=== PATIENT | female | born 1965 | race Caucasian/White ===

== ENCOUNTER → 2016-12-05 | Outpatient (CLI) | payer OTHER ==
[~2016-12-05] MED LIST: ATEN-173 PO; CLON0.5T3 PO; PARO1TAB27 PO; ZNTT/150 PO
--- NOTE | 2016-12-05 15:07 | DIAGNOSTIC IMAGING REPORT ---
CHEST 2 VIEWS ROUTINE HISTORY: Cough. COMPARISON: Chest 07/26/2015. Chest CT outside hospital 04/08/2016. FINDINGS: No pneumothorax. The right lung remains clear. The heart is normal in size. Stable volume loss within the left hemithorax with blunting of the left lateral costophrenic sulcus. There is hyperexpansion of the remaining left lung. This is consistent with prior left upper lobectomy. No new focal lung consolidations. No evidence for pulmonary edema. IMPRESSION: Stable postoperative changes within the left hemithorax. No new focal lung consolidations to suggest pneumonia. Electronically signed by: Bhavik Lowe M.D. 12/05/2016 3:06 PM Dictated Date/Time: 12/05/2016 3:03 PM
[2016-12-05 16:26] LABS: INFLUENZA A PCR Neg for Influ A (NEG); INFLUENZA B PCR Neg for Influ B (NEG)
== END | disposition home or self-care (01) ==
LOC: C.RAD 14:04
PROVIDERS: ATTEND Internal Medicine Pulmonary Disease
DX: R05 Cough (principal)

== ENCOUNTER → 2017-01-01 | Outpatient (CLI) | payer OTHER ==
--- NOTE | 2017-01-02 12:17 | MAMMOGRAPHY REPORT ---
BILATERAL DIGITAL SCREENING MAMMOGRAM TOMOSYNTHESIS WITH CAD: 01/01/2017 CLINICAL HISTORY: Routine screening. Patient has no complaints. TECHNIQUE: Breast tomosynthesis in addition to standard 2D mammography was performed. Current study was also evaluated with a Computer Aided Detection (CAD) system. COMPARISON: Comparison is made to exams dated: 12/28/2015 mammogram, 07/16/2015 mammogram, 01/12/2015 mammogram, 12/25/2014 mammogram, 10/14/2012 mammogram, and 07/24/2012 ultrasound - [facility] [address] BREAST COMPOSITION: The tissue of both breasts is extremely dense, which lowers the sensitivity of mammography. FINDINGS: There is a stable metallic biopsy marker in the 6:00 left breast within a stable partiall y circumscribed mass, best visualized on the tomosynthesis images. Linear scar markers overlie the periareolar and lateral left breast. There are stable benign-appearing coarse calcifications in the left breast. No new suspicious mass, architectural distortion or cluster of microcalcifications is seen. IMPRESSION: ACR BI-RADS CATEGORY 1: NEGATIVE There is no mammographic evidence of malignancy. A 1 year screening mammogram is recommended. The p atient will receive written notification of the results. Approximately 10% of breast cancers are not detected with mammography. A negative mammographic repor t should not delay biopsy if a clinically suggestive mass is present. Sindhu Fishman M.D. ay/:01/01/2017 22:00:58 Pourer Metal: Radha CARNES)(Mina), [facility] letter sent: Normal 1/2 BI-RADS Code: ACR BI-RADS Category 1: Negative
== END | disposition home or self-care (01) ==
LOC: C.MAMM 13:06
PROVIDERS: ATTEND Family Medicine
DX: Z12.31 Encounter for screening mammogram for malignant neoplasm of breast (principal)

== ENCOUNTER → 2017-06-22 | Outpatient (CLI) | payer OTHER ==
--- NOTE | 2017-06-22 10:05 | DIAGNOSTIC IMAGING REPORT ---
CHEST 2 VIEWS ROUTINE CLINICAL HISTORY: [id number] COMPARISON STUDY: 12/05/2016 FINDINGS: The cardiac and mediastinal contours remain stable. Postsurgical changes are evident within the left hemithorax. There is chronic pleural scarring at the left lung base. The right lung is clear.[ IMPRESSION: Postsurgical changes of a presumed prior left lobectomy. No active disease in the chest. Electronically signed by: Nnamdi De Leon M.D. 06/22/2017 10:03 AM Dictated Date/Time: 06/22/2017 10:03 AM
[2017-06-22 14:18] LABS: INFLUENZA A PCR Neg for Influ A (NEG); INFLUENZA B PCR Neg for Influ B (NEG)
== END | disposition home or self-care (01) ==
LOC: C.RAD1850 09:44
PROVIDERS: ATTEND Physician Assistant
DX: R05 Cough (principal)

== ENCOUNTER → 2018-01-03 | Outpatient (CLI) | payer OTHER ==
[~2018-01-03] MED LIST changes: +RANI150T85 PO; -ZNTT/150 PO
--- NOTE | 2018-01-03 14:43 | MAMMOGRAPHY REPORT ---
BILATERAL DIGITAL SCREENING MAMMOGRAM TOMOSYNTHESIS WITH CAD: 01/03/2018 CLINICAL HISTORY: Routine screening. Patient has no complaints. TECHNIQUE: Breast tomosynthesis in addition to standard 2D mammography was performed. Current study was also evaluated with a Computer Aided Detection (CAD) system. COMPARISON: Comparison is made to exams dated: 01/01/2017 mammogram, 12/28/2015 mammogram, 07/16/2015 m ammogram, 01/12/2015 mammogram, 12/25/2014 mammogram, and 10/14/2012 mammogram - [facility] enter. BREAST COMPOSITION: The tissue of both breasts is extremely dense, which lowers the sensitivity of m ammography. FINDINGS: No suspicious masses, calcifications, or areas of architectural distortion are noted in ei ther breast. There has been no significant interval change compared to prior exams. Linear scar nisha ers denote scars on the left breast. There are stable postsurgical changes in the left anterior meme st. A circumscribed benign-appearing mass with an associated biopsy clip in the left 6:00 breast is not significantly changed. Scattered benign-appearing calcifications are again noted. IMPRESSION: ACR BI-RADS CATEGORY 2: BENIGN There is no mammographic evidence of malignancy. A 1 year screening mammogram is recommended. The pa tient will receive written notification of the results. Approximately 10% of breast cancers are not detected with mammography. A negative mammographic report should not delay biopsy if a clinically suggestive mass is present. Leonora Leo M.D. /:01/03/2018 13:44:34 Landscaping Specialist: Kellen Rivera, [facility] letter sent: Normal 1/2 BI-RADS Code: ACR BI-RADS Category 2: Benign
== END | disposition home or self-care (01) ==
LOC: C.MAMM 13:13
PROVIDERS: ATTEND Family Medicine
DX: Z12.31 Encounter for screening mammogram for malignant neoplasm of breast (principal)

== ENCOUNTER 2023-06-11 05:23 | Inpatient (IN) ==
[2023-06-11] MEDS ORDERED: ALBUT/IPRATROP 3MG/0.5MG NEB 3 ML VIAL ONE ×2 (05:34→08:33)
[2023-06-11] MEDS ORDERED: ALBUT/IPRATROP 3MG/0.5MG NEB 3 ML VIAL NEB STA (05:35)
[2023-06-11] MEDS ORDERED: DEXAMETHASONE SOD INJ 4 MG/ML VIAL IV STA (05:36)
[2023-06-11] MEDS ORDERED: DEXAMETHASONE SOD INJ 4 MG/ML VIAL ONE (05:38)
[2023-06-11] MEDS ORDERED: ONDANSETRON INJ 2 MG/ML 2 ML VIAL ONE (05:44)
[2023-06-11] MEDS: MAGNESIUM SULFATE / D5W 1 GM/100 ML BAG IV SCH ×2 (05:49→06:12)
[2023-06-11] MEDS ORDERED: ALBUT/IPRATROP 3MG/0.5MG NEB 3 ML VIAL NEB ONE ×2 (05:50→08:38)
[2023-06-11] MEDS ORDERED: FAMOTIDINE 20MG IV PUSH 20 MG/5 ML SYR IV STA (05:59)
[2023-06-11] MEDS ORDERED: diphenhydrAMINE 50 MG/ML VIAL IV STA (05:59)
[2023-06-11] MEDS ORDERED: EPINEPHrine INJ 1 MG/ML AMP IM STA (05:59)
[2023-06-11 06:14] LABS: Basophils # (auto) 0.04 K/uL (0.00-0.20); Basophils % (auto) 0.2 %; Hematocrit (blood only) 31.7 % (37.0-47.0); Hemoglobin 11.7 g/dl (12.0-16.0); Immature Granulocytes # (auto) 0.08 K/uL (0.01-0.20); Immature Granulocytes % (auto) 0.5 %; Lymphocytes # (auto) 1.88 K/uL (1.20-3.40); Lymphocytes % (auto) 10.7 %; Mean Corpuscular Hemoglobin 30.3 pg (25.0-34.0); Mean Corpuscular Hgb Conc 36.9 g/dL (32.0-36.0); Mean Corpuscular Volume 82.1 fL (80.0-100.0); Mean Platelet Volume 10.8 fL (9.4-12.4); Monocytes # (auto) 1.04 K/uL (0.11-0.59); Monocytes % (auto) 5.9 %; Neutrophils # (auto) 14.52 K/uL (1.40-6.50); Neutrophils % (auto) 82.7 %; Platelet Count 197 K/uL (130-400); RDW Coefficient of Variation 14.2 % (11.5-14.5); RDW Standard Deviation 41.5 fL (36.4-46.3); Red Blood Count 3.86 M/uL (4.20-5.40); White Blood Count 17.56 K/ul (4.8-10.8)
--- NOTE | 2023-06-11 06:21 | Emergency Department Note ---
Impression & Plan Anaphylaxis, Pneumonia, Acute hyponatremia Patient was admitted to the [facility]. ED Provider Note NAME: MERLE JENSEN AGE: 58 SEX: F ARRIVES VIA: Walk-In INFORMANT: Patient and her ED PROVIDER(S): Emmie Cortez DO CHIEF COMPLAINT: Severe respiratory distress PLAN: Disposition: Admit to the [facility] service Condition: Critical MEDICAL DECISION MAKING: This is a 58-year-old female patient with history of asthma, COPD and lung cancer who presents to the emergency department with severe respiratory distress. Presenting O2 saturation was 54%. explains that the patient was in her usual state of health until Sunday evening when she had been with friends drinking [place] wine coolers around a camp fire. She had an acute and sudden onset of shortness of breath and wheezing. The symptoms continued till later that evening. Symptoms seem to improve somewhat overnight and throughout the day on Sunday but then drastically worsened again Sunday night into Sunday. The patient had been wheezing and coughing. Upon presentation to the emergency department, the patient's O2 saturation was 54% she had very little air movement with extreme wheezing on inspiration and expiration. She was quickly treated with DuoNeb treatments, supplemental oxygen, IV magnesium and IV steroids. Patient was noted to be significantly hyponatremic was bolused with IV normal saline solution. After some time, the patient's remembered that years ago, she had a very similar reaction to this after drinking malt liquor. At that point I felt this may be an acute allergic reaction as a cause of her severe hypoxia and wheezing. The patient was given IM epinephrine, IV Benadryl and IV Pepcid. Patient had an ABG performed which showed a pH of 7.31, PCO2 of 49 and PO2 of 54 bicarb is 24.8 Triage Nursing notes reviewed and agree with them. Additional history obtained from the patient's who brought her here Prior medical records reviewed Vital Signs: reviewed and remarkable for significant hypoxia Differential diagnosis: Aspiration pneumonia, pneumothorax, COPD exacerbation, acute asthma attack, allergic reaction ER treatment provided: personnel monitor Supplemental oxygen Twelve-lead EKG DuoNeb treatment IV Decadron IV magnesium IM epinephrine IV Benadryl IV Pepcid IV Rocephin Diagnostics interpreted by me: ECG: Normal sinus rhythm at a rate of 97 with T wave inversions in lead I and aVL. There is no ST segment elevation or signs of ischemia. There is no ectopy. Cardiac Monitoring: Normal sinus rhythm at a rate of 97 Laboratory studies: See below Imaging studies: As per my independent interpretation Portable chest x-ray: Right basilar opacity CT scan of the chest: Pending HPI: 58/F arrives for evaluation of severe shortness of breath. Patient was in her usual state of health 2 days ago when she had a sudden onset of severe shortness of breath and wheezing. This seemed to coincide with drinking some [place] wine coolers. The patient denies coughing or potentially aspirating while drinking these beverages. She did have difficulty breathing and significant wheezing for some time after this but symptoms began to improve over the weekend but then dramatically worsened again last night to the point that hafsa black asked her to bring her to the hospital. PAST MEDICAL HISTORY:COPD, asthma, lung cancer with prior lobectomy PAST SURGICAL HISTORY:See Below FAMILY HISTORY:See Below SOCIAL HISTORY:Patient lives with her and still smokes occasionally HOME MEDICATIONS:See list ALLERGIES:See long list VITALS:See Below PHYSICAL EXAMINATION: HEENT: Head - normocephalic and atraumatic. Pupils are equal, round, and reactive to light. Extraocular eye muscles are intact, and sclera are anicteric. Nose - moist nasal mucosa without discharge. Mouth - moist buccal mucosa. Oropharynx is nonerythematous and there is no tonsillar exudate or edema noted. No uvular edema noted. Neck: Supple; no cervical lymphadenopathy or JVD Heart: Regular rate and rhythm. There is a normal S1 and S2 with no murmurs, clicks, or gallops appreciated. Lungs: Very little air movement with inspiratory and expiratory wheezing Abdomen: Soft, completely nontender, nondistended, with good bowel sounds. There are no palpable pulsatile masses or hepatosplenomegaly. There is no guarding, rigidity, or rebound noted. Extremities: No evidence of cyanosis, clubbing, or edema. There are easily palpable peripheral pulses. Skin: warm and dry with good turgor and no rashes. ED COURSE: Patient was evaluated in room B1 emergently. The patient's O2 saturation was 54% in triage. Patient was placed on a nonrebreather mask. She was placed on the cardiac nurse specialist. An order was placed for continuous cardiac monitoring. She was in a normal sinus rhythm at a rate of 97. A twelve-lead EKG was obtained. She was started on a DuoNeb treatment. An IV lock was initiated and labs are drawn as above. The patient was given a dose of IV Decadron. A luca ble chest x-ray was performed which showed evidence of a fairly large right basilar opacity. There is evidence of emphysematous changes. The patient was started on IV magnesium. Patient's was at the bedside and was trying to provide more history. Patient and remembered that sometime many years ago the patient had a very similar episode to this when she had an allergic reaction to malt liquor. At this point, I switched gears and began to treat the patient for acute anaphylaxis. She was given a dose of IM epinephrine, IV Benadryl, and IV Pepcid. She was placed on an hour-long DuoNeb treatment. An ABG was obtained. Overall, the patient's condition and is significantly improved after this. Patient had an elevated D-dimer and went for CT scan of the chest which confirmed that she had a fairly large right basilar opacity. She has significant allergies to antibiotics but has taken Keflex and clindamycin successfully in the past. I will treat her with IV Rocephin to start. I discussed the case with Dr. Pham from the [facility] and they will admit for further inpatient care. I have personally spent greater than 75 minutes of critical care time in the direct management of this patient. This includes bedside care, interpretation of diagnostic studies, and testing, discussion with consultants, patient, and family members, and other required patient management activities. This 75 minutes is in excess of all separately billable procedures. 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 Lumbar stenosis (09/25/14) Malignant neoplasm of upper lobe, left bronchus or lung Pulmonary emphysema Pulmonary nodule Surgical History H/O breast surgery H/O splenectomy History of D&C History of lumbar surgery Family History Father Hypertension Mother Lung cancer Other Breast cancer COPD (chronic obstructive pulmonary disease) Diabetes Social History Smoking Status: Former smoker Smoking End Date: Quit 04/24/23; Hx Alcohol Use: Yes Hx Substance Use: No Communication Ability: Effective Anesthetic Assistant Required: No Beliefs That Will Affect Care: None marital status: Current Living Situation: Significant Other current occupational status: disabled Other Information That Helps Us Care for You: No Feels Safe at Home: Yes Safety Concerns: Feels Safe At This Time Assistive Devices: Denture - Lower and Glasses Allergies Allergies Allergy/AdvReac Type Severity Reaction Status Date / Time Bactrim Allergy Intermediate HIVES Verified 07/26/15 07:15 Sulfa (Sulfonamide Allergy Intermediate BACTRIM- Verified 08/01/21 10:17 Antibiotics) HIVES sulfamethoxazole Allergy Intermediate HIVES Verified 08/01/21 10:17 trimethoprim Allergy Intermediate HIVES Verified 08/01/21 10:17 erythromycin base Allergy Unknown Verified 08/01/21 10:17 metaxalone Allergy Unknown Verified 08/01/21 10:17 morphine Allergy Unknown . Verified 08/01/21 10:17 neomycin Allergy Unknown Verified 08/01/21 10:17 Quinolones Allergy Unknown Verified 08/01/21 10:17 tetracycline Allergy Unknown Verified 08/01/21 10:17 amoxicillin [From Augmentin] Allergy Verified 08/01/21 10:17 clavulanic acid Allergy Verified 08/01/21 10:17 [From Augmentin] umeclidinium Allergy Verified 08/01/21 10:17 [From Anoro Ellipta] vilanterol Allergy Verified 08/01/21 10:17 [From Anoro Ellipta] moxifloxacin AdvReac Unknown hives Verified 08/01/21 10:17 Home Meds Home Medications Medication Instructions Recorded Confirmed aripiprazole 5 mg tablet (Abilify) 5 mg PO HS 12/03/19 06/11/23 aspirin 81 mg tablet 81 mg PO DAILY 02/04/20 06/11/23 cetirizine 10 mg tablet 10 mg PO DAILY 02/04/20 06/11/23 clonazepam 0.5 mg tablet 0.5 mg PO BID PRN Anxiety 02/04/20 06/11/23 amlodipine 10 mg tablet 10 mg PO DAILY 08/01/21 06/11/23 losartan 50 mg tablet 50 mg PO BID 08/01/21 06/11/23 atorvastatin 20 mg tablet 20 mg PO DAILY 06/11/23 06/11/23 carvedilol 25 mg tablet 25 mg PO BID 06/11/23 06/11/23 furosemide 20 mg tablet 20 mg PO DAILY 06/11/23 06/11/23 paroxetine HCl 40 mg tablet 40 mg PO DAILY 06/11/23 06/11/23 Previous Rx's Medication Instructions Recorded albuterol sulfate 2.5 mg/3 mL 2.5 mg (3 mL) inhalation Q4H PRN 08/14/19 (0.083 %) solution for nebulization shortness of breath or wheezing #180 mL albuterol sulfate 90 mcg/actuation 2 puff inhalation Q4H PRN 02/20/22 aerosol inhaler (Ventolin HFA) shortness of breath ,coughing or wheezing #18 grams Results & Data (ED) Vital Signs Vital Signs - 24 hr 06/11/23 05:28 06/11/23 05:35 06/11/23 05:54 Temperature 36.7 C Temperature Source Temporal Artery Scan Pulse Rate 112 H 98 H Pulse Rate [Right Finger] Pulse Rate from SpO2 Sensor Respiratory Rate 40 H Respiratory Effort / Characteristics Blood Pressure 191/88 H Blood Pressure [Right Arm] Blood Pressure Mean 122 Blood Pressure Mean [Right Arm] Blood Pressure Position Sitting Pulse Oximetry 54 L 54 L Oxygen Delivery Method Room Air Room Air Oxygen Flow Rate Sepsis Recent Fever Within 48 Hours No Sepsis New/Unexplained Change in Mental Status N/A Sepsis Action Taken by Nursing Physician Notified Oxygen Flow Rate - Titration 15 Pulse Oximetry Post Tiitration 96 06/11/23 05:50 06/11/23 06:04 06/11/23 05:36 Temperature Temperature Source Pulse Rate 99 H Pulse Rate [Right Finger] 91 H 97 H Pulse Rate from SpO2 Sensor 99 H Respiratory Rate 22 24 24 Respiratory Effort / Characteristics Spontaneous Short of Breath Spontaneous Short of Breath Blood Pressure 188/114 H Blood Pressure [Right Arm] Blood Pressure Mean 138 Blood Pressure Mean [Right Arm] Blood Pressure Position Pulse Oximetry 97 94 98 Oxygen Delivery Method Non-rebreather Nasal Cannula Non-rebreather Oxygen Flow Rate 15 15 Sepsis Recent Fever Within 48 Hours Sepsis New/Unexplained Change in Mental Status Sepsis Action Taken by Nursing Oxygen Flow Rate - Titration Pulse Oximetry Post Tiitration 06/11/23 05:54 06/11/23 06:00 06/11/23 06:15 Temperature Temperature Source Pulse Rate 82 77 90 Pulse Rate [Right Finger] Pulse Rate from SpO2 Sensor 81 76 89 Respiratory Rate 22 20 22 Respiratory Effort / Characteristics Blood Pressure 163/93 H 159/88 H 169/89 H Blood Pressure [Right Arm] Blood Pressure Mean 116 111 115 Blood Pressure Mean [Right Arm] Blood Pressure Position Pulse Oximetry 96 93 91 Oxygen Delivery Method Non-rebreather Non-rebreather Nebulizer Oxygen Flow Rate Sepsis Recent Fever Within 48 Hours Sepsis New/Unexplained Change in Mental Status Sepsis Action Taken by Nursing Oxygen Flow Rate - Titration Pulse Oximetry Post Tiitration 06/11/23 06:30 06/11/23 06:45 06/11/23 07:43 Temperature Temperature Source Pulse Rate 77 75 Pulse Rate [Right Finger] 83 Pulse Rate from SpO2 Sensor 77 Respiratory Rate 22 24 20 Respiratory Effort / Characteristics Blood Pressure 156/87 H 173/87 H Blood Pressure [Right Arm] 175/87 H Blood Pressure Mean 110 115 Blood Pressure Mean [Right Arm] 116 Blood Pressure Position Pulse Oximetry 93 92 92 Oxygen Delivery Method Nebulizer Nasal Cannula Oxymask Oxygen Flow Rate 12 12 Sepsis Recent Fever Within 48 Hours Sepsis New/Unexplained Change in Mental Status Sepsis Action Taken by Nursing Oxygen Flow Rate - Titration Pulse Oximetry Post Tiitration 06/11/23 07:00 06/11/23 07:00 06/11/23 07:42 Temperature Temperature Source Pulse Rate 80 88 Pulse Rate [Right Finger] Pulse Rate from SpO2 Sensor 81 88 Respiratory Rate 21 27 H Respiratory Effort / Characteristics Blood Pressure 159/78 H Blood Pressure [Right Arm] Blood Pressure Mean 105 Blood Pressure Mean [Right Arm] Blood Pressure Position Pulse Oximetry 94 91 Oxygen Delivery Method High Flow Nasal Cannula High Flow Nasal Cannula Oxygen Flow Rate 12 12 Sepsis Recent Fever Within 48 Hours Sepsis New/Unexplained Change in Mental Status Sepsis Action Taken by Nursing Oxygen Flow Rate - Titration Pulse Oximetry Post Tiitration 06/11/23 07:44 06/11/23 07:44 06/11/23 07:45 Temperature Temperature Source Pulse Rate 84 84 Pulse Rate [Right Finger] Pulse Rate from SpO2 Sensor 83 84 Respiratory Rate 26 H 22 Respiratory Effort / Characteristics Blood Pressure 175/87 H Blood Pressure [Right Arm] Blood Pressure Mean 108 Blood Pressure Mean [Right Arm] Blood Pressure Position Pulse Oximetry 92 91 Oxygen Delivery Method High Flow Nasal Cannula Oxygen Flow Rate 12 Sepsis Recent Fever Within 48 Hours Sepsis New/Unexplained Change in Mental Status Sepsis Action Taken by Nursing Oxygen Flow Rate - Titration Pulse Oximetry Post Tiitration 06/11/23 08:15 06/11/23 08:00 Temperature Temperature Source Pulse Rate 85 Pulse Rate [Right Finger] Pulse Rate from SpO2 Sensor 86 Respiratory Rate 26 H Respiratory Effort / Characteristics Blood Pressure Blood Pressure [Right Arm] Blood Pressure Mean Blood Pressure Mean [Right Arm] Blood Pressure Position Pulse Oximetry 87 L 88 L Oxygen Delivery Method Nasal Cannula Oxymask Oxygen Flow Rate 14 Sepsis Recent Fever Within 48 Hours Sepsis New/Unexplained Change in Mental Status Sepsis Action Taken by Nursing Oxygen Flow Rate - Titration 15 Pulse Oximetry Post Tiitration 84 L Laboratory Data 06/11/23 05:40 06/11/23 05:40 Lab Results 06/11/23 06/11/23 06/11/23 Range/Units 05:40 05:40 05:40 WBC 17.56 H (4.8-10.8) K/ul RBC 3.86 L (4.20-5.40) M/uL Hgb 11.7 L (12.0-16.0) g/dl POC Hgb (12.0-16.0) g/dl Hct 31.7 L (37.0-47.0) % POC Hct (37-47) % MCV 82.1 (80.0-100.0) fL MCH 30.3 (25.0-34.0) pg MCHC 36.9 H (32.0-36.0) g/dL RDW Std Deviation 41.5 (36.4-46.3) fL RDW Coeff of Shanna 14.2 (11.5-14.5) % Plt Count 197 (130-400) K/uL MPV 10.8 (9.4-12.4) fL Immature Gran % (Auto) 0.5 % Neut % (Auto) 82.7 % Lymph % (Auto) 10.7 % [place] % (Auto) 5.9 % Eos % (Auto) 0.0 % Baso % (Auto) 0.2 % Neut # (Auto) 14.52 H (1.40-6.50) K/uL Lymph # (Auto) 1.88 (1.20-3.40) K/uL [place] # (Auto) 1.04 H (0.11-0.59) K/uL Eos # (Auto) 0.00 (0.00-0.50) K/uL Baso # (Auto) 0.04 (0.00-0.20) K/uL Immature Gran # (Auto) 0.08 (0.01-0.20) K/uL D-Dimer 1610 H* (0-500) ug/L FEU POC pH (7.35-7.45) POC pCO2 (35-46) mmHg POC pO2 (80-95) mmHg POC HCO3 (19-24) lacy/L POC Total CO2 (24-31) mmol/L POC Base Excess (-9-1.8) lacy/L POC ABG O2 Sat (90-95) % POC Sodium (135-144) mmol/L Sodium 118 L* (136-145) mmol/L POC Potassium (3.3-5.0) mmol/L Potassium 4.0 (3.5-5.1) mmol/L Chloride 87 L (98-107) mmol/L Carbon Dioxide 23 (21-32) mmol/L Anion Gap 8 (3-11) BUN 17 (6-23) mg/dl Creatinine 1.15 (0.6-1.2) mg/dl Est Cr Clr Drug Dosing 46.2 ml/min Est GFR ( Amer) 61.2 ml/min Est GFR (Non-Af Amer) 52.8 ml/min BUN/Creatinine Ratio 14.8 (10-20) Glucose 148 H (70-99(Fasting)) mg/dl Lactate (0.4-2.0) mmol/L Calcium 8.4 L (8.6-10.3) mg/dl Magnesium 1.5 L (1.7-2.4) mg/dl Total Bilirubin 1.9 H (0.2-1.0) mg/dl AST 36 (13-39) U/L ALT 25 (7-52) U/L Alkaline Phosphatase 82 (34-104) U/L Troponin I High Sens 90.1 H* (0-14) pg/ml Total Protein 7.3 (6.0-8.3) gm/dl Albumin 4.3 (3.4-5.0) gm/dl Globulin 3.0 (2.5-4.0) gm/dl Albumin/Globulin Ratio 1.4 (0.9-2) Procalcitonin (0-0.5) ng/ml 06/11/23 06/11/23 06/11/23 Range/Units 05:40 05:54 06:22 WBC (4.8-10.8) K/ul RBC (4.20-5.40) M/uL Hgb (12.0-16.0) g/dl POC Hgb 12.6 (12.0-16.0) g/dl Hct (37.0-47.0) % POC Hct 37 (37-47) % MCV (80.0-100.0) fL MCH (25.0-34.0) pg MCHC (32.0-36.0) g/dL RDW Std Deviation (36.4-46.3) fL RDW Coeff of Shanna (11.5-14.5) % Plt Count (130-400) K/uL MPV (9.4-12.4) fL Immature Gran % (Auto) % Neut % (Auto) % Lymph % (Auto) % [place] % (Auto) % Eos % (Auto) % Baso % (Auto) % Neut # (Auto) (1.40-6.50) K/uL Lymph # (Auto) (1.20-3.40) K/uL [place] # (Auto) (0.11-0.59) K/uL Eos # (Auto) (0.00-0.50) K/uL Baso # (Auto) (0.00-0.20) K/uL Immature Gran # (Auto) (0.01-0.20) K/uL D-Dimer (0-500) ug/L FEU POC pH 7.31 L (7.35-7.45) POC pCO2 49 H (35-46) mmHg POC pO2 54 L (80-95) mmHg POC HCO3 25 H (19-24) lacy/L POC Total CO2 26 (24-31) mmol/L POC Base Excess -1.0 (-9-1.8) lacy/L POC ABG O2 Sat 84.0 L (90-95) % POC Sodium 118 L* (135-144) mmol/L Sodium (136-145) mmol/L POC Potassium 3.9 (3.3-5.0) mmol/L Potassium (3.5-5.1) mmol/L Chloride (98-107) mmol/L Carbon Dioxide (21-32) mmol/L Anion Gap (3-11) BUN (6-23) mg/dl Creatinine (0.6-1.2) mg/dl Est Cr Clr Drug Dosing ml/min Est GFR ( Amer) ml/min Est GFR (Non-Af Amer) ml/min BUN/Creatinine Ratio (10-20) Glucose (70-99(Fasting)) mg/dl Lactate 1.0 (0.4-2.0) mmol/L Calcium (8.6-10.3) mg/dl Magnesium (1.7-2.4) mg/dl Total Bilirubin (0.2-1.0) mg/dl AST (13-39) U/L ALT (7-52) U/L Alkaline Phosphatase (34-104) U/L Troponin I High Sens (0-14) pg/ml Total Protein (6.0-8.3) gm/dl Albumin (3.4-5.0) gm/dl Globulin (2.5-4.0) gm/dl Albumin/Globulin Ratio (0.9-2) Procalcitonin 0.29 (0-0.5) ng/ml Administered Medications Aripiprazole (Aripiprazole 5 Mg Tab) 5 mg PO HS [facility] Stop: 07/11/23 20:59 Last Admin: 06/11/23 15:45 Dose: 5 mg Documented By: MARIANNA Carvedilol (Carvedilol 25 Mg Tab) 25 mg PO BIDM [facility] Stop: 07/11/23 16:59 Last Admin: 06/11/23 15:45 Dose: 25 mg Documented By: MARIANNA Ceftriaxone Sodium 1,000 mg/ (Dextrose) 60 mls @ 100 mls/hr IV Q24H [facility]; Protocol Stop: 06/18/23 15:59 Last Infusion: 06/11/23 16:26 Dose: 0 mls/hr Documented By: Admin: 06/11/23 15:55 Dose: 100 mls/hr Documented By: MARIANNA Methylprednisolone 30 mg/ (Syringe) 0.48 mls @ 1.5 mls/min IV Q8H [facility] Stop: 07/11/23 15:59 Last Admin: 06/11/23 16:17 Dose: 1.5 mls/min Documented By: MARIANNA Losartan Potassium (Losartan Potassium 50 Mg Tab) 50 mg PO BID [facility] Stop: 07/11/23 20:59 Last Admin: 06/11/23 15:45 Dose: 50 mg Documented By: MARIANNA Discontinued Medications Albuterol (Albut/Ipratrop 3mg/0.5mg Neb 3 Ml Vial) Confirm Administered Dose 3 ml .ROUTE .STK-MED ONE Stop: 06/11/23 05:35 Last Admin: 06/11/23 05:49 Dose: Not Given Documented By: BARRETT Albuterol (Albut/Ipratrop 3mg/0.5mg Neb 3 Ml Vial) 3 ml NEB NOW STA; Protocol Stop: 06/11/23 05:36 Last Admin: 06/11/23 05:49 Dose: 3 ml Documented By: BARRETT Albuterol (Albut/Ipratrop 3mg/0.5mg Neb 3 Ml Vial) 12 ml NEB ONE ONE; Protocol Stop: 06/11/23 05:51 Last Admin: 06/11/23 06:03 Dose: 12 ml Documented By: KRISTEL Albuterol (Albut/Ipratrop 3mg/0.5mg Neb 3 Ml Vial) Confirm Administered Dose 12 ml .ROUTE .STK-MED ONE Stop: 06/11/23 08:34 Last Admin: 06/11/23 08:36 Dose: 12 ml Documented By: GREG Albuterol (Albut/Ipratrop 3mg/0.5mg Neb 3 Ml Vial) 12 ml NEB ONE ONE; Protocol Stop: 06/11/23 08:39 Last Admin: 06/11/23 08:40 Dose: Not Given Documented By: GREG Dexamethasone (Dexamethasone Sod Inj 4 Mg/Ml Vial) 10 mg IV NOW STA Stop: 06/11/23 05:37 Last Admin: 06/11/23 05:49 Dose: 10 mg Documented By: BARRETT Dexamethasone (Dexamethasone Sod Inj 4 Mg/Ml Vial) Confirm Administered Dose 12 mg .ROUTE .STK-MED ONE Stop: 06/11/23 05:39 Last Admin: 06/11/23 05:49 Dose: Not Given Documented By: BARRETT Diphenhydramine HCl (Diphenhydramine 50 Mg/Ml Vial) 25 mg IV NOW STA Stop: 06/11/23 06:00 Last Admin: 06/11/23 06:05 Dose: 25 mg Documented By: BARRETT Epinephrine HCl (Epinephrine Inj 1 Mg/Ml Amp) 0.3 mg IM NOW STA Stop: 06/11/23 06:00 Last Admin: 06/11/23 06:06 Dose: 0.3 mg Documented By: BARRETT Epinephrine HCl (Epinephrine Adult Auto-Inject 0.3 Mg Syr) 0.3 mg IM NOW STA Stop: 06/11/23 08:21 Last Admin: 06/11/23 08:24 Dose: 0.3 mg Documented By: EDWIGE Furosemide (Furosemide 40 Mg/4 Ml Vial) Confirm Administered Dose 80 mg IV .STK- MED ONE Stop: 06/11/23 10:26 Last Admin: 06/11/23 11:06 Dose: Not Given Documented By: MARIANNA Furosemide (Furosemide 40 Mg/4 Ml Vial) 80 mg IV ONE ONE Stop: 06/11/23 11:01 Last Admin: 06/11/23 11:07 Dose: 80 mg Documented By: MARIANNA Magnesium Sulfate/Dextrose (Magnesium Sulfate / D5w) 1 gm in 100 mls @ 600 mls/hr IV Q10M [facility] Stop: 06/11/23 05:56 Last Infusion: 06/11/23 06:28 Dose: 0 mls/hr Documented By: Admin: 06/11/23 06:12 Dose: 600 mls/hr Documented By: Infusion: 06/11/23 06:00 Dose: 600 mls/hr Documented By: Admin: 06/11/23 05:49 Dose: 600 mls/hr Documented By: BARRETT Famotidine (Pepcid 20mg Iv Push) 20 mg in 5 mls @ 2.5 mls/min IV NOW STA Stop: 06/11/23 06:00 Last Admin: 06/11/23 06:06 Dose: 2.5 mls/min Documented By: BARRETT Sodium Chloride (Nss) 500 mls @ 999 mls/hr IV .Q31M ONE Stop: 06/11/23 07:25 Last Infusion: 06/11/23 08:28 Dose: 0 mls/hr Documented By: Admin: 06/11/23 07:43 Dose: 999 mls/hr Documented By: SARAH Ioversol (Ioversol 350 Mg 125ml Prefilled Syringe) 120 ml IV ONCE ONE Stop: 06/11/23 07:26 Last Admin: 06/11/23 07:26 Dose: 120 ml Documented By: JAELYN Ondansetron HCl (Ondansetron Inj 2 Mg/Ml 2 Ml Vial) Confirm Administered Dose 4 mg .ROUTE .STK-MED ONE Stop: 06/11/23 05:45 Last Admin: 06/11/23 05:49 Dose: 4 mg Documented By: BARRETT Imaging Data Radiologist's Impression: Chest X-Ray 06/11/23 05:35 XR chest 1V portable CLINICAL HISTORY: Dyspnea. COMPARISON STUDY: Chest radiograph June 22, 2017. Chest CT November 18, 2019 and June 01, 2021. FINDINGS: There is no pneumothorax. Blunting of the left costophrenic angle is chronic. There is a suspected trace right pleural effusion. There is asymmetric interstitial thickening within the right lung. Right basilar airspace opacity is present. Postoperative findings within the left lung with volume loss are noted. A 2.8 x 1.1 cm elliptical left apical opacity is present. IMPRESSION: 1. Asymmetric interstitial thickening within the right lung. This favors asymmetric interstitial pulmonary edema. 2. Right basilar airspace opacity. Pneumonia/aspiration pneumonitis cannot be excluded. Radiographic follow-up to ensure resolution is recommended. 3. 2.8 x 1.1 cm left apical opacity. This may reflect scarring but should be assessed on follow-up imaging studies. ACT 112: Negative or not required by law. Electronically signed by: Kwame Weir M.D. 06/11/2023 6:50 AM Chest CTA 06/11/23 06:55 CHEST CTA for PULMONARY ARTERIES CT DOSE: 288.01 mGy.cm HISTORY: Shortness of breath. TECHNIQUE: Multiaxial CT images of the chest were performed following the intravenous administration of contrast to evaluate the pulmonary arteries. 3D/Maximal intensity projection images were also obtained. Sagittal and coronal reformations were also reviewed. A dose lowering technique was utilized adhering to the principles of ALARA. COMPARISON STUDY: Outside hospital chest CT 06/01/2021. FINDINGS: Severe calcified plaque at the distal thoracic aorta resulting in severe narrowing. This remains unchanged. Otherwise, there is a normal caliber thoracic aorta with no evidence for dissection. Questionable filling defect seen within the right lower lobe subsegmental pulmonary arteries on image 92 favors respiratory motion artifact. Otherwise, no additional filling defects within the pulmonary arteries to suggest a pulmonary embolus. Mild right hilar lymphadenopathy which has progressed. A dominant right hilar lymph node measures 11 mm in short axis diameter. No mediastinal or left hilar lymphadenopathy. There is a small right pleural effusion. There is a small pericardial effusion. The heart is mildly enlarged. Limited views the upper abdomen demonstrate a normal spleen and visualized adrenal glands. Retrograde opacification of contrast into the hepatic veins is noted. Normal caliber esophagus. Mild body wall edema. Prior left thoracotomy changes from a left upper lobectomy. Otherwise, no acute fractures identified within the chest. Consolidation within the right lower lobe posteriorly with additional patchy densities within the right lung and interlobular septal thickening. This favors a pneumonia. A superimposed asymmetric pulmonary edema could also have a similar appearance. There is progressive linear density within the left lung apex emphysema is noted. Punctate calcified granuloma within the left upper lung zone. IMPRESSION: 1. Questionable filling defect seen within the right middle lobe subsegmental pulmonary arteries favors motion artifact. Otherwise, no filling defects within the remaining pulmonary arteries to suggest a pulmonary embolus. 2. Consolidation within the right lower lobe posteriorly with additional smaller patchy airspace opacities within the right lung. This favors a pneumonia. There is also asymmetric interlobular septal thickening within the right lung with may represent superimposed asymmetric pulmonary edema. 3. Emphysema. 4. Small right pleural effusion and a small pericardial effusion. 5. The heart is enlarged. 6. Linear density within the left lung apex is progressed. Follow-up recommended to ensure stability/resolution. 7. Prior left upper lobectomy. 8. Mild right hilar lymphadenopathy this may be reactive. [address] foll ow-up recommended to ensure resolution. ACT 112: Positive. There are findings on this exam that require communication between the performing entity and the patient following Patient Test Result Information Act ([place] Act 112) guidelines. Electronically signed by: Bhavik Lowe M.D. 06/11/2023 7:51 AM Discharge Plan Visit Data Chief Complaint: Shortness of Breath/Dyspnea Stated Complaint: SOB,BACK PAIN,CHEST PAIN, NUMBENESS IN RIGHT ARM ED Provider: Emmie Cortez Discharge Problem: Anaphylaxis, Pneumonia, Acute hyponatremia Patient Disposition: Admitted As Inpatient Discharge Instructions Interventions: ED Discharge Assessment Last Done: 06/11/23 09:57
[2023-06-11 06:24] LABS: Albumin Globulin Ratio 1.4 (0.9-2); Albumin Level 4.3 gm/dl (3.4-5.0); BUN Creatinine Ratio 14.8 (10-20); Bilirubin,Total 1.9 mg/dl (0.2-1.0); Calcium 8.4 mg/dl (8.6-10.3); Creatinine Clr Calc Pharmacy 46.2 ml/min; Est GFR (African American) 61.2 ml/min; Est GFR (Non-African American) 52.8 ml/min; Magnesium 1.5 mg/dl (1.7-2.4); Total Protein 7.3 gm/dl (6.0-8.3)
[2023-06-11 06:29] LABS: Troponin I High Sensitivity 90.1 pg/ml (0-14)
--- NOTE | 2023-06-11 06:52 | XRay Report ---
XR chest 1V portable CLINICAL HISTORY: Dyspnea. COMPARISON STUDY: Chest radiograph June 22, 2017. Chest CT November 18, 2019 and June 01. FINDINGS: There is no pneumothorax. Blunting of the left costophrenic angle is chronic. There is a vee spected trace right pleural effusion. There is asymmetric interstitial thickening within the right margaret ng. Right basilar airspace opacity is present. Postoperative findings within the left lung with volum e loss are noted. A 2.8 x 1.1 cm elliptical left apical opacity is present. IMPRESSION: 1. Asymmetric interstitial thickening within the right lung. This favors asymmetric interstitial pulm onary edema. 2. Right basilar airspace opacity. Pneumonia/aspiration pneumonitis cannot be excluded. Radiographic follow-up to ensure resolution is recommended. 3. 2.8 x 1.1 cm left apical opacity. This may reflect scarring but should be assessed on follow-up im aging studies. ACT 112: Negative or not required by law. Electronically signed by: Kwame Weir M.D. 06/11/2023 6:50 AM
[2023-06-11 06:54] LABS: D Dimer 1610 ug/L FEU (0-500)
[2023-06-11] MEDS ORDERED: SODIUM CHLORIDE 0.9% 500 ML IV ONE (06:55)
[2023-06-11] MEDS ORDERED: IOVERSOL 350 MG 125mL Prefilled Syringe IV ONE (07:25)
[2023-06-11] MEDS ORDERED: cefTRIAXone SODIUM 1,000 MG in DEXTROSE 5% 50 ML IV SCH (07:45)
--- NOTE | 2023-06-11 07:53 | CT Scan Report ---
CHEST CTA for PULMONARY ARTERIES CT DOSE: 288.01 mGy.cm HISTORY: Shortness of breath. TECHNIQUE: Multiaxial CT images of the chest were performed following the intravenous administration of contrast to evaluate the pulmonary arteries. 3D/Maximal intensity projection images were also obta ined. Sagittal and coronal reformations were also reviewed. A dose lowering technique was utilized a dhering to the principles of ALARA. COMPARISON STUDY: Outside hospital chest CT 06/01/2021. FINDINGS: Severe calcified plaque at the distal thoracic aorta resulting in severe narrowing. This re geena unchanged. Otherwise, there is a normal caliber thoracic aorta with no evidence for dissection. Questionable filling defect seen within the right lower lobe subsegmental pulmonary arteries on imag e 92 favors respiratory motion artifact. Otherwise, no additional filling defects within the pulmonar y arteries to suggest a pulmonary embolus. Mild right hilar lymphadenopathy which has progressed. A d ominant right hilar lymph node measures 11 mm in short axis diameter. No mediastinal or left hilar ly mphadenopathy. There is a small right pleural effusion. There is a small pericardial effusion. The he art is mildly enlarged. Limited views the upper abdomen demonstrate a normal spleen and visualized ad renal glands. Retrograde opacification of contrast into the hepatic veins is noted. Normal caliber es ophagus. Mild body wall edema. Prior left thoracotomy changes from a left upper lobectomy. Otherwise, no acute fractures identified within the chest. Consolidation within the right lower lobe posteriorl y with additional patchy densities within the right lung and interlobular septal thickening. This fav ors a pneumonia. A superimposed asymmetric pulmonary edema could also have a similar appearance. Ther e is progressive linear density within the left lung apex emphysema is noted. Punctate calcified gran uloma within the left upper lung zone. IMPRESSION: 1. Questionable filling defect seen within the right middle lobe subsegmental pulmonary arteries favo rs motion artifact. Otherwise, no filling defects within the remaining pulmonary arteries to suggest a pulmonary embolus. 2. Consolidation within the right lower lobe posteriorly with additional smaller patchy airspace opac ities within the right lung. This favors a pneumonia. There is also asymmetric interlobular septal th ickening within the right lung with may represent superimposed asymmetric pulmonary edema. 3. Emphysema. 4. Small right pleural effusion and a small pericardial effusion. 5. The heart is enlarged. 6. Linear density within the left lung apex is progressed. Follow-up recommended to ensure stability/ resolution. 7. Prior left upper lobectomy. 8. Mild right hilar lymphadenopathy this may be reactive. [address] follow-up recommended to e nsure resolution. ACT 112: Positive. There are findings on this exam that require communication between the performing entity and the patient following Patient Test Result Information Act ([place] Act 112) guidelines. Electronically signed by: Bhavik Lowe M.D. 06/11/2023 7:51 AM
[2023-06-11] MEDS ORDERED: EPINEPHrine ADULT AUTO-INJECT 0.3 MG SYR IM STA (08:20)
--- NOTE | 2023-06-11 08:25 | Emergency Department Note ---
ED Visit Note Patient was admitted to the [facility] hospitalist service. However, while being held down in the emergency department she had notable desaturations down to the low 80s with a good waveform on high flow nasal cannula. She is a very addition to an OxyMask and her saturations were persistently hypoxic in the low to mid 80s range. On reassessment, the patient has diffuse wheezing. She denies feeling short of breath at this time. On review of the patient's chart, she was given dexamethasone, Benadryl, Pepcid, and subcu epi earlier this morning. Given patient's current desaturations and wheezing, will redose subcu epinephrine. Discussed case with the hospitalist service again to update them on change in status. They are coming to evaluate the patient at this time. .
--- NOTE | 2023-06-11 08:39 | History & Physical Report ---
Date of Service June 11, 2023 Assessment & Plan (1) Respiratory failure with hypoxia: Plan: This is a 58 y/o female with a history of COPD, lung cancer s/p resection, HTN, depression/anxiety, GERD, dyslipidemia, and other history as outlined below who presented to the ED today with dyspnea, cough, and fatigue x 2 days. She reports symptoms started two days ago after she had several [place] wine coolers, so she is concerned about a possible allergic reaction as she had a similar reaction to malt liquor previously. She has a history of underlying COPD and prior lung cancer with prior resection. On initial presentation in the ED, pt was found to be markedly hypoxic and required high flow oxygen. She was treated for presumed anaphylaxis with epinephrine, steroids, famotidine, and diphenhydramine. Initially O2 sat seemed to stabilize but then worsened again so ED physician gave another dose of epinephrine and ordered a nebulizer, after which pt noted improvement. CTA negative for PE but positive for pneumonia. Pt also complained of chest discomfort with elevated troponin though no EKG changes noted. - Admit to ICU due to respiratory failure requiring high flow oxygen, hyponatremia, chest discomfort with positive troponin - spoke with critical care attending, Dr. Kim, who will consult - Continue high flow oxygen but low threshold to trial of BiPAP - discussed with patient and she would be agreeable if indicated - IV ceftriaxone for pneumonia - multiple antibiotic allergies including fluoroquinolones, macrolides, tetracycline, and Augmentin - Continue IV steroids - Continue nebs - Serial troponin, repeat EKG in AM, ECHO, consult cardiology for additional recommendations - Consult nephrology for assistance with hyponatremia management - evidence of fluid overload on imaging. Check serum osmolality, urine osmolality, urine sodium (2) Pneumonia: (3) Acute hyponatremia: (4) Chest discomfort: (5) Elevated troponin: (6) Essential hypertension: (7) Dyslipidemia: (8) Pulmonary emphysema: Plan Continue other home medications as appropriate Pt seen and reviewed with attending physician, Dr. Pace. Plan of care discussed and as outlined above. Code Status: Full code DVT prophylaxis: Bubba Merino PA-C History of Present Illness Chief Complaint: trouble breathing, feeling tired Primary Care Provider: Saadia Alex PA-C This is a 58 y/o female with a history of COPD, lung cancer s/p resection, HTN, depression/anxiety, GERD, dyslipidemia, and other history as outlined below who presented to the ED today with dyspnea, cough, and fatigue x 2 days. Pt reports being in her usual state of health last week. On Sunday (three days ago), she drank a few [place] wine coolers with [facility] [place] okay initially but on Sunday, she developed shortness of breath and chest heaviness . She tried her inhaler and a nebulizer but felt like these made her worse. She slept all day Sunday, minimal solid food intake. Sunday evening, she felt a little better. Sunday (yesterday) she felt okay initially, was able to eat a small amount of soup. She did continue to push fluids as able. By Sunday evening, feeling worse again. Tried another neb but felt worse after with more chest heaviness and dyspnea. Overnight, felt like she was worsening so she came to the ED early this morning for evaluation. Found to be markedly hypoxic in triage with a Pox of 54% on room air. Placed on non-rebreather with improvement to the 90s. Has gradually been transitioned to high-flow via NC and then OxyMask. Received epinephrine, dexamethasone, diphenhydramine, and famotidine for probable allergic reaction to the wine coolers she drank before current symptoms started. Initially, seemed to stabilize. However, sats then dropped again to the mid 80s on 10L High Flow so a second dose of epinephrine was given and pt started on a DuoNeb with improvement of sats back to the low 90s. She notes ongoing dyspnea, increased work of breathing, chest tightness and heavy feeling. Over the weekend, she has also noted chills, sweats, nausea, vomiting, and a non-productive cough. She denies documented fever, hemoptysis, rash or hives. She reportedly had a similar reaction to drinking malt liquor several years ago. Allergies Allergy/AdvReac Type Severity Reaction Status Date / Time Bactrim Allergy Intermediate HIVES Verified 07/26/15 07:15 Sulfa (Sulfonamide Allergy Intermediate BACTRIM- Verified 08/01/21 10:17 Antibiotics) HIVES sulfamethoxazole Allergy Intermediate HIVES Verified 08/01/21 10:17 trimethoprim Allergy Intermediate HIVES Verified 08/01/21 10:17 erythromycin base Allergy Unknown Verified 08/01/21 10:17 metaxalone Allergy Unknown Verified 08/01/21 10:17 morphine Allergy Unknown . Verified 08/01/21 10:17 neomycin Allergy Unknown Verified 08/01/21 10:17 Quinolones Allergy Unknown Verified 08/01/21 10:17 tetracycline Allergy Unknown Verified 08/01/21 10:17 amoxicillin [From Augmentin] Allergy Verified 08/01/21 10:17 clavulanic acid Allergy Verified 08/01/21 10:17 [From Augmentin] umeclidinium Allergy Verified 08/01/21 10:17 [From Anoro Ellipta] vilanterol Allergy Verified 08/01/21 10:17 [From Anoro Ellipta] moxifloxacin AdvReac Unknown hives Verified 08/01/21 10:17 Home Medications Medication Instructions Recorded Confirmed Type albuterol sulfate 2.5 mg/3 mL 2.5 mg (3 mL) inhalation Q4H PRN 08/14/19 06/11/23 Rx (0.083 %) solution for nebulization shortness of breath or wheezing #180 mL aripiprazole 5 mg tablet (Abilify) 5 mg PO HS 12/03/19 06/11/23 History aspirin 81 mg tablet 81 mg PO DAILY 02/04/20 06/11/23 History cetirizine 10 mg tablet 10 mg PO DAILY 02/04/20 06/11/23 History clonazepam 0.5 mg tablet 0.5 mg PO BID PRN Anxiety 02/04/20 06/11/23 History amlodipine 10 mg tablet 10 mg PO DAILY 08/01/21 06/11/23 History losartan 50 mg tablet 50 mg PO BID 08/01/21 06/11/23 History albuterol sulfate 90 mcg/actuation 2 puff inhalation Q4H PRN 02/20/22 06/11/23 Rx aerosol inhaler (Ventolin HFA) shortness of breath ,coughing or wheezing #18 grams atorvastatin 20 mg tablet 20 mg PO DAILY 06/11/23 06/11/23 History carvedilol 25 mg tablet 25 mg PO BID 06/11/23 06/11/23 History furosemide 20 mg tablet 20 mg PO DAILY 06/11/23 06/11/23 History paroxetine HCl 40 mg tablet 40 mg PO DAILY 06/11/23 06/11/23 History Past Med/Surg History Medical History Allergic rhinitis Arthritis Bipolar disorder Breast fibroadenoma Dyslipidemia Essential hypertension GERD (gastroesophageal reflux disease) 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 History of temporomandibular joint disorder Lumbar stenosis (09/25/14) Malignant neoplasm of upper lobe, left bronchus or lung Pulmonary emphysema Pulmonary nodule Surgical History H/O breast surgery H/O splenectomy History of D&C History of lumbar surgery Family History Father Hypertension Mother Lung cancer Other Breast cancer COPD (chronic obstructive pulmonary disease) Diabetes Social History Smoking Status: Former smoker Smoking End Date: Quit 04/24/23; Hx Alcohol Use: Yes Hx Substance Use: No Communication Ability: Effective [employer] Required: No Beliefs That Will Affect Care: None marital status: Current Living Situation: Significant Other current occupational status: disabled Other Information That Helps Us Care for You: No Feels Safe at Home: Yes Safety Concerns: Feels Safe At This Time Assistive Devices: Denture - Lower and Glasses Review of Systems Review of Systems: All systems reviewed & are unremarkable except as noted in HPI & below Constitutional: + chills, + sweats, + fatigue and + anorexia Eyes: no diplopia Respiratory: + cough, + dyspnea and + wheezing Cardiovascular: no chest pain, no palpitations and no syncope Gastrointestinal: + nausea and + vomiting; no abdominal pain Integumentary: no rash and no urticaria Neurologic: + generalized weakness Physical Exam Constitutional: awake, alert, increased work of breathing but not in distress Eyes: + anicteric sclerae Neck: trachea midline Respiratory: + uses accessory muscles, + cough and + tachypneic Auscultation: + diminished lung sounds and + wheezes Cardiovascular: Rate/Rhythm: regular rhythm and + tachycardic Vessels: radial pulses present Gastrointestinal (Abdomen): Inspection/Auscultation: normal bowel sounds; abdomen not distended Percussion/Palpation: abdomen soft Musculoskeletal: Head/Neck/Chest: normocephalic, head atraumatic and neck supple Skin: no jaundice Neurologic: moves all extremities; no focal motor deficits and not confused Psychiatric: A+Ox3, euthymic affect Results & Data Results & Data Vital Signs (Past 12 Hours) Vital Signs Temp Pulse Pulse Resp BP BP Pulse Ox 06/11/23 07:45 84 22 91 06/11/23 07:44 175/87 H 06/11/23 07:44 84 26 H 92 06/11/23 07:42 88 27 H 91 06/11/23 07:00 80 21 94 06/11/23 07:00 159/78 H 06/11/23 07:43 83 20 175/87 H 92 06/11/23 06:45 75 24 173/87 H 92 06/11/23 06:30 77 22 156/87 H 93 06/11/23 06:15 90 22 169/89 H 91 06/11/23 06:00 77 20 159/88 H 93 06/11/23 05:54 82 22 163/93 H 96 06/11/23 05:36 99 H 24 188/114 H 98 06/11/23 06:04 97 H 24 94 06/11/23 05:50 91 H 22 97 06/11/23 05:54 54 L 06/11/23 05:35 98 H 06/11/23 05:28 36.7 C 112 H 40 H 191/88 H 54 L O2 Del Method O2 Flow Rate 06/11/23 07:45 High Flow Nasal Cannula 06/11/23 07:44 06/11/23 07:44 06/11/23 07:42 High Flow Nasal Cannula 06/11/23 07:00 High Flow Nasal Cannula 06/11/23 07:00 06/11/23 07:43 Oxymask 06/11/23 06:45 Nasal Cannula 06/11/23 06:30 Nebulizer 06/11/23 06:15 Nebulizer 06/11/23 06:00 Non-rebreather 06/11/23 05:54 Non-rebreather 06/11/23 05:36 Non-rebreather 06/11/23 06:04 Nasal Cannula 06/11/23 05:50 Non-rebreather 06/11/23 05:54 Room Air 06/11/23 05:35 06/11/23 05:28 Room Air Laboratory Results Laboratory Results - last 24 hr 06/11/23 06/11/23 06/11/23 05:40 05:40 05:40 WBC 17.56 H RBC 3.86 L Hgb 11.7 L Hct 31.7 L MCV 82.1 MCH 30.3 MCHC 36.9 H RDW Std Deviation 41.5 RDW Coeff of Shanna 14.2 Plt Count 197 MPV 10.8 Immature Gran % (Auto) 0.5 Neut % (Auto) 82.7 Lymph % (Auto) 10.7 [place] % (Auto) 5.9 Eos % (Auto) 0.0 Baso % (Auto) 0.2 Neut # (Auto) 14.52 H Lymph # (Auto) 1.88 [place] # (Auto) 1.04 H Eos # (Auto) 0.00 Baso # (Auto) 0.04 Immature Gran # (Auto) 0.08 D-Dimer 1610 H* Sodium 118 L* Potassium 4.0 Chloride 87 L Carbon Dioxide 23 Anion Gap 8 BUN 17 Creatinine 1.15 Est Cr Clr Drug Dosing 46.2 Est GFR ( Amer) 61.2 Est GFR (Non-Af Amer) 52.8 BUN/Creatinine Ratio 14.8 Glucose 148 H Lactate Calcium 8.4 L Magnesium 1.5 L Total Bilirubin 1.9 H AST 36 ALT 25 Alkaline Phosphatase 82 Troponin I High Sens 90.1 H* Total Protein 7.3 Albumin 4.3 Globulin 3.0 Albumin/Globulin Ratio 1.4 Procalcitonin Adenovirus (PCR) B. pertussis DNA (PCR) B.parapertussis DNA PCR C. pneumoniae DNA (PCR) Coronavirus OC43 (PCR) Coronavirus HKU1 (PCR) Coronavirus 229E (PCR) SARS-CoV-2 (PCR) Coronavirus NL63 (PCR) Human Metapneumovir PCR Influenza Type B (PCR) M. pneumoniae (PCR) Parainfluenza 1 (PCR) Parainfluenza 2 (PCR) Parainfluenza 3 (PCR) Parainfluenza 4 (PCR) RSV (PCR) Entero/Rhino (PCR) 06/11/23 06/11/23 06/11/23 05:40 06:22 Unknown WBC RBC Hgb Hct MCV MCH MCHC RDW Std Deviation RDW Coeff of Shanna Plt Count MPV Immature Gran % (Auto) Neut % (Auto) Lymph % (Auto) [place] % (Auto) Eos % (Auto) Baso % (Auto) Neut # (Auto) Lymph # (Auto) [place] # (Auto) Eos # (Auto) Baso # (Auto) Immature Gran # (Auto) D-Dimer Sodium Potassium Chloride Carbon Dioxide Anion Gap BUN Creatinine Est Cr Clr Drug Dosing Est GFR ( Amer) Est GFR (Non-Af Amer) BUN/Creatinine Ratio Glucose Lactate 1.0 Calcium Magnesium Total Bilirubin AST ALT Alkaline Phosphatase Troponin I High Sens Total Protein Albumin Globulin Albumin/Globulin Ratio Procalcitonin 0.29 Adenovirus (PCR) Pending B. pertussis DNA (PCR) Pending B.parapertussis DNA PCR Pending C. pneumoniae DNA (PCR) Pending Coronavirus OC43 (PCR) Pending Coronavirus HKU1 (PCR) Pending Coronavirus 229E (PCR) Pending SARS-CoV-2 (PCR) Pending Coronavirus NL63 (PCR) Pending Human Metapneumovir PCR Pending Influenza Type B (PCR) Pending M. pneumoniae (PCR) Pending Parainfluenza 1 (PCR) Pending Parainfluenza 2 (PCR) Pending Parainfluenza 3 (PCR) Pending Parainfluenza 4 (PCR) Pending RSV (PCR) Pending Entero/Rhino (PCR) Pending Diagnostic Findings Chest X-Ray 06/11/23 05:35 XR chest 1V portable CLINICAL HISTORY: Dyspnea. COMPARISON STUDY: Chest radiograph June 22, 2017. Chest CT November 18, 2019 and June 01, 2021. FINDINGS: There is no pneumothorax. Blunting of the left costophrenic angle is chronic. There is a suspected trace right pleural effusion. There is asymmetric interstitial thickening within the right lung. Right basilar airspace opacity is present. Postoperative findings within the left lung with volume loss are noted. A 2.8 x 1.1 cm elliptical left apical opacity is present. IMPRESSION: 1. Asymmetric interstitial thickening within the right lung. This favors asymmetric interstitial pulmonary edema. 2. Right basilar airspace opacity. Pneumonia/aspiration pneumonitis cannot be excluded. Radiographic follow-up to ensure resolution is recommended. 3. 2.8 x 1.1 cm left apical opacity. This may reflect scarring but should be assessed on follow-up imaging studies. ACT 112: Negative or not required by law. Electronically signed by: Kwame Weir M.D. 06/11/2023 6:50 AM Chest CTA 06/11/23 06:55 CHEST CTA for PULMONARY ARTERIES CT DOSE: 288.01 mGy.cm HISTORY: Shortness of breath. TECHNIQUE: Multiaxial CT images of the chest were performed following the intravenous administration of contrast to evaluate the pulmonary arteries. 3D/Maximal intensity projection images were also obtained. Sagittal and coronal reformations were also reviewed. A dose lowering technique was utilized adhering to the principles of ALARA. COMPARISON STUDY: Outside hospital chest CT 06/01/2021. FINDINGS: Severe calcified plaque at the distal thoracic aorta resulting in severe narrowing. This remains unchanged. Otherwise, there is a normal caliber thoracic aorta with no evidence for dissection. Questionable filling defect seen within the right lower lobe subsegmental pulmonary arteries on image 92 favors respiratory motion artifact. Otherwise, no additional filling defects within the pulmonary arteries to suggest a pulmonary embolus. Mild right hilar lymphadenopathy which has progressed. A dominant right hilar lymph node measures 11 mm in short axis diameter. No mediastinal or left hilar lymphadenopathy. There is a small right pleural effusion. There is a small pericardial effusion. The heart is mildly enlarged. Limited views the upper abdomen demonstrate a normal spleen and visualized adrenal glands. Retrograde opacification of contrast into the hepatic veins is noted. Normal caliber esophagus. Mild body wall edema. Prior left thoracotomy changes from a left upper lobectomy. Otherwise, no acute fractures identified within the chest. Consolidation within the right lower lobe posteriorly with additional patchy densities within the right lung and interlobular septal thickening. This favors a pneumonia. A superimposed asymmetric pulmonary edema could also have a similar appearance. There is progressive linear density within the left lung apex emphysema is noted. Punctate calcified granuloma within the left upper lung zone. IMPRESSION: 1. Questionable filling defect seen within the right middle lobe subsegmental pulmonary arteries favors motion artifact. Otherwise, no filling defects within the remaining pulmonary arteries to suggest a pulmonary embolus. 2. Consolidation within the right lower lobe posteriorly with additional smaller patchy airspace opacities within the right lung. This favors a pneumonia. There is also asymmetric interlobular septal thickening within the right lung with may represent superimposed asymmetric pulmonary edema. 3. Emphysema. 4. Small right pleural effusion and a small pericardial effusion. 5. The heart is enlarged. 6. Linear density within the left lung apex is progressed. Follow-up recommended to ensure stability/resolution. 7. Prior left upper lobectomy. 8. Mild right hilar lymphadenopathy this may be reactive. [address] follow-up recommended to ensure resolution. ACT 112: Positive. There are findings on this exam that require communication between the performing entity and the patient following Patient Test Result Information Act ([place] Act 112) guidelines. Electronically signed by: Bhavik Lowe M.D. 06/11/2023 7:51 AM Medications Administered Discontinued Medications Albuterol (Albut/Ipratrop 3mg/0.5mg Neb 3 Ml Vial) Confirm Administered Dose 3 ml .ROUTE .STK-MED ONE Stop: 06/11/23 05:35 Last Admin: 06/11/23 05:49 Dose: Not Given Documented By: BARRETT Albuterol (Albut/Ipratrop 3mg/0.5mg Neb 3 Ml Vial) 3 ml NEB NOW STA; Protocol Stop: 06/11/23 05:36 Last Admin: 06/11/23 05:49 Dose: 3 ml Documented By: BARRETT Albuterol (Albut/Ipratrop 3mg/0.5mg Neb 3 Ml Vial) 12 ml NEB ONE ONE; Protocol Stop: 06/11/23 05:51 Last Admin: 06/11/23 06:03 Dose: 12 ml Documented By: KRISTEL Albuterol (Albut/Ipratrop 3mg/0.5mg Neb 3 Ml Vial) Confirm Administered Dose 12 ml .ROUTE .STK-MED ONE Stop: 06/11/23 08:34 Last Admin: 06/11/23 08:36 Dose: 12 ml Documented By: GREG Dexamethasone (Dexamethasone Sod Inj 4 Mg/Ml Vial) 10 mg IV NOW STA Stop: 06/11/23 05:37 Last Admin: 06/11/23 05:49 Dose: 10 mg Documented By: BARRETT Dexamethasone (Dexamethasone Sod Inj 4 Mg/Ml Vial) Confirm Administered Dose 12 mg .ROUTE .STK-MED ONE Stop: 06/11/23 05:39 Last Admin: 06/11/23 05:49 Dose: Not Given Documented By: BARRETT Diphenhydramine HCl (Diphenhydramine 50 Mg/Ml Vial) 25 mg IV NOW STA Stop: 06/11/23 06:00 Last Admin: 06/11/23 06:05 Dose: 25 mg Documented By: BARRETT Epinephrine HCl (Epinephrine Inj 1 Mg/Ml Amp) 0.3 mg IM NOW STA Stop: 06/11/23 06:00 Last Admin: 06/11/23 06:06 Dose: 0.3 mg Documented By: BARRETT Epinephrine HCl (Epinephrine Adult Auto-Inject 0.3 Mg Syr) 0.3 mg IM NOW STA Stop: 06/11/23 08:21 Last Admin: 06/11/23 08:24 Dose: 0.3 mg Documented By: EDWIGE Magnesium Sulfate/Dextrose (Magnesium Sulfate / D5w) 1 gm in 100 mls @ 600 mls/hr IV Q10M MEDARDO Stop: 06/11/23 05:56 Last Infusion: 06/11/23 06:28 Dose: 0 mls/hr Documented By: Admin: 06/11/23 06:12 Dose: 600 mls/hr Documented By: Infusion: 06/11/23 06:00 Dose: 600 mls/hr Documented By: Admin: 06/11/23 05:49 Dose: 600 mls/hr Documented By: BARRETT Famotidine (Pepcid 20mg Iv Push) 20 mg in 5 mls @ 2.5 mls/min IV NOW STA Stop: 06/11/23 06:00 Last Admin: 06/11/23 06:06 Dose: 2.5 mls/min Documented By: BARRETT Sodium Chloride (Nss) 500 mls @ 999 mls/hr IV .Q31M ONE Stop: 06/11/23 07:25 Last Infusion: 06/11/23 08:28 Dose: 0 mls/hr Documented By: Admin: 06/11/23 07:43 Dose: 999 mls/hr Documented By: SARAH Ioversol (Ioversol 350 Mg 125ml Prefilled Syringe) 120 ml IV ONCE ONE Stop: 06/11/23 07:26 Last Admin: 06/11/23 07:26 Dose: 120 ml Documented By: JAELYN Ondansetron HCl (Ondansetron Inj 2 Mg/Ml 2 Ml Vial) Confirm Administered Dose 4 mg .ROUTE .STK-MED ONE Stop: 06/11/23 05:45 Last Admin: 06/11/23 05:49 Dose: 4 mg Documented By: BARRETT Code Status & VTE Plan VTE Prophylaxis Plan VTE Prophylaxis will be ordered: Yes Supervising Physician Co-Signing Physician Notes 58-year-old lady with PMH of COPD, lung cancer s/p resection, HTN, depression/anxiety, GERD, HLD, tobacco abuse [reports quitting tobacco 3 days ago] who reports drinking alcohol very occasionally and having reaction with malt liquor (wine cooler) in the past presented to the ED 06/11 with complaint of worsening shortness of breath and chest heaviness. Patient reports drinking [place] wine coolers around [facility] last Sunday evening, was okay on the Sunday evening, started having difficulty breathing throughout Sunday which improved by later evening but again was worsened with use of nebulization at home in the evening, She stayed through the Sunday when it was again worsened, finally decided to come today to the ED. In the ED patient was treated in the line of allergic reaction with epinephrine/Benadryl/solu Medrol. Patient needed BiPAP, was able to be transitioned to high flow nasal cannula at 15 L transiently and then again patient had worsening wheezing/shortness of breath needing another set of epinephrine. Patient was transferred to the ICU. Cardiology consulted for chest tightness/elevated troponin. Nephrology consulted for hyponatremia. Discussed with nephrology, free fluid restriction of 1800 mL a day, another dose of Lasix around 6 PM today. CTA chest with concerns of pneumonia. Will use Rocephin . Patient allergic to tetracyclines, levofloxacin, sulfa drugs, macrolides. BNP elevated. Trend troponin, antibiotic, scheduled steroid for COPD exacerbation, nebs, epinephrine as needed, Benadryl as needed, urine osmolality, serum osmolality, urine sodium, echo, replete electrolytes, cardiology/nephrology/ICU consult. Pt being managed in the ICU. at bedside, discussed plan of care and pt's home meds. GENERAL: Alert and oriented x3. NAD, on 15 L HFNC O2. Appears ill/sick HEENT: No pallor, no icterus. Pupils equal, round and reactive to light. Oral mucosa moist. NECK: No JVD, no neck masses. HEART: S1 and S2 heard. Regular rate and rhythm. No murmur, no gallop. RESPIRATORY SYSTEM: Normal AP diameter. + accessory muscle use. + b/l wheezing, b/l crackles. ABDOMEN: Soft, bowel sounds present, nontender, no distention. CENTRAL NERVOUS SYSTEM: No facial droop. Speech is clear. Obeys simple commands. Moves extremities. EXTREMITIES: No edema, no erythema seen. I have seen and examined the patient and have discussed the case with the blanka kasper above. I agree with the assessment and plan as stated. (2) Pneumonia Laterality: right Lung location: lower lobe of lung Pneumonia type: due to unspecified organism Qualified Code(s): J18.9 - Pneumonia, unspecified organism (8) Pulmonary emphysema Emphysema type: centrilobular Qualified Code(s): J43.2 - Centrilobular emphysema
[2023-06-11 09:06] LABS: Base Excess VBG -3.7 mEq/L; HCO3 VBG 23 mmol/L; Oxygen Saturation VBG 87.5 %; PCO2 VBG 45 mmHg (38-50); PO2 VBG 59 mmHg; pH VBG 7.31 (7.36-7.41)
[2023-06-11 09:16] LABS: iSTAT Arterial Blood Gas HCO3 25 meg/L (19-24); iSTAT Arterial Blood Gas pCO2 49 mmHg (35-46); iSTAT Arterial Blood Gas pH 7.31 (7.35-7.45); iSTAT Arterial Blood Gas pO2 54 mmHg (80-95); iSTAT Carbon Dioxide 26 mmol/L (24-31); iSTAT Hematocrit 37 % (37-47); iSTAT Hemoglobin 12.6 g/dl (12.0-16.0); iSTAT Potassium 3.9 mmol/L (3.3-5.0); iSTAT Sodium 118 mmol/L (135-144)
[2023-06-11 09:29] LABS: Adenovirus PCR Not Detected (NotDetected); Bordetella parapertussis PCR Not Detected (NotDetected); Bordetella pertussis PCR Not Detected (NotDetected); Chlamydia pneumoniae PCR Not Detected (NotDetected); Coronavirus 229E PCR Not Detected (NotDetected); Coronavirus CoV-2 (COVID19)PCR Not Detected (NotDetected); Coronavirus HKU1 PCR Not Detected (NotDetected); Coronavirus NL63 PCR Not Detected (NotDetected); Coronavirus OC43PCR Not Detected (NotDetected); Human Metapneumovirus PCR Not Detected (NotDetected); Influenza A PCR Not Detected (NotDetected); Influenza B PCR Not Detected (NotDetected); Mycoplasma pneumoniae PCR Not Detected (NotDetected); Parainfluenza Virus 1 PCR Not Detected (NotDetected); Parainfluenza Virus 2 PCR Not Detected (NotDetected); Parainfluenza Virus 3 PCR Not Detected (NotDetected); Parainfluenza Virus 4 PCR Not Detected (NotDetected); Respiratory Syncytial VirusPCR Not Detected (NotDetected); Rhinovirus/Enterovirus PCR Not Detected (NotDetected)
[2023-06-11 09:48] LABS: Allen Test Pos (Pos); Base Excess ABG -3.9 mEq/L (-9-1.8); HCO3 ABG 22 mmol/L (19-24); Oxygen Saturation ABG 94.4 % (90-95); PCO2 ABG 43 mmHg (35-46); PO2 ABG 71 mmHg (80-95); pH ABG 7.32 (7.35-7.45)
[2023-06-11 10:21] LABS: Albumin Level 4.1 gm/dl (3.4-5.0); Creatinine Clr Calc Pharmacy 53.1 ml/min; Est GFR (African American) 72.4 ml/min; Est GFR (Non-African American) 62.5 ml/min; Potassium 3.9 mmol/L (3.5-5.1); Troponin I High Sensitivity 84.7 pg/ml (0-14)
[2023-06-11] MEDS ORDERED: FUROSEMIDE 40 MG/4 ML VIAL IV ONE ×4 (10:25→22:45)
[2023-06-11] MEDS ORDERED: ACETAMINOPHEN 325 MG TAB PO PRN (10:36)
--- NOTE | 2023-06-11 10:45 | Nephrology Consultation ---
Date of Consultation June 11, 2023 Assessment & Plan (1) Hyponatremia: This is in the setting of respiratory failure. With her underlying COPD and very poor solid food nutrition and very very excessive fluid intake of almost 10 to 15 L/day she is at high risk of hyponatremia. She does have chronic mild hyponatremia as an outpatient. The current hyponatremia got really worse because of no solid food intake for the last 3 days and excessive fluid intake. We will also do other labs for further categorize. For now because of her significant respiratory findings and shortness of breath we will give Lasix 80 mg IV x1 Fluid restriction 1800 mL/day Check serum osmolarity urine osmolarity urine sodium. For now we will be managing her as a hypervolemic hyponatremia plus severe polydipsia. (2) Respiratory failure with hypoxia: Underlying COPD with superimposed CHF. Lasix IV plus underlying treatment for COPD. Case complexity high. Case was discussed with primary team as well as ICU attending. Total time spent 55 mins History of Present Illness Reason for Consultation: Hyponatremia Attending Physician: David Pace MD History of Present Illness 58/F with a history of borderline low serum sodium with the most recent sodium 133 on May 05, 2023 as an outpatient . In the last 2 years she has had serum sodium as low as 126 also . Other medical problems includes COPD/asthma, lung cancer s/p resection, HTN, depression/anxiety. She presented to the ED with dyspnea, cough, and fatigue x 2 days. Pt reports being in her usual state of health last week. On Sunday (three days ago), she drank a few [place] wine coolers with friends around a [facility]. [place] okay initially but on Sunday, she developed increasing shortness of breath and chest heaviness. She tried her usual COPD/asthma medications including inhalers and nebulizer but did not get better. She slept all day Sunday, minimal oral intake. Because of worsening symptoms she presented to the emergency department where she was found to be very hypoxic and has been placed on high flow oxygen. Even now she can barely talk and requiring a lot of oxygen. She is in the ICU. Patient was drinking massive amount of water at home. As per her as well as the patient herself she is drinking close to 10 to 15 L of fluid per day. She used to drink a lot of coffee before has recently switched over to water. She had wine cooler 3 days ago but normally she does not drink much alcohol. Review of system-----patient is very short of breath and can barely speak so history was obtained from the who is at the bedside. It appears prior to 3 days ago she was in relatively baseline health. But in the last few days she has had progressive worsening of her breathing symptoms increasing fatigue poor appetite. She may have had fever 2 days ago. No other sick contacts in [facility] household. Denies nausea vomiting lower extremity edema. total 12 system reviewed and unless stated otherwise was negative. Allergies Allergy/AdvReac Type Severity Reaction Status Date / Time Bactrim Allergy Intermediate HIVES Verified 07/26/15 07:15 Sulfa (Sulfonamide Allergy Intermediate BACTRIM- Verified 08/01/21 10:17 Antibiotics) HIVES sulfamethoxazole Allergy Intermediate HIVES Verified 08/01/21 10:17 trimethoprim Allergy Intermediate HIVES Verified 08/01/21 10:17 erythromycin base Allergy Unknown Verified 08/01/21 10:17 metaxalone Allergy Unknown Verified 08/01/21 10:17 morphine Allergy Unknown . Verified 08/01/21 10:17 neomycin Allergy Unknown Verified 08/01/21 10:17 Quinolones Allergy Unknown Verified 08/01/21 10:17 tetracycline Allergy Unknown Verified 08/01/21 10:17 amoxicillin [From Augmentin] Allergy Verified 08/01/21 10:17 clavulanic acid Allergy Verified 08/01/21 10:17 [From Augmentin] umeclidinium Allergy Verified 08/01/21 10:17 [From Anoro Ellipta] vilanterol Allergy Verified 08/01/21 10:17 [From Anoro Ellipta] moxifloxacin AdvReac Unknown hives Verified 08/01/21 10:17 Home Medications Medication Instructions Recorded Confirmed Type albuterol sulfate 2.5 mg/3 mL 2.5 mg (3 mL) inhalation Q4H PRN 08/14/19 06/11/23 Rx (0.083 %) solution for nebulization shortness of breath or wheezing #180 mL aripiprazole 5 mg tablet (Abilify) 5 mg PO DAILY 12/03/19 06/11/23 History ipratropium bromide 0.02 % 2.5 ml inhalation QID PRN 12/03/19 06/11/23 Rx solution for inhalation shortness of breath or wheezing #150 mL aspirin 81 mg tablet 81 mg PO DAILY 02/04/20 06/11/23 History cetirizine 10 mg tablet 10 mg PO DAILY 02/04/20 06/11/23 History clonazepam 0.5 mg tablet 0.5 mg PO BID PRN Anxiety 02/04/20 06/11/23 History ibuprofen 200 mg tablet 200 mg PO TID PRN Pain 02/04/20 06/11/23 History venlafaxine 150 mg 150 mg PO DAILY 02/04/20 08/01/21 History capsule,extended release 24 hr fluticasone furoate 200 1 inh inhalation DAILY #30 ea 08/10/20 06/11/23 Rx mcg/actuation blister powder for inhalation amlodipine 10 mg tablet 10 mg PO DAILY 08/01/21 06/11/23 History carvedilol 3.125 mg tablet 25 mg PO BID 08/01/21 06/11/23 History losartan 50 mg tablet 50 mg PO BID 08/01/21 06/11/23 History umeclidinium 62.5 mcg/actuation 1 inh inhalation DAILY #30 ea 12/16/21 06/11/23 Rx blister powder for inhalation albuterol sulfate 90 mcg/actuation 2 puff inhalation Q4H PRN 02/20/22 06/11/23 Rx aerosol inhaler (Ventolin HFA) shortness of breath ,coughing or wheezing #18 grams Patient History Medical History Allergic rhinitis Arthritis Bipolar disorder Breast fibroadenoma Dyslipidemia Essential hypertension GERD (gastroesophageal reflux disease) 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 Requiring high flow oxygen Constitutional: Thin built chronically ill-appearing Respiratory: Bilateral rhonchi and wheezing extensively Cardiovascular: Regular rate and rhythm tachycardia. No edema Gastrointestinal (Abdomen): Soft nontender Skin: No rashes noted Results & Data Vital Signs (Past 12 Hours) Vital Signs Temp Pulse Pulse Resp BP BP Pulse Ox 06/11/23 09:57 94 H 25 H 169/94 H 84 L 06/11/23 08:22 84 L 06/11/23 08:15 87 L 06/11/23 08:40 88 26 H 90 06/11/23 07:45 84 22 91 06/11/23 07:44 175/87 H 06/11/23 07:44 84 26 H 92 06/11/23 07:42 88 27 H 91 06/11/23 07:00 80 21 94 06/11/23 07:00 159/78 H 06/11/23 07:43 83 20 175/87 H 92 06/11/23 06:45 75 24 173/87 H 92 06/11/23 06:30 77 22 156/87 H 93 06/11/23 06:15 90 22 169/89 H 91 06/11/23 06:00 77 20 159/88 H 93 06/11/23 05:54 82 22 163/93 H 96 06/11/23 05:36 99 H 24 188/114 H 98 06/11/23 06:04 97 H 24 94 06/11/23 05:50 91 H 22 97 06/11/23 05:54 54 L 06/11/23 05:35 98 H 06/11/23 05:28 36.7 C 112 H 40 H 191/88 H 54 L O2 Del Method O2 Flow Rate 06/11/23 09:57 Oxymask 06/11/23 08:22 Oxymask, Nebulizer 06/11/23 08:15 Nasal Cannula, Oxymask 14 06/11/23 08:40 Aerosol Mask 06/11/23 07:45 High Flow Nasal Cannula 06/11/23 07:44 06/11/23 07:44 06/11/23 07:42 High Flow Nasal Cannula 06/11/23 07:00 High Flow Nasal Cannula 06/11/23 07:00 06/11/23 07:43 Oxymask 06/11/23 06:45 Nasal Cannula 06/11/23 06:30 Nebulizer 06/11/23 06:15 Nebulizer 06/11/23 06:00 Non-rebreather 06/11/23 05:54 Non-rebreather 06/11/23 05:36 Non-rebreather 06/11/23 06:04 Nasal Cannula 06/11/23 05:50 Non-rebreather 06/11/23 05:54 Room Air 06/11/23 05:35 06/11/23 05:28 Room Air Laboratory Results Sodium 118 on admission. Most recent outpatient was 133 as of May 05, 2023 Diagnostic Findings Chest x-ray findings reviewed shows chronic changes as well as some degree of pulmonary congestion/edema
--- NOTE | 2023-06-11 11:18 | Critical Care Progress Note ---
Date of Service June 11, 2023 Assessment & Plan (1) Respiratory failure with hypoxia: (2) Hyponatremia: (3) Essential hypertension: (4) Dyslipidemia: (5) Heterozygous factor V Leiden mutation: (6) Pulmonary emphysema: Plan Reason Critically Ill: Patient is a 58-year-old female with history of COPD, lung cancer status postresection, hypertension, depression/anxiety, GERD, dyslipidemia who presents to the ICU with respiratory failure Neuro - [facility] ICU: 0, NEGATIVE Sedation: None Analgesia: None Cardiac - Chest pain -Cardio consulted due to chest discomfort and elevated troponin. Will trend troponin. -Echo ordered, pending at this time. -Continue Norvasc 10 mg daily, Coreg 25 mg twice daily, and losartan 50 mg twice daily. -EKG on admission showed borderline criteria for anterior septal infarct, ST depressed in lateral leads, T wave inversion in lateral leads compared to previous EKG done back in 2013. Respiratory - Respiratory failure with hypoxia -Chest x-ray showed asymmetrical interstitial thickening within the right lung, right basilar airspace opacity, and 2.8 x 1.1 cm left apical opacity. -D-dimer elevated at 1600, CTA showed questionable filling defect but overall no suggestion of pulmonary embolism. -Chest CTA showed consolidation within the right lower lobe favoring pneumonia as well as asymmetric pulmonary edema. Also showed emphysema, small right pleural effusion, small pericardial effusion, enlarged heart, as well as mild right hilar lymphadenopathy -Viral BioFire negative -VBG showed a pH of 7.31. COPD Given DuoNeb in the ED. Possible allergic reaction? -Given epinephrine, dexamethasone, diphenhydramine, and famotidine for possible allergic reaction to wine coolers in the ED. -Allergic reaction unlikely at this time. GI - -N.p.o. at this time with fluid restriction of 1800 cc/day RENAL/LYTES - Hyponatremia -Sodium of 117 at time of admission. Previous sodium of 133 on 05/2023 as an outpatient. Patient was drinking a significant amount of water at home. -Nephrology consulted, fluid restriction at 1800 cc/day. Further work-up for causes of hyponatremia labs ordered. Checking serum osmolality, urine osmolarity, and urine sodium -Leading diagnosis is hypervolemic hyponatremia with severe polydipsia. -We will reevaluate after 80 mg IV Lasix. BMP this afternoon Hypomagnesia -Magnesium 1.5 at time of admission. 2 bags given. We will monitor in morning labs. - -No concerns at this time. ENDO - -Follow ICU hyperglycemic protocols HEME - -Stable H&H -Will monitor for any drops, not currently on any DVT prophylaxis at this time ID - Pneumonia -Leukocytosis at 17 at time of admission. -Blood cultures pending -Given 1 mg ceftriaxone in the ED. -Viral BioFire negative. MRSA swab pending. -Monitor fever curve. LINES/IV ACCESS - PIVs intact. DVT PROPHYLAXIS - None at this time. We will consider once stable. Thank you for allowing us to be part of this patient's care. Please refer to Dr. Kim''s documentation for any further recommendations. Admission and Anticipated Discharge Date Admission Date: June 11, 2023 Supervising Physician Co-Signing Physician Notes Dr. Lopez was resident physician during care of patient. I separately evaluated patient for cardona portions of the history and the exam. I was present during the critical portion of medical decision making, and I discussed the case with the resident. I generally agree with the findings and plan. Patient clinically showing signs of reactive airway disease and ongoing tobacco abuse in the setting of prior lung malignancy status post lobectomy. Patient duran s an obvious con commitment pneumonia/infiltrative process. High-sensitivity troponins mildly elevated however do not believe that this is indicative of active obstructive cardiac ischemia, may be aspects of type II ischemia especially with pre-existing lung disease and VQ mismatch from the underlying infiltrative process. I doubt this represents a allergic process no additional epinephrine. Continue Rocephin, patient already received in emergency department. This could be considered a severe pneumonia, however the patient will be on IV Solu-Medrol for reactive airway disease exacerbation which I believe is more prudent than treating with hydrocortisone for severe pneumonia. Scheduled nebulizers Repeat BMPs every 6 hours follow sodiums carefully. Clinical and laboratory picture most consistent with hypervolemic hyponatremia, agree with fluid restriction. Elevated blood pressure, likely reactive to underlying disease process we will continue to monitor at this time. I have personally spent 45 minutes of critical care time in the direct management of this patient. This is a life/limb threatening event. This includes time spent evaluating patient, direct bedside care, chart review, placing orders, interpretation of diagnostic studies, discussion with consultants, patient, and/or family members regarding treatment decisions, as well as other required patient management activities. This time is exclusive of all separately billable procedures, and teaching time and separate from and in addition to any other critical care service time. Subjective Patient seen bedside this morning. Has no new issues recommended at this time. States that her breathing feels better since getting an IV push of Lasix this morning. Review of Systems Review of Systems: All systems reviewed & are unremarkable except as noted in Subjective Physical Exam Constitutional: + acute distress and + ill appearing On high flow oxygen Neck: trachea midline, no thyromegaly Respiratory: Auscultation: + rhonchi (Throughout) and + wheezes (Throughout) Cardiovascular: RRR, no murmur, no edema Gastrointestinal (Abdomen): normal bowel sounds, soft, nontender, no hepatosplenomegaly Results & Data Results & Data Vital Signs (Past 12 Hours) Vital Signs Temp Pulse Pulse Resp BP BP Pulse Ox 06/11/23 10:54 06/11/23 10:37 92 H 18 167/90 H 91 06/11/23 09:57 94 H 25 H 169/94 H 84 L 06/11/23 08:22 84 L 06/11/23 08:15 87 L 06/11/23 08:40 88 26 H 90 06/11/23 07:45 84 22 91 06/11/23 07:44 175/87 H 06/11/23 07:44 84 26 H 92 06/11/23 07:42 88 27 H 91 06/11/23 07:00 80 21 94 06/11/23 07:00 159/78 H 06/11/23 07:43 83 20 175/87 H 92 06/11/23 06:45 75 24 173/87 H 92 06/11/23 06:30 77 22 156/87 H 93 06/11/23 06:15 90 22 169/89 H 91 06/11/23 06:00 77 20 159/88 H 93 06/11/23 05:54 82 22 163/93 H 96 06/11/23 05:36 99 H 24 188/114 H 98 06/11/23 06:04 97 H 24 94 06/11/23 05:50 91 H 22 97 06/11/23 05:54 54 L 06/11/23 05:35 98 H 06/11/23 05:28 36.7 C 112 H 40 H 191/88 H 54 L O2 Del Method O2 Flow Rate FiO2 06/11/23 10:54 Aerosol Mask 50 06/11/23 10:37 Aerosol Mask 50 06/11/23 09:57 Oxymask 12 06/11/23 08:22 Oxymask, Nebulizer 15 06/11/23 08:15 Nasal Cannula, Oxymask 14 06/11/23 08:40 Aerosol Mask 10 06/11/23 07:45 High Flow Nasal Cannula 12 06/11/23 07:44 06/11/23 07:44 06/11/23 07:42 High Flow Nasal Cannula 12 06/11/23 07:00 High Flow Nasal Cannula 12 06/11/23 07:00 06/11/23 07:43 Oxymask 12 06/11/23 06:45 Nasal Cannula 12 06/11/23 06:30 Nebulizer 06/11/23 06:15 Nebulizer 06/11/23 06:00 Non-rebreather 06/11/23 05:54 Non-rebreather 06/11/23 05:36 Non-rebreather 06/11/23 06:04 Nasal Cannula 15 06/11/23 05:50 Non-rebreather 06/11/23 05:54 Room Air 06/11/23 05:35 06/11/23 05:28 Room Air Laboratory Results 06/11/23 05:40 06/11/23 09:31 (6) Pulmonary emphysema Emphysema type: centrilobular Qualified Code(s): J43.2 - Centrilobular emphysema
[2023-06-11 12:09] LABS: Appearance Urine Clear (Clear); Bacteria Urine Automated Negative (Negative); Bilirubin Urine Negative (Negative); Blood Urine Trace (Negative); Color Urine Yellow; Glucose Urine UA Negative (Negative); Ketones Urine Negative (Negative); Leukocyte Esterase Urine 1+ (Negative); Nitrite Urine Negative (Negative); Protein Urine Negative (Negative); RBC Urine Automated 0-4 /hpf (0-4); Specific Gravity Urine 1.014 (1.000-1.030); Urobilinogen Urine Negative (Negative)
--- NOTE | 2023-06-11 12:10 | Electrocardiogram Report ---
Test Reason : Blood Pressure : / mmHG Vent. Rate : 097 BPM Atrial Rate : 097 BPM P-R Int : 168 ms QRS Dur : 080 ms QT Int : 350 ms P-R-T Axes : 078 -20 101 degrees QTc Int : 444 ms Normal sinus rhythm Possible Left atrial enlargement Possible Anteroseptal infarct , age undetermined Nonspecific ST and T wave abnormality Abnormal ECG When compared with ECG of 09-SEP-2014 10:39, Borderline criteria for Anteroseptal infarct are now Present ST now depressed in Lateral leads T wave inversion now evident in Lateral leads Confirmed by Jacoby Rossi ([id number]) on 06/11/2023 12:10:06 PM Referred By: Confirmed By:Jacoby Rossi
--- NOTE | 2023-06-11 14:11 | Cardiology Consultation ---
Date of Consultation June 11, 2023 Assessment & Plan (1) Elevated troponin: (2) Chest discomfort: (3) Respiratory failure with hypoxia: (4) Hyponatremia: (5) Essential hypertension: (6) Dyslipidemia: (7) Pulmonary emphysema: Plan 58 year old female with past tobacco abuse, pulmonary emphysema and adenocarcinoma of the lung status post left upper lobectomy admitted to [facility] with acute hypoxic respiratory failure, right sided pneumonia, and marked hyponatremia. Cardiology consultation requested due to chest pain and elevated troponin. Small pericardial effusion noted on the admission Chest CTA. Chest discomfort appears atypical of an acute coronary event (right sided, below ribs, at rest). Patient without classic pericarditis symptoms, duration of pericardial effusion unknown. Initial EKG without ST segment elevation. High-sensitivity troponin I mildly elevated (90.1 -> 84.7 pg/mL), likely representing demand ischemia in the setting of significant acute hypoxic respiratory failure and in the setting of two doses of IM epinephrine in the ER due to concern for a possible allergic reaction to alcohol consumed three days prior. RECOMMENDATIONS: Treatment of the acute hypoxic respiratory failure as per hospitalist/critical care. Repeat electrocardiogram Check serial high sensitivity Troponin's Refer for resting echocardiography Further recommendations pending the above, evaluation by Dr. Garay, patient's ongoing hospitalization. Supervising Physician Co-Signing Physician Notes 58-year-old female presents to the emergency department with shortness of breath. Imaging demonstrating right lower lobe infiltrate. Cardiology consultation requested due to elevated troponin. Patient adamantly denies any substernal chest discomfort or heaviness. Describes an epigastric and right upper quadrant discomfort which is intermittent and not related to exertion. Treated for possible allergic reaction in the ER. Currently resting comfortably. PE: Hypoxic within SaO2 of 91% on a 50% aerosol mask. GEN: NAD, AAOx3. Heart: Regular rhythm, normal S1-S2. No murmur. Lungs: Positive crackles with diminished lung sounds at the right base. No wheeze. Ext: no edema. A/P: Agree with above PA-C history, physical exam, assessment and plan. Echocardiogram without regional wall motion abnormality. There is a small circumferential pericardial effusion without hemodynamic significance. No significant valvular pathology. No regional wall motion abnormality suggests ischemic heart disease. Repeat limited echocardiogram in 5 to 7 days for reevaluation of small pericardial effusion which I suspect is secondary to underlying pulmonary infectious process. Her mildly elevated high-sensitivity troponin is due to hypoxic respiratory failure in the setting of acute pneumon ia. Further treatment as per internal medicine/critical care. History of Present Illness Reason for Consultation: Elevated troponin, chest discomfort Requesting Physician: Yulia Merino Attending Physician: Dr. David Pace MD History of Present Illness Ms. Melissa Carpenter is a 58 year old female who was in her usual state until Sunday when she began to feel ill with nonproductive cough with difficulty expectorating, chest congestion, acute dyspnea, fevers, diaphoresis, nausea, and vomiting. At home patient tried her inhaler as well as nebulizer without significant improvement. Throughout the weekend her symptoms seem to wax and wane. Limited oral intake noted. Sunday evening she began to feel worse again and presented to the ER where she was notably significantly hypoxic, SPO2 reported to be 54% on room air. Patient was promptly treated with supplemental oxygen, DuoNeb, IV steroids, and IV magnesium. Due to concern for possible allergic reaction to liquor consumed Sunday evening while sitting around a campfire, patient was treated with IM epinephrine x2, IV Benadryl, and IV Pepcid in the ER Chest x-ray on presentation revealed asymmetric interstitial thickening within the right lung, right basilar airspace opacity, and a 2.8 x 1.1 cm left apical opacity Chest CTA revealed consolidation within the right lung favoring pneumonia, emphysema, possible pulmonary edema, small right pleural effusion, small pericardial effusion, progressive linear density within the left lung apex, prior left upper lobectomy, and mild right hilar lymphadenopathy EKG on presentation revealed normal sinus rhythm at 97 bpm with left atrial enlargement, possible old anteroseptal infarct, diffuse STT wave abnormality. QTc 444 ms. High-sensitivity troponin I was elevated at 90.1 pg/ml on presentation then 84.7 pg/mL. Patient has been evaluated by nephrology for the marked hyponatremia (117) to be secondary to poor solid food intake as well as excessive fluid intake, receiving 80 mg of IV Lasix with perhaps some improvement in dyspnea following IV diuresis When asked regarding chest pain patient notes discomfort below the rib cage on t he right side. No chest pain or discomfort. No palpitations. No orthopnea or PND. No lower extremity peripheral edema. No abrupt weight change. No near syncope or syncope. No hemoptysis. No melena or hematochezia. No dysuria or hematuria. Past Medical and Surgical History Emphysema Lung cancer, adenocarcinoma, status post left upper lobe resection History of difficult to control hypertension Dyslipidemia Abdominal atherosclerosis Gastroesophageal reflux Depression and anxiety Breast biopsy, benign Status post D&C Lumbar spine fusion Family History: Mother is alive with breast and lung cancer. Father committed suicide. Social History: Reformed smoker, 40 pack years. Social alcohol. No illegal drug use. Allergies Allergy/AdvReac Type Severity Reaction Status Date / Time Bactrim Allergy Intermediate HIVES Verified 07/26/15 07:15 Sulfa (Sulfonamide Allergy Intermediate BACTRIM- Verified 08/01/21 10:17 Antibiotics) HIVES sulfamethoxazole Allergy Intermediate HIVES Verified 08/01/21 10:17 trimethoprim Allergy Intermediate HIVES Verified 08/01/21 10:17 erythromycin base Allergy Unknown Verified 08/01/21 10:17 metaxalone Allergy Unknown Verified 08/01/21 10:17 morphine Allergy Unknown . Verified 08/01/21 10:17 neomycin Allergy Unknown Verified 08/01/21 10:17 Quinolones Allergy Unknown Verified 08/01/21 10:17 tetracycline Allergy Unknown Verified 08/01/21 10:17 amoxicillin [From Augmentin] Allergy Verified 08/01/21 10:17 clavulanic acid Allergy Verified 08/01/21 10:17 [From Augmentin] umeclidinium Allergy Verified 08/01/21 10:17 [From Anoro Ellipta] vilanterol Allergy Verified 08/01/21 10:17 [From Anoro Ellipta] moxifloxacin AdvReac Unknown hives Verified 08/01/21 10:17 Home Medications Medication Instructions Recorded Confirmed Type albuterol sulfate 2.5 mg/3 mL 2.5 mg (3 mL) inhalation Q4H PRN 08/14/19 06/11/23 Rx (0.083 %) solution for nebulization shortness of breath or wheezing #180 mL aripiprazole 5 mg tablet (Abilify) 5 mg PO HS 12/03/19 06/11/23 History aspirin 81 mg tablet 81 mg PO DAILY 02/04/20 06/11/23 History cetirizine 10 mg tablet 10 mg PO DAILY 02/04/20 06/11/23 History clonazepam 0.5 mg tablet 0.5 mg PO BID PRN Anxiety 02/04/20 06/11/23 History amlodipine 10 mg tablet 10 mg PO DAILY 08/01/21 06/11/23 History losartan 50 mg tablet 50 mg PO BID 08/01/21 06/11/23 History albuterol sulfate 90 mcg/actuation 2 puff inhalation Q4H PRN 02/20/22 06/11/23 Rx aerosol inhaler (Ventolin HFA) shortness of breath ,coughing or wheezing #18 grams atorvastatin 20 mg tablet 20 mg PO DAILY 06/11/23 06/11/23 History carvedilol 25 mg tablet 25 mg PO BID 06/11/23 06/11/23 History furosemide 20 mg tablet 20 mg PO DAILY 06/11/23 06/11/23 History paroxetine HCl 40 mg tablet 40 mg PO DAILY 06/11/23 06/11/23 History Patient History Medical History Allergic rhinitis Arthritis Bipolar disorder Breast fibroadenoma Dyslipidemia Essential hypertension GERD (gastroesophageal reflux disease) 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 History of temporomandibular joint disorder Lumbar stenosis (09/25/14) Malignant neoplasm of upper lobe, left bronchus or lung Pulmonary emphysema Pulmonary nodule Surgical History H/O breast surgery H/O splenectomy History of D&C History of lumbar surgery Family History Father Hypertension Mother Lung cancer Other Breast cancer COPD (chronic obstructive pulmonary disease) Diabetes Social History Smoking Status: Former smoker Smoking End Date: Quit 04/24/23; Hx Alcohol Use: Yes Hx Substance Use: No Communication Ability: Effective Window Draper Required: No Beliefs That Will Affect Care: None marital status: Current Living Situation: Significant Other current occupational status: disabled Other Information That Helps Us Care for You: No Feels Safe at Home: Yes Safety Concerns: Feels Safe At This Time Assistive Devices: Denture - Lower and Glasses Review of Systems Review of Systems: Complete review of systems is otherwise as stated above, negative, noncontributory. Physical Exam Physical Exam: General: A&Ox3. NAD. HENT: Normocephalic. Atraumatic. Eyes: PER. Conjunctiva pink, sclera clear. Neck: No JVD. Heart: Regular at 86 bpm. No murmur. No rub. Lungs: Decreased. Diminished. Wheezing and rhonchi more so on the right. Abdomen: +BS. Soft. Nontender. No masses or organomegaly. Extremities: No clubbing, cyanosis, or edema. Limited neurological examination is without focal deficits. Pulses: radial=2/4, posterior tibial=1/4. Results & Data Vital Signs (Past 12 Hours) Vital Signs Temp Pulse Pulse Resp BP BP Pulse Ox 06/11/23 13:00 82 18 93 06/11/23 12:00 86 26 H 95 06/11/23 12:00 162/77 H 06/11/23 11:00 87 21 91 06/11/23 11:00 164/84 H 06/11/23 10:12 95 H 25 H 95 06/11/23 09:55 169/94 H 06/11/23 09:55 86 L 06/11/23 09:00 92 H 26 H 91 06/11/23 08:00 85 26 H 88 L 06/11/23 11:36 94 H 06/11/23 10:54 06/11/23 10:37 92 H 18 167/90 H 91 06/11/23 09:57 94 H 25 H 169/94 H 84 L 06/11/23 08:22 84 L 06/11/23 08:15 87 L 06/11/23 08:40 88 26 H 90 06/11/23 07:45 84 22 91 06/11/23 07:44 175/87 H 06/11/23 07:44 84 26 H 92 06/11/23 07:42 88 27 H 91 06/11/23 07:00 80 21 94 06/11/23 07:00 159/78 H 06/11/23 07:43 83 20 175/87 H 92 06/11/23 06:45 75 24 173/87 H 92 06/11/23 06:30 77 22 156/87 H 93 06/11/23 06:15 90 22 169/89 H 91 06/11/23 06:00 77 20 159/88 H 93 06/11/23 05:54 82 22 163/93 H 96 06/11/23 05:36 99 H 24 188/114 H 98 06/11/23 06:04 97 H 24 94 06/11/23 05:50 91 H 22 97 06/11/23 05:54 54 L 06/11/23 05:35 98 H 06/11/23 05:28 36.7 C 112 H 40 H 191/88 H 54 L O2 Del Method O2 Flow Rate FiO2 06/11/23 13:00 06/11/23 12:00 06/11/23 12:00 06/11/23 11:00 06/11/23 11:00 06/11/23 10:12 06/11/23 09:55 06/11/23 09:55 06/11/23 09:00 06/11/23 08:00 06/11/23 11:36 06/11/23 10:54 Aerosol Mask 50 06/11/23 10:37 Aerosol Mask 50 06/11/23 09:57 Oxymask 12 06/11/23 08:22 Oxymask, Nebulizer 15 06/11/23 08:15 Nasal Cannula, Oxymask 14 06/11/23 08:40 Aerosol Mask 10 06/11/23 07:45 High Flow Nasal Cannula 12 06/11/23 07:44 06/11/23 07:44 06/11/23 07:42 High Flow Nasal Cannula 12 06/11/23 07:00 High Flow Nasal Cannula 12 06/11/23 07:00 06/11/23 07:43 Oxymask 12 06/11/23 06:45 Nasal Cannula 12 06/11/23 06:30 Nebulizer 06/11/23 06:15 Nebulizer 06/11/23 06:00 Non-rebreather 06/11/23 05:54 Non-rebreather 06/11/23 05:36 Non-rebreather 06/11/23 06:04 Nasal Cannula 15 06/11/23 05:50 Non-rebreather 06/11/23 05:54 Room Air 06/11/23 05:35 06/11/23 05:28 Room Air Laboratory Results Cardiac Enzymes 06/11/23 06/11/23 06/11/23 Range/Units 05:40 09:31 09:56 AST 36 (13-39) U/L Troponin I High Sens 90.1 H* 84.7 H* (0-14) pg/ml B-Natriuretic Peptide 2238 H (0-100) pg/ml Coagulation 06/11/23 Range/Units 09:56 B-Natriuretic Peptide 2238 H (0-100) pg/ml CBC 06/11/23 Range/Units 05:40 WBC 17.56 H (4.8-10.8) K/ul RBC 3.86 L (4.20-5.40) M/uL Hgb 11.7 L (12.0-16.0) g/dl Hct 31.7 L (37.0-47.0) % Plt Count 197 (130-400) K/uL Neut # (Auto) 14.52 H (1.40-6.50) K/uL Lymph # (Auto) 1.88 (1.20-3.40) K/uL [place] # (Auto) 1.04 H (0.11-0.59) K/uL Eos # (Auto) 0.00 (0.00-0.50) K/uL Baso # (Auto) 0.04 (0.00-0.20) K/uL Comprehensive Metabolic Panel 06/11/23 06/11/23 Range/Units 05:40 09:31 Sodium 118 L* 117 L* (136-145) mmol/L Potassium 4.0 3.9 (3.5-5.1) mmol/L Chloride 87 L 88 L (98-107) mmol/L Carbon Dioxide 23 22 (21-32) mmol/L BUN 17 16 (6-23) mg/dl Creatinine 1.15 1.00 (0.6-1.2) mg/dl Glucose 148 H 129 H (70-99(Fasting)) mg/dl Calcium 8.4 L 8.0 L (8.6-10.3) mg/dl AST 36 (13-39) U/L ALT 25 (7-52) U/L Alkaline Phosphatase 82 (34-104) U/L Total Protein 7.3 (6.0-8.3) gm/dl Albumin 4.3 4.1 (3.4-5.0) gm/dl Intake and Output 06/10/23 06/11/23 06/11/23 22:59 06:59 14:59 Intake Total 200 / 200 600 / 600 Output Total 1150 / 1150 Balance 200 / 200 -550 / -550 Intake: IV 200 / 200 500 / 500 Magnesium Sulfate / D5w 1 gm In 200 / 200 100 ml @ 600 mls/hr IV Q10M MEDARDO Rx#:[id number] Sodium Chloride 0.9% 500 ml @ 500 / 500 999 mls/hr IV .Q31M ONE Rx#: [id number] Oral 100 / 100 Output: Urine 1150 / 1150 Other: Weight 60.3 kg 60.3 kg Weight Measurement Method Built in [facility] Built in [facility] Patient Weight 06/12/23 06:59 Weight 60.3 kg (7) Pulmonary emphysema Emphysema type: centrilobular Qualified Code(s): J43.2 - Centrilobular emphysema
--- NOTE | 2023-06-11 15:23 | Billing Data ---
Date of Service June 11, 2023 Coding Level of Care Code 59267 CRITICAL CARE 1ST 30-74M Time Spent (min) 45
[2023-06-11 15:24] LABS: BUN Creatinine Ratio 15.4 (10-20); Calcium 8.2 mg/dl (8.6-10.3); Est GFR (African American) 69.1 ml/min; Est GFR (Non-African American) 59.6 ml/min; Potassium 3.9 mmol/L (3.5-5.1)
[2023-06-11 15:44] LABS: Troponin I High Sensitivity 78.9 pg/ml (0-14)
[2023-06-11] MEDS: LOSARTAN POTASSIUM 50 MG TAB PO SCH (15:45)
[2023-06-11] MEDS: carvediloL 25 MG TAB PO SCH (15:45)
[2023-06-11] MEDS: ARIPiprazole 5 MG TAB PO SCH (15:45)
[2023-06-11] MEDS: cefTRIAXone SODIUM 1,000 MG in DEXTROSE 5% 50 ML IV SCH (15:55)
[2023-06-11 15:59] LABS: Thyroid Stimulating Hormone 0.292 uIu/ml (0.300-4.500)
[2023-06-11] MEDS: methylPREDNISolone 30 MG in SYRINGE 0 ML IV SCH ×2 (16:17→22:50)
[2023-06-11 16:37] LABS: T4 Free Thyroxine 1.24 ng/dl (0.61-1.60)
[2023-06-11 19:53] LABS: BUN Creatinine Ratio 13.8 (10-20); Calcium 8.4 mg/dl (8.6-10.3); Creatinine Clr Calc Pharmacy 45.8 ml/min; Est GFR (African American) 60.5 ml/min; Est GFR (Non-African American) 52.2 ml/min
[2023-06-11] MEDS: ALBUT/IPRATROP 3MG/0.5MG NEB 3 ML VIAL NEB PRN ×2 (20:44→23:13)
[2023-06-11 22:33] LABS: iSTAT Arterial Blood Gas HCO3 28 meg/L (19-24); iSTAT Arterial Blood Gas pCO2 43 mmHg (35-46); iSTAT Arterial Blood Gas pH 7.41 (7.35-7.45); iSTAT Arterial Blood Gas pO2 62 mmHg (80-95); iSTAT Carbon Dioxide 29 mmol/L (24-31); iSTAT Hematocrit 30 % (37-47); iSTAT Hemoglobin 10.2 g/dl (12.0-16.0); iSTAT Sodium 124 mmol/L (135-144)
[2023-06-11] MEDS: clonazePAM 0.5 MG TAB PO PRN (23:01)
[2023-06-12 01:53] LABS: BUN Creatinine Ratio 18.5 (10-20); Calcium 8.1 mg/dl (8.6-10.3); Creatinine Clr Calc Pharmacy 44.6 ml/min; Est GFR (African American) 58.7 ml/min; Est GFR (Non-African American) 50.6 ml/min; Potassium 3.9 mmol/L (3.5-5.1)
[2023-06-12] MEDS: ALBUT/IPRATROP 3MG/0.5MG NEB 3 ML VIAL NEB PRN ×4 (01:55→20:08)
[2023-06-12 05:53] LABS: Hematocrit (blood only) 27.4 % (37.0-47.0); Hemoglobin 10.1 g/dl (12.0-16.0); Mean Corpuscular Hgb Conc 36.9 g/dL (32.0-36.0); Mean Corpuscular Volume 81.3 fL (80.0-100.0); Mean Platelet Volume 10.8 fL (9.4-12.4); Platelet Count 145 K/uL (130-400); RDW Coefficient of Variation 14.1 % (11.5-14.5); RDW Standard Deviation 41.4 fL (36.4-46.3); Red Blood Count 3.37 M/uL (4.20-5.40); White Blood Count 16.49 K/ul (4.8-10.8)
[2023-06-12 06:07] LABS: BUN Creatinine Ratio 20.2 (10-20); Calcium 8.3 mg/dl (8.6-10.3); Creatinine Clr Calc Pharmacy 48.7 ml/min; Est GFR (African American) 65.3 ml/min; Est GFR (Non-African American) 56.3 ml/min
[2023-06-12 06:20] LABS: Basophils # (auto) 0.01 K/uL (0.00-0.20); Basophils % (auto) 0.1 %; Immature Granulocytes # (auto) 0.06 K/uL (0.01-0.20); Immature Granulocytes % (auto) 0.4 %; Monocytes # (auto) 0.35 K/uL (0.11-0.59); Monocytes % (auto) 2.1 %; Neutrophils # (auto) 15.57 K/uL (1.40-6.50); Neutrophils % (auto) 94.4 %
--- NOTE | 2023-06-12 07:03 | XRay Report ---
XR chest 1V portable CLINICAL HISTORY: Respiratory failure. COMPARISON STUDY: Chest radiograph and chest CT June 11, 2023. FINDINGS: Postoperative findings within the left lung with volume loss are again noted. There is no p neumothorax. Small bilateral pleural effusions have progressed. Asymmetric interstitial thickening an d right lung airspace opacities persist. Cardiomediastinal silhouette is stable. IMPRESSION: 1. Persistent asymmetric interstitial thickening within the right lung. This favors pulmonary edema. 2. No significant change in right basilar opacity. This may reflect superimposed pneumonia. 3. Increase in small bilateral pleural effusions. ACT 112: Negative or not required by law. Electronically signed by: Kwame Weir M.D. 06/12/2023 7:02 AM
[2023-06-12] MEDS: PARoxetine HCL 20 MG TAB PO SCH (08:06)
[2023-06-12] MEDS: amLODIPine BESYLATE 5 MG TAB PO SCH (08:06)
[2023-06-12] MEDS: methylPREDNISolone 30 MG in SYRINGE 0 ML IV SCH ×2 (08:06→15:36)
[2023-06-12] MEDS: ATORVASTATIN 20 MG TAB PO SCH (08:07)
[2023-06-12] MEDS: LOSARTAN POTASSIUM 50 MG TAB PO SCH ×2 (08:07→20:01)
[2023-06-12] MEDS: CETIRIZINE HCL 10 MG TABLET PO SCH (08:07)
[2023-06-12] MEDS: carvediloL 25 MG TAB PO SCH ×2 (08:07→17:20)
[2023-06-12 08:40] LABS: BUN Creatinine Ratio 20.4 (10-20); Calcium 8.2 mg/dl (8.6-10.3); Est GFR (African American) 62.5 ml/min; Est GFR (Non-African American) 53.9 ml/min
--- NOTE | 2023-06-12 08:47 | Critical Care Progress Note ---
Date of Service June 12, 2023 Assessment & Plan (1) Respiratory failure with hypoxia: (2) Hyponatremia: (3) Essential hypertension: (4) Dyslipidemia: (5) Heterozygous factor V Leiden mutation: (6) Pulmonary emphysema: Plan Reason Critically Ill: Patient is a 58-year-old female with history of COPD, lung cancer status postresection, hypertension, depression/anxiety, GERD, dyslipidemia who presents to the ICU with respiratory failure Neuro - [facility] ICU: 0, NEGATIVE Sedation: None Analgesia: None Cardiac - Chest pain -Cardio consulted due to chest discomfort and elevated troponin. Troponin peaked at 90 on 06/11 -Echo showed an EF 50-55%, mild mitral regurgitation, trace tricuspid regurgitation no signs of pulmonary hypertension. Small pericardial effusion adjacent to the posterior lateral wall, no evidence of cardiac tamponade. -Continue Norvasc 10 mg daily, Coreg 25 mg twice daily, and losartan 50 mg twice daily. -EKG on admission showed borderline criteria for anterior septal infarct, ST depressed in lateral leads, T wave inversion in lateral leads compared to previous EKG done back in 2013. -No further management needed from cardiology standpoint at this time. Respiratory - Respiratory failure with hypoxia -Chest x-ray showed asymmetrical interstitial thickening within the right lung, right basilar airspace opacity, and 2.8 x 1.1 cm left apical opacity. -D-dimer elevated at 1600, CTA showed questionable filling defect but overall no suggestion of pulmonary embolism. -Chest CTA showed consolidation within the right lower lobe favoring pneumonia as well as asymmetric pulmonary edema. Also showed emphysema, small right pleural effusion, small pericardial effusion, enlarged heart, as well as mild right hilar lymphadenopathy -Viral BioFire negative -Required medical ventilation overnight now back on aerosol mask -Given 3 doses of IV Lasix 80 mg yesterday which has improved patient's condition. Given another dose of IV Lasix 80 mg this morning. COPD exacerbation Pneumonia Given DuoNeb in the ED. -We will transition to oral steroids, 40 mg prednisone with a taper. -Continue with ceftriaxone and transition to Augmentin for total of 7 days of treatment. Possible allergic reaction? -Given epinephrine, dexamethasone, diphenhydramine, and famotidine for possible allergic reaction to wine coolers in the ED. -Allergic reaction unlikely at this time. GI - -fluid restriction of 1800 cc/day, can start regular diet at this time. RENAL/LYTES - Hyponatremia -Sodium of 117 at time of admission. Previous sodium of 133 on 05/2023 as an outpatient. Patient was drinking a significant amount of water at home. -Nephrology consulted, fluid restriction at 1800 cc/day. Further work-up for causes of hyponatremia labs ordered. Checking serum osmolality, urine osmolarity, and urine sodium -Leading diagnosis is hypervolemic hyponatremia with severe polydipsia. -Given 80 mg IV Lasix x3 on 06/11. Given another dose this morning. Improving with IV Lasix. Sodium of 128 this a.m. Hypomagnesia -Magnesium 1.5 at time of admission. 2 bags given. Normal this morning. - -No concerns at this time. ENDO - -Follow ICU hyperglycemic protocols HEME - -Stable H&H -Will monitor for any drops, not currently on any DVT prophylaxis at this time ID - Pneumonia -Leukocytosis at 17 at time of admission. -Blood cultures pending -Given 1 mg ceftriaxone in the ED. Continue with ceftriaxone and transition to Augmentin for total of 7 days of treatment. -Viral BioFire negative. MRSA swab negative -Monitor fever curve. LINES/IV ACCESS - PIVs intact. DVT PROPHYLAXIS - -Started on Lovenox 40 mg every morning. May downgrade from ICU care at this time. Thank you for allowing us to be part of this patient's care. Please refer to Dr. Kim''s documentation for any further recommendations. Admission and Anticipated Discharge Date Admission Date: June 11, 2023 Supervising Physician Co-Signing Physician Notes Dr. Lopez was resident physician during care of patient. I separately evaluated patient for cardona portions of the history and the exam. I was present during the critical portion of medical decision making, and I discussed the case with the resident. I generally agree with the findings and plan. Required noninvasive mechanical ventilation overnight now back to aerosol mask, goal oxygen saturations 88-92. Sodium continues to improve discussed with nephrology give 1 additional dose of Lasix at this time. Continue with fluid restriction, can have regular diet. Continue with ceftriaxone for today transition to Augmentin tomorrow for a total of 7 days of effective therapy. Discontinue oral steroids transition to 40 mg prednisone daily and then taper. Continue to monitor blood pressure, it is improved compared to yesterday can anticipate this will continue to improve as her COPD exacerbation and pneumonia continue to improve. Stable for downgrade out of ICU Subjective Patient seen bedside this morning. She has no issues or complaints at this time. Review of Systems Review of Systems: All systems reviewed & are unremarkable except as noted in Subjective Physical Exam Constitutional: + acute distress and + ill appearing Neck: trachea midline, no thyromegaly Respiratory: Auscultation: + rales (Bilateral lower lobes L>R) and + wheezes (Throughout) Cardiovascular: RRR, no murmur, no edema Gastrointestinal (Abdomen): normal bowel sounds, soft, nontender, no hepatosplenomegaly Skin: no rashes, warm and dry Results & Data Results & Data Vital Signs (Past 12 Hours) Vital Signs Temp Pulse Pulse Resp BP Pulse Ox O2 Del Method 06/12/23 08:16 Aerosol Mask 06/12/23 07:53 75 20 98 Aerosol Mask 06/12/23 07:44 83 06/12/23 07:30 80 22 94 Aerosol Mask 06/12/23 07:00 71 16 95 06/12/23 07:00 156/79 H 06/12/23 05:13 73 06/12/23 04:15 78 22 99 06/12/23 04:00 72 16 97 06/12/23 04:00 170/81 H 06/12/23 03:45 73 14 96 06/12/23 03:30 81 20 96 06/12/23 03:15 70 14 93 06/12/23 03:00 76 18 94 06/12/23 03:00 158/83 H 06/12/23 02:45 71 14 93 06/12/23 02:30 71 15 92 06/12/23 02:27 36.8 C 06/12/23 02:15 69 14 97 06/12/23 02:00 71 14 100 06/12/23 02:00 148/70 H 06/12/23 01:45 72 14 97 06/12/23 01:30 81 20 96 06/12/23 01:15 76 16 95 06/12/23 01:00 72 16 95 06/12/23 00:45 79 18 92 06/12/23 00:30 71 16 96 06/12/23 00:15 78 19 95 06/12/23 00:00 74 15 88 L 06/12/23 00:00 162/81 H 06/11/23 23:45 76 21 90 06/12/23 01:56 70 14 97 06/12/23 01:55 70 21 99 BiPAP 06/11/23 23:30 83 22 97 06/11/23 23:15 75 17 97 06/11/23 23:00 73 22 93 06/11/23 23:00 166/85 H 06/11/23 22:45 77 20 98 06/11/23 22:30 75 16 100 06/11/23 22:15 76 17 93 06/11/23 22:00 77 14 82 L 06/11/23 22:00 154/85 H 06/11/23 21:45 70 15 97 06/11/23 21:30 70 15 98 06/11/23 21:15 74 15 94 06/11/23 23:09 76 22 95 CPAP 06/11/23 22:25 74 24 99 06/11/23 21:00 70 16 91 06/11/23 21:00 167/75 H 06/11/23 20:45 73 20 91 06/11/23 21:03 36.7 C 06/11/23 20:44 72 16 93 Aerosol Mask O2 Flow Rate FiO2 06/12/23 08:16 15 50 06/12/23 07:53 50 06/12/23 07:44 06/12/23 07:30 15 50 06/12/23 07:00 06/12/23 07:00 06/12/23 05:13 06/12/23 04:15 06/12/23 04:00 06/12/23 04:00 06/12/23 03:45 06/12/23 03:30 06/12/23 03:15 06/12/23 03:00 06/12/23 03:00 06/12/23 02:45 06/12/23 02:30 06/12/23 02:27 06/12/23 02:15 06/12/23 02:00 06/12/23 02:00 06/12/23 01:45 06/12/23 01:30 06/12/23 01:15 06/12/23 01:00 06/12/23 00:45 06/12/23 00:30 06/12/23 00:15 06/12/23 00:00 06/12/23 00:00 06/11/23 23:45 06/12/23 01:56 35 06/12/23 01:55 35 06/11/23 23:30 06/11/23 23:15 06/11/23 23:00 06/11/23 23:00 06/11/23 22:45 06/11/23 22:30 06/11/23 22:15 06/11/23 22:00 06/11/23 22:00 06/11/23 21:45 06/11/23 21:30 06/11/23 21:15 06/11/23 23:09 35 06/11/23 22:25 35 06/11/23 21:00 06/11/23 21:00 06/11/23 20:45 06/11/23 21:03 06/11/23 20:44 10 50 Laboratory Results 06/12/23 05:31 06/12/23 07:09 (6) Pulmonary emphysema Emphysema type: centrilobular Qualified Code(s): J43.2 - Centrilobular emphysema
[2023-06-12] MEDS ORDERED: ASPIRIN 81 MG ECTAB PO SCH (09:00)
[2023-06-12] MEDS ORDERED: ENOXAPARIN INJ 40 MG/0.4 ML SYR SQ SCH (09:00)
--- NOTE | 2023-06-12 09:29 | Nephrology Progress Note ---
Date of Service June 12, 2023 Assessment & Plan Admission and Anticipated Discharge Date Admission Date: June 11, 2023 Subjective Assessment & Plan (1) Hyponatremia: This is in the setting of respiratory failure. With her underlying COPD and very poor solid food nutrition and very very excessive fluid intake of almost 10 to 15 L/day she is at high risk of hyponatremia. She does have chronic mild hyponatremia as an outpatient. The current hyponatremia got really worse because of no solid food intake for the last 3 days and excessive fluid intake. For now we will be managing her as a hypervolemic hyponatremia plus severe polydipsia. She can have more lasix iv later in the evening. Na improving nicely with lasix iv and FFR. Continue same. can check BMP once daily now (2) Respiratory failure with hypoxia: Underlying COPD with superimposed CHF. Lasix IV plus underlying treatment for COPD. S---still very SOB. Had lasix 80 mg iv x 3. made 2800 ml urine. na from 117 to 118 now. Physical Exam Physical Exam: Patient is in significant respiratory distress and can barely speak. Requiring high flow oxygen Constitutional: Thin built chronically ill-appearing Respiratory: Bilateral rhonchi and wheezing extensively Cardiovascular: Regular rate and rhythm tachycardia. No edema Gastrointestinal (Abdomen): Soft nontender Skin: No rashes noted Results & Data Vital Signs (Past 12 Hours) Vital Signs Temp Pulse Pulse Resp BP Pulse Ox O2 Del Method 06/12/23 08:16 Aerosol Mask 06/12/23 07:53 75 20 98 Aerosol Mask 06/12/23 07:44 83 06/12/23 07:30 80 22 94 Aerosol Mask 06/12/23 07:00 71 16 95 06/12/23 07:00 156/79 H 06/12/23 05:13 73 06/12/23 04:15 78 22 99 06/12/23 04:00 72 16 97 06/12/23 04:00 170/81 H 06/12/23 03:45 73 14 96 06/12/23 03:30 81 20 96 06/12/23 03:15 70 14 93 06/12/23 03:00 76 18 94 06/12/23 03:00 158/83 H 06/12/23 02:45 71 14 93 06/12/23 02:30 71 15 92 06/12/23 02:27 36.8 C 06/12/23 02:15 69 14 97 06/12/23 02:00 71 14 100 06/12/23 02:00 148/70 H 06/12/23 01:45 72 14 97 06/12/23 01:30 81 20 96 06/12/23 01:15 76 16 95 06/12/23 01:00 72 16 95 06/12/23 00:45 79 18 92 06/12/23 00:30 71 16 96 06/12/23 00:15 78 19 95 06/12/23 00:00 74 15 88 L 06/12/23 00:00 162/81 H 06/11/23 23:45 76 21 90 06/12/23 01:56 70 14 97 06/12/23 01:55 70 21 99 BiPAP 06/11/23 23:30 83 22 97 06/11/23 23:15 75 17 97 06/11/23 23:00 73 22 93 06/11/23 23:00 166/85 H 06/11/23 22:45 77 20 98 06/11/23 22:30 75 16 100 06/11/23 22:15 76 17 93 06/11/23 22:00 77 14 82 L 06/11/23 22:00 154/85 H 06/11/23 21:45 70 15 97 06/11/23 21:30 70 15 98 06/11/23 23:09 76 22 95 CPAP 06/11/23 22:25 74 24 99 O2 Flow Rate FiO2 06/12/23 08:16 15 50 06/12/23 07:53 50 06/12/23 07:44 06/12/23 07:30 15 50 06/12/23 07:00 06/12/23 07:00 06/12/23 05:13 06/12/23 04:15 06/12/23 04:00 06/12/23 04:00 06/12/23 03:45 06/12/23 03:30 06/12/23 03:15 06/12/23 03:00 06/12/23 03:00 06/12/23 02:45 06/12/23 02:30 06/12/23 02:27 06/12/23 02:15 06/12/23 02:00 06/12/23 02:00 06/12/23 01:45 06/12/23 01:30 06/12/23 01:15 06/12/23 01:00 06/12/23 00:45 06/12/23 00:30 06/12/23 00:15 06/12/23 00:00 06/12/23 00:00 06/11/23 23:45 06/12/23 01:56 35 06/12/23 01:55 35 06/11/23 23:30 06/11/23 23:15 06/11/23 23:00 06/11/23 23:00 06/11/23 22:45 06/11/23 22:30 06/11/23 22:15 06/11/23 22:00 06/11/23 22:00 06/11/23 21:45 06/11/23 21:30 06/11/23 23:09 35 06/11/23 22:25 35
[2023-06-12] MEDS ORDERED: FUROSEMIDE 40 MG/4 ML VIAL IV ONE ×2 (10:00→18:00)
--- NOTE | 2023-06-12 11:12 | Cardiology Progress Note ---
Date of Service June 12, 2023 Assessment & Plan (1) Elevated troponin: (2) Chest discomfort: (3) Respiratory failure with hypoxia: (4) Hyponatremia: (5) Essential hypertension: (6) Dyslipidemia: (7) Pulmonary emphysema: Plan 58 year old female with past tobacco abuse, pulmonary emphysema and adenocarcinoma of the lung status post left upper lobectomy. Patient admitted to [facility] on 06/11/2023 with acute hypoxic respiratory failure, right sided pneumonia, marked hyponatremia. Troponin mildly elevated and downtrending, without chest pain, acute EKG change, or regional wall motion abnormality. Echo notable for a small circumferential pericardial effusion without hemodynamic significance felt to be secondary to the above pulmonary issues. Recommendations: Repeat limited echocardiogram circa to 06/18/2023 to reevaluate the small pericardial effusion. Treatment of the acute hypoxic respiratory failure as per hospitalist/critical care. Admission and Anticipated Discharge Date Admission Date: June 11, 2023 Supervising Physician Co-Signing Physician Notes 58-year-old female seen and examined at the bedside. Feeling better today. Minimal sputum production noted with ongoing cough. Denies orthopnea or PND. No edema. PE: SaO2 of 91% on 4LNC. GEN: NAD, AAOx3. Heart: Regular rhythm, normal S1-S2. No murmur. Lungs: Positive crackles with diminished lung sounds at the right base. No wheeze. Ext: no edema. A/P: Agree with above PA-C history, physical exam, assessment and plan. Echocardiogram without regional wall motion abnormality. There is a small circumferential pericardial effusion without hemodynamic significance. No significant valvular pathology. No regional wall motion abnormality suggests ischemic heart disease. Repeat limited echocardiogram in 5 to 7 days for reevaluation of small pericardial effusion which I suspect is secondary to underlying pulmonary infectious process. Her mildly elevated high-sensitivity troponin is due to hypoxic respiratory failure in the setting of acute pneumonia. Subjective Patient seen and examined. Chart, medications, and telemetry reviewed. Breathing has improved. Cough is loosening, productive of green mucous. No hemoptysis. SP02 91% on 4 L/min via NC. No chest pain. No palpitations. Telemetry: Sinus throughout. No significant arrhythmias. Review of Systems Review of Systems: Complete review of systems is otherwise as stated above, negative, noncontributory. Physical Exam Physical Exam: General: A&Ox3. NAD. HENT: Normocephalic. Atraumatic. Eyes: PER. Conjunctiva pink, sclera clear. Neck: No JVD. Heart: Regular at 80 bpm. No murmur. No rub. Lungs: Decreased. Diminished. No wheeze. Abdomen: +BS. Soft. Nontender. No masses or organomegaly. Extremities: No clubbing, cyanosis, or edema. Limited neurological examination is without focal deficits. Pulses: radial=2/4, posterior tibial=1/4. Results & Data Vital Signs (Past 12 Hours) Vital Signs Temp Pulse Pulse Resp BP BP Pulse Ox 06/12/23 10:44 36.8 C 74 18 146/89 H 91 06/12/23 10:44 06/12/23 09:00 71 17 89 L 06/12/23 09:00 159/76 H 06/12/23 08:00 78 21 97 06/12/23 08:00 159/77 H 06/12/23 08:16 06/12/23 07:53 75 20 98 06/12/23 07:44 83 06/12/23 07:30 80 22 94 06/12/23 07:00 71 16 95 06/12/23 07:00 156/79 H 06/12/23 05:13 73 06/12/23 04:15 78 22 99 06/12/23 04:00 72 16 97 06/12/23 04:00 170/81 H 06/12/23 03:45 73 14 96 06/12/23 03:30 81 20 96 06/12/23 03:15 70 14 93 06/12/23 03:00 76 18 94 06/12/23 03:00 158/83 H 06/12/23 02:45 71 14 93 06/12/23 02:30 71 15 92 06/12/23 02:27 36.8 C 06/12/23 02:15 69 14 97 06/12/23 02:00 71 14 100 06/12/23 02:00 148/70 H 06/12/23 01:45 72 14 97 06/12/23 01:30 81 20 96 06/12/23 01:15 76 16 95 06/12/23 01:00 72 16 95 06/12/23 00:45 79 18 92 06/12/23 00:30 71 16 96 06/12/23 00:15 78 19 95 06/12/23 00:00 74 15 88 L 06/12/23 00:00 162/81 H 06/11/23 23:45 76 21 90 06/12/23 01:56 70 14 97 06/12/23 01:55 70 21 99 06/11/23 23:30 83 22 97 06/11/23 23:15 75 17 97 Pulse Ox O2 Del Method O2 Del Method O2 Flow Rate O2 Flow Rate FiO2 06/12/23 10:44 Nasal Cannula 4 06/12/23 10:44 90 Nasal Cannula 4 06/12/23 09:00 06/12/23 09:00 06/12/23 08:00 06/12/23 08:00 06/12/23 08:16 Aerosol Mask 15 50 06/12/23 07:53 Aerosol Mask 50 06/12/23 07:44 06/12/23 07:30 Aerosol Mask 15 50 06/12/23 07:00 06/12/23 07:00 06/12/23 05:13 06/12/23 04:15 06/12/23 04:00 06/12/23 04:00 06/12/23 03:45 06/12/23 03:30 06/12/23 03:15 06/12/23 03:00 06/12/23 03:00 06/12/23 02:45 06/12/23 02:30 06/12/23 02:27 06/12/23 02:15 06/12/23 02:00 06/12/23 02:00 06/12/23 01:45 06/12/23 01:30 06/12/23 01:15 06/12/23 01:00 06/12/23 00:45 06/12/23 00:30 06/12/23 00:15 06/12/23 00:00 06/12/23 00:00 06/11/23 23:45 06/12/23 01:56 35 06/12/23 01:55 BiPAP 35 06/11/23 23:30 06/11/23 23:15 Laboratory Results Cardiac Enzymes 06/11/23 Range/Units 14:46 Troponin I High Sens 78.9 H* (0-14) pg/ml CBC 06/12/23 Range/Units 05:31 WBC 16.49 H (4.8-10.8) K/ul RBC 3.37 L (4.20-5.40) M/uL Hgb 10.1 L (12.0-16.0) g/dl Hct 27.4 L (37.0-47.0) % Plt Count 145 (130-400) K/uL Neut # (Auto) 15.57 H (1.40-6.50) K/uL Lymph # (Auto) 0.50 L (1.20-3.40) K/uL [place] # (Auto) 0.35 (0.11-0.59) K/uL Eos # (Auto) 0.00 (0.00-0.50) K/uL Baso # (Auto) 0.01 (0.00-0.20) K/uL Comprehensive Metabolic Panel 06/11/23 06/11/23 06/12/23 Range/Units 14:46 19:17 01:19 Sodium 121 L 123 L 125 L (136-145) mmol/L Potassium 3.9 4.0 3.9 (3.5-5.1) mmol/L Chloride 91 L 91 L 91 L (98-107) mmol/L Carbon Dioxide 24 24 28 (21-32) mmol/L BUN 16 16 22 (6-23) mg/dl Creatinine 1.04 1.16 1.19 (0.6-1.2) mg/dl Glucose 127 H 173 H 141 H (70-99(Fasting)) mg/dl Calcium 8.2 L 8.4 L 8.1 L (8.6-10.3) mg/dl 06/12/23 06/12/23 Range/Units 05:31 07:09 Sodium 126 L 128 L (136-145) mmol/L Potassium 4.0 4.0 (3.5-5.1) mmol/L Chloride 94 L 94 L (98-107) mmol/L Carbon Dioxide 28 29 (21-32) mmol/L BUN 22 23 (6-23) mg/dl Creatinine 1.09 1.13 (0.6-1.2) mg/dl Glucose 140 H 138 H (70-99(Fasting)) mg/dl Calcium 8.3 L 8.2 L (8.6-10.3) mg/dl Intake and Output 06/11/23 06/12/23 06/12/23 22:59 06:59 14:59 Intake Total 160 / 760 Output Total 900 / 2800 750 / 2800 Balance -740 / -2040 -750 / -2040 Intake: IV 60 / 560 cefTRIAXone SODIUM 1,000 mg In 60 / 60 Dextrose 5% 50 ml @ 100 mls/hr IV Q24H [facility] Rx#:[id number] Oral 100 / 200 Output: Urine 900 / 2800 750 / 2800 (7) Pulmonary emphysema Emphysema type: centrilobular Qualified Code(s): J43.2 - Centrilobular emphysema
--- NOTE | 2023-06-12 12:33 | Hospitalist Progress Note ---
Date of Service June 12, 2023 Assessment & Plan (1) Pneumonia: (2) Acute hyponatremia: Plan 58-year-old lady with PMH of COPD, lung cancer s/p resection, HTN, depression/anxiety, GERD, HLD, tobacco abuse [reports quitting tobacco 3 days ago] who reports drinking alcohol very occasionally and having reaction with malt liquor (wine cooler) in the past presented to the ED 06/11 with complaint of worsening shortness of breath and chest heaviness. Patient reports drinking [place] wine coolers around [facility] last 2 day ago evening [employer]', was okay on the Sunday evening, started having difficulty breathing throughout Sunday which improved by later evening but again was worsened with ?? use of nebulization at home in the evening, She stayed through the Sunday when it was again worsened, finally decided to come to ED [employer] Sunday. She is being managed for the following: Acute respiratory failure with hypoxia Acute exacerbation of COPD Right lower lobe pneumonia Concern for allergic reaction to wine coolers: Received epinephrine/Francia dryl/Solu-Medrol in the ED with transient improvement then again worsened needing consideration for ICU/another dose of epinephrine. Sepsis POA: Likely secondary to RLL pneumonia. WBC/respiratory rate elevated at presentation. Lactate WNL. Patient came in with worsening breathing, was using accessory muscle at presentation, needed BiPAP and high flow oxygen/transition to ICU for close monitoring. Admitting CTA chest with RLL consolidation. Mild right hilar lymphadenopathy, 6-month CT chest recommended to ensure resolution. Emphysema noted. Linear density in the left lung apex, monitor in follow-up CT chest. Patient was admitted to ICU for close monitoring at presentation, currently down to 4 L oxygen via nasal cannula, will downgrade to PCU status today. Wean down oxygen as tolerated, continue with antibiotic/ nebs/steroid. Taper steroid to stop in next few days. Transition to Augmentin tomorrow. Follow admitting blood culture. Elevated troponin/likely type II NSTEMI: Troponin elevated at 90 at presentation, patient with some chest discomfort which could likely from respir atory distress retrospectively thinking. Now with no chest pain. Also her acute infection contributing to troponin elevation. EKG with no acute ST or T abnormalities. Echo with EF of 50 to 55%, LV function WNL, no regional wall motion abnormalities noted, small circumferential pericardial effusion noted. Cardiology on board, appreciate recommendation. Plan for repeating echo to follow pericardial effusion. Continue telemetry monitoring. Acute Severe hyponatremia: Admitting sodium of 118, patient drinks a lot of water every day. Patient advised to limit fluid intake to around 2 L a day. Sodium gradually improving, 128 today. Free fluid restriction of 1800 mL a day, nephrology on board, managing diuresis/sodium level. Plan for another dose of diuresis later in the evening. Other chronic medical conditions: HLD, psychiatric comorbidities, tobacco abuse-->> continue with/resume home meds as and when able. Nicotine patch as n eeded. DVT prophylaxis: Lovenox Full code Admission and Anticipated Discharge Date Admission Date: June 11, 2023 Subjective Patient seen and examined at bedside. Patient was sitting up in bed, on 4 L oxygen via nasal cannula, not in any acute distress. Patient eating her lunch, reports feeling significantly better today, reports breathing better, denies headache or dizziness or fever or chills. Patient denies any belly pain, reports some cough but has not been able to spit up sputum. Physical Exam Physical Exam: GENERAL: Alert and oriented x3. NAD, on 3L NC O2, looks older than stated age. HEENT: No pallor, no icterus. Pupils equal, round and reactive to light. Oral mucosa moist. NECK: No JVD, no neck masses. HEART: S1 and S2 heard. Regular rate and rhythm. No murmur, no gallop. RESPIRATORY SYSTEM: Normal AP diameter. no accessory muscle use. + b/l rhonci, b/l rales. ABDOMEN: Soft, bowel sounds present, nontender, no distention. CENTRAL NERVOUS SYSTEM: No facial droop. Speech is clear. Obeys simple commands. Moves extremities. EXTREMITIES: No edema, no erythema seen. Results & Data Results & Data Vital Signs (Past 12 Hours) Vital Signs Temp Pulse Pulse Resp BP BP Pulse Ox 06/12/23 10:44 36.8 C 74 18 146/89 H 91 06/12/23 10:44 06/12/23 09:00 71 17 89 L 06/12/23 09:00 159/76 H 06/12/23 08:00 78 21 97 06/12/23 08:00 159/77 H 06/12/23 08:16 06/12/23 07:53 75 20 98 06/12/23 07:44 83 06/12/23 07:30 80 22 94 06/12/23 07:00 71 16 95 06/12/23 07:00 156/79 H 06/12/23 05:13 73 06/12/23 04:15 78 22 99 06/12/23 04:00 72 16 97 06/12/23 04:00 170/81 H 06/12/23 03:45 73 14 96 06/12/23 03:30 81 20 96 06/12/23 03:15 70 14 93 06/12/23 03:00 76 18 94 06/12/23 03:00 158/83 H 06/12/23 02:45 71 14 93 06/12/23 02:30 71 15 92 06/12/23 02:27 36.8 C 06/12/23 02:15 69 14 97 06/12/23 02:00 71 14 100 06/12/23 02:00 148/70 H 06/12/23 01:45 72 14 97 06/12/23 01:30 81 20 96 06/12/23 01:15 76 16 95 06/12/23 01:00 72 16 95 06/12/23 00:45 79 18 92 06/12/23 00:30 71 16 96 06/12/23 01:56 70 14 97 06/12/23 01:55 70 21 99 Pulse Ox O2 Del Method O2 Del Method O2 Flow Rate O2 Flow Rate FiO2 06/12/23 10:44 Nasal Cannula 4 06/12/23 10:44 90 Nasal Cannula 4 06/12/23 09:00 06/12/23 09:00 06/12/23 08:00 06/12/23 08:00 06/12/23 08:16 Aerosol Mask 15 50 06/12/23 07:53 Aerosol Mask 50 06/12/23 07:44 06/12/23 07:30 Aerosol Mask 15 50 06/12/23 07:00 06/12/23 07:00 06/12/23 05:13 06/12/23 04:15 06/12/23 04:00 06/12/23 04:00 06/12/23 03:45 06/12/23 03:30 06/12/23 03:15 06/12/23 03:00 06/12/23 03:00 06/12/23 02:45 06/12/23 02:30 06/12/23 02:27 06/12/23 02:06/12/23 02:00 06/12/23 02:00 06/12/23 01:45 06/12/23 01:30 06/12/23 01:15 06/12/23 01:00 06/12/23 00:45 06/12/23 00:30 06/12/23 01:56 35 06/12/23 01:55 BiPAP 35 (1) Pneumonia Laterality: right Lung location: lower lobe of lung Pneumonia type: due to unspecified organism Qualified Code(s): J18.9 - Pneumonia, unspecified organism
--- NOTE | 2023-06-12 15:32 | Electrocardiogram Report ---
Test Reason : Blood Pressure : / mmHG Vent. Rate : 079 BPM Atrial Rate : 079 BPM P-R Int : 174 ms QRS Dur : 084 ms QT Int : 416 ms P-R-T Axes : 076 -08 109 degrees QTc Int : 477 ms Normal sinus rhythm Possible Left atrial enlargement Anterior infarct (cited on or before 11-JUN-2023) T wave abnormality, consider lateral ischemia Abnormal ECG When compared with ECG of 11-JUN-2023 05:35, Serial changes of evolving Anterior infarct Present Confirmed by Jacoby Rossi ([id number]) on 06/12/2023 3:31:31 PM Referred By: REFERRED SELF Confirmed By:Jacoby Rossi
[2023-06-12] MEDS: cefTRIAXone SODIUM 1,000 MG in DEXTROSE 5% 50 ML IV SCH (15:35)
--- NOTE | 2023-06-12 15:48 | Electrocardiogram Report ---
Test Reason : Blood Pressure : / mmHG Vent. Rate : 098 BPM Atrial Rate : 098 BPM P-R Int : 158 ms QRS Dur : 082 ms QT Int : 354 ms P-R-T Axes : 078 -06 094 degrees QTc Int : 451 ms Normal sinus rhythm Possible Left atrial enlargement Abnormal ECG When compared with ECG of 11-JUN-2023 16:31, (unconfirmed) No significant change was found Confirmed by Jacoby Rossi ([id number]) on 06/12/2023 3:48:09 PM Referred By: REFERRED SELF Confirmed By:Jacoby Rossi
[2023-06-12] MEDS: clonazePAM 0.5 MG TAB PO PRN (20:01)
[2023-06-12] MEDS: ARIPiprazole 5 MG TAB PO SCH (20:02)
[2023-06-12] MEDS: TERAZOSIN HCL 1 MG CAP PO SCH (20:02)
[2023-06-13] MEDS ORDERED: BENZONATATE 100 MG CAPSULE PO PRN (05:56)
[2023-06-13] MEDS ORDERED: methylPREDNISolone 40 MG in SYRINGE 0 ML IV STA (05:57)
--- NOTE | 2023-06-13 05:57 | Communication Note ---
Date of Service: June 13, 2023 Patient noted to have hemoptysis as per RN. No unusual chest pain/SOB complaints as per RN. AP Hemoptysis Current admission for COPD exacerbation secondary to pneumonia, patient on ceftriaxone Continue antibiotic and steroid Rx Antitussives CBC now Hold aspirin and Lovenox until CBC.
[2023-06-13] MEDS ORDERED: BENZONATATE 100 MG CAPSULE PO ONE (06:00)
[2023-06-13 06:53] LABS: Hematocrit (blood only) 29.7 % (37.0-47.0); Hemoglobin 10.4 g/dl (12.0-16.0); Mean Corpuscular Hemoglobin 29.7 pg (25.0-34.0); Mean Corpuscular Volume 84.9 fL (80.0-100.0); Platelet Count 171 K/uL (130-400); RDW Coefficient of Variation 14.7 % (11.5-14.5); RDW Standard Deviation 45.6 fL (36.4-46.3); White Blood Count 17.65 K/ul (4.8-10.8)
[2023-06-13 07:01] LABS: BUN Creatinine Ratio 25.9 (10-20); Calcium 8.1 mg/dl (8.6-10.3); Creatinine Clr Calc Pharmacy 49.2 ml/min; Est GFR (Non-African American) 56.9 ml/min; Potassium 3.7 mmol/L (3.5-5.1)
[2023-06-13 07:05] LABS: Phosphorus 4.3 mg/dl (2.5-4.9)
[2023-06-13 07:26] LABS: Basophils # (auto) 0.02 K/uL (0.00-0.20); Basophils % (auto) 0.1 %; Immature Granulocytes # (auto) 0.09 K/uL (0.01-0.20); Immature Granulocytes % (auto) 0.5 %; Lymphocytes # (auto) 0.52 K/uL (1.20-3.40); Lymphocytes % (auto) 2.9 %; Monocytes # (auto) 0.51 K/uL (0.11-0.59); Monocytes % (auto) 2.9 %; Neutrophils # (auto) 16.51 K/uL (1.40-6.50); Neutrophils % (auto) 93.6 %; Polychromasia 1+
[2023-06-13] MEDS ORDERED: FUROSEMIDE INJ 20 MG/2 ML VIAL IV SCH (08:15)
[2023-06-13] MEDS: carvediloL 25 MG TAB PO SCH ×2 (08:30→16:43)
[2023-06-13] MEDS: LOSARTAN POTASSIUM 50 MG TAB PO SCH ×2 (08:30→21:09)
[2023-06-13] MEDS: ATORVASTATIN 20 MG TAB PO SCH (08:31)
[2023-06-13] MEDS: CETIRIZINE HCL 10 MG TABLET PO SCH (08:31)
[2023-06-13] MEDS: PARoxetine HCL 20 MG TAB PO SCH (08:31)
[2023-06-13] MEDS: amLODIPine BESYLATE 5 MG TAB PO SCH (08:31)
[2023-06-13] MEDS: clonazePAM 0.5 MG TAB PO PRN (08:43)
[2023-06-13] MEDS ORDERED: predniSONE 10 MG TABLET PO SCH (09:00)
--- NOTE | 2023-06-13 09:42 | Nephrology Progress Note ---
Date of Service June 13, 2023 Assessment & Plan Admission and Anticipated Discharge Date Admission Date: June 11, 2023 Subjective Assessment & Plan (1) Hyponatremia: This is in the setting of respiratory failure. With her underlying COPD and very poor solid food nutrition and very very excessive fluid intake of almost 10 to 15 L/day she is at high risk of hyponatremia. She does have chronic mild hyponatremia as an outpatient. The current hyponatremia got really worse because of no solid food intake for the last 3 days and very excessive fluid intake. lasix 40 iv bid for now. Na improving nicely with lasix iv and FFR. Continue same. can check BMP once daily now (2) Respiratory failure with hypoxia: Underlying COPD with superimposed CHF. Lasix IV plus underlying treatment for COPD. S---still SOB but less so. less o2. Lot of urine. Slight hemoptysis earlier this AM. na from 117 to 131 now in 36 hrs. Physical Exam Physical Exam: less SOB and on less o2 Constitutional: Thin built chronically ill-appearing Respiratory: Bilateral rhonchi and wheezing extensively Cardiovascular: Regular rate and rhythm tachycardia. No edema Gastrointestinal (Abdomen): Soft nontender Skin: No rashes noted Results & Data Vital Signs (Past 12 Hours) Vital Signs Temp Pulse Pulse Resp BP Pulse Ox O2 Del Method 06/13/23 08:34 Nasal Cannula 06/13/23 07:20 36.7 C 75 20 160/80 H 98 Room Air 06/13/23 03:00 36.6 C 76 14 162/75 H 91 Nasal Cannula 06/12/23 23:08 66 06/12/23 22:54 36.7 C 73 16 162/76 H 96 Nasal Cannula O2 Flow Rate 06/13/23 08:34 4 06/13/23 07:20 06/13/23 03:00 06/12/23 23:08 06/12/23 22:54
[2023-06-13] MEDS: FUROSEMIDE 40 MG/4 ML VIAL IV SCH ×2 (10:24→16:40)
[2023-06-13 11:04] LABS: INR 0.9 (0.9-1.1); Prothrombin Time 10.3 Seconds (9.0-12.0)
[2023-06-13] MEDS: ALBUT/IPRATROP 3MG/0.5MG NEB 3 ML VIAL NEB SCH ×4 (11:26→22:40)
[2023-06-13] MEDS: SODIUM CHLORIDE 0.65% NA SOLN 45 ML (OCEAN) SCH ×2 (12:04→19:12)
[2023-06-13 12:05] LABS: Anti Nuclear Antibody Screen NEGATIVE (NEGATIVE)
--- NOTE | 2023-06-13 13:26 | Cardiology Progress Note ---
Date of Service June 13, 2023 Assessment & Plan (1) Elevated troponin: (2) Chest discomfort: (3) Respiratory failure with hypoxia: (4) Hyponatremia: (5) Essential hypertension: (6) Dyslipidemia: (7) Pulmonary emphysema: Plan 58 year old female with past tobacco abuse, pulmonary emphysema and adenocarcinoma of the lung status post left upper lobectomy admitted on 06/11/2023 with acute hypoxic respiratory failure, right sided pneumonia, marked hyponatremia. Troponin mildly elevated and downtrending, without chest pain, acute EKG change, or regional wall motion abnormality on echocardiography. Echo notable for a small circumferential pericardial effusion without hemodynamic significance felt to be secondary to the above pulmonary issues. Recommendations: Repeat limited echocardiogram circa to 06/18/2023 to reevaluate the small pericardial effusion. Treatment of the acute hypoxic respiratory failure as per hospitalist/critical care. Please contact with any questions or concerns. Admission and Anticipated Discharge Date Admission Date: June 11, 2023 Subjective Patient seen and examined. Chart, medications, and telemetry reviewed. 4-5 episodes of hemoptysis last night and this morning. SP02 98% on 4 L/min via NC. No chest pain. No palpitations. Telemetry: Sinus with atrial ectopy. No atrial fibrillation Review of Systems Review of Systems: Complete review of systems is otherwise as stated above, negative, no ncontributory. Physical Exam Physical Exam: General: A&Ox3. NAD. HENT: Normocephalic. Atraumatic. Eyes: PER. Conjunctiva pink, sclera clear. Neck: No JVD. Heart: Regular at 70 bpm. No murmur. No rub. Lungs: Decreased. Diminished. Clear. Abdomen: +BS. Soft. Nontender. No masses or organomegaly. Extremities: No clubbing, cyanosis, or edema. Limited neurological examination is without focal deficits. Pulses: radial=2/4, posterior tibial=1/4. Results & Data Vital Signs (Past 12 Hours) Vital Signs Temp Pulse Resp BP Pulse Ox O2 Del Method O2 Flow Rate 06/13/23 11:27 66 18 98 Nasal Cannula 4 06/13/23 10:57 36.8 C 66 18 158/73 H 98 Nasal Cannula 4 06/13/23 08:34 Nasal Cannula 06/13/23 07:20 36.7 C 75 20 160/80 H 98 Room Air 06/13/23 03:00 36.6 C 76 14 162/75 H 91 Nasal Cannula Laboratory Results Coagulation 06/13/23 Range/Units 10:25 PT 10.3 (9.0-12.0) Seconds CBC 06/13/23 Range/Units 06:27 WBC 17.65 H (4.8-10.8) K/ul RBC 3.50 L (4.20-5.40) M/uL Hgb 10.4 L (12.0-16.0) g/dl Hct 29.7 L (37.0-47.0) % Plt Count 171 (130-400) K/uL Neut # (Auto) 16.51 H (1.40-6.50) K/uL Lymph # (Auto) 0.52 L (1.20-3.40) K/uL [place] # (Auto) 0.51 (0.11-0.59) K/uL Eos # (Auto) 0.00 (0.00-0.50) K/uL Baso # (Auto) 0.02 (0.00-0.20) K/uL Comprehensive Metabolic Panel 06/13/23 Range/Units 06:27 Sodium 131 L (136-145) mmol/L Potassium 3.7 (3.5-5.1) mmol/L Chloride 98 (98-107) mmol/L Carbon Dioxide 29 (21-32) mmol/L BUN 28 H (6-23) mg/dl Creatinine 1.08 (0.6-1.2) mg/dl Glucose 139 H (70-99(Fasting)) mg/dl Calcium 8.1 L (8.6-10.3) mg/dl Intake and Output 06/12/23 06/13/23 06/13/23 22:59 06:59 14:59 Intake Total 60 / 60 350 / 350 Balance 60 / -465 350 / 350 Intake: IV 60 / 60 cefTRIAXone SODIUM 1,000 mg In 60 / 60 Dextrose 5% 50 ml @ 100 mls/hr IV Q24H [facility] Rx#:[id number] Oral 350 / 350 Other: # Unmeasured Voids 2 Weight 60.3 kg Weight Measurement Method Built in [facility] (7) Pulmonary emphysema Emphysema type: centrilobular Qualified Code(s): J43.2 - Centrilobular emphysema
--- NOTE | 2023-06-13 14:06 | XRay Report ---
XR chest 1V portable CLINICAL HISTORY: Hemoptysis. COMPARISON STUDY: Chest CT and chest radiograph June 11, 2023. FINDINGS: There is no pneumothorax. Small right pleural effusion has slightly increased since prior e xam. A small left pleural effusion is unchanged. Postoperative findings within the left hemithorax wi th volume loss are unchanged. Interstitial thickening is greater within the right lung. Right basilar opacity has slightly decreased. Cardiomediastinal silhouette is stable. IMPRESSION: 1. Persistent asymmetric interstitial thickening within the right lung. This favors asymmetric pulmon bita edema. 2. Slight decrease in right basilar opacity. This could reflect pneumonia, alveolar pulmonary edema o r pulmonary hemorrhage. 3. Slight increase in a small right pleural effusion. No change in a small left pleural effusion. ACT 112: Negative or not required by law. Electronically signed by: Kwame Weir M.D. 06/13/2023 2:04 PM
--- NOTE | 2023-06-13 14:08 | Hospitalist Progress Note ---
Date of Service June 13, 2023 Assessment & Plan (1) Respiratory failure with hypoxia: (2) Pneumonia: (3) Acute hyponatremia: (4) Chest discomfort: (5) Elevated troponin: (6) Essential hypertension: (7) Dyslipidemia: (8) Pulmonary emphysema: Plan Plan 58-year-old lady with PMH of COPD, lung cancer s/p resection, HTN, depression/anxiety, GERD, HLD, tobacco abuse [reports quitting tobacco 3 days ago] who reports drinking alcohol very occasionally and having reaction with malt liquor (wine cooler) in the past presented to the ED 06/11 with complaint of worsening shortness of breath and chest heaviness. Patient reports drinking [place] wine coolers around [facility] last 2 day ago evening [employer], was okay on the Sunday evening, started having difficulty breathing throughout Sunday which improved by later evening but again was worsened with ?? use of nebulization at home in the evening, She stayed through the Sunday when it was again worsened, finally decided to come to ED manager of tax Sunday. She is being managed for the following: Acute respiratory failure with hypoxia Acute exacerbation of COPD Right lower lobe pneumonia Concern for allergic reaction to wine coolers: Received epinephrine/Benadryl/Solu-Medrol in the ED with transient improvement then again worsened needing consideration for ICU/another dose of epinephrine. Sepsis POA:Likely secondary to RLL pneumonia. WBC/respiratory rate elevated at presentation. Lactate WNL. Patient came in with worsening breathing, was using accessory muscle at presentation, needed BiPAP and high flow oxygen/transition to ICU for close monitoring. Admitting CTA chest with RLL consolidation. Mild right hilar lymphadenopathy, 6-month CT chest recommended to ensure resolution. Emphysema noted. Linear d ensity in the left lung apex,monitor in follow-up CT chest. Patient was admitted to ICU for close monitoring at presentation, currently down to 4 L oxygen via nasal cannula, will downgrade to PCU on 06/13/2023. Wean down oxygen as tolerated, continue with antibiotic/ nebs/steroid. Taper steroid to stop in next few days. Patient reports small amount of hemoptysis on 06/13; chest x-ray obtained and personally reviewed; improvement in pulm edema. Hemoglobin is stable. Will start antitussive therapy. Elevated troponin/likely type II NSTEMI:Troponin elevated at 90 at presentation, patient with some chest discomfort which could likely from respiratory distress retrospectively thinking. Now with no chest pain. Also her acute infection contributing to troponin elevation. EKG with no acute ST or T abnormalities. Echo with EF of 50 to 55%, LV function WNL, no regional wall motion abnormalities noted, small circumferential pericardial effusion noted. Cardiology on board, appreciate recommendation. Plan for Repeat limited echocardiogram circa to 06/18/2023 to reevaluate the small pericardial effusion Acute Severe hyponatremia:Admitting sodium of 118, patient drinks a lot of water every day. Patient advised to limit fluid intake to around 2 L a day. Sodium gradually improving, 131 today. Free fluid restriction of 1800 mL a day, nephrology on board, managing diuresis/sodium level. Other chronic medical conditions:HLD, psychiatric comorbidities, tobacco abuse-->> continue with/resume home meds as and when able. Nicotine patch as needed. DVT prophylaxis; SCDs. Lovenox on hold due to concern for hematemesis. Full code DispoPT OT ordered Time spent evaluating patient, direct bedside care, chart review, placing orders, interpretation of diagnostic studies, discussion with consultants, patient, and family members, as well as other required patient management activities is 60 minutes. Please note the above document was generated using voice recognition software. It may contain grammatical, syntax or spelling errors. Any formal questions or concerns about the content, text or information contained within the body of this dictation should be directly addressed to the provider for clarification Admission and Anticipated Discharge Date Admission Date: June 11, 2023 Subjective Patient reports some bouts of hemoptysis with small specks of blood in the sputum. Reports that her breathing is much better compared to admission. She is requiring 4 L of oxygen by nasal cannula. Review of Systems Review of Systems: All systems reviewed & are unremarkable except as noted in Subjective Physical Exam Physical Exam: GENERAL: Alert and oriented x3. NAD, on 3L NC O2, looks older than stated age. HEENT: No pallor, no icterus. Pupils equal, round and reactive to light. Oral mucosa moist. NECK: No JVD, no neck masses. HEART: S1 and S2 heard. Regular rate and rhythm. No murmur, no gallop. RESPIRATORY SYSTEM: Normal AP diameter. no accessory muscle use. Bilateral wheeze present. ABDOMEN: Soft, bowel sounds present, nontender, no distention. CENTRAL NERVOUS SYSTEM: No facial droop. Speech is clear. Obeys simple commands. Moves extremities. EXTREMITIES: No edema, no erythema seen. Results & Data Results & Data Vital Signs (Past 12 Hours) Vital Signs Temp Pulse Resp BP Pulse Ox O2 Del Method O2 Flow Rate 06/13/23 11:27 66 18 98 Nasal Cannula 4 06/13/23 10:57 36.8 C 66 18 158/73 H 98 Nasal Cannula 4 06/13/23 08:34 Nasal Cannula 4 06/13/23 07:20 36.7 C 75 20 160/80 H 98 Room Air 06/13/23 03:00 36.6 C 76 14 162/75 H 91 Nasal Cannula Laboratory Results Laboratory Results WBC 17.65 K/ul (4.8-10.8) H 06/13/23 06:27 RBC 3.50 M/uL (4.20-5.40) L 06/13/23 06:27 Hgb 10.4 g/dl (12.0-16.0) L 06/13/23 06:27 POC Hgb 10.2 g/dl (12.0-16.0) L 06/11/23 22:19 Hct 29.7 % (37.0-47.0) L 06/13/23 06:27 POC Hct 30 % (37-47) L 06/11/23 22:19 MCV 84.9 fL (80.0-100.0) 06/13/23 06:27 MCH 29.7 pg (25.0-34.0) 06/13/23 06:27 MCHC 35.0 g/dL (32.0-36.0) 06/13/23 06:27 RDW Std Deviation 45.6 fL (36.4-46.3) 06/13/23 06:27 RDW Coeff of Shanna 14.7 % (11.5-14.5) H 06/13/23 06:27 Plt Count 171 K/uL (130-400) 06/13/23 06:27 MPV 12.0 fL (9.4-12.4) 06/13/23 06:27 Immature Gran % (Auto) 0.5 % 06/13/23 06:27 Neut % (Auto) 93.6 % 06/13/23 06:27 Lymph % (Auto) 2.9 % 06/13/23 06:27 Hickman % (Auto) 2.9 % 06/13/23 06:27 Eos % (Auto) 0.0 % 06/13/23 06:27 Baso % (Auto) 0.1 % 06/13/23 06:27 Neut # (Auto) 16.51 K/uL (1.40-6.50) H 06/13/23 06:27 Lymph # (Auto) 0.52 K/uL (1.20-3.40) L 06/13/23 06:27 Hickman # (Auto) 0.51 K/uL (0.11-0.59) 06/13/23 06:27 Eos # (Auto) 0.00 K/uL (0.00-0.50) 06/13/23 06:27 Baso # (Auto) 0.02 K/uL (0.00-0.20) 06/13/23 06:27 Immature Gran # (Auto) 0.09 K/uL (0.01-0.20) 06/13/23 06:27 Polychromasia 1+ 06/13/23 06:27 PT 10.3 Seconds (9.0-12.0) 06/13/23 10:25 INR 0.9 (0.9-1.1) 06/13/23 10:25 D-Dimer 1610 ug/L FEU (0-500) H* 06/11/23 05:40 POC pH 7.41 (7.35-7.45) 06/11/23 22:19 POC pCO2 43 mmHg (35-46) 06/11/23 22:19 POC pO2 62 mmHg (80-95) L 06/11/23 22:19 POC HCO3 28 lacy/L (19-24) H 06/11/23 22:19 POC Total CO2 29 mmol/L (24-31) 06/11/23 22:19 POC Base Excess 3.0 lacy/L (-9-1.8) H 06/11/23 22:19 ABG pH 7.32 (7.35-7.45) L 06/11/23 09:30 ABG pCO2 43 mmHg (35-46) 06/11/23 09:30 ABG pO2 71 mmHg (80-95) L 06/11/23 09:30 ABG HCO3 22 mmol/L (19-24) 06/11/23 09:30 POC ABG O2 Sat 91.0 % (90-95) 06/11/23 22:19 ABG O2 Saturation 94.4 % (90-95) 06/11/23 09:30 ABG Base Excess -3.9 mEq/L (-9-1.8) 06/11/23 09:30 Jack Test Pos (Pos) 06/11/23 09:30 VBG pH 7.31 (7.36-7.41) L 06/11/23 Unknown VBG pCO2 45 mmHg (38-50) 06/11/23 Unknown VBG pO2 59 mmHg 06/11/23 Unknown VBG HCO3 23 mmol/L 06/11/23 Unknown VBG O2 Saturation 87.5 % 06/11/23 Unknown VBG Base Excess -3.7 mEq/L 06/11/23 Unknown Oxygen Given 10 L 06/11/23 09:30 POC Sodium 124 mmol/L (135-144) L 06/11/23 22:19 Sodium 131 mmol/L (136-145) L 06/13/23 06:27 POC Potassium 4.0 mmol/L (3.3-5.0) 06/11/23 22:19 Potassium 3.7 mmol/L (3.5-5.1) 06/13/23 06:27 Chloride 98 mmol/L (98-107) 06/13/23 06:27 Carbon Dioxide 29 mmol/L (21-32) 06/13/23 06:27 Anion Gap 4 (3-11) 06/13/23 06:27 BUN 28 mg/dl (6-23) H 06/13/23 06:27 Creatinine 1.08 mg/dl (0.6-1.2) 06/13/23 06:27 Est Cr Clr Drug Dosing 49.2 ml/min 06/13/23 06:27 Est GFR ( Amer) 66.0 ml/min 06/13/23 06:27 Est GFR (Non-Af Amer) 56.9 ml/min 06/13/23 06:27 BUN/Creatinine Ratio 25.9 (10-20) H 06/13/23 06:27 Glucose 139 mg/dl (70-99(Fasting)) H 06/13/23 06:27 Osmolality 257 mOsm/kg (280-300) L 06/11/23 09:31 Lactate 1.0 mmol/L (0.4-2.0) 06/11/23 06:22 Calcium 8.1 mg/dl (8.6-10.3) L 06/13/23 06:27 Phosphorus 4.3 mg/dl (2.5-4.9) D 06/13/23 06:27 Magnesium 2.0 mg/dl (1.7-2.4) 06/13/23 06:27 Total Bilirubin 1.9 mg/dl (0.2-1.0) H 06/11/23 05:40 AST 36 U/L (13-39) 06/11/23 05:40 ALT 25 U/L (7-52) 06/11/23 05:40 Alkaline Phosphatase 82 U/L (34-104) 06/11/23 05:40 Troponin I High Sens 78.9 pg/ml (0-14) H* 06/11/23 14:46 B-Natriuretic Peptide 2238 pg/ml (0-100) H 06/11/23 09:56 Total Protein 7.3 gm/dl (6.0-8.3) 06/11/23 05:40 Albumin 4.1 gm/dl (3.4-5.0) 06/11/23 09:31 Globulin 3.0 gm/dl (2.5-4.0) 06/11/23 05:40 Albumin/Globulin Ratio 1.4 (0.9-2) 06/11/23 05:40 Procalcitonin 0.29 ng/ml (0-0.5) 06/11/23 05:40 TSH 0.292 uIu/ml (0.300-4.500) L 06/11/23 14:46 Free T4 1.24 ng/dl (0.61-1.60) 06/11/23 14:46 Urine Color Yellow 06/11/23 11:51 Urine Appearance Clear (Clear) 06/11/23 11:51 Urine pH 5.0 (4.5-7.5) 06/11/23 11:51 Ur Specific [place] 1.014 (1.000-1.030) 06/11/23 11:51 Urine Protein Negative (Negative) 06/11/23 11:51 Urine Glucose (UA) Negative (Negative) 06/11/23 11:51 Urine Ketones Negative (Negative) 06/11/23 11:51 Urine Blood Trace (Negative) H 06/11/23 11:51 Urine Nitrite Negative (Negative) 06/11/23 11:51 Urine Bilirubin Negative (Negative) 06/11/23 11:51 Urine Urobilinogen Negative (Negative) 06/11/23 11:51 Ur Leukocyte Esterase 1+ (Negative) H 06/11/23 11:51 Urine WBC (Auto) 1-5 /hpf (0-5) 06/11/23 11:51 Urine RBC (Auto) 0-4 /hpf (0-4) 06/11/23 11:51 U Hyaline Cast (Auto) 1-5 /lpf (0-5) 06/11/23 11:51 U Epithel Cells (Auto) 10-20 /lpf (0-5) H 06/11/23 11:51 Urine Bacteria (Auto) Negative (Negative) 06/11/23 11:51 Urine Osmolality 171 mOsm/kg (500-800) L 06/11/23 11:51 Ur Random Sodium 33 mmol/L 06/11/23 11:51 Nasal Screen MRSA (PCR) Negative (Negative) 06/11/23 10:15 RADHA Screen NEGATIVE (NEGATIVE) 06/11/23 19:17 Adenovirus (PCR) Not Detected (NotDetected) 06/11/23 Unknown B. pertussis DNA (PCR) Not Detected (NotDetected) 06/11/23 Unknown B.parapertussis DNA PCR Not Detected (NotDetected) 06/11/23 Unknown C. pneumoniae DNA (PCR) Not Detected (NotDetected) 06/11/23 Unknown Coronavirus OC43 (PCR) Not Detected (NotDetected) 06/11/23 Unknown Coronavirus HKU1 (PCR) Not Detected (NotDetected) 06/11/23 Unknown Coronavirus 229E (PCR) Not Detected (NotDetected) 06/11/23 Unknown SARS-CoV-2 (PCR) Not Detected (NotDetected) 06/11/23 Unknown Coronavirus NL63 (PCR) Not Detected (NotDetected) 06/11/23 Unknown Human Metapneumovir PCR Not Detected (NotDetected) 06/11/23 Unknown Influenza Type A (PCR) Not Detected (NotDetected) 06/11/23 Unknown Influenza Type B (PCR) Not Detected (NotDetected) 06/11/23 Unknown M. pneumoniae (PCR) Not Detected (NotDetected) 06/11/23 Unknown Parainfluenza 1 (PCR) Not Detected (NotDetected) 06/11/23 Unknown Parainfluenza 2 (PCR) Not Detected (NotDetected) 06/11/23 Unknown Parainfluenza 3 (PCR) Not Detected (NotDetected) 06/11/23 Unknown Parainfluenza 4 (PCR) Not Detected (NotDetected) 06/11/23 Unknown RSV (PCR) Not Detected (NotDetected) 06/11/23 Unknown Entero/Rhino (PCR) Not Detected (NotDetected) 06/11/23 Unknown Blood Type A Positive 06/13/23 06:27 Antibody Screen NEGATIVE 06/13/23 06:27 Impressions Chest CTA 06/11/23 06:55 CHEST CTA for PULMONARY ARTERIES CT DOSE: 288.01 mGy.cm HISTORY: Shortness of breath. TECHNIQUE: Multiaxial CT images of the chest were performed following the intravenous administration of contrast to evaluate the pulmonary arteries. 3D/Maximal intensity projection images were also obtained. Sagittal and coronal reformations were also reviewed. A dose lowering technique was utilized adhering to the principles of ALARA. COMPARISON STUDY: Outside hospital chest CT 06/01/2021. FINDINGS: Severe calcified plaque at the distal thoracic aorta resulting in severe narrowing. This remains unchanged. Otherwise, there is a normal caliber thoracic aorta with no evidence for dissection. Questionable filling defect seen within the right lower lobe subsegmental pulmonary arteries on image 92 favors respiratory motion artifact. Otherwise, no additional filling defects within the pulmonary arteries to suggest a pulmonary embolus. Mild right hilar lymphadenopathy which has progressed. A dominant right hilar lymph node measures 11 mm in short axis diameter. No mediastinal or left hilar lymphadenopathy. There is a small right pleural effusion. There is a small pericardial effusion. The heart is mildly enlarged. Limited views the upper abdomen demonstrate a normal spleen and visualized adrenal glands. Retrograde opacification of contrast into the hepatic veins is noted. Normal caliber esophagus. Mild body wall edema. Prior left thoracotomy changes from a left upper lobectomy. Otherwise, no acute fractures identified within the chest. Consolidation within the right lower lobe posteriorly with additional patchy densities within the right lung and interlobular septal thickening. This favors a pneumonia. A superimposed asymmetric pulmonary edema could also have a similar appearance. There is progressive linear density within the left lung apex emphysema is noted. Punctate calcified granuloma within the left upper lung zone. IMPRESSION: 1. Questionable filling defect seen within the right middle lobe subsegmental pulmonary arteries favors motion artifact. Otherwise, no filling defects within the remaining pulmonary arteries to suggest a pulmonary embolus. 2. Consolidation within the right lower lobe posteriorly with additional smaller patchy airspace opacities within the right lung. This favors a pneumonia. There is also asymmetric interlobular septal thickening within the right lung with may represent superimposed asymmetric pulmonary edema. 3. Emphysema. 4. Small right pleural effusion and a small pericardial effusion. 5. The heart is enlarged. 6. Linear density within the left lung apex is progressed. Follow-up recommended to ensure stability/resolution. 7. Prior left upper lobectomy. 8. Mild right hilar lymphadenopathy this may be reactive. [address] follow-up recommended to ensure resolution. ACT 112: Positive. There are findings on this exam that require communication between the performing entity and the patient following Patient Test Result Information Act ([place] Act 112) guidelines. Electronically signed by: Bhavik Lowe M.D. 06/11/2023 7:51 AM (2) Pneumonia Laterality: right Lung location: lower lobe of lung Pneumonia type: due to unspecified organism Qualified Code(s): J18.9 - Pneumonia, unspecified organism (8) Pulmonary emphysema Emphysema type: centrilobular Qualified Code(s): J43.2 - Centrilobular emphysema
[2023-06-13] MEDS: BENZONATATE 100 MG CAPSULE PO SCH ×2 (14:13→21:08)
[2023-06-13] MEDS ORDERED: FLUTICASONE/VILANTEROL 100/25MCG 14 PUFFS/INHALER INH SCH (14:15)
--- NOTE | 2023-06-13 14:34 | Billing Data ---
Date of Service June 12, 2023 Coding Level of Care Code 91768 CRITICAL CARE
[2023-06-13] MEDS: cefTRIAXone SODIUM 1,000 MG in DEXTROSE 5% 50 ML IV SCH (16:42)
[2023-06-13] MEDS: TERAZOSIN HCL 1 MG CAP PO SCH (21:08)
[2023-06-13] MEDS: ARIPiprazole 5 MG TAB PO SCH (21:09)
[2023-06-14] MEDS: SODIUM CHLORIDE 0.65% NA SOLN 45 ML (OCEAN) SCH ×5 (00:04→23:22)
[2023-06-14] MEDS: ALBUT/IPRATROP 3MG/0.5MG NEB 3 ML VIAL NEB SCH ×6 (02:06→19:15)
[2023-06-14 06:57] LABS: Hematocrit (blood only) 29.3 % (37.0-47.0); Mean Corpuscular Hemoglobin 29.7 pg (25.0-34.0); Mean Corpuscular Hgb Conc 34.1 g/dL (32.0-36.0); Mean Corpuscular Volume 86.9 fL (80.0-100.0); Platelet Count 181 K/uL (130-400); RDW Coefficient of Variation 15.1 % (11.5-14.5); RDW Standard Deviation 47.8 fL (36.4-46.3); Red Blood Count 3.37 M/uL (4.20-5.40); White Blood Count 14.28 K/ul (4.8-10.8)
[2023-06-14 07:35] LABS: Calcium 8.2 mg/dl (8.6-10.3)
[2023-06-14 07:41] LABS: BUN Creatinine Ratio 36.4 (10-20); Creatinine Clr Calc Pharmacy 53.6 ml/min; Est GFR (African American) 73.3 ml/min; Est GFR (Non-African American) 63.3 ml/min
[2023-06-14] MEDS: amLODIPine BESYLATE 5 MG TAB PO SCH (08:27)
[2023-06-14] MEDS: ATORVASTATIN 20 MG TAB PO SCH (08:27)
[2023-06-14] MEDS: CETIRIZINE HCL 10 MG TABLET PO SCH (08:27)
[2023-06-14] MEDS: LOSARTAN POTASSIUM 50 MG TAB PO SCH ×2 (08:27→20:50)
[2023-06-14] MEDS: PARoxetine HCL 20 MG TAB PO SCH (08:27)
[2023-06-14] MEDS: BENZONATATE 100 MG CAPSULE PO SCH ×3 (08:27→20:50)
[2023-06-14] MEDS: FUROSEMIDE 40 MG/4 ML VIAL IV SCH (08:28)
[2023-06-14] MEDS: predniSONE 20 MG TAB PO SCH (08:28)
[2023-06-14 08:48] LABS: Basophils # (auto) 0.02 K/uL (0.00-0.20); Basophils % (auto) 0.1 %; Hypersegmented Neutrophils 1+; Immature Granulocytes # (auto) 0.08 K/uL (0.01-0.20); Immature Granulocytes % (auto) 0.6 %; Lymphocytes # (auto) 0.73 K/uL (1.20-3.40); Lymphocytes % (auto) 5.1 %; Monocytes # (auto) 0.46 K/uL (0.11-0.59); Monocytes % (auto) 3.2 %; Neutrophils # (auto) 12.99 K/uL (1.40-6.50); Poikilocytosis Present; Polychromasia 1+
[2023-06-14] MEDS: carvediloL 25 MG TAB PO SCH ×2 (09:51→16:57)
--- NOTE | 2023-06-14 10:28 | Nephrology Progress Note ---
Date of Service June 14, 2023 Assessment & Plan Admission and Anticipated Discharge Date Admission Date: June 11, 2023 Subjective Assessment & Plan (1) Hyponatremia: This is in the setting of respiratory failure. With her underlying COPD and very poor solid food nutrition and very very excessive fluid intake of almost 10 to 15 L/day she is at high risk of hyponatremia. She does have chronic mild hyponatremia as an outpatient. The current hyponatremia got really worse because of no solid food intake for the last 3 days and very excessive fluid intake. Change to lasix 40 po bid for now. stop iv lasix Na improving nicely with lasix iv and FFR. Continue same. More worried about her fluid intake after she goes home. can check BMP once daily now (2) Respiratory failure with hypoxia: Underlying COPD with superimposed CHF. Lasix plus underlying treatment for COPD. CXR from 06/[address] still shows Pl eff and Pulm edema S---still SOB but less so. less o2. Lot of urine. Slight hemoptysis earlier this AM. na from 117 to 131 now in 36 hrs. Physical Exam Physical Exam: less SOB and on less o2 Constitutional: Thin built chronically ill-appearing Respiratory: Bilateral rhonchi and wheezing extensively Cardiovascular: Regular rate and rhythm tachycardia. No edema Gastrointestinal (Abdomen): Soft nontender Skin: No rashes noted Results & Data Vital Signs (Past 12 Hours) Vital Signs Temp Pulse Pulse Resp BP Pulse Ox O2 Del Method 06/14/23 08:00 Nasal Cannula 06/14/23 08:24 36.7 C 66 18 173/73 H 95 Nasal Cannula 06/14/23 06:08 16 Nasal Cannula 06/14/23 03:18 36.5 C 79 18 174/76 H 98 Nasal Cannula 06/13/23 23:02 36.6 C 70 18 170/73 H 97 Nasal Cannula 06/13/23 22:49 67 06/13/23 22:40 18 95 Nasal Cannula O2 Flow Rate 06/14/23 08:00 2.5 06/14/23 08:24 2.5 06/14/23 06:08 3 06/14/23 03:18 3 06/13/23 23:02 3 06/13/23 22:49 06/13/23 22:40 3
--- NOTE | 2023-06-14 12:03 | Hospitalist Progress Note ---
Date of Service June 14, 2023 Assessment & Plan (1) Respiratory failure with hypoxia: (2) Pneumonia: (3) Acute hyponatremia: (4) Chest discomfort: (5) Elevated troponin: (6) Essential hypertension: (7) Dyslipidemia: (8) Pulmonary emphysema: Plan Plan 58-year-old lady with PMH of COPD, lung cancer s/p resection, HTN, depression/anxiety, GERD, HLD, tobacco abuse [reports quitting tobacco 3 days ago] who reports drinking alcohol very occasionally and having reaction with malt liquor (wine cooler) in the past presented to the ED 06/11 with complaint of worsening shortness of breath and chest heaviness. Patient reports drinking [place] wine coolers around [facility] last 2 day ago evening [employer], was okay on the Sunday evening, started having difficulty breathing throughout Sunday which improved by later evening but again was worsened with ?? 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 She is being managed for the following: Acute respiratory failure with hypoxia Acute exacerbation of COPD Right lower lobe pneumonia Concern for allergic reaction to wine coolers: Received epinephrine/Benadryl/Solu-Medrol in the ED with transient improvement then again worsened needing consideration for ICU/another dose of epinephrine. Sepsis POA:Likely secondary to RLL pneumonia. WBC/respiratory rate elevated at presentation. Lactate WNL. Patient came in with worsening breathing, was using accessory muscle at presentation, needed BiPAP and high flow oxygen/transition to ICU for close monitoring. Admitting CTA chest with RLL consolidation. Mild right hilar lymphadenopathy, 6-month CT chest recommended to ensure resolution. Emphysema noted. Linear d ensity in the left lung apex,monitor in follow-up CT chest. Patient was admitted to ICU for close monitoring at presentation, currently down to 4 L oxygen via nasal cannula, was downgraded to PCU on 06/13/2023. Wean down oxygen as tolerated, continue with antibiotic/ nebs/steroid. Taper steroid to stop in next few days. Patient reports small amount of hemoptysis since 06/13; chest x-ray obtained and personally reviewed; improvement in pulm edema. Hemoglobin is stable. Continue with antitussive therapy. Hold Lovenox and aspirin. Continue with provided with ceftriaxone. We will start the patient on Incruse inhaler daily at discharge. Patient will need pulmonology referral as outpatient for COPD management. Elevated troponin/likely type II NSTEMI:Troponin elevated at 90 at presentation, patient with some chest discomfort which could likely from respiratory distress retrospectively thinking. Now with no chest pain. Also her acute infection contributing to troponin elevation. EKG with no acute ST or T abnormalities. Echo with EF of 50 to 55%, LV function WNL, no regional wall motion abnormalities noted, small circumferential pericardial effusion noted. Cardiology on board, appreciate recommendation. Plan for Repeat limited echocardiogram circa to 06/18/2023 to reevaluate the small pericardial effusion Acute Severe hyponatremia:Admitting sodium of 118, patient drinks a lot of water every day. Patient advised to limit fluid intake to around 2 L a day. Sodium gradually improving, 136 today. Free fluid restriction of 1800 mL a day, nephrology on board, managing diuresis/sodium level. Other chronic medical conditions:HLD, psychiatric comorbidities, tobacco abuse-->> continue with/resume home meds as and when able. Nicotine patch as needed. DVT prophylaxis; SCDs. Lovenox on hold due to concern for hemoptysis Full code DispoPT OT ordered; awaiting evaluation Time spent evaluating patient, direct bedside care, chart review, placing orders, interpretation of diagnostic studies, discussion with consultants, patient, and family members, as well as other required patient management activities is 60 minutes. Please note the above document was generated using voice recognition software. It may contain grammatical, syntax or spelling errors. Any formal questions or concerns about the content, text or information contained within the body of this dictation should be directly addressed to the provider for clarification Admission and Anticipated Discharge Date Admission Date: June 11, 2023 Subjective Patient seen and examined at bedside. She reports that she is feeling much better. However, continues to have specks of blood in her sputum. No clots. Respiratory status remained stable. Review of Systems Review of Systems: All systems reviewed & are unremarkable except as noted in Subjective Physical Exam Physical Exam: GENERAL: Alert and oriented x3. NAD, on 3L NC O2, looks older than stated age. HEENT: No pallor, no icterus. Pupils equal, round and reactive to light. Oral mucosa moist. NECK: No JVD, no neck masses. HEART: S1 and S2 heard. Regular rate and rhythm. No murmur, no gallop. RESPIRATORY SYSTEM: Normal AP diameter. no accessory muscle use. Bilateral wheeze present. ABDOMEN: Soft, bowel sounds present, nontender, no distention. CENTRAL NERVOUS SYSTEM: No facial droop. Speech is clear. Obeys simple commands. Moves extremities. EXTREMITIES: No edema, no erythema seen. Results & Data Results & Data Vital Signs (Past 12 Hours) Vital Signs Temp Pulse Resp BP Pulse Ox O2 Del Method O2 Flow Rate 06/14/23 11:24 71 14 94 Nasal Cannula 3 06/14/23 08:00 Nasal Cannula 2.5 06/14/23 08:24 36.7 C 66 18 173/73 H 95 Nasal Cannula 2.5 06/14/23 06:08 16 Nasal Cannula 3 06/14/23 03:18 36.5 C 79 18 174/76 H 98 Nasal Cannula 3 Laboratory Results Laboratory Results WBC 14.28 K/ul (4.8-10.8) H 06/14/23 05:53 RBC 3.37 M/uL (4.20-5.40) L 06/14/23 05:53 Hgb 10.0 g/dl (12.0-16.0) L 06/14/23 05:53 POC Hgb 10.2 g/dl (12.0-16.0) L 06/11/23 22:19 Hct 29.3 % (37.0-47.0) L 06/14/23 05:53 POC Hct 30 % (37-47) L 06/11/23 22:19 MCV 86.9 fL (80.0-100.0) 06/14/23 05:53 MCH 29.7 pg (25.0-34.0) 06/14/23 05:53 MCHC 34.1 g/dL (32.0-36.0) 06/14/23 05:53 RDW Std Deviation 47.8 fL (36.4-46.3) H 06/14/23 05:53 RDW Coeff of Shanna 15.1 % (11.5-14.5) H 06/14/23 05:53 Plt Count 181 K/uL (130-400) 06/14/23 05:53 MPV 12.0 fL (9.4-12.4) 06/14/23 05:53 Immature Gran % (Auto) 0.6 % 06/14/23 05:53 Neut % (Auto) 91.0 % 06/14/23 05:53 Lymph % (Auto) 5.1 % 06/14/23 05:53 Gillespie % (Auto) 3.2 % 06/14/23 05:53 Eos % (Auto) 0.0 % 06/14/23 05:53 Baso % (Auto) 0.1 % 06/14/23 05:53 Neut # (Auto) 12.99 K/uL (1.40-6.50) H 06/14/23 05:53 Lymph # (Auto) 0.73 K/uL (1.20-3.40) L 06/14/23 05:53 Gillespie # (Auto) 0.46 K/uL (0.11-0.59) 06/14/23 05:53 Eos # (Auto) 0.00 K/uL (0.00-0.50) 06/14/23 05:53 Baso # (Auto) 0.02 K/uL (0.00-0.20) 06/14/23 05:53 Immature Gran # (Auto) 0.08 K/uL (0.01-0.20) 06/14/23 05:53 Hypersegmented Neuts 1+ 06/14/23 05:53 Polychromasia 1+ 06/14/23 05:53 Poikilocytosis Present 06/14/23 05:53 PT 10.3 Seconds (9.0-12.0) 06/13/23 10:25 INR 0.9 (0.9-1.1) 06/13/23 10:25 D-Dimer 1610 ug/L FEU (0-500) H* 06/11/23 05:40 POC pH 7.41 (7.35-7.45) 06/11/23 22:19 POC pCO2 43 mmHg (35-46) 06/11/23 22:19 POC pO2 62 mmHg (80-95) L 06/11/23 22:19 POC HCO3 28 lacy/L (19-24) H 06/11/23 22:19 POC Total CO2 29 mmol/L (24-31) 06/11/23 22:19 POC Base Excess 3.0 lacy/L (-9-1.8) H 06/11/23 22:19 ABG pH 7.32 (7.35-7.45) L 06/11/23 09:30 ABG pCO2 43 mmHg (35-46) 06/11/23 09:30 ABG pO2 71 mmHg (80-95) L 06/11/23 09:30 ABG HCO3 22 mmol/L (19-24) 06/11/23 09:30 POC ABG O2 Sat 91.0 % (90-95) 06/11/23 22:19 ABG O2 Saturation 94.4 % (90-95) 06/11/23 09:30 ABG Base Excess -3.9 mEq/L (-9-1.8) 06/11/23 09:30 Jack Test Pos (Pos) 06/11/23 09:30 VBG pH 7.31 (7.36-7.41) L 06/11/23 Unknown VBG pCO2 45 mmHg (38-50) 06/11/23 Unknown VBG pO2 59 mmHg 06/11/23 Unknown VBG HCO3 23 mmol/L 06/11/23 Unknown VBG O2 Saturation 87.5 % 06/11/23 Unknown VBG Base Excess -3.7 mEq/L 06/11/23 Unknown Oxygen Given 10 L 06/11/23 09:30 POC Sodium 124 mmol/L (135-144) L 06/11/23 22:19 Sodium 136 mmol/L (136-145) 06/14/23 05:53 POC Potassium 4.0 mmol/L (3.3-5.0) 06/11/23 22:19 Potassium 4.0 mmol/L (3.5-5.1) 06/14/23 05:53 Chloride 101 mmol/L (98-107) 06/14/23 05:53 Carbon Dioxide 32 mmol/L (21-32) 06/14/23 05:53 Anion Gap 3 (3-11) 06/14/23 05:53 BUN 36 mg/dl (6-23) H 06/14/23 05:53 Creatinine 0.99 mg/dl (0.6-1.2) 06/14/23 05:53 Est Cr Clr Drug Dosing 53.6 ml/min 06/14/23 05:53 Est GFR ( Amer) 73.3 ml/min 06/14/23 05:53 Est GFR (Non-Af Amer) 63.3 ml/min 06/14/23 05:53 BUN/Creatinine Ratio 36.4 (10-20) H 06/14/23 05:53 Glucose 127 mg/dl (70-99(Fasting)) H 06/14/23 05:53 Osmolality 257 mOsm/kg (280-300) L 06/11/23 09:31 Lactate 1.0 mmol/L (0.4-2.0) 06/11/23 06:22 Calcium 8.2 mg/dl (8.6-10.3) L 06/14/23 05:53 Phosphorus 4.3 mg/dl (2.5-4.9) D 06/13/23 06:27 Magnesium 2.0 mg/dl (1.7-2.4) 06/13/23 06:27 Total Bilirubin 1.9 mg/dl (0.2-1.0) H 06/11/23 05:40 AST 36 U/L (13-39) 06/11/23 05:40 ALT 25 U/L (7-52) 06/11/23 05:40 Alkaline Phosphatase 82 U/L (34-104) 06/11/23 05:40 Troponin I High Sens 78.9 pg/ml (0-14) H* 06/11/23 14:46 B-Natriuretic Peptide 2238 pg/ml (0-100) H 06/11/23 09:56 Total Protein 7.3 gm/dl (6.0-8.3) 06/11/23 05:40 Albumin 4.1 gm/dl (3.4-5.0) 06/11/23 09:31 Globulin 3.0 gm/dl (2.5-4.0) 06/11/23 05:40 Albumin/Globulin Ratio 1.4 (0.9-2) 06/11/23 05:40 Procalcitonin 0.29 ng/ml (0-0.5) 06/11/23 05:40 TSH 0.292 uIu/ml (0.300-4.500) L 06/11/23 14:46 Free T4 1.24 ng/dl (0.61-1.60) 06/11/23 14:46 Urine Color Yellow 06/11/23 11:51 Urine Appearance Clear (Clear) 06/11/23 11:51 Urine pH 5.0 (4.5-7.5) 06/11/23 11:51 Ur Specific [place] 1.014 (1.000-1.030) 06/11/23 11:51 Urine Protein Negative (Negative) 06/11/23 11:51 Urine Glucose (UA) Negative (Negative) 06/11/23 11:51 Urine Ketones Negative (Negative) 06/11/23 11:51 Urine Blood Trace (Negative) H 06/11/23 11:51 Urine Nitrite Negative (Negative) 06/11/23 11:51 Urine Bilirubin Negative (Negative) 06/11/23 11:51 Urine Urobilinogen Negative (Negative) 06/11/23 11:51 Ur Leukocyte Esterase 1+ (Negative) H 06/11/23 11:51 Urine WBC (Auto) 1-5 /hpf (0-5) 06/11/23 11:51 Urine RBC (Auto) 0-4 /hpf (0-4) 06/11/23 11:51 U Hyaline Cast (Auto) 1-5 /lpf (0-5) 06/11/23 11:51 U Epithel Cells (Auto) 10-20 /lpf (0-5) H 06/11/23 11:51 Urine Bacteria (Auto) Negative (Negative) 06/11/23 11:51 Urine Osmolality 171 mOsm/kg (500-800) L 06/11/23 11:51 Ur Random Sodium 33 mmol/L 06/11/23 11:51 Nasal Screen MRSA (PCR) Negative (Negative) 06/11/23 10:15 RADHA Screen NEGATIVE (NEGATIVE) 06/11/23 19:17 Adenovirus (PCR) Not Detected (NotDetected) 06/11/23 Unknown B. pertussis DNA (PCR) Not Detected (NotDetected) 06/11/23 Unknown B.parapertussis DNA PCR Not Detected (NotDetected) 06/11/23 Unknown C. pneumoniae DNA (PCR) Not Detected (NotDetected) 06/11/23 Unknown Coronavirus OC43 (PCR) Not Detected (NotDetected) 06/11/23 Unknown Coronavirus HKU1 (PCR) Not Detected (NotDetected) 06/11/23 Unknown Coronavirus 229E (PCR) Not Detected (NotDetected) 06/11/23 Unknown SARS-CoV-2 (PCR) Not Detected (NotDetected) 06/11/23 Unknown Coronavirus NL63 (PCR) Not Detected (NotDetected) 06/11/23 Unknown Human Metapneumovir PCR Not Detected (NotDetected) 06/11/23 Unknown Influenza Type A (PCR) Not Detected (NotDetected) 06/11/23 Unknown Influenza Type B (PCR) Not Detected (NotDetected) 06/11/23 Unknown M. pneumoniae (PCR) Not Detected (NotDetected) 06/11/23 Unknown Parainfluenza 1 (PCR) Not Detected (NotDetected) 06/11/23 Unknown Parainfluenza 2 (PCR) Not Detected (NotDetected) 06/11/23 Unknown Parainfluenza 3 (PCR) Not Detected (NotDetected) 06/11/23 Unknown Parainfluenza 4 (PCR) Not Detected (NotDetected) 06/11/23 Unknown RSV (PCR) Not Detected (NotDetected) 06/11/23 Unknown Entero/Rhino (PCR) Not Detected (NotDetected) 06/11/23 Unknown Blood Type A Positive 06/13/23 06:27 Antibody Screen NEGATIVE 06/13/23 06:27 Impressions Chest CTA 06/11/23 06:55 CHEST CTA for PULMONARY ARTERIES CT DOSE: 288.01 mGy.cm HISTORY: Shortness of breath. TECHNIQUE: Multiaxial CT images of the chest were performed following the intravenous administration of contrast to evaluate the pulmonary arteries. 3D/Maximal intensity projection images were also obtained. Sagittal and coronal reformations were also reviewed. A dose lowering technique was utilized adhering to the principles of ALARA. COMPARISON STUDY: Outside hospital chest CT 06/01/2021. FINDINGS: Severe calcified plaque at the distal thoracic aorta resulting in severe narrowing. This remains unchanged. Otherwise, there is a normal caliber thoracic aorta with no evidence for dissection. Questionable filling defect seen within the right lower lobe subsegmental pulmonary arteries on image 92 favors respiratory motion artifact. Otherwise, no additional filling defects within the pulmonary arteries to suggest a pulmonary embolus. Mild right hilar lymphadenopathy which has progressed. A dominant right hilar lymph node measures 11 mm in short axis diameter. No mediastinal or left hilar lymphadenopathy. There is a small right pleural effusion. There is a small pericardial effusion. The heart is mildly enlarged. Limited views the upper abdomen demonstrate a normal spleen and visualized adrenal glands. Retrograde opacification of contrast into the hepatic veins is noted. Normal caliber esophagus. Mild body wall edema. Prior left thoracotomy changes from a left upper lobectomy. Otherwise, no acute fractures identified within the chest. Consolidation within the right lower lobe posteriorly with additional patchy densities within the right lung and interlobular septal thickening. This favors a pneumonia. A superimposed asymmetric pulmonary edema could also have a similar appearance. There is progressive linear density within the left lung apex emphysema is noted. Punctate calcified granuloma within the left upper lung zone. IMPRESSION: 1. Questionable filling defect seen within the right middle lobe subsegmental pulmonary arteries favors motion artifact. Otherwise, no filling defects within the remaining pulmonary arteries to suggest a pulmonary embolus. 2. Consolidation within the right lower lobe posteriorly with additional smaller patchy airspace opacities within the right lung. This favors a pneumonia. There is also asymmetric interlobular septal thickening within the right lung with may represent superimposed asymmetric pulmonary edema. 3. Emphysema. 4. Small right pleural effusion and a small pericardial effusion. 5. The heart is enlarged. 6. Linear density within the left lung apex is progressed. Follow-up recommended to ensure stability/resolution. 7. Prior left upper lobectomy. 8. Mild right hilar lymphadenopathy this may be reactive. [address] follow-up recommended to ensure resolution. ACT 112: Positive. There are findings on this exam that require communication between the performing entity and the patient following Patient Test Result Information Act ([place] Act 112) guidelines. Electronically signed by: Bhavik Lowe M.D. 06/11/2023 7:51 AM Chest X-Ray 06/13/23 13:07 XR chest 1V portable CLINICAL HISTORY: Hemoptysis. COMPARISON STUDY: Chest CT and chest radiograph June 11, 2023. FINDINGS: There is no pneumothorax. Small right pleural effusion has slightly increased since prior exam. A small left pleural effusion is unchanged. Postoperative findings within the left hemithorax with volume loss are unchanged. Interstitial thickening is greater within the right lung. Right basilar opacity has slightly decreased. Cardiomediastinal silhouette is stable. IMPRESSION: 1. Persistent asymmetric interstitial thickening within the right lung. This favors asymmetric pulmonary edema. 2. Slight decrease in right basilar opacity. This could reflect pneumonia, alveolar pulmonary edema or pulmonary hemorrhage. 3. Slight increase in a small right pleural effusion. No change in a small left pleural effusion. ACT 112: Negative or not required by law. Electronically signed by: Kwame Weir M.D. 06/13/2023 2:04 PM (2) Pneumonia Laterality: right Lung location: lower lobe of lung Pneumonia type: due to unspecified organism Qualified Code(s): J18.9 - Pneumonia, unspecified organism (8) Pulmonary emphysema Emphysema type: centrilobular Qualified Code(s): J43.2 - Centrilobular emphysema
--- NOTE | 2023-06-14 14:40 | Fluoroscopy Report ---
MODIFIED BARIUM SWALLOW CLINICAL HISTORY: r/o aspiration COMPARISON STUDY: None. FLUOROSCOPY TIME: 1.29 minutes. Ka, r: 7.84 mGy. TECHNIQUE: A modified barium swallow was performed in conjunction with Speech Pathology. The patient ingested varying consistencies of barium containing material. Video fluoroscopy was performed. FINDINGS: No tracheal aspiration was identified with thin liquids, nectar thick liquids, pudding or c racker and pudding consistencies. Epiglottic inversion was normal. Laryngeal elevation was normal. Sw allowing mechanism was intact. There is possible esophageal dysmotility, suboptimally assessed on thi s exam. IMPRESSION: 1. No tracheal aspiration identified. Intact swallowing mechanism. For recommendations by Speech path ology to follow. 2. Possible esophageal dysmotility, suboptimally assessed on this exam. ACT 112: Negative or not required by law. Electronically signed by: Kwame Weir M.D. 06/14/2023 2:38 PM
[2023-06-14] MEDS: cefTRIAXone SODIUM 1,000 MG in DEXTROSE 5% 50 ML IV SCH (16:57)
[2023-06-14] MEDS: FUROSEMIDE 40 MG TAB PO SCH (16:58)
[2023-06-14] MEDS: clonazePAM 0.5 MG TAB PO PRN (20:49)
[2023-06-14] MEDS: ARIPiprazole 5 MG TAB PO SCH (20:50)
[2023-06-14] MEDS: TERAZOSIN HCL 1 MG CAP PO SCH (20:51)
[2023-06-15] MEDS: SODIUM CHLORIDE 0.65% NA SOLN 45 ML (OCEAN) SCH ×2 (05:00→15:01)
[2023-06-15 06:55] LABS: Basophils # (auto) 0.01 K/uL (0.00-0.20); Basophils % (auto) 0.1 %; Hematocrit (blood only) 31.8 % (37.0-47.0); Hemoglobin 11.1 g/dl (12.0-16.0); Immature Granulocytes # (auto) 0.06 K/uL (0.01-0.20); Immature Granulocytes % (auto) 0.5 %; Lymphocytes # (auto) 1.69 K/uL (1.20-3.40); Mean Corpuscular Hemoglobin 29.7 pg (25.0-34.0); Mean Corpuscular Hgb Conc 34.9 g/dL (32.0-36.0); Mean Platelet Volume 11.3 fL (9.4-12.4); Monocytes # (auto) 0.78 K/uL (0.11-0.59); Monocytes % (auto) 6.5 %; Neutrophils # (auto) 9.54 K/uL (1.40-6.50); Neutrophils % (auto) 78.9 %; Platelet Count 206 K/uL (130-400); Red Blood Count 3.74 M/uL (4.20-5.40); White Blood Count 12.08 K/ul (4.8-10.8)
[2023-06-15] MEDS: ALBUT/IPRATROP 3MG/0.5MG NEB 3 ML VIAL NEB SCH ×3 (07:08→14:57)
[2023-06-15 08:34] LABS: Potassium 3.8 mmol/L (3.5-5.1)
[2023-06-15 08:39] LABS: BUN Creatinine Ratio 34.4 (10-20); Creatinine Clr Calc Pharmacy 48.5 ml/min; Est GFR (African American) 79.1 ml/min; Est GFR (Non-African American) 68.2 ml/min
[2023-06-15] MEDS: PARoxetine HCL 20 MG TAB PO SCH (08:46)
[2023-06-15] MEDS: amLODIPine BESYLATE 5 MG TAB PO SCH (08:46)
[2023-06-15] MEDS: predniSONE 20 MG TAB PO SCH (08:46)
[2023-06-15] MEDS: LOSARTAN POTASSIUM 50 MG TAB PO SCH (08:47)
[2023-06-15] MEDS: CETIRIZINE HCL 10 MG TABLET PO SCH (08:47)
[2023-06-15] MEDS: FUROSEMIDE 40 MG TAB PO SCH (08:47)
[2023-06-15] MEDS: ATORVASTATIN 20 MG TAB PO SCH (08:47)
[2023-06-15] MEDS: BENZONATATE 100 MG CAPSULE PO SCH ×2 (08:47→14:12)
--- NOTE | 2023-06-15 09:38 | Nephrology Progress Note ---
Date of Service June 15, 2023 Assessment & Plan Admission and Anticipated Discharge Date Admission Date: June 11, 2023 Subjective Assessment & Plan (1) Hyponatremia: This is in the setting of respiratory failure. With her underlying COPD and very poor solid food nutrition and very very excessive fluid intake of almost 10 to 15 L/day she is at high risk of hyponatremia. She does have chronic mild hyponatremia as an outpatient. The current hyponatremia got really worse because of no solid food intake for the last 3 days and very excessive fluid intake. Continue lasix 40 po twice daily for Discharge Na now normal with lasix and FFR. Continue same. More worried about her fluid intake after she goes home. need to maintain about 1800 ml per day can check BMP once daily now BP is too high despite amlo 10 losartan 100 coreg 25 bid Terazosin 2 and lasix !! Add hydralazine 50 tid. (2) Respiratory failure with hypoxia: Underlying COPD with superimposed CHF. Lasix plus underlying treatment for COPD. CXR from 06/[address] still shows Pl eff and Pulm edema S---still SOB but less so. less o2. Lot of urine. Slight hemoptysis earlier this AM. na from 117 to 131 now in 36 hrs. Physical Exam Physical Exam: less SOB and on less o2 Constitutional: Thin built chronically ill-appearing Respiratory: Bilateral rhonchi and wheezing extensively Cardiovascular: Regular rate and rhythm tachycardia. No edema Gastrointestinal (Abdomen): Soft nontender Skin: No rashes noted Results & Data Vital Signs (Past 12 Hours) Vital Signs Temp Pulse Pulse Resp BP Pulse Ox O2 Del Method 06/15/23 07:16 36.9 C 64 21 183/77 H 100 Room Air, Nebulizer 06/15/23 07:08 74 16 93 Room Air 06/15/23 02:34 36.7 C 70 18 175/78 H 93 Nasal Cannula 06/14/23 22:05 71 O2 Flow Rate 06/15/23 07:16 06/15/23 07:08 06/15/23 02:34 2 06/14/23 22:05
[2023-06-15] MEDS: carvediloL 25 MG TAB PO SCH (10:03)
--- NOTE | 2023-06-15 11:08 | Discharge Summary ---
Date of Service June 15, 2023 Admission HPI Per Admitting Provider This is a 58 y/o female with a history of COPD, lung cancer s/p resection, HTN, depression/anxiety, GERD, dyslipidemia, and other history as outlined below who presented to the ED today with dyspnea, cough, and fatigue x 2 days. Pt reports being in her usual state of health last week. On Sunday (three days ago), she drank a few [place] wine [place] [facility] [place] okay initially but on Sunday, she developed shortness of breath and chest heaviness. She tried her inhaler and a nebulizer but felt like these made her worse. She slept all day Sunday, minimal solid food intake. Sunday evening, she felt a little better. Sunday (yesterday) she felt okay initially, was able to eat a small amount of soup. She did continue to push fluids as able. By Sunday evening, feeling worse again. Tried another neb but felt worse after with more chest heaviness and dyspnea. Overnight, felt like she was worsening so she came to the ED early this morning for evaluation. Found to be markedly hypoxic in triage with a Pox of 54% on room air. Placed on non-rebreather with improvement to the 90s. Has gradually been transitioned to high-flow via NC and then OxyMask. Received epinephrine, dexamethasone, diphenhydramine, and famotidine for probable allergic reaction to the wine coolers she drank before current symptoms started. Initially, seemed to stabilize. However, sats then dropped again to the mid 80s on 10L High Flow so a second dose of epinephrine was given and pt started on a DuoNeb with improvement of sats back to the low 90s. She notes ongoing dyspnea, increased work of breathing, chest tightness and heavy feeling. Over the weekend, she has also noted chills, sweats, nausea, vomiting, and a non-productive cough. She denies documented fever, hemoptysis, rash or hives. She reportedly had a similar reaction to drinking malt liquor several years ago. Admission Exam Per Admitting Provider Constitutional: awake, alert, increased work of breathing but not in distress Eyes: + anicteric sclerae Neck: trachea midline Respiratory: + uses accessory muscles, + cough and + tachypneic Auscultation: + diminished lung sounds and + wheezes Cardiovascular: Rate/Rhythm: regular rhythm and + tachycardic Vessels: radial pulses present Gastrointestinal (Abdomen): Inspection/Auscultation: normal bowel sounds; abdomen not distended Percussion/Palpation: abdomen soft Musculoskeletal: Head/Neck/Chest: normocephalic, head atraumatic and neck supple Skin: no jaundice Neurologic: moves all extremities; no focal motor deficits and not confused Psychiatric: A+Ox3, euthymic affect Principal Diagnosis Pneumonia Hyponatremia Discharge Exam GENERAL: Alert and oriented x3. NAD, on 3L NC O2, looks older than stated age. HEENT: No pallor, no icterus. Pupils equal, round and reactive to light. Oral mucosa moist. NECK: No JVD, no neck masses. HEART: S1 and S2 heard. Regular rate and rhythm. No murmur, no gallop. RESPIRATORY SYSTEM: Normal AP diameter. no accessory muscle use. Bilateral wheeze present. ABDOMEN: Soft, bowel sounds present, nontender, no distention. CENTRAL NERVOUS SYSTEM: No facial droop. Speech is clear. Obeys simple commands. Moves extremities. EXTREMITIES: No edema, no erythema seen. Discharge Data Allergies Allergy/AdvReac Type Severity Reaction Status Date / Time Bactrim Allergy Intermediate HIVES Verified 07/26/15 07:15 Sulfa (Sulfonamide Allergy Intermediate BACTRIM- Verified 08/01/21 10:17 Antibiotics) HIVES sulfamethoxazole Allergy Intermediate HIVES Verified 08/01/21 10:17 trimethoprim Allergy Intermediate HIVES Verified 08/01/21 10:17 erythromycin base Allergy Unknown Verified 08/01/21 10:17 metaxalone Allergy Unknown Verified 08/01/21 10:17 morphine Allergy Unknown . Verified 08/01/21 10:17 neomycin Allergy Unknown Verified 08/01/21 10:17 Quinolones Allergy Unknown Verified 08/01/21 10:17 tetracycline Allergy Unknown Verified 08/01/21 10:17 amoxicillin [From Augmentin] Allergy Verified 08/01/21 10:17 clavulanic acid Allergy Verified 08/01/21 10:17 [From Augmentin] umeclidinium Allergy Verified 08/01/21 10:17 [From Anoro Ellipta] vilanterol Allergy Verified 08/01/21 10:17 [From Anoro Ellipta] moxifloxacin AdvReac Unknown hives Verified 08/01/21 10:17 Consultations 06/11/23 07:33 ED Decision to Admit Stat 06/11/23 07:43 Consult Nephrology Routine 06/11/23 08:26 Consult Parts Delivery Driver Routine 06/11/23 10:36 Consult Cardiology Routine Ordered Studies 06/11/23 06:55 CT angio chest PE protocol Stat 06/14/23 11:00 FL video swallow Routine Hospital Course (1) Respiratory failure with hypoxia: (2) Pneumonia: (3) Acute hyponatremia: (4) Chest discomfort: (5) Elevated troponin: (6) Essential hypertension: (7) Dyslipidemia: (8) Pulmonary emphysema: Plan 58-year-old lady with PMH of COPD, lung cancer s/p resection, HTN, depression/anxiety, GERD, HLD, tobacco abuse [reports quitting tobacco 3 days ago] who reports drinking alcohol very occasionally and having reaction with malt liquor (wine cooler) in the past presented to the ED 06/11 with complaint of worsening shortness of breath and chest heaviness. Patient reports drinking [place] wine coolers around [facility] last 2 day ago evening [employer], was okay on the Sunday evening, started having difficulty breathing throughout Sunday which improved by later evening but again was worsened. On presentation to the ED, patient was given epinephrine/Benadryl and Solu- Medrol due to concern for allergic reaction to wine coolers. CTA of the chest showed consolidation within right lower lobe posteriorly and additional small patchy air space opacities within the right lung. She was found to have severe hyponatremia with sodium of 118. Patient was admitted to ICU for closer monitoring. She was started on antibiotics, steroids and [id number] DuoNebs for COPD exacerbation. Her oxygen requirement down trended throughout the hospitalization. Patient underwent VFSS to rule out aspiration. Patient was saturating in room air at the time of the discharge. She had few episodes of hemoptysis which resolved at the time of discharge. Her sodium improved with fluid restriction and IV Lasix. Nephrology was on board for comanagement. At discharge, she was prescribed following medication for COPD: Cefdinir (antibiotic) 300 mg twice a day for 3 more days. Prednisone 40 mg once a day for 3 days Incruse inhaler to be used once a day for long-term care of COPD. She was also prescribed following medication for high blood pressure. Hydralazine 50 mg 3 times a day Terazosin 1 mg once a day Increase Lasix to 20 mg twice a day. Patient was instructed to limit fluid intake to 1800 cc mL. Patient to follow-up with PCP in 1 week for repeat BMP to check on kidney function and sodium level. Patient to get pulmonology referral for long-term management of COPD. She also needs 6-month CT chest to ensure resolution of hilar lymphadenopathy. Please note the above document was generated using voice recognition software. It may contain grammatical, syntax or spelling errors. Any formal questions or concerns about the content, text or information contained within the body of this dictation should be directly addressed to the provider for clarification Total Time Total Time Spent Total Time Spent (In Minutes): 45 Total Time Includes: Examination of the Patient, Discharge Planning, Medication Reconciliation, Communication With Other Providers and Other Discharge Plan Discharge Items Patient Disposition: Home - Self-Care Reason For Visit: RESPIRATORY FAILURE,HYPONATREMIA Discharge Diagnosis: Pneumonia Hyponatremia Activity: Resume your previous activity Non-emergency contact: Primary Care Provider Call non-emergency contact if: you have any medication questions Follow-up/Referrals: Saadia Alex PA-C [Primary Care Provider] - (Date & Time 06/19/2023 9:40 AM Provider Seng Arias MD Department [facility] ) Diet: Regular Addtl Attending Provider Instructions: You were admitted to the hospital due to shortness of breath. The likely cause for the shortness of breath is COPD exacerbation/emphysema. You are prescribed following medications: 1) Cefdinir (antibiotic) 300 mg twice a day for 3 more days. 2) Prednisone 40 mg once a day for 3 days You were started on Incruse inhaler to be used once a day for long-term care of COPD. If your insurance does not cover for it; discussed with your primary care doctor regarding prescription of alternative agent. You will also need a pulmonology referral for management of COPD with your PCP. Also, discussed with your PCP regarding use of medication to help you quit smoking. You are prescribed saline mist to be used on the nostrils every 6 hours as needed to keep up your nares moist. You were found to have low sodium during the hospitalization. Please keep your fluids intake to half a gallon a day ( 1800 ml). This includes water, tea, coffee or soda. Repeat BMP in 1 week with your primary care doctor to check on the kidney function and sodium level You were found to have high blood pressure during your hospitalization. You were also prescribed following medications: 1) Hydralazine 50 mg 3 times a day 2) Terazosin 1 mg once a day 3) Increase Lasix to 20 mg twice a day. Take it once in the morning with breakfast and once at lunch. The dose can be increased up to 40 mg twice a day as recommended by the dba manager depending on your kidney function and sodium level. Admitting CTA chest showed RLL consolidation. Mild right hilar lymphadenopathy,6-month CT chest recommended to ensure resolution. Stand-Alone Forms: [facility] [employer], Smoking Cessation Medications and DC Order Prescriptions: New prednisone 20 mg Tablet 40 mg PO DAILY 3 Days Qty: 6 0RF terazosin 1 mg Capsule 2 mg PO HS Qty: 30 0RF benzonatate 100 mg Capsule 100 mg PO TID PRN (Reason: cough) Qty: 20 0RF hydralazine 50 mg Tablet 50 mg PO TID Qty: 90 0RF Saline Mist 0.65 % Aerosol,[place] 2 spray NA Q6H Qty: 45 0RF cefdinir 300 mg capsule 300 mg PO BID 3 Days Qty: 6 0RF Incruse Ellipta 62.5 mcg/actuation blister with device 1 inh inhalation DAILY Qty: 30 0RF Continued albuterol sulfate [Ventolin HFA] 90 mcg/actuation HFA aerosol inhaler 2 puff inhalation Q4H PRN (Reason: shortness of breath ,coughing or wheezing) Qty: 18 5RF aspirin 81 mg tablet 81 mg PO DAILY clonazepam 0.5 mg tablet 0.5 mg PO BID PRN (Reason: Anxiety) aripiprazole [Abilify] 5 mg tablet 5 mg PO HS cetirizine 10 mg tablet 10 mg PO DAILY losartan 50 mg tablet 50 mg PO BID amlodipine 10 mg tablet 10 mg PO DAILY carvedilol 25 mg Tablet 25 mg PO BID Rx Instructions: must administer with a meal/food atorvastatin 20 mg Tablet 20 mg PO DAILY paroxetine HCl 40 mg Tablet 40 mg PO DAILY albuterol sulfate 2.5 mg /3 mL (0.083 %) solution for nebulization 2.5 mg INH Q4H PRN (Reason: shortness of breath or wheezing) Qty: 180 3RF Changed furosemide 20 mg Tablet 20 mg PO BID Qty: 60 0RF Discharge Orders: Discharge Order (Routine); Ordered 06/15/23 Ordered By: Fritz Heard Admission Data Admit Date/Time: 06/11/23 08:16 Attending Provider: Fritz Heard Admit Provider: David Pace Primary Care Provider: Saadia Alex Other Providers: Vinh Pham ; Brad Johnson ; Ralf Kim ; David Pace Other Interventions: Discharge Summary Assessment (RN) Last Done: 06/15/23 10:59
[2023-06-15] MEDS: hydrALAZINE TAB 50 MG TAB PO SCH ×2 (11:09→15:01)
[2023-06-15] MEDS: clonazePAM 0.5 MG TAB PO PRN (11:12)
== END 2023-06-15 15:36 | disposition home or self-care (01) | DRG 871 ==
LOC: ED 05:23 → 1E 08:16 → SUATTDRO 08:16 → 1E 09:57 → 2S 06-12 18:15

== ENCOUNTER 2023-10-21 06:54 | Inpatient (IN) ==
--- OUTSIDE RECORDS SUMMARY | 2023-10-21 07:00 | External Medical Summary | Summary of Care ---
Author Name Unknown Organization [facility] Address [address] [place] [address] Phone [phone] Care Team Providers Care Office Associate Name Role Phone Stefany Benitez MD Primary Care Provid er Reason for Visit * Reason Onset Date Comments Medication Refill 10/19/2023 Encounter Details Date Type Department Care Team (Late st Contact Info) Description 10/19/2023 [employer]ributor Telephone Care Coordination and Integration [address], [place] [id number] Melissa Pressley, WILMA [address] [place] [address] Medication Refill Allergies Active Allergy Reactions Criticality Noted Date Comments Amoxicillin-Pot Clavulanate Nausea/vomiting Low 02/28/2012 Umeclidinium-Vilanterol 01/22/2017 Body swelling Moxifloxacin Hcl In Nacl Hives Low 12/13/2010 Sulfa Antibiotics Hives Low 04/17/2005 Erythromycin Base Nausea/vomiting Low 01/08/1998 Morphine And Related Rash Low 07/22/2012 Tolerated Percocet Neomycin Other (Please comment) Low 06/16/1998 local reaction to eardrops Metaxalone Unknown 09/01/2015 Budesonide-Formoterol Fumarate 01/22/2017 Increased wheezing and swelling Tetracycline Nausea/vomiting Low 01/08/1998 Sertraline Hcl 02/13/2018 Diarrhea documented as of this encounter (statuses as of 10/19/2023) Medications Medication Sig Dispensed Refills Start Date End Date Status albuterol (PROVENTIL HFA) 108 (90 BASE) MCG/ACT inhaler Inhale 2 Puffs by mouth every 6 hours as needed. 0 Active albuterol sulfate (PROVENTIL) (2.5 MG/3ML) 0.083% nebulizer solution Inhale 1 Vial via nebulizer every 4 hours as needed for Wheezing. 120 Vial 11 07/05/2016 Active clonazePAM (KLONOPIN) 0.5 MG TabletIndications:Dep ression with anxiety Take 1 Tab by mouth 2 times a day as needed for Anxiety. 60 Tab 0 08/20/2017 Active Aspirin 81 MG Tablet Take 1 Tab by mouth daily. 34 Tab 5 01/18/2018 Active ARIPiprazole (ABILIFY) 5 MG Tablet Take 1 Tab by mouth daily. 30 Tab 0 01/08/2020 Active Cetirizine HCl 10 MG Capsule Take 1 Capsule by mouth in the morning. 0 Active Zoster Vac Recomb Adjuvanted 50 MCG/0.5ML Intramuscular Suspension Reconstituted (Shingrix)Indications :Need for vaccination for zoster Inject 0.5 mL into a large muscle now and repeat dose in 60 to 180 days 1 Each 1 04/21/2021 Active Acetaminophen ER 650 MG Oral Tablet Extended Release Take 1 Tablet by mouth every 8 hours as needed. 0 Active PARoxetine HCl 40 MG Oral Tablet (pAXil) Take 1 Tablet by mouth in the morning. 0 Active Benzonatate 100 MG Oral Capsule (Tessalon Perles) Take 1 Capsule by mouth 3 times a day as needed for Cough. 0 Active Umeclidinium [place] 62.5 MCG/ACT Inhalation Aerosol Powder Breath Activated (INCRUSE ellipta) Inhale 1 Puff by mouth in the morning. 0 Active amLODIPine Besylate 10 MG Oral Tablet (Norvasc)Indications: HTN, goal below 140/90 TAKE 1 TABLET BY MOUTH ONCE DAILY 90 Tablet 3 06/22/2023 Active Terazosin HCl 2 MG Oral Capsule Take 1 Capsule by mouth at bedtime. 90 Capsule 3 07/04/2023 Active Furosemide 20 MG Oral Tablet (Lasix) One tablet by mouth 2 times per day in the morning and early afternoon. 180 Tablet 3 07/04/2023 Active hydrALAZINE HCl 50 MG Oral Tablet (Apresoline) Take 1 Tablet by mouth in the morning and 1 Tablet at noon and 1 Tablet before bedtime. 252 Tablet 3 07/04/2023 Active Losartan Potassium 50 MG Oral Tablet (Cozaar)Indications:H TN, goal below 140/90 TAKE 1 TABLET BY MOUTH TWICE DAILY 180 Tablet 3 07/05/2023 Active Atorvastatin Calcium 20 MG Oral Tablet (Lipitor)Indications: Dyslipidemia, goal LDL below 70 TAKE 1 TABLET BY MOUTH ONCE DAILY 90 Tablet 3 07/30/2023 Active Cephalexin 500 MG Oral Capsule Take 4 caps 1 hour prior to dental appointment. 4 Capsule 0 08/21/2023 Active Vitamin D3 1.25 MG (88953 UT) Oral CapsuleIndications:Ag e-related osteoporosis without current pathological fracture,Hypovitamino sis D Take 1 Capsule by mouth once a week. 12 Capsule 1 09/18/2023 12/17/2023 Active Alendronate Sodium 70 MG Oral Tablet (Fosamax)Indications: Age-related osteoporosis without current pathological fracture,Hypovitamino sis D Take 1 Tablet by mouth once a week. with 8 oz. water 30 minutes before first meal of the day. Remain upright for 30 min after taking tablet. 15 Tablet 3 09/18/2023 Active Carvedilol 25 MG Oral Tablet (Coreg)Indications:Ab dominal aortic atherosclerosis (HCC),Palpitations,Hy pertension goal BP (blood pressure) < 140/90 TAKE ONE TABLET BY MOUTH IN THE MORNING AND ONE BEFORE BEDTIME 180 Tablet 3 10/03/2023 Active Cefdinir 300 MG Oral Capsule (Omnicef)Indications: Moderate COPD (chronic obstructive pulmonary disease) (HCC) Take 1 Capsule by mouth in the morning and 1 Capsule before bedtime. Do all this for 7 days. For 10 days.. 14 Capsule 0 10/19/2023 10/26/2023 Active predniSONE 20 MG Oral Tablet (Deltasone)Indication s:Moderate COPD (chronic obstructive pulmonary disease) (HCC) Take 2 Tablets by mouth in the morning for 5 days. 10 Tablet 0 10/19/2023 10/24/2023 Active documented as of this encounter (statuses as of 10/19/2023) Active Problems Problem Noted Date Diagnosed Date Centrilobular emphysema 09/18/2023 Age-related osteoporosis wit hout current pathological fracture 09/18/2023 Dysplasia of cervix, low grade (LIZETTE 1) Overview: Repeat pap 2023 Postmenopausal status, age-related 05/01/2023 Dyslipidemia, goal LDL below 70 05/01/2022 History of lobectomy of lung 05/01/2022 Major depressive disorder, recurrent, moderate 0 04/25/2022 Anxiety, generalized 04/25/2022 Bipolar disorder 04/25/2022 Hypertension goal BP (blood pressure) < 140/90 0 06/01/2021 Overview: Pt stated she recently started on HTN meds. 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 Heterozygous factor V Leiden mutation 09/30/2014 Fibroadenoma of breast 03/22/2012 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 Condyloma acuminatum Moderate COPD (chronic obstructive pulmonary dis ease) Overview: Dr Peoples Gastroesophageal reflux disease without esophagi tis Depression with anxiety documented as of this encounter (statuses as of 10/19/2023) Resolved Problems Problem Noted Date Diagnosed Date Resolved Date Palpitations 11/25/2015 08/16/2017 Malignant neoplasm of upper lobe of left lung 09/10/20 15 07/26/2023 Cancer Staging:Clinical stage from 09/10/2015:Stage IA(T1a, N0, M0) - Signed by Boris Miller MD on 09/10/2015 Pathologic:Stage IA(T1a, N0, cM0) - Signed by Boris Miller MD on 11/02/2015 Overview: Surgery Date: 09/10/15 Operation: Left VATS (thoracoscopy) -- upper lobe diagnostic wedge resection Left thoracotomy -- completion of upper lobectomy and miriam Nodule of left lung 08/17/2015 09/10/20 15 DVT prophylaxis 10/02/2014 10/23/2014 Screening cholesterol level 03/06/2013 08/16/2017 ADVANCE DIRECTIVE INFORMATION 11/27/2006 11/25/2015 Overview: No, Advance Directive brochure offered , patient declined she has information. BENIGN JILLIAN SKIN EAR 04/26/2004 11/25/19 16 Primary hypercoagulable state 12/16/2003 11/25/2015 Abnormal Papanicolaou smear of vagina and vaginal HPV 04/29/2003 11/25/2015 Overview: ICD-10 update of inactive term Palpitations 03/07/1996 11/25/2015 Depression 08/16/2017 TEMPOROMANDIBULAR JOINT DISO RDERS, UNSPECIFIED 11/25/2015 Tobacco use disorder 016 Mitral valve disorder 2015 INFORMATION 04/26/2004 documented as of this encounter (statuses as of 10/19/2023) Immunizations Name Administration Dates Next Due COVID-19 mRNA, LNP-s, No Pre serve, 2-Dose Series (Moderna) 01/20/2021,12/23/2020 Pneumococcal Conjugate Vacci ne, 20-valent ([id number]) 05/01/2023 Pneumococcal Polysaccharide PPV23 (Pneumovax) 10/09/2015 Seasonal Influenza Virus Vac cine, Unspecified Formulation 07/19/2018 Seasonal Influenza, PF, 6 M & above, IM , (FluLaval or Fluzone) 07/21/2022,06/17/2019 Seasonal Influenza, Quadriva lent Hd (Fluzone Hd) 06/19/2023 Seasonal Influenza, Quadriva lent, No Preserve, IM 07/03/2020,07/19/2016 Seasonal Influenza, Split, I IV3, With Preserve, Inj 08/01/2017,09/16/2015,08/10/2009 TDAP (age 10 and older)(Boostrix) 10/13/2009 documented as of this encounter Social History Tobacco Use Types Packs/Day Years Used Date Smoking Tobacco: Former Cigarettes 1 39 1 984 - 04/24/2023 Passive Smoke Exposure: Past Smokeless Tobacco: Never Comments:boyfriend smokes, m om smokes Alcohol Use Standard Drinks/Week Comments Not Currently 0 (1 standard drink = 0.6 oz pur e alcohol) 2 drinks every 6-12 month PHQ-2 Answer Date Recorded PHQ Adult Total Score 0 09/27/2023 Hunger Vital Sign Answer Date Recorded Within the past 12 months, y ou worried that your food would run out before you got the money to buy more. Never true 09/27/20 23 Within the past 12 months, t he food you bought just didn't last and you didn't have money to get more. Never true 09/27/2023 Sex and Gender Information Value Date Recorded Sex Assigned at Female 11/13/2019 2:26 PM EST Gender Identity Female 11/13/2019 2:26 PM EST Sexual Orientation Straight 11/13/2019 2: 26 PM EST Job Start Date Occupation Industry Not on file Not on file Not on file documented as of this encounter Functional Status Functional Status Response Date of Assess ment Are you deaf or do you have serious difficulty h earing? No 09/11/2015 Are you blind or do you have serious difficulty seeing, even when wearing glasses? No 09/11/2015 Do you have serious difficul ty walking or climbing stairs? (5 years old or older) No 09/11/2015 Do you have difficulty dress ing or bathing? (5 years old or older) No 09/11/2015 Because of a physical, menta l, or emotional condition, do you have difficulty doing errands alone such as visiting a doctor s office or shopping? (15 years old or older) No 09/11/20 15 Cognitive Status Response Date of Assessm ent Because of a physical, menta l, or emotional condition, do you have serious difficulty concentrating, remembering, or making decisions? (5 years old or older) No 09/11/2015 documented as of this encounter Miscellaneous Notes * Telephone Encounter - Brent Nichols MD - 10/19/2023 10:47 AM EST Antibiotic and steroid sent to [facility] in [place]. Brent Nichols MD * Telephone Encounter - Melissa Pressley RN - 10/19/2023 10:17 AM EST Provider, S: Patient requesting a COPD rescue kit O: Patient states she has had sinus congestion for the past 2 days Patient states this morning the congestion has started going to her chest Patient denies fever, is having some increased SOB & wheezing Has a cough, but is not able to cough anything up Patient has not tested for COVID, no exposure as far as she knows A: Phone Follow Up P: Please send medication to [facility] in [place] I encouraged patient to drink fluids, use neb tx every 4 hours, take Mucinex twice a day, go to ER with worsening symptoms Melissa Pressley RN, BSN, [place] [address] [facility] [place] [phone] documented in this encounter Plan of Treatment Upcoming Encounters Date Type Department Care Team (Late st Contact Info) Description 10/19/2023 3:00 PM EST Office Visit Nephrology, [facility] [address] [place] [address] Brad Johnson MD [address] [facility] [place] [address] 11/14/2023 4:00 PM EST Laboratory Laboratory, [place] [address] [place] [address] [facility] [address] [place], [place] [id number] 11/19/2023 3:40 PM EST Office Visit [facility] [address] [facility] [place] [address] Stefany Benitez MD [address] [place] [address] 04/07/2024 4:15 PM EDT Imaging Radiology [facility] 1st Floor, [place] [address] [place] [address] 08/04/2024 10:00 AM EST Office Visit Gynecology/Obstetrics [facility] [address] [place] [address] Nathalia Guerrero PA-C [address] [place] [address] Scheduled Procedures Name Priority Associated Diagnoses Date/Ti me COLONOSCOPY FLEXIBLE PROXIMA L DIAGNOSTIC Recall Encounter for screening colonoscopy Health Maintenance Due Date Last Done Comments Hepatitis B (1 of 3 - 3-dose series) 1966 Alpha-1 Antitrypsin 1984 Hepatitis C Screening 1984 Cologuard 2011 Fecal Occult Blood Test 2011 Sigmoidoscopy 2011 Zoster Vaccines (1 of 2) 2016 DTaP,Tdap,and Td Vaccines (3 - Td or Tdap) 10/13/2019 10/13/2009, 07/17/2002, 02/28/1979 COVID-19 Vaccine (3 - season) 2023 01/20/2021, 12/23/2020 Mammogram 04/27/2024 04/27/2023, 03/2023, 04/04/2022, Additional history exists O2 ASSESSMENT COMPLETED IN PAST YEAR FOR COPD 09/18/2024 09/18/2023 Depression Screening 09/27/2024 09/27/2023, 11/25/19 16 GFR 10/13/2024 10/13/2023, 11/2023, 09/15/2023, Additional history exists DXA Scan 06/05/2025 06/05/2023 Pap Smear 05/01/2026 05/01/2023, 04/01, 02/06/2017, Additional history exists Colonoscopy 08/03/2026 08/03/2016, 08/03/2016 Colorectal Cancer Screening 08/03/2026 Albumin/Creatinine Ratio 10/13/2026 10/13/2023, 01/2023 Cervical Cancer Screening 05/01/2028 HPV/Co-Test 05/01/2028 05/01/2023 *COPD SEVERITY VERIFIED BY PFT Addressed 08/01/2017 (Done elsewhere) Overridden with the intention of not completing the topic Pneumococcal Vaccine: Pediatrics (0 to 5 Years) and At-Risk Patients (6 to 64 Years) Completed 05/01/2023, 10/09/2015 VITAMIN D LEVEL ONCE IN A LIFETIME-USE SMARTSET# [id number] Completed 05/05/2023, 08/16/2017, 12/20/2016 Influenza Vaccine (FLU shot) Completed 06/19/2023, 07/21/2022, 07/03/2020, Additional history exists GARDASIL-HPV IMMUNIZATION SERIES Aged Out No longer eligible based on patient's age to complete this topic MENINGOCOCCAL (MENACTRA/MENVEO) Aged Out No longer eligible based on patient's age to complete this topic documented as of this encounter Medical Devices Not on filedocumented as of this encounter Visit Diagnoses Diagnosis Moderate COPD (chronic obstructive pulmonary disease) (HCC)- Primary Chronic airway obstruction, not elsewhere classified documented in this encounter Advance Directives Latest Code Status on File Code Status Date Activated Date Inactivated Comments Full Code 09/11/2015 11:44 AM 09/16/2015 7:31 PM Th is order reflects the patients wishes and were consensually agreed upon. Question Answer Comments Discussion of Advance Directives occurred with: Not Discussed Does the patient have a Living Will? No Does the patient have Health Care Power of Bindery Machine Operator? No Care Teams Office Associate Relationship Specialty Start Date End Date Stefany Benitez MD [address] [facility] [place] [address] PCP - General Family Medicine 04/25/22 documented as of this encounter
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
--- OUTSIDE RECORDS SUMMARY | 2023-10-21 07:00 | External Medical Summary | Summary of Care ---
Author Name Unknown Organization [facility] Address [address] [place] [address] Phone [phone] Care Team Providers Care Sap Fico Business Analyst Name Role Phone Stefany Benitez MD Primary Care Provid er Reason for Visit * Reason Onset Date Comments Medication Refill 10/19/2023 Encounter Details Date Type Department Care Team (Late st Contact Info) Description 10/19/2023 Undercollar Baster Telephone Care Coordination and Integration [address], [place] [phone] Melissa Pressley, WILMA [address] [place] [address] Medication Refill Allergies Active Allergy [...] as needed for Cough. 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 Brent Nichols MD * Telephone Encounter - [...] P: Please send medication to [facility] in [place] I encouraged patient to drink fluids, use neb tx every 4 hours, take Mucinex twice a day, go to ER with worsening symptoms Melissa Pressley RN, BSN, [place] [address] [address] [facility] [address] documented in this encounter Plan of Treatment Upcoming Encounters Date Type Department Care Team (Late st Contact Info) Description 10/19/2023 3:00 PM EST Office Visit Nephrology, [facility] [place] [address] [place] [address] Brad Johnson MD [address] [facility] [place] [address] 11/14/2023 4:00 PM EST Laboratory Laboratory, [place] [address] [place] [address] [facility] [address], [place] [phone] 11/19/2023 3:40 PM EST Office Visit [facility] [address] [place] [facility] [place] [address] Stefany Benitez MD [address] [place] [address] 04/07/2024 4:15 PM EDT Imaging Radiology [facility] 1st Floor, [place] [address] [place] [address] 08/04/2024 10:00 AM EST Office Visit Gynecology/Obstetrics [facility] [address] [place] [address] Nathalia Guerrero PA-C [address] [place] [address] Scheduled Procedures Name Priority Associated Diagnoses Date/Ti [...] D LEVEL ONCE IN A LIFETIME-USE SMARTSET# [id number] Completed 05/05/2023, 08/16/2017, 12/20/2016 Influenza Vaccine (FLU [...] the patient have Health Care Power of Kelly Machine Operator? No Care Teams Sap Fico Business Analyst Relationship Specialty Start Date End Date Stefany Benitez MD [address] [place] [facility] [place] [address] PCP - General Family Medicine 04/25/22 documented as of this encounter
--- OUTSIDE RECORDS SUMMARY | 2023-10-21 07:01 | External Medical Summary ---
Author Name Unknown Address Unknown Organization K01:[facility] [place] [address] [place] [address] Laboratory Report Ordering Provider Test Date Status LEANDER KEVIN 10/13/2023 08:23:05 Final Normal: <30 mg/g creatinine< br/>High: 30-300 mg/g creatinine
Very High: >300 mg/g creatinine
Nephrotic: >2200 mg/g creatinine Observation Date Value Abnormality Reference (Units) Status Albumin, Urine 10/13/2023 08:23:05 <1.20 (mg/dL) Final Creatinine, Urine 10/13/2023 08:23:05 21 (mg/dL) Final ALBUMIN/CREATININE RATIO, HIDE 10/13/2023 08:23:05 Uninterpretable Albumin/Creatinine ratio due to very low albumin and creatinine values. <30 (mg/g Creat) Final Performing Location [facility] [place] [facility] [address] [place] [address]
--- OUTSIDE RECORDS SUMMARY | 2023-10-21 07:01 | External Medical Summary | Summary of Care ---
Author Name Unknown Organization [facility] Address [address] [place] [address] Phone [phone] Care Team Providers Care Heat Treat Inspector Name Role Phone Stefany Benitez MD Primary Care Provid er Reason for Visit * Reason Comments Outpatient Testing Encounter Details Date Type Department Care Team (Late st Contact Info) Description 10/02/2023 4:00 PM EST Laboratory Laboratory, [place] [address] [place] [phone] [place], [facility] [address] [place] [address] Decreased GFR Allergies Active Allergy Reactions Criticality Noted Date [...] as of this encounter (statuses as of 10/02/2023) Medications Medication Sig Dispensed Refills Start Date End Date Status albuterol (PROVENTIL HFA) 108 (90 BASE) MCG/ACT inhaler Inhale 2 Puffs by mouth every 6 hours as needed. 0 Active albuterol sulfate (PROVENTIL) (2.5 MG/3ML) 0.083% nebulizer solution Inhale 1 Vial via nebulizer every 4 hours as needed for Wheezing. 120 Vial 11 07/05/2016 Active clonazePAM (KLONOPIN) 0.5 MG TabletIndications:De pression with anxiety Take 1 Tab by mouth [...] Recomb Adjuvanted 50 MCG/0.5ML Intramuscular Suspension Reconstituted (Shingrix)Indication s:Need for vaccination for zoster Inject 0.5 mL into a large muscle now and repeat dose in 60 to 180 days 1 Each 1 04/21/2021 Active Acetaminophen ER 650 MG Oral Tablet Extended Release Take 1 Tablet by mouth every 8 hours as needed. 0 Active Carvedilol 25 MG Oral Tablet (Coreg) Take by mouth 1 Tablet in the morning AND 1 Tablet before bedtime. 180 Tablet 11 07/21/2022 Active PARoxetine HCl 40 MG Oral Tablet (pAXil) Take 1 Tablet by mouth in the morning. 0 Active Benzonatate 100 MG Oral Capsule (Tessalon Perles) Take 1 Capsule by mouth 3 times a day as needed for Cough. 0 Active Umeclidinium Grafton 62.5 MCG/ACT Inhalation Aerosol Powder Breath Activated (INCRUSE ellipta) Inhale 1 Puff by mouth in the morning. 0 Active amLODIPine Besylate 10 MG Oral Tablet (Norvasc)Indications :HTN, goal below 140/90 TAKE 1 TABLET BY [...] Active Losartan Potassium 50 MG Oral Tablet (Cozaar)Indications: HTN, goal below 140/90 TAKE 1 TABLET BY MOUTH TWICE DAILY 180 Tablet 3 07/05/2023 Active Atorvastatin Calcium 20 MG Oral Tablet (Lipitor)Indications :Dyslipidemia, goal LDL below 70 TAKE 1 TABLET BY MOUTH ONCE DAILY 90 Tablet 3 07/30/2023 Active Cephalexin 500 MG Oral Capsule Take 4 caps 1 hour prior to dental appointment. 4 Capsule 0 08/21/2023 Active Vitamin D3 1.25 MG (34577 UT) Oral CapsuleIndications:A ge-related osteoporosis without current pathological fracture,Hypovitamin osis D Take 1 Capsule by mouth once a week. 12 Capsule 1 09/18/2023 12/17/2023 Active Alendronate Sodium 70 MG Oral Tablet (Fosamax)Indications :Age-related osteoporosis without current pathological fracture,Hypovitamin osis D Take 1 Tablet by mouth once a week. with 8 oz. water 30 minutes before first meal of the day. Remain upright for 30 min after taking tablet. 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 Condyloma acuminatum Moderate COPD (chronic obstructive pulmonary dis ease) Overview: Dr Peoples Gastroesophageal reflux disease without esophagi tis Depression with anxiety documented as of this encounter (statuses as of 10/02/2023) Resolved Problems Problem Noted Date Diagnosed Date [...] as of this encounter (statuses as of 10/02/2023) Immunizations Name Administration Dates Next Due COVID-19 mRNA, LNP-s, No Pre serve, 2-Dose Series (Moderna) 01/20/2021,12/23/2020 Pneumococcal Conjugate Vacci ne, 20-valent ([id number]) 05/01/2023 Pneumococcal Polysaccharide PPV23 (Pneumovax) 10/09/2015 Seasonal [...] No 09/11/2015 documented as of this encounter Plan of Treatment Upcoming Encounters Date Type Department Care Team (Late st Contact Info) Description 11/08/2023 4:00 PM EST Office Visit Cardiology, [facility] [address] [place] [address] Daniel Cuevas, [address] [place] [address] 11/14/2023 4:00 PM EST Laboratory [facility], [place] [address] [facility] [phone] [facility] [address] [facility] [place] [address] 11/19/2023 3:40 PM EST Office Visit Family Practice, [place] [address] [facility] [phone] Stefany Benitez MD [address] [facility] [address] 04/07/2024 4:15 PM EDT Imaging Radiology [facility] 1st [facility] [address] [place] [address] 08/04/2024 10:00 AM EST Office Visit Gynecology/Obstetrics [facility] [address] [place] [address] Nathalia Guerrero PA-C [address] [place] [address] Pending Results Name Type Priority Associated Diagnoses Date /Time BASIC METABOLIC PANEL Lab Routine Decreased GFR 10/02/2023 3:39 PM EST Scheduled Procedures Name Priority Associated Diagnoses Date/Ti [...] 04/27/2023, 07/0 03/2023, 04/04/2022, Additional history exists GFR 09/15/2024 09/15/2023, 06/01, 05/05/2023, Additional history exists O2 ASSESSMENT COMPLETED IN PAST YEAR FOR COPD 09/18/2024 09/18/2023 Depression Screening 09/27/2024 09/27/2023, 11/25/19 16 DXA Scan 06/05/2025 06/05/2023 Pap Smear 05/01/2026 05/01/2023, 04/01, 02/06/2017, Additional history exists Albumin/Creatinine Ratio 05/05/2026 05/05/2023 Colonoscopy 08/03/2026 08/03/2016, 08/03/2016 Colorectal Cancer Screening 08/03/2026 Cervical Cancer Screening 05/01/2028 HPV/Co-Test 05/01/2028 05/01/2023 *COPD SEVERITY VERIFIED BY PFT Addressed 08/01/2017 (Done elsewhere) Overridden with the intention of not completing the topic Pneumococcal Vaccine: Pediatrics (0 to 5 Years) and At-Risk Patients (6 to 64 Years) Completed 05/01/2023, 10/09/2015 VITAMIN D LEVEL ONCE IN A LIFETIME-USE SMARTSET# [id number] Completed 05/05/2023, 08/16/2017, 12/20/2016 Influenza Vaccine (FLU shot) Completed 06/19/2023, 07/21/2022, 07/03/2020, Additional history exists GARDASIL-HPV IMMUNIZATION SERIES Aged Out No longer eligible based on patient's age to complete this topic MENINGOCOCCAL (MENACTRA/MENVEO) Aged Out No longer eligible based on patient's age to complete this topic documented as of this encounter Medical Devices Not on filedocumented as of this encounter Visit Diagnoses Diagnosis Decreased GFR Nonspecific abnormal results of kidney function study documented in this encounter Advance Directives Latest [...] the patient have Health Care Power of Automatic Equipment Technician? No Care Teams Heat Treat Inspector Relationship Specialty Start Date End Date Stefany Benitez MD [address] [place] [facility] [place] [address] PCP - General Family Medicine 04/25/22 documented as of this encounter
--- OUTSIDE RECORDS SUMMARY | 2023-10-21 07:01 | External Medical Summary | Summary of Care ---
Author Name Unknown Organization [facility] Address [address] [facility] [place] [address] Phone [phone] Care Team Providers Care Cash Applications Clerk Name Role Phone Stefany Benitez MD Primary Care Provid er Reason for Visit * Reason Comments Outpatient Testing Encounter Details Date Type Department Care Team (Late st Contact Info) Description 10/13/2023 8:10 AM EST Laboratory Laboratory, [facility] [address] [facility] [phone] [facility] [place] [address] [place] (acute kidney injury) (HCC); Chronic kidney disease, unspecified CKD stage Allergies Active Allergy Reactions Criticality Noted Date [...] as of this encounter (statuses as of 10/13/2023) Medications Medication Sig Dispensed Refills Start Date [...] as needed for Cough. 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 Condyloma acuminatum Moderate COPD (chronic obstructive pulmonary dis ease) Overview: Dr Peoples Gastroesophageal reflux disease without esophagi tis Depression with anxiety documented as of this encounter (statuses as of 10/13/2023) Resolved Problems Problem Noted Date Diagnosed Date [...] as of this encounter (statuses as of 10/13/2023) Immunizations Name Administration Dates Next Due COVID-19 mRNA, LNP-s, No Pre serve, 2-Dose Series (Moderna) 01/20/2021,12/23/2020 Diptheria/Tetanus (Adult) 02/28/1979 OPV - Polio Virus Vaccine (Oral) 02/28/1979 Pneumococcal Conjugate Vacci ne, 20-valent ([id number]) 05/01/2023 Pneumococcal Polysaccharide PPV23 (Pneumovax) 10/09/2015 Seasonal Influenza Virus Vac cine, Unspecified Formulation 07/19/2018 Seasonal Influenza, PF, 6 M & above, IM , (FluLaval or Fluzone) 07/21/2022,06/17/2019 Seasonal Influenza, Quadriva lent Hd (Fluzone Hd) 06/19/2023 Seasonal Influenza, Quadriva lent, No Preserve, IM 07/03/2020,07/19/2016 Seasonal Influenza, Split, I IV3, With Preserve, Inj 08/01/2017,09/16/2015,08/10/2009 TD - Tetanus/Diptheria (ADULT) 07/17/2002 TDAP (age 10 and older)(Boostrix) 10/13/2009 documented [...] Care Team (Late st Contact Info) Description 10/18/2023 6:15 PM EST Imaging Radiology [facility] [address] [facility] [place] [address] 10/19/2023 3:00 PM EST Office Visit Nephrology, [facility] [address] [place] [address] Brad Johnson MD [address] [place] [address] 11/14/2023 4:00 PM EST Laboratory Laboratory[address] [place] [phone] [place], Laboratory [address] [place] [place] [address] 11/19/2023 3:40 PM EST Office Visit [facility], [place] [address] [place] [phone] Stefany [facility]itez MD [address] [facility] [address] 04/07/2024 4:15 PM EDT Imaging Radiology [facility] [address] [facility] [place] [address] 08/04/2024 10:00 AM EST Office Visit Gynecology/Obstetrics [facility] [place] [address] Nathalia Guerrero PA-C [address] [place] [address] Pending Results Name Type Priority Associated Diagnoses Date /Time RENAL FUNCTION PANEL Lab Routine [place] (acute kidney injury) (HCC) Chronic kidney disease, unspecified CKD stage 10/13/2023 8:15 AM EST HEPATITIS B SURFACE ANTIBODY Lab Routine [place] (acute kidney injury) (HCC) Chronic kidney disease, unspecified CKD stage 10/13/2023 8:15 AM EST ALBUMIN / CREATININE RATIO, URINE Lab Routine [place] (acute kidney injury) (HCC) Chronic kidney disease, unspecified CKD stage 10/13/2023 8:23 AM EST URINALYSIS, REFLEX TO MICROSCOPIC Lab Routine [place] (acute kidney injury) (HCC) Chronic kidney disease, unspecified CKD stage 10/13/2023 8:23 AM EST Scheduled Procedures Name Priority Associated Diagnoses [...] season) 2023 01/20/2021, 12/23/2020 Mammogram 04/27/2024 04/27/2023, 07/03/2023, 04/04/2022, Additional history exists O2 ASSESSMENT COMPLETED IN PAST YEAR FOR COPD 09/18/2024 09/18/2023 Depression Screening 09/27/2024 09/27/2023, 11/25/19 16 GFR 10/02/2024 10/02/2023, 08/31, 06/19/2023, Additional history exists DXA Scan 06/05/2025 06/05/2023 [...] D LEVEL ONCE IN A LIFETIME-USE SMARTSET# [id number] Completed 05/05/2023, 08/16/2017, 12/20/2016 Influenza Vaccine (FLU shot) Completed 06/19/2023, 07/21/2022, 07/03/2020, Additional history exists GARDASIL-HPV IMMUNIZATION SERIES Aged Out No longer eligible based on patient's age to complete this topic MENINGOCOCCAL (MENACTRA/MENVEO) Aged Out No longer eligible based on patient's age to complete this topic documented as of this encounter Medical Devices Not on filedocumented as of this encounter Visit Diagnoses Diagnosis [place] (acute kidney injury) (HCC) Acute kidney failure, unspecified Chronic kidney disease, unspecified CKD stage documented in this encounter Advance Directives Latest [...] the patient have Health Care Power of Fry Cook? No Care Teams Cash Applications Clerk Relationship Specialty Start Date End Date Stefany Benitez MD [address] [place] [address] PCP - General Family Medicine 04/25/22 documented as of this encounter
--- OUTSIDE RECORDS SUMMARY | 2023-10-21 07:01 | External Medical Summary | Summary of Care ---
Author Name Unknown Organization [facility] Address [address] [facility] [place] [address] Phone [phone] Care Team Providers Care Internal Corrosion Specialist Name Role Phone Stefany Benitez MD Primary Care Provid er Reason for Visit * Reason Onset Date Comments Appointment 10/12/2023 Encounter Details Date Type Department Care Team (Late st Contact Info) Description 10/12/2023 [facility] [address] [place] [address] CamaraKellen fisher MD [address] [place] [address] Appointment Allergies Active Allergy Reactions Criticality Noted Date [...] as of this encounter (statuses as of 10/12/2023) Medications Medication Sig Dispensed Refills Start Date [...] as needed for Cough. 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 Condyloma acuminatum Moderate COPD (chronic obstructive pulmonary dis ease) Overview: Dr Peoples Gastroesophageal reflux disease without esophagi tis Depression with anxiety documented as of this encounter (statuses as of 10/12/2023) Resolved Problems Problem Noted Date Diagnosed Date [...] as of this encounter (statuses as of 10/12/2023) Immunizations Name Administration Dates Next Due COVID-19 mRNA, LNP-s, No Pre serve, 2-Dose Series (Moderna) 01/20/2021,12/23/2020 Pneumococcal Conjugate Vacci ne, 20-valent ([id number]) 05/01/2023 Pneumococcal Polysaccharide PPV23 (Pneumovax) 10/09/2015 Seasonal [...] encounter Miscellaneous Notes * Telephone Encounter - Mel Buckley OSA - 10/12/2023 8:11 AM EST 10/12/23 Called patient, left message. Trying to get patient scheduled with Nephrology for appointment. Referral is under active request. My G message being sent out as well. documented in this encounter Plan of Treatment Upcoming Encounters Date Type Department Care Team (Late st Contact Info) Description 11/08/2023 4:00 PM EST Office Visit Cardiology, [facility] [address] [place] [address] Daniel Cuevas, DO [address] [place] [address] 11/14/2023 4:00 PM EST Laboratory Laboratory, [place] [address] [place] [facility] [place] [phone] [place], Laboratory [address] [facility], [place] [address] 11/19/2023 3:40 PM EST Office Visit Family [facility], [place] [address] [place] [facility] [place] [phone] Stefany Benitez MD [address] [place] [facility] [place] [address] 04/07/2024 4:15 PM EDT Imaging [facility] [address] [facility] [place] [address] 08/04/2024 10:00 AM EST Office Visit Gynecology/Obstetrics [facility] [address] [facility] [place] [address] Nathalia Guerrero PA-C [address] [facility] [place] [address] Scheduled Procedures Name Priority Associated Diagnoses Date/Ti [...] 04/27/2023, 07/0 03/2023, 04/04/2022, Additional history exists O2 ASSESSMENT [...] D LEVEL ONCE IN A LIFETIME-USE SMARTSET# [id number] Completed 05/05/2023, 08/16/2017, 12/20/2016 Influenza Vaccine (FLU shot) Completed 06/19/2023, 07/21/2022, 07/03/2020, Additional history exists GARDASIL-HPV IMMUNIZATION SERIES Aged Out No longer eligible based on patient's age to complete this topic MENINGOCOCCAL (MENACTRA/MENVEO) Aged Out No longer eligible based on patient's age to complete this topic documented as of this encounter Medical Devices Not on filedocumented as of this encounter Advance Directives Latest Code Status on File Code Status Date Activated Date Inactivated Comments Full Code 09/11/2015 11:44 AM 09/16/2015 7:31 PM Th is order reflects the patients wishes and were consensually agreed upon. Question Answer Comments Discussion of Advance Directives occurred with: Not Discussed Does the patient have a Living Will? No Does the patient have Health Care Power of Director Of Physical Education? No Care Teams Internal Corrosion Specialist Relationship Specialty Start Date End Date Stefany Benitez MD [address] [place] [address] PCP - General Family Medicine 04/25/22 documented as of this encounter
--- OUTSIDE RECORDS SUMMARY | 2023-10-21 07:01 | External Medical Summary | Summary of Care ---
Author Name Unknown Organization [facility] Address [address] [place] [address] Phone [phone] Care Team Providers Care Glove Turner And Former Name Role Phone Stefany Benitez MD Primary Care Provid er Reason for Referral * Evaluate & Treat - Unlimited Visits (Within 10 days (routine)) - Authorized Specialty Diagnoses / Procedures Referred By Rodriguez mcelroy Referred To Contact Nephrology Diagnoses [place] (acute kidney injury) (HCC) Chronic kidney disease, unspecified CKD stage Stefany Benitez MD [address] [place] [address] Referral ID Status Reason Start Date Expiration Date Visits Requested Visits Authorized [id number] Authorized Specialty Services Required 10/11/2023 999 999 Question Answer Referral Priority Within 10 days (routine) Where should this appointment be scheduled? [facility] What condition is this patient being seen for? Acute kidney injury Encounter Details Date Type Department Care Team (Late st Contact Info) Description [facility] [address] [place] [facility] [place] [address] Stefany Benitez MD [address] [place] [address] Allergies Active Allergy Reactions Criticality Noted Date [...] as needed for Cough. 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 BENIGN JILLAIN SKIN EAR 04/26/2004 11/25/19 Primary hypercoagulable state 12/16/2003 11/25/2015 Abnormal Papanicolaou [...] (Moderna) 01/20/2021,12/23/2020 Pneumococcal Conjugate Vacci ne, 20-valent ([id number]) 05/01/2023 Pneumococcal Polysaccharide PPV23 (Pneumovax) 10/09/2015 Seasonal [...] Past Smokeless Tobacco: Never Comments:boyfriend smokes, m kevin smokes Alcohol Use Standard Drinks/Week Comments Not [...] Description 10/18/2023 6:15 PM EST Imaging Radiology [facility] [address] [place] [address] 10/19/2023 3:00 PM EST Office Visit Nephrology, [facility] [address] [facility] [place] [address] Brad Johnson MD [address] [facility] [place] [place] [address] 11/08/2023 4:00 PM EST Office Visit Cardiology, [facility] [address] [place] [address] Daniel Cuevas DO [address] [place] [address] 11/14/2023 4:00 PM EST Laboratory Laboratory, [place] [address] [place] [phone] [facility] [address] [place] [address] 11/19/2023 3:40 PM EST Office Visit Family Practice, [place] [address] [place] [address] Stefany Benitez MD [address] [place] [address] 04/07/2024 4:15 PM EDT Imaging Radiology [facility] [facility] [address] [place] [address] 08/04/2024 10:00 AM EST Office Visit Gynecology/Obstetrics [facility] [address] [place] [address] Nathalia Guerrero PA-C [address] [place] [address] Scheduled Orders Name Type Priority Associated Diagnoses Orde r Schedule RENAL FUNCTION PANEL Lab Routine [place] (acute kidney injury) (HCC) Chronic kidney disease, unspecified CKD stage Expected: 10/12/2023 (Approximate), Expires: 10/11/2024 URINALYSIS, REFLEX TO MICROSCOPIC Lab Routine [place] (acute kidney injury) (HCC) Chronic kidney disease, unspecified CKD stage Expected: 10/12/2023 (Approximate), Expires: 11/11/2024 ALBUMIN / CREATININE RATIO, URINE Lab Routine [place] (acute kidney injury) (HCC) Chronic kidney disease, unspecified CKD stage Expected: 10/12/2023 (Approximate), Expires: 10/11/2024 US RENAL Medical Imaging Routine [place] (acute kidney injury) (HCC) Chronic kidney disease, unspecified CKD stage Expected: 10/12/2023 (Approximate), Expires: 11/11/2024 HEPATITIS B SURFACE ANTIBODY Lab Routine [place] (acute kidney injury) (HCC) Chronic kidney disease, unspecified CKD stage Expected: 10/11/2023 (Approximate), Expires: 10/10/2024 Scheduled Procedures Name Priority Associated Diagnoses Date/Ti [...] D LEVEL ONCE IN A LIFETIME-USE SMARTSET# [id number] Completed 05/05/2023, 08/16/2017, 12/20/2016 Influenza Vaccine (FLU [...] Visit Diagnoses Diagnosis [place] (acute kidney injury) (HCC)- Primary Acute kidney failure, unspecified Chronic kidney disease, [...] the patient have Health Care Power of Supervisor Respiratory? No Care Teams Glove Turner And Former Relationship Specialty Start Date End Date Stefany Benitez MD [address] [place] [address] PCP - General Family Medicine 04/25/22 documented as of this encounter
--- OUTSIDE RECORDS SUMMARY | 2023-10-21 07:01 | External Medical Summary | Summary of Care ---
Author Name Unknown Organization [facility] Address [address] [place] [address] Phone [phone] Care Team Providers Care Pantograph Machine Set Up Operator Name Role Phone Stefany Benitez MD Primary Care Provid er Reason for Referral * Evaluate & Treat - Unlimited Visits (Within 10 days (routine)) - Authorized Specialty Diagnoses / Procedures Referred By Rodriguez mcelroy Referred To Contact Nephrology Diagnoses [place] (acute kidney injury) (HCC) Chronic kidney disease, unspecified CKD stage Stefany Benitez MD [address] [place] [address] Referral ID Status Reason Start Date Expiration Date Visits Requested Visits Authorized [id number] Authorized Specialty Services Required 10/11/2023 999 999 Question Answer Referral Priority Within 10 days (routine) Where should this appointment be scheduled? Kevin What condition is this patient being seen for? Acute kidney injury Encounter Details Date Type Department Care Team (Late st Contact Info) Description 10/11/2023 [facility] [address] [place] [facility] [place] [address] Stefany Benitez MD [address] [place] [address] Allergies Active Allergy Reactions Criticality [...] as of this encounter (statuses as of 10/11/2023) Medications Medication Sig Dispensed Refills Start Date [...] as needed for Cough. 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 BENIGN JILLIAN SKIN EAR 04/26/2004 11/25/19 Primary hypercoagulable state 12/16/2003 11/25/2015 Abnormal Papanicolaou smear of vagina and vaginal HPV 04/29/2003 11/25/2015 Overview: ICD-10 update of inactive term Palpitations 03/07/1996 11/25/2015 Depression 08/16/2017 TEMPOROMANDIBULAR JOINT DISO RDERS, UNSPECIFIED 11/25/2015 Tobacco use disorder 016 Mitral valve disorder 2015 INFORMATION 04/26/2004 documented as of this encounter (statuses as of 10/11/2023) Immunizations Name Administration Dates Next Due COVID-19 mRNA, LNP-s, No Pre serve, 2-Dose Series (Moderna) 01/20/2021,12/23/2020 Pneumococcal Conjugate Vacci ne, 20-valent ([id number]) 05/01/2023 Pneumococcal Polysaccharide PPV23 (Pneumovax) 10/09/2015 Seasonal [...] 11/08/2023 4:00 PM EST Office Visit Cardiology, [facility] [address] [place] [address] Daniel Cuevas DO [address] [place] [address] 11/14/2023 4:00 PM EST Laboratory Laboratory, [place] [address] [place] [facility] [phone] [place], Laboratory [address] [place] [facility] [address] 11/19/2023 3:40 PM EST Office Visit Family Practice, [place] [address] [facility], [place] [phone] Stefany Benitez MD [address] [facility], [place] [address] 04/07/2024 4:15 PM EDT Imaging Radiology [facility] [address] [facility] [place] [address] [place] [address] 08/04/2024 10:00 AM EST Office Visit Gynecology/Obstetrics [facility] [address] [facility] [place] [address] Nathalia Guerrero PA-C [address] [place] [address] Scheduled Orders Name Type Priority Associated Diagnoses [...] D LEVEL ONCE IN A LIFETIME-USE SMARTSET# [id number] Completed 05/05/2023, 08/16/2017, 12/20/2016 Influenza Vaccine (FLU [...] the patient have Health Care Power of Belt Sewer? No Care Teams Pantograph Machine Set Up Operator Relationship Specialty Start Date End Date Stefany Benitez MD [address] [facility] [place] [address] PCP - General Family Medicine 04/25/22 documented as of this encounter
--- OUTSIDE RECORDS SUMMARY | 2023-10-21 07:01 | External Medical Summary | Summary of Care ---
Author Name Unknown Organization [facility] Address [address] [place] [address] Phone [phone] Care Team Providers Care Early Breastfeeding Care Specialist Name Role Phone Stefany Benitez MD Primary Care Provid er Reason for Visit * Reason Onset Date Comments Hospital Follow-Up 06/19/2023 Encounter Details Date Type Department Care Team (Late st Contact Info) Description 06/19/2023 Telephone General Internal Medicine [facility] [address] [place] [address] Stefany Benitez MD [address] [place] [address] Hospital Follow-Up Allergies Active Allergy Reactions Criticality Noted Date [...] as of this encounter (statuses as of 09/18/2023) Medications Medication Sig Dispensed Refills Start Date [...] as needed for Cough. 0 Active Umeclidinium [place] 62.5 MCG/ACT Inhalation Aerosol Powder Breath Activated (INCRUSE ellipta) Inhale 1 Puff by mouth in the morning. 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 Condyloma acuminatum Moderate COPD (chronic obstructive pulmonary dis ease) Overview: Dr Peoples Gastroesophageal reflux disease without esophagi tis Depression with anxiety documented as of this encounter (statuses as of 09/18/2023) Resolved Problems Problem Noted Date Diagnosed Date [...] as of this encounter (statuses as of 09/18/2023) Immunizations Name Administration Dates Next Due COVID-19 mRNA, LNP-s, No Pre serve, 2-Dose Series (Moderna) 01/20/2021,12/23/2020 Pneumococcal Conjugate Vacci ne, 20-valent ([id number]) 05/01/2023 Pneumococcal Polysaccharide PPV23 (Pneumovax) 10/09/2015 Seasonal [...] Answer Date Recorded PHQ Adult Total Score 14 04/25/2022 Hunger Vital Sign Answer Date Recorded Within the past 12 months, y ou worried that your food would run out before you got the money to buy more. Never true 11/09/19 Within the past 12 months, t he food you bought just didn't last and you didn't have money to get more. Never true 11/09/2022 Sex and Gender Information Value Date Recorded [...] encounter Miscellaneous Notes * Telephone Encounter - Fermin Watson RN - 06/19/2023 12:54 PM EDT Patient discharged home from [facility] on 06/15/23. Nephrology consulted ( hyponatremia). No recommendations upon discharge. Please determine if patient requires a Nephrology follow up. Thank you documented in this encounter Plan of Treatment Upcoming Encounters Date Type Department Care Team (Late st Contact Info) Description 10/02/2023 4:00 PM EST Laboratory Laboratory, [place] [address] [facility] [place], [place] [address] [facility] [address] [place] [facility] [address] 11/08/2023 4:00 PM EST Office Visit Cardiology, [facility] [address] [facility] [place] [address] Daniel Cuevas DO [address] [place] [address] 11/14/2023 4:00 PM EST Laboratory Laboratory, [place] [address] [facility] [place], [place] [address] [facility] [address] [place] [facility] [address] 11/19/2023 3:40 PM EST Office Visit Family Practice, [place] [address] [facility] [place] [phone] Stefany Benitez MD [address] [place] [facility] [place] [address] 04/07/2024 4:15 PM EDT Imaging Radiology [facility] [facility] [address] [place] [address] 08/04/2024 10:00 AM EST Office Visit Gynecology/Obstetrics [facility] [address] [place] [address] Nathalia Guerrero PA-C [address] [place] [address] Scheduled Procedures Name Priority Associated Diagnoses Date/Ti [...] Td or Tdap) 10/13/2019 10/13/2009, 07/17/2002, 02/28/1979 Depression, Most Recent Score >= 10 (will fire each visit until score < 10) 04/26/2022 04/25/2022 COVID-19 Vaccine (2022- season) 2023 01/20/2021, 12/23/2020 Mammogram 04/27/2024 04/27/2023, 0703/2023, 04/04/2022, Additional history exists GFR 09/15/2024 09/15/2023, 06/01, 05/05/2023, Additional history exists O2 ASSESSMENT COMPLETED IN PAST YEAR FOR COPD 09/18/2024 09/18/2023 DXA Scan 06/05/2025 06/05/2023 Pap Smear 05/01/2026 [...] D LEVEL ONCE IN A LIFETIME-USE SMARTSET# [id number] Completed 05/05/2023, 08/16/2017, 12/20/2016 Influenza Vaccine (FLU [...] the patient have Health Care Power of Telecommunication Tower Technician? No Care Teams Early Breastfeeding Care Specialist Relationship Specialty Start Date End Date Stefany Benitez MD [address] [place] [address] PCP - General Family Medicine 04/25/22 documented as of this encounter
--- OUTSIDE RECORDS SUMMARY | 2023-10-21 07:01 | External Medical Summary | Summary of Care ---
Author Name Unknown Organization [facility] Address [address] [facility] [place] [address] Phone [phone] Care Team Providers Care Perfusionist Name Role Phone Stefany Benitez MD Primary Care Provid er Reason for Visit * Reason Comments Outpatient Testing Encounter Details Date Type Department Care Team (Late st Contact Info) Description 10/13/2023 8:10 AM EST Laboratory Laboratory, [facility] [address] [facility] [phone] [facility] [address] [place] [address] [place] (acute kidney injury) (HCC); Chronic [...] as needed for Cough. 0 Active Umeclidinium [place] 62.5 MCG/ACT Inhalation Aerosol Powder Breath Activated [...] 0 08/21/2023 Active Vitamin D3 1.25 MG (15660 UT) Oral CapsuleIndications:Ag e-related osteoporosis without current [...] 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 [id number] mutation Heterozygous factor V Leiden mutation 09/30/2014 [...] (Oral) 02/28/1979 Pneumococcal Conjugate Vacci ne, 20-valent ([id number]) 05/01/2023 Pneumococcal Polysaccharide PPV23 (Pneumovax) 10/09/2015 Seasonal [...] Description 10/18/2023 6:15 PM EST Imaging Radiology [facility] [address] [facility] [place] [address] 10/19/2023 3:00 PM EST Office Visit Nephrology, [facility] [address] [place] [address] Brad Johnson MD [address] [place] [address] 11/14/2023 4:00 PM EST Laboratory Laboratory[address] [place] [phone] [place], [facility] [address] [place] [facility] [place] [address] 11/19/2023 3:40 PM EST [facility] [place] [address] [facility] [phone] Stefany [facility] [address] [facility] [address] 04/07/2024 4:15 PM EDT Imaging Radiology [facility] [facility] [address] [facility] [place] [address] 08/04/2024 10:00 AM EST Office Visit Gynecology/Obstetrics [facility] [address] [facility] [place] [address] Nathalia uGerrero PA-C [address] [place] [address] Pending Results Name Type Priority Associated Diagnoses [...] 10/13/2009, 07/17/2002, 02/28/1979 COVID-19 Vaccine (3 - 2022-24 season) 2023 01/20/2021, 12/23/2020 Mammogram 04/27/2024 04/27/2023, [...] D LEVEL ONCE IN A LIFETIME-USE SMARTSET# [id number] Completed 05/05/2023, 08/16/2017, 12/20/2016 Influenza Vaccine (FLU [...] the patient have Health Care Power of Security Researcher? No Care Teams Perfusionist Relationship Specialty Start Date End Date Stefany Benitez MD [address] [place] [address] PCP - General Family Medicine 04/25/22 documented as of this encounter
--- OUTSIDE RECORDS SUMMARY | 2023-10-21 07:01 | External Medical Summary ---
Author Name Unknown Address Unknown Organization K01:LABORATORY [facility] [place] - [address] [facility] [address] Laboratory Report Ordering Provider Test Date Status LEANDER KEVIN 10/13/2023 08:23:33 Final Observation Date Value Abnormality Reference (Units ) Status Color of Urine by Auto 10/13/2023 08:23:33 Colorless Colorless, Light Yellow, Yellow, Dark Yellow Final Clarity, Urine 10/13/2023 08:23:33 Clear Clear Final Glucose [Mass/volume] in Urine by Automated test strip 10/13/2023 08:23:33 Negative Negative (mg/dL) Final Bilirubin.total [Presence] in Urine by Automated test strip 10/13/2023 08:23:33 Negative Negative Final Ketones [Mass/volume] in Urine by Automated test strip 10/13/2023 08:23:33 Negative Negative (mg/dL) Final Specific gravity, Urine 10/13/2023 08:23:33 1.006 1.003-1.030 Final Hemoglobin [Presence] in Urine by Automated test strip 10/13/2023 08:23:33 Negative Negative Final pH, Urine 10/13/2023 08:23:33 6.5 5.0-7.5 (Units) Final Protein [Mass/volume] in Urine by Automated test strip 10/13/2023 08:23:33 Negative Negative (mg/dL) Final Urobilinogen [Mass/volume] in Urine by Automated test strip 10/13/2023 08:23:33 Normal Normal (mg/dL) Final Nitrite [Presence] in Urine by Automated test strip 10/13/2023 08:23:33 Negative Negative Final Leukocyte esterase [Presence] in Urine by Automated test strip 10/13/2023 08:23:33 Negative Negative Final Annotation Comment 10/13/2023 08:23:33 Final Screen negative - Microscopi c not performed. Performing Location LABORATORY [facility] - [address] [place] [address]
--- OUTSIDE RECORDS SUMMARY | 2023-10-21 07:01 | External Medical Summary ---
Author Name Unknown Address Unknown Organization K01:[place] [place] [facility] [place][note 2] [address] [place] [address] Laboratory Report Ordering Provider Test Date Status LEANDER KEVIN 10/02/2023 15:39:19 Final Observation Date Value Abnormality Reference (Units ) Status BUN 10/02/2023 15:39:19 24 Above high normal 6-20 (mg/dL) Final Creatinine 10/02/2023 15:39:19 1.9 Above high normal 0.5-1.0 (mg/dL) Final Glomerular filtration rate/1.73 sq M.predicted [Volume Rate/Area] in Serum, Plasma or Blood by Creatinine-based formula (CKD-EPI) 10/02/2023 15:39:19 31 Below low normal >=60 (mL/min) Final eGFR is calculated based on the CKD-EPI 2020 equation SODIUM 10/02/2023 15:39:19 134 Below low normal 135 -146 (mmol/L) Final Potassium 10/02/2023 15:39:19 4.5 3.5-5.1 (m mol/L) Final Cl 10/02/2023 15:39:19 98 98-107 (mm ol/L) Final CO2 10/02/2023 15:39:19 25 22-32 (mmo l/L) Final Anion gap 10/02/2023 15:39:19 11 7-15 (mmol /L) Final Glucose 10/02/2023 15:39:19 144 Above high normal 70 -120 (mg/dL) Final Calcium 10/02/2023 15:39:19 9.3 8.4-10.2 ( mg/dL) Final Performing Location LABORATORY [facility] [place] - [facility] [place][note 2] [address] [place] [address]
--- OUTSIDE RECORDS SUMMARY | 2023-10-21 07:01 | External Medical Summary ---
Author Name Unknown Address Unknown Organization K01:LABORATORY [place] [address] [place] [address] Laboratory Report Ordering Provider Test Date Status LEANDER KEVIN 10/13/2023 08:15:54 Final Observation Date Value Abnormality Reference (Units) Status Hepatitis B virus surface Ab [Units/volume] in Serum or Plasma by Immunoassay 10/13/2023 08:15:54 <3.5 (mIU/mL) Final Hepatitis B virus surface Ab [Presence] in Serum by Immunoassay 10/13/2023 08:15:54 Negative Final HEPATITIS B SURFACE ANTIBODY, INTERPRETATION 10/13/2023 08:15:54 NOT immune to Hepatitis B Virus Final POSITIVE: >=11.5 mIU/mL
INDETERMINATE: 8.5-<11.5 mIU/mL
NEGATIVE: <8.5 mIU/mL Performing Location LABORATORY [place] [address] [place] [address]
--- OUTSIDE RECORDS SUMMARY | 2023-10-21 07:01 | External Medical Summary ---
Author Name Unknown Address Unknown Organization [id number]:LABORATORY [facility] [place] - [address] [facility] [address] [place] [address] Laboratory Report Ordering Provider Test Date Status LEANDER KEVIN 10/13/2023 08:15:54 Final Observation Date Value Abnormality Reference (Units ) Status BUN 10/13/2023 08:15:54 20 6-20 (mg/dL) Final Creatinine 10/13/2023 08:15:54 1.4 Above high normal 0.5-1.0 (mg/dL) Final Glomerular filtration rate/1.73 sq M.predicted [Volume Rate/Area] in Serum, Plasma or Blood by Creatinine-based formula (CKD-EPI) 10/13/2023 08:15:54 43 Below low normal >=60 (mL/min) Final eGFR is calculated based on the CKD-EPI 2020 equation SODIUM 10/13/2023 08:15:54 135 135-146 (m mol/L) Final Potassium 10/13/2023 08:15:54 4.3 3.5-5.1 (m mol/L) Final Cl 10/13/2023 08:15:54 99 98-107 (mm ol/L) Final CO2 10/13/2023 08:15:54 24 22-32 (mmo l/L) Final Anion gap 10/13/2023 08:15:54 12 7-15 (mmol /L) Final Glucose 10/13/2023 08:15:54 90 70-120 (mg /dL) Final Calcium 10/13/2023 08:15:54 9.2 8.4-10.2 ( mg/dL) Final Albumin 10/13/2023 08:15:54 4.2 3.8-5.0 (g /dL) Final Phosphate 10/13/2023 08:15:54 4.7 2.5-4.8 (m g/dL) Final Performing Location [facility] [address] [facility] [address] [place] [address]
--- OUTSIDE RECORDS SUMMARY | 2023-10-21 07:01 | External Medical Summary | Summary of Care ---
Author Name Unknown Organization [facility] Address [address] [facility] [place] [address] Phone [phone] Care Team Providers Care Blueprint Tracer Name Role Phone Stefany Benitez MD Primary Care Provid er Reason for Visit * Reason Comments eRx-Medication Refill Encounter Details Date Type Department Care Team (Late st Contact Info) Description 10/03/2023 Refill Cardiology, [facility] [address] [place] [phone] Carlyn Day, HARPRE[place] [address] [facility] [place] [address] Palpitations*; Abdominal aortic atherosclerosis (HCC); Hypertension goal BP (blood pressure) < 140/90 Allergies Active Allergy Reactions Criticality Noted [...] as of this encounter (statuses as of 10/03/2023) Medications Medication Sig Dispensed Refills Start Date End Date Status albuterol (PROVENTIL HFA) 108 (90 BASE) MCG/ACT inhaler Inhale 2 Puffs by mouth every 6 hours as needed. 0 Active albuterol sulfate (PROVENTIL) (2.5 MG/3ML) 0.083% nebulizer solution Inhale 1 Vial via nebulizer every 4 hours as needed for Wheezing. 120 Vial 11 6 Active clonazePAM (KLONOPIN) 0.5 MG TabletIndications:De pression with anxiety Take 1 Tab by mouth 2 times a day as needed for Anxiety. 60 Tab 0 7 Active Aspirin 81 MG Tablet Take 1 Tab by mouth daily. 34 Tab 5 8 Active ARIPiprazole (ABILIFY) 5 MG Tablet Take 1 Tab by mouth daily. 30 Tab 0 0 Active Cetirizine HCl 10 MG Capsule Take 1 Capsule by mouth in the morning. 0 Active Zoster Vac Recomb Adjuvanted 50 MCG/0.5ML Intramuscular Suspension Reconstituted (Shingrix)Indication s:Need for vaccination for zoster Inject 0.5 mL into a large muscle now and repeat dose in 60 to 180 days 1 Each 1 1 Active Acetaminophen ER 650 MG Oral Tablet Extended Release Take 1 Tablet by mouth every 8 hours as needed. 0 Active PARoxetine HCl 40 MG Oral Tablet (pAXil) Take 1 Tablet by mouth in the morning. 0 Active Benzonatate 100 MG Oral Capsule (Tessalon Perles) Take 1 Capsule by mouth 3 times a day as needed for Cough. 0 Active Umeclidinium [place] 62.5 MCG/ACT Inhalation Aerosol Powder Breath Activated (INCRUSE ellipta) Inhale 1 Puff by mouth in the morning. 0 Active amLODIPine Besylate 10 MG Oral Tablet (Norvasc)Indications :HTN, goal below 140/90 TAKE 1 TABLET BY MOUTH ONCE DAILY 90 Tablet 3 3 Active Terazosin HCl 2 MG Oral Capsule Take 1 Capsule by mouth at bedtime. 90 Capsule 3 3 Active Furosemide 20 MG Oral Tablet (Lasix) One tablet by mouth 2 times per day in the morning and early afternoon. 180 Tablet 3 3 Active hydrALAZINE HCl 50 MG Oral Tablet (Apresoline) Take 1 Tablet by mouth in the morning and 1 Tablet at noon and 1 Tablet before bedtime. 252 Tablet 3 3 Active Losartan Potassium 50 MG Oral Tablet (Cozaar)Indications: HTN, goal below 140/90 TAKE 1 TABLET BY MOUTH TWICE DAILY 180 Tablet 3 3 Active Atorvastatin Calcium 20 MG Oral Tablet (Lipitor)Indications :Dyslipidemia, goal LDL below 70 TAKE 1 TABLET BY MOUTH ONCE DAILY 90 Tablet 3 3 Active Cephalexin 500 MG Oral Capsule Take 4 caps 1 hour prior to dental appointment. 4 Capsule 0 3 Active Vitamin D3 1.25 MG (06315 UT) Oral CapsuleIndications:A ge-related osteoporosis without current pathological fracture,Hypovitamin osis D Take 1 Capsule by mouth once a week. 12 Capsule 1 3 12/17/19 24 Active Alendronate Sodium 70 MG Oral Tablet (Fosamax)Indications :Age-related osteoporosis without current pathological fracture,Hypovitamin osis D Take 1 Tablet by mouth once a week. with 8 oz. water 30 minutes before first meal of the day. Remain upright for 30 min after taking tablet. 15 Tablet 3 3 Active Carvedilol 25 MG Oral Tablet (Coreg)Indications:A bdominal aortic atherosclerosis (HCC),Palpitations,H ypertension goal BP (blood pressure) < 140/90 TAKE ONE TABLET BY MOUTH IN THE MORNING AND ONE BEFORE BEDTIME 180 Tablet 3 4 Active Carvedilol 25 MG Oral Tablet (Coreg) Take by mouth 1 Tablet in the morning AND 1 Tablet before bedtime. 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 Condyloma acuminatum Moderate COPD (chronic obstructive pulmonary dis ease) Overview: Dr Peoples Gastroesophageal reflux disease without esophagi tis Depression with anxiety documented as of this encounter (statuses as of 10/03/2023) Resolved Problems Problem Noted Date Diagnosed Date [...] as of this encounter (statuses as of 10/03/2023) Immunizations Name Administration Dates Next Due COVID-19 mRNA, LNP-s, No Pre serve, 2-Dose Series (Moderna) 01/20/2021,12/23/2020 Pneumococcal Conjugate Vacci ne, 20-valent ([id number]) 05/01/2023 Pneumococcal Polysaccharide PPV23 (Pneumovax) 10/09/2015 Seasonal [...] encounter Miscellaneous Notes * Telephone Encounter - Misael Hicks CRNP - 10/03/2023 12:54 PM EST Signed Prescriptions: Disp Refills Carvedilol 25 MG Oral Tablet (Coreg) 180 Ta*3 Sig: TAKE ONE TABLET BY MOUTH IN THE MORNING AND ONE BEFORE BEDTIME Authorizing Provider: MISAEL HICKS * Telephone Encounter - Bridget Gill LPN - 10/03/2023 12:50 PM ESTPending Prescriptions: Disp Refills Carvedilol 25 MG Oral Tablet (Coreg) 180 Ta*3 Sig: TAKE ONE TABLET BY MOUTH IN THE MORNING AND ONE BEFORE BEDTIME * Telephone Encounter - Bridget Gill LPN - 10/03/2023 12:48 PM EST Did you pend patient's preferred pharmacy and medication before forwarding?yes Pharmacy: [id number] [id number] [facility] Pending Prescriptions: Disp Refills Carvedilol 25 MG Oral Tablet (Coreg) [Pha*180 Ta*3 Sig: TAKE ONE TABLET BY MOUTH IN THE MORNING AND ONE BEFORE BEDTIME Last Visit: 12/06/2022 (in office), 01/01/2023 (telemedicine) Next Visit: 11/08/2023 If no future appointments scheduled, and last appointment is greater than a year ago, please schedule patient for a follow-up appointment Last date the medication was ordered: 07/21/22 Is this request for a controlled substance? NO Urine Drug Screen:No results found for this or any previous visit. Patient Phone Numbers Labs: Lab Results Component Value Date/Time CREAT 1.9 (H) 10/02/2023 03:39 PM CREAT 0.9 09/28/2020 08:19 AM POTASSIUM 4.5 10/02/2023 03:39 PM POTASSIUM 4.3 09/28/2020 08:19 AM TSH 1.01 04/21/2020 11:41 AM LDLCALC 61 09/15/2023 08:15 AM LDLCALC 74 09/28/2020 08:19 AM LDLDIRECT NOT APPLICABLE 09/03/2019 08:30 AM ALT 17 09/15/2023 08:15 AM ALT 23 09/28/2020 08:19 AM HGBA1C 5.2 09/15/2023 08:15 AM HGBA1C 5.9 (H) 09/28/2020 08:19 AM documented in this encounter Plan of Treatment Upcoming Encounters Date Type Department Care Team (Late st Contact Info) Description 11/08/2023 4:00 PM EST Office Visit Cardiology, [facility] [address] [place] [address] Daniel Cuevas DO [address] [place] [address] 11/14/2023 4:00 PM EST Laboratory Laboratory, [place] [address] [place] [phone] [facility] [address] [place] [address] 11/19/2023 3:40 PM EST Office Visit Family [facility], [place] [address] [place] [phone] Stefany Benitez MD [address] [place] [address] 04/07/2024 4:15 PM EDT Imaging Radiology [facility] [address] [facility] [address] [place] [address] 08/04/2024 10:00 AM EST Office Visit Gynecology/Obstetrics [facility] [address] [address] Nathalia Guerrero PA-C [address] [place] [address] Scheduled Procedures Name Priority Associated Diagnoses Date/Ti [...] 04/27/2024 04/27/2023, 0703/2023, 04/04/2022, Additional history exists O2 ASSESSMENT COMPLETED [...] D LEVEL ONCE IN A LIFETIME-USE SMARTSET# [id number] Completed 05/05/2023, 08/16/2017, 12/20/2016 Influenza Vaccine (FLU shot) Completed 06/19/2023, 07/21/2022, 07/03/2020, Additional history exists GARDASIL-HPV IMMUNIZATION SERIES Aged Out No longer eligible based on patient's age to complete this topic MENINGOCOCCAL (MENACTRA/MENVEO) Aged Out No longer eligible based on patient's age to complete this topic documented as of this encounter Medical Devices Not on filedocumented as of this encounter Visit Diagnoses Diagnosis Palpitations- Primary Abdominal aortic atherosclerosis (HCC) Atherosclerosis of aorta Hypertension goal BP (blood pressure) < 140/90 Unspecified essential hypertension documented in this [...] the patient have Health Care Power of Reed Or Wind Instrument Tuner? No Care Teams Blueprint Tracer Relationship Specialty Start Date End Date Stefany Benitez MD [address] [place] [address] PCP - General Family Medicine 04/25/22 documented as of this encounter
--- OUTSIDE RECORDS SUMMARY | 2023-10-21 07:01 | External Medical Summary | Summary of Care ---
Author Name Unknown Organization [facility] Address [address] [facility] [place] [address] Phone [phone] Care Team Providers Care Medical Records Specialist Name Role Phone Stefany Benitez MD Primary Care Provid er Reason for Visit * Reason Comments Outpatient Testing Encounter Details Date Type Department Care Team (Late st Contact Info) Description 10/13/2023 8:10 AM EST Laboratory Laboratory, [facility] [address] [facility] [place] [phone] [facility] [address] [place] [address] [place] (acute kidney injury) (HCC); Chronic [...] as needed for Cough. 0 Active Umeclidinium [place] 62.5 MCG/ACT Inhalation Aerosol Powder Breath Activated [...] 0 08/21/2023 Active Vitamin D3 1.25 MG (53882 UT) Oral CapsuleIndications:Ag e-related osteoporosis without current [...] 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 [id number] mutation Heterozygous factor V Leiden mutation 09/30/2014 [...] (Oral) 02/28/1979 Pneumococcal Conjugate Vacci ne, 20-valent ([id number]) 05/01/2023 Pneumococcal Polysaccharide PPV23 (Pneumovax) 10/09/2015 Seasonal [...] Description 10/18/2023 6:15 PM EST Imaging Radiology [facility] [address] [facility] [place] [address] 10/19/2023 3:00 PM EST Office Visit Nephrology, [facility] [address] [place] [address] Brad Johnson MD [address] [place] [address] 11/14/2023 4:00 PM EST Laboratory Laboratory[address] [place] [phone] [place], Laboratory [address] [place] [facility] [place] [address] 11/19/2023 3:40 PM EST Office Visit [facility], [place] [address] [facility] [phone] Stefany Benitez MD [address] [facility] [address] 04/07/2024 4:15 PM EDT Imaging Radiology [facility] [address]st [facility] [address] [facility] [place] [address] 08/04/2024 10:00 AM EST Office Visit Gynecology/Obstetrics [facility] [address] [facility] [place] [address] Nathalia Guerrero PA-C [address] [place] [address] Pending Results Name Type Priority Associated Diagnoses [...] D LEVEL ONCE IN A LIFETIME-USE SMARTSET# [id number] Completed 05/05/2023, 08/16/2017, 12/20/2016 Influenza Vaccine (FLU [...] the patient have Health Care Power of Cast Iron Dipper? No Care Teams Medical Records Specialist Relationship Specialty Start Date End Date Stefany Benitez MD [address] [place] [address] PCP - General Family Medicine 04/25/22 documented as of this encounter
--- OUTSIDE RECORDS SUMMARY | 2023-10-21 07:02 | External Medical Summary | Summary of Care ---
Author Name Unknown Organization [facility] Address [address] [facility] [address] Phone [phone] Care Team Providers Care Library Assistant Name Role Phone Stefany Benitez MD Primary Care Provid er Reason for Visit * Reason Comments Outpatient Testing Encounter Details Date Type Department Care Team (Late st Contact Info) Description 09/15/2023 8:00 AM EST Laboratory Laboratory, [facility] [address] [place] [phone] [facility] [address] [place] [address] Encounter for long-term (current) use of other medications Allergies Active Allergy Reactions Criticality Noted Date [...] as of this encounter (statuses as of 09/15/2023) Medications Medication Sig Dispensed Refills Start Date [...] as needed for Cough. 0 Active Umeclidinium [place] 62.5 MCG/ACT Inhalation Aerosol Powder Breath Activated [...] dental appointment. 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 Condyloma acuminatum Moderate COPD (chronic obstructive pulmonary dis ease) Overview: Dr Peoples Gastroesophageal reflux disease without esophagi tis Depression with anxiety documented as of this encounter (statuses as of 09/15/2023) Resolved Problems Problem Noted Date Diagnosed Date [...] as of this encounter (statuses as of 09/15/2023) Immunizations Name Administration Dates Next Due COVID-19 mRNA, LNP-s, No Pre serve, 2-Dose Series (Moderna) 01/20/2021,12/23/2020 Diptheria/Tetanus (Adult) 02/28/1979 OPV - Polio Virus Vaccine (Oral) 02/28/1979 Pneumococcal Conjugate Vacci ne, 20-valent ([id number]) 05/01/2023 Pneumococcal Polysaccharide PPV23 (Pneumovax) 10/09/2015 Seasonal [...] money to buy more. Never true 11/09/19 23 Within the past 12 months, t [...] Care Team (Late st Contact Info) Description 09/18/2023 10:00 AM EST Office Visit [facility] [address] [place] [address] Stefany Benitez MD [address] [place] [address] 11/08/2023 4:00 PM EST Office Visit Cardiology, [facility] [address] [place] [address] Daniel Cuevas DO [address] [place] [address] 04/07/2024 4:15 PM EDT Imaging Radiology [facility] [address] [facility] [address] [place] [address] 08/04/2024 10:00 AM EST Office Visit Gynecology/Obstetrics [facility] [address] [place] [address] Nathalia Guerrero PA-C [address] [place] [address] Pending Results Name Type Priority Associated Diagnoses Date /Time COMPREHENSIVE METABOLIC PANEL Lab Routine Encounter for long-term (current) use of other medications 09/15/2023 8:15 AM EST LIPID PANEL WITH DIRECT LDL IF TG IS HIGH Lab Routine Encounter for long-term (current) use of other medications 09/15/2023 8:15 AM EST CBC WITH WBC DIFFERENTIAL Lab Routine Encounter for long-term (current) use of other medications 09/15/2023 8:15 AM EST HEMOGLOBIN A1C Lab Routine Encounter for long-term (current) use of other medications 09/15/2023 8:15 AM EST CBC Lab Routine Encounter for long-term (current) use of other medications 09/15/2023 8:15 AM EST DIFFERENTIAL, AUTOMATED Lab Routine Encounter for long-term (current) use of other medications 09/15/2023 8:15 AM EST Scheduled Procedures Name Priority Associated [...] score < 10) 04/26/2022 04/25/2022 COVID-19 Vaccine ( season) 2023 01/20/2021, 12/23/2020 Mammogram 04/27/2024 04/27/2023, 070 03/2023, 04/04/2022, Additional history exists GFR 06/19/2024 06/19/2023, 08/0 01/2023, 07/15/2022, Additional history exists O2 ASSESSMENT COMPLETED IN PAST YEAR FOR COPD 06/20/2024 06/20/2023 Pap Smear 05/01/2026 05/01/2023, 07/2 11/2019, 02/06/2017, Additional history exists Albumin/Creatinine Ratio 05/05/2026 05/05/2023 Colonoscopy 08/03/2026 08/03/2016, 08/03/2016 Colorectal Cancer Screening 08/03/2026 Cervical Cancer Screening 05/01/2028 HPV/Co-Test 05/01/2028 05/01/2023 *COPD SEVERITY VERIFIED BY PFT Addressed 08/01/2017 (Done elsewhere) Overridden with the intention of not completing the topic Pneumococcal Vaccine: Pediatrics (0 to 5 Years) and At-Risk Patients (6 to 64 Years) Completed 05/01/2023, 10/09/2015 Influenza Vaccine (FLU shot) Completed 06/19/2023, 07/21/2022, 07/03/2020, Additional history exists GARDASIL-HPV IMMUNIZATION SERIES Aged Out No longer eligible based on patient's age to complete this topic MENINGOCOCCAL (MENACTRA/MENVEO) Aged Out No longer eligible based on patient's age to complete this topic documented as of this encounter Medical Devices Not on filedocumented as of this encounter Visit Diagnoses Diagnosis Encounter for long-term (current) use of other medications documented in this encounter Advance Directives Latest [...] the patient have Health Care Power of Two Way Radio Installer? No Care Teams Library Assistant Relationship Specialty Start Date End Date Stefany Benitez MD [address] [place] [address] PCP - General Family Medicine 04/25/22 documented as of this encounter
--- OUTSIDE RECORDS SUMMARY | 2023-10-21 07:02 | External Medical Summary | Summary of Care ---
Author Name Unknown Organization [facility] Address [address] [place] [address] Phone [phone] Care Team Providers Care Cabin Supervisor Name Role Phone Stefany Benitez MD Primary Care Provid er Reason for Visit * Reason Comments Follow Up 3 month return; woul d like her sinus checked due to stuffiness and is concerned for infection Encounter Details Date Type Department Care Team (Latest Contact Info) Description 09/18/2023 10:00 AM EST Office Visit [facility] [address] [place] [address] Stefany Benitez MD [address] [place] [address] Hypovitaminosis D*; Centrilobular emphysema (HCC); Gastroesophageal reflux disease without esophagitis; Anxiety, generalized; Age-related osteoporosis without current pathological fracture; Major depressive disorder, recurrent, moderate (HCC); Decreased GFR Allergies Active Allergy Reactions Criticality [...] as needed for Cough. 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 Heterozygous factor V Leiden mutation 09/30/2014 [...] (Moderna) 01/20/2021,12/23/2020 Pneumococcal Conjugate Vacci ne, 20-valent ([id number]) 05/01/2023 Pneumococcal Polysaccharide PPV23 (Pneumovax) 10/09/2015 Seasonal [...] Sign Reading Time Taken Comments Blood Pressure 140/80 09/18/2023 9:56 AM EST Pulse 71 09/18/2023 9:56 AM EST Temperature 36.8 C (98.2 F) 09/18/2023 9:56 AM ES T Respiratory Rate 18 09/18/2023 9:56 AM EST Oxygen Saturation 94% 09/18/2023 9:56 AM EST Inhaled Oxygen Concentration - - Weight 48.5 kg (107 lb) 09/18/2023 9:56 AM EST Height - - Body Mass Index 17.27 07/11/2023 11:01 AM EDT documented in this [...] as of this encounter Progress Notes * Stefany Benitez MD - 09/18/2023 10:11 AM EST ASSESSMENT / PLAN: Melissa Carpenter is a 58 year old female with PMHx H/o left lung neoplasm / s/p lobectomy / COPD / 39 pack year history / h/o tobacco use in early remission / HTN / MDD / anxiety / bipolar / HLD - here for recheck HTN Well controlled today Follows with cardiology Continue losartan, carvedilol, lasix, amlodipine H/o hyponatremia - improved since DC hctz H/o lung ca / s/p lobectomy / Moderate COPD Stage Ib N0 M0 without evidence of recurrence No acute issues Follows with Pulm (ADONIS Franklin) annually, CT surg Continue incruse ellipta and arnuity / albuterol Gets annual low dose lung CT - last 07/23 negative. MDD / Anxiety / Bipolar affective disorder Follows with [facility]. On paxil, abilify and klonopin HLD Cont statin Former tobacco use Quit 2022 39 pack year history Commended for quitting Osteoporosis Next Dexa 2024, started oral fosamax and 50k vit d weekly 08/2023 LGSIL 2022 Cervical biopsies show mild/low grade changes in cells. Repeat pap in 1 yr - 06/2023 Abnormal mammo 2022 Breast biopsy result 05/15/23 - benign. Resume annual mammo 03/2024 Screenings/anticipatory guidance reviewed include if applicable nutrition, family planning/contraception, physical activity, healthy weight, injury prevention, misuse of tobacco, alcohol and drugs, sexual behavior and STDs, dental health, mental health, immunizations, age appropriate screenings: Next colonoscopy 2025 (10yr recall) / annual mammograms UTD / paps with Financial Accountant,recent h/o LGSIL, next pap due 06/2024 Follow-up: Return in about 6 months (around 03/19/2024). | Check-out note: BMP in 2 weeks please Remaining nonfasting labs in 6 months bef next visit Hypovitaminosis D (Primary) - 25-HYDROXY VITAMIN D; Future; Expected date: 03/19/2024 - COMPREHENSIVE METABOLIC PANEL; Future; Expected date: 03/19/2024 Centrilobular emphysema (HCC) - COMPREHENSIVE METABOLIC PANEL; Future; Expected date: 03/19/2024 Gastroesophageal reflux disease without esophagitis - COMPREHENSIVE METABOLIC PANEL; Future; Expected date: 03/19/2024 Anxiety, generalized - COMPREHENSIVE METABOLIC PANEL; Future; Expected date: 03/19/2024 Age-related osteoporosis without current pathological fracture - 25-HYDROXY VITAMIN D; Future; Expected date: 03/19/2024 - COMPREHENSIVE METABOLIC PANEL; Future; Expected date: 03/19/2024 Major depressive disorder, recurrent, moderate (HCC) - COMPREHENSIVE METABOLIC PANEL; Future; Expected date: 03/19/2024 Decreased GFR - BASIC METABOLIC PANEL; Future; Expected date: 10/02/2023 - COMPREHENSIVE METABOLIC PANEL; Future; Expected date: 03/19/2024 Follow-up: Return in about 6 months (around 03/19/2024). | Check-out note: BMP in 2 weeks please Remaining nonfasting labs in 6 months bef next visit If needed, prefers contact by: Ok to leave message on phone: SUBJECTIVE: Nursing Notes: Bharati Ko LPN 09/18/23 1002 Signed The patient has been properly identified by confirmation of name and date of . Chief Complaint Patient presents with Follow Up 3 month return; would like her sinus checked due to stuffiness and is concerned for infection HPI: Melissa Carpenter is a 58 year old female. Here for recheck. Labs ordered by Psychiatry reviewed today GFR is down from 61 --> 47 on last check Vit D is low Latest Reference Range & Units 05/05/23 08:08 25-Hydroxy Vitamin D >19 ng/mL 20 Latest Reference Range & Units 09/15/23 08:15 Triglycerides <=174 mg/dL 44 Cholesterol <200 mg/dL 128 Non-HDL Cholesterol <=159 mg/dL 70 HDL Cholesterol >49 mg/dL 58 LDL Cholesterol <=129 mg/dL 61 Sodium 135 - 146 mmol/L 136 Potassium 3.5 - 5.1 mmol/L 4.1 Chloride 98 - 107 mmol/L 99 CO2 22 - 32 mmol/L 25 BUN 6 - 20 mg/dL 25 (H) Creatinine 0.5 - 1.0 mg/dL 1.3 (H) Estimated Glomerular Filtration Rate >=60 mL/min 47 (L) Anion Gap 7 - 15 mmol/L 12 Glucose 70 - 120 mg/dL 99 Calcium 8.4 - 10.2 mg/dL 9.0 Protein 6.0 - 8.3 g/dL 6.7 Estimated Average Glucose <126 mg/dL 103 Hemoglobin A1C 4.0 - 5.6 % 5.2 CBC Rpt CBC WITH WBC DIFFERENTIAL Rpt WBC 4.00 - 10.80 K/uL 7.84 HGB 12.0 - 15.3 g/dL 12.5 HCT 36.0 - 45.2 % 37.3 MCV 81.5 - 97.5 fL 89.0 PLT 140 - 400 K/uL 196 Absolute Neutrophils 1.80 - 7.70 K/uL 4.72 Absolute Lymphocytes 1.00 - 4.80 K/ul 2.32 Absolute Monocytes 0.00 - 1.10 K/uL 0.62 Absolute Eosinophils 0.00 - 0.70 K/uL 0.14 Absolute Basophils 0.00 - 0.20 K/uL 0.04 Albumin 3.8 - 5.0 g/dL 4.4 AST 10 - 35 U/L 18 ALT 10 - 35 U/L 17 Alkaline Phosphatase 35 - 130 U/L 83 Bilirubin, Total <=1.2 mg/dL 0.4 (H): Data is abnormally high (L): Data is abnormally low Rpt: View report in Results Review for more information Reviewed sources 1- Low dose lung CT IMPRESSION: 1. LungRADS Category 2: Negative, benign appearance or behavior. 2. LungRADS Category S: Negative. No new/unknown potentially significant incidental findings requiring additional evaluation. 3. Incidental findings as above. RECOMMENDATIONS: Continued routine annual CT lung cancer screening. 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 Heterozygous factor V Leiden mutation (HCC) D68.51 Moderate COPD (chronic obstructive pulmonary disease) (HCC) J44.9 Gastroesophageal reflux disease without esophagitis K21.9 Depression with anxiety F41.8 Vitamin D deficiency E55.9 Family history of thyroid disease Z83.49 Rhinitis, nonallergic J31.0 Cigarette nicotine dependence in remission F17.211 Abdominal aortic atherosclerosis (HCC) I70.0 Nodule of lower lobe of right lung R91.1 Hypertension goal BP (blood pressure) < 140/90 I10 Major depressive disorder, recurrent, moderate (HCC) F33.1 Anxiety, generalized F41.1 Bipolar disorder (HCC) F31.9 Dyslipidemia, goal LDL below 70 E78.5 History of lobectomy of lung Z90.2 Postmenopausal status, age-related Z78.0 Dysplasia of cervix, low grade (LIZETTE 1) N87.0 History of lung cancer Z85.118 Centrilobular emphysema (HCC) J43.2 Age-related osteoporosis without current pathological fracture M81.0 Current Outpatient Medications Medication Sig Dispense Refill albuterol (PROVENTIL HFA) 108 (90 BASE) MCG/ACT inhaler Inhale 2 Puffs by mouth every 6 hours as needed. albuterol sulfate (PROVENTIL) (2.5 MG/3ML) 0.083% nebulizer solution Inhale 1 Vial via nebulizer every 4 hours as needed for Wheezing. 120 Vial 11 clonazePAM (KLONOPIN) 0.5 MG Tablet Take 1 Tab by mouth 2 times a day as needed for Anxiety. 60 Tab0 Aspirin 81 MG Tablet Take 1 Tab by mouth daily. 34 Tab 5 ARIPiprazole (ABILIFY) 5 MG Tablet Take 1 Tab by mouth daily. 30 Tab 0 Cetirizine HCl 10 MG Capsule Take 1 Capsule by mouth in the morning. Zoster Vac Recomb Adjuvanted 50 MCG/0.5ML Intramuscular Suspension Reconstituted (Shingrix) Inject 0.5 mL into a large muscle now and repeat dose in 60 to 180 days 1 Each 1 Acetaminophen ER 650 MG Oral Tablet Extended Release Take 1 Tablet by mouth every 8 hours as needed. Carvedilol 25 MG Oral Tablet (Coreg) Take by mouth 1 Tablet in the morning AND 1 Tablet before bedtime. 180 Tablet 11 PARoxetine HCl 40 MG Oral Tablet (pAXil) Take 1 Tablet by mouth in the morning. Benzonatate 100 MG Oral Capsule (Tessalon Perles) Take 1 Capsule by mouth 3 times a day as needed for Cough. Umeclidinium [place] 62.5 MCG/ACT Inhalation Aerosol Powder Breath Activated [...] prior to dental appointment. 4 Capsule 0 No current facility-administered medications for this visit. OBJECTIVE: BP 140/80 | Pulse 71 | Temp 36.8 C (98.2 F) | Resp 18 | Wt 48.5 kg (107 lb) | LMP 04/06/2020 | SpO2 94% | BMI 17.27 kg/m | BSA 1.5 m Vitals reviewed and is normotensive / afebrile / and not tachycardic General: No acute distress. Neuro: Alert Pleasant & interactive. Respiratory: Good inspiratory effort, no labored breathing. CTAB CV: RRR no M R G HEENT: Conjunctivae appear clear. No swelling noted face or lips. Skin: No rash visible on exposed skin areas, normal coloration & appears dry. Psych: Normal affect. Fluent speech. I spent a total of 40-54 minutes (exact time 40 mins) on the date of service in preparation, delivery, and documentation of the care provided to Melissa Carpenter excluding any time spent in the performance of separately billed services. Stefany Benitez MD [address] [address] There are no Patient Instructions on file for this visit. documented in this encounter Nursing Notes * Bharati Ko LPN - 09/18/2023 10:02 AM EST The patient has been properly identified by confirmation of name and date of . Chief Complaint Patient presents with Follow Up 3 month return; would like her sinus checked due to stuffiness and is concerned for infection documented in this encounter Plan of Treatment Upcoming Encounters Date Type Department Care Team (Late st Contact Info) Description 10/02/2023 4:00 PM EST Laboratory Laboratory, [place] [address] [place] [facility] [address] [facility] [address] [place] [facility] [address] 11/08/2023 4:00 PM EST Office Visit [facility], [facility] [address] [facility] [address] Daniel Cuevas DO [address] [facility] [place] [address] 11/14/2023 4:00 PM EST Laboratory Laboratory, [place] [address] [place] [facility] [address] [facility] [address] [place] [facility] [address] 11/19/2023 3:40 PM EST Office Visit Family Practice, [place] [address] [place] [facility] [address] Stefany Benitez MD [address] [place] [address] 04/07/2024 4:15 PM EDT Imaging Radiology [facility] [address] [facility] [place] [address] 08/04/2024 10:00 AM EST Office Visit Gynecology/Obstetrics [facility] [address] [facility] [place] [address] Nathalia Guerrero PA-C [address] [facility] [place] [address] Scheduled Orders Name Type Priority Associated Diagnoses Orde r Schedule 25-HYDROXY VITAMIN D Lab Routine Age-related osteoporosis without current pathological fracture Hypovitaminosis D Expected: 03/19/2024 (Approximate), Expires: 10/19/2024 BASIC METABOLIC PANEL Lab Routine Decreased GFR Expected: 10/02/2023 (Approximate), Expires: 10/19/2024 COMPREHENSIVE METABOLIC PANEL Lab Routine Centrilobular emphysema (HCC) Gastroesophageal reflux disease without esophagitis Anxiety, generalized Age-related osteoporosis without current pathological fracture Major depressive disorder, recurrent, moderate (HCC) Hypovitaminosis D Decreased GFR Expected: 03/19/2024 (Approximate), Expires: 10/19/2024 Scheduled Procedures Name Priority Associated Diagnoses Date/Ti [...] Scan 06/05/2025 06/05/2023 Pap Smear 05/01/2026 05/01/2023, 072 11/2019, 02/06/2017, Additional history exists Albumin/Creatinine Ratio [...] D LEVEL ONCE IN A LIFETIME-USE SMARTSET# [id number] Completed 05/05/2023, 08/16/2017, 12/20/2016 Influenza Vaccine (FLU shot) Completed 06/19/2023, 07/21/2022, 07/03/2020, Additional history exists GARDASIL-HPV IMMUNIZATION SERIES Aged Out No longer eligible based on patient's age to complete this topic MENINGOCOCCAL (MENACTRA/MENVEO) Aged Out No longer eligible based on patient's age to complete this topic documented as of this encounter Medical Devices Not on filedocumented as of this encounter Visit Diagnoses Diagnosis Hypovitaminosis D- Primary Unspecified vitamin D deficiency Centrilobular emphysema (HCC) Other emphysema Gastroesophageal reflux disease without esophagitis Esophageal reflux Anxiety, generalized Generalized anxiety disorder Age-related osteoporosis without current pathological fracture Senile osteoporosis Major depressive disorder, recurrent, moderate (HCC) Major depressive disorder, recurrent episode, moderate Decreased GFR Nonspecific abnormal results of kidney [...] the patient have Health Care Power of Senior Validation Engineer? No Care Teams Cabin Supervisor Relationship Specialty Start Date End Date Stefany Benitez MD [address] [facility] [place] [address] PCP - General Family Medicine 04/25/22 documented as of this encounter"
--- OUTSIDE RECORDS SUMMARY | 2023-10-21 07:02 | External Medical Summary ---
Author Name Unknown Address Unknown Organization [id number]:[facility] [address] [place] [address] Laboratory Report Ordering Provider Test Date Status DONNA GOLDSTEIN 09/15/2023 08:15:48 Final Observation Date Value Abnormality Reference (Units ) Status BUN 09/15/2023 08:15:48 25 Above high normal 6-20 (mg/dL) Final Creatinine 09/15/2023 08:15:48 1.3 Above high normal 0.5-1.0 (mg/dL) Final Glomerular filtration rate/1.73 sq M.predicted [Volume Rate/Area] in Serum, Plasma or Blood by Creatinine-based formula (CKD-EPI) 09/15/2023 08:15:48 47 Below low normal >=60 (mL/min) Final eGFR is calculated based on the CKD-EPI 2020 equation SODIUM 09/15/2023 08:15:48 136 135-146 (m mol/L) Final Potassium 09/15/2023 08:15:48 4.1 3.5-5.1 (m mol/L) Final Cl 09/15/2023 08:15:48 99 98-107 (mm ol/L) Final CO2 09/15/2023 08:15:48 25 22-32 (mmo l/L) Final Anion gap 09/15/2023 08:15:48 12 7-15 (mmol /L) Final Glucose 09/15/2023 08:15:48 99 70-120 (mg /dL) Final Albumin 09/15/2023 08:15:48 4.4 3.8-5.0 (g /dL) Final AST (Aspartate aminotransferase) 09/15/2023 08:15:48 18 10-35 (U/L) Final Alk Phos 09/15/2023 08:15:48 83 35-130 (U/ L) Final Bilirubin, Total 09/15/2023 08:15:48 0.4 <=1 .2 (mg/dL) Final Calcium 09/15/2023 08:15:48 9.0 8.4-10.2 ( mg/dL) Final Protein 09/15/2023 08:15:48 6.7 6.0-8.3 (g /dL) Final ALT (Alanine aminotransferase) 09/15/2023 08:15:48 17 10-35 (U/L) Final Performing Location [facility]ATORY [place] [address] [place] [address]
--- OUTSIDE RECORDS SUMMARY | 2023-10-21 07:02 | External Medical Summary | Summary of Care ---
Author Name Unknown Organization [facility] Address [address] [facility] [address] Phone [phone] Care Team Providers Care Management Specialist Name Role Phone Stefany Benitez MD Primary Care Provid er Reason for Visit * Reason Comments Outpatient Testing Encounter Details Date Type Department Care Team (Late st Contact Info) Description 09/15/2023 8:00 AM EST Laboratory Laboratory, [facility] [address] [place] [address] [facility] [address] [place] [address] Encounter for long-term (current) use of [...] as needed for Cough. 0 Active Umeclidinium [place] 62.5 MCG/ACT Inhalation Aerosol Powder Breath Activated [...] 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 [id number] mutation Heterozygous factor V Leiden mutation 09/30/2014 [...] (Oral) 02/28/1979 Pneumococcal Conjugate Vacci ne, 20-valent ([id number]) 05/01/2023 Pneumococcal Polysaccharide PPV23 (Pneumovax) 10/09/2015 Seasonal [...] Description 09/18/2023 10:00 AM EST Office Visit [facility] [address] [place] [address] Stefany Benitez MD [address] [place] [address] 11/08/2023 4:00 PM EST Office Visit Cardiology, [facility] [address] [place] [address] Daniel Cuevas DO [address] [place] [address] 04/07/2024 4:15 PM EDT Imaging Radiology [facility] [facility] [address] [place] [address] 08/04/2024 10:00 AM EST Office Visit Gynecology/Obstetrics [facility] [address] [place] [address] Nathalia Guerrero PA-C [address] [place] [address] Pending Results Name Type Priority Associated Diagnoses [...] 07/0 03/2023, 04/04/2022, Additional history exists GFR 06/19/2024 06/19/2023, 08/0 01/2023, 07/15/2022, Additional history exists O2 ASSESSMENT COMPLETED IN PAST YEAR FOR COPD 06/20/2024 06/20/2023 Pap Smear 05/01/2026 05/01/2023, 04/01, 02/06/2017, Additional [...] Not on filedocumented as of this encounter Procedures Procedure Name Priority Date/Time Associated Diagnosis Comments DIFFERENTIAL, AUTOMATED Routine 09/15/2023 8:15 AM EST Encounter for long-term (current) use of other medications CBC Routine 09/15/2023 8:15 AM EST Encounter for long-term (current) use of other medications CBC Routine 09/15/2023 8:15 AM EST Encounter for long-term (current) use of other medications documented in this encounter Results * DIFFERENTIAL, AUTOMATED (09/15/2023 8:15 AM EST) WBC 7.84 4.00 - 10.80 K/uL 09/15/2023 8:32 AM EST [facility] [place] [facility] Neutrophils % 60.2 40.0 - 75.0 % 09/15/2023 8:32 AM EST [facility] [place] [facility] Lymphocytes % 29.6 18.0 - 42.0 % 09/15/2023 8:32 AM EST [facility] [place] [facility] Monocytes % 7.9 1.0 - 11.0 % 09/15/2023 8:32 AM EST [facility] [place] [address] Eosinophils % 1.8 0.0 - 6.0 % 09/15/2023 8:32 AM EST [facility] [place] [facility] Basophils % 0.5 0.0 - 2.0 % 09/15/2023 8:32 AM EST [facility] [place] [address] Absolute Neutrophils 4.72 1.80 - 7.70 K/uL 09/15/2023 8:32 AM EST [facility] [place] [address] Absolute Lymphocytes 2.32 1.00 - 4.80 K/ul 09/15/2023 8:32 AM EST [facility] [place] [address] Absolute Monocytes 0.62 0.00 - 1.10 K/uL 09/15/2023 8:32 AM EST [facility] [place] [address] Absolute Eosinophils 0.14 0.00 - 0.70 K/uL 09/15/2023 8:32 AM EST [facility] [place] [address] Absolute Basophils 0.04 0.00 - 0.20 K/uL 09/15/2023 8:32 AM EST [facility] [place] [facility] Blood Venous blood specimen / Unknown Venipuncture / Unknown 09/15/2023 8:15 AM EST 09/15/2023 8:15 AM EST Genie CANTRELL [facility] BLOOD [facility] [address] [place] [id number] * CBC (09/15/2023 8:15 AM EST) WBC 7.84 4.00 - 10.80 K/uL 09/15/2023 8:32 AM EST [facility] [place] [address] RBC 4.19 3.85 - 5.15 M/uL 09/15/2023 8:32 AM EST [facility] [place] [address] HGB 12.5 12.0 - 15.3 g/dL 09/15/2023 8:32 AM EST [facility] [place] [address] HCT 37.3 36.0 - 45.2 % 09/15/2023 8:32 AM EST [facility] [place] [address] MCV 89.0 81.5 - 97.5 fL 09/15/2023 8:32 AM EST [facility] [place] [address] MCH 29.8 27.0 - 34.0 pg 09/15/2023 8:32 AM EST [facility] [place] [facility] MCHC 33.5 32.0 - 36.0 g/dL 09/15/2023 8:32 AM EST [facility] [place] [address] RDW 15.0 11.5 - 15.5 % 09/15/2023 8:32 AM EST [facility] [place] [address] PLT 196 140 - 400 K/uL 09/15/2023 8:32 AM EST [facility] [place] [facility] MPV 11.0 6.6 - 11.1 fL 09/15/2023 8:32 AM EST [facility] [place] [facility] Blood Venous blood specimen / Unknown Venipuncture / Unknown 09/15/2023 8:15 AM EST 09/15/2023 8:15 AM EST Genie CANTRELL LAB BLOOD [facility] [place] [address] [facility] [place] [address] documented in this encounter Visit Diagnoses Diagnosis Encounter for [...] the patient have Health Care Power of Physical Geographer? No Care Teams Management Specialist Relationship Specialty Start Date End Date Stefany Benitez MD [address] [facility] [place] [address] PCP - General Family Medicine 04/25/22 documented as of this encounter
--- OUTSIDE RECORDS SUMMARY | 2023-10-21 07:02 | External Medical Summary ---
Author Name Unknown Address Unknown Organization K01:[facility] [place] [address] [facility] [address] Laboratory Report Ordering Provider Test Date Status JENNI GOLDSTEINCH 09/15/2023 08:15:48 Final Observation Date Value Abnormality Reference (Units ) Status HbA1C 09/15/2023 08:15:48 5.2 4.0-5.6 (% ) Final The use of HbA1c to monitor glycemic status is based on normal hemoglobin and HbA composition. This test should not be used in patients with abnormal hemoglobin that affects the half life of the red blood cell or the in vivo glycation rates. Glucose, estimated average 09/15/2023 08:15:48 103 <126 (mg/dL) Final Performing Location [facility] [place] [facility] [address] [facility] [place] [address]
--- OUTSIDE RECORDS SUMMARY | 2023-10-21 07:02 | External Medical Summary | Summary of Care ---
Author Name Unknown Organization [facility] Address [address] [place] [address] Phone [phone] Care Team Providers Care Flash Drier Operator Name Role Phone Stefany Benitez MD Primary Care Provid er Reason for Visit * Reason Comments Follow Up 3 month return; woul d like her sinus checked due to stuffiness and is concerned for infection Encounter Details Date Type Department Care Team (Latest Contact Info) Description 09/18/2023 10:00 AM EST Office Visit [facility] [address] [place] [address] Stefany Benitez MD [address] [place] [address] Hypovitaminosis D*; Centrilobular emphysema (HCC); [...] as needed for Cough. 0 Active Umeclidinium Rew 62.5 MCG/ACT Inhalation Aerosol Powder Breath Activated [...] 0 08/21/2023 Active Vitamin D3 1.25 MG (76319 UT) Oral CapsuleIndications:A ge-related osteoporosis without current [...] 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 [id number] mutation Heterozygous factor V Leiden mutation 09/30/2014 [...] (Moderna) 01/20/2021,12/23/2020 Pneumococcal Conjugate Vacci ne, 20-valent ([id number]) 05/01/2023 Pneumococcal Polysaccharide PPV23 (Pneumovax) 10/09/2015 Seasonal [...] / annual mammograms UTD / paps with Director Process Improvement,recent h/o LGSIL, next pap due 06/2024 Follow-up: [...] screening. 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 Umeclidinium Rew 62.5 MCG/ACT Inhalation Aerosol Powder Breath Activated [...] of separately billed services. Stefany Benitez MD [address] [address] There are no Patient Instructions on file [...] 11/08/2023 4:00 PM EST Office Visit Cardiology, [facility] [address] [place] [address] Daniel Cuevas, [address] [place] [address] 04/07/2024 4:15 PM EDT Imaging [facility] [address] [place] [address] 08/04/2024 10:00 AM EST Office Visit Gynecology/Obstetrics [facility] [address] [place] [address] Nathalia Guerrero PA-C [address] [place] [address] Scheduled Orders Name Type Priority Associated Diagnoses [...] score < 10) 04/26/2022 04/25/2022 COVID-19 Vaccine (3 - 2022- season) 2023 01/20/2021, 12/23/2020 Mammogram 04/27/2024 04/27/2023, 03/2023, 04/04/2022, Additional history exists GFR 09/15/2024 [...] D LEVEL ONCE IN A LIFETIME-USE SMARTSET# [id number] Completed 05/05/2023, 08/16/2017, 12/20/2016 Influenza Vaccine (FLU [...] the patient have Health Care Power of Coppersmith Apprentice? No Care Teams Flash Drier Operator Relationship Specialty Start Date End Date Stefany Benitez MD [address] [place] [address] PCP - General Family Medicine 04/25/22 documented as of this encounter"
--- OUTSIDE RECORDS SUMMARY | 2023-10-21 07:02 | External Medical Summary | Summary of Care ---
Author Name Unknown Organization [facility] Address [address] [place] [address] Phone [phone] Care Team Providers Care Vascular Ultrasound Technologist Name Role Phone Stefany Benitez MD Primary Care Provid er Reason for Visit * Reason Onset Date Comments Order Request 08/15/2023 Rx Encounter Details Date Type Department Care Team ([facility] st Contact Info) Description 08/15/2023 Telephone [facility] [address] [place] [address] Stefany Benitez MD [address] [place] [address] Order Request (Rx) Allergies Active Allergy Reactions Criticality Noted Date [...] as of this encounter (statuses as of 08/21/2023) Medications Medication Sig Dispensed Refills Start Date [...] as needed for Cough. 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 Condyloma acuminatum Moderate COPD (chronic obstructive pulmonary dis ease) Overview: Dr Peoples Gastroesophageal reflux disease without esophagi tis Depression with anxiety documented as of this encounter (statuses as of 08/21/2023) Resolved Problems Problem Noted Date Diagnosed Date [...] as of this encounter (statuses as of 08/21/2023) Immunizations Name Administration Dates Next Due COVID-19 mRNA, LNP-s, No Pre serve, 2-Dose Series (Moderna) 01/20/2021,12/23/2020 Pneumococcal Conjugate Vacci ne, 20-valent ([id number]) 05/01/2023 Pneumococcal Polysaccharide PPV23 (Pneumovax) 10/09/2015 SEASONAL INFLUENZA, PF, 6 M & Above, IM , (FLULAVAL or FLUZONE) 07/21/2022,06/17/2019 Seasonal Influenza Virus Vac cine, Unspecified Formulation 07/19/2018 Seasonal Influenza, Quadriva lent Hd (Fluzone Hd) [...] encounter Miscellaneous Notes * Telephone Encounter - Stefany Benitez MD - 08/21/2023 6:09 AM EST Note Clindamycin is no longer recommended for antibiotic prophylaxis prior to dental procedures. Keflex sent to patient's pharmacy. * Telephone Encounter - Pallavi Molina CCMA - 08/15/2023 3:35 PM EST Please advise as below. Thank you. * Telephone Encounter - Debi Mendoza OSA - 08/15/2023 2:23 PM EST An order was requested for this patient. Name of Requesting Provider: Pt request Order Requested: Antibiotic-Clindamycin 150mg-4 tabs 1 hr prior to appt Diagnosis/Reason for Request: Pts new dentist adv that due to her hx pt would need rx prior to her visit with them on 09.20.23 If order request is for Mammogram: Is the patient having any breast symptoms? N/A Is there a chance of ? N/A Has the patient had any breast problems in the past? NA What location AND department does the patient wish to have their order completed at? [facility] Fax Number, if applicable: n/a Call Back Number: [phone] If the caller is not a current patient, please advise the patient to call their current PCP to havethe order's prior to being seen in our office. The patient was informed that our providers would not order anything (medication, labs, etc.) prior to being seen. documented in this encounter Plan of Treatment Upcoming Encounters Date Type Department Care Team (Late st Contact Info) Description 09/18/2023 10:00 AM EST Office Visit [facility] [address] [place] [facility] [place] [address] Stefany Benitez MD [address] [place] [address] 11/08/2023 4:00 PM EST Office Visit Cardiology, [facility] [address] [place] [address] Daniel Cuevas DO [address] [place] [address] 04/07/2024 4:15 PM EDT Imaging Radiology [facility] 1st [facility] [address] [place] [address] 08/04/2024 10:00 AM EST Office Visit Gynecology/Obstetrics [facility] [address] [place] [address] Nathalia Guerrero PA-C [address] [employer] [place] [address] Scheduled Procedures Name Priority Associated Diagnoses Date/Ti [...] patient have Health Care Power of Senior Specialist? No Care Teams Vascular Ultrasound Technologist Relationship Specialty Start Date End Date Stefany Beintez MD [address] [place] [address] PCP - General Family Medicine 04/25/22 documented as of this encounter
--- OUTSIDE RECORDS SUMMARY | 2023-10-21 07:02 | External Medical Summary ---
Author Name Unknown Address Unknown Organization [id number] [facility] [address] [place] [address] Laboratory Report Ordering Provider Test Date Status DONNA GOLDSTEIN 09/15/2023 08:15:48 Final Observation Date Value Abnormality Reference (Units ) Status SYNC LEUKOCYTES IN BLOOD BY AUTOMATED COUNT 09/15/2023 08:15:48 7.84 4.00-10.80 (K/uL) Final Segs 09/15/2023 08:15:48 60.2 40.0-75.0 (%) Final Lymphs % 09/15/2023 08:15:48 29.6 18.0-42.0 (%) Final Monos 09/15/2023 08:15:48 7.9 1.0-11.0 (%) Final Eosinophils 09/15/2023 08:15:48 1.8 0.0-6.0 (%) Final Basos 09/15/2023 08:15:48 0.5 0.0-2.0 (%) Final Absolute Segs 09/15/2023 08:15:48 4.72 1.80-7.70 (K/uL) Final Lymphs, absolute 09/15/2023 08:15:48 2.32 1.00-4.80 (K/ul) Final Monos, Abs 09/15/2023 08:15:48 0.62 0.00-1.10 (K/uL) Final Eos, Abs 09/15/2023 08:15:48 0.14 0.00-0.70 (K/uL) Final Basos, Abs 09/15/2023 08:15:48 0.04 0.00-0.20 (K/uL) Final Performing Location [facility] [address] [place] [address]
--- OUTSIDE RECORDS SUMMARY | 2023-10-21 07:02 | External Medical Summary ---
Author Name Unknown Address Unknown Organization K01:[facility] - [address] [facility] [address] Laboratory Report Ordering Provider Test Date Status DONNA GOLDSTEIN 09/15/2023 08:15:48 Final Observation Date Value Abnormality Reference (Units ) Status Triglyceride 09/15/2023 08:15:48 44 <=174 ( mg/dL) Final Triglyceride Reference Range s (mg/dL):
<150 Acceptable
150-174 Borderline high
175-499 High
>=500 Very high Cholesterol 09/15/2023 08:15:48 128 <200 (mg /dL) Final Total Cholesterol Reference Ranges (mg/dL):
<200 Desirable
200-239 Borderline high
>=240 High HDL 09/15/2023 08:15:48 58 >49 (mg/dL ) Final HDL Cholesterol Reference Ra nges (mg/dL):
>=60 High (Desirable)
<50 Low (Undesirable) For Females
<40 Low (Undesirable) For Males NON-HDL CHOLESTEROL 09/15/2023 08:15:48 70 <=159 (mg/dL) Final Non-HDL Cholesterol Referenc e Range (mg/dL):
<100 Target level for high risk ASCVD patient
<130 Optimal for general population
130-159 Near optimal for general population
160-189 Borderline High
190-219 High
>=220 Very High LDL, (calculated) 09/15/2023 08:15:48 61 <= 129 (mg/dL) Final LDL Cholesterol Reference Ra nges (mg/dL):
<70 Target level for high risk ASCVD patient
<100 Optimal for general population
100-129 Near optimal for general population
130-159 Borderline high
160-189 High
>=190 Very high Performing Location LAB[facility]ATORY [facility] - [address] [facility] [address]
--- OUTSIDE RECORDS SUMMARY | 2023-10-21 07:02 | External Medical Summary | Summary of Care ---
Author Name Unknown Organization [facility] Address [address] [place] [address] Phone [phone] Care Team Providers Care Orthopaedic Technologist Name Role Phone Stefany Benitez MD Primary Care Provid er Encounter Details Date Type Department Care Team (Late st Contact Info) Description 05/15/2023 Telephone Radiology [facility] [address] [facility] [place] [address] Stefany Benitez MD [address] [place], [place] [id number] Allergies Active Allergy Reactions Criticality Noted Date [...] as of this encounter (statuses as of 08/14/2023) Medications Medication Sig Dispensed Refills Start Date [...] as of this encounter (statuses as of 08/14/2023) Active Problems Problem Noted Date Diagnosed Date [...] 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 Heterozygous factor V Leiden mutation 09/30/2014 Fibroadenoma of breast 03/22/2012 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 Condyloma acuminatum Moderate COPD (chronic obstructive pulmonary dis ease) Overview: Dr Peoples Gastroesophageal reflux disease without esophagi tis Depression with anxiety documented as of this encounter (statuses as of 08/14/2023) Resolved Problems Problem Noted Date Diagnosed Date [...] as of this encounter (statuses as of 08/14/2023) Immunizations Name Administration Dates Next Due COVID-19 mRNA, LNP-s, No Pre serve, 2-Dose Series (Moderna) 01/20/2021,12/23/2020 Pneumococcal Conjugate Vacci ne, 20-valent ([id number]) 05/01/2023 Pneumococcal Polysaccharide PPV23 (Pneumovax) 10/09/2015 SEASONAL INFLUENZA, PF, 6 M & Above, IM , (FLULAVAL or FLUZONE) 07/21/2022,06/17/2019 Seasonal Influenza Virus Vac cine, Unspecified Formulation 07/19/2018 Seasonal Influenza, Quadriva lent, No Preserve, IM 07/03/2020,07/19/2016 Seasonal Influenza, Split, I IV3, With Preserve, Inj 08/01/2017,09/16/2015,08/10/2009 TDAP (age 10 and older)(Boostrix) 10/13/2009 documented as of this encounter Social History Tobacco Use Types Packs/Day Years Used Date Smoking Tobacco: Former Cigarettes 1 39 1 984 - 04/24/2023 Smokeless Tobacco: Never Comments:boyfriend smokes, m om smokes Alcohol Use Standard Drinks/Week Comments Not Currently 0 (1 standard drink = 0.6 oz pur e alcohol) 2 drinks every 6-12 month PHQ-2 Answer Date Recorded PHQ Adult Total Score 14 04/25/2022 Hunger Vital Sign Answer Date Recorded Worried About Running Out of Food in the Last Ye ar Never true 06/17/2019 Ran Out of Food in the Last Year Never true 06/17/2019 Sex and Gender Information Value Date Recorded [...] encounter Miscellaneous Notes * Telephone Encounter - Sary Shah RDMS - 05/15/2023 3:49 PM EDT Following completion of right breast ultrasound guided core biopsy, discharge instructions were provided and patient expressed understanding. Specimen was delivered to the lab at 2:15pm. documented in this encounter Plan of Treatment Upcoming Encounters Date Type Department Care Team (Late st Contact Info) Description 09/18/2023 10:00 AM EST Office [facility] [address] [facility] [address] Stefany Benitez MD [address] [facility] [address] 11/08/2023 4:00 PM EST Office Visit Cardiology, [facility] [address] [place] [address] Daniel Cuevas, [address] [place] [address] 04/07/2024 4:15 PM EDT Imaging Radiology [facility] 1st Floor, [place] [address] [place] [address] 08/04/2024 10:00 AM EST Office Visit Gynecology/Obstetrics [facility] [address] [place] [address] Nathalia Guerrero PA-C [address] [place] [address] Scheduled Procedures Name Priority Associated Diagnoses Date/Ti [...] the patient have Health Care Power of Microbiology Soil Scientist? No Care Teams Orthopaedic Technologist Relationship Specialty Start Date End Date Stefany Benitez MD [address] [place] [address] PCP - General Family Medicine 04/25/22 documented as of this encounter
--- OUTSIDE RECORDS SUMMARY | 2023-10-21 07:02 | External Medical Summary | Summary of Care ---
Author Name Unknown Organization [facility] Address [address] [facility] [place] [address] Phone [phone] Care Team Providers Care Filament Welder Name Role Phone Stefany Benitez MD Primary Care Provid er Reason for Visit * Reason Onset Date Comments Advice 06/28/2023 Encounter Details Date Type Department Care Team (Late st Contact Info) Description 06/28/2023 Telephone Cardiology, [facility] [address] [place] [address] Daniel Cuevas, [address] [place] [address] Advice Allergies Active Allergy Reactions Criticality Noted Date [...] as of this encounter (statuses as of 08/08/2023) Medications Medication Sig Dispensed Refills Start Date End Date Status albuterol (PROVENTIL HFA) 108 (90 BASE) MCG/ACT inhaler Inhale 2 Puffs by mouth every 6 hours as needed. 0 Active albuterol sulfate (PROVENTIL) (2.5 MG/3ML) 0.083% nebulizer solution Inhale 1 Vial via nebulizer every 4 hours as needed for Wheezing. 120 Vial 11 6 Active clonazePAM (KLONOPIN) 0.5 MG TabletIndications: Depression with anxiety Take 1 Tab by mouth [...] Recomb Adjuvanted 50 MCG/0.5ML Intramuscular Suspension Reconstituted (Shingrix)Indicati ons:Need for vaccination for zoster Inject 0.5 mL [...] Tablet before bedtime. 180 Tablet 11 2 Active PARoxetine HCl 40 MG Oral Tablet (pAXil) Take 1 Tablet by mouth in the morning. 0 Active Benzonatate 100 MG Oral Capsule (Tessalon Perles) Take 1 Capsule by mouth 3 times a day as needed for Cough. 0 Active Umeclidinium [place] 62.5 MCG/ACT Inhalation Aerosol Powder Breath Activated (INCRUSE ellipta) Inhale 1 Puff by mouth in the morning. 0 Active amLODIPine Besylate 10 MG Oral Tablet (Norvasc)Indicatio ns:HTN, goal below 140/90 TAKE 1 TABLET BY MOUTH ONCE DAILY 90 Tablet 3 3 Active Losartan Potassium 50 MG Oral Tablet (Cozaar) TAKE 1 TABLET BY MOUTH TWICE DAILY 60 Tablet 11 2 07/05/20 23 Discontinued Atorvastatin Calcium 20 MG Oral Tablet (Lipitor)Indicatio ns:Dyslipidemia, goal LDL below 70 TAKE 1 TABLET BY MOUTH ONCE DAILY 30 Tablet 11 2 07/30/20 23 Discontinued Terazosin HCl 2 MG Oral Capsule Take 1 Capsule by mouth at bedtime. 0 07/04/20 23 Discontinued(Ref ill) hydrALAZINE HCl 50 MG Oral Tablet (Apresoline) Take 1 Tablet by mouth in the morning and 1 Tablet at noon and 1 Tablet before bedtime. 0 07/04/20 23 Discontinued(Ref ill) Furosemide 20 MG Oral Tablet Take 1 Tablet by mouth in the morning and 1 Tablet before bedtime. 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 Condyloma acuminatum Moderate COPD (chronic obstructive pulmonary dis ease) Overview: Dr Peoples Gastroesophageal reflux disease without esophagi tis Depression with anxiety documented as of this encounter (statuses as of 08/08/2023) Resolved Problems Problem Noted Date Diagnosed Date [...] as of this encounter (statuses as of 08/08/2023) Immunizations Name Administration Dates Next Due COVID-19 mRNA, LNP-s, No Pre serve, 2-Dose Series (Moderna) 01/20/2021,12/23/2020 Pneumococcal Conjugate Vacci ne, 20-valent ([id number]) 05/01/2023 Pneumococcal Polysaccharide PPV23 (Pneumovax) 10/09/2015 SEASONAL [...] or making decisions? (5 years old or older No 09/11/2015 documented as of this encounter Miscellaneous Notes * Telephone Encounter - Nathaniel Mccormick RN - 07/04/2023 2:48 PM EDT Left message on home phone to return call to the clinic in regards to her medication question. * Telephone Encounter - Jeaneth Álvarez OSA - 06/28/2023 11:16 AM EDT Pt of Dr Cuevas requesting a call back from a nurse concerning her medication Terazosin. She needs a refill but has some questions regarding the way the prev script was written and the directions on the bottle, which are different. Can someone please reach out to her at [phone]. Thanks, YOLIS Rodrigez documented in this encounter Plan of Treatment Upcoming Encounters Date Type Department Care Team (Late st Contact Info) Description 09/18/2023 10:00 AM EST Office Visit [facility] [address] [place] [address] Stefany Benitez MD [address] [place] [address] 11/08/2023 4:00 PM EST Office Visit Cardiology, [facility] [address] [facility] [place] [address] Daniel Cuevas, [address] [place] [address] 04/07/2024 4:15 PM EDT Imaging Radiology [address] [place] [address] 08/04/2024 10:00 AM EST Office Visit Gynecology/Obstetrics [facility] [address] [place] [address] Nathalia Guerrero PA-C [address] [place] [address] Scheduled Procedures Name Priority Associated Diagnoses Date/Ti [...] the patient have Health Care Power of Chair Spring Assembler? No Care Teams Filament Welder Relationship Specialty Start Date End Date Stefany Benitez MD [address] [place] [address] PCP - General Family Medicine 04/25/22 documented as of this encounter
--- OUTSIDE RECORDS SUMMARY | 2023-10-21 07:02 | External Medical Summary ---
Author Name Unknown Address Unknown Organization [facility] [address] - [address] [place] [address] Laboratory Report Ordering Provider Test Date Status DONNA GOLDSTEIN 09/15/2023 08:15:48 Final Observation Date Value Abnormality Reference (Units ) Status WBC, Total 09/15/2023 08:15:48 7.84 4.00-10.8 0 (K/uL) Final RBC 09/15/2023 08:15:48 4.19 3.85-5.15 (M/uL) Final Hemoglobin 09/15/2023 08:15:48 12.5 12.0-15.3 (g/dL) Final HCT 09/15/2023 08:15:48 37.3 36.0-45.2 (%) Final MCV 09/15/2023 08:15:48 89.0 81.5-97.5 (fL) Final MCH 09/15/2023 08:15:48 29.8 27.0-34.0 (pg) Final MCHC 09/15/2023 08:15:48 33.5 32.0-36.0 (g/dL) Final RDW 09/15/2023 08:15:48 15.0 11.5-15.5 (%) Final Platelets 09/15/2023 08:15:48 196 140-400 (K /uL) Final MPV 09/15/2023 08:15:48 11.0 6.6-11.1 ( fL) Final Performing Location [facility] [place] [address] [place] [address]
--- OUTSIDE RECORDS SUMMARY | 2023-10-21 07:02 | External Medical Summary | Summary of Care ---
Author Name Unknown Organization [facility] Address [address] [facility] [place] [address] Phone [phone] Care Team Providers Care Ball Rolling Machine Operator Name Role Phone Stefany Benitez MD Primary Care Provid er Reason for Visit * Reason Comments eRx-Medication Refill Encounter Details Date Type Department Care Team (Late st Contact Info) Description 07/29/2023 Refill Cardiology, [facility] [address] [place] [address] Daniel Cuevas, [address] [place] [address] Dyslipidemia, goal LDL below 70 Allergies Active Allergy Reactions Criticality Noted Date [...] as of this encounter (statuses as of 07/30/2023) Medications Medication Sig Dispensed Refills Start Date End Date Status albuterol (PROVENTIL HFA) 108 (90 BASE) MCG/ACT inhaler Inhale 2 Puffs by mouth every 6 hours as needed. 0 Active albuterol sulfate (PROVENTIL) (2.5 MG/3ML) 0.083% nebulizer solution Inhale 1 Vial via nebulizer every 4 hours as needed for Wheezing. 120 Vial 11 07/05/2016 Active clonazePAM (KLONOPIN) 0.5 MG TabletIndications: Depression [...] as needed for Cough. 0 Active Umeclidinium [place] 62.5 MCG/ACT Inhalation Aerosol Powder Breath Activated [...] Active Losartan Potassium 50 MG Oral Tablet (Cozaar)Indication s:HTN, goal below 140/90 TAKE 1 TABLET BY MOUTH TWICE DAILY 180 Tablet 3 07/05/2023 Active Atorvastatin Calcium 20 MG Oral Tablet (Lipitor)Indicatio ns:Dyslipidemia, goal LDL below 70 TAKE 1 TABLET BY MOUTH ONCE DAILY 90 Tablet 3 07/30/2023 Active Atorvastatin Calcium 20 MG Oral Tablet (Lipitor)Indicatio ns:Dyslipidemia, goal LDL below 70 TAKE 1 TABLET BY MOUTH ONCE DAILY 30 Tablet 11 08/22/2022 3 Discontinued documented as of this encounter (statuses as of 07/30/2023) Active Problems Problem Noted Date Diagnosed Date [...] 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 [id number] mutation Heterozygous factor V Leiden mutation 09/30/2014 Fibroadenoma of breast 03/22/2012 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 Condyloma acuminatum Moderate COPD (chronic obstructive pulmonary dis ease) Overview: Dr Peoples Gastroesophageal reflux disease without esophagi tis Depression with anxiety documented as of this encounter (statuses as of 07/30/2023) Resolved Problems Problem Noted Date Diagnosed Date [...] as of this encounter (statuses as of 07/30/2023) Immunizations Name Administration Dates Next Due COVID-19 mRNA, LNP-s, No Pre serve, 2-Dose Series (Moderna) 01/20/2021,12/23/2020 Pneumococcal Conjugate Vacci ne, 20-valent ([id number]) 05/01/2023 Pneumococcal Polysaccharide PPV23 (Pneumovax) 10/09/2015 SEASONAL [...] e alcohol) 2 drinks every 6-12 month Sex and Gender Information Value Date Recorded [...] Telephone Encounter - Misael Hicks CRNP - 07/30/2023 3:53 PM EDT Signed Prescriptions: Disp Refills Atorvastatin Calcium 20 MG Oral Tablet (Li*90 Tab*3 Sig: TAKE 1 TABLET BY MOUTH ONCE DAILY Authorizing Provider: MISAEL HICKS * Telephone Encounter - Meghann Sparks COT - 07/30/2023 3:25 PM EDTPending Prescriptions: Disp Refills Atorvastatin Calcium 20 MG Oral Tablet (Li*90 Tab*3 Sig: TAKE 1 TABLET BY MOUTH ONCE DAILY * Telephone Encounter - Meghann Sparks COT - 07/30/2023 3:25 PM EDT Did you pend patient's preferred pharmacy and medication before forwarding?yes Pharmacy: [id number] Pending Prescriptions: Disp Refills Atorvastatin Calcium 20 MG Oral Tablet (L*90 Tab*3 Sig: TAKE 1 TABLET BY MOUTH ONCE DAILY Last Visit: 12/06/2022 (in office), 01/01/2023 (telemedicine) Next Visit: 11/08/2023 If no future appointments scheduled, and last appointment is greater than a year ago, please schedule patient for a follow-up appointment Last date the medication was ordered: 08-22-2022 Is this request for a controlled substance?No Urine Drug Screen:No results found for this or any previous visit. Patient Phone Numbers Labs: Lab Results Component Value Date/Time CREAT 1.1 (H) 06/19/2023 11:11 AM CREAT 0.9 09/28/2020 08:19 AM POTASSIUM 3.9 06/19/2023 11:11 AM POTASSIUM 4.3 09/28/2020 08:19 AM TSH 1.01 04/21/2020 11:41 AM LDLCALC 37 05/05/2023 08:08 AM LDLCALC 74 09/28/2020 08:19 AM LDLDIRECT NOT APPLICABLE 09/03/2019 08:30 AM ALT 42 (H) 06/19/2023 11:11 AM ALT 23 09/28/2020 08:19 AM HGBA1C 5.1 05/05/2023 08:08 AM HGBA1C 5.9 (H) 09/28/2020 08:19 AM documented in this encounter Plan of Treatment Upcoming Encounters Date Type Department Care Team (Late st Contact Info) Description 09/18/2023 10:00 AM EST Office Visit [place] [address] [place] [address] Stefany Benitez MD [address] [place] [address] 11/08/2023 4:00 PM EST Office Visit Cardiology, [facility] [address] [place] [address] Daniel Cuevas, [address] [place] [address] 04/07/2024 4:15 PM EDT Imaging Radiology [facility] [address] [place] [address] 08/04/2024 10:00 AM EST Office Visit Gynecology/Obstetrics Yulisa Perez [address] [place] [address] Nathalia Guerrero PA-C [address] [place] [address] Scheduled Procedures Name Priority Associated Diagnoses Date/Ti [...] < 10) 04/26/2022 04/25/2022 COVID-19 Vaccine ( - 2022- season) 2023 01/20/2021, 12/23/2020 Mammogram [...] as of this encounter Visit Diagnoses Diagnosis Dyslipidemia, goal LDL below 70 Other and unspecified hyperlipidemia documented in this encounter Advance Directives Latest [...] the patient have Health Care Power of Process Control Engineer? No Care Teams Ball Rolling Machine Operator Relationship Specialty Start Date End Date Stefany Benitez MD [address] [place] [address] PCP - General Family Medicine 04/25/22 documented as of this encounter
--- OUTSIDE RECORDS SUMMARY | 2023-10-21 07:03 | External Medical Summary | Summary of Care ---
Author Name Unknown Organization [facility] Address [address] [facility] [place] [address] Phone [phone] Care Team Providers Care Chute Tapper Name Role Phone Stefany Benitez MD Primary Care Provid er Reason for Visit * Reason Comments Portfolio Consultant Return Encounter Details Date Type Department Care Team Description 07/11/2023 Office Visit Gynecology/Obstetrics [facility] [address] [place] [address] Isabel Manrique CRNP [address] [place] [address] Vulvar lesion* Allergies Active Allergy Reactions Severity Noted Date Comments Amoxicillin-Pot Clavulanate Nausea/vomiting Low [...] as of this encounter (statuses as of 07/11/2023) Medications Medication Sig Dispensed Refills Start Date [...] before bedtime. 180 Tablet 11 07/21/2022 Active Atorvastatin Calcium 20 MG Oral Tablet (Lipitor)Indications: Dyslipidemia, goal LDL below 70 TAKE 1 TABLET BY MOUTH ONCE DAILY 30 Tablet 11 08/22/2022 Active PARoxetine HCl 40 MG Oral Tablet (pAXil) Take 1 Tablet by mouth in the morning. 0 Active Benzonatate 100 MG Oral Capsule (Tessalon Perles) Take 1 Capsule by mouth 3 times a day as needed for Cough. 0 Active Umeclidinium [place] 62.5 MCG/ACT Inhalation Aerosol Powder Breath [...] TWICE DAILY 180 Tablet 3 07/05/2023 Active documented as of this encounter (statuses as of 07/11/2023) Active Problems Problem Noted Date Dysplasia of cervix, low grade (LIZETTE 1) 0 06/26/2023 Overview: Repeat pap 2023 Postmenopausal status, age-related 05/01 Dyslipidemia, goal LDL below 70 05/01/20 History of lobectomy of lung 05/01/2022 Major depressive disorder, recurrent, mo derate 04/25/2022 Anxiety, generalized 04/25/2022 Bipolar disorder 04/25/2022 Hypertension goal BP (blood pressure) < 140/90 06/01/2021 Overview: Pt stated she recently started on HTN meds. 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 09/30/2014 Heterozygous factor V Leiden mutation Fibroadenoma of breast 03/22/2012 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 Condyloma acuminatum Moderate COPD (chronic obstructive pulmo nary disease) Overview: Dr Peoples Gastroesophageal reflux disease without esophagitis Depression with anxiety documented as of this encounter (statuses as of 07/11/2023) Resolved Problems Problem Noted Date Resolved Date Palpitations 11/25/2015 08/16/2017 Nodule of left lung 08/17/2015 09/10/2015 DVT prophylaxis 10/02/2014 10/23/2014 Screening cholesterol level 03/06/201308/01 ADVANCE DIRECTIVE INFORMATION 11/27/2006 Overview: No, Advance Directive brochure offered , patient declined she has information. BENIGN JILLIAN SKIN EAR 04/26/2004 11/25/2015 Primary hypercoagulable state 12/16/2003 Abnormal Papanicolaou smear of vagina and vagina l HPV 04/29/2003 11/25/2015 Overview: ICD-10 update of inactive term Palpitations 03/07/1996 11/25/2015 Depression 08/16/2017 TEMPOROMANDIBULAR JOINT DISORDERS, UNSPECIFIED 11/25/2015 Tobacco use disorder 12/16/2015 Mitral valve disorder 11/25/2015 INFORMATION 04/26/2004 documented as of this encounter (statuses as of 07/11/2023) Immunizations Name Administration Dates Next Due COVID-19 mRNA, LNP-s, No Pre serve, 2-Dose Series (Moderna) 01/20/2021,12/23/2020 Pneumococcal Conjugate Vacci ne, 20-valent ([id number]) 05/01/2023 Pneumococcal Polysaccharide PPV23 (Pneumovax) 10/09/2015 SEASONAL [...] e alcohol) 2 drinks every 6-12 month Food Insecurity Answer Date Recorded Within the past 12 months, y ou worried that your food would run out before you got money to buy more. Never true 06/17/2019 Within the past 12 months, t he food you bought just didn't last and you didn't have money to get more. Never true 06/17/2019 Sex Assigned at Date Recorded Female 11/13/2019 2:[address] Job Start Date Occupation Industry Not on file Not on file Not on file documented as of this encounter Last Filed Vital Signs Vital Sign Reading Time Taken Comments Blood Pressure 136/72 07/11/2023 11:01 AM EDT Pulse - - Temperature - - Respiratory Rate - - Oxygen Saturation - - Inhaled Oxygen Concentration - - Weight 48.1 kg (106 lb) 07/11/2023 11:01 AM EDT Height 167.6 cm (5' 6") 07/11/2023 11:01 AM EDT Body Mass Index 17.11 07/11/2023 11:01 AM EDT documented in this [...] No 09/11/2015 documented as of this encounter Patient Instructions * Patient Instructions* ÓSCAR Delaney - 07/11/2023 11:02 AM EDT Keep the biopsy site clean and dry until it heals. Do not clean or wipe vigorously. You can apply Vaseline or A&D ointment to the biopsy site. Some discomfort for a few days is expected. You can use ice or a warm bath, and take [id number] pain medication as needed. Call our office if you develop an unexplained fever/chills, have worsening pain, or if the site appears infected (it becomes red, swollen, warm to the touch, or has drainage from it). documented in this encounter Progress Notes * ÓSCAR Delaney - 07/11/2023 11:02 AM EDT CC: Here for vulvar biopsy HPI: The patient is a 58 year old year old female with a history of vulvar lesion who presents today for a vulvar biopsy. The procedure was described to her, including the information obtained from this test as well as the risks of bleeding, pain, and infection, and she gave verbal and written consent. Filed Vitals: 07/11/23 1101 BP: 136/72 Weight: 48.1 kg (106 lb) Height: 1.676 m (5' 6") A ''time out'' was initiated by ÓSCAR Sears prior to procedure. The procedure was verified using the consent. The patient was identified by name and date of . The correct procedure, and correct site identified. Correct positioning (as applicable). There is availability of necessaryequipment. Pt states she is not allergic to latex or iodine. The vulva was prepped with betadine x3. Local anesthesia was obtained with 0.3ml of 2% buffered lidocaine. A 3mm biopsy was obtained from R labia minora. Hemostasis was obtained with pressure and silver nitrate. The patient tolerated the procedure well. Assessment/Plan: 1. Vulvar lesion - SURGICAL PATHOLOGY Follow up pending biopsy results. Return with worsening pain, s/s infection, or active bleeding. 1 yr return for well woman exam/pap ÓSCAR Sears 07/11/23 documented in this encounter Nursing Notes * Susy Flores LPN - 07/11/2023 11:03 AM EDT Chief Complaint Patient presents with Portfolio Consultant Return Pt here today for vulvar biopsy documented in this encounter Plan of Treatment Upcoming Encounters Date Type Specialty Care Team Description 09/18/2023 Office Visit Family Medicine Stefany Benitez MD [address] [place] [address] 11/08/2023 Office Visit Cardiology Daniel Cuevas, [address] [place] [address] 04/07/2024 Imaging Radiology 08/04/2024 Office Visit Gynecology Obstetrics Nathalia Guerrero PA-C [address] [place] [address] Pending Results Name Type Priority Associated Diagnoses Date /Time SURGICAL PATHOLOGY Pathology Routine Vulvar lesion 07/11/2023 11:21 AM EDT Scheduled Procedures Name Priority Associated Diagnoses Date/Ti [...] as of this encounter Visit Diagnoses Diagnosis Vulvar lesion- Primary Other specified noninflammatory disorder of vulva and perineum documented in this encounter Advance Directives Latest [...] the patient have Health Care Power of Assembly Inspector Helper? No Care Teams Chute Tapper Relationship Specialty Start Date End Date Stefany Benitez MD [address] [place] [address] PCP - General Family Medicine 04/25/22 documented as of this encounter
--- OUTSIDE RECORDS SUMMARY | 2023-10-21 07:03 | External Medical Summary | Summary of Care ---
Author Name Unknown Organization [facility] Address [address] [facility] [place] [address] Phone [phone] Care Team Providers Care Utility Worker Film Processing Name Role Phone Stefany Benitez MD Primary Care Provid er Reason for Visit * Reason Comments eRx-Medication Refill Encounter Details Date Type Department Care Team Description 07/04/2023 Refill Cardiology, [facility] [address] [place] [address] Daniel Cuevas, [address] [place] [address] HTN, goal below 140/90* Allergies Active Allergy Reactions Severity Noted Date [...] as of this encounter (statuses as of 07/05/2023) Medications Medication Sig Dispensed Refills Start Date [...] as needed for Cough. 0 Active Umeclidinium [place] 62.5 MCG/ACT Inhalation Aerosol Powder Breath Activated [...] TWICE DAILY 180 Tablet 3 07/05/2023 Active Losartan Potassium 50 MG Oral Tablet (Cozaar) TAKE 1 TABLET BY MOUTH TWICE DAILY 60 Tablet 11 07/03/2022 3 Discontinued documented as of this encounter (statuses as of 07/05/2023) Active Problems Problem Noted Date Dysplasia of [...] Miller MD on 11/02/2015 Heterozygous for prothrombin [id number] mut ation 09/30/2014 Heterozygous factor V Leiden mutation Fibroadenoma of breast 03/22/2012 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 Condyloma acuminatum Moderate COPD (chronic obstructive pulmo nary disease) Overview: Dr Peoples Gastroesophageal reflux disease without esophagitis Depression with anxiety documented as of this encounter (statuses as of 07/05/2023) Resolved Problems Problem Noted Date Resolved Date [...] as of this encounter (statuses as of 07/05/2023) Immunizations Name Administration Dates Next Due COVID-19 mRNA, LNP-s, No Pre serve, 2-Dose Series (Moderna) 01/20/2021,12/23/2020 Pneumococcal Conjugate Vacci ne, 20-valent ([id number]) 05/01/2023 Pneumococcal Polysaccharide PPV23 (Pneumovax) 10/09/2015 SEASONAL [...] encounter Miscellaneous Notes * Telephone Encounter - ÓSACR Hood - 07/05/2023 9:45 AM EDTSigned Prescriptions: Disp Refills Losartan Potassium 50 MG Oral Tablet (Coza*180 Ta*3 Sig: TAKE 1 TABLET BY MOUTH TWICE DAILY Authorizing Provider: ANTONETTE REES * Telephone Encounter - ALINA Harmon - 07/05/2023 8:29 AM EDTPending Prescriptions: Disp Refills Losartan Potassium 50 MG Oral Tablet (Coza*180 Ta*3 Sig: TAKE 1 TABLET BY MOUTH TWICE DAILY * Telephone Encounter - ALINA Harmon - 07/05/2023 8:29 AM EDT Did you pend patient's preferred pharmacy and medication before forwarding?yes [id number] [address] [facility] Pending Prescriptions: Disp Refills Losartan Potassium 50 MG Oral Tablet (Coz*180 Ta*3 Sig: TAKE 1 TABLET BY MOUTH TWICE DAILY Last Visit: 12/06/2022 (in office), 01/01/2023 (telemedicine) Next Visit: 11/08/2023 If no future appointments scheduled, and last appointment is greater than a year ago, please schedule patient for a follow-up appointment Last date the medication was ordered: 07-03-2022 Is this request for a controlled substance?No [...] Encounters Date Type Specialty Care Team Description 07/11/2023 Office Visit Gynecology Obstetrics DarrelerIsabel CRNP [address] [place] [address] 09/18/2023 Office Visit Family Medicine Stefany Benitez MD [address] [place] [address] 11/08/2023 Office Visit Cardiology Daniel Cuevas, [address] [place] [address] 04/07/2024 Imaging Radiology Scheduled Procedures Name Priority Associated Diagnoses Date/Ti [...] as of this encounter Visit Diagnoses Diagnosis HTN, goal below 140/90- Primary Unspecified essential hypertension documented in this encounter [...] the patient have Health Care Power of Pricer Bagger? No Care Teams Utility Worker Film Processing Relationship Specialty Start Date End Date Stefany Benitez MD [address] [place] [address] PCP - General Family Medicine 04/25/22 documented as of this encounter
--- OUTSIDE RECORDS SUMMARY | 2023-10-21 07:03 | External Medical Summary | Summary of Care ---
Author Name Unknown Organization [facility] Address [address] [place] [address] Phone [phone] Care Team Providers Care Grocery Shopper Name Role Phone Stefany Benitez MD Primary Care Provid er Reason for Visit * Reason Onset Date Comments Films 07/05/2023 Encounter Details Date Type Department Care Team Description 07/05/2023 Telephone Radiology Film [facility] [address] [place], [place] [phone] Boris Miller MD [address] [place], [place] [id number] Films Allergies Active Allergy Reactions Severity Noted Date [...] as needed for Cough. 0 Active Umeclidinium [place] 62.5 MCG/ACT Inhalation Aerosol Powder Breath Activated [...] Miller MD on 11/02/2015 Heterozygous for prothrombin [id number] mut ation 09/30/2014 Heterozygous factor V Leiden [...] , patient declined she has information. BENIGN JILLINA SKIN EAR 04/26/2004 11/25/2015 Primary hypercoagulable state [...] (Moderna) 01/20/2021,12/23/2020 Pneumococcal Conjugate Vacci ne, 20-valent ([id number]) 05/01/2023 Pneumococcal Polysaccharide PPV23 (Pneumovax) 10/09/2015 SEASONAL [...] encounter Miscellaneous Notes * Telephone Encounter - YOLIS Cha - 07/05/2023 4:17 PM EDT [facility] Pulmonary department requesting 07-02-23 images be pushed through PACS. [place] Authorization to Release on file. Images pushed to [facility] PACS external connection. Associated report(s) not needed. documented in this encounter Plan of Treatment Upcoming Encounters Date Type Specialty Care Team Description 07/11/2023 Office Visit Gynecology Obstetrics BackerIsabel CRNP [address] [place] [address] 09/18/2023 Office Visit Family Medicine [facility] [address] [facility] [address] 11/08/2023 Office Visit Cardiology Daniel Cuevas DO [address] [place] [address] 04/07/2024 Imaging Radiology Scheduled Procedures Name Priority [...] 04/27/2023, 03/2023, 04/04/2022, Additional history exists GFR 06/19/2024 06/19/2023, 0801/2023, 07/15/2022, Additional history exists O2 ASSESSMENT COMPLETED [...] the patient have Health Care Power of Joy Operator Helper? No Care Teams Grocery Shopper Relationship Specialty Start Date End Date Stefany Benitez MD [address] [place] [address] PCP - General Family Medicine 04/25/22 documented as of this encounter
--- OUTSIDE RECORDS SUMMARY | 2023-10-21 07:03 | External Medical Summary ---
Author Name Unknown Address Unknown Organization K01[place] [place] [facility] [address] [facility] [address] Laboratory Report Ordering Provider Test Date Status CATRINA GOMES 06/19/2023 11:11:48 Final Observation Date Value Abnormality Reference (Units ) Status WBC, Total 06/19/2023 11:11:48 14.45 Above high normal 4.00-10.80 (K/uL) Final RBC 06/19/2023 11:11:48 4.19 3.85-5.15 (M/uL) Final Hemoglobin 06/19/2023 11:11:48 12.7 12.0-15.3 (g/dL) Final HCT 06/19/2023 11:11:48 37.5 36.0-45.2 (%) Final MCV 06/19/2023 11:11:48 89.5 81.5-97.5 (fL) Final MCH 06/19/2023 11:11:48 30.3 27.0-34.0 (pg) Final MCHC 06/19/2023 11:11:48 33.9 32.0-36.0 (g/dL) Final RDW 06/19/2023 11:11:48 15.5 11.5-15.5 (%) Final Platelets 06/19/2023 11:11:48 237 140-400 (K/uL) Final MPV 06/19/2023 11:11:48 11.1 6.6-11.1 (fL) Final Nucleated erythrocytes/100 leukocytes [Ratio] in Blood by Automated count 06/19/2023 11:11:48 0 <=0 (/100 WBCs) Final Performing Location [facility] [place] [address] [facility] [address]
--- OUTSIDE RECORDS SUMMARY | 2023-10-21 07:03 | External Medical Summary | Summary of Care ---
Author Name Unknown Organization [facility] Address [address] [place] [address] Phone [phone] Care Team Providers Care Road Production General Manager Name Role Phone Stefany Benitez MD Primary Care Provid er Encounter Details Date Type Department Care Team Description 06/25/2023 Education Trainer[address] [address] Melissa Pressley, RN [address] [place] [address] Pneumonia of right lower lobe due to infectious organism* Allergies Active Allergy Reactions Severity Noted Date [...] as of this encounter (statuses as of 06/25/2023) Medications Medication Sig Dispensed Refills Start Date [...] every 8 hours as needed. 0 Active Losartan Potassium 50 MG Oral Tablet (Cozaar) TAKE 1 TABLET BY MOUTH TWICE DAILY 60 Tablet 11 07/03/2022 Active Carvedilol 25 MG Oral Tablet (Coreg) [...] by mouth in the morning. 0 Active Terazosin HCl 2 MG Oral Capsule Take 1 Capsule by mouth at bedtime. 0 Active Benzonatate 100 MG Oral Capsule (Tessalon Perles) Take 1 Capsule by mouth 3 times a day as needed for Cough. 0 Active hydrALAZINE HCl 50 MG Oral Tablet (Apresoline) Take 1 Tablet by mouth in the morning and 1 Tablet at noon and 1 Tablet before bedtime. 0 Active Umeclidinium [place] 62.5 MCG/ACT Inhalation Aerosol Powder Breath Activated (INCRUSE ellipta) Inhale 1 Puff by mouth in the morning. 0 Active Furosemide 20 MG Oral Tablet Take 1 Tablet by mouth in the morning and 1 Tablet before bedtime. 0 Active amLODIPine Besylate 10 MG Oral Tablet (Norvasc)Indications: HTN, goal below 140/90 TAKE 1 TABLET BY MOUTH ONCE DAILY 90 Tablet 3 06/22/2023 Active documented as of this encounter (statuses as of 06/25/2023) Active Problems Problem Noted Date Postmenopausal status, age-related 05/01 Dyslipidemia, goal LDL [...] Miller MD on 11/02/2015 Heterozygous for prothrombin [id number] mut ation 09/30/2014 Heterozygous factor V Leiden mutation Fibroadenoma of breast 03/22/2012 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 Condyloma acuminatum Moderate COPD (chronic obstructive pulmo nary disease) Overview: Dr Peoples Gastroesophageal reflux disease without esophagitis Depression with anxiety documented as of this encounter (statuses as of 06/25/2023) Resolved Problems Problem Noted Date Resolved Date [...] as of this encounter (statuses as of 06/25/2023) Immunizations Name Administration Dates Next Due COVID-19 mRNA, LNP-s, No Pre serve, 2-Dose Series (Moderna) 01/20/2021,12/23/2020 Pneumococcal Conjugate Vacci ne, 20-valent ([id number]) 05/01/2023 Pneumococcal Polysaccharide PPV23 (Pneumovax) 10/09/2015 Seasonal Influenza Virus Vac cine, Unspecified Formulation 07/19/2018 Seasonal Influenza, PF, 6 mo ns & Above, IM , (Flulaval) 07/21/2022,06/17/2019 Seasonal Influenza, Quadriva lent Hd (Fluzone [...] as of this encounter Progress Notes * Melissa Pressley RN - 06/25/2023 12:53 PM EDT S: Spoke with patient O: Patient denies SOB, cough or angina O2 saturations on room air have been at 97% Patient has a good appetite, denies bowel/bladder complaints No complaints of pain Patient independent with ambulation & ADL's Confirmed upcoming follow up appointments A: Phone Follow Up P: Pt instructed to: -Call with increased SOB, wheezing, chest tightness, increased cough, increased sputum with change in color or consistency and fever. -Wash hands often -Drink plenty of fluids --Avoid stress -Rest when tired or SOB -Avoid triggers Advised to call office for any change in health status or questions concerning care Encouraged patient to call case consultant with any questions/concerns at [phone]. Office Hours: Sun- 8-8 pm, Sunday 8-5 pm, [facility] weekend clinic hours: Saturdays 8-5, Sundays 8-5 Melissa Pressley RN Family [place] [id number] [facility] [phone] documented in this encounter Plan of Treatment Upcoming Encounters Date Type Specialty Care Team Description 07/02/2023 Imaging Radiology 07/11/2023 Office Visit Gynecology Obstetrics Isabel Manrique CRNP [address] [place] [address] 09/18/2023 Office Visit Family Medicine Stefany Benitez MD [address] [place] [address] 11/08/2023 Office Visit Cardiology Daniel Cuevas DO [address] [place] [address] 04/07/2024 Imaging Radiology Scheduled Procedures Name Priority [...] 10/13/2009, 07/17/2002, 02/28/1979 COVID-19 Vaccine (3 - Moderna series) 03/17/2021 01/20/2021, 12/23/2020 Depression, Most Recent Score >= 10 (will fire each visit until score < 10) 04/26/2022 04/25/2022 Mammogram 04/27/2024 04/27/2023, 070 03/2023, 04/04/2022, Additional [...] as of this encounter Visit Diagnoses Diagnosis Pneumonia of right lower lobe due to infectious organism- Primary documented in this encounter Advance Directives Latest [...] the patient have Health Care Power of Barge Captain? No Care Teams Road Production General Manager Relationship Specialty Start Date End Date Stefany Benitez MD [address] [place] [address] PCP - General Family Medicine 04/25/22 documented as of this encounter
--- OUTSIDE RECORDS SUMMARY | 2023-10-21 07:03 | External Medical Summary | Summary of Care ---
Author Name Unknown Organization [facility] Address [address] [facility] [place] [address] Phone [phone] Care Team Providers Care Credit Checker Name Role Phone Stefany Benitez MD Primary Care Provid er Reason for Visit * Reason Onset Date Comments Test Results 06/26/2023 Encounter Details Date Type Department Care Team Description 06/26/2023 Telephone Gynecology/Obstetrics [facility] [address] [place] [address] Isabel Manrique CRNP [address] [place] [address] Test Results Allergies Active Allergy Reactions Severity Noted Date [...] as of this encounter (statuses as of 06/26/2023) Medications Medication Sig Dispensed Refills Start Date [...] 1 Tablet before bedtime. 0 Active Umeclidinium [place] 62.5 MCG/ACT Inhalation Aerosol Powder Breath Activated [...] as of this encounter (statuses as of 06/26/2023) Active Problems Problem Noted Date Dysplasia of [...] Miller MD on 11/02/2015 Heterozygous for prothrombin [id number] mut ation 09/30/2014 Heterozygous factor V Leiden mutation Fibroadenoma of breast 03/22/2012 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 Condyloma acuminatum Moderate COPD (chronic obstructive pulmo nary disease) Overview: Dr Peoples Gastroesophageal reflux disease without esophagitis Depression with anxiety documented as of this encounter (statuses as of 06/26/2023) Resolved Problems Problem Noted Date Resolved Date [...] as of this encounter (statuses as of 06/26/2023) Immunizations Name Administration Dates Next Due COVID-19 mRNA, LNP-s, No Pre serve, 2-Dose Series (Moderna) 01/20/2021,12/23/2020 Pneumococcal Conjugate Vacci ne, 20-valent ([id number]) 05/01/2023 Pneumococcal Polysaccharide PPV23 (Pneumovax) 10/09/2015 Seasonal [...] encounter Miscellaneous Notes * Telephone Encounter - Gladis Andrade LPN - 06/26/2023 1:48 PM EDT Pt notified. * Telephone Encounter - ÓSCAR Delaney - 06/26/2023 1:41 PM EDT Cervical biopsies show mild/low grade changes in cells. These often self resolve and do not commonly progress to pre-cancerous. Repeat pap in 1 yr. Keep f/u appt for vulvar biopsy. ÓSCAR Sears documented in this encounter Plan of Treatment Upcoming Encounters Date Type Specialty Care Team Description 07/02/2023 Imaging Radiology 07/11/2023 Office Visit Gynecology Obstetrics Backer, ÓSCAR Leung [address] [place] [address] 09/18/2023 Office Visit Family Medicine [facility] [address] [facility] [address] 11/08/2023 Office Visit Cardiology Daniel Cuevas DO [address] [place] [address] 04/07/2024 Imaging Radiology Scheduled Procedures Name Priority [...] < 10) 04/26/2022 04/25/2022 Mammogram 04/27/2024 04/27/2023, 07/0 03/2023, 04/04/2022, Additional [...] the patient have Health Care Power of Veterinary Bacteriologist? No Care Teams Credit Checker Relationship Specialty Start Date End Date Stefany Benitez MD [address] [place], [place] [phone] PCP - General Family Medicine 04/25/22 documented as of this encounter
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
--- OUTSIDE RECORDS SUMMARY | 2023-10-21 07:03 | External Medical Summary | Summary of Care ---
Author Name Unknown Organization [facility] Address [address] [facility] [place] [address] Phone [phone] Care Team Providers Care Security Patrol Officer Name Role Phone Stefany Benitez MD Primary Care Provid er Reason for Visit * Reason Comments Colposcopy Encounter Details Date Type Department Care Team Description 06/25/2023 Office Visit Gynecology/Obstetrics [facility] [address] [place] [address] Isabel Manrique CRNP [address] [place] [address] LGSIL on Pap smear of cervix*; Vulvar lesion Allergies Active Allergy Reactions Severity Noted Date [...] 1 Tablet before bedtime. 0 Active Umeclidinium [place] 62.5 MCG/ACT Inhalation Aerosol Powder Breath Activated [...] Miller MD on 11/02/2015 Heterozygous for prothrombin [id number] mut ation 09/30/2014 Heterozygous factor V Leiden [...] (Moderna) 01/20/2021,12/23/2020 Pneumococcal Conjugate Vacci ne, 20-valent ([id number]) 05/01/2023 Pneumococcal Polysaccharide PPV23 (Pneumovax) 10/09/2015 Seasonal [...] Sign Reading Time Taken Comments Blood Pressure 138/74 06/25/2023 8:47 AM EDT Pulse - - Temperature - - Respiratory Rate - - Oxygen Saturation - - Inhaled Oxygen Concentration - - Weight 48.1 kg (106 lb) 06/25/2023 8:47 AM EDT Height 167.6 cm (5' 6") 06/25/2023 8:47 AM EDT Body Mass Index 17.11 06/25/2023 8:47 AM EDT documented in this encounter Functional [...] Instructions * Patient Instructions* ÓSCAR Delaney - 06/25/2023 8:51 AM EDT Post colposcopy instructions: You can expect a coffee ground discharge or light bleeding for about 1-2 weeks post procedure. Do not take Aspirin or aspirin-containing products ( it may increase the amount of vaginal bleedingand affect the ability to of the blood to clot). Take Tylenol or Advil for any discomfort Avoid heavy lifting, strenuous exercise, jogging, anything in the vagina ( intercourse, douching, tampons) for 7 days It is very important to keep all follow up appointments Call your health care provider if the following occurs: - Bright red vaginal bleeding- saturating a pad/hr - Foul smelling vaginal discharge - Pain - Fever of 100 degrees or greater documented in this encounter Progress Notes * ÓSCAR Delaney - 06/25/2023 8:51 AM EDT Colposcopy Procedure Melissa Carpenter presents for colposcopy for evaluation of recent pap showing: LSIL +HPV. Previous pap smears: history LIZETTE 20 yrs ago w/cryocautery, normal since BP 138/74 | Ht 1.676 m (5' 6") | Wt 48.1 kg (106 lb) | LMP 04/06/2020 | BMI 17.11 kg/m | BSA 1.5 m Reviewed in detail procedure, risks, benefits and indications. Pt is post-menopausal. Denies any vaginal bleeding. A ''time out'' was initiated by ÓSCAR Sears.The patient was identified by name and dateof . The correct procedure, and correct site identified. Correct positioning (as applicable). There is availability of necessary equipment. Pt states she is not allergic to latex. PE: bimanual exam: Not performed. external genitalia: R labia minora with irregular shaped, hyperpigmented macular lesion, approx 7.5mm, 10 o'clock position vagina: No lesions. cervix: Lesion #1 Location: 6 o'clock: Appearance: [place]; Completely visualized: yes; Biopsied: yes Lesion #2 Location: 9 o'clock: Appearance: [place]; Completely visualized: yes; Biopsied: yes Lesion #3 Location: 2 o'clock: Appearance: [place]; Completely visualized: yes; Biopsied: yes Transformation Zone: Seen in entirety Satisfactory Colposcopy: yes Additional Biopsies: N/A ECC: yes Impression 1. LGSIL on Pap smear of cervix - SURGICAL PATHOLOGY 2. Vulvar lesion F/U results on any testing done. Recommend returning for biopsy of vulvar lesion. Reviewed instructions including no sex, tampons, or douching for at least 7 days ÓSCAR Sears documented in this encounter Nursing Notes * Susy Flores LPN - 06/25/2023 8:53 AM EDT Chief Complaint Patient presents with Colposcopy Patient's last menstrual period was 04/06/2020. Patient is postmenopausal. documented in this encounter Plan of Treatment Upcoming Encounters Date Type Specialty Care Team Description 07/02/2023 Imaging Radiology 07/11/2023 Office Visit Gynecology Obstetrics Backer, ÓSCAR Leung [address] [place] [address] 09/18/2023 Office Visit Family Medicine Stefany Benitez MD [address] [place] [address] 11/08/2023 Office Visit Cardiology Daniel Cuevas DO [address] [place] [address] 04/07/2024 Imaging Radiology Pending Results Name Type Priority Associated Diagnoses Date /Time SURGICAL PATHOLOGY Pathology Routine LGSIL on Pap smear of cervix 06/25/2023 9:25 AM EDT Scheduled Procedures Name Priority Associated [...] as of this encounter Visit Diagnoses Diagnosis LGSIL on Pap smear of cervix- Primary Vulvar lesion Other specified noninflammatory disorder of vulva and [...] the patient have Health Care Power of Hospital Cleaner? No Care Teams Security Patrol Officer Relationship Specialty Start Date End Date Stefany Benitez MD [address] [place] [address] PCP - General Family Medicine 04/25/22 documented as of this encounter
--- OUTSIDE RECORDS SUMMARY | 2023-10-21 07:03 | External Medical Summary | Summary of Care ---
Author Name Unknown Organization [facility] Address [address] [facility] [place] [address] Phone [phone] Care Team Providers Care Salesperson Trailers And Motor Homes Name Role Phone Stefany Benitez MD Primary Care Provid er Reason for Visit * Reason Comments eRx-Medication Refill Encounter Details Date Type Department Care Team Description 06/21/2023 Refill Cardiology, [facility] [address] [place] [address] Daniel Cuevas, [address] [place] [address] HTN, goal below 140/90* Allergies Active Allergy [...] as of this encounter (statuses as of 06/22/2023) Medications Medication Sig Dispensed Refills Start Date [...] 1 Tablet before bedtime. 0 Active Umeclidinium [place] 62.5 MCG/ACT Inhalation Aerosol Powder Breath Activated (INCRUSE ellipta) Inhale 1 Puff by mouth in the morning. 0 Active Furosemide 20 MG Oral Tablet Take 1 Tablet by mouth in the morning and 1 Tablet before bedtime. 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 Condyloma acuminatum Moderate COPD (chronic obstructive pulmo nary disease) Overview: Dr Peoples Gastroesophageal reflux disease without esophagitis Depression with anxiety documented as of this encounter (statuses as of 06/22/2023) Resolved Problems Problem Noted Date Resolved Date [...] as of this encounter (statuses as of 06/22/2023) Immunizations Name Administration Dates Next Due COVID-19 mRNA, LNP-s, No Pre serve, 2-Dose Series (Moderna) 01/20/2021,12/23/2020 Pneumococcal Conjugate Vacci ne, 20-valent ([id number]) 05/01/2023 Pneumococcal Polysaccharide PPV23 (Pneumovax) 10/09/2015 Seasonal [...] encounter Miscellaneous Notes * Telephone Encounter - ÓSCAR Miranda - 06/22/2023 9:50 AM EDTSigned Prescriptions: Disp Refills amLODIPine Besylate 10 MG Oral Tablet (Nor*90 Tab*3 Sig: TAKE 1 TABLET BY MOUTH ONCE DAILY Authorizing Provider: MISAEL HICKS * Telephone Encounter - ALINA Harmon - 06/22/2023 8:35 AM EDTPending Prescriptions: Disp Refills amLODIPine Besylate 10 MG Oral Tablet (Nor*90 Tab*3 Sig: TAKE 1 TABLET BY MOUTH ONCE DAILY * Telephone Encounter - ALINA Harmon - 06/22/2023 8:35 AM EDT Did you pend patient's preferred pharmacy and medication before forwarding?yes Pharmacy: [id number] [id number] [facility] Pending Prescriptions: Disp Refills amLODIPine Besylate 10 MG Oral Tablet (No*90 Tab*3 Sig: TAKE 1 TABLET BY MOUTH [...] Encounters Date Type Specialty Care Team Description 06/25/2023 Office Visit Gynecology Obstetrics Backer, ÓSCAR Leung [address] [place] [address] 07/02/2023 Imaging Radiology 09/18/2023 Office Visit Family Medicine Stefany Benitez MD [address] [place] [address] 11/08/2023 Office Visit Cardiology Daniel Cuevas, [address] [place] [address] 04/07/2024 Imaging Radiology Scheduled Procedures Name Priority [...] the patient have Health Care Power of Smoking Tobacco Packer Hand? No Care Teams Salesperson Trailers And Motor [employer] Relationship Specialty Start Date End Date Stefany Benitez MD [address] [place] [address] PCP - General Family Medicine 04/25/22 documented as of this encounter
--- OUTSIDE RECORDS SUMMARY | 2023-10-21 07:03 | External Medical Summary | Summary of Care ---
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 [address] [place] [address] Isabel Manrique CRNP [address] [place] [address] Vulvar lesion* Allergies Active Allergy Reactions Severity [...] as needed for Cough. 0 Active Umeclidinium [place] 62.5 MCG/ACT Inhalation Aerosol Powder Breath Activated [...] Miller MD on 11/02/2015 Heterozygous for prothrombin [id number] mut ation 09/30/2014 Heterozygous factor V Leiden [...] (Moderna) 01/20/2021,12/23/2020 Pneumococcal Conjugate Vacci ne, 20-valent ([id number]) 05/01/2023 Pneumococcal Polysaccharide PPV23 (Pneumovax) 10/09/2015 SEASONAL [...] ice or a warm bath, and take [id number] pain medication as needed. 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 with Crop Or Grain Farmer Return Pt here today for vulvar biopsy documented in this encounter Plan of Treatment Upcoming Encounters Date Type Specialty Care Team Description 09/18/2023 Office Visit Family Medicine Stefany Benitez MD [address] [place] [address] 11/08/2023 Office Visit Cardiology Daniel Cuevas, [address] [place] [address] 04/07/2024 Imaging Radiology 08/04/2024 Office Visit Gynecology Obstetrics Nathalia Guerrero PA-C [address] [place] [address] Pending Results Name Type Priority Associated Diagnoses [...] the patient have Health Care Power of Glue Machine Operator? No Care Teams Child Protection Specialist Relationship Specialty Start Date End Date Stefany Benitez MD [address] [place] [address] PCP - General Family Medicine 04/25/22 documented as of this encounter
--- OUTSIDE RECORDS SUMMARY | 2023-10-21 07:03 | External Medical Summary | Summary of Care ---
Author Name Unknown Organization [facility] Address [address] [place] [address] Phone [phone] Care Team Providers Care Floor Polisher Name Role Phone Steafny Benitez MD Primary Care Provid er Encounter Details Date Type Department Care Team Description 06/20/2023 Home Visit Care Coordination [address] [place], [place] [id number] Lynda Scott, [facility] [employer] [address] [place], [place] [id number] Allergies Active Allergy Reactions Severity Noted Date [...] as of this encounter (statuses as of 06/20/2023) Medications Medication Sig Dispensed Refills Start Date [...] ONE TABLET BY MOUTH DAILY 30 Tablet 07/03/2022 Active Carvedilol 25 MG Oral Tablet [...] 1 Tablet before bedtime. 0 Active Umeclidinium [place] 62.5 MCG/ACT Inhalation Aerosol Powder Breath Activated (INCRUSE ellipta) Inhale 1 Puff by mouth in the morning. 0 Active Furosemide 20 MG Oral Tablet Take 1 Tablet by mouth in the morning and 1 Tablet before bedtime. 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 Condyloma acuminatum Moderate COPD (chronic obstructive pulmo nary disease) Overview: Dr Peoples Gastroesophageal reflux disease without esophagitis Depression with anxiety documented as of this encounter (statuses as of 06/20/2023) Resolved Problems Problem Noted Date Resolved Date [...] as of this encounter (statuses as of 06/20/2023) Immunizations Name Administration Dates Next Due COVID-19 mRNA, LNP-s, No Pre serve, 2-Dose Series (Moderna) 01/20/2021,12/23/2020 Pneumococcal Conjugate Vacci ne, 20-valent ([id number]) 05/01/2023 Pneumococcal Polysaccharide PPV23 (Pneumovax) 10/09/2015 Seasonal [...] Sign Reading Time Taken Comments Blood Pressure 130/80 06/20/2023 12:52 PM EDT Pulse 61 06/20/2023 12:52 PM EDT Temperature 36.7 C (98 F) 06/20/2023 12:52 PM EDT Respiratory Rate 18 06/20/2023 12:52 PM EDT Oxygen Saturation 98% 06/20/2023 12:52 PM EDT Inhaled Oxygen Concentration - - Weight - - Height - - Body Mass Index - - documented in this encounter Functional Status Functional [...] as of this encounter Progress Notes * Lynda Scott - 06/20/2023 12:54 PM EDT [facility] [employer] Visit Date: 06/20/2023 Time: 12:54 PM Name: Melissa Carpenter : 1965 Referral Source: recruiter manager Source of Information: Patient Spoken language: Citizen [place] Patient can read in [place]: Yes. Appeals Examiner needed: No. COVID-19 screening completed: Yes Vitals: Vital signs completed: Yes, vital signs within normal range. BP 130/80 (BP Site: Left Arm, BP Position: Sitting, BP Cuff Size: Regular) | Pulse 61 | Temp 36.7 C (98 F) (Infrared ) | Resp 18 | LMP 04/06/2020 | SpO2 98% Condition Changes: Changes in health or social status since last visit: Patient reports no changes at this time The patient has new concerns since last visit: No Progress towards goals since last visit: See above Medications: Medication review completed? No, Does the patient have barriers to medication adherence? No. Patient reports difficulty paying for medications or might in the future: No. Telehealth: This is a telehealth visit: No. Symptoms Surveys and Evaluations: [facility] completed this visit: No. Last flowsheet values for [facility]: Social Determinants of Health: Safety: Patient reports feeling unsafe in their home: No. Housing: Patient reports they are at risk of becoming homeless: No. Home/Living situation: Patient lives alone: No, lives with fiance Bathroom is located one floor Bedroom is located same floor Patient has to go up and down steps: Yes. Patient has concerns related to steps: No. Patient receives help from family/friends/neighbors/community agencies etc.: Yes. Type of help the patient receives: fiance and neighbors Patient perceives the help they receive as adequate: Yes. DME: DME used: None Patient has concerns related to DME: No. Financial: Patient reports experiencing a financial hardship: No. Employment: Patient is unemployed or without regular income: No. Utilities: Patient reports difficulty paying heating, water, or electric bill: No. Transportation: Patient drives: No. Does anyone drive patient to appointments and shopping? Yes. Patient receives community or public transportation assistance: No. Patient reports trouble getting a ride to medical visits or work: Never True. Clothing: Patient reports being unable to get clothing when it was really needed: No. Food insecurity: Patient has concerns surrounding meals/food: No. Within the past 12 months patient worried food would run out before having money to buy more: Never True. Within the past 12 months the food patient bought did not last and did not have money to get more: Never True Food is needed for this week: No. Caregiver/Childcare: Patient feels overwhelmed with taking care of a child, family member or friend: No. If caregiver is present, patient reports adequate support: Yes. Connections: How often do you feel lonely or isolated from those around you? Never. Plan: Reinforced care plan established by care team Reinforced patient's three red flags by the care team 1: increased SOB at rest or with activity, 2: fever, chills 3: increased cough or wheezing, change in amt/color of sputum Follow Up: Patient encouraged to call the intake phone number for all urgent but not emergent issues. Scheduled to follow up with patient as per scheduled. Lynda Scott [facility] [employer] 06/20/2023 12:54 PM documented in this encounter Plan of Treatment Upcoming Encounters Date Type Specialty Care Team Description 06/25/2023 Office Visit Gynecology Obstetrics DarrelerIsabel CRNP [address] [place] [address] 07/02/2023 Imaging Radiology 09/18/2023 Office Visit Family Medicine Stefany Benitez MD [address] [place] [address] 11/08/2023 Office Visit Cardiology Daniel Cuevas DO [address] [place] [address] 04/07/2024 Imaging Radiology Scheduled Procedures Name Priority [...] ASSESSMENT COMPLETED IN PAST YEAR FOR COPD 06/19/2024 06/19/2023 Pap Smear 05/01/2026 05/01/2023, 04/01, 02/06/2017, Additional [...] the patient have Health Care Power of Gluer And Wedger? No Care Teams Floor Polisher Relationship Specialty Start Date End Date Stefany Benitez MD [address] [place] [address] PCP - General Family Medicine 04/25/22 documented as of this encounter"
--- OUTSIDE RECORDS SUMMARY | 2023-10-21 07:03 | External Medical Summary | Summary of Care ---
Author Name Unknown Organization [facility] Address [address] [facility] [place] [address] Phone [phone] Care Team Providers Care Granite Countertop Installer Name Role Phone Stefany Benitez MD Primary Care Provid er Reason for Visit * Reason Onset Date Comments Medication Refill 07/04/2023 Encounter Details Date Type Department Care Team Description 07/04/2023 Refill Cardiology, [facility] [address] [place] [address] Daniel Cuevas, [address] [place] [address] Hypertension goal BP (blood pressure) < 140/90*; HTN, goal below 140/90 Allergies Active Allergy Reactions Severity Noted Date [...] as of this encounter (statuses as of 07/04/2023) Medications Medication Sig Dispensed Refills Start Date [...] as needed for Cough. 0 Active Umeclidinium [place] 62.5 MCG/ACT Inhalation Aerosol Powder Breath Activated [...] before bedtime. 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 Condyloma acuminatum Moderate COPD (chronic obstructive pulmo nary disease) Overview: Dr Peoples Gastroesophageal reflux disease without esophagitis Depression with anxiety documented as of this encounter (statuses as of 07/04/2023) Resolved Problems Problem Noted Date Resolved Date [...] as of this encounter (statuses as of 07/04/2023) Immunizations Name Administration Dates Next Due COVID-19 mRNA, LNP-s, No Pre serve, 2-Dose Series (Moderna) 01/20/2021,12/23/2020 Pneumococcal Conjugate Vacci ne, 20-valent ([id number]) 05/01/2023 Pneumococcal Polysaccharide PPV23 (Pneumovax) 10/09/2015 SEASONAL [...] encounter Miscellaneous Notes * Telephone Encounter - Jenelle Brennan LPN - 07/04/2023 3:34 PM EDT Patient calling about mychart message sent. Also requesting refill for Lasix. documented in this encounter Plan of Treatment Upcoming Encounters Date Type Specialty Care Team Description 07/11/2023 Office Visit Gynecology Obstetrics BackerIsabel CRNP [address] [place] [address] 09/18/2023 Office Visit Family Medicine Stefany Benitez MD [address] [place] [address] 11/08/2023 Office Visit Cardiology Daniel Cuevas DO [address] [place] [address] 04/07/2024 Imaging Radiology Scheduled Procedures Name Priority [...] season) 2023 01/20/2021, 12/23/2020 Mammogram 04/27/2024 04/27/2023, 0 03/2023, 04/04/2022, Additional history exists GFR 06/19/2024 [...] as of this encounter Visit Diagnoses Diagnosis Hypertension goal BP (blood pressure) < 140/90- Primary Unspecified essential hypertension HTN, goal below 140/90 Unspecified essential hypertension [...] the patient have Health Care Power of Pizzamaker? No Care Teams Granite Countertop Installer Relationship Specialty Start Date End Date Stefany Benitez MD [address] [facility] [place] [address] PCP - General Family Medicine 04/25/22 documented as of this encounter
--- OUTSIDE RECORDS SUMMARY | 2023-10-21 07:03 | External Medical Summary | Summary of Care ---
Author Name Unknown Organization [facility] Address [address] [place] [address] Phone [phone] Care Team Providers Care Employment Evaluator/Case Manager Name Role Phone Stefany Benitez MD Primary Care Provid er Reason for Visit * Reason Comments Outpatient Testing Encounter Details Date Type Department Care Team Description 06/19/2023 Laboratory Laboratory, [place] [address] [place] [address] [place], Laboratory [address] [place] [address] Pneumonia of right lower lobe due to infectious organism; Moderate COPD (chronic obstructive pulmonary disease) ([facility]); Acute on chronic diastolic heart failure due to coronary artery disease ([facility]); Hyponatremia Allergies Active Allergy Reactions Severity Noted Date [...] 1 Tablet before bedtime. 0 Active Umeclidinium [place] 62.5 MCG/ACT Inhalation Aerosol Powder Breath Activated [...] Miller MD on 11/02/2015 Heterozygous for prothrombin [id number] mut ation 09/30/2014 Heterozygous factor V Leiden [...] (Moderna) 01/20/2021,12/23/2020 Pneumococcal Conjugate Vacci ne, 20-valent ([id number]) 05/01/2023 Pneumococcal Polysaccharide PPV23 (Pneumovax) 10/09/2015 Seasonal [...] Visit Family Medicine Lynda Scott, [facility] [facility] [address] [place] [facility] [address] 06/25/2023 Office Visit Gynecology Obstetrics Isabel Manrique CRNP [address] [place] [address] 07/02/2023 Imaging Radiology 09/18/2023 Office Visit Family Medicine Stefany Benitez MD [address] [facility] [place] [address] 11/08/2023 Office Visit Cardiology Daniel Cuevas, DO [address] [place] [address] 04/07/2024 Imaging Radiology Pending Results Name Type [...] artery disease (HCC) 06/19/2023 11:11 AM EDT CBC Lab Routine Pneumonia of right lower lobe due to infectious organism Moderate COPD (chronic obstructive pulmonary disease) (HCC) Acute on chronic diastolic heart failure due to coronary artery disease (HCC) 06/19/2023 11:11 AM EDT DIFFERENTIAL, AUTOMATED Lab Routine Pneumonia of right lower lobe due to infectious organism Moderate COPD (chronic obstructive pulmonary disease) (HCC) Acute on chronic diastolic heart failure due to coronary artery disease (HCC) 06/19/2023 11:11 AM EDT Scheduled Procedures Name Priority Associated [...] < 10) 04/26/2022 04/25/2022 Mammogram 04/27/2024 04/27/2023, 0703/2023, 04/04/2022, Additional history [...] (HCC) Chronic airway obstruction, not elsewhere classified Acute on chronic diastolic heart failure due to coronary artery disease (HCC) Hyponatremia Hyposmolality and/or hyponatremia documented in this encounter Advance Directives Latest [...] the patient have Health Care Power of Tile Shader? No Care Teams Employment Evaluator/Case Manager Relationship Specialty Start Date End Date Stefany Benitez MD [address] [place] [id number] PCP - General Family Medicine 04/25/22 documented as of this encounter
--- OUTSIDE RECORDS SUMMARY | 2023-10-21 07:03 | External Medical Summary ---
Author Name Unknown Address Unknown Organization K01:[facility] - [address] [place] [address] Laboratory Report Ordering Provider Test Date Status CATRINA GOMES 06/19/2023 11:11:48 Final Exclude Heart Failure: <300 pg/mL
Diagnose Heart Failure:
Age <50 yr: >450 pg/mL
50-75 yr: >900 pg/mL
>75 yr: >1800 pg/mL
GFR is 30-59 mL/min: >1200 pg/mL or Age- adjusted values
GFR <30 mL/min: do not use, not reliable

Prognostic threshold: 1000 pg/mL Observation Date Value Abnormality Reference (Units ) Status BNP, Pro-hormone 06/19/2023 11:11:48 2575 Above high no rmal <300 (pg/mL) Final Performing Location [facility] - [facility][note 3] [address] [place] [address]
--- OUTSIDE RECORDS SUMMARY | 2023-10-21 07:04 | External Medical Summary | Summary of Care ---
Author Name Unknown Organization [facility] Address [address] [place] [address] Phone [phone] Care Team Providers Care Child Study Team Director Name Role Phone Stefany Benitez MD Primary Care Provid er Reason for Visit * Reason Onset Date Comments Appointment 05/21/2023 Encounter Details Date Type Department Care Team Description 05/21/2023 Telephone Gynecology/Obstetrics [facility] [address] [place] [address] Services, Scheduling [address] [place] [address] Appointment Allergies Active Allergy Reactions Severity Noted Date [...] as of this encounter (statuses as of 05/22/2023) Medications Medication Sig Dispensed Refills Start Date [...] Active Cetirizine HCl 10 MG Capsule Take 10 mg by mouth daily. 0 Active Zoster Vac Recomb Adjuvanted 50 [...] ONCE DAILY 30 Tablet 11 08/22/2022 Active Furosemide 20 MG Oral Tablet (Lasix)Indications:HT N, goal below 140/90 TAKE 1 TABLET BY MOUTH ONCE DAILY 90 Tablet 3 01/19/2023 Active PARoxetine HCl 40 MG Oral Tablet (pAXil) Take 1 Tablet by mouth in the morning. 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 Condyloma acuminatum Moderate COPD (chronic obstructive pulmo nary disease) Overview: Dr Peoples Gastroesophageal reflux disease without esophagitis Depression with anxiety documented as of this encounter (statuses as of 05/22/2023) Resolved Problems Problem Noted Date Resolved Date [...] as of this encounter (statuses as of 05/22/2023) Immunizations Name Administration Dates Next Due COVID-19 mRNA, LNP-s, No Pre serve, 2-Dose Series (Moderna) 01/20/2021,12/23/2020 Pneumococcal Conjugate Vacci ne, 20-valent ([id number]) 05/01/2023 Pneumococcal Polysaccharide PPV23 (Pneumovax) 10/09/2015 Seasonal Influenza Virus Vac cine, Unspecified Formulation 07/19/2018 Seasonal Influenza, PF, 6 mo ns & Above, IM , (Flulaval) 07/21/2022,06/17/2019 Seasonal Influenza, Quadriva lent, No Preserve, IM [...] Miscellaneous Notes * Telephone Encounter - YOLIS Hui - 05/22/2023 8:44 AM EDT LMOM * Telephone Encounter - Gladis Andrade LPN - 05/21/2023 10:44 AM EDT Please help pt schedule colpo * Telephone Encounter - YOLIS Wilson - 05/21/2023 10:24 AM EDT Spoke to patient, she has a referral in her chart to schedule. I was denied scheduling. Please contact at [phone] and assist. Thank you. documented in this encounter Plan of Treatment Upcoming Encounters Date Type Specialty Care Team Description 06/05/2023 Imaging Radiology 06/25/2023 Office Visit Gynecology Obstetrics Isabel Manrique CRNP [address] [place] [address] 07/02/2023 Imaging Radiology 11/08/2023 Office Visit Cardiology Daniel Cuevas DO [address] [place] [address] 04/07/2024 Imaging Radiology Scheduled Procedures Name Priority [...] visit until score < 10) 04/26/2022 04/25/2022 Influenza Vaccine (FLU shot) (#1) 2023 07/21/2022, 07/03/2020, 06/17/2019, Additional history exists Mammogram 04/27/2024 04/27/2023, 03/2023, 04/04/2022, Additional history exists O2 ASSESSMENT COMPLETED IN PAST YEAR FOR COPD 05/01/2024 05/01/2023 GFR 05/05/2024 05/05/2023, 07/01, 08/19/2021, Additional history [...] (6 to 64 Years) Completed 05/01/2023, 10/09/2015 GARDASIL-HPV IMMUNIZATION SERIES Aged Out No longer [...] the patient have Health Care Power of Food Production Manager? No Care Teams Child Study Team Director Relationship Specialty Start Date End Date Stefany Benitez MD [address] [place] [address] PCP - General Family Medicine 04/25/22 documented as of this encounter
--- OUTSIDE RECORDS SUMMARY | 2023-10-21 07:04 | External Medical Summary ---
Author Name Unknown Address Unknown Organization [id number]:[facility] [place] [address] [facility] [address] Laboratory Report Ordering Provider Test Date Status SALLY KEVINO 05/05/2023 08:08:00 Final Observation Date Value Abnormality Reference (Units ) Status Triglyceride 05/05/2023 08:08:00 53 <=174 ( mg/dL) Final Triglyceride Reference Range s (mg/dL):
<150 Acceptable
150-174 Borderline high
175-499 High
>=500 Very high Cholesterol 05/05/2023 08:08:00 99 <200 (mg /dL) Final Total Cholesterol Reference Ranges (mg/dL):
<200 Desirable
200-239 Borderline high
>=240 High HDL 05/05/2023 08:08:00 51 >49 (mg/dL ) Final HDL Cholesterol Reference Ra nges (mg/dL):
>=60 High (Desirable)
<50 Low (Undesirable) For Females
<40 Low (Undesirable) For Males NON-HDL CHOLESTEROL 05/05/2023 08:08:00 48 <=159 (mg/dL) Final Non-HDL Cholesterol Referenc e Range (mg/dL):
<100 Target level for high risk ASCVD patient
<130 Optimal for general population
130-159 Near optimal for general population
160-189 Borderline High
190-219 High
>=220 Very High LDL, (calculated) 05/05/2023 08:08:00 37 <= 129 (mg/dL) Final LDL Cholesterol Reference Ra nges (mg/dL):
<70 Target level for high risk ASCVD patient
<100 Optimal for general population
100-129 Near optimal for general population
130-159 Borderline high
160-189 High
>=190 Very high Performing Location [facility] [place] [address] [facility] [address]
--- OUTSIDE RECORDS SUMMARY | 2023-10-21 07:04 | External Medical Summary | Summary of Care ---
Author Name Unknown Organization [facility] Address [address] [place] [address] Phone [phone] Care Team Providers Care Analyst Market Intelligence Name Role Phone Stefany Benitez MD Primary Care Provid er Reason for Referral * Evaluate & Treat - Unlimited Visits (Within 30 days (routine)) - Authorized Specialty Diagnoses / Procedures Referred By Rodriguez mcelroy Referred To Contact Obstetrics/Gynecology / Gynecology Obstetrics Diagnoses Abnormal Papanicolaou smear of cervix with positive human papilloma virus (HPV) test Low grade intrepith lesion cyto smr crvx (LGSIL) Stefany Benitez MD [address] [place] [address] Referral ID Status Reason Start Date Expiration Date Visits Requested Visits Authorized [id number] Authorized Specialty Services Required 05/18/2023 999 999 Question Answer Referral Priority Within 30 days (routine) What condition is the patient being seen for? 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 Heterozygous factor V Leiden mutation Fibroadenoma of breast 03/22/2012 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 Condyloma acuminatum Moderate COPD (chronic obstructive pulmo nary disease) Overview: Dr Peoples Gastroesophageal reflux disease without esophagitis Depression with anxiety documented as of this encounter (statuses as of 05/18/2023) Resolved Problems Problem Noted Date Resolved Date [...] as of this encounter (statuses as of 05/18/2023) Immunizations Name Administration Dates Next Due COVID-19 mRNA, LNP-s, No Pre serve, 2-Dose Series (Moderna) 01/20/2021,12/23/2020 Pneumococcal Conjugate Vacci ne, 20-valent ([id number]) 05/01/2023 Pneumococcal Polysaccharide PPV23 (Pneumovax) 10/09/2015 Seasonal [...] Telephone Encounter - Stefany Benitez MD - 05/18/2023 10:08 AM EDT Result note sent Attempted to call pt, left VM "Given your results HPV POS , LSIL Prior results include normal cytology x 2 (2019 and 2016) It is recommended that you receive further testing called colposcopy - I am placing that referral to gynecology now and their office will call you shortly to schedule that." Founder Chairman And Chief Creative Officer order is in AG documented in this encounter Plan of Treatment Upcoming Encounters Date Type Specialty Care Team Description 06/05/2023 Imaging Radiology 07/02/2023 Imaging Radiology 11/08/2023 Office Visit Cardiology Daniel Cuevas, DO [address] [place] [address] 04/07/2024 Imaging Radiology Scheduled Procedures Name Priority Associated Diagnoses Date/Ti me COLONOSCOPY FLEXIBLE PROXIMA L DIAGNOSTIC Recall Encounter for screening colonoscopy Scheduled Referrals Name Type Priority Associated Diagnoses Orde r Schedule PATHOLOGY TEACHER REFERRAL OP Referral Within 30 days (routine) Abnormal Papanicolaou smear of cervix with positive human papilloma virus (HPV) test Low grade intrepith lesion cyto smr crvx (LGSIL) Ordered: 05/18/2023 Health Maintenance Due Date Last Done Comments [...] as of this encounter Visit Diagnoses Diagnosis Abnormal Papanicolaou smear of cervix with positive human papilloma virus (HPV) test- Primary Low grade intrepith lesion cyto smr crvx (LGSIL) documented in this encounter Advance Directives Latest [...] the patient have Health Care Power of Biology Tutor? No Care Teams Analyst Market Intelligence Relationship Specialty Start Date End Date Stefany Benitez MD [address] [place] [address] PCP - General Family Medicine 04/25/22 documented as of this encounter
--- OUTSIDE RECORDS SUMMARY | 2023-10-21 07:04 | External Medical Summary ---
Author Name Unknown Address Unknown Organization [id number]:[facility] [place] [address] [facility] [place] [address] Laboratory Report Ordering Provider Test Date Status CATRINA GOMES 06/19/2023 11:11:48 Final Observation Date Value Abnormality Reference (Units ) Status SYNC LEUKOCYTES IN BLOOD BY AUTOMATED COUNT 06/19/2023 11:11:48 14.45 Above high normal 4.00-10.80 (K/uL) Final Segs 06/19/2023 11:11:48 55.2 40.0-75.0 (%) Final Lymphs % 06/19/2023 11:11:48 34.4 18.0-42.0 (%) Final Monos 06/19/2023 11:11:48 9.0 1.0-11.0 (%) Final Eosinophils 06/19/2023 11:11:48 0.5 0.0-6.0 (%) Final Basos 06/19/2023 11:11:48 0.1 0.0-2.0 (%) Final Immature Granulocyte, Percent 06/19/2023 11:11:48 0.8 0.0-2.0 (%) Final Absolute Segs 06/19/2023 11:11:48 7.98 Above high normal 1.80-7.70 (K/uL) Final Lymphs, absolute 06/19/2023 11:11:48 4.97 Above high normal 1.00-4.80 (K/ul) Final Monos, Abs 06/19/2023 11:11:48 1.30 Above high normal 0.00-1.10 (K/uL) Final Eos, Abs 06/19/2023 11:11:48 0.07 0.00-0.70 (K/uL) Final Basos, Abs 06/19/2023 11:11:48 0.01 0.00-0.20 (K/uL) Final Immature Granulocytes, Number 06/19/2023 11:11:48 0.12 0.00-0.20 (K/uL) Final Performing Location [facility] [place] - [facility] [address] [facility] [address]
--- OUTSIDE RECORDS SUMMARY | 2023-10-21 07:04 | External Medical Summary | Summary of Care ---
Author Name Unknown Organization [facility] Address [address] [place] [address] Phone [phone] Care Team Providers Care Personnel Interviewer Name Role Phone Stefany Benitez MD Primary Care Provid er Reason for Referral * Evaluate & Treat - Unlimited Visits (Within 3 days (urgent)) - Authorized Specialty Diagnoses / Procedures Referred By Rodriguez mcelroy Referred To Contact Pharmacovigilance Scientist Diagnoses Moderate COPD (chronic obstructive pulmonary disease) (HCC) Stefany Benitez MD [address] [place] [address] Referral ID Status Reason Start Date Expiration Date Visits Requested Visits Authorized [id number] Authorized Specialty Services Required 06/18/2023 1 1 Question Answer Referral Priority Within 3 days (urgent) Program Type Case Management Complex Case Management [facility] Health Device(s) Requested Other (See Comment) Alarm Settings Standard per protocol Comments Primary Pharmacovigilance Scientist: Melissa Pressley RN Is the patient already enrolled with another [facility] device/service? (If no, will need to "push the button") No Does the patient have a physical address? (If no, provide physical address if requesting device) Yes Requested Devices/IVR: IVR Post-Discharge Start date: 06/21/23 How many weeks: 4 If want time other than 9am, note time here: call [phone] at 10 am thanks Melissa Pressley RN Reason for Visit * Reason Onset Date Comments Follow Up 06/18/2023 Encounter Details Date Type Department Care Team Description 06/18/2023 Pharmacovigilance Scientist Telephone [facility] [address] [place] [address] Melissa Pressley, [place] [address] [place] [address] Follow Up Allergies Active Allergy Reactions Severity Noted Date [...] as of this encounter (statuses as of 06/18/2023) Medications Medication Sig Dispensed Refills Start Date [...] 1 Tablet before bedtime. 0 Active Umeclidinium [place] 62.5 MCG/ACT Inhalation Aerosol Powder Breath Activated (INCRUSE ellipta) Inhale 1 Puff by mouth in the morning. 0 Active Furosemide 20 MG Oral Tablet (Lasix) Take 1 Tablet by mouth in the morning and 1 Tablet before bedtime. 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 Condyloma acuminatum Moderate COPD (chronic obstructive pulmo nary disease) Overview: Dr Peoples Gastroesophageal reflux disease without esophagitis Depression with anxiety documented as of this encounter (statuses as of 06/18/2023) Resolved Problems Problem Noted Date Resolved Date [...] as of this encounter (statuses as of 06/18/2023) Immunizations Name Administration Dates Next Due COVID-19 mRNA, LNP-s, No Pre serve, 2-Dose Series (Moderna) 01/20/2021,12/23/2020 Pneumococcal Conjugate Vacci ne, 20-valent ([id number]) 05/01/2023 Pneumococcal Polysaccharide PPV23 (Pneumovax) 10/09/2015 Seasonal [...] Encounters Date Type Specialty Care Team Description 06/19/2023 Office Visit Family Medicine Seng Arias MD [address] [place] [facility] [place] [address] 06/25/2023 Office Visit Gynecology Obstetrics Isabel Manrique CRNP [address] [place] [address] 07/02/2023 Imaging Radiology 11/08/2023 Office Visit Cardiology Daniel Cuevas DO [address] [place] [address] 04/07/2024 Imaging Radiology Scheduled Procedures Name Priority Associated Diagnoses Date/Ti me COLONOSCOPY FLEXIBLE PROXIMA L DIAGNOSTIC Recall Encounter for screening colonoscopy Scheduled Referrals Name Type Priority Associated Diagnoses Orde r Schedule REMOTE PATIENT MONITORING REFERRAL Referral Within 3 days (urgent) Moderate COPD (chronic obstructive pulmonary disease) (HCC) Ordered: 06/18/2023 Health Maintenance Due Date Last Done Comments [...] 06/17/2019, Additional history exists Mammogram 04/27/2024 04/27/2023, 07/0 03/2023, 04/04/2022, Additional [...] the patient have Health Care Power of Clinical Nursing Instructor? No Care Teams Personnel Interviewer Relationship Specialty Start Date End Date Stefany Benitez MD [address] [place] [address] PCP - General Family Medicine 04/25/22 documented as of this encounter
--- OUTSIDE RECORDS SUMMARY | 2023-10-21 07:04 | External Medical Summary ---
Author Name Unknown Address Unknown Organization K01:[facility]ORY [facility] [place] - [address] [facility] [address] Laboratory Report Ordering Provider Test Date Status DORITALEANDER 05/05/2023 08:08:00 Final Observation Date Value Abnormality Reference (Units ) Status HbA1C 05/05/2023 08:08:00 5.1 4.0-5.6 (% ) Final The use of HbA1c to monitor glycemic status is based on normal hemoglobin and HbA composition. This test should not be used in patients with abnormal hemoglobin that affects the half life of the red blood cell or the in vivo glycation rates. Glucose, estimated average 05/05/2023 08:08:00 100 <126 (mg/dL) Final Performing Location [facility] [place] [facility] [address] [facility] [address]
--- OUTSIDE RECORDS SUMMARY | 2023-10-21 07:04 | External Medical Summary | Summary of Care ---
Author Name Unknown Organization [facility] Address [address] [place] [address] Phone [phone] Care Team Providers Care Assembly Worker Name Role Phone Stefany Benitez MD Primary Care Provid er Encounter Details Date Type Department Care Team Description 06/18/[address] [address] Melissa Pressley, RN [address] [place] [address] Moderate COPD (chronic obstructive pulmonary disease) ([facility])* Allergies Active Allergy Reactions Severity Noted Date [...] 11 07/05/2016 Active clonazePAM (KLONOPIN) 0.5 MG TabletIndications:D epression with anxiety Take 1 Tab by mouth [...] Recomb Adjuvanted 50 MCG/0.5ML Intramuscular Suspension Reconstituted (Shingrix)Indicatio ns:Need for vaccination for zoster Inject 0.5 mL [...] Active Atorvastatin Calcium 20 MG Oral Tablet (Lipitor)Indication s:Dyslipidemia, goal LDL below 70 TAKE 1 TABLET [...] 1 Tablet before bedtime. 0 Active Umeclidinium [place] 62.5 MCG/ACT Inhalation Aerosol Powder Breath Activated (INCRUSE ellipta) Inhale 1 Puff by mouth in the morning. 0 Active Furosemide 20 MG Oral Tablet (Lasix) Take 1 Tablet by mouth in the morning and 1 Tablet before bedtime. 0 Active Furosemide 20 MG Oral Tablet (Lasix)Indications: HTN, goal below 140/90 TAKE 1 TABLET BY MOUTH ONCE DAILY 90 Tablet 3 01/19/2023 3 Discontinue d(Medicatio n/Dose Changed) documented as of this encounter (statuses as [...] Miller MD on 11/02/2015 Heterozygous for prothrombin [id number] mut ation 09/30/2014 Heterozygous factor V Leiden [...] (Moderna) 01/20/2021,12/23/2020 Pneumococcal Conjugate Vacci ne, 20-valent ([id number]) 05/01/2023 Pneumococcal Polysaccharide PPV23 (Pneumovax) 10/09/2015 Seasonal [...] Progress Notes * Melissa Pressley RN - 06/18/2023 10:46 AM EDT Hop Weigher Progress Note: Date: 06/18/23 Assigned Patient Tier: 2 Connected with patient via phone. Verified patient name/. Advised patient that call is being recorded for quality and training purposes. Assessment: Pt. noted the following: Patient denies SOB, cough, LE edema or angina Patient says she quit smoking prior to hospitalization Has a good appetite, confirmed she is trying to stick to a 1800cc fluid restriction. Denies bowel/bladder complaints No complaints of pain, no skin issues, sleeping okay at night Lives in a 2 story home with 1st floor set up with her significant other Alvaro Patient states she is independent with ambulation & ADL's,Alvaro does the driving Patient states she manages her own medications Advance directives information sent to patient Confirmed she has a follow up appointment with Dr. Arias on 06/19/23 Patient confirms she continues to be followed by Anali every 3 months Will send out a [facility] to do medication review, check for home safety Will enroll in post d/c IVR calls Did you receive an alert for an annual wellness visit? No Is this call for a hospital, care home or rehab facility discharge to home? Yes [facility] admit on 06/11/23-treated for respiratory failure, Pneumonia & Hyponatremia, discharged home on 06/15/23 Medication Reconciliation: Medication Reconciliation completed: yes Review of Current goals: Discussed the following patient-centered CM goals with the patient during this discussion: -COPD: Achieve successful management of COPD -Status: On Track patient denies SOB, cough, confirmed she is using her inhalers as ordered. -HYPERTENSION: Achieve successful management/treatment of HTN -Status: On Track medication changes made due to HTN in the hospital, patient confirms she is taking the new medications as prescribed. -SAFETY: Prevent falls or injuries -Status: On Track patient independent with ambulation & ADL's. COPD Patient: YES Breathing: Breathing at Baseline CHF Patient: NO CM Plan: Reviewed 3 Red Flags with patient. Advised to call CM with any of the following: Red Flag 1: increased SOB at rest or with activity, Red Flag 2: fever, chills, or Red Flag 3: increased cough or wheezing, change in amt/color of sputum and Referral to: MARLENY for check home safety, do bottles out medication review. Remote Patient Monitoring: At this time, RPM not offered/considered for patient due to not needed at this time, patient refusing, states she will get a pulse oximeter. Plan for Future Contacts: Plan to follow up within 1 week to check progress on the following goals/needs fas above. Planned contacts from the following parties will occur this week: PCP office visit as additional contacts per workflow. Advancement/Closure Plan: Keep patient at current Tier with reassessment per workflow. Patient provided CM contact information and encouraged to call with any changes in condition. SNP Member? Yes Is Provider in agreement with POC? Yes PCP Notified of enrollment in CM/HM program: Yes Is Provider in agreement with POC? Yes Melissa Pressley, RN Outpatient Case Management documented in this encounter Plan of Treatment Upcoming Encounters Date Type Specialty Care Team Description 06/19/2023 Office Visit Family Medicine Sneg Arias MD [address] [place] [address] 06/25/2023 Office Visit Gynecology Obstetrics BackerIsabel CRNP [address] [place] [address] 07/02/2023 Imaging Radiology 11/08/2023 Office Visit Cardiology Daniel Cuevas DO [address] [place] [address] 04/07/2024 Imaging Radiology Scheduled Procedures Name Priority [...] the patient have Health Care Power of Panel Raiser Operator? No Care Teams Assembly Worker Relationship Specialty Start Date End Date Stefany Benitez MD [address] [place] [address] [id number] PCP - General Family Medicine 04/25/22 documented as of this encounter
--- OUTSIDE RECORDS SUMMARY | 2023-10-21 07:04 | External Medical Summary ---
Author Name Unknown Address Unknown Organization K01:[facility] [place] - [address] [facility] [place] [address] Laboratory Report Ordering Provider Test Date Status CATRINA GOMES 06/19/2023 11:11:48 Final Observation Date Value Abnormality Reference (Units ) Status BUN 06/19/2023 11:11:48 23 Above high normal 6-20 (mg/dL) Final Creatinine 06/19/2023 11:11:48 1.1 Above high normal 0.5-1.0 (mg/dL) Final Glomerular filtration rate/1.73 sq M.predicted [Volume Rate/Area] in Serum, Plasma or Blood by Creatinine-based formula (CKD-EPI) 06/19/2023 11:11:48 61 >=60 (mL/min) Final eGFR is calculated based on the CKD-EPI 2020 equation SODIUM 06/19/2023 11:11:48 136 135-146 (m mol/L) Final Potassium 06/19/2023 11:11:48 3.9 3.5-5.1 (m mol/L) Final Cl 06/19/2023 11:11:48 96 Below low normal 98- 107 (mmol/L) Final CO2 06/19/2023 11:11:48 31 22-32 (mmo l/L) Final Anion gap 06/19/2023 11:11:48 9 7-15 (mmol /L) Final Glucose 06/19/2023 11:11:48 91 70-120 (mg /dL) Final Albumin 06/19/2023 11:11:48 3.8 3.8-5.0 (g /dL) Final AST (Aspartate aminotransferase) 06/19/2023 11:11:48 28 10-35 (U/L) Fin al Alk Phos 06/19/2023 11:11:48 63 35-130 (U/ L) Final Bilirubin, Total 06/19/2023 11:11:48 0.5 <=1 .2 (mg/dL) Final Calcium 06/19/2023 11:11:48 8.8 8.4-10.2 ( mg/dL) Final Protein 06/19/2023 11:11:48 6.0 6.0-8.3 (g /dL) Final ALT (Alanine aminotransferase) 06/19/2023 11:11:48 42 Above high normal 10-35 (U/L) Final Performing Location [facility] [place] - [address] [facility] [address]
--- OUTSIDE RECORDS SUMMARY | 2023-10-21 07:04 | External Medical Summary | Summary of Care ---
Author Name Unknown Organization [facility] Address [address] [place] [address] Phone [phone] Care Team Providers Care Fisher Trammel Net Name Role Phone Stefany Benitez MD Primary Care Provid er Reason for Visit * Reason Onset Date Comments Advice 06/07/2023 Encounter Details Date Type Department Care Team Description 06/07/[address] 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 Condyloma acuminatum Moderate COPD (chronic obstructive pulmo nary disease) Overview: Dr Peoples Gastroesophageal reflux disease without esophagitis Depression with anxiety documented as of this encounter (statuses as of 06/15/2023) Resolved Problems Problem Noted Date Resolved Date [...] as of this encounter (statuses as of 06/15/2023) Immunizations Name Administration Dates Next Due COVID-19 mRNA, LNP-s, No Pre serve, 2-Dose Series (Moderna) 01/20/2021,12/23/2020 Pneumococcal Conjugate Vacci ne, 20-valent ([id number]) 05/01/2023 Pneumococcal Polysaccharide PPV23 (Pneumovax) 10/09/2015 Seasonal [...] Telephone Encounter - Stefany Benitez MD - 06/15/2023 10:38 AM EDT MyG sent. Read by patient on 06/09 AG * Telephone Encounter - YOLIS Moura - 06/07/2023 1:24 PM EDT Spoke to pt, has some questions about her dexa scan. Pt read results online, please advise, thanks documented in this encounter Plan of Treatment Upcoming Encounters Date Type Specialty Care Team Description 06/19/2023 Office Visit Family Medicine [facility] [address] [facility] [address] 06/25/2023 Office Visit Gynecology Obstetrics Isabel Manrique CRNP [address] [place] [address] 07/02/2023 Imaging Radiology 11/08/2023 Office Visit Cardiology Daniel Cuevas DO [address] [place] [address] 04/07/2024 Imaging Radiology Scheduled Procedures Name Priority [...] the patient have Health Care Power of Dross Skimmer? No Care Teams Fisher Trammel Net Relationship Specialty Start Date End Date Stefany Benitez MD [address] [place] [address] PCP - General Family Medicine 04/25/22 documented as of this encounter
--- OUTSIDE RECORDS SUMMARY | 2023-10-21 07:04 | External Medical Summary | Summary of Care ---
Author Name Unknown Organization [facility] Address [address] [place] [address] Phone [phone] Care Team Providers Care Health Director Name Role Phone Stefany Benitez MD [...] cyto smr crvx (LGSIL) Stefany Benitez MD [address] [place] [address] Referral ID Status Reason Start Date Expiration Date Visits Requested Visits Authorized [id number] Authorized Specialty Services Required 05/18/2023 999 999 Question Answer Referral Priority Within 30 days (routine) What condition is the patient being seen for? Abnormal Pap Encounter Details Date Type Department Care Team Description 05/18/2023 [facility] [address] [place] [facility] [place] [address] Stefany Benitez MD [address] [place] [address] Allergies Active Allergy Reactions Severity [...] Miller MD on 11/02/2015 Heterozygous for prothrombin [id number] mut ation 09/30/2014 Heterozygous factor V Leiden [...] (Moderna) 01/20/2021,12/23/2020 Pneumococcal Conjugate Vacci ne, 20-valent ([id number]) 05/01/2023 Pneumococcal Polysaccharide PPV23 (Pneumovax) 10/09/2015 Seasonal [...] will call you shortly to schedule that." Telemetry Registered Nurse order is in AG documented in this encounter Plan of Treatment Upcoming Encounters Date Type Specialty Care Team Description 06/05/2023 Imaging Radiology 07/02/2023 Imaging Radiology 11/08/2023 Office Visit Cardiology Daniel Cuevas, DO [address] [place] [address] 04/07/2024 Imaging Radiology Scheduled Procedures Name Priority Associated Diagnoses Date/Ti me COLONOSCOPY FLEXIBLE PROXIMA L DIAGNOSTIC Recall Encounter for screening colonoscopy Scheduled Referrals Name Type Priority Associated Diagnoses Orde r Schedule EMBEDDED SYSTEMS SOFTWARE ENGINEER REFERRAL OP Referral Within 30 days (routine) [...] patient have Health Care Power of Automatic Die Cutting Machine Operator? No Care Teams Health Director Relationship Specialty Start Date End Date Stefany Benitez MD [address] [place] [address] PCP - General Family Medicine 04/25/22 documented as of this encounter
--- OUTSIDE RECORDS SUMMARY | 2023-10-21 07:04 | External Medical Summary | Summary of Care ---
Author Name Unknown Organization [facility] Address [address] [place] [address] Phone [phone] Care Team Providers Care Service Assistant Name Role Phone Stefany Benitez MD Primary Care Provid er Reason for Visit * Reason Onset Date Comments Order Request 04/30/2023 Breast Bx Encounter Details Date Type Department Care Team Description 04/30/2023 Telephone [facility] [address] [place] [address] Stefany Benitez MD [address] [place] [address] Order Request (Breast Bx ) Allergies Active Allergy Reactions Severity Noted Date [...] as of this encounter (statuses as of 05/02/2023) Medications Medication Sig Dispensed Refills Start Date [...] 08/22/2022 Active Furosemide 20 MG Oral Tablet (Lasix)Indications: HTN, goal below 140/90 TAKE 1 TABLET BY MOUTH ONCE DAILY 90 Tablet 3 01/19/2023 Active Sertraline HCl 50 MG Oral Tablet Take 1 Tablet by mouth in the morning. 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 Condyloma acuminatum Moderate COPD (chronic obstructive pulmo nary disease) Overview: Dr Peoples Gastroesophageal reflux disease without esophagitis Depression with anxiety documented as of this encounter (statuses as of 05/02/2023) Resolved Problems Problem Noted Date Resolved Date [...] as of this encounter (statuses as of 05/02/2023) Immunizations Name Administration Dates Next Due COVID-19 mRNA, LNP-s, No Pre serve, 2-Dose Series (Moderna) 01/20/2021,12/23/2020 Diptheria/Tetanus (Adult) 02/28/1979 OPV - Polio Virus Vaccine (Oral) 02/28/1979 Pneumococcal Conjugate Vacci ne, 20-valent ([id number]) 05/01/2023 Pneumococcal Polysaccharide PPV23 (Pneumovax) 10/09/2015 Seasonal Influenza Virus Vac cine, Unspecified Formulation 07/19/2018 Seasonal Influenza, Quadriva lent, No Preserve, 6 Mons & Above, IM 07/21/2022,06/17/2019 Seasonal Influenza, Quadriva lent, No Preserve, IM 07/03/2020,07/19/2016 Seasonal Influenza, Split, I IV3, With Preserve, Inj 08/01/2017,09/16/2015,08/10/2009 TD - Tetanus/Diptheria (ADULT) 07/17/2002 TDAP (age 10 and older)(Boostrix) 10/13/2009 documented as of this encounter Social History Tobacco Use Types Packs/Day Years Used Date Smoking Tobacco: Every Day Cigarettes 1 40 Last attempted to quit: 07/19/2015 Smokeless Tobacco: Never Comments:boyfriend smokes Alcohol Use Standard Drinks/Week Comments Yes 0 (1 standard drink = 0.6 oz [...] Miscellaneous Notes * Telephone Encounter - YOLIS Beltran - 05/02/2023 9:25 AM EDT Orders are linked to appointments. 05/02/2023 * Telephone Encounter - Stefany Benitez MD - 05/01/2023 4:32 PM EDT signed * Telephone Encounter - YOLIS Somers - 04/30/2023 10:02 AM EDT Per 04/27 diagnostic breast ultrasound recommendation, patient is scheduled 05/15 for right ultrasound guided core biopsy. Order pended. Please review and sign if acceptable. Recommendation US guided breast core biopsy is recommended for the right breast. The above findings and recommendations were discussed with and understood by the patient. Thank you documented in this encounter Plan of Treatment Upcoming Encounters Date Type Specialty Care Team Description 05/05/2023 Laboratory [facility] [address] [place] [address] 05/15/2023 Imaging Radiology 05/15/2023 Imaging Radiology 06/05/2023 Imaging Radiology 07/02/2023 Imaging Radiology 11/08/2023 Office Visit Cardiology Daniel Cuevas DO [address] [place] [address] 04/07/2024 Imaging Radiology Scheduled Orders Name Type Priority Associated Diagnoses Orde r Schedule US GUIDED BREAST BIOPSY RIGHT Medical Imaging Routine Abnormal ultrasound of breast Expected: 05/01/2023 (Approximate), Expires: 05/31/2024 Scheduled Procedures Name Priority Associated Diagnoses Date/Ti me COLONOSCOPY FLEXIBLE PROXIMA L DIAGNOSTIC Recall Encounter for screening colonoscopy Health Maintenance Due Date Last Done Comments Hepatitis B (1 of 3 - 3-dose series) 1966 Albumin/Creatinine Ratio 1984 Alpha-1 Antitrypsin 1984 Hepatitis C Screening 1984 HPV/Co-Test 1996 Cologuard 2011 Fecal Occult Blood Test 2011 Sigmoidoscopy 2011 Zoster Vaccines (1 of 2) 2016 DTaP,Tdap,and Td Vaccines (3 - Td or Tdap) 10/13/2019 10/13/2009, 07/17/2002, 02/28/1979 COVID-19 Vaccine (3 - Moderna series) 03/17/2021 01/20/2021, 12/23/2020 Depression, Most Recent Score >= 10 (will fire each visit until score < 10) 04/26/2022 04/25/2022 Cervical Cancer Screening 04/21/2023 Pap Smear 04/21/2023 04/21/2020, 05/06/2017, 10/23/2013, Additional history exists Influenza Vaccine (FLU shot) (#1) 2023 07/21/2022, 07/03/2020, 06/17/2019, Additional history exists GFR 07/15/2023 07/15/2022, 08/01, 07/10/2021, Additional history exists Mammogram 04/27/2024 04/27/2023, 0703/2023, 04/04/2022, Additional history exists O2 ASSESSMENT COMPLETED IN PAST YEAR FOR COPD 05/01/2024 05/01/2023 Colonoscopy 08/03/2026 08/03/2016, 08/03/2016 Colorectal Cancer Screening 08/03/2026 *COPD SEVERITY VERIFIED BY PFT Addressed 08/01/2017 [...] of this encounter Visit Diagnoses Diagnosis Abnormal ultrasound of breast- Primary Other (abnormal) findings on radiological examination of breast documented in this encounter Advance Directives Latest [...] the patient have Health Care Power of Poultry Farmworker? No Care Teams Service Assistant Relationship Specialty Start Date End Date Stefany Benitez MD [address] [facility] [place] [address] PCP - General Family Medicine 04/25/22 documented as of this encounter
--- OUTSIDE RECORDS SUMMARY | 2023-10-21 07:04 | External Medical Summary | Summary of Care ---
Author Name Unknown Organization [facility] Address [address] [place] [address] Phone [phone] Care Team Providers Care Galvanizer Zinc Name Role Phone Stefany Benitez MD Primary Care Provid er Encounter Details Date Type Department Care Team Description 06/12/2023 Orders Only [facility] [address] [place] [address] Stefany Benitez MD [address] [place] [address] Allergies Active Allergy Reactions Severity [...] as of this encounter (statuses as of 06/12/2023) Medications Medication Sig Dispensed Refills Start Date [...] as of this encounter (statuses as of 06/12/2023) Active Problems Problem Noted Date Postmenopausal status, [...] Miller MD on 11/02/2015 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 mut ation 09/30/2014 Heterozygous factor V Leiden mutation Fibroadenoma of breast 03/22/2012 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 Condyloma acuminatum Moderate COPD (chronic obstructive pulmo nary disease) Overview: Dr Peoples Gastroesophageal reflux disease without esophagitis Depression with anxiety documented as of this encounter (statuses as of 06/12/2023) Resolved Problems Problem Noted Date Resolved Date [...] as of this encounter (statuses as of 06/12/2023) Immunizations Name Administration Dates Next Due COVID-19 mRNA, LNP-s, No Pre serve, 2-Dose Series (Moderna) 01/20/2021,12/23/2020 Pneumococcal Conjugate Vacci ne, 20-valent ([id number]) 05/01/2023 Pneumococcal Polysaccharide PPV23 (Pneumovax) 10/09/2015 Seasonal [...] Team Description 06/25/2023 Office Visit Gynecology Obstetrics Isabel Manrique CRNP [address] [place] [address] 07/02/2023 Imaging Radiology 11/08/2023 Office Visit Cardiology Daniel Cuevas DO [address] [place] [address] 04/07/2024 Imaging Radiology Scheduled Procedures Name Priority [...] Procedure Name Priority Date/Time Associated Diagnosis Comments CT PULMONARY EMBOLUS W CONTRAST Routine 06/11/2023 documented in this encounter Results * CT PULMONARY EMBOLUS W CONTRAST (06/11/2023) Anatomical Region Laterality Modality Chest, Cardio, Body Other 06/11/2023 Emmie Cortez DO RAD CT documented in this encounter Advance Directives Latest [...] the patient have Health Care Power of Drier? No Care Teams Galvanizer Zinc Relationship Specialty Start Date End Date Stefany Benitez MD [address] [place], [place] [phone] PCP - General Family Medicine 04/25/22 documented as of this encounter
--- OUTSIDE RECORDS SUMMARY | 2023-10-21 07:04 | External Medical Summary | Summary of Care ---
Author Name Unknown Organization [facility] Address [address] [place] [address] Phone [phone] Care Team Providers Care It Consulting Director Name Role Phone Stefany Benitez MD Primary Care Provid er Reason for Visit * Reason Onset Date Comments Left Message 06/18/2023 Encounter Details Date Type Department Care Team Description 06/18/2023 [place] Telephone [facility] [address] [place] [address] Melissa Pressley, [place] [address] [place] [address] Left Message Allergies Active Allergy Reactions Severity Noted Date [...] Miller MD on 11/02/2015 Heterozygous for prothrombin [id number] mut ation 09/30/2014 Heterozygous factor V Leiden [...] (Moderna) 01/20/2021,12/23/2020 Pneumococcal Conjugate Vacci ne, 20-valent ([id number]) 05/01/2023 Pneumococcal Polysaccharide PPV23 (Pneumovax) 10/09/2015 Seasonal [...] encounter Miscellaneous Notes * Telephone Encounter - Melissa Pressley RN - 06/18/2023 9:36 AM EDT Follow-up Post Discharge Attempted Phone Call First Attempt Call Outcome Left Voicemail/Message Plan To attempt another outreach Melissa Pressley RN documented in this encounter Plan of Treatment Upcoming Encounters Date Type Specialty Care Team Description 06/19/2023 Office Visit Family Medicine Seng Arias MD [address] [place] [address] 06/25/2023 Office Visit Gynecology Obstetrics BackerIsabel CRNP [address] [place] [address] 07/02/2023 Imaging Radiology 11/08/2023 Office Visit Cardiology Daniel Cuevas DO [address] [place] [address] 04/07/2024 Imaging Radiology Scheduled Procedures Name Priority [...] the patient have Health Care Power of Filler Blender? No Care Teams It Consulting Director Relationship Specialty Start Date End Date Stefany Benitez MD [address] [place], [place] [phone] PCP - General Family Medicine 04/25/22 documented as of this encounter
--- OUTSIDE RECORDS SUMMARY | 2023-10-21 07:04 | External Medical Summary ---
Author Name Unknown Address Unknown Organization [id number]:[facility] [place] [facility] [address] [place] [address] Laboratory Report Ordering Provider Test Date Status LEANDER KEVIN 05/05/2023 08:08:00 Final Normal: <30 mg/g creatinine< br/>High: 30-300 mg/g creatinine
Very High: >300 mg/g creatinine
Nephrotic: >2200 mg/g creatinine Observation Date Value Abnormality Reference (Units ) Status Albumin, Urine 05/05/2023 08:08:00 <1.20 (mg/dL) Final Creatinine, Urine 05/05/2023 08:08:00 61 (mg/dL) Final Albumin/Creatinine [Mass Ratio] in Urine 05/05/2023 08:08:00 <20 <30 (mg/g Creat) Final Performing Location [facility] [place] - [address] [place] [address]
--- OUTSIDE RECORDS SUMMARY | 2023-10-21 07:04 | External Medical Summary ---
Author Name Unknown Address Unknown Organization [id number][facility] [address] [place] [address] Laboratory Report Ordering Provider Test Date Status LEANDER KEVIN 05/05/2023 08:08:00 Final Observation Date Value Abnormality Reference (Units ) Status BUN 05/05/2023 08:08:00 10 6-20 (mg/dL) Final Creatinine 05/05/2023 08:08:00 1.1 Above high normal 0.5-1.0 (mg/dL) Final Glomerular filtration rate/1.73 sq M.predicted [Volume Rate/Area] in Serum, Plasma or Blood by Creatinine-based formula (CKD-EPI) 05/05/2023 08:08:00 60 >=60 (mL/min) Final eGFR is calculated based on the CKD-EPI 2020 equation SODIUM 05/05/2023 08:08:00 133 Below low normal 135 -146 (mmol/L) Final Potassium 05/05/2023 08:08:00 4.5 3.5-5.1 (m mol/L) Final Cl 05/05/2023 08:08:00 100 98-107 (mm ol/L) Final CO2 05/05/2023 08:08:00 22 22-32 (mmo l/L) Final Anion gap 05/05/2023 08:08:00 11 7-15 (mmol /L) Final Glucose 05/05/2023 08:08:00 90 70-120 (mg /dL) Final Albumin 05/05/2023 08:08:00 4.0 3.8-5.0 (g /dL) Final AST (Aspartate aminotransferase) 05/05/2023 08:08:00 25 10-35 (U/L) Fin al Alk Phos 05/05/2023 08:08:00 85 35-130 (U/ L) Final Bilirubin, Total 05/05/2023 08:08:00 0.7 <=1 .2 (mg/dL) Final Calcium 05/05/2023 08:08:00 8.8 8.4-10.2 ( mg/dL) Final Protein 05/05/2023 08:08:00 6.3 6.0-8.3 (g /dL) Final ALT (Alanine aminotransferase) 05/05/2023 08:08:00 29 10-35 (U/L) Mat melendez Performing Location LAB[facility]ATORY [facility] [address] [place] [address]
--- OUTSIDE RECORDS SUMMARY | 2023-10-21 07:04 | External Medical Summary | Summary of Care ---
Author Name Unknown Organization [facility] Address [address] [facility] [place] [address] Phone [phone] Care Team Providers Care Push Bench Operator Helper Name Role Phone Stefany Benitez MD Primary Care Provid er Reason for Visit * Reason Comments Outpatient Testing Encounter Details Date Type Department Care Team Description 05/05/2023 Laboratory Laboratory, [facility] [address] [place] [id number] [facility] [address] [place] [address] Dyslipidemia, goal LDL below 70; Elevated glucose; Hypertension goal BP (blood pressure) < 140/90; Hypovitaminosis D Allergies Active Allergy Reactions Severity Noted Date [...] as of this encounter (statuses as of 05/05/2023) Medications Medication Sig Dispensed Refills Start Date [...] as of this encounter (statuses as of 05/05/2023) Active Problems Problem Noted Date Postmenopausal status, [...] Miller MD on 11/02/2015 Heterozygous for prothrombin [id number] mut ation 09/30/2014 Heterozygous factor V Leiden mutation Fibroadenoma of breast 03/22/2012 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 Condyloma acuminatum Moderate COPD (chronic obstructive pulmo nary disease) Overview: Dr Peoples Gastroesophageal reflux disease without esophagitis Depression with anxiety documented as of this encounter (statuses as of 05/05/2023) Resolved Problems Problem Noted Date Resolved Date [...] as of this encounter (statuses as of 05/05/2023) Immunizations Name Administration Dates Next Due COVID-19 mRNA, LNP-s, No Pre serve, 2-Dose Series (Moderna) 01/20/2021,12/23/2020 Pneumococcal Conjugate Vacci ne, 20-valent ([id number]) 05/01/2023 Pneumococcal Polysaccharide PPV23 (Pneumovax) 10/09/2015 Seasonal [...] Encounters Date Type Specialty Care Team Description 05/15/2023 Imaging Radiology 05/15/2023 Imaging Radiology 06/05/2023 Imaging Radiology 07/02/2023 Imaging Radiology 11/08/2023 Office Visit Cardiology Daniel Cuevas, DO [address] [place] [address] 04/07/2024 Imaging Radiology Pending Results Name Type Priority Associated Diagnoses Date /Time LIPID PANEL WITH DIRECT LDL IF TG IS HIGH Lab Routine Dyslipidemia, goal LDL below 70 05/05/2023 8:08 AM EDT HEMOGLOBIN A1C Lab Routine Elevated glucose 05/05/2023 8:08 AM EDT COMPREHENSIVE METABOLIC PANEL Lab Routine Dyslipidemia, goal LDL below 70 Hypertension goal BP (blood pressure) < 140/90 05/05/2023 8:08 AM EDT ALBUMIN / CREATININE RATIO, URINE Lab Routine Hypertension goal BP (blood pressure) < 140/90 05/05/2023 8:08 AM EDT 25-HYDROXY VITAMIN D Lab Routine Hypovitaminosis D 05/05/2023 8:08 AM EDT Scheduled Procedures Name Priority Associated [...] Cancer Screening 04/21/2023 Pap Smear 04/21/2023 04/21/2020, 06/2017, 10/23/2013, Additional history exists Influenza Vaccine (FLU shot) (#1) 2023 07/21/2022, 07/03/2020, 06/17/2019, Additional history exists GFR 07/15/2023 07/15/2022, 08/01, 07/10/2021, Additional history exists Mammogram 04/27/2024 04/27/2023, 03/2023, [...] LDL below 70 Other and unspecified hyperlipidemia Elevated glucose Other abnormal glucose Hypertension goal BP (blood pressure) < 140/90 Unspecified essential hypertension Hypovitaminosis D Unspecified vitamin D deficiency documented in this encounter Advance Directives Latest [...] the patient have Health Care Power of Day Care Home Mother? No Care Teams Push Bench Operator Helper Relationship Specialty Start Date End Date Stefany Benitez MD [address], [place] [phone] PCP - General Family Medicine 04/25/22 documented as of this encounter
--- OUTSIDE RECORDS SUMMARY | 2023-10-21 07:04 | External Medical Summary | Summary of Care ---
Author Name Unknown Organization [facility] Address [address] [place] [address] Phone [phone] Care Team Providers Care Production Maintenance Technician Name Role Phone Stefany Benitez MD Primary Care Provid er Reason for Visit * Reason Onset Date Comments Appointment 05/21/2023 Encounter Details Date Type Department Care Team Description 05/21/2023 Telephone Gynecology/Obstetrics [facility] [address] [place] [address] Services, Scheduling [address] [place] [address] Appointment Allergies Active Allergy Reactions Severity Noted [...] as of this encounter (statuses as of 05/23/2023) Medications Medication Sig Dispensed Refills Start Date [...] as of this encounter (statuses as of 05/23/2023) Active Problems Problem Noted Date Postmenopausal status, [...] Miller MD on 11/02/2015 Heterozygous for prothrombin [id number] mut ation 09/30/2014 Heterozygous factor V Leiden mutation Fibroadenoma of breast 03/22/2012 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 Condyloma acuminatum Moderate COPD (chronic obstructive pulmo nary disease) Overview: Dr Peoples Gastroesophageal reflux disease without esophagitis Depression with anxiety documented as of this encounter (statuses as of 05/23/2023) Resolved Problems Problem Noted Date Resolved Date [...] as of this encounter (statuses as of 05/23/2023) Immunizations Name Administration Dates Next Due COVID-19 mRNA, LNP-s, No Pre serve, 2-Dose Series (Moderna) 01/20/2021,12/23/2020 Diptheria/Tetanus (Adult) 02/28/1979 OPV - Polio Virus Vaccine (Oral) 02/28/1979 Pneumococcal Conjugate Vacci ne, 20-valent ([id number]) 05/01/2023 Pneumococcal Polysaccharide PPV23 (Pneumovax) 10/09/2015 Seasonal [...] * Telephone Encounter - YOLIS Hui - 05/23/2023 1:27 PM EDT Apt scheduled * Telephone Encounter - YOLIS Hui - 05/22/2023 8:44 AM EDT LMOM * Telephone Encounter - Gladis Andrade LPN - 05/21/2023 10:44 AM EDT Please help pt schedule colpo * Telephone Encounter - YOLIS Wilson - 05/21/2023 10:24 AM EDT Spoke to patient, she has a referral in her chart to schedule. I was denied scheduling. Please contact at [phone] and assist. Thank you. documented in this encounter Plan of Treatment Upcoming Encounters Date Type Specialty Care Team Description 06/05/2023 Imaging Radiology 06/25/2023 Office Visit Gynecology Obstetrics Backer, ÓSCAR Leung [address] [place] [address] 07/02/2023 Imaging Radiology 11/08/2023 Office Visit Cardiology Daniel Cuevas DO [address] [place] [address] 04/07/2024 Imaging Radiology Scheduled Procedures Name Priority [...] 06/17/2019, Additional history exists Mammogram 04/27/2024 04/27/2023, 0703/2023, [...] the patient have Health Care Power of Family Caseworker? No Care Teams Production Maintenance Technician Relationship Specialty Start Date End Date Stefany Benitez MD [address] [place] [address] PCP - General Family Medicine 04/25/22 documented as of this encounter
--- OUTSIDE RECORDS SUMMARY | 2023-10-21 07:04 | External Medical Summary ---
Author Name Unknown Address Unknown Organization [id number]:[facility] [place] [address] [place] [address] Laboratory Report Ordering Provider Test Date Status LEANDER KEVIN 05/05/2023 08:08:00 Final Deficient: <20 ng/mL
Ins ufficient: 20-29 ng/mL
Recommended/Optimum:30-50 ng/mL

Vitamin D intoxication is rare. If suspicious of Vitamin D toxicity, evaluation of serum Calcium and PTH is recommended. Observation Date Value Abnormality Reference (Units ) Status 25-OH Vitamin D total 05/05/2023 08:08:00 20 >19 (ng/mL) Final Performing Location LABORATORY [facility] - [address] [place] [address]
--- OUTSIDE RECORDS SUMMARY | 2023-10-21 07:05 | External Medical Summary | Summary of Care ---
Author Name Unknown Organization [facility] Address [address] [place] [address] Phone [phone] Care Team Providers Care Office Administrative Assistant Name Role Phone Stefany Benitez MD Primary Care Provid er Reason for Visit * Reason Onset Date Comments Order Request 04/30/2023 Breast Bx Encounter Details Date Type Department Care Team Description 04/30/2023 Telephone [facility] [address] [place] [address] Stefany Benitez MD [address] [place] [address] Order Request (Breast Bx ) [...] as of this encounter (statuses as of 05/01/2023) Medications Medication Sig Dispensed Refills Start Date [...] as of this encounter (statuses as of 05/01/2023) Active Problems Problem Noted Date Dyslipidemia, goal LDL below 70 05/01/20 History [...] Miller MD on 11/02/2015 Heterozygous for prothrombin [id number] mut ation 09/30/2014 Heterozygous factor V Leiden mutation Fibroadenoma of breast 03/22/2012 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 Condyloma acuminatum Moderate COPD (chronic obstructive pulmo nary disease) Overview: Dr Peoples Gastroesophageal reflux disease without esophagitis Depression with anxiety documented as of this encounter (statuses as of 05/01/2023) Resolved Problems Problem Noted Date Resolved Date [...] as of this encounter (statuses as of 05/01/2023) Immunizations Name Administration Dates Next Due COVID-19 mRNA, LNP-s, No Pre serve, 2-Dose Series (Moderna) 01/20/2021,12/23/2020 Pneumococcal Polysaccharide PPV23 (Pneumovax) 10/09/2015 Seasonal Influenza [...] Description 05/15/2023 Imaging Radiology 05/15/2023 Imaging Radiology 07/02/2023 Imaging Radiology 11/08/2023 Office Visit Cardiology Daniel Cuevas, DO [address] [place] [address] 04/07/2024 Imaging Radiology Scheduled Orders Name Type Priority Associated Diagnoses Orde r Schedule US GUIDED BREAST BIOPSY RIGHT Medical Imaging Routine Abnormal ultrasound of breast Expected: 05/01/2023 (Approximate), Expires: 05/31/2024 Scheduled Procedures Name Priority Associated Diagnoses Date/Ti me COLONOSCOPY FLEXIBLE PROXIMA L DIAGNOSTIC Recall Encounter for screening colonoscopy Health Maintenance Due Date Last Done Comments DISCUSS TOBACCO CESSATION (REFER TO SMARTSET #1026) 1965 Hepatitis B (1 of 3 - 3-dose series) 1966 Albumin/Creatinine Ratio 1984 Alpha-1 Antitrypsin 1984 Hepatitis C Screening 1984 O2 ASSESSMENT COMPLETED IN PAST YEAR FOR COPD 1984 HPV/Co-Test 1996 Cologuard 2011 Fecal Occult Blood Test 2011 Sigmoidoscopy 2011 Zoster Vaccines (1 of 2) 2016 Pneumococcal Vaccine: Pediatrics (0 to 5 Years) and At-Risk Patients (6 to 64 Years) (2 - PCV) 10/09/2016 10/09/2015 DTaP,Tdap,and Td Vaccines (3 - Td or Tdap) 10/13/2019 10/13/2009, 07/17/2002, 02/28/1979 COVID-19 Vaccine (3 - Moderna series) 03/17/2021 01/20/2021, 12/23/2020 Depression, Most Recent Score >= 10 (will fire each visit until score < 10) 04/26/2022 04/25/2022 Cervical Cancer Screening 04/21/2023 Pap Smear 04/21/2023 04/21/2020, 0506/2017, 10/23/2013, Additional history exists Influenza Vaccine (FLU shot) (#1) 2023 07/21/2022, 07/03/2020, 06/17/2019, Additional history exists GFR 07/15/2023 07/15/2022, 08/01, 07/10/2021, Additional history exists Mammogram 04/27/2024 04/27/2023, 03/2023, 04/04/2022, Additional history exists Colonoscopy 08/03/2026 08/03/2016, 08/03/2016 Colorectal Cancer Screening 08/03/2026 *COPD SEVERITY VERIFIED BY PFT Addressed 08/01/2017 (Done elsewhere) Overridden with the intention of not completing the topic GARDASIL-HPV IMMUNIZATION SERIES Aged Out No longer [...] the patient have Health Care Power of Medical Resident? No Care Teams Office Administrative Assistant Relationship Specialty Start Date End Date Stefany Benitez MD [address] [place] [address] PCP - General Family Medicine 04/25/22 documented as of this encounter
--- OUTSIDE RECORDS SUMMARY | 2023-10-21 07:05 | External Medical Summary ---
Author Name Unknown Address Unknown Organization K01:[facility] [address] [place] [address] Laboratory Report Ordering Provider Test Date Status LEANDER KEVIN 05/01/2023 17:22:00 Final Observation Date Value Abnormality Reference (Units ) Status Human papilloma virus E6+E7 mRNA [Presence] in Cervix by PRECIOUS with probe detection 05/01/2023 17:22:00 Positive Abnormal Not Applicable Final One or more high/intermediat e-risk Human Papillomavirus (HPV E6/E7 messenger RNA) detected by nucleic acid amplification.

This assay looks for high/intermediate risk Human Papillomavirus (HPV E6/E7 messenger RNA) by nucleic acid amplification. This assay includes the qualitative detection of HPV types 16,18,31,33,35,39,45,51,52,56,58,59,66 and 68 from cervical specimens.
This assay has been FDA cleared for Thin prep collection vials.
This assay has not been approved for use as a primary screening test for HPV and should be tested in conjunction with a PAP screen.
If collected utilizing a Surepath vial, the collection and specimen preparation of this test was developed, and its performance characteristics determined by [employer]. It has not been cleared or approved by the U.S. Food and Drug Administration (FDA). The FDA has determined that such clearance or approval is not necessary.
This assay has been performed at [facility], [address] [place] [address], [place]. [address]. Performing Location [facility] [address] [place]. [facility] [address]
--- OUTSIDE RECORDS SUMMARY | 2023-10-21 07:05 | External Medical Summary | Summary of Care ---
Author Name Unknown Organization [facility] Address [address] [place] [address] Phone [phone] Care Team Providers Care Exchange Administrator Name Role Phone Stefany Benitez MD Primary Care Provid er Reason for Visit * Reason Onset Date Comments Health Maintenance 04/27/2023 Encounter Details Date Type Department Care Team Description 04/27/[address] [facility] [address] [place] [address] Stefany Benitez MD [address] [place] [address] Health Maintenance Allergies Active Allergy Reactions Severity Noted Date [...] as of this encounter (statuses as of 04/27/2023) Medications Medication Sig Dispensed Refills Start Date [...] ONCE DAILY 30 Tablet 11 08/22/2022 Active Sertraline HCl 50 MG Oral Tablet (Zoloft) Take 1 Tablet by mouth in the morning. 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 Heterozygous factor V Leiden mutation Fibroadenoma of breast 03/22/2012 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 Condyloma acuminatum Moderate COPD (chronic obstructive pulmo nary disease) Overview: Dr Peoples Gastroesophageal reflux disease without esophagitis Depression with anxiety documented as of this encounter (statuses as of 04/27/2023) Resolved Problems Problem Noted Date Resolved Date [...] as of this encounter (statuses as of 04/27/2023) Immunizations Name Administration Dates Next Due COVID-19 [...] encounter Miscellaneous Notes * Telephone Encounter - Zuleyka Newton LPN - 04/27/2023 1:53 PM EDT Care Gaps Comprehensive Care Outreach Last Office/Telemedicine Visit: 04/25/2022 (in office), Visit date not found (telemedicine) Next Office Visit: 05/01/2023 Hemoglobin AIC Results: Lab Results Component Value Date/Time HEMOGLOBIN A1C - [facility] 5.5 07/15/2022 08:35 AM HEMOGLOBIN A1C - [facility] 5.9 (H) 09/28/2020 08:19 AM Reviewed Health Maintenance below: Health Maintenance Topic Date Due Hepatitis B (1 of 3 - 3-dose series) Never done DISCUSS TOBACCO CESSATION (REFER TO SMARTSET #3295) Never done Albumin/Creatinine Ratio Never done Alpha-1 Antitrypsin Never done Hepatitis C Screening Never done Zoster Vaccines (1 of 2) Never done Pneumococcal Vaccine: Pediatrics (0 to 5 Years) and At-Risk Patients (6 to 64 Years) (2 - PCV) 10/09/2016 DTaP,Tdap,and Td Vaccines (3 - Td or Tdap) 10/13/2019 COVID-19 Vaccine (3 - Moderna series) 03/17/2021 Depression, Most Recent Score >= 10 (will fire each visit until score < 10) 04/26/2022 Cervical Cancer Screening 04/21/2023 O2 ASSESSMENT COMPLETED IN PAST YEAR FOR COPD 04/25/2023 Influenza Vaccine (FLU shot) (1) 06/01/2023 GFR 07/15/2023 Urine/labs Care Gap Outreach Action Taken: Unable to reach documented in this encounter Plan of Treatment Upcoming Encounters Date Type Specialty Care Team Description 05/01/2023 Office Visit Family Medicine Stefany Benitez MD [address] [place] [address] 05/15/2023 Imaging Radiology 05/15/2023 Imaging Radiology 07/02/2023 Imaging Radiology 11/08/2023 Office Visit Cardiology Daniel Cuevas, DO [address] [place] [address] 04/07/2024 Imaging Radiology Scheduled Procedures Name Priority Associated Diagnoses Date/Ti me COLONOSCOPY FLEXIBLE PROXIMA L DIAGNOSTIC Recall Encounter for screening colonoscopy Health Maintenance Due Date Last Done Comments DISCUSS TOBACCO CESSATION (REFER TO SMARTSET #1313) 1965 Hepatitis B (1 of 3 - [...] Cancer Screening 04/21/2023 Pap Smear 04/21/2023 04/21/2020, 05/0 06/2017, 10/23/2013, Additional history exists O2 ASSESSMENT COMPLETED IN PAST YEAR FOR COPD 04/25/2023 Influenza Vaccine (FLU shot) (#1) 2023 07/21/2022, 07/03/2020, 06/17/2019, Additional history exists GFR 07/15/2023 07/15/2022, 08/01, 07/10/2021, Additional history exists Mammogram 04/05/2024 04/05/2023, 0701/2022, 03/31/2021, Additional history exists Colonoscopy 08/03/2026 08/03/2016, 08/03/2016 [...] the patient have Health Care Power of Rattle Leak And Squeak Repairer? No Care Teams Exchange Administrator Relationship Specialty Start Date End Date Stefany Benitez MD [address] [place] [address] PCP - General Family Medicine 04/25/22 documented as of this encounter
--- OUTSIDE RECORDS SUMMARY | 2023-10-21 07:05 | External Medical Summary | Summary of Care ---
Author Name Unknown Organization [facility] Address [address] [place] [address] Phone [phone] Care Team Providers Care [employer] Agent Name Role Phone Stefany Benitez MD Primary Care Provid er Reason for Visit * Reason Comments Re-Check Yearly visit Encounter Details Date Type Department Care Team Description 05/01/2023 Office Visit [facility] [address] [place] [address] Stefany Benitez MD [address] [place] [address] Dyslipidemia, goal LDL below 70*; Elevated glucose; Hypertension goal BP (blood pressure) < 140/90; Postmenopausal status, age-related; Cigarette smoker; Cervical cancer screening; Need for pneumococcal vaccination; Hypovitaminosis D Allergies Active Allergy Reactions Severity [...] by mouth in the morning. 0 Active Sertraline HCl 50 MG Oral Tablet Take 1 Tablet by mouth in the morning. 30 Tablet 11 01/01/2023 3 Discontinue d(Adverse reaction) documented as of this encounter (statuses as of 05/01/2023) Active Problems Problem Noted Date Postmenopausal status, [...] Miller MD on 11/02/2015 Heterozygous for prothrombin [id number] mut ation 09/30/2014 Heterozygous factor V Leiden [...] (Moderna) 01/20/2021,12/23/2020 Pneumococcal Conjugate Vacci ne, 20-valent ([id number]) 05/01/2023 Pneumococcal Polysaccharide PPV23 (Pneumovax) 10/09/2015 Seasonal [...] 1 984 - 04/24/2023 Smokeless Tobacco: Never Tobacco Cessation:Counseling Given: Not [...] Sign Reading Time Taken Comments Blood Pressure 138/64 05/01/2023 3:59 PM EDT Pulse 70 05/01/2023 3:59 PM EDT Temperature 36.5 C (97.7 F) 05/01/2023 3:59 PM ED T Respiratory Rate 16 05/01/2023 3:59 PM EDT Oxygen Saturation 92% 05/01/2023 3:59 PM EDT Inhaled Oxygen Concentration - - Weight 48.5 kg (106 lb 14.4 oz) 05/01/2023 3:59 PM EDT Height 167.6 cm (5' 6") 05/01/2023 3:59 PM EDT Body Mass Index 17.25 05/01/2023 3:59 PM EDT documented in this [...] as of this encounter Progress Notes * Chica Perez, ION - 05/01/2023 5:06 PM EDT Pre-Administration Time Out Procedure Performed: Yes Patient Identified (Ask Name/Date of ): Yes Does the patient have a fever greater than 101 degrees today? No Patient allergic to latex? No Has the patient ever fainted after receiving an injection? No VFC Stock: No Immunization(s) verified: Yes, Immunization Name: Prevnar 20 (PCV20), VIS Sheet(s) given: Yes Verified Side and Site: Yes Verified Shot(s) with Parent(s)/Patient: Yes * Stefany Benitez MD - 05/01/2023 4:28 PM EDT ASSESSMENT / PLAN: Melissa Carpenter is a 58 year old female with PMHx H/o left lung neoplasm / s/p lobectomy / COPD / 39 pack year history / h/o tobacco use in early remission / HTN / MDD / anxiety / bipolar / HLD - here for recheck Due for pap H/o abnormal paps Performed today without complications HTN Well controlled today Follows with cardiology Continue losartan, carvedilol, lasix, amlodipine H/o hyponatremia - improved since DC hctz H/o lung ca / s/p lobectomy / Moderate COPD No acute issues Follows with Pulm, CT surg Continue incruse ellipta and arnuity / albuterol Overdue for Pulm return visit - urged her to schedule venus MDD / Anxiety / Bipolar affective disorder Follows with [facility]. On paxil, abilify and klonopin HLD Update labs Cont statin Former tobacco use Quit 5 days ago 39 pack year history Commended for quitting Postmenopausal Recommend screen for osteoporosis Screenings/anticipatory guidance reviewed include if applicable nutrition, family planning/contraception, physical activity, healthy weight, injury prevention, misuse of tobacco, alcohol and drugs, sexual behavior and STDs, dental health, mental health, immunizations, age appropriate screenings: next colonoscopy 2025 (10 yr recall) / cervical ca screening - pap performed today / next mammo - recent h/o abnormal - biopsy scheduled for 05/15 Due for PCV 20 - she is agreeable, given today, tolerated well. If applicable Starting age 19: Screening for Cholesterol every five years beginning at 20 years of age, chlamydiafor sexually active women under 25 years of age, HIV Starting age 40: Screening for Cholesterol, diabetes, colorectal cancer beginning at 50 years, HIV Dyslipidemia, goal LDL below 70 (Primary) - LIPID PANEL WITH DIRECT LDL IF TG IS HIGH; Future; Expected date: 05/01/2023 - COMPREHENSIVE METABOLIC PANEL; Future; Expected date: 05/01/2023 Elevated glucose - HEMOGLOBIN A1C; Future; Expected date: 05/01/2023 Hypertension goal BP (blood pressure) < 140/90 - COMPREHENSIVE METABOLIC PANEL; Future; Expected date: 05/01/2023 - ALBUMIN / CREATININE RATIO, URINE; Future; Expected date: 05/01/2023 Postmenopausal status, age-related - DEXA SCAN/BONE MINERAL AXIAL Cigarette smoker - DEXA SCAN/BONE MINERAL AXIAL Cervical cancer screening - BUNDLE HELPER PAP SCREEN Need for pneumococcal vaccination - PNEUMOCOCCAL VACC, PCV20, IM ([id number]) Hypovitaminosis D - 25-HYDROXY VITAMIN D; Future; Expected date: 05/01/2023 Follow Up: Return in 6 months (on 11/01/2023) for Fasting Labs Soon. | For: Fasting Labs Soon If needed, prefers contact by: Ok to leave message on phone: SUBJECTIVE: Nursing Notes: Pallavi Molina [place] 05/01/23 1600 Signed Melissa Carpenter is a 58 year old female who presents today for Chief Complaint Patient presents with Re-Check Yearly visit HPI: Melissa Carpenter is a 58 year old female. Here for recheck. Over all feels well Taking care of her mother Next pap 2022 2019 (HPV not checked) / 2016 / 2013 / 2011 / 2010 / 2009 normal cytology only Reviewed sources 1-CT surg - 07/2022 - no evid of disease 2- Cardio - 11/2022 - cont current regimen Patient Active Problem List Diagnosis Code Human papilloma virus B97.7 Condyloma acuminatum A63.0 Mammary duct ectasia N60.49 Fibroadenoma of breast D24.9 Heterozygous for prothrombin [id number] mutation (HCC) D68.52 Heterozygous factor V Leiden [...] times a day as needed for Anxiety. 60Tab 0 Aspirin 81 MG Tablet Take 1 Tab by mouth daily. 34 Tab 5 ARIPiprazole (ABILIFY) 5 MG Tablet Take 1 Tab by mouth daily. 30 Tab 0 Zoster Vac Recomb Adjuvanted 50 MCG/0.5ML Intramuscular [...] BY MOUTH ONCE DAILY 30 Tablet 11 Furosemide 20 MG Oral Tablet (Lasix) TAKE 1 TABLET BY MOUTH ONCE DAILY 90 Tablet 3 PARoxetine HCl 40 MG Oral Tablet (pAXil) Take 1 Tablet by mouth in the morning. albuterol sulfate (PROVENTIL) (2.5 MG/3ML) 0.083% nebulizer solution Inhale 1 Vial via nebulizer every 4 hours as needed for Wheezing. (Patient not taking: Reported on 12/06/2022) 120 Vial 11 Cetirizine HCl 10 MG Capsule Take 10 mg by mouth daily. (Patient not taking: Reported on 12/06/2022) No current facility-administered medications for this visit. OBJECTIVE: BP 138/64 (BP Site: Left Arm, BP Position: Sitting, BP Cuff Size: Regular) | Pulse 70 | Temp 36.5 C (97.7 F) (Temporal Artery) | Resp 16 | Ht 1.676 m (5' 6") | Wt 48.5 kg (106 lb 14.4 oz) | LMP 04/06/2020 | SpO2 92% | BMI 17.25 kg/m | BSA 1.5 m Vitals reviewed and is normotensive / afebrile / and not tachycardic General: No acute distress. Neuro: Alert Pleasant & interactive. Respiratory: Good inspiratory effort, no labored breathing. Left lobe with some wheeze but otherwise clear, no rhonchi. CV: RRR no M R G : Female External Genitalia: normal appearance and hair distribution wnl. No suspicious lesions. Vagina: Normal amount and color of discharge, no dryness, no prolapse/cystocele/rectocele visualized. Cervix: normal appearance, no suspicious lesions. No cervical motion tenderness. Urethra: normal appearance. HEENT: Conjunctivae appear clear. No swelling noted face or lips. Skin: No rash visible on exposed skin areas, normal coloration & appears dry. Psych: Normal affect. Fluent speech. I spent a total of 40-54 minutes (exact time 45 mins) on the date of service in preparation, delivery, and documentation of the care provided to Melissa Carpenter excluding any time spent in the performance of separately billed services. Stefany Benitez MD [address] [address] There are no Patient Instructions on file for this visit. documented in this encounter Nursing Notes * YING Ordoñez - 05/01/2023 3:58 PM EDT Melissa Carpenter is a 58 year old female who presents today for Chief Complaint Patient presents with Re-Check Yearly visit documented in this encounter Plan of Treatment Upcoming Encounters Date Type Specialty Care Team Description 05/15/2023 Imaging Radiology 05/15/2023 Imaging Radiology 06/05/2023 Imaging Radiology 07/02/2023 Imaging Radiology 11/08/2023 Office Visit Cardiology Daniel Cuevas, DO [address] [place] [address] 04/07/2024 Imaging Radiology Pending Results Name Type Priority Associated Diagnoses Date /Time BUNDLE HELPER PAP SCREEN Pathology Routine Cervical cancer screening 05/01/2023 5:22 PM EDT Scheduled Orders Name Type Priority Associated Diagnoses Orde r Schedule LIPID PANEL WITH DIRECT LDL IF TG IS HIGH Lab Routine Dyslipidemia, goal LDL below 70 Expected: 05/01/2023, Expires: 05/01/2024 HEMOGLOBIN A1C Lab Routine Elevated glucose Expected: 05/01/2023 (Approximate), Expires: 04/30/2024 COMPREHENSIVE METABOLIC PANEL Lab Routine Dyslipidemia, goal LDL below 70 Hypertension goal BP (blood pressure) < 140/90 Expected: 05/01/2023 (Approximate), Expires: 04/30/2024 ALBUMIN / CREATININE RATIO, URINE Lab Routine Hypertension goal BP (blood pressure) < 140/90 Expected: 05/01/2023 (Approximate), Expires: 04/30/2024 DEXA SCAN/BONE MINERAL AXIAL Medical Imaging Routine Postmenopausal status, age-related Cigarette smoker Ordered: 05/01/2023 25-HYDROXY VITAMIN D Lab Routine Hypovitaminosis D Expected: 05/01/2023 (Approximate), Expires: 04/30/2024 Scheduled Procedures Name Priority Associated Diagnoses Date/Ti [...] Cancer Screening 04/21/2023 Pap Smear 04/21/2023 04/21/2020, 050 06/2017, 10/23/2013, Additional history exists Influenza Vaccine [...] Visit Diagnoses Diagnosis Dyslipidemia, goal LDL below 70- Primary Other and unspecified hyperlipidemia Elevated glucose Other abnormal glucose Hypertension goal BP (blood pressure) < 140/90 Unspecified essential hypertension Postmenopausal status, age-related Asymptomatic postmenopausal status (age-related) (natural) Cigarette smoker Tobacco use disorder Cervical cancer screening Screening for malignant neoplasm of the cervix Need for pneumococcal vaccination Need for prophylactic vaccination against streptococcus pneumoniae (pneumococcus) Hypovitaminosis D Unspecified vitamin D deficiency documented [...] the patient have Health Care Power of Slasher Sawyer? No Care Teams [employer] Agent Relationship Specialty Start Date End Date Stefany Benitez MD [address] [place], [place] [id number] PCP - General Family Medicine 04/25/22 documented as of this encounter
--- OUTSIDE RECORDS SUMMARY | 2023-10-21 07:05 | External Medical Summary | Summary of Care ---
Author Name Unknown Organization [facility] Address [address] [place] [address] Phone [phone] Care Team Providers Care Aircraft Powertrain Repairer Name Role Phone Stefany Benitez MD Primary Care Provid er Reason for Visit * Reason Comments Re-Check Yearly visit Encounter Details Date Type Department Care Team Description 05/01/[address] [facility] [address] [place] [address] Stefany Benitez MD [address] [place] [address] Dyslipidemia, goal LDL below 70*; [...] Miller MD on 11/02/2015 Heterozygous for prothrombin [id number] mut ation 09/30/2014 Heterozygous factor V Leiden [...] (Moderna) 01/20/2021,12/23/2020 Pneumococcal Conjugate Vacci ne, 20-valent ([id number]) 05/01/2023 Pneumococcal Polysaccharide PPV23 (Pneumovax) 10/09/2015 Seasonal [...] SCAN/BONE MINERAL AXIAL Cervical cancer screening - SEAM CLOSER PAP SCREEN Need for pneumococcal vaccination - PNEUMOCOCCAL VACC, PCV20, IM ([id number]) Hypovitaminosis D - 25-HYDROXY VITAMIN D; Future; Expected date: 05/01/2023 Follow Up: Return in 6 months (on 11/01/2023) for Fasting Labs Soon. | For: Fasting Labs Soon If needed, prefers contact by: Ok to leave message on phone: SUBJECTIVE: Nursing Notes: Pallavi Molina [facility] 05/01/23 1600 Signed Melissa Carpenter is a [...] Fibroadenoma of breast D24.9 Heterozygous for prothrombin [id number] mutation (HCC) D68.52 Heterozygous factor V Leiden [...] of separately billed services. Stefany Benitez MD [address] [address] There are no Patient Instructions on file for this visit. documented in this encounter Nursing Notes * YING Ordoñez - 05/01/2023 3:58 PM EDT Melissa Carpenter is a 58 year old female who presents today for Chief Complaint Patient presents with Re-Check Yearly visit documented in this encounter Plan of Treatment Upcoming Encounters Date Type Specialty Care Team Description 05/05/2023 Laboratory Laboratory [facility] [address] [place] [address] 05/15/2023 Imaging Radiology 05/15/2023 Imaging Radiology 06/05/2023 Imaging Radiology 07/02/2023 Imaging Radiology 11/08/2023 Office Visit Cardiology Daniel Cuevas, [address] [place] [address] 04/07/2024 Imaging Radiology Pending Results Name Type Priority Associated Diagnoses Date /Time SEAM CLOSER PAP SCREEN Pathology Routine Cervical cancer screening [...] the patient have Health Care Power of Painter Apprentice? No Care Teams Aircraft Powertrain Repairer Relationship Specialty Start Date End Date Stefany Benitez MD [address] [place] [address] PCP - General Family Medicine 04/25/22 documented as of this encounter
[2023-10-21] MEDS ORDERED: methylPREDNISolone 125 MG/2 ML VIAL IV STA (07:10)
[2023-10-21] MEDS ORDERED: ALBUT/IPRATROP 3MG/0.5MG NEB 3 ML VIAL NEB ONE (07:10)
--- NOTE | 2023-10-21 07:17 | Emergency Department Note ---
Impression & Plan Dyspnea, Hypoxia, COPD exacerbation, Pneumonia ED Provider Note ED Provider Note NAME: MERLE JENSEN AGE:58 SEX: Female : 1965 ARRIVES VIA: Private vehicle INFORMANT: Patient ED PROVIDER(s): Joann Brothers DO CHIEF COMPLAINT: Shortness of breath HPI: This is a 58-year-old female who presents emergency department due to increased difficulty breathing. Patient states she began feeling sick earlier in the week and on Sunday called her family doctor to get a "emergency kit". She states she started this yesterday which included a steroid and an antibiotic. She states these have helped her in the past. She does not use steroids chronically. She has been using her albuterol at home with minimal improvement. She states she had felt earlier in the week as though she was developing a cold. Patient has previously been hospitalized for difficulty breathing. She does not wear home oxygen. Patient placed urgently in a room by staff as her room air sat in triage was in the 70s. PAST MEDICAL HISTORY:See Below PAST SURGICAL HISTORY:See Below FAMILY HISTORY:See Below SOCIAL HISTORY:See Below HOME MEDICATIONS:See Below ALLERGIES:See Below VITALS:See Below PHYSICAL EXAMINATION: GENERAL: alert, unwell appearing, thin body habitus, moderate distress, non- toxic EYE EXAM: normal conjunctiva, PERRL and EOM's grossly intact OROPHARYNX: no exudate, no erythema, lips, buccal mucosa, and tongue normal and mucous membranes are moist NECK: supple, no nuchal rigidity, no adenopathy, non-tender LUNGS: Decreased bilaterally to auscultation. Normal chest wall mechanics, no r/r, scattered wheezes noted bilaterally HEART: no murmurs, S1 normal and S2 normal ABDOMEN: abdomen soft, non-tender, normo-active bowel sounds, no masses, no rebound or guarding. BACK: Back is symmetrical on inspection and there is no deformity, no midline tenderness, no CVA tenderness. SKIN: no rashes, petechiae, orbruising UPPER EXTREMITIES: upper extremities are grossly normal. FROM, nml pulses b/l. LOWER EXTREMITIES: No pitting edema. FROM, nml pulses b/l. NEURO EXAM: Normal sensorium, cranial nerves II-XII grossly intact, normal speech, no facial droop,nogross weakness of arms, no gross weakness of legs. Gross sensation intact. No ataxia. Vital Signs: reviewed and remarkable Differential Diagnosis: pneumonia, bronchitis, COPD/Asthma exacerbation, pneumothorax, pulmonary embolism, congestive heart failure, acute coronary syndrome, as well as others were considered MEDICAL DECISION MAKING: This is a 58 yo female with a hx of COPD who presents with acute respiratory distress after several days of worsening URI symptoms. She was noted have increased WOB in triage and was hypoxic in the 70s. She was immediately brought to a room and placed on an oxymask with improvement in her oxygenation but not in her WOB. Labs drawn and sent, IV established, EKG and CXR performed and interpreted at bedside, and patient placed on telemetry. She was started on a continuous neb and given IV solumedrol. She had just started prednisone/antibiotic yesterday. CXR with evidence of pna. She was given IV rocephin additionally. She had improvement with nebs and medication here but was still requiring oxygen. Magnesium added. She was given gentle IVF hydration initially due to concern for dehydration or evolving sepsis after finding of PNA on cxr. As wheezing improved following neb, there were fine rales noted. Case discussed with hospitalist due to concern for hypoxia, pna, and copd exacerbation. We discussed additional CT imaging based on hx which was ordered. Consultation(s): 914: Discussed with Dr. Pineda, [facility] hospitalist team, for additional evaluation and mgmt. ER Treatment Provided: See below Diagnostics Interpreted By Me: -ECG: Normal sinus at 82, normal axis, normal intervals, no acute ST/T wave changes -Cardiac Monitoring: An order was placed for continuous cardiac monitoring. The monitor shows a rate of 80 with normal sinus rhythm. -Laboratory studies: As stated above and show below. -Imaging studies: X-ray Chest: A single view study of the chest was reviewed and was negative for cardiomegaly, pulmonary edema, or wide mediastinum. Right sided infiltrate, left pleural effusion. Triage Nursing Note Reviewed Prior/Outside Records Reviewed Critical Care: Critical care of 44 min performed to assess and manage high likelihood of life- threatening acute hypoxic respiratory failure, involving labs and imaging performed with assessment to evaluate acute hypoxic respiratory failure diagnosis with frequent reassessment. This time includes bedside time, treatment discussions with patient/family/consultants, documentation time and excludes procedure time. 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 Malignant neoplasm of upper lobe, left bronchus or lung Pulmonary emphysema Pulmonary nodule Arthritis Allergic rhinitis Lumbar stenosis (09/25/14) Surgical History History of D&C History of lumbar surgery H/O breast surgery H/O splenectomy Family History Father Hypertension Mother Lung cancer Other Breast cancer COPD (chronic obstructive pulmonary disease) Diabetes Social History Smoking Status: Current every day smoker Tobacco Type: Cigarettes Cigarettes Per Day: 3; Tobacco Cessation Education Requested by Patient: No Hx Alcohol Use: Yes Hx Substance Use: No Preferred Language: Vietnamese Communication Ability: Effective [employer] Installation [employer] Required: No Beliefs That Will Affect Care: None marital status: Current Living Situation: Significant Other current occupational status: disabled Feels Safe at Home: Yes Safety Concerns: Feels Safe At This Time Assistive Devices: Denture - Lower and Glasses Allergies Allergies Allergy/AdvReac Type Severity Reaction Status Date / Time Bactrim Allergy Intermediate HIVES Verified 07/26/15 07:15 Sulfa (Sulfonamide Allergy Intermediate BACTRIM- Verified 07/06/23 11:10 Antibiotics) HIVES sulfamethoxazole Allergy Intermediate HIVES Verified 07/06/23 11:10 trimethoprim Allergy Intermediate HIVES Verified 07/06/23 11:10 erythromycin base Allergy Unknown Verified 07/06/23 11:10 metaxalone Allergy Unknown Verified 07/06/23 11:10 morphine Allergy Unknown . Verified 07/06/23 11:10 neomycin Allergy Unknown Verified 07/06/23 11:10 Quinolones Allergy Unknown Verified 07/06/23 11:10 tetracycline Allergy Unknown Verified 07/06/23 11:10 amoxicillin [From Augmentin] Allergy Verified 07/06/23 11:10 clavulanic acid Allergy Verified 07/06/23 11:10 [From Augmentin] umeclidinium Allergy Verified 07/06/23 11:10 [From Anoro Ellipta] vilanterol Allergy Verified 07/06/23 11:10 [From Anoro Ellipta] moxifloxacin AdvReac Unknown hives Verified 07/06/23 11:10 Home Meds Home Medications Medication Instructions Recorded Confirmed aripiprazole 5 mg tablet (Abilify) 5 mg PO DAILY 12/03/19 10/21/23 aspirin 81 mg tablet 81 mg PO DAILY 02/04/20 10/21/23 cetirizine 10 mg tablet 10 mg PO DAILY 02/04/20 10/21/23 clonazepam 0.5 mg tablet 0.5 mg PO BID PRN Anxiety 02/04/20 10/21/23 amlodipine 10 mg tablet 10 mg PO DAILY 08/01/21 10/21/23 losartan 50 mg tablet 50 mg PO BID 08/01/21 10/21/23 atorvastatin 20 mg tablet 20 mg PO DAILY 06/11/23 10/21/23 carvedilol 25 mg tablet 25 mg PO BID 06/11/23 10/21/23 paroxetine HCl 40 mg tablet 40 mg PO DAILY 06/11/23 10/21/23 acetaminophen 650 mg 650 mg PO Q8H PRN Pain 10/21/23 10/21/23 tablet,extended release alendronate 70 mg tablet 70 mg PO WK 10/21/23 10/21/23 ergocalciferol (vitamin D2) 1,250 1,250 mcg PO WK 10/21/23 10/21/23 mcg (50,000 unit) capsule (Vitamin D2) Previous Rx's Medication Instructions Recorded albuterol sulfate 90 mcg/actuation 2 puff inhalation Q4H PRN 02/20/22 aerosol inhaler (Ventolin HFA) shortness of breath ,coughing or wheezing #18 grams albuterol sulfate 2.5 mg/3 mL 2.5 mg (3 mL) inhalation Q4H PRN 06/15/23 (0.083 %) solution for nebulization shortness of breath or wheezing #180 mL benzonatate 100 mg capsule 100 mg PO TID PRN cough #20 caps 06/15/23 furosemide 20 mg tablet 20 mg PO BID #60 tabs 06/15/23 hydralazine 50 mg tablet 50 mg PO TID #90 tabs 06/15/23 terazosin 1 mg capsule 2 mg (2 x 1 mg) PO HS #30 caps 06/15/23 umeclidinium 62.5 mcg/actuation 1 inh inhalation DAILY #90 puffs 07/10/23 blister powder for inhalation (Incruse Ellipta) fluticasone propionate 50 1 spray intranasal BID #18.2 mL 10/19/23 mcg/actuation nasal spray,suspension (Flonase Allergy Relief) Results & Data (ED) Vital Signs Vital Signs - 24 hr 10/21/23 07:05 10/21/23 07:09 10/21/23 07:22 Temperature 36.5 C Temperature Source Oral Pulse Rate 91 H Pulse Rate [Apical] 83 Pulse Rate from SpO2 Sensor Pulse Rhythm Regular Respiratory Rate 32 H 24 Respiratory Effort / Characteristics Short of Breath Spontaneous Short of Breath Blood Pressure 188/92 H Blood Pressure Mean 124 Pulse Oximetry 73 L 99 98 Oxygen Delivery Method Room Air Oxymask Oxymask Oxygen Flow Rate 10 10 Sepsis Recent Fever Within 48 Hours No Sepsis New/Unexplained Change in Mental Status No Sepsis Action Taken by Nursing No Action Required 10/21/23 07:28 10/21/23 08:11 10/21/23 08:18 Temperature Temperature Source Pulse Rate 78 92 H Pulse Rate [Apical] Pulse Rate from SpO2 Sensor 77 Pulse Rhythm Respiratory Rate 27 H Respiratory Effort / Characteristics Spontaneous Short of Breath Blood Pressure 163/81 H Blood Pressure Mean 108 Pulse Oximetry 96 Oxygen Delivery Method Oxymask Nebulizer Oxygen Flow Rate 10 Sepsis Recent Fever Within 48 Hours Sepsis New/Unexplained Change in Mental Status Sepsis Action Taken by Nursing 10/21/23 09:00 Temperature Temperature Source Pulse Rate 77 Pulse Rate [Apical] Pulse Rate from SpO2 Sensor 78 Pulse Rhythm Respiratory Rate 23 Respiratory Effort / Characteristics Blood Pressure 154/75 H Blood Pressure Mean 101 Pulse Oximetry 91 Oxygen Delivery Method Oxymask Oxygen Flow Rate 10 Sepsis Recent Fever Within 48 Hours Sepsis New/Unexplained Change in Mental Status Sepsis Action Taken by Nursing Laboratory Data 10/21/23 07:15 10/21/23 07:15 Lab Results 10/21/23 10/21/23 10/21/23 Range/Units 07:15 08:20 09:30 WBC 20.94 H (4.8-10.8) K/ul RBC 3.99 L (4.20-5.40) M/uL Hgb 11.8 L (12.0-16.0) g/dl Hct 35.3 L (37.0-47.0) % MCV 88.5 (80.0-100.0) fL MCH 29.6 (25.0-34.0) pg MCHC 33.4 (32.0-36.0) g/dL RDW Std Deviation 47.2 H (36.4-46.3) fL RDW Coeff of Shanna 14.6 H (11.5-14.5) % Plt Count 231 (130-400) K/uL MPV 10.9 (9.4-12.4) fL Immature Gran % (Auto) 0.6 % Neut % (Auto) 77.8 % Lymph % (Auto) 14.1 % Lipscomb % (Auto) 6.7 % Eos % (Auto) 0.4 % Baso % (Auto) 0.4 % Neut # (Auto) 16.28 H (1.40-6.50) K/uL Lymph # (Auto) 2.95 (1.20-3.40) K/uL Lipscomb # (Auto) 1.41 H (0.11-0.59) K/uL Eos # (Auto) 0.09 (0.00-0.50) K/uL Baso # (Auto) 0.08 (0.00-0.20) K/uL Immature Gran # (Auto) 0.13 (0.01-0.20) K/uL PT 11.0 (9.0-12.0) Seconds INR 1.0 (0.9-1.1) Sodium 131 L (136-145) mmol/L Potassium 4.0 (3.5-5.1) mmol/L Chloride 98 (98-107) mmol/L Carbon Dioxide 26 (21-32) mmol/L Anion Gap 7 (3-11) BUN 23 (6-23) mg/dl Creatinine 1.25 H (0.6-1.2) mg/dl Est Cr Clr Drug Dosing 39.3 ml/min Est GFR ( Amer) 55.3 ml/min Est GFR (Non-Af Amer) 47.7 ml/min BUN/Creatinine Ratio 18.4 (10-20) Glucose 134 H (70-99(Fasting)) mg/dl Osmolality 279 L (280-300) mOsm/kg Calcium 8.9 (8.6-10.3) mg/dl Magnesium 1.7 (1.7-2.4) mg/dl Total Bilirubin 0.5 (0.2-1.0) mg/dl AST 38 (13-39) U/L ALT 37 (7-52) U/L Alkaline Phosphatase 94 (34-104) U/L Troponin I High Sens 19.7 H (0-14) pg/ml B-Natriuretic Peptide 658 H (0-100) pg/ml Total Protein 7.2 (6.0-8.3) gm/dl Albumin 4.4 (3.4-5.0) gm/dl Globulin 2.8 (2.5-4.0) gm/dl Albumin/Globulin Ratio 1.6 (0.9-2) Lipase 28 (11-82) U/L Procalcitonin < 0.05 (0-0.5) ng/ml TSH 1.583 (0.300-4.500) uIu/ml Adenovirus (PCR) Not Detected (NotDetected) B. pertussis DNA (PCR) Not Detected (NotDetected) B.parapertussis DNA PCR Not Detected (NotDetected) C. pneumoniae DNA (PCR) Not Detected (NotDetected) Coronavirus OC43 (PCR) Not Detected (NotDetected) Coronavirus HKU1 (PCR) Not Detected (NotDetected) Coronavirus 229E (PCR) Not Detected (NotDetected) SARS-CoV-2 (PCR) Not Detected (NotDetected) Coronavirus NL63 (PCR) Not Detected (NotDetected) Human Metapneumovir PCR Not Detected (NotDetected) Influenza Type A (PCR) Not Detected (NotDetected) Influenza Type B (PCR) Not Detected (NotDetected) M. pneumoniae (PCR) Not Detected (NotDetected) Parainfluenza 1 (PCR) Not Detected (NotDetected) Parainfluenza 2 (PCR) Not Detected (NotDetected) Parainfluenza 3 (PCR) Not Detected (NotDetected) Parainfluenza 4 (PCR) Not Detected (NotDetected) RSV (PCR) Not Detected (NotDetected) Entero/Rhino (PCR) Not Detected (NotDetected) Administered Medications Albuterol (Albut/Ipratrop 3mg/0.5mg Neb 3 Ml Vial) 3 ml NEB QIDR [facility]; Protocol Stop: 11/20/23 14:59 Last Admin: 10/22/23 07:16 Dose: 3 ml Documented By: Admin: 10/21/23 19:48 Dose: 3 ml Documented By: Admin: 10/21/23 13:59 Dose: 3 ml Documented By: TRENA Amlodipine Besylate (Amlodipine Besylate 5 Mg Tab) 10 mg PO DAILY [facility] Stop: 11/20/23 11:52 Last Admin: 10/22/23 08:36 Dose: 10 mg Documented By: Admin: 10/21/23 13:18 Dose: 10 mg Documented By: SONALI Aripiprazole (Aripiprazole 5 Mg Tab) 5 mg PO DAILY [facility] Stop: 11/21/23 08:59 Last Admin: 10/22/23 08:36 Dose: 5 mg Documented By: Aspirin (Aspirin 81 Mg Ectab) 81 mg PO DAILY [facility] Stop: 11/21/23 08:59 Last Admin: 10/22/23 08:36 Dose: 81 mg Documented By: Atorvastatin Calcium (Atorvastatin 20 Mg Tab) 20 mg PO DAILY [facility] Stop: 11/21/23 08:59 Last Admin: 10/22/23 08:36 Dose: 20 mg Documented By: Benzonatate (Benzonatate 100 Mg Capsule) 100 mg PO TID PRN PRN Reason: cough Stop: 11/20/23 11:52 Last Admin: 10/21/23 20:17 Dose: 100 mg Documented By: CORNEL Carvedilol (Carvedilol 25 Mg Tab) 25 mg PO BID [facility] Stop: 11/20/23 11:52 Last Admin: 10/22/23 08:35 Dose: 25 mg Documented By: Admin: 10/21/23 20:13 Dose: 25 mg Documented By: Admin: 10/21/23 13:18 Dose: 25 mg Documented By: SONALI Cetirizine HCl (Cetirizine Hcl 10 Mg Tablet) 10 mg PO DAILY [facility] Stop: 11/20/23 11:52 Last Admin: 10/22/23 08:35 Dose: 10 mg Documented By: Admin: 10/21/23 13:19 Dose: 10 mg Documented By: SONALI Clonazepam (Clonazepam 0.5 Mg Tab) 0.5 mg PO BID PRN PRN Reason: Anxiety Stop: 11/20/23 11:52 Last Admin: 10/21/23 20:17 Dose: 0.5 mg Documented By: CORNEL Furosemide (Furosemide 20 Mg Tab) 20 mg PO BID17 [facility] Stop: 11/20/23 16:59 Last Admin: 10/22/23 08:35 Dose: 20 mg Documented By: Admin: 10/21/23 16:15 Dose: 20 mg Documented By: YUMIKO Guaifenesin (Guaifenesin 600 Mg Tabcr) 1,200 mg PO Q12 [facility] Stop: 11/20/23 11:52 Last Admin: 10/22/23 08:35 Dose: 1,200 mg Documented By: Admin: 10/21/23 20:10 Dose: 1,200 mg Documented By: Admin: 10/21/23 13:19 Dose: 1,200 mg Documented By: SONALI Heparin Sodium (Porcine) (Heparin Sod 5,000 Unit/0.5 Ml Vial) 5,000 units SQ Q8 [facility] Stop: 11/20/23 13:59 Last Admin: 10/22/23 06:09 Dose: 5,000 units Documented By: Admin: 10/21/23 21:36 Dose: 5,000 units Documented By: Admin: 10/21/23 13:20 Dose: 5,000 units Documented By: SONALI Hydralazine HCl (Hydralazine Tab 50 Mg Tab) 50 mg PO TID [facility] Stop: 11/20/23 13:59 Last Admin: 10/22/23 08:35 Dose: 50 mg Documented By: Admin: 10/21/23 20:13 Dose: 50 mg Documented By: Admin: 10/21/23 13:19 Dose: 50 mg Documented By: SONALI Losartan Potassium (Losartan Potassium 50 Mg Tab) 50 mg PO BID [facility] Stop: 11/20/23 20:59 Last Admin: 10/22/23 08:35 Dose: 50 mg Documented By: Admin: 10/21/23 20:11 Dose: 50 mg Documented By: CORNEL Paroxetine HCl (Paroxetine Hcl 20 Mg Tab) 40 mg PO DAILY [facility] Stop: 11/21/23 08:59 Last Admin: 10/22/23 08:35 Dose: 40 mg Documented By: Prednisone (Prednisone 20 Mg Tab) 40 mg PO DAILY [facility] Stop: 10/26/23 08:59 Last Admin: 10/22/23 08:35 Dose: 40 mg Documented By: Terazosin HCl (Terazosin Hcl 1 Mg Cap) 2 mg PO HS [facility] Stop: 11/20/23 20:59 Last Admin: 10/21/23 20:14 Dose: 2 mg Documented By: CORNEL Umeclidinium Phoenix (Umeclidinium Phoenix 62.5mcg/Blister 7 Puffs/Inhaler) 1 puffs INH DAILY [facility] Stop: 11/20/23 11:52 Last Admin: 10/22/23 08:35 Dose: 1 puffs Documented By: Admin: 10/21/23 13:19 Dose: 1 puffs Documented By: SONALI Discontinued Medications Albuterol (Albut/Ipratrop 3mg/0.5mg Neb 3 Ml Vial) 12 ml NEB ONE ONE; Protocol Stop: 10/21/23 07:11 Last Admin: 10/21/23 07:22 Dose: 12 ml Documented By: MINERVA Albuterol (Albut/Ipratrop 3mg/0.5mg Neb 3 Ml Vial) Confirm Administered Dose 3 ml .ROUTE .STK-MED ONE Stop: 10/21/23 13:49 Last Admin: 10/21/23 13:50 Dose: Not Given Documented By: TRENA Ceftriaxone Sodium (Rocephin) 1,000 mg in 50 mls @ 100 mls/hr IV NOW STA Stop: 10/21/23 08:25 Last Infusion: 10/21/23 08:46 Dose: Infused Documented By: Admin: 10/21/23 08:09 Dose: 100 mls/hr Documented By: MILLY Magnesium Sulfate/Dextrose (Magnesium Sulfate / D5w) 1 gm in 100 mls @ 100 mls/hr IV NOW STA Stop: 10/21/23 09:40 Last Infusion: 10/21/23 09:56 Dose: Infused Documented By: Admin: 10/21/23 08:50 Dose: 100 mls/hr Documented By: MILLY Sodium Chloride (Nss) 500 mls @ 80 mls/hr IV .Q6H15M [facility] Stop: 11/20/23 09:29 Last Admin: 10/21/23 11:39 Dose: Not Given Documented By: LUKE Ioversol (Optiray 320 125ml) 116 ml IV ONCE ONE Stop: 10/21/23 10:25 Last Admin: 10/21/23 10:26 Dose: 116 ml Documented By: KD Losartan Potassium (Losartan Potassium 50 Mg Tab) 50 mg PO ONCE ONE Stop: 10/21/23 12:06 Last Admin: 10/21/23 13:19 Dose: 50 mg Documented By: SONALI Methylprednisolone (Methylprednisolone 125 Mg/2 Ml Vial) 60 mg IV NOW STA Stop: 10/21/23 07:11 Last Admin: 10/21/23 07:22 Dose: 60 mg Documented By: MILLY Imaging Data Radiologist's Impression: Chest X-Ray 10/21/23 07:10 XR chest 1V portable CLINICAL HISTORY: Shortness of breath. COMPARISON STUDY: Chest CT June 11, 2023. Chest radiograph June 13, 2023. FINDINGS: Blunting of left costophrenic angle is chronic. There is no pneumothorax. There is a small right pleural effusion. Underlying emphysema is present. Asymmetric interstitial thickening within the right lung is present. There is also right basilar opacity. Cardiomediastinal silhouette is stable. IMPRESSION: 1. Asymmetric interstitial thickening within the right lung which favors pulmonary edema. Small right pleural effusion. 2. Right basilar opacity which may reflect superimposed pneumonia or alveolar pulmonary edema. Radiographic follow up to ensure resolution is recommended. 3. Small right pleural effusion. 4. Emphysema. ACT 112: Negative or not required by law. Electronically signed by: Kwame Weir M.D. 10/21/2023 7:48 AM Discharge Plan Visit Data Chief Complaint: Respiratory Problems Stated Complaint: HARD TO BREATHE ED Provider: Joann Brothers Discharge Problem: Dyspnea, Hypoxia, COPD exacerbation, Pneumonia Patient Disposition: Admitted As Inpatient Discharge Instructions Interventions: ED Discharge Assessment Last Done: 10/21/23 11:22
[2023-10-21 07:47] LABS: Basophils # (auto) 0.08 K/uL (0.00-0.20); Basophils % (auto) 0.4 %; Eosinophils # (auto) 0.09 K/uL (0.00-0.50); Eosinophils % (auto) 0.4 %; Hematocrit (blood only) 35.3 % (37.0-47.0); Hemoglobin 11.8 g/dl (12.0-16.0); Immature Granulocytes # (auto) 0.13 K/uL (0.01-0.20); Immature Granulocytes % (auto) 0.6 %; Lymphocytes # (auto) 2.95 K/uL (1.20-3.40); Lymphocytes % (auto) 14.1 %; Mean Corpuscular Hemoglobin 29.6 pg (25.0-34.0); Mean Corpuscular Hgb Conc 33.4 g/dL (32.0-36.0); Mean Corpuscular Volume 88.5 fL (80.0-100.0); Mean Platelet Volume 10.9 fL (9.4-12.4); Monocytes # (auto) 1.41 K/uL (0.11-0.59); Monocytes % (auto) 6.7 %; Neutrophils # (auto) 16.28 K/uL (1.40-6.50); Neutrophils % (auto) 77.8 %; Platelet Count 231 K/uL (130-400); RDW Coefficient of Variation 14.6 % (11.5-14.5); RDW Standard Deviation 47.2 fL (36.4-46.3); Red Blood Count 3.99 M/uL (4.20-5.40); White Blood Count 20.94 K/ul (4.8-10.8)
--- NOTE | 2023-10-21 07:50 | XRay Report ---
XR chest 1V portable CLINICAL HISTORY: Shortness of breath. COMPARISON STUDY: Chest CT June 11, 2023. Chest radiograph June 13, 2023. FINDINGS: Blunting of left costophrenic angle is chronic. There is no pneumothorax. There is a small right pleural effusion. Underlying emphysema is present. Asymmetric interstitial thickening within th e right lung is present. There is also right basilar opacity. Cardiomediastinal silhouette is stable. IMPRESSION: 1. Asymmetric interstitial thickening within the right lung which favors pulmonary edema. Small right pleural effusion. 2. Right basilar opacity which may reflect superimposed pneumonia or alveolar pulmonary edema. Radiog raphic follow up to ensure resolution is recommended. 3. Small right pleural effusion. 4. Emphysema. ACT 112: Negative or not required by law. Electronically signed by: Kwame Weir M.D. 10/21/2023 7:48 AM
[2023-10-21] MEDS ORDERED: cefTRIAXone SODIUM 1,000 MG/50 ML BAG IV STA (07:56)
[2023-10-21 08:00] LABS: Albumin Globulin Ratio 1.6 (0.9-2); Albumin Level 4.4 gm/dl (3.4-5.0); BUN Creatinine Ratio 18.4 (10-20); Bilirubin,Total 0.5 mg/dl (0.2-1.0); Calcium 8.9 mg/dl (8.6-10.3); Creatinine Clr Calc Pharmacy 39.3 ml/min; Est GFR (African American) 55.3 ml/min; Est GFR (Non-African American) 47.7 ml/min; Globulin 2.8 gm/dl (2.5-4.0); Magnesium 1.7 mg/dl (1.7-2.4); Total Protein 7.2 gm/dl (6.0-8.3)
[2023-10-21 08:06] LABS: Troponin I High Sensitivity 19.7 pg/ml (0-14)
[2023-10-21 08:15] LABS: Thyroid Stimulating Hormone 1.583 uIu/ml (0.300-4.500)
[2023-10-21 08:27] LABS: Adenovirus PCR Not Detected (NotDetected); Bordetella parapertussis PCR Not Detected (NotDetected); Bordetella pertussis PCR Not Detected (NotDetected); Chlamydia pneumoniae PCR Not Detected (NotDetected); Coronavirus 229E PCR Not Detected (NotDetected); Coronavirus CoV-2 (COVID19)PCR Not Detected (NotDetected); Coronavirus HKU1 PCR Not Detected (NotDetected); Coronavirus NL63 PCR Not Detected (NotDetected); Coronavirus OC43PCR Not Detected (NotDetected); Human Metapneumovirus PCR Not Detected (NotDetected); Influenza A PCR Not Detected (NotDetected); Influenza B PCR Not Detected (NotDetected); Mycoplasma pneumoniae PCR Not Detected (NotDetected); Parainfluenza Virus 1 PCR Not Detected (NotDetected); Parainfluenza Virus 2 PCR Not Detected (NotDetected); Parainfluenza Virus 3 PCR Not Detected (NotDetected); Parainfluenza Virus 4 PCR Not Detected (NotDetected); Respiratory Syncytial VirusPCR Not Detected (NotDetected); Rhinovirus/Enterovirus PCR Not Detected (NotDetected)
[2023-10-21] MEDS ORDERED: MAGNESIUM SULFATE / D5W 1 GM/100 ML BAG IV STA (08:41)
[2023-10-21] MEDS ORDERED: SODIUM CHLORIDE 0.9% 500 ML IV SCH (09:30)
--- NOTE | 2023-10-21 10:18 | History & Physical Report ---
Date of Service October 21, 2023 Assessment & Plan (1) Acute respiratory failure with hypoxia: (2) COPD exacerbation: (3) Elevated troponin: (4) Pneumonia: Plan: 58-year-old woman with history of COPD not on home oxygen, hypertension, vitamin D deficiency, osteoporosis, heterozygous for factor V Leiden mutation, hyperlipidemia, cigarette smoker, bipolar, lung cancer status post lung lobectomy who presents to the ER complaining of worsening shortness of breath, cough over the past few days. CXR noted asymmetric interstitial thickening in the right lung, suggestive of pulmonary edema, small right pleural effusion, right basilar opacity, emphysema. Labs notable for WBC of 20.94, hemoglobin of 11.8, sodium of 131, creatinine of 1.25 serum osmolality of 279, troponin of 19.7, BNP of 658. Respiratory PCR was negative Presentation suggestive of upper respiratory tract infection with COPD exacerbation. Got IV Solu-Medrol in ER. Review of prior hospitalization from 06/2023 also noted similar lung findings at the time CT PE did not show PE but noted asymmetric pulm edema, small right pleural effusion BNP is elevated but better than BNP during last hospitalization in 06/2023 (was 2238 then) Review of TTE in 06/2023 noted EF 50-55%, small circumferential pericardial effusion with moderate volume of fluid loculated adjacent to posterior lateral wall. No evidence of tamponade These suggests cause of hypoxia may be multifactorial -COPD exacerbation -Pneumonia -Pulm edema/Acute diastolic heart failure Trop is negative. EKG reviewed. NSR. No ST-T changes Will trend trop Tele monitor Procal is normal. Elevated WBC may be due to infection vs steroid at home. Pneumonia is possible though low suspicion Continue prednisone Continue duonebs Continue oxygen supplementation and wean as tolerated Continue ceftriaxone. Allergies to antibiotics (Erythromycin base/tetracycline/quinolones) Pulm consult Patient does not seem volume overloaded on physical exam, will continue lasix for now Get TTE. Consider getting Cards consult based on result of TTE and trop trending (5) CKD (chronic kidney disease) stage 2, GFR 60-89 ml/min: (6) Hyponatremia: Plan: Na 131 Check serum osm, Uosm, Guera Cr is 1.25. Was 1.9 on 10/02/23 and 1.4 on 10/13/23 per [facility] records Was seen by Nephrology Dr Johnson on 10/19/23 (7) Essential hypertension: Plan: On multiple antihypertensives Continue home amlodipine, losartan, hydralazine, coreg Monitor BP (8) DVT prophylaxis: Plan: Hep Sq Code Status: Full Dispo: PCU I spent a total of 75 minutes coordinating, documenting and providing care for this patient excluding time spent in performance of separately billed services History of Present Illness Chief Complaint: Shortness of breath Primary Care Provider: Saadia Alex PA-C 58-year-old woman with history of COPD not on home oxygen, hypertension, vitamin D deficiency, osteoporosis, heterozygous for factor V Leiden mutation, hyperlipidemia, cigarette smoker, bipolar, lung cancer status post lung lobectomy who presents to the ER complaining of worsening shortness of breath, cough over the past few days. Patient reported that she started having upper respiratory symptoms [sore throat, rhinorrhea, sinus congestion and dry cough] about 6 days ago. Over the past 2 days symptoms had worsened, now including shortness of breath and cough becoming more productive of yellowish sputum. Patient called into her doctor's office and was prescribed a rescue kit which she started yesterday. She reported she been using her nebulizer at home and shortness of breath was worsening, associated with chest tightness, wheezing, chills. Denies any fevers, nausea, vomiting, palpitation, chest pain, abdominal pain, diarrhea, constipation, dysuria, frequency, urgency, hematuria Per ER physician, patient was hypoxic to 70s on room air on presentation and was put on oxygen mask. She had decreased breath sounds with wheezing. Was started on Solu-Medrol IV and neb treatment with some improvement. Patient reports that she still smokes a few cigarettes [average of 3 cigarettes/day] Denies alcohol or illicit drug use. Allergies Allergy/AdvReac Type Severity Reaction Status Date / Time Bactrim Allergy Intermediate HIVES Verified 07/26/15 07:15 Sulfa (Sulfonamide Allergy Intermediate BACTRIM- Verified 07/06/23 11:10 Antibiotics) HIVES sulfamethoxazole Allergy Intermediate HIVES Verified 07/06/23 11:10 trimethoprim Allergy Intermediate HIVES Verified 07/06/23 11:10 erythromycin base Allergy Unknown Verified 07/06/23 11:10 metaxalone Allergy Unknown Verified 07/06/23 11:10 morphine Allergy Unknown . Verified 07/06/23 11:10 neomycin Allergy Unknown Verified 07/06/23 11:10 Quinolones Allergy Unknown Verified 07/06/23 11:10 tetracycline Allergy Unknown Verified 07/06/23 11:10 amoxicillin [From Augmentin] Allergy Verified 07/06/23 11:10 clavulanic acid Allergy Verified 07/06/23 11:10 [From Augmentin] umeclidinium Allergy Verified 07/06/23 11:10 [From Anoro Ellipta] vilanterol Allergy Verified 07/06/23 11:10 [From Anoro Ellipta] moxifloxacin AdvReac Unknown hives Verified 07/06/23 11:10 Home Medications Medication Instructions Recorded Confirmed Type aripiprazole 5 mg tablet (Abilify) 5 mg PO DAILY 12/03/19 10/21/23 History aspirin 81 mg tablet 81 mg PO DAILY 02/04/20 10/21/23 History cetirizine 10 mg tablet 10 mg PO DAILY 02/04/20 10/21/23 History clonazepam 0.5 mg tablet 0.5 mg PO BID PRN Anxiety 02/04/20 10/21/23 History amlodipine 10 mg tablet 10 mg PO DAILY 08/01/21 10/21/23 History losartan 50 mg tablet 50 mg PO BID 08/01/21 10/21/23 History albuterol sulfate 90 mcg/actuation 2 puff inhalation Q4H PRN 02/20/22 10/21/23 Rx aerosol inhaler (Ventolin HFA) shortness of breath ,coughing or wheezing #18 grams atorvastatin 20 mg tablet 20 mg PO DAILY 06/11/23 10/21/23 History carvedilol 25 mg tablet 25 mg PO BID 06/11/23 10/21/23 History paroxetine HCl 40 mg tablet 40 mg PO DAILY 06/11/23 10/21/23 History albuterol sulfate 2.5 mg/3 mL 2.5 mg (3 mL) inhalation Q4H PRN 06/15/23 10/21/23 Rx (0.083 %) solution for nebulization shortness of breath or wheezing #180 mL benzonatate 100 mg capsule 100 mg PO TID PRN cough #20 caps 06/15/23 10/21/23 Rx furosemide 20 mg tablet 20 mg PO BID #60 tabs 06/15/23 10/21/23 Rx hydralazine 50 mg tablet 50 mg PO TID #90 tabs 06/15/23 10/21/23 Rx terazosin 1 mg capsule 2 mg (2 x 1 mg) PO HS #30 caps 06/15/23 10/21/23 Rx umeclidinium 62.5 mcg/actuation 1 inh inhalation DAILY #90 puffs 07/10/23 10/21/23 Rx blister powder for inhalation (Incruse Ellipta) fluticasone propionate 50 1 spray intranasal BID #18.2 mL 10/19/23 10/21/23 Rx mcg/actuation nasal spray,suspension (Flonase Allergy Relief) acetaminophen 650 mg 650 mg PO Q8H PRN Pain 10/21/23 10/21/23 History tablet,extended release alendronate 70 mg tablet 70 mg PO WK 10/21/23 10/21/23 History ergocalciferol (vitamin D2) 1,250 1,250 mcg PO WK 10/21/23 10/21/23 History mcg (50,000 unit) capsule (Vitamin D2) Past Med/Surg History Medical History (Updated 10/21/23 @ 11:44 by Harpal Le MD) Pleural effusion Atelectasis Acute CHF Anaphylaxis History of temporomandibular joint disorder GERD (gastroesophageal reflux disease) Bipolar disorder Essential hypertension Breast fibroadenoma Dyslipidemia 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 Malignant neoplasm of upper lobe, left bronchus or lung Pulmonary emphysema Pulmonary nodule Arthritis Allergic rhinitis Lumbar stenosis (09/25/14) Surgical History History of D&C History of lumbar surgery H/O breast surgery H/O splenectomy Family History Father Hypertension Mother Lung cancer Other Breast cancer COPD (chronic obstructive pulmonary disease) Diabetes Social History Smoking Status: Current every day smoker Tobacco Type: Cigarettes Cigarettes Per Day: 3; Tobacco Cessation Education Requested by Patient: No Hx Alcohol Use: Yes Hx Substance Use: No Preferred Language: Egyptian Communication Ability: Effective 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 Beliefs That Will Affect Care: None marital status: Current Living Situation: Significant Other current occupational status: disabled Feels Safe at Home: Yes Safety Concerns: Feels Safe At This Time Assistive Devices: Denture - Lower and Glasses Review of Systems Review of Systems: All systems reviewed & are unremarkable except as noted in HPI & below Physical Exam Constitutional: + acute distress (Mild tachypnea) Eyes: PERRL, conjunctivae normal, anicteric sclerae ENMT: external ear and nose normal, oropharynx normal Respiratory: + cough and + tachypneic; does not use a ccessory muscles Auscultation: + diminished lung sounds and + wheezes Cardiovascular: Rate/Rhythm: regular rate and regular rhythm S1-S2 Gastrointestinal (Abdomen): normal bowel sounds, soft, nontender, no hepatosplenomegaly Musculoskeletal: No pedal edema Neurologic: PERRL, EOMI, accommodation nl, no face palsy, no dysarthria Psychiatric: A+Ox3, euthymic affect Results & Data Results & Data Vital Signs (Past 12 Hours) Vital Signs Temp Pulse Pulse Resp BP Pulse Ox O2 Del Method 10/21/23 09:00 77 23 154/75 H 91 Oxymask 10/21/23 08:18 92 H 10/21/23 08:11 78 27 H 163/81 H 96 Nebulizer 10/21/23 07:28 Oxymask 10/21/23 07:22 83 24 98 Oxymask 10/21/23 07:09 99 Oxymask 10/21/23 07:05 36.5 C 91 H 32 H 188/92 H 73 L Room Air O2 Flow Rate 10/21/23 09:00 10 10/21/23 08:18 10/21/23 08:11 10/21/23 07:28 10 10/21/23 07:22 10 10/21/23 07:09 10 10/21/23 07:05 Laboratory Results Abnormal lab results 10/21/23 10/21/23 10/21/23 Range/Units 07:15 08:20 09:30 WBC 20.94 H (4.8-10.8) K/ul RBC 3.99 L (4.20-5.40) M/uL Hgb 11.8 L (12.0-16.0) g/dl Hct 35.3 L (37.0-47.0) % RDW Std Deviation 47.2 H (36.4-46.3) fL RDW Coeff of Shanna 14.6 H (11.5-14.5) % Neut # (Auto) 16.28 H (1.40-6.50) K/uL Giles # (Auto) 1.41 H (0.11-0.59) K/uL Sodium 131 L (136-145) mmol/L Creatinine 1.25 H (0.6-1.2) mg/dl Glucose 134 H (70-99(Fasting)) mg/dl Osmolality 279 L (280-300) mOsm/kg Troponin I High Sens 19.7 H (0-14) pg/ml B-Natriuretic Peptide 658 H (0-100) pg/ml Diagnostic Findings CXR CLINICAL HISTORY: Shortness of breath. COMPARISON STUDY: Chest CT June 11, 2023. Chest radiograph June 13, 2023. FINDINGS: Blunting of left costophrenic angle is chronic. There is no pneumothorax. There is a small right pleural effusion. Underlying emphysema is present. Asymmetric interstitial thickening within the right lung is present. There is also right basilar opacity. Cardiomediastinal silhouette is stable. IMPRESSION: 1. Asymmetric interstitial thickening within the right lung which favors pulmonary edema. Small right pleural effusion. 2. Right basilar opacity which may reflect superimposed pneumonia or alveolar pulmonary edema. Radiographic follow up to ensure resolution is recommended. 3. Small right pleural effusion. 4. Emphysema. Code Status & VTE Plan Code Status Full Code VTE Prophylaxis Plan VTE Prophylaxis will be ordered: Yes (4) Pneumonia Laterality: right Lung location: lower lobe of lung Pneumonia type: due to unspecified organism Qualified Code(s): J18.9 - Pneumonia, unspecified organism
[2023-10-21] MEDS ORDERED: OPTIRAY 320 125ml IV ONE (10:24)
--- NOTE | 2023-10-21 10:50 | CT Scan Report ---
CT ANGIOGRAPHY OF THE CHEST, PULMONARY EMBOLUS PROTOCOL CLINICAL HISTORY: Shortness of breath. Evaluate for pulmonary embolus. COMPARISON STUDY: Chest CT June 11, 2023 chest radiograph performed earlier today. TECHNIQUE: Following IV administration of Optiray, helical axial images of the chest were obtained ut ilizing the pulmonary embolus protocol. Maximal intensity projections and sagittal and coronal refor mats were viewed on an independent 3D workstation. IV contrast was administered without complication . Automated exposure control was utilized for the study. A dose lowering technique was utilized adh ering to the principles of ALARA. CT DOSE: 315.57 mGy.cm FINDINGS: No pulmonary emboli are identified. Mild cardiomegaly is unchanged. Mildly enlarged right hilar lymph nodes are unchanged since CT of June 11, 2023. There is a small right pleural effusi on. There is no pneumothorax. Asymmetric interlobular septal thickening and groundglass opacities wit hin the right lung are noted. Subpleural right lower lobe airspace opacity is present. There is under lying emphysema. No acute fractures are present. Body wall edema is present. Extensive calcified plaq ue within the distal descending and proximal abdominal aorta is present. This results in severe steno sis. This is similar to prior CT. IMPRESSION: 1. No pulmonary emboli identified. 2. Findings suggestive of asymmetric pulmonary edema within the right lung. Small right pleural effus ion. Subpleural right lower lobe opacity favors atelectasis. Pneumonia could appear similar but is co nsidered less likely. 3. Stable postoperative findings following left upper lobectomy. 4. Mildly enlarged right hilar lymph nodes which are unchanged since prior CT. A follow-up chest CT i n 6 months to ensure continued stability recommended ACT 112: Negative or not required by law. Electronically signed by: Kwame Weir M.D. 10/21/2023 10:48 AM
--- NOTE | 2023-10-21 11:50 | Pulmonary Consultation ---
Date of Consultation October 21, 2023 Assessment & Plan (1) Acute respiratory failure with hypoxia: (2) Acute CHF: Heart failure type: right-sided Qualified Code(s): I50.811 - Acute right heart failure (3) Atelectasis: (4) Pleural effusion: Plan 58-year-old female with a complex medical history including left upper lobectomy in 2014 for stage Ib adenocarcinoma, COPD, pericardial effusion and bipolar disorder who presents due to shortness of breath and cough. I personally reviewed her CT chest from this admission and compared it to June. The right lower lobe atelectasis and adjacent pleural effusion are relatively unchanged. There does not appear to be any new discrete infiltrate or lobar consolidation. Her BNP is elevated. I am suspicious that she has an element of cor pulmonale or other cardiac related dysfunction leading to her acute hypoxemia. I would recommend an echo to follow-up on the moderate-sized pericardial effusion as this may need drained. She would also benefit from diuretic therapy to offload her right ventricle. Reasonable to continue with empiric steroids and antibiotics at this time. Procalcitonin was negative on admission, but would recommend repeating procalcitonin tomorrow. Recommend incentive spirometry to help open up that right lower lobe. Consider bronchoscopy when stable to evaluate the right lower lobe for endobronchial lesion given the persistent atelectasis. History of Present Illness Reason for Consultation: COPD exacerbation History of Present Illness 58-year-old female with a past medical history of stage Ib adenocarcinoma of the lung status post left upper lobe resection in 2014, COPD, prior tobacco abuse (smoked 39 pack years and quit in 2015), bipolar disorder, anxiety hyperlipidemia and hypertension, factor V Leiden mutation who presented to the hospital today with increased cough, shortness of breath and sinus congestion over the past week. She notes that she is coughing up yellow phlegm. She had a chest CT today with contrast. No pulmonary embolism was identified. Significant asymmetric pulmonary edema in the right lung and a small right pleural effusion with evidence of atelectasis in the right lower lobe. There were mildly enlarged right hilar lymph nodes as well. Procalcitonin was negative on admission. White count elevated to 20,000. She was started on Rocephin and methylprednisolone by the ER. Troponin on admission was minimally elevated. EKG negative for ischemic changes. Echo 06/11/2023 revealed an EF of 50 to 55%. Small circumferential pericardial effusion with moderate volume of fluid loculated adjacent to the posterior wall noted. BNP elevated to 658. She follows with Dr. Franklin in the pulmonary clinic for the last saw her 07/10/2023. She is maintained on Incruse Ellipta and an albuterol inhaler. Allergies Allergy/AdvReac Type Severity Reaction Status Date / Time Bactrim Allergy Intermediate HIVES Verified 07/26/15 07:15 Sulfa (Sulfonamide Allergy Intermediate BACTRIM- Verified 07/06/23 11:10 Antibiotics) HIVES sulfamethoxazole Allergy Intermediate HIVES Verified 07/06/23 11:10 trimethoprim Allergy Intermediate HIVES Verified 07/06/23 11:10 erythromycin base Allergy Unknown Verified 07/06/23 11:10 metaxalone Allergy Unknown Verified 07/06/23 11:10 morphine Allergy Unknown . Verified 07/06/23 11:10 neomycin Allergy Unknown Verified 07/06/23 11:10 Quinolones Allergy Unknown Verified 07/06/23 11:10 tetracycline Allergy Unknown Verified 07/06/23 11:10 amoxicillin [From Augmentin] Allergy Verified 07/06/23 11:10 clavulanic acid Allergy Verified 07/06/23 11:10 [From Augmentin] umeclidinium Allergy Verified 07/06/23 11:10 [From Anoro Ellipta] vilanterol Allergy Verified 07/06/23 11:10 [From Anoro Ellipta] moxifloxacin AdvReac Unknown hives Verified 07/06/23 11:10 Home Medications Medication Instructions Recorded Confirmed Type aripiprazole 5 mg tablet (Abilify) 5 mg PO DAILY 12/03/19 10/21/23 History aspirin 81 mg tablet 81 mg PO DAILY 02/04/20 10/21/23 History cetirizine 10 mg tablet 10 mg PO DAILY 02/04/20 10/21/23 History clonazepam 0.5 mg tablet 0.5 mg PO BID PRN Anxiety 02/04/20 10/21/23 History amlodipine 10 mg tablet 10 mg PO DAILY 08/01/21 10/21/23 History losartan 50 mg tablet 50 mg PO BID 08/01/21 10/21/23 History albuterol sulfate 90 mcg/actuation 2 puff inhalation Q4H PRN 02/20/22 10/21/23 Rx aerosol inhaler (Ventolin HFA) shortness of breath ,coughing or wheezing #18 grams atorvastatin 20 mg tablet 20 mg PO DAILY 06/11/23 10/21/23 History carvedilol 25 mg tablet 25 mg PO BID 06/11/23 10/21/23 History paroxetine HCl 40 mg tablet 40 mg PO DAILY 06/11/23 10/21/23 History albuterol sulfate 2.5 mg/3 mL 2.5 mg (3 mL) inhalation Q4H PRN 06/15/23 10/21/23 Rx (0.083 %) solution for nebulization shortness of breath or wheezing #180 mL benzonatate 100 mg capsule 100 mg PO TID PRN cough #20 caps 06/15/23 10/21/23 Rx furosemide 20 mg tablet 20 mg PO BID #60 tabs 06/15/23 10/21/23 Rx hydralazine 50 mg tablet 50 mg PO TID #90 tabs 06/15/23 10/21/23 Rx terazosin 1 mg capsule 2 mg (2 x 1 mg) PO HS #30 caps 06/15/23 10/21/23 Rx umeclidinium 62.5 mcg/actuation 1 inh inhalation DAILY #90 puffs 07/10/23 10/21/23 Rx blister powder for inhalation (Incruse Ellipta) fluticasone propionate 50 1 spray intranasal BID #18.2 mL 10/19/23 10/21/23 Rx mcg/actuation nasal spray,suspension (Flonase Allergy Relief) acetaminophen 650 mg 650 mg PO Q8H PRN Pain 10/21/23 10/21/23 History tablet,extended release alendronate 70 mg tablet 70 mg PO WK 10/21/23 10/21/23 History ergocalciferol (vitamin D2) 1,250 1,250 mcg PO WK 10/21/23 10/21/23 History mcg (50,000 unit) capsule (Vitamin D2) Patient History Medical History (Updated 10/21/23 @ 11:44 by Harpal Le MD) Pleural effusion Atelectasis Acute CHF Anaphylaxis History of temporomandibular joint disorder GERD (gastroesophageal reflux disease) Bipolar disorder Essential hypertension Breast fibroadenoma Dyslipidemia 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 Malignant neoplasm of upper lobe, left bronchus or lung Pulmonary emphysema Pulmonary nodule Arthritis Allergic rhinitis Lumbar stenosis (09/25/14) Surgical History History of D&C History of lumbar surgery H/O breast surgery H/O splenectomy Family History Father Hypertension Mother Lung cancer Other Breast cancer COPD (chronic obstructive pulmonary disease) Diabetes Social History Smoking Status: Current every day smoker Tobacco Type: Cigarettes Cigarettes Per Day: 3; Hx Alcohol Use: Yes Hx Substance Use: No Preferred Language: Mohawk Communication Ability: Effective 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 Patient is in no apparent distress. Patient is well-developed. Eyes: Pupils are equal round and reactive to light. Conjunctivae are normal. Anicteric sclera. Ears nose, mouth and throat: Mallampati class 2. Normal posterior oropharynx. Uvula is midline. Neck: Trachea is midline. Visual inspection is normal. Respiratory: Mild expiratory wheeze. Diminished at the right lung base. Cardiovascular: Regular rate and rhythm. No murmurs. No edema. Gastrointestinal: Normal bowel sounds, soft, nontender and nondistended. No hepatosplenomegaly noted. Musculoskeletal: No cyanosis. Patient is able to move all extremities. Strength is 5 out of 5 in the upper and lower extremities. Skin: No rashes, warm dry and intact. Neurologic: No obvious focal neurological deficits seen. Psychiatric: Alert and oriented x3 with a euthymic affect. Results & Data Results & Data Vital Signs (Past 12 Hours) Vital Signs Temp Pulse Pulse Resp BP Pulse Ox O2 Del Method 10/21/23 11:22 86 21 169/85 H 90 Oxymask 10/21/23 11:00 86 21 169/85 H 90 Oxymask 10/21/23 09:00 77 23 154/75 H 91 Oxymask 10/21/23 08:18 92 H 10/21/23 08:11 78 27 H 163/81 H 96 Nebulizer 10/21/23 07:28 Oxymask 10/21/23 07:22 83 24 98 Oxymask 10/21/23 07:09 99 Oxymask 10/21/23 07:05 36.5 C 91 H 32 H 188/92 H 73 L Room Air O2 Flow Rate 10/21/23 11:22 12 10/21/23 11:00 12 10/21/23 09:00 10 10/21/23 08:18 10/21/23 08:11 10/21/23 07:28 10 10/21/23 07:22 10 10/21/23 07:09 10 10/21/23 07:05 PG Care Time/CCT Total # of Minutes Spent Total Time Spent with Patient: Total time spent is greater than 50% in coordination of care (as documented) at patient's floor/unit and/or counseling patient: Coding Level of Care Code 25208 IN/OBS CONSULT LVL 4,60M Diagnoses Acute respiratory failure with hypoxia J96.01 Acute right-sided congestive heart failure I50.811 Heart failure type: right-sided Atelectasis J98.11 Pleural effusion J90
[2023-10-21] MEDS ORDERED: ALBUTEROL 0.083% NEBU SOLN 3 ML VIAL NEB PRN (11:53)
[2023-10-21] MEDS ORDERED: ACETAMINOPHEN 325 MG TAB PO PRN (12:02)
[2023-10-21] MEDS ORDERED: LOSARTAN POTASSIUM 50 MG TAB PO ONE (12:05)
[2023-10-21] MEDS: carvediloL 25 MG TAB PO SCH ×2 (13:18→20:13)
[2023-10-21] MEDS: amLODIPine BESYLATE 5 MG TAB PO SCH (13:18)
[2023-10-21] MEDS: CETIRIZINE HCL 10 MG TABLET PO SCH (13:19)
[2023-10-21] MEDS: hydrALAZINE TAB 50 MG TAB PO SCH ×2 (13:19→20:13)
[2023-10-21] MEDS: guaiFENesin 600 MG TABCR PO SCH ×2 (13:19→20:10)
[2023-10-21] MEDS: UMECLIDINIUM BROMIDE 62.5MCG/BLISTER 7 PUFFS/INHALER INH SCH (13:19)
[2023-10-21] MEDS: HEPARIN SOD 5,000 UNIT/0.5 ML VIAL SQ SCH ×2 (13:20→21:36)
--- NOTE | 2023-10-21 13:29 | Electrocardiogram Report ---
Test Reason : Blood Pressure : / mmHG Vent. Rate : 082 BPM Atrial Rate : 082 BPM P-R Int : 164 ms QRS Dur : 084 ms QT Int : 384 ms P-R-T Axes : 070 002 078 degrees QTc Int : 448 ms Normal sinus rhythm Normal ECG When compared with ECG of 12-JUN-2023 05:45, No significant change was found Confirmed by Vern Segovia ([id number]) on 10/21/2023 1:28:37 PM Referred By: REFERRED SELF Confirmed By:Edilson Segovia
[2023-10-21] MEDS ORDERED: ALBUT/IPRATROP 3MG/0.5MG NEB 3 ML VIAL ONE (13:48)
[2023-10-21] MEDS: ALBUT/IPRATROP 3MG/0.5MG NEB 3 ML VIAL NEB SCH ×2 (13:59→19:48)
[2023-10-21] MEDS: FUROSEMIDE 20 MG TAB PO SCH (16:15)
[2023-10-21] MEDS: LOSARTAN POTASSIUM 50 MG TAB PO SCH (20:11)
[2023-10-21] MEDS: TERAZOSIN HCL 1 MG CAP PO SCH (20:14)
[2023-10-21] MEDS: BENZONATATE 100 MG CAPSULE PO PRN (20:17)
[2023-10-21] MEDS: clonazePAM 0.5 MG TAB PO PRN (20:17)
[2023-10-22] MEDS: HEPARIN SOD 5,000 UNIT/0.5 ML VIAL SQ SCH ×3 (06:09→20:58)
[2023-10-22] MEDS: ALBUT/IPRATROP 3MG/0.5MG NEB 3 ML VIAL NEB SCH ×4 (07:16→19:42)
[2023-10-22] MEDS: CETIRIZINE HCL 10 MG TABLET PO SCH (08:35)
[2023-10-22] MEDS: PARoxetine HCL 20 MG TAB PO SCH (08:35)
[2023-10-22] MEDS: carvediloL 25 MG TAB PO SCH ×2 (08:35→20:57)
[2023-10-22] MEDS: hydrALAZINE TAB 50 MG TAB PO SCH ×3 (08:35→20:57)
[2023-10-22] MEDS: LOSARTAN POTASSIUM 50 MG TAB PO SCH ×2 (08:35→20:58)
[2023-10-22] MEDS: guaiFENesin 600 MG TABCR PO SCH ×2 (08:35→20:56)
[2023-10-22] MEDS: predniSONE 20 MG TAB PO SCH (08:35)
[2023-10-22] MEDS: UMECLIDINIUM BROMIDE 62.5MCG/BLISTER 7 PUFFS/INHALER INH SCH (08:35)
[2023-10-22] MEDS: FUROSEMIDE 20 MG TAB PO SCH ×2 (08:35→16:22)
[2023-10-22] MEDS: amLODIPine BESYLATE 5 MG TAB PO SCH (08:36)
[2023-10-22] MEDS: ASPIRIN 81 MG ECTAB PO SCH (08:36)
[2023-10-22] MEDS: ATORVASTATIN 20 MG TAB PO SCH (08:36)
[2023-10-22] MEDS: ARIPiprazole 5 MG TAB PO SCH (08:36)
--- NOTE | 2023-10-22 08:42 | Pulmonology Progress Note ---
Date of Service October 22, 2023 Assessment & Plan (1) Acute respiratory failure with hypoxia: (2) Acute CHF: Heart failure type: right-sided Qualified Code(s): I50.811 - Acute right heart failure (3) Atelectasis: (4) Pleural effusion: Plan 58-year-old female with a complex medical history including left upper lobectomy in 2014 for stage Ib adenocarcinoma, COPD, pericardial effusion and bipolar disorder who presents due to shortness of breath and cough. CT chest 10/21/2023 personally reviewed: Centrilobular emphysema appreciated bilaterally Left apical pleural scarring, s/p left upper lobectomy Consolidative process appreciated the right lower lobe with small right-sided pleural effusion Elevated left hemidiaphragm Right hilar lymphadenopathy 2D echo 10/22/2023: EF 50-55%, grade 1 diastolic dysfunction, circumferential pericardial effusion, no indication of cardiac tamponade --Acute hypoxic respiratory failure Multifactorial Combination of COPD as well as diastolic dysfunction BNP 658 Procalcitonin negative Nasal MRSA negative Respiratory bio fire negative for everything on 10/21/2023 --Pleural effusion Could be parapneumonic from pneumonia along with diastolic CHF Continue to monitor --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 Franklin --History of lung cancer S/p left upper lobectomy 2014 No chemo or radiation Plan: Follow-up urine Legionella Complete the course of tapering prednisone over 5 days. Continue with antibiotics along with atypical coverage for total of 5 days Continue with diuretics to keep the patient negative balance Continue with Mucinex, add hypertonic saline nebulized along with flutter valve Will need repeat CT chest to be done in 2 months. The patient still has persistent right lower lobe pneumonia and then bronchoscopy could be considered Please note the above document was generated using voice recognition software. It may contain grammatical, syntax or spelling errors.Any formal questions or concerns about the content, text or information contained within the body of this dictation should be directly addressed to the provider for clarification. Admission and Anticipated Discharge Date Admission Date: October 21, 2023 Subjective Patient seen and examined at bedside. No acute distress Has been complaining of cough. Bringing up some mild blood-tinged phlegm especially early in the morning Shortness of breath still present on exertion No chest pain, no headache Tolerating diet No nausea vomiting Review of Systems 2 Review of Systems: All systems reviewed & are unremarkable except as noted in Subjective Physical Exam 2 Physical Exam: Constitutional: No acute distress HEENT: EOMI, PERRLA Respiratory system: Decreased air entry bilaterally, mild expiratory wheeze bilaterally, no rhonchi, positive crackles bilaterally more on the right side CVS: S1-S2 positive, accentuated P2 Abdomen: Soft, nontender, nondistended, positive bowel sounds x4 Extremities: +2 pulses bilaterally radialis/ dorsalis pedis, no cyanosis, no edema Neuro: Awake alert oriented x3 Psych: Normal mood and affect G/U: Pure wick Skin: no rashes, warm and dry Lymphatic: no cervical or axillary lymphadenopathy Results & Data Results & Data Vital Signs (Past 12 Hours) Vital Signs Temp Pulse Pulse Resp BP Pulse Ox O2 Del Method 10/22/23 08:11 36.5 C 76 22 178/81 H 93 Nasal Cannula 10/22/23 07:18 77 10/22/23 07:16 84 18 93 Nasal Cannula 10/22/23 03:14 155/74 H 10/22/23 03:10 37.1 C 77 18 174/71 H 100 High Flow Nasal Cannula 10/21/23 22:53 37.2 C 72 16 161/68 H 97 High Flow Nasal Cannula 10/21/23 22:44 74 10/21/23 22:00 High Flow Nasal Cannula O2 Flow Rate 10/22/23 08:11 11.0 10/22/23 07:18 10/22/23 07:16 11 10/22/23 03:14 10/22/23 03:10 15 10/21/23 22:53 15 10/21/23 22:44 10/21/23 22:00 15 Laboratory Results 10/21/23 07:15 10/21/23 07:15 PG Care Time/CCT Total # of Minutes Spent Total Time Spent with Patient: Total time spent is greater than 50% in coordination of care (as documented) at patient's floor/unit and/or counseling patient: Coding Level of Care Code 61901 SUB INP/OBS CARE 3/50MIN Diagnoses Acute respiratory failure with hypoxia J96.01 Acute right-sided congestive heart failure I50.811 Heart failure type: right-sided Atelectasis J98.11 Pleural effusion J90
--- NOTE | 2023-10-22 09:22 | Hospitalist Progress Note ---
Date of Service October 22, 2023 Assessment & Plan (1) Acute respiratory failure with hypoxia: (2) COPD exacerbation: (3) Elevated troponin: (4) Pneumonia: Plan: 58-year-old woman with history of COPD not on home oxygen, hypertension, vitamin D deficiency, osteoporosis, heterozygous for factor V Leiden mutation, hyperlipidemia, cigarette smoker, bipolar, lung cancer status post lung lobectomy who presents to the ER complaining of worsening shortness of breath, cough over the past few days. CXR noted asymmetric interstitial thickening in the right lung, suggestive of pulmonary edema, small right pleural effusion, right basilar opacity, emphysema. Labs notable for WBC of 20.94, hemoglobin of 11.8, sodium of 131, creatinine of 1.25 serum osmolality of 279, troponin of 19.7, BNP of 658. Respiratory PCR was negative Presentation suggestive of upper respiratory tract infection with COPD exacerbation. Got IV Solu-Medrol in ER. Review of prior hospitalization from 06/2023 also noted similar lung findings at the time CT PE did not show PE but noted asymmetric pulm edema, small right pleural effusion BNP is elevated but better than BNP during last hospitalization in 06/2023 (was 2238 then) Review of TTE in 06/2023 noted EF 50-55%, small circumferential pericardial effusion with moderate volume of fluid loculated adjacent to posterior lateral wall. No evidence of tamponade These suggests cause of hypoxia may be multifactorial -COPD exacerbation -Pneumonia -Pulm edema/Acute diastolic heart failure Trop is negative. EKG reviewed. NSR. No ST-T changes trop downtrended Tele monitor Procal is normal. Elevated WBC may be due to infection vs steroid at home. Pneumonia is possible, ceftriaxone (abx) initiated Continue prednisone Continue duonebs Continue oxygen supplementation and wean as tolerated Continue ceftriaxone. Allergies to antibiotics (Erythromycin base/tetracycline/quinolones) Pulmonary medicine consulted - appreciate their input, hypertonic saline added Patient does not seem volume overloaded on physical exam, will continue lasix for now Echo obtained -no regional wall motion abnormalities noted. LVEF 50 to 55%. Grade 1 diastolic dysfunction. There is a small circumferential pericardial effusion with no significant amount of focal fluid collection adjacent to the apical lateral apical posterior and anterior lou. There are no echocardiographic indications of cardiac tamponade. Compared to images obtained at the time of the prior study in June 2023, there is no significant interval change. Consider getting Cards consult based on result of TTE and trop trending (5) CKD (chronic kidney disease) stage 2, GFR 60-89 ml/min: (6) Hyponatremia: Plan: Na 131 Check serum osm, Uosm, Guera Cr is 1.25. Was 1.9 on 10/02/23 and 1.4 on 10/13/23 per [facility] records Was seen by Nephrology Dr Johnson on 10/19/23 (7) Essential hypertension: Plan: On multiple antihypertensives Continue home amlodipine, losartan, hydralazine, coreg Monitor BP (8) DVT prophylaxis: Plan: Hep Sq Code Status: Full Dispo: PCU Admission and Anticipated Discharge Date Admission Date: October 21, 2023 Subjective Pt seen in follow up of acute hypoxic resp. failure Currently sitting up in bed in NAD, + coughing on 11 L of suppl. O2 Denies chest pain, abd. pain, n/v. no abd. pain Reports sputum production w/ some blood streaks, also says breathing is somewhat better than yesterday Review of Systems Review of Systems: All systems reviewed & are unremarkable except as noted in Subjective Physical Exam Physical Exam: Physical Exam: Constitutional: t hin F in NAD, on s uppl. O2 HEENT: NC /AT, EOMI, PERRL R espiratory system: +course breath so unds, mild expirat ory wheeze b/l,+ p ositive crackles b ilaterally more on the right side CV S: rrr, S1-S2 posi tive Abdomen: Soft , nontender, nondi stended, + bowel s ounds Extremities: moves extremities Neuro: Awake aler t oriented x3, no facial asymmetry, answers appropriat bre, moves extremi ties G/U: Pure wic k Skin: no rashes, warm an d dry Results & Data Results & Data Vital Signs (Past 12 Hours) Vital Signs Temp Pulse Pulse Resp BP Pulse Ox O2 Del Method 10/22/23 08:11 36.5 C 76 22 178/81 H 93 Nasal Cannula 10/22/23 08:06 High Flow Nasal Cannula 10/22/23 07:18 77 10/22/23 07:16 84 18 93 Nasal Cannula 10/22/23 03:14 155/74 H 10/22/23 03:10 37.1 C 77 18 174/71 H 100 High Flow Nasal Cannula 10/21/23 22:53 37.2 C 72 16 161/68 H 97 High Flow Nasal Cannula 10/21/23 22:44 74 10/21/23 22:00 High Flow Nasal Cannula O2 Flow Rate 10/22/23 08:11 11.0 10/22/23 08:06 11 10/22/23 07:18 10/22/23 07:16 11 10/22/23 03:14 10/22/23 03:10 15 10/21/23 22:53 15 10/21/23 22:44 10/21/23 22:00 15 Laboratory Results 10/21/23 10/21/23 10/21/23 Range/Units 19:07 16:12 13:03 Osmolality (280-300) mOsm/kg Troponin I High Sens 18.3 H D 27.2 H (0-14) pg/ml B-Natriuretic Peptide (0-100) pg/ml Urine Osmolality 383 L (500-800) mOsm/kg Ur Random Sodium 10 mmol/L Urine Legionella Ag Pending 10/21/23 10/21/23 Range/Units 09:30 08:20 Osmolality 279 L (280-300) mOsm/kg Troponin I High Sens (0-14) pg/ml B-Natriuretic Peptide 658 H (0-100) pg/ml Urine Osmolality (500-800) mOsm/kg Ur Random Sodium mmol/L Urine Legionella Ag Medications Administered Current Inpatient Medications Acetaminophen (Acetaminophen 325 Mg Tab) 650 mg PO Q8H PRN PRN Reason: Pain Stop: 11/20/23 12:01 Albuterol (Albut/Ipratrop 3mg/0.5mg Neb 3 Ml Vial) 3 ml NEB QIDR MEDARDO; Protocol Stop: 11/20/23 14:59 Last Admin: 10/22/23 07:16 Dose: 3 ml Albuterol (Albuterol 0.083% Nebu Soln 3 Ml Vial) 2.5 mg NEB Q6R PRN; Protocol PRN Reason: Wheezing Stop: 11/20/23 11:52 Amlodipine Besylate (Amlodipine Besylate 5 Mg Tab) 10 mg PO DAILY [facility] Stop: 11/20/23 11:52 Last Admin: 10/22/23 08:36 Dose: 10 mg Aripiprazole (Aripiprazole 5 Mg Tab) 5 mg PO DAILY [facility] Stop: 11/21/23 08:59 Last Admin: 10/22/23 08:36 Dose: 5 mg Aspirin (Aspirin 81 Mg Ectab) 81 mg PO DAILY [facility] Stop: 11/21/23 08:59 Last Admin: 10/22/23 08:36 Dose: 81 mg Atorvastatin Calcium (Atorvastatin 20 Mg Tab) 20 mg PO DAILY [facility]ARD[facility] Stop: 11/21/23 08:59 Last Admin: 10/22/23 08:36 Dose: 20 mg Benzonatate (Benzonatate 100 Mg Capsule) 100 mg PO TID PRN PRN Reason: cough Stop: 11/20/23 11:52 Last Admin: 10/21/23 20:17 Dose: 100 mg Carvedilol (Carvedilol 25 Mg Tab) 25 mg PO BID [facility] Stop: 11/20/23 11:52 Last Admin: 10/22/23 08:35 Dose: 25 mg Cetirizine HCl (Cetirizine Hcl 10 Mg Tablet) 10 mg PO DAILY [facility] Stop: 11/20/23 11:52 Last Admin: 10/22/23 08:35 Dose: 10 mg Clonazepam (Clonazepam 0.5 Mg Tab) 0.5 mg PO BID PRN PRN Reason: Anxiety Stop: 11/20/23 11:52 Last Admin: 10/21/23 20:17 Dose: 0.5 mg Furosemide (Furosemide 20 Mg Tab) 20 mg PO [id number] [facility] Stop: 11/20/23 16:59 Last Admin: 10/22/23 08:35 Dose: 20 mg Guaifenesin (Guaifenesin 600 Mg Tabcr) 1,200 mg PO Q12 [facility] Stop: 11/20/23 11:52 Last Admin: 10/22/23 08:35 Dose: 1,200 mg Heparin Sodium (Porcine) (Heparin Sod 5,000 Unit/0.5 Ml Vial) 5,000 units SQ Q8 [facility] Stop: 11/20/23 13:59 Last Admin: 10/22/23 06:09 Dose: 5,000 units Hydralazine HCl (Hydralazine Tab 50 Mg Tab) 50 mg PO TID [facility] Stop: 11/20/23 13:59 Last Admin: 10/22/23 08:35 Dose: 50 mg Losartan Potassium (Losartan Potassium 50 Mg Tab) 50 mg PO BID [facility] Stop: 11/20/23 20:59 Last Admin: 10/22/23 08:35 Dose: 50 mg Paroxetine HCl (Paroxetine Hcl 20 Mg Tab) 40 mg PO DAILY [facility] Stop: 11/21/23 08:59 Last Admin: 10/22/23 08:35 Dose: 40 mg Prednisone (Prednisone 20 Mg Tab) 40 mg PO DAILY [facility] Stop: 10/26/23 08:59 Last Admin: 10/22/23 08:35 Dose: 40 mg Terazosin HCl (Terazosin Hcl 1 Mg Cap) 2 mg PO HS [facility] Stop: 11/20/23 20:59 Last Admin: 10/21/23 20:14 Dose: 2 mg Umeclidinium [place] (Umeclidinium [place] 62.5mcg/Blister 7 Puffs/Inhaler) 1 puffs INH DAILY [facility] Stop: 11/20/23 11:52 Last Admin: 10/22/23 08:35 Dose: 1 puffs (4) Pneumonia Laterality: right Lung location: lower lobe of lung Pneumonia type: due to unspecified organism Qualified Code(s): J18.9 - Pneumonia, unspecified organism
[2023-10-22 09:42] LABS: Hematocrit (blood only) 33.6 % (37.0-47.0); Hemoglobin 11.3 g/dl (12.0-16.0); Mean Corpuscular Hgb Conc 33.6 g/dL (32.0-36.0); Mean Corpuscular Volume 86.4 fL (80.0-100.0); Mean Platelet Volume 10.4 fL (9.4-12.4); Platelet Count 206 K/uL (130-400); RDW Coefficient of Variation 14.4 % (11.5-14.5); RDW Standard Deviation 45.6 fL (36.4-46.3); Red Blood Count 3.89 M/uL (4.20-5.40); White Blood Count 12.75 K/ul (4.8-10.8)
[2023-10-22 10:09] LABS: BUN Creatinine Ratio 19.1 (10-20); Creatinine Clr Calc Pharmacy 44.6 ml/min; Est GFR (African American) 64.5 ml/min; Est GFR (Non-African American) 55.7 ml/min; Magnesium 2.1 mg/dl (1.7-2.4); Potassium 4.3 mmol/L (3.5-5.1)
[2023-10-22] MEDS: cefTRIAXone SODIUM 2,000 MG in DEXTROSE 5 % MINI-B 50 ML IV SCH (16:22)
[2023-10-22] MEDS: SODIUM CHLOR 7% 4 ML NEB NEB SCH (19:42)
[2023-10-22] MEDS: TERAZOSIN HCL 1 MG CAP PO SCH (20:57)
[2023-10-22] MEDS: clonazePAM 0.5 MG TAB PO PRN (21:06)
[2023-10-22] MEDS: BENZONATATE 100 MG CAPSULE PO PRN (21:15)
[2023-10-23 04:57] LABS: Hematocrit (blood only) 32.6 % (37.0-47.0); Hemoglobin 11.5 g/dl (12.0-16.0); Mean Corpuscular Hemoglobin 29.9 pg (25.0-34.0); Mean Corpuscular Hgb Conc 35.3 g/dL (32.0-36.0); Mean Corpuscular Volume 84.9 fL (80.0-100.0); Platelet Count 208 K/uL (130-400); RDW Coefficient of Variation 14.5 % (11.5-14.5); RDW Standard Deviation 45.1 fL (36.4-46.3); Red Blood Count 3.84 M/uL (4.20-5.40)
[2023-10-23 05:09] LABS: BUN Creatinine Ratio 25.8 (10-20); Calcium 8.8 mg/dl (8.6-10.3); Creatinine Clr Calc Pharmacy 39.6 ml/min; Est GFR (African American) 55.8 ml/min; Est GFR (Non-African American) 48.2 ml/min; Magnesium 2.2 mg/dl (1.7-2.4); Potassium 3.9 mmol/L (3.5-5.1)
[2023-10-23] MEDS: HEPARIN SOD 5,000 UNIT/0.5 ML VIAL SQ SCH ×3 (05:45→21:13)
--- NOTE | 2023-10-23 07:21 | Hospitalist Progress Note ---
Date of Service October 23, 2023 Assessment & Plan (1) Acute respiratory failure with hypoxia: (2) COPD exacerbation: (3) Elevated troponin: (4) Pneumonia: Plan: 58-year-old woman with history of COPD not on home oxygen, hypertension, vitamin D deficiency, osteoporosis, heterozygous for factor V Leiden mutation, hyperlipidemia, cigarette smoker, bipolar, lung cancer status post lung lobectomy who presents to the ER complaining of worsening shortness of breath, cough over the past few days. CXR noted asymmetric interstitial thickening in the right lung, suggestive of pulmonary edema, small right pleural effusion, right basilar opacity, emphysema. Labs notable for WBC of 20.94, hemoglobin of 11.8, sodium of 131, creatinine of 1.25 serum osmolality of 279, troponin of 19.7, BNP of 658. Respiratory PCR was negative Presentation suggestive of upper respiratory tract infection with COPD exacerbation. Got IV Solu-Medrol in ER. Review of prior hospitalization from 06/2023 also noted similar lung findings at the time CT PE did not show PE but noted asymmetric pulm edema, small right pleural effusion BNP is elevated but better than BNP during last hospitalization in 06/2023 (was 2238 then) Review of TTE in 06/2023 noted EF 50-55%, small circumferential pericardial effusion with moderate volume of fluid loculated adjacent to posterior lateral wall. No evidence of tamponade These suggests cause of hypoxia may be multifactorial -COPD exacerbation -Pneumonia -Pulm edema/Acute diastolic heart failure Trop is negative. EKG reviewed. NSR. No ST-T changes trop downtrended Tele monitor Procal is normal. Elevated WBC may be due to infection vs steroid at home. Pneumonia is possible, ceftriaxone (abx) initiated Continue prednisone Continue duonebs Continue oxygen supplementation and wean as tolerated. Currently down to 4L Continue ceftriaxone. Allergies to antibiotics (Erythromycin base/tetracycline/quinolones) Pulmonary medicine consulted - appreciate their input, hypertonic saline added. Also recommend repeat CT chest in 2 months. Patient does not seem volume overloaded on physical exam, will continue lasix for now Echo obtained -no regional wall motion abnormalities noted. LVEF 50 to 55%. Grade 1 diastolic dysfunction. There is a small circumferential pericardial effusion with no significant amount of focal fluid collection adjacent to the apical lateral apical posterior and anterior lou. There are no echocardiographic indications of cardiac tamponade. Compared to images obtained at the time of the prior study in June 2023, there is no significant interval change. (5) CKD (chronic kidney disease) stage 2, GFR 60-89 ml/min: (6) Hyponatremia: Plan: Na 131 Check serum osm, Uosm, Guera Cr is 1.25. Was 1.9 on 10/02/23 and 1.4 on 10/13/23 per [facility] records Was seen by Nephrology Dr Johnson on 10/19/23 (7) Essential hypertension: Plan: On multiple antihypertensives Continue home amlodipine, losartan, hydralazine, coreg Monitor BP (8) DVT prophylaxis: Plan: Hep Sq Code Status: Full Dispo: PCU Admission and Anticipated Discharge Date Admission Date: October 21, 2023 Subjective Pt seen in follow up of acute hypoxic resp. failure Currently laying in bed in NAD, + cough improved. Was on 11 L of suppl. O2 yesterday, currently down to 4L. Denies chest pain, abd. pain, n/v. no abd. pain Breathing seems somewhat improved from yesterday. Review of Systems Review of Systems: All systems reviewed & are unremarkable except as noted in Subjective Physical Exam Physical Exam: Physical Exam: Constitutional: t hin F in NAD, on s uppl. O2 HEENT: NC /AT, EOMI, PERRL R espiratory system: +course breath so unds, mild expirat ory wheeze b/l,+ p ositive crackles b ilaterally more on the right side CV S: rrr, S1-S2 posi tive Abdomen: Soft , nontender, nondi stended, + bowel s ounds Extremities: moves extremities Neuro: Awake aler t oriented x3, no facial asymmetry, answers appropriat bre, moves extremi ties G/U: Pure wic k Skin: no rashes, warm an d dry Results & Data Results & Data Vital Signs (Past 12 Hours) Vital Signs Temp Pulse Pulse Resp BP BP Pulse Ox 10/23/23 04:00 36.8 C 70 15 170/67 H 100 10/23/23 02:00 158/65 H 10/23/23 01:00 71 4 L 100 10/23/23 00:44 70 10/22/23 23:00 36.9 C 76 16 168/70 H 97 10/22/23 22:30 36.8 C 74 17 160/70 H 96 01/22/24 22:20 10/22/23 22:00 74 18 96 10/22/23 22:00 160/70 H 10/22/23 21:30 74 16 97 10/22/23 21:00 77 20 91 10/22/23 21:00 167/70 H 10/22/23 20:30 76 13 96 10/22/23 20:00 91 H 18 183/80 H 98 10/22/23 19:42 74 18 92 10/22/23 19:38 36.5 C 78 17 172/80 H 93 10/22/23 19:25 36.8 C 77 20 172/80 H O2 Del Method O2 Flow Rate 10/23/23 04:00 High Flow Nasal Cannula 10/23/23 02:00 10/23/23 01:00 10/23/23 00:44 10/22/23 23:00 High Flow Nasal Cannula 10/22/23 22:30 High Flow Nasal Cannula 10/22/23 22:20 High Flow Nasal Cannula 10/22/23 22:00 10/22/23 22:00 10/22/23 21:30 10/22/23 21:00 10/22/23 21:00 10/22/23 20:30 10/22/23 20:00 10/22/23 19:42 Nasal Cannula 10/22/23 19:38 High Flow Nasal Cannula 10/22/23 19:25 Laboratory Results 10/23/23 10/22/23 Range/Units 04:18 09:23 WBC 14.70 H 12.75 H (4.8-10.8) K/ul RBC 3.84 L 3.89 L (4.20-5.40) M/uL Hgb 11.5 L 11.3 L (12.0-16.0) g/dl Hct 32.6 L 33.6 L (37.0-47.0) % MCV 84.9 86.4 (80.0-100.0) fL MCH 29.9 29.0 (25.0-34.0) pg MCHC 35.3 33.6 (32.0-36.0) g/dL RDW Std Deviation 45.1 45.6 (36.4-46.3) fL RDW Coeff of Shanna 14.5 14.4 (11.5-14.5) % Plt Count 208 206 (130-400) K/uL MPV 11.0 10.4 (9.4-12.4) fL Sodium 131 L 131 L (136-145) mmol/L Potassium 3.9 4.3 (3.5-5.1) mmol/L Chloride 98 98 (98-107) mmol/L Carbon Dioxide 27 26 (21-32) mmol/L Anion Gap 6 7 (3-11) BUN 32 H 21 (6-23) mg/dl Creatinine 1.24 H 1.10 (0.6-1.2) mg/dl Est Cr Clr Drug Dosing 39.6 44.6 ml/min Est GFR ( Amer) 55.8 64.5 ml/min Est GFR (Non-Af Amer) 48.2 55.7 ml/min BUN/Creatinine Ratio 25.8 H 19.1 (10-20) Glucose 101 H 138 H (70-99(Fasting)) mg/dl Calcium 8.8 9.0 (8.6-10.3) mg/dl Phosphorus 4.0 4.0 (2.5-4.9) mg/dl Magnesium 2.2 2.1 (1.7-2.4) mg/dl Medications Administered Current Inpatient Medications Acetaminophen (Acetaminophen 325 Mg Tab) 650 mg PO Q8H PRN PRN Reason: Pain Stop: 11/20/23 12:01 Albuterol (Albut/Ipratrop 3mg/0.5mg Neb 3 Ml Vial) 3 ml NEB QIDR [facility]ARD[facility]; Protocol Stop: 11/20/23 14:59 Last Admin: 10/22/23 19:42 Dose: 3 ml Albuterol (Albuterol 0.083% Nebu Soln 3 Ml Vial) 2.5 mg NEB Q6R PRN; Protocol PRN Reason: Wheezing Stop: 11/20/23 11:52 Amlodipine Besylate (Amlodipine Besylate 5 Mg Tab) 10 mg PO DAILY [facility] Stop: 11/20/23 11:52 Last Admin: 10/22/23 08:36 Dose: 10 mg Aripiprazole (Aripiprazole 5 Mg Tab) 5 mg PO DAILY [facility] Stop: 11/21/23 08:59 Last Admin: 10/22/23 08:36 Dose: 5 mg Aspirin (Aspirin 81 Mg Ectab) 81 mg PO DAILY [facility] Stop: 11/21/23 08:59 Last Admin: 10/22/23 08:36 Dose: 81 mg Atorvastatin Calcium (Atorvastatin 20 Mg Tab) 20 mg PO DAILY [facility] Stop: 11/21/23 08:59 Last Admin: 10/22/23 08:36 Dose: 20 mg Benzonatate (Benzonatate 100 Mg Capsule) 100 mg PO TID PRN PRN Reason: cough Stop: 11/20/23 11:52 Last Admin: 10/22/23 21:15 Dose: 100 mg Carvedilol (Carvedilol 25 Mg Tab) 25 mg PO BID [facility] Stop: 11/20/23 11:52 Last Admin: 10/22/23 20:57 Dose: 25 mg Cetirizine HCl (Cetirizine Hcl 10 Mg Tablet) 10 mg PO DAILY [facility] Stop: 11/20/23 11:52 Last Admin: 10/22/23 08:35 Dose: 10 mg Clonazepam (Clonazepam 0.5 Mg Tab) 0.5 mg PO BID PRN PRN Reason: Anxiety Stop: 11/20/23 11:52 Last Admin: 10/22/23 21:06 Dose: 0.5 mg Furosemide (Furosemide 20 Mg Tab) 20 mg PO [id number] [facility] Stop: 11/20/23 16:59 Last Admin: 10/22/23 16:22 Dose: 20 mg Guaifenesin (Guaifenesin 600 Mg Tabcr) 1,200 mg PO Q12 [facility] Stop: 11/20/23 11:52 Last Admin: 10/22/23 20:56 Dose: 1,200 mg Heparin Sodium (Porcine) (Heparin Sod 5,000 Unit/0.5 Ml Vial) 5,000 units SQ Q8 [facility] Stop: 11/20/23 13:59 Last Admin: 10/23/23 05:45 Dose: 5,000 units Hydralazine HCl (Hydralazine Tab 50 Mg Tab) 50 mg PO TID [facility] Stop: 11/20/23 13:59 Last Admin: 10/22/23 20:57 Dose: 50 mg Ceftriaxone Sodium 2,000 mg/ (Dextrose) 50 mls @ 100 mls/hr IV Q24H [facility] Stop: 10/26/23 23:59 Last Infusion: 10/22/23 16:53 Dose: Infused Losartan Potassium (Losartan Potassium 50 Mg Tab) 50 mg PO BID [facility] Stop: 11/20/23 20:59 Last Admin: 10/22/23 20:58 Dose: 50 mg Paroxetine HCl (Paroxetine Hcl 20 Mg Tab) 40 mg PO DAILY [facility] Stop: 11/21/23 08:59 Last Admin: 10/22/23 08:35 Dose: 40 mg Prednisone (Prednisone 20 Mg Tab) 40 mg PO DAILY [facility] Stop: 10/26/23 08:59 Last Admin: 10/22/23 08:35 Dose: 40 mg Sodium Chloride (Sodium Chlor 7% 4 Ml Neb) 4 ml NEB BIDR [facility] Stop: 11/21/23 18:59 Last Admin: 10/22/23 19:42 Dose: 4 ml Terazosin HCl (Terazosin Hcl 1 Mg Cap) 2 mg PO HS [facility] Stop: 11/20/23 20:59 Last Admin: 10/22/23 20:57 Dose: 2 mg Umeclidinium Velpen (Umeclidinium Velpen 62.5mcg/Blister 7 Puffs/Inhaler) 1 puffs INH DAILY [facility] Stop: 11/20/23 11:52 Last Admin: 10/22/23 08:35 Dose: 1 puffs (4) Pneumonia Laterality: right Lung location: lower lobe of lung Pneumonia type: due to unspecified organism Qualified Code(s): J18.9 - Pneumonia, unspecified organism
--- NOTE | 2023-10-23 07:30 | Pulmonology Progress Note ---
Date of Service October 23, 2023 Assessment & Plan (1) Acute respiratory failure with hypoxia: (2) Acute CHF: Heart failure type: right-sided Qualified Code(s): I50.811 - Acute right heart failure (3) Atelectasis: (4) Pleural effusion: Plan 58-year-old female with a complex medical history including left upper lobectomy in 2014 for stage Ib adenocarcinoma, COPD, pericardial effusion and bipolar disorder who presents due to shortness of breath and cough. CT chest 10/21/2023 personally reviewed: Centrilobular emphysema appreciated bilaterally Left apical pleural scarring, s/p left upper lobectomy Consolidative process appreciated the right lower lobe with small right-sided pleural effusion Elevated left hemidiaphragm Right hilar lymphadenopathy 2D echo 10/22/2023: EF 50-55%, grade 1 diastolic dysfunction, circumferential pericardial effusion, no indication of cardiac tamponade --Acute hypoxic respiratory failure Multifactorial Combination of COPD as well as diastolic dysfunction BNP 658 Procalcitonin negative Nasal MRSA negative Respiratory bio fire negative for everything on 10/21/2023 --Pleural effusion Could be parapneumonic from pneumonia along with diastolic CHF Continue to monitor --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 Franklin --History of lung cancer S/p left upper lobectomy 2014 No chemo or radiation Plan: Chest x-ray shows mild improvement compared to the time of presentation Follow-up urine Legionella Complete the course of tapering prednisone over 5 days. Continue with antibiotics along with atypical coverage for total of 5 days Continue with diuretics to keep the patient negative balance Continue with Mucinex, add hypertonic saline nebulized along with flutter valve Will need repeat CT chest to be done in 2 months. The patient still has persistent right lower lobe pneumonia and then bronchoscopy could be considered Case was discussed with RN Please note the above document was generated using voice recognition software. It may contain grammatical, syntax or spelling errors.Any formal questions or concerns about the content, text or information contained within the body of this dictation should be directly addressed to the provider for clarification. Admission and Anticipated Discharge Date Admission Date: October 21, 2023 Subjective Patient seen and examined at bedside. No acute distress, notable symptoms overnight She was saturating 99% on 11 L nasal cannula while sleeping. I went down to 5 L and at the end of examination she was still saturating 94% Overall she says she is feeling better compared to yesterday. He is able to bring up phlegm. Mildly blood-tinged. Shortness of breath has improved. No chest pain Denies any headache, no nausea, no vomiting Fair appetite Review of Systems 2 Review of Systems: All systems reviewed & are unremarkable except as noted in Subjective Physical Exam 2 Physical Exam: Constitutional: No acute distress HEENT: EOMI, PERRLA Respiratory system: Decreased air entry bilaterally, minimal expiratory wheeze bilaterally, no rhonchi, positive crackles bilaterally more on the right side CVS: S1-S2 positive, accentuated P2 Abdomen: Soft, nontender, nondistended, positive bowel sounds x4 Extremities: +2 pulses bilaterally radialis/ dorsalis pedis, no cyanosis, no edema Neuro: Awake alert oriented x3 Psych: Normal mood and affect G/U: Pure wick Skin: no rashes, warm and dry Lymphatic: no cervical or axillary lymphadenopathy Results & Data Results & Data Vital Signs (Past 12 Hours) Vital Signs Temp Pulse Pulse Resp BP BP Pulse Ox 10/23/23 04:00 36.8 C 70 15 170/67 H 100 10/23/23 02:00 158/65 H 10/23/23 01:00 71 4 L 100 10/23/23 00:44 70 10/22/23 23:00 36.9 C 76 16 168/70 H 97 10/22/23 22:30 36.8 C 74 17 160/70 H 96 10/22/23 22:20 10/22/23 22:00 74 18 96 10/22/23 22:00 160/70 H 10/22/23 21:30 74 16 97 10/22/23 21:00 77 20 91 10/22/23 21:00 167/70 H 10/22/23 20:30 76 13 96 10/22/23 20:00 91 H 18 183/80 H 98 10/22/23 19:42 74 18 92 10/22/23 19:38 36.5 C 78 17 172/80 H 93 O2 Del Method O2 Flow Rate 10/23/23 04:00 High Flow Nasal Cannula 11 10/23/23 02:00 10/23/23 01:00 10/23/23 00:44 10/22/23 23:00 High Flow Nasal Cannula 11 10/22/23 22:30 High Flow Nasal Cannula 11 10/22/23 22:20 High Flow Nasal Cannula 11 10/22/23 22:00 10/22/23 22:00 10/22/23 21:30 10/22/23 21:00 10/22/23 21:00 10/22/23 20:30 10/22/23 20:00 10/22/23 19:42 Nasal Cannula 11 10/22/23 19:38 High Flow Nasal Cannula 11 Laboratory Results 10/23/23 04:18 10/23/23 04:18 PG Care Time/CCT Total # of Minutes Spent Total Time Spent with Patient: Total time spent is greater than 50% in coordination of care (as documented) at patient's floor/unit and/or counseling patient: Coding Level of Care Code 43659 SUB INP/OBS CARE 3/50MIN Diagnoses Acute respiratory failure with hypoxia J96.01 Acute right-sided congestive heart failure I50.811 Heart failure type: right-sided Atelectasis J98.11 Pleural effusion J90
[2023-10-23] MEDS: SODIUM CHLOR 7% 4 ML NEB NEB SCH ×2 (07:51→19:31)
[2023-10-23] MEDS: ALBUT/IPRATROP 3MG/0.5MG NEB 3 ML VIAL NEB SCH ×4 (07:51→19:31)
[2023-10-23] MEDS: ASPIRIN 81 MG ECTAB PO SCH (09:50)
[2023-10-23] MEDS: hydrALAZINE TAB 50 MG TAB PO SCH ×3 (09:50→19:46)
[2023-10-23] MEDS: LOSARTAN POTASSIUM 50 MG TAB PO SCH ×2 (09:50→19:47)
[2023-10-23] MEDS: carvediloL 25 MG TAB PO SCH ×2 (09:50→19:44)
[2023-10-23] MEDS: UMECLIDINIUM BROMIDE 62.5MCG/BLISTER 7 PUFFS/INHALER INH SCH (09:51)
[2023-10-23] MEDS: ATORVASTATIN 20 MG TAB PO SCH (09:51)
[2023-10-23] MEDS: predniSONE 20 MG TAB PO SCH (09:51)
[2023-10-23] MEDS: CETIRIZINE HCL 10 MG TABLET PO SCH (09:51)
[2023-10-23] MEDS: PARoxetine HCL 20 MG TAB PO SCH (09:51)
[2023-10-23] MEDS: amLODIPine BESYLATE 5 MG TAB PO SCH (09:51)
[2023-10-23] MEDS: ARIPiprazole 5 MG TAB PO SCH (10:03)
[2023-10-23] MEDS: guaiFENesin 600 MG TABCR PO SCH ×2 (10:03→19:45)
--- NOTE | 2023-10-23 10:41 | XRay Report ---
XR chest 1V portable CLINICAL HISTORY: f/u TECHNIQUE: Single frontal radiograph of the chest was obtained. Comparison: Comparison is made to chest radiograph 10/21/2023 FINDINGS: No lines and tubes are seen. The cardiomediastinal silhouette is normal. The lungs are clear. Small r ight pleural effusion. Blunting of the left costophrenic angle is chronic. IMPRESSION: Small right pleural effusion is again seen, underlying atelectasis is likely. ACT 112: Negative or not required by law. Electronically signed by: Kaveh Gordon M.D. 10/23/2023 10:39 AM
[2023-10-23] MEDS: cefTRIAXone SODIUM 2,000 MG in DEXTROSE 5 % MINI-B 50 ML IV SCH (15:42)
[2023-10-23] MEDS: TERAZOSIN HCL 1 MG CAP PO SCH (19:47)
[2023-10-23] MEDS: clonazePAM 0.5 MG TAB PO PRN (19:56)
[2023-10-23] MEDS ORDERED: hydrALAZINE HCL 20 MG/ML VIAL IV ONE (23:45)
[2023-10-24] MEDS ORDERED: cloNIDine HCL 0.1 MG TAB PO ONE (02:13)
[2023-10-24 05:31] LABS: Calcium 8.3 mg/dl (8.6-10.3); Magnesium 2.2 mg/dl (1.7-2.4); Potassium 4.1 mmol/L (3.5-5.1)
[2023-10-24 05:33] LABS: Hematocrit (blood only) 31.7 % (37.0-47.0); Hemoglobin 10.7 g/dl (12.0-16.0); Mean Corpuscular Hemoglobin 29.5 pg (25.0-34.0); Mean Corpuscular Hgb Conc 33.8 g/dL (32.0-36.0); Mean Corpuscular Volume 87.3 fL (80.0-100.0); Mean Platelet Volume 11.4 fL (9.4-12.4); Platelet Count 209 K/uL (130-400); RDW Coefficient of Variation 14.4 % (11.5-14.5); RDW Standard Deviation 46.7 fL (36.4-46.3); Red Blood Count 3.63 M/uL (4.20-5.40); White Blood Count 10.01 K/ul (4.8-10.8)
[2023-10-24 05:37] LABS: BUN Creatinine Ratio 25.5 (10-20); Creatinine Clr Calc Pharmacy 44.1 ml/min; Est GFR (African American) 67.5 ml/min; Est GFR (Non-African American) 58.2 ml/min; Phosphorus 3.1 mg/dl (2.5-4.9)
[2023-10-24] MEDS: HEPARIN SOD 5,000 UNIT/0.5 ML VIAL SQ SCH ×3 (06:07→19:42)
--- NOTE | 2023-10-24 07:19 | Pulmonology Progress Note ---
Date of Service October 24, 2023 Assessment & Plan (1) Acute respiratory failure with hypoxia: (2) Acute CHF: Heart failure type: right-sided Qualified Code(s): I50.811 - Acute right heart failure (3) Atelectasis: (4) Pleural effusion: Plan 58-year-old female with a complex medical history including left upper lobectomy in 2014 for stage Ib adenocarcinoma, COPD, pericardial effusion and bipolar disorder who presents due to shortness of breath and cough. CT chest 10/21/2023 personally reviewed: Centrilobular emphysema appreciated bilaterally Left apical pleural scarring, s/p left upper lobectomy Consolidative process appreciated the right lower lobe with small right-sided pleural effusion Elevated left hemidiaphragm Right hilar lymphadenopathy 2D echo 10/22/2023: EF 50-55%, grade 1 diastolic dysfunction, circumferential pericardial effusion, no indication of cardiac tamponade --Acute hypoxic respiratory failure Multifactorial Combination of COPD as well as diastolic dysfunction BNP 658 Procalcitonin negative Nasal MRSA negative Respiratory bio fire negative for everything on 10/21/2023 --Pleural effusion Could be parapneumonic from pneumonia along with diastolic CHF Continue to monitor --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 Franklin --History of lung cancer S/p left upper lobectomy 2014 No chemo or radiation Plan: Urine Legionella negative Given the increasing creatinine hold Lasix. Complete the course of tapering prednisone over 5 days. Continue with antibiotics along with atypical coverage for total of 5 days Continue with Mucinex, add hypertonic saline nebulized along with flutter valve. Add Mucomyst nebulized to her regimen Will need repeat CT chest to be done in 2 months. The patient still has persistent right lower lobe pneumonia and then bronchoscopy could be considered Case was discussed with RN Please note the above document was generated using voice recognition software. It may contain grammatical, syntax or spelling errors.Any formal questions or concerns about the content, text or information contained within the body of this dictation should be directly addressed to the provider for clarification. Admission and Anticipated Discharge Date Admission Date: October 21, 2023 Subjective Patient seen and examined at bedside. No acute distress, notable symptoms overnight She was saturating 95% on 3 days nasal cannula, I went down to 1 L. Overall she says she is feeling better. Has been able to bring up phlegm. Occasionally still difficult The hemoptysis is decreased in intensity Denied any chest pain Fair appetite No nausea vomiting Review of Systems 2 Review of Systems: All systems reviewed & are unremarkable except as noted in Subjective Physical Exam 2 Physical Exam: Constitutional: No acute distress HEENT: EOMI, PERRLA Respiratory system: Decreased air entry bilaterally, no wheeze, no rhonchi, positive crackles bilaterally more on the right side CVS: S1-S2 positive, accentuated P2 Abdomen: Soft, nontender, nondistended, positive bowel sounds x4 Extremities: +2 pulses bilaterally radialis/ dorsalis pedis, no cyanosis, no edema Neuro: Awake alert oriented x3 Psych: Normal mood and affect G/U: Pure wick Skin: no rashes, warm and dry Lymphatic: no cervical or axillary lymphadenopathy Results & Data Results & Data Vital Signs (Past 12 Hours) Vital Signs Temp Pulse Pulse Resp BP BP Pulse Ox 10/24/23 04:00 62 170/76 H 10/24/23 03:00 36.5 C 10/24/23 03:00 63 14 176/72 H 100 10/24/23 02:00 183/71 H 10/24/23 01:37 71 169/65 H 10/24/23 01:00 69 170/62 H 10/23/23 23:46 37.0 C 70 16 184/79 H 97 10/23/23 23:36 180/77 H 10/23/23 23:00 68 17 173/68 H 95 10/23/23 22:00 67 10/23/23 21:17 180/81 H 10/23/23 20:00 186/76 H 10/23/23 20:00 10/23/23 19:32 18 94 10/23/23 19:30 77 19 91 10/23/23 19:28 187/81 H 10/23/23 19:28 74 16 92 10/23/23 19:22 183/74 H 10/23/23 19:22 73 21 91 10/23/23 19:21 74 21 91 10/23/23 19:21 188/74 H O2 Del Method O2 Flow Rate 10/24/23 04:00 10/24/23 03:00 10/24/23 03:00 Nasal Cannula 5 10/24/23 02:00 10/24/23 01:37 10/24/23 01:00 10/23/23 23:46 Nasal Cannula 4 10/23/23 23:36 10/23/23 23:00 10/23/23 22:00 10/23/23 21:17 10/23/23 20:00 10/23/23 20:00 Nasal Cannula 5 10/23/23 19:32 Nasal Cannula 4 10/23/23 19:30 10/23/23 19:28 10/23/23 19:28 10/23/23 19:22 10/23/23 19:22 10/23/23 19:21 10/23/23 19:21 Laboratory Results 10/24/23 04:38 10/24/23 04:38 PG Care Time/CCT Total # of Minutes Spent Total Time Spent with Patient: Total time spent is greater than 50% in coordination of care (as documented) at patient's floor/unit and/or counseling patient: Coding Level of Care Code 07058 SUB INP/OBS CARE 2/35MIN Diagnoses Acute respiratory failure with hypoxia J96.01 Acute right-sided congestive heart failure I50.811 Heart failure type: right-sided Atelectasis J98.11 Pleural effusion J90
[2023-10-24] MEDS: ALBUT/IPRATROP 3MG/0.5MG NEB 3 ML VIAL NEB SCH ×4 (07:45→20:06)
[2023-10-24] MEDS: SODIUM CHLOR 7% 4 ML NEB NEB SCH ×2 (07:46→20:06)
[2023-10-24] MEDS: PARoxetine HCL 20 MG TAB PO SCH (08:10)
[2023-10-24] MEDS: guaiFENesin 600 MG TABCR PO SCH ×2 (08:10→19:38)
[2023-10-24] MEDS: ATORVASTATIN 20 MG TAB PO SCH (08:10)
[2023-10-24] MEDS: LOSARTAN POTASSIUM 50 MG TAB PO SCH ×2 (08:10→19:40)
[2023-10-24] MEDS: UMECLIDINIUM BROMIDE 62.5MCG/BLISTER 7 PUFFS/INHALER INH SCH (08:10)
[2023-10-24] MEDS: CETIRIZINE HCL 10 MG TABLET PO SCH (08:11)
[2023-10-24] MEDS: carvediloL 25 MG TAB PO SCH ×2 (08:11→19:35)
[2023-10-24] MEDS: ASPIRIN 81 MG ECTAB PO SCH (08:11)
[2023-10-24] MEDS: predniSONE 20 MG TAB PO SCH (08:11)
[2023-10-24] MEDS: amLODIPine BESYLATE 5 MG TAB PO SCH (08:11)
[2023-10-24] MEDS: hydrALAZINE TAB 50 MG TAB PO SCH ×3 (08:11→19:41)
[2023-10-24] MEDS: ARIPiprazole 5 MG TAB PO SCH (08:11)
[2023-10-24] MEDS: cefTRIAXone SODIUM 2,000 MG in DEXTROSE 5 % MINI-B 50 ML IV SCH (14:29)
[2023-10-24] MEDS ORDERED: ACETYLCYSTEINE 20% INHAL SOLN 4ML ***DISPENSED BY RESP. INH SCH (16:00)
--- NOTE | 2023-10-24 16:46 | Hospitalist Progress Note ---
Date of Service October 24, 2023 Assessment & Plan (1) Acute respiratory failure with hypoxia: (2) COPD exacerbation: (3) Elevated troponin: (4) Pneumonia: Plan: per previous hospitalist notes with addendum: 58-year-old woman with history of COPD not on home oxygen, hypertension, vitamin D deficiency, osteoporosis, heterozygous for factor V Leiden mutation, hyperlipidemia, cigarette smoker, bipolar, lung cancer status post lung lobectomy who presents to the ER complaining of worsening shortness of breath, cough over the past few days. CXR noted asymmetric interstitial thickening in the right lung, suggestive of pulmonary edema, small right pleural effusion, right basilar opacity, emphysema. Labs notable for WBC of 20.94, hemoglobin of 11.8, sodium of 131, creatinine of 1.25 serum osmolality of 279, troponin of 19.7, BNP of 658. Respiratory PCR was negative Presentation suggestive of upper respiratory tract infection with COPD exacerbation. Got IV Solu-Medrol in ER. Review of prior hospitalization from 06/2023 also noted similar lung findings at the time CT PE did not show PE but noted asymmetric pulm edema, small right pleural effusion BNP is elevated but better than BNP during last hospitalization in 06/2023 (was 2238 then) Review of TTE in 06/2023 noted EF 50-55%, small circumferential pericardial effusion with moderate volume of fluid loculated adjacent to posterior lateral wall. No evidence of tamponade These suggests cause of hypoxia may be multifactorial -COPD exacerbation -Pneumonia -Pulm edema/Acute diastolic heart failure Trop is negative. EKG reviewed. NSR. No ST-T changes trop downtrended Tele monitor Procal is normal. Elevated WBC may be due to infection vs steroid at home. Pneumonia is possible, ceftriaxone (abx) initiated Continue prednisone Continue duonebs Continue oxygen supplementation and wean as tolerated. Currently down to 4L Continue ceftriaxone. Allergies to antibiotics (Erythromycin base/tetracycline/quinolones) Pulmonary medicine consulted - appreciate their input, hypertonic saline added. Also recommend repeat CT chest in 2 months. Patient does not seem volume overloaded on physical exam, will continue lasix for now Echo obtained -no regional wall motion abnormalities noted. LVEF 50 to 55%. Grade 1 diastolic dysfunction. There is a small circumferential pericardial effusion with no significant amount of focal fluid collection adjacent to the apical lateral apical posterior and anterior lou. There are no echocardiographic indications of cardiac tamponade. Compared to images obtained at the time of the prior study in June 2023, there is no significant interval change. 10/24 Still on 2 L of oxygen nasal cannula Continue prednisone, DuoNeb, ceftriaxone Mucomyst added Lasix on hold due to elevated creatinine, creatinine now back to baseline, resume Lasix tomorrow (5) CKD (chronic kidney disease) stage 2, GFR 60-89 ml/min: (6) Hyponatremia: Plan: Na 131 Check serum osm, Uosm, Guera Cr is 1.25. Was 1.9 on 10/02/23 and 1.4 on 10/13/23 per [facility] records Was seen by Nephrology Dr Johnson on 10/19/23 Sodium 135 (7) Essential hypertension: Plan: On multiple antihypertensives Continue home amlodipine, losartan, hydralazine, coreg BP elevated likely secondary to COPD flare, Prednisone PRN Hydralazine (8) DVT prophylaxis: Plan: Hep Sq Code Status: Full Dispo: PCU Admission and Anticipated Discharge Date Admission Date: October 21, 2023 Subjective Follow-up for COPD exacerbation, etc. Resting in bed, comfortable, not in distress On 2 L of oxygen by nasal cannula States breathing is gradually improving but still feels breathing is tight Has dry cough No fevers or chills, chest pain No other new symptoms Review of Systems Review of Systems: all noted and negative except for above Physical Exam Physical Exam: General- oriented x 3, not in distress, speaks in sentences with no effort or a ccessory muscle use Eyes- anicteric Neck- no JVD Lungs-positive mild scattered wheeze bilaterally Heart- normal rate, regular rhythm; no murmurs Abdomen- normal bowel sounds, nondistended, soft, no tenderness Extremities- no pretibial edema, no calf tenderness Neuro- alert, oriented x 3; no gross focal neurologic deficits Skin- warm & dry Results & Data Results & Data Vital Signs (Past 12 Hours) Vital Signs Temp Pulse Pulse Resp BP BP Pulse Ox 10/24/23 15:13 36.4 C L 63 21 172/70 H 100 10/24/23 15:02 63 18 94 10/24/23 12:00 66 18 94 10/24/23 11:31 36.6 C 64 19 166/76 H 99 10/24/23 11:00 66 12 100 10/24/23 10:58 166/76 H 10/24/23 10:58 64 17 100 10/24/23 10:49 71 18 91 10/24/23 10:00 65 17 88 L 10/24/23 09:00 63 5 L 88 L 10/24/23 08:00 79 16 100 10/24/23 08:00 10/24/23 07:46 66 20 99 10/24/23 07:33 36.8 C 62 21 178/80 H 99 10/24/23 07:19 178/80 H 10/24/23 07:19 68 15 100 10/24/23 07:00 61 11 L 97 10/24/23 06:00 64 17 99 10/24/23 05:00 62 13 98 10/24/23 05:00 158/87 H O2 Del Method O2 Flow Rate 10/24/23 15:13 Nasal Cannula 1 10/24/23 15:02 Nasal Cannula 1 10/24/23 12:00 10/24/23 11:31 Nebulizer 10/24/23 11:00 10/24/23 10:58 10/24/23 10:58 10/24/23 10:49 Nasal Cannula 1 10/24/23 10:00 10/24/23 09:00 10/24/23 08:00 10/24/23 08:00 Nasal Cannula 1 10/24/23 07:46 Nasal Cannula 5 10/24/23 07:33 Nasal Cannula 5 10/24/23 07:19 10/24/23 07:19 10/24/23 07:00 10/24/23 06:00 10/24/23 05:00 10/24/23 05:00 all noted and reviewed including below (4) Pneumonia Laterality: right Lung location: lower lobe of lung Pneumonia type: due to unspecified organism Qualified Code(s): J18.9 - Pneumonia, unspecified organism
[2023-10-24] MEDS: hydroCHLOROthiazide 25 MG TAB PO SCH (17:48)
[2023-10-24] MEDS: clonazePAM 0.5 MG TAB PO PRN (19:36)
[2023-10-24] MEDS: TERAZOSIN HCL 1 MG CAP PO SCH (19:41)
[2023-10-24] MEDS: ACETYLCYSTEINE 20% INHAL SOLN 4ML ***DISPENSED BY RESP. INH SCH (20:05)
[2023-10-25 05:22] LABS: Basophils # (auto) 0.02 K/uL (0.00-0.20); Basophils % (auto) 0.2 %; Eosinophils # (auto) 0.01 K/uL (0.00-0.50); Eosinophils % (auto) 0.1 %; Hematocrit (blood only) 34.8 % (37.0-47.0); Hemoglobin 12.3 g/dl (12.0-16.0); Immature Granulocytes # (auto) 0.08 K/uL (0.01-0.20); Immature Granulocytes % (auto) 0.7 %; Lymphocytes # (auto) 2.84 K/uL (1.20-3.40); Lymphocytes % (auto) 23.4 %; Mean Corpuscular Hgb Conc 35.3 g/dL (32.0-36.0); Mean Corpuscular Volume 84.9 fL (80.0-100.0); Mean Platelet Volume 11.1 fL (9.4-12.4); Monocytes # (auto) 0.97 K/uL (0.11-0.59); Neutrophils # (auto) 8.22 K/uL (1.40-6.50); Neutrophils % (auto) 67.6 %; Platelet Count 230 K/uL (130-400); RDW Coefficient of Variation 14.5 % (11.5-14.5); RDW Standard Deviation 44.5 fL (36.4-46.3); White Blood Count 12.14 K/ul (4.8-10.8)
[2023-10-25 05:39] LABS: BUN Creatinine Ratio 27.6 (10-20); Calcium 8.7 mg/dl (8.6-10.3); Creatinine Clr Calc Pharmacy 44.5 ml/min; Est GFR (African American) 68.3 ml/min; Est GFR (Non-African American) 58.9 ml/min; Potassium 4.2 mmol/L (3.5-5.1)
[2023-10-25] MEDS: HEPARIN SOD 5,000 UNIT/0.5 ML VIAL SQ SCH ×3 (05:49→21:13)
[2023-10-25] MEDS: SODIUM CHLOR 7% 4 ML NEB NEB SCH ×2 (07:41→19:48)
[2023-10-25] MEDS: ALBUT/IPRATROP 3MG/0.5MG NEB 3 ML VIAL NEB SCH ×4 (07:41→19:48)
[2023-10-25] MEDS: ACETYLCYSTEINE 20% INHAL SOLN 4ML ***DISPENSED BY RESP. INH SCH ×2 (07:41→19:48)
--- NOTE | 2023-10-25 07:53 | Pulmonology Progress Note ---
Date of Service October 25, 2023 Assessment & Plan (1) Acute respiratory failure with hypoxia: (2) Acute CHF: Heart failure type: right-sided Qualified Code(s): I50.811 - Acute right heart failure (3) Atelectasis: (4) Pleural effusion: Plan 58-year-old female with a complex medical history including left upper lobectomy in 2014 for stage Ib adenocarcinoma, COPD, pericardial effusion and bipolar disorder who presents due to shortness of breath and cough. CT chest 10/21/2023 personally reviewed: Centrilobular emphysema appreciated bilaterally Left apical pleural scarring, s/p left upper lobectomy Consolidative process appreciated the right lower lobe with small right-sided pleural effusion Elevated left hemidiaphragm Right hilar lymphadenopathy 2D echo 10/22/2023: EF 50-55%, grade 1 diastolic dysfunction, circumferential pericardial effusion, no indication of cardiac tamponade --Acute hypoxic respiratory failure Multifactorial Combination of COPD as well as diastolic dysfunction BNP 658 Procalcitonin negative Nasal MRSA negative Respiratory bio fire negative for everything on 10/21/2023 Urine Legionella negative --Pleural effusion Could be parapneumonic from pneumonia along with diastolic CHF Continue to monitor --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 Franklin --History of lung cancer S/p left upper lobectomy 2014 No chemo or radiation Plan: Okay to resume Lasix 40 mg on a daily basis given the creatinine has normalized Complete the course of tapering prednisone over 5 days. Continue with antibiotics along with atypical coverage for total of 5 days Continue with Mucinex, hypertonic saline nebulized, nebulized Mucomyst along with flutter valve given at home Will need repeat CT chest to be done in 2 months. The patient still has persistent right lower lobe pneumonia and then bronchoscopy could be considered Case was discussed with RN No further recommendation from pulmonary perspective, will sign off Please call directly with any questions Please note the above document was generated using voice recognition software. It may contain grammatical, syntax or spelling errors.Any formal questions or concerns about the content, text or information contained within the body of this dictation should be directly addressed to the provider for clarification. Admission and Anticipated Discharge Date Admission Date: October 21, 2023 Subjective Patient seen and examined at bedside. No acute distress, no adverse events overnight Was saturating 91-92% on room air. Has been doing well when it comes to her breathing. Coughing up easily still having mild blood-tinged phlegm which is decreased in intensity and frequency Fair appetite, no nausea vomiting Review of Systems 2 Review of Systems: All systems reviewed & are unremarkable except as noted in Subjective Physical Exam 2 Physical Exam: Constitutional: No acute distress HEENT: EOMI, PERRLA Respiratory system: Decreased air entry bilaterally, no wheeze, no rhonchi, positive crackles bilaterally more on the right side CVS: S1-S2 positive, accentuated P2 Abdomen: Soft, nontender, nondistended, positive bowel sounds x4 Extremities: +2 pulses bilaterally radialis/ dorsalis pedis, no cyanosis, no edema Neuro: Awake alert oriented x3 Psych: Normal mood and affect G/U: Pure wick Skin: no rashes, warm and dry Lymphatic: no cervical or axillary lymphadenopathy Results & Data Results & Data Vital Signs (Past 12 Hours) Vital Signs Temp Pulse Resp BP Pulse Ox O2 Del Method O2 Flow Rate 10/25/23 07:42 70 18 94 Room Air 10/25/23 03:54 36.7 C 66 20 168/85 H 94 Room Air 10/24/23 23:00 36.9 C 70 18 165/71 H 94 Nasal Cannula 1 10/24/23 20:05 72 18 98 Nasal Cannula 1 10/24/23 20:00 Nasal Cannula 1 Laboratory Results 10/25/23 05:04 10/25/23 05:04 PG Care Time/CCT Total # of Minutes Spent Total Time Spent with Patient: Total time spent is greater than 50% in coordination of care (as documented) at patient's floor/unit and/or counseling patient: Coding Level of Care Code 37741 SUB INP/OBS CARE 2/35MIN Diagnoses Acute respiratory failure with hypoxia J96.01 Acute right-sided congestive heart failure I50.811 Heart failure type: right-sided Atelectasis J98.11 Pleural effusion J90
[2023-10-25] MEDS: guaiFENesin 600 MG TABCR PO SCH ×2 (09:14→19:59)
[2023-10-25] MEDS: hydroCHLOROthiazide 25 MG TAB PO SCH (09:14)
[2023-10-25] MEDS: PARoxetine HCL 20 MG TAB PO SCH (09:14)
[2023-10-25] MEDS: hydrALAZINE TAB 50 MG TAB PO SCH ×3 (09:15→20:00)
[2023-10-25] MEDS: carvediloL 25 MG TAB PO SCH ×2 (09:16→19:58)
[2023-10-25] MEDS: predniSONE 20 MG TAB PO SCH (09:16)
[2023-10-25] MEDS: CETIRIZINE HCL 10 MG TABLET PO SCH (09:16)
[2023-10-25] MEDS: LOSARTAN POTASSIUM 50 MG TAB PO SCH ×2 (09:16→20:00)
[2023-10-25] MEDS: amLODIPine BESYLATE 5 MG TAB PO SCH (09:16)
[2023-10-25] MEDS: ATORVASTATIN 20 MG TAB PO SCH (09:16)
[2023-10-25] MEDS: ARIPiprazole 5 MG TAB PO SCH (09:17)
[2023-10-25] MEDS: UMECLIDINIUM BROMIDE 62.5MCG/BLISTER 7 PUFFS/INHALER INH SCH (09:17)
[2023-10-25] MEDS: ASPIRIN 81 MG ECTAB PO SCH (09:17)
[2023-10-25] MEDS: cefTRIAXone SODIUM 2,000 MG in DEXTROSE 5 % MINI-B 50 ML IV SCH (13:36)
[2023-10-25] MEDS ORDERED: FUROSEMIDE 40 MG TAB PO SCH ×2 (14:45→17:00)
--- NOTE | 2023-10-25 18:29 | Hospitalist Progress Note ---
Date of Service October 25, 2023 Assessment & Plan (1) Acute respiratory failure with hypoxia: (2) COPD exacerbation: (3) Elevated troponin: (4) Pneumonia: Plan: per previous hospitalist notes with addendum: 58-year-old woman with history of COPD not on home oxygen, hypertension, vitamin D deficiency, osteoporosis, heterozygous for factor V Leiden mutation, hyperlipidemia, cigarette smoker, bipolar, lung cancer status post lung lobectomy who presents to the ER complaining of worsening shortness of breath, cough over the past few days. CXR noted asymmetric interstitial thickening in the right lung, suggestive of pulmonary edema, small right pleural effusion, right basilar opacity, emphysema. Labs notable for WBC of 20.94, hemoglobin of 11.8, sodium of 131, creatinine of 1.25 serum osmolality of 279, troponin of 19.7, BNP of 658. Respiratory PCR was negative Presentation suggestive of upper respiratory tract infection with COPD exacerbation. Got IV Solu-Medrol in ER. Review of prior hospitalization from 06/2023 also noted similar lung findings at the time CT PE did not show PE but noted asymmetric pulm edema, small right pleural effusion BNP is elevated but better than BNP during last hospitalization in 06/2023 (was 2238 then) Review of TTE in 06/2023 noted EF 50-55%, small circumferential pericardial effusion with moderate volume of fluid loculated adjacent to posterior lateral wall. No evidence of tamponade These suggests cause of hypoxia may be multifactorial -COPD exacerbation -Pneumonia -Pulm edema/Acute diastolic heart failure Trop is negative. EKG reviewed. NSR. No ST-T changes trop downtrended Tele monitor Procal is normal. Elevated WBC may be due to infection vs steroid at home. Pneumonia is possible, ceftriaxone (abx) initiated Continue prednisone Continue duonebs Continue oxygen supplementation and wean as tolerated. Currently down to 4L Continue ceftriaxone. Allergies to antibiotics (Erythromycin base/tetracycline/quinolones) Pulmonary medicine consulted - appreciate their input, hypertonic saline added. Also recommend repeat CT chest in 2 months. Patient does not seem volume overloaded on physical exam, will continue lasix for now Echo obtained -no regional wall motion abnormalities noted. LVEF 50 to 55%. Grade 1 diastolic dysfunction. There is a small circumferential pericardial effusion with no significant amount of focal fluid collection adjacent to the apical lateral apical posterior and anterior lou. There are no echocardiographic indications of cardiac tamponade. Compared to images obtained at the time of the prior study in June 2023, there is no significant interval change. 10/24 Still on 2 L of oxygen nasal cannula Continue prednisone, DuoNeb, ceftriaxone Mucomyst added Lasix on hold due to elevated creatinine, creatinine now back to baseline, resume Lasix tomorrow 10/25 Weaned off oxygen Continue prednisone, DuoNeb, ceftriaxone, Mucomyst Lasix resumed, increased to 40 mg p.o. twice daily to also address uncontrolled hypertension (5) CKD (chronic kidney disease) stage 2, GFR 60-89 ml/min: (6) Hyponatremia: Plan: Na 131 Check serum osm, Uosm, Guera Cr is 1.25. Was 1.9 on 10/02/23 and 1.4 on 10/13/23 per [facility] records Was seen by Nephrology Dr Johnson on 10/19/23 Sodium 135 Monitor BMP (7) Essential hypertension: Plan: On multiple antihypertensives Continue home amlodipine, losartan, hydralazine, coreg BP elevated likely secondary to COPD flare, Prednisone Lasix 40mg BID PRN Hydralazine (8) DVT prophylaxis: Plan: Hep Sq Code Status: Full Dispo: pending Admission and Anticipated Discharge Date Admission Date: October 21, 2023 Subjective Follow-up for COPD exacerbation, etc. Seen resting in bed, comfortable, not in distress off oxygen supplementation States she feels better today compared to yesterday Breathing is better No headache, dizziness, palpitations, etc. No other new symptoms Review of Systems Review of Systems: all noted and negative except for above Physical Exam Physical Exam: General- oriented x 3, not in distress, speaks in sentences with no effort or accessory muscle use Eyes- anicteric Neck- no JVD Lungs- clear breath sounds bilaterally, no crackles or wheezing Heart- normal rate, regular rhythm; no murmurs Abdomen- normal bowel sounds, nondistended, soft, nontender Extremities- no pretibial edema, no calf tenderness Neuro- alert, oriented x 3; no gross focal neurologic deficits Skin- warm & dry Results & Data Results & Data Vital Signs (Past 12 Hours) Vital Signs Temp Pulse Resp BP Pulse Ox O2 Del Method 10/25/23 16:06 80 22 93 Room Air 10/25/23 15:13 36.5 C 60 17 177/78 H 94 Room Air 10/25/23 11:45 Room Air 10/25/23 11:15 36.7 C 65 20 172/78 H 96 Room Air 10/25/23 11:05 68 97 10/25/23 08:00 37.1 C 64 20 191/85 H 95 Room Air 10/25/23 08:00 Room Air 10/25/23 07:42 70 18 94 Room Air (4) Pneumonia Laterality: right Lung location: lower lobe of lung Pneumonia type: due to unspecified organism Qualified Code(s): J18.9 - Pneumonia, unspecified organism
[2023-10-25] MEDS: clonazePAM 0.5 MG TAB PO PRN (19:46)
[2023-10-25] MEDS: TERAZOSIN HCL 1 MG CAP PO SCH (20:01)
--- NOTE | 2023-10-26 03:54 | Communication Note ---
Date of Service: October 26, 2023 Made aware by RN of uncontrolled blood pressure. SBP 160-190s the last 24 hours on multiple antihypertensive medications. Heart rate 60s Patient asymptomatic as per RN. AP Uncontrolled hypertension Labetalol in place of Coreg for now Will relay to AM provider.
[2023-10-26] MEDS ORDERED: LABETALOL HCL 100 MG TAB PO ONE (04:15)
[2023-10-26] MEDS: HEPARIN SOD 5,000 UNIT/0.5 ML VIAL SQ SCH ×3 (05:09→21:29)
[2023-10-26 07:01] LABS: Calcium 9.1 mg/dl (8.6-10.3); Est GFR (Non-African American) 56.9 ml/min; Potassium 3.9 mmol/L (3.5-5.1)
[2023-10-26] MEDS: ACETYLCYSTEINE 20% INHAL SOLN 4ML ***DISPENSED BY RESP. INH SCH ×2 (07:26→20:23)
[2023-10-26] MEDS: SODIUM CHLOR 7% 4 ML NEB NEB SCH ×2 (07:26→20:22)
[2023-10-26] MEDS: ALBUT/IPRATROP 3MG/0.5MG NEB 3 ML VIAL NEB SCH ×4 (07:26→20:23)
[2023-10-26] MEDS: UMECLIDINIUM BROMIDE 62.5MCG/BLISTER 7 PUFFS/INHALER INH SCH (08:01)
[2023-10-26] MEDS: ARIPiprazole 5 MG TAB PO SCH (08:01)
[2023-10-26] MEDS: amLODIPine BESYLATE 5 MG TAB PO SCH (08:02)
[2023-10-26] MEDS: LOSARTAN POTASSIUM 50 MG TAB PO SCH ×2 (08:02→20:18)
[2023-10-26] MEDS: ATORVASTATIN 20 MG TAB PO SCH (08:02)
[2023-10-26] MEDS: ASPIRIN 81 MG ECTAB PO SCH (08:02)
[2023-10-26] MEDS: hydrALAZINE TAB 50 MG TAB PO SCH ×3 (08:02→20:15)
[2023-10-26] MEDS: PARoxetine HCL 20 MG TAB PO SCH (08:02)
[2023-10-26] MEDS: CETIRIZINE HCL 10 MG TABLET PO SCH (08:02)
[2023-10-26] MEDS: guaiFENesin 600 MG TABCR PO SCH ×2 (08:02→20:17)
[2023-10-26] MEDS: SPIRONOLACTONE 25 MG TAB PO SCH (11:12)
--- NOTE | 2023-10-26 11:31 | Nephrology Consultation ---
Date of Consultation October 26, 2023 Assessment & Plan (1) Respiratory failure with hypoxia: Seems to have recovered from that and is now on RA. Follwed by Pulm. Also had some degree of CHF and viral Infection. (2) Hypertensive urgency: She does have true issue with HTN urgency. has been in Hospital now for 5 days now and BP is still very high despite getting meds --on many. However has not been getting Lasix which can make a huge difference and in lot of HTN bp is never controlled unless they are on adequate diuretics. Would like to restart lasix at 20 bid and also add Aldactone 50. Not sure we need both labetalol and coreg. Can d/c Labetalol. Also do renal Artery duplex--She had renal US for worsening Creat. Creat went up to 1.9 but then most recent was 1.4 as of 10/13/2023. previously creat was in the 1.1 to 1.4 range I saw her in clinic just recently last week for HTN urgency. She has mother who is in Hospice and she is very worried because of that. She did not want to be enrolled in the [employer] HTN monitoring program as outpt lot of stress with Mother on Hospice. History of Present Illness Reason for Consultation: HTN urgency/Resistant HTN Attending Physician: Vinh Pham MD History of Present Illness 58/F with advanced COPD not on home oxygen, hypertension, vitamin D deficiency, osteoporosis, heterozygous for factor V Leiden mutation, hyperlipidemia, cigarette smoker, bipolar, lung cancer status post lung lobectomy who presented to the ER 5 days ago on oct complaining of worsening shortness of breath, cough over the past few days.She was hypoxic. She was having upper respiratory symptoms sore throat, rhinorrhea, sinus congestion and dry cough pre admission. Patient called into her doctor's office and was prescribed a rescue kit which she started but did not get better. Denies any fevers, nausea, vomiting, palpitation, chest pain, abdominal pain, diarrhea, constipation, dysuria, frequency, urgency, hematuria Patient was hypoxic to 70s on room air on presentation and was put on oxygen mask. She had decreased breath sounds with wheezing. Was started on Solu- Medrol IV and neb treatment with some improvement. Denies alcohol or illicit drug use. She has severe HTN--even inpt her BP is not controlled despite being on so many meds. lasix was held for few days because of Slight rise in creat. On amlo 10, Losartan 50 bid, Terazosin, hydralazine, Coreg and Now labetolol also ( this is new as inpt). I saw her in clinic just recently for HTN urgency. She has mother who is in Hospice and she is very worried because of that. She did not wnat to be enrolled in the remote [facility] HTN monitoring program. Physical Exam Physical Exam: Constitutional: very frail. Looks older than age. mild resp distress Neck:Supple. No JVD Respiratory: Mild expiratory wheeze. Diminished at the right lung base. Cardiovascular: Regular rate and rhythm. No murmurs. No edema. Gastrointestinal: Normal bowel sounds, soft, nontender and nondistended. No hepatosplenomegaly noted. Musculoskeletal: No cyanosis. Patient is able to move all extremities. Strength is 5 out of 5 in the upper and lower extremities. Skin: No rashes, warm dry and intact. Neurologic: No obvious focal neurological deficits seen. Psychiatric: Alert and oriented x3 with a euthymic affect. Allergies Allergy/AdvReac Type Severity Reaction Status Date / Time Bactrim Allergy Intermediate HIVES Verified 07/26/15 07:15 Sulfa (Sulfonamide Allergy Intermediate BACTRIM- Verified 07/06/23 11:10 Antibiotics) HIVES sulfamethoxazole Allergy Intermediate HIVES Verified 07/06/23 11:10 trimethoprim Allergy Intermediate HIVES Verified 07/06/23 11:10 erythromycin base Allergy Unknown Verified 07/06/23 11:10 metaxalone Allergy Unknown Verified 07/06/23 11:10 morphine Allergy Unknown . Verified 07/06/23 11:10 neomycin Allergy Unknown Verified 07/06/23 11:10 Quinolones Allergy Unknown Verified 07/06/23 11:10 tetracycline Allergy Unknown Verified 07/06/23 11:10 amoxicillin [From Augmentin] Allergy Verified 07/06/23 11:10 clavulanic acid Allergy Verified 07/06/23 11:10 [From Augmentin] umeclidinium Allergy Verified 07/06/23 11:10 [From Anoro Ellipta] vilanterol Allergy Verified 07/06/23 11:10 [From Anoro Ellipta] moxifloxacin AdvReac Unknown hives Verified 07/06/23 11:10 Home Medications Medication Instructions Recorded Confirmed Type aripiprazole 5 mg tablet (Abilify) 5 mg PO DAILY 12/03/19 10/21/23 History aspirin 81 mg tablet 81 mg PO DAILY 02/04/20 10/21/23 History cetirizine 10 mg tablet 10 mg PO DAILY 02/04/20 10/21/23 History clonazepam 0.5 mg tablet 0.5 mg PO BID PRN Anxiety 02/04/20 10/21/23 History amlodipine 10 mg tablet 10 mg PO DAILY 08/01/21 10/21/23 History losartan 50 mg tablet 50 mg PO BID 08/01/21 10/21/23 History albuterol sulfate 90 mcg/actuation 2 puff inhalation Q4H PRN 02/20/22 10/21/23 Rx aerosol inhaler (Ventolin HFA) shortness of breath ,coughing or wheezing #18 grams atorvastatin 20 mg tablet 20 mg PO DAILY 06/11/23 10/21/23 History carvedilol 25 mg tablet 25 mg PO BID 06/11/23 10/21/23 History paroxetine HCl 40 mg tablet 40 mg PO DAILY 06/11/23 10/21/23 History albuterol sulfate 2.5 mg/3 mL 2.5 mg (3 mL) inhalation Q4H PRN 06/15/23 10/21/23 Rx (0.083 %) solution for nebulization shortness of breath or wheezing #180 mL benzonatate 100 mg capsule 100 mg PO TID PRN cough #20 caps 06/15/23 10/21/23 Rx furosemide 20 mg tablet 20 mg PO BID #60 tabs 06/15/23 10/21/23 Rx hydralazine 50 mg tablet 50 mg PO TID #90 tabs 06/15/23 10/21/23 Rx terazosin 1 mg capsule 2 mg (2 x 1 mg) PO HS #30 caps 06/15/23 10/21/23 Rx umeclidinium 62.5 mcg/actuation 1 inh inhalation DAILY #90 puffs 07/10/23 10/21/23 Rx blister powder for inhalation (Incruse Ellipta) fluticasone propionate 50 1 spray intranasal BID #18.2 mL 10/19/23 10/21/23 Rx mcg/actuation nasal spray,suspension (Flonase Allergy Relief) acetaminophen 650 mg 650 mg PO Q8H PRN Pain 10/21/23 10/21/23 History tablet,extended release alendronate 70 mg tablet 70 mg PO WK 10/21/23 10/21/23 History ergocalciferol (vitamin D2) 1,250 1,250 mcg PO WK 10/21/23 10/21/23 History mcg (50,000 unit) capsule (Vitamin D2) Patient History Medical History Pleural effusion Atelectasis Acute CHF Anaphylaxis History of temporomandibular joint disorder GERD (gastroesophageal reflux disease) Bipolar disorder Essential hypertension Breast fibroadenoma Dyslipidemia 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 Malignant neoplasm of upper lobe, left bronchus or lung Pulmonary emphysema Pulmonary nodule Arthritis Allergic rhinitis Lumbar stenosis (09/25/14) Surgical History History of D&C History of lumbar surgery H/O breast surgery H/O splenectomy Family History Father Hypertension Mother Lung cancer Other Breast cancer COPD (chronic obstructive pulmonary disease) Diabetes Social History Smoking Status: Current every day smoker Tobacco Type: Cigarettes Cigarettes Per Day: 3; Tobacco Cessation Education Requested by Patient: No Hx Alcohol Use: Yes Hx Substance Use: No Preferred Language: Latvian Communication Ability: Effective [employer] Superintendent Required: No Beliefs That Will Affect Care: None marital status: Current Living Situation: Significant Other current occupational status: disabled Feels Safe at Home: Yes Safety Concerns: Feels Safe At This Time Assistive Devices: Nebulizer Results & Data Vital Signs (Past 12 Hours) Vital Signs Temp Pulse Pulse Resp BP BP Pulse Ox 10/26/23 11:07 70 18 93 10/26/23 09:25 10/26/23 07:49 36.5 C 69 22 187/86 H 94 10/26/23 07:28 66 18 98 10/26/23 02:55 36.2 C L 60 20 174/79 H 96 10/26/23 00:36 66 O2 Del Method 10/26/23 11:07 Room Air 10/26/23 09:25 Room Air 10/26/23 07:49 Room Air 10/26/23 07:28 Room Air 10/26/23 02:55 Room Air 10/26/23 00:36
--- NOTE | 2023-10-26 14:09 | Hospitalist Progress Note ---
Date of Service October 26, 2023 Assessment & Plan (1) Acute respiratory failure with hypoxia: (2) COPD exacerbation: (3) Elevated troponin: (4) Pneumonia: Plan: per previous hospitalist notes with addendum: 58-year-old woman with history of COPD not on home oxygen, hypertension, vitamin D deficiency, osteoporosis, heterozygous for factor V Leiden mutation, hyperlipidemia, cigarette smoker, bipolar, lung cancer status post lung lobectomy who presents to the ER complaining of worsening shortness of breath, cough over the past few days. CXR noted asymmetric interstitial thickening in the right lung, suggestive of pulmonary edema, small right pleural effusion, right basilar opacity, emphysema. Labs notable for WBC of 20.94, hemoglobin of 11.8, sodium of 131, creatinine of 1.25 serum osmolality of 279, troponin of 19.7, BNP of 658. Respiratory PCR was negative Presentation suggestive of upper respiratory tract infection with COPD exacerbation. Got IV Solu-Medrol in ER. Review of prior hospitalization from 06/2023 also noted similar lung findings at the time CT PE did not show PE but noted asymmetric pulm edema, small right pleural effusion BNP is elevated but better than BNP during last hospitalization in 06/2023 (was 2238 then) Review of TTE in 06/2023 noted EF 50-55%, small circumferential pericardial effusion with moderate volume of fluid loculated adjacent to posterior lateral wall. No evidence of tamponade These suggests cause of hypoxia may be multifactorial -COPD exacerbation -Pneumonia -Pulm edema/Acute diastolic heart failure Trop is negative. EKG reviewed. NSR. No ST-T changes trop downtrended Tele monitor Procal is normal. Elevated WBC may be due to infection vs steroid at home. Pneumonia is possible, ceftriaxone (abx) initiated Continue prednisone Continue duonebs Continue oxygen supplementation and wean as tolerated. Currently down to 4L Continue ceftriaxone. Allergies to antibiotics (Erythromycin base/tetracycline/quinolones) Pulmonary medicine consulted - appreciate their input, hypertonic saline added. Also recommend repeat CT chest in 2 months. Patient does not seem volume overloaded on physical exam, will continue lasix for now Echo obtained -no regional wall motion abnormalities noted. LVEF 50 to 55%. Grade 1 diastolic dysfunction. There is a small circumferential pericardial effusion with no significant amount of focal fluid collection adjacent to the apical lateral apical posterior and anterior lou. There are no echocardiographic indications of cardiac tamponade. Compared to images obtained at the time of the prior study in June 2023, there is no significant interval change. 10/24 Still on 2 L of oxygen nasal cannula Continue prednisone, DuoNeb, ceftriaxone Mucomyst added Lasix on hold due to elevated creatinine, creatinine now back to baseline, resume Lasix tomorrow 10/25 Weaned off oxygen Continue prednisone, DuoNeb, ceftriaxone, Mucomyst Lasix resumed, increased to 40 mg p.o. twice daily to also address uncontrolled hypertension 10/26 Respiratory status stable Off oxygen supplement Completed prednisone course (5) CKD (chronic kidney disease) stage 2, GFR 60-89 ml/min: Plan: Stable next (6) Hypertensive urgency: Plan: Nephrology service consulted Lasix 40 mg p.o. twice daily and spironolactone 50 mg daily started Renal Doppler ultrasound ordered Monitor closely (7) Hyponatremia: Plan: Na 131 Check serum osm, Uosm, Guera Cr is 1.25. Was 1.9 on 10/02/23 and 1.4 on 10/13/23 per [facility] records Was seen by Nephrology Dr Johnson on 10/19/23 Sodium 135 Monitor BMP (8) Essential hypertension: Plan: On multiple antihypertensives Continue home amlodipine, losartan, hydralazine, coreg BP elevated likely secondary to COPD flare, Prednisone Lasix 40mg BID PRN Hydralazine Management per above (9) DVT prophylaxis: Plan: Hep Sq Code Status: Full Dispo: Anticipate discharge to home when blood pressure has been stabilized Admission and Anticipated Discharge Date Admission Date: October 21, 2023 Subjective Follow-up for COPD exacerbation, hypertension, etc. Seen resting in bed, comfortable, not in distress Off oxygen supplementation States she feels better overall No cough, shortness of breath Denies headache, dizziness, chest pain, shortness of breath No other new symptoms Review of Systems Review of Systems: all noted and negative except for above Physical Exam Physical Exam: General- oriented x 3, not in distress, speaks in sentences with no effort or accessory muscle use Eyes- anicteric Neck- no JVD Lungs- clear breath sounds bilaterally, no rales/wheezes Heart- normal rate, regular rhythm; no murmurs Abdomen- normal bowel sounds, nondistended, soft, nontender Extremities- no pretibial edema, no calf tenderness Neuro- alert, oriented x 3; no gross focal neurologic deficits Skin- warm & dry Results & Data Results & Data Vital Signs (Past 12 Hours) Vital Signs Temp Pulse Resp BP BP Pulse Ox O2 Del Method 10/26/23 11:45 36.9 C 65 19 147/65 H 96 Room Air 10/26/23 11:07 70 18 93 Room Air 10/26/23 09:25 Room Air 10/26/23 07:49 36.5 C 69 22 187/86 H 94 Room Air 10/26/23 07:28 66 18 98 Room Air 10/26/23 02:55 36.2 C L 60 20 174/79 H 96 Room Air (4) Pneumonia Laterality: right Lung location: lower lobe of lung Pneumonia type: due to unspecified organism Qualified Code(s): J18.9 - Pneumonia, unspecified organism
--- NOTE | 2023-10-26 14:48 | Ultrasound Report ---
US duplex renal artery CLINICAL HISTORY: Resistant HTN COMPARISON STUDY: Chest CT October 24, 2023. CT of the abdomen and pelvis November 27, 2007. TECHNIQUE: Color and duplex Doppler sonography of the abdominal aorta and bilateral renal arteries wa s performed. FINDINGS: There is extensive calcified plaque within the proximal abdominal aorta. Markedly elevated peak systolic velocity of 536 cm/s within the abdominal aorta indicates a severe stenosis. This corre sponds to the extensive calcified plaque shown on chest CT of October 21, 2023. There is no hydroneph rosis. Both kidneys measure 10.6 cm in maximal dimension. No elevated velocities within the renal art eries were noted. The peak systolic velocity within the right renal artery was 64 cm/s peak systolic velocity within th e left renal artery was 84 cm/s. Parvus tardus waveforms within the segmental arteries of both kidney s were noted. Bilateral renal veins are patent. IMPRESSION: 1. Extensive calcified plaque within the proximal abdominal aorta with markedly elevated velocities c onsistent with severe stenosis of the abdominal aorta. 2. No sonographic evidence for renal artery stenosis. 3. Parvus tardus waveforms within the segmental arteries of both kidneys which may be related to cathy re abdominal aortic stenosis. ACT 112: Negative or not required by law. Electronically signed by: Kwame Weir M.D. 10/26/2023 2:46 PM
[2023-10-26] MEDS: cefTRIAXone SODIUM 2,000 MG in DEXTROSE 5 % MINI-B 50 ML IV SCH (15:00)
[2023-10-26] MEDS: FUROSEMIDE 20 MG TAB PO SCH (16:11)
[2023-10-26] MEDS ORDERED: FUROSEMIDE 40 MG TAB PO SCH (17:00)
[2023-10-26] MEDS: clonazePAM 0.5 MG TAB PO PRN (20:15)
[2023-10-26] MEDS: TERAZOSIN HCL 1 MG CAP PO SCH (20:17)
[2023-10-26] MEDS ORDERED: LABETALOL HCL 100 MG TAB PO SCH (21:00)
[2023-10-26] MEDS: carvediloL 25 MG TAB PO SCH (21:28)
[2023-10-27] MEDS: HEPARIN SOD 5,000 UNIT/0.5 ML VIAL SQ SCH (05:33)
[2023-10-27 06:57] LABS: BUN Creatinine Ratio 22.4 (10-20); Calcium 8.8 mg/dl (8.6-10.3); Creatinine Clr Calc Pharmacy 38.3 ml/min; Est GFR (African American) 60.5 ml/min; Est GFR (Non-African American) 52.2 ml/min; Potassium 3.9 mmol/L (3.5-5.1)
[2023-10-27] MEDS: SODIUM CHLOR 7% 4 ML NEB NEB SCH (07:23)
[2023-10-27] MEDS: ALBUT/IPRATROP 3MG/0.5MG NEB 3 ML VIAL NEB SCH ×2 (07:23→11:08)
[2023-10-27] MEDS: ACETYLCYSTEINE 20% INHAL SOLN 4ML ***DISPENSED BY RESP. INH SCH (07:23)
[2023-10-27] MEDS: ASPIRIN 81 MG ECTAB PO SCH (08:08)
[2023-10-27] MEDS: PARoxetine HCL 20 MG TAB PO SCH (08:08)
[2023-10-27] MEDS: CETIRIZINE HCL 10 MG TABLET PO SCH (08:08)
[2023-10-27] MEDS: guaiFENesin 600 MG TABCR PO SCH (08:08)
[2023-10-27] MEDS: SPIRONOLACTONE 25 MG TAB PO SCH (08:08)
[2023-10-27] MEDS: ARIPiprazole 5 MG TAB PO SCH (08:08)
[2023-10-27] MEDS: amLODIPine BESYLATE 5 MG TAB PO SCH (08:09)
[2023-10-27] MEDS: hydrALAZINE TAB 50 MG TAB PO SCH (08:09)
[2023-10-27] MEDS: LOSARTAN POTASSIUM 50 MG TAB PO SCH (08:09)
[2023-10-27] MEDS: ATORVASTATIN 20 MG TAB PO SCH (08:09)
[2023-10-27] MEDS: FUROSEMIDE 20 MG TAB PO SCH (08:09)
[2023-10-27] MEDS: UMECLIDINIUM BROMIDE 62.5MCG/BLISTER 7 PUFFS/INHALER INH SCH (08:10)
--- NOTE | 2023-10-27 11:43 | Hospitalist Progress Note ---
Date of Service October 27, 2023 Assessment & Plan (1) Acute respiratory failure with hypoxia: (2) COPD exacerbation: (3) Elevated troponin: (4) Pneumonia: Plan: per previous hospitalist notes with addendum: 58-year-old woman with history of COPD not on home oxygen, hypertension, vitamin D deficiency, osteoporosis, heterozygous for factor V Leiden mutation, hyperlipidemia, cigarette smoker, bipolar, lung cancer status post lung lobectomy who presents to the ER complaining of worsening shortness of breath, cough over the past few days. CXR noted asymmetric interstitial thickening in the right lung, suggestive of pulmonary edema, small right pleural effusion, right basilar opacity, emphysema. Labs notable for WBC of 20.94, hemoglobin of 11.8, sodium of 131, creatinine of 1.25 serum osmolality of 279, troponin of 19.7, BNP of 658. Respiratory PCR was negative Presentation suggestive of upper respiratory tract infection with COPD exacerbation. Got IV Solu-Medrol in ER. Review of prior hospitalization from 06/2023 also noted similar lung findings at the time CT PE did not show PE but noted asymmetric pulm edema, small right pleural effusion BNP is elevated but better than BNP during last hospitalization in 06/2023 (was 2238 then) Review of TTE in 06/2023 noted EF 50-55%, small circumferential pericardial effusion with moderate volume of fluid loculated adjacent to posterior lateral wall. No evidence of tamponade These suggests cause of hypoxia may be multifactorial -COPD exacerbation -Pneumonia -Pulm edema/Acute diastolic heart failure Trop is negative. EKG reviewed. NSR. No ST-T changes trop downtrended Tele monitor Procal is normal. Elevated WBC may be due to infection vs steroid at home. Pneumonia is possible, ceftriaxone (abx) initiated Continue prednisone Continue duonebs Continue oxygen supplementation and wean as tolerated. Currently down to 4L Continue ceftriaxone. Allergies to antibiotics (Erythromycin base/tetracycline/quinolones) Pulmonary medicine consulted - appreciate their input, hypertonic saline added. Also recommend repeat CT chest in 2 months. Patient does not seem volume overloaded on physical exam, will continue lasix for now Echo obtained -no regional wall motion abnormalities noted. LVEF 50 to 55%. Grade 1 diastolic dysfunction. There is a small circumferential pericardial effusion with no significant amount of focal fluid collection adjacent to the apical lateral apical posterior and anterior lou. There are no echocardiographic indications of cardiac tamponade. Compared to images obtained at the time of the prior study in June 2023, there is no significant interval change. 10/24 Still on 2 L of oxygen nasal cannula Continue prednisone, DuoNeb, ceftriaxone Mucomyst added Lasix on hold due to elevated creatinine, creatinine now back to baseline, resume Lasix tomorrow 10/25 Weaned off oxygen Continue prednisone, DuoNeb, ceftriaxone, Mucomyst Lasix resumed, increased to 40 mg p.o. twice daily to also address uncontrolled hypertension 10/26 Respiratory status stable Off oxygen supplement Completed prednisone course 10/27 breathing much better continue Duoneb QID x 1 week continue Mucinex x 3 days continue flutter valve, incentive spirometry ff up with Customer Supply Coordinator Dr. Ceja in 2 weeks will need outpatient Bronchoscopy (5) CKD (chronic kidney disease) stage 2, GFR 60-89 ml/min: Plan: Stable next (6) Hypertensive urgency: Plan: systolic BPs 180s Nephrology service consulted Spironolactone 50 mg daily started Renal Doppler ultrasound: 1. Extensive calcified plaque within the proximal abdominal aorta with markedly elevated velocities consistent with severe stenosis of the abdominal aorta. 2. No sonographic evidence for renal artery stenosis. 3. 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 BP improving gradually continue Aldactone 50mg daily in addition to usual regimen: amlodipine, losartan, hydralazine, coreg ff up with PCP in 1 week will need referral to Vascular surgeon for severe stenosis of the abdominal aorta. (7) Hyponatremia: Plan: Na 131--> 135 Monitor BMP (8) Essential hypertension: Plan: On multiple antihypertensives BP elevated likely secondary to COPD flare, Prednisone Lasix 40mg BID PRN Hydralazine Management per above (9) DVT prophylaxis: Plan: Hep Sq Code Status: Full Dispo: d/c home today ff up with PCP in 1 week ff up with Customer Supply Coordinator in 2 weeks plan of care discussed with patient in detail all questions answered she is understanding, agreeable, comfortable with the plan of care Admission and Anticipated Discharge Date Admission Date: October 21, 2023 Subjective FF UP FOR COPD EXACERBATION, HTN, ETC seen resting in bed, comfortable states she feels better overall no cough, shortness of breath ambulating with no problems no chest pain, dyspnea, palpitations, dizziness no other symptoms Review of Systems Review of Systems: all noted and negative except for above Physical Exam Physical Exam: General- oriented x 3, not in distress, speaks in sentences with no effort or accessory muscle use Eyes- anicteric Neck- no JVD Lungs- clear breath sounds bilaterally, no rales/wheezes Heart- normal rate, regular rhythm; no murmurs Abdomen- normal bowel sounds, nondistended, soft, nontender Extremities- no pretibial edema, no calf tenderness Neuro- alert, oriented x 3; no gross focal neurologic deficits Skin- warm & dry Results & Data Results & Data Vital Signs (Past 12 Hours) Vital Signs Temp Pulse Resp BP Pulse Ox O2 Del Method 10/27/23 11:08 63 16 96 Room Air 10/27/23 07:47 36.3 C L 59 L 18 189/80 H 94 Room Air 10/27/23 07:24 59 L 17 Room Air 10/27/23 03:07 36.9 C 53 L 18 147/69 H 97 Room Air BP taken personally by undersigned: 158/70 (4) Pneumonia Laterality: right Lung location: lower lobe of lung Pneumonia type: due to unspecified organism Qualified Code(s): J18.9 - Pneumonia, unspecified organism
--- NOTE | 2023-10-27 11:45 | Discharge Summary ---
Discharge Summary Date of Service October 27, 2023 Notes For Next Care Provider Medication Changes From Visit Aldactone 50mg daily Duoneb QID x 1 week Mucinex x 3 days Admission HPI Per Admitting Provider 58-year-old woman with history of COPD not on home oxygen, hypertension, vitamin D deficiency, osteoporosis, heterozygous for factor V Leiden mutation, hyperlipidemia, cigarette smoker, bipolar, lung cancer status post lung lobectomy who presents to the ER complaining of worsening shortness of breath, cough over the past few days. Patient reported that she started having upper respiratory symptoms [sore throat, rhinorrhea, sinus congestion and dry cough] about 6 days ago. Over the past 2 days symptoms had worsened, now including shortness of breath and cough becoming more productive of yellowish sputum. Patient called into her doctor's office and was prescribed a rescue kit which she started yesterday. She reported she been using her nebulizer at home and shortness of breath was worsening, associated with chest tightness, wheezing, chills. Denies any fevers, nausea, vomiting, palpitation, chest pain, abdominal pain, diarrhea, constipation, dysuria, frequency, urgency, hematuria Per ER physician, patient was hypoxic to 70s on room air on presentation and was put on oxygen mask. She had decreased breath sounds with wheezing. Was started on Solu-Medrol IV and neb treatment with some improvement. Patient reports that she still smokes a few cigarettes [average of 3 cigarettes/day] Denies alcohol or illicit drug use. Admission Exam Per Admitting Provider Constitutional: + acute distress (Mild tachypnea) Eyes: PERRL, conjunctivae normal, anicteric sclerae ENMT: external ear and nose normal, oropharynx normal Respiratory: + cough and + tachypneic; does not use a ccessory muscles Auscultation: + diminished lung sounds and + wheezes Cardiovascular: Rate/Rhythm: regular rate and regular rhythm S1-S2 Gastrointestinal (Abdomen): normal bowel sounds, soft, nontender, no hepatosplenomegaly Musculoskeletal: No pedal edema Neurologic: PERRL, EOMI, accommodation nl, no face palsy, no dysarthria Psychiatric: A+Ox3, euthymic affect Principal Dx & Hospital Course #1 = Principal Diagnosis (1) Acute respiratory failure with hypoxia: (2) COPD exacerbation: (3) Elevated troponin: (4) Pneumonia: per previous hospitalist notes with addendum: 58-year-old woman with history of COPD not on home oxygen, hypertension, vitamin D deficiency, osteoporosis, heterozygous for factor V Leiden mutation, hyperlipidemia, cigarette smoker, bipolar, lung cancer status post lung lobectomy who presents to the ER complaining of worsening shortness of breath, cough over the past few days. CXR noted asymmetric interstitial thickening in the right lung, suggestive of pulmonary edema, small right pleural effusion, right basilar opacity, emphysema. Labs notable for WBC of 20.94, hemoglobin of 11.8, sodium of 131, creatinine of 1.25 serum osmolality of 279, troponin of 19.7, BNP of 658. Respiratory PCR was negative Presentation suggestive of upper respiratory tract infection with COPD exacerbation. CT PE: 1. No pulmonary emboli identified. 2. Findings suggestive of asymmetric pulmonary edema within the right lung. Small right pleural effusion. Subpleural right lower lobe opacity favors atelectasis. Pneumonia could appear similar but is considered less likely. 3. Stable postoperative findings following left upper lobectomy. 4. Mildly enlarged right hilar lymph nodes which are unchanged since prior CT. A follow-up chest CT in 6 months to ensure continued stability recommended Echo: -no regional wall motion abnormalities noted. LVEF 50 to 55%. Grade 1 diastolic dysfunction. There is a small circumferential pericardial effusion with no significant amount of focal fluid collection adjacent to the apical lateral apical posterior and anterior lou. There are no echocardiographic indications of cardiac tamponade. Compared to images obtained at the time of the prior study in June 2023, there is no significant interval change. cause of hypoxia may be multifactorial: -COPD exacerbation -Pneumonia -Pulm edema/Acute diastolic heart failure Surgical Sales Representative Dr. Ceja consulted placed on: Prednisone, Duonebs, Ceftriaxone Lasix Weaned off oxygen Respiratory status stable breathing much better continue Duoneb QID x 1 week continue Mucinex x 3 days continue flutter valve, incentive spirometry ff up with Surgical Sales Representative Dr. Ceja in [address] chest in 2 months will need outpatient Bronchoscopy (5) CKD (chronic kidney disease) stage 2, GFR 60-89 ml/min: Stable next (6) Hypertensive urgency: systolic BPs 180s Nephrology service consulted Spironolactone 50 mg daily started Renal Doppler ultrasound: 1. Extensive calcified plaque within the proximal abdominal aorta with markedly elevated velocities consistent with severe stenosis of the abdominal aorta. 2. No sonographic evidence for renal artery stenosis. 3. 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 BP improving gradually continue Aldactone 50mg daily in addition to usual regimen: amlodipine, losartan, hydralazine, coreg ff up with PCP in 1 week will need referral to Vascular surgeon for severe stenosis of the abdominal aorta. (7) Hyponatremia: Na 131--> 135 Monitor BMP (8) Essential hypertension: On multiple antihypertensives BP elevated likely secondary to COPD flare, Prednisone Lasix 40mg BID PRN Hydralazine Management per above (9) DVT prophylaxis: Hep Sq Code Status: Full Dispo: d/c home today ff up with PCP in 1 week ff up with Surgical Sales Representative in 2 weeks plan of care discussed with patient in detail all questions answered she is understanding, agreeable, comfortable with the plan of care Discharge Exam General- oriented x 3, not in distress, speaks in sentences with no effort or accessory muscle use Eyes- anicteric Neck- no JVD Lungs- clear breath sounds bilaterally, no rales/wheezes Heart- normal rate, regular rhythm; no murmurs Abdomen- normal bowel sounds, nondistended, soft, nontender Extremities- no pretibial edema, no calf tenderness Neuro- alert, oriented x 3; no gross focal neurologic deficits Skin- warm & dry Updated Medication List Medication Instructions Recorded Confirmed Type aripiprazole 5 mg tablet (Abilify) 5 mg PO DAILY 12/03/19 10/21/23 History aspirin 81 mg tablet 81 mg PO DAILY 02/04/20 10/21/23 History cetirizine 10 mg tablet 10 mg PO DAILY 02/04/20 10/21/23 History clonazepam 0.5 mg tablet 0.5 mg PO BID PRN Anxiety 02/04/20 10/21/23 History amlodipine 10 mg tablet 10 mg PO DAILY 08/01/21 10/21/23 History losartan 50 mg tablet 50 mg PO BID 08/01/21 10/21/23 History albuterol sulfate 90 mcg/actuation 2 puff inhalation Q4H PRN 02/20/22 10/21/23 Rx aerosol inhaler (Ventolin HFA) shortness of breath ,coughing or wheezing #18 grams atorvastatin 20 mg tablet 20 mg PO DAILY 06/11/23 10/21/23 History carvedilol 25 mg tablet 25 mg PO BID 06/11/23 10/21/23 History paroxetine HCl 40 mg tablet 40 mg PO DAILY 06/11/23 10/21/23 History albuterol sulfate 2.5 mg/3 mL 2.5 mg (3 mL) inhalation Q4H PRN 06/15/23 10/21/23 Rx (0.083 %) solution for nebulization shortness of breath or wheezing #180 mL benzonatate 100 mg capsule 100 mg PO TID PRN cough #20 caps 06/15/23 10/21/23 Rx furosemide 20 mg tablet 20 mg PO BID #60 tabs 06/15/23 10/21/23 Rx hydralazine 50 mg tablet 50 mg PO TID #90 tabs 06/15/23 10/21/23 Rx terazosin 1 mg capsule 2 mg (2 x 1 mg) PO HS #30 caps 06/15/23 10/21/23 Rx umeclidinium 62.5 mcg/actuation 1 inh inhalation DAILY #90 puffs 07/10/23 10/21/23 Rx blister powder for inhalation (Incruse Ellipta) fluticasone propionate 50 1 spray intranasal BID #18.2 mL 10/19/23 10/21/23 Rx mcg/actuation nasal spray,suspension (Flonase Allergy Relief) acetaminophen 650 mg 650 mg PO Q8H PRN Pain 10/21/23 10/21/23 History tablet,extended release alendronate 70 mg tablet 70 mg PO WK 10/21/23 10/21/23 History ergocalciferol (vitamin D2) 1,250 1,250 mcg PO WK 10/21/23 10/21/23 History mcg (50,000 unit) capsule (Vitamin D2) guaifenesin 600 mg tablet, 1,200 mg (2 x 600 mg) PO Q12 3 10/27/23 Rx extended release 12 hr (Mucinex) days #12 tabs ipratropium 0.5 mg-albuterol 3 mg 3 ml NEB QIDR 7 days #90 mL 10/27/23 Rx (2.5 mg base)/3 mL nebulization soln spironolactone 25 mg tablet 50 mg (2 x 25 mg) PO QAM 30 days 10/27/23 Rx #60 tabs Hospital Stay Data Consultations 10/21/23 09:19 ED Decision to Admit Stat 10/21/23 10:16 Consult Pulmonology Routine 10/26/23 08:29 Consult Nephrology Routine Diagnostic Imagining Performed Laboratory Results WBC 12.14 K/ul (4.8-10.8) H 10/25/23 05:04 RBC 4.10 M/uL (4.20-5.40) L 10/25/23 05:04 Hgb 12.3 g/dl (12.0-16.0) 10/25/23 05:04 Hct 34.8 % (37.0-47.0) L 10/25/23 05:04 MCV 84.9 fL (80.0-100.0) 10/25/23 05:04 MCH 30.0 pg (25.0-34.0) 10/25/23 05:04 MCHC 35.3 g/dL (32.0-36.0) 10/25/23 05:04 RDW Std Deviation 44.5 fL (36.4-46.3) 10/25/23 05:04 RDW Coeff of Shanna 14.5 % (11.5-14.5) 10/25/23 05:04 Plt Count 230 K/uL (130-400) 10/25/23 05:04 MPV 11.1 fL (9.4-12.4) 10/25/23 05:04 Immature Gran % (Auto) 0.7 % 10/25/23 05:04 Neut % (Auto) 67.6 % 10/25/23 05:04 Lymph % (Auto) 23.4 % 10/25/23 05:04 Kidder % (Auto) 8.0 % 10/25/23 05:04 Eos % (Auto) 0.1 % 10/25/23 05:04 Baso % (Auto) 0.2 % 10/25/23 05:04 Neut # (Auto) 8.22 K/uL (1.40-6.50) H 10/25/23 05:04 Lymph # (Auto) 2.84 K/uL (1.20-3.40) 10/25/23 05:04 Kidder # (Auto) 0.97 K/uL (0.11-0.59) H 10/25/23 05:04 Eos # (Auto) 0.01 K/uL (0.00-0.50) 10/25/23 05:04 Baso # (Auto) 0.02 K/uL (0.00-0.20) 10/25/23 05:04 Immature Gran # (Auto) 0.08 K/uL (0.01-0.20) 10/25/23 05:04 PT 11.0 Seconds (9.0-12.0) 10/21/23 07:15 INR 1.0 (0.9-1.1) 10/21/23 07:15 Sodium 135 mmol/L (136-145) L 10/27/23 05:14 Potassium 3.9 mmol/L (3.5-5.1) 10/27/23 05:14 Chloride 99 mmol/L (98-107) 10/27/23 05:14 Carbon Dioxide 28 mmol/L (21-32) 10/27/23 05:14 Anion Gap 8 (3-11) 10/27/23 05:14 BUN 26 mg/dl (6-23) H 10/27/23 05:14 Creatinine 1.16 mg/dl (0.6-1.2) 10/27/23 05:14 Est Cr Clr Drug Dosing 38.3 ml/min 10/27/23 05:14 Est GFR ( Amer) 60.5 ml/min 10/27/23 05:14 Est GFR (Non-Af Amer) 52.2 ml/min 10/27/23 05:14 BUN/Creatinine Ratio 22.4 (10-20) H 10/27/23 05:14 Glucose 80 mg/dl (70-99(Fasting)) 10/27/23 05:14 Osmolality 279 mOsm/kg (280-300) L 10/21/23 08:20 Calcium 8.8 mg/dl (8.6-10.3) 10/27/23 05:14 Phosphorus 3.1 mg/dl (2.5-4.9) 10/24/23 04:38 Magnesium 2.2 mg/dl (1.7-2.4) 10/24/23 04:38 Total Bilirubin 0.5 mg/dl (0.2-1.0) 10/21/23 07:15 AST 38 U/L (13-39) 10/21/23 07:15 ALT 37 U/L (7-52) 10/21/23 07:15 Alkaline Phosphatase 94 U/L (34-104) 10/21/23 07:15 Troponin I High Sens 18.3 pg/ml (0-14) H D 10/21/23 19:07 B-Natriuretic Peptide 658 pg/ml (0-100) H 10/21/23 09:30 Total Protein 7.2 gm/dl (6.0-8.3) 10/21/23 07:15 Albumin 4.4 gm/dl (3.4-5.0) 10/21/23 07:15 Globulin 2.8 gm/dl (2.5-4.0) 10/21/23 07:15 Albumin/Globulin Ratio 1.6 (0.9-2) 10/21/23 07:15 Lipase 28 U/L (11-82) 10/21/23 07:15 Procalcitonin < 0.05 ng/ml (0-0.5) 10/21/23 08:20 TSH 1.583 uIu/ml (0.300-4.500) 10/21/23 07:15 Urine Osmolality 383 mOsm/kg (500-800) L 10/21/23 16:12 Ur Random Sodium 10 mmol/L 10/21/23 16:12 Adenovirus (PCR) Not Detected (NotDetected) 10/21/23 07:15 B. pertussis DNA (PCR) Not Detected (NotDetected) 10/21/23 07:15 B.parapertussis DNA PCR Not Detected (NotDetected) 10/21/23 07:15 C. pneumoniae DNA (PCR) Not Detected (NotDetected) 10/21/23 07:15 Coronavirus OC43 (PCR) Not Detected (NotDetected) 10/21/23 07:15 Coronavirus HKU1 (PCR) Not Detected (NotDetected) 10/21/23 07:15 Coronavirus 229E (PCR) Not Detected (NotDetected) 10/21/23 07:15 SARS-CoV-2 (PCR) Not Detected (NotDetected) 10/21/23 07:15 Coronavirus NL63 (PCR) Not Detected (NotDetected) 10/21/23 07:15 Human Metapneumovir PCR Not Detected (NotDetected) 10/21/23 07:15 Influenza Type A (PCR) Not Detected (NotDetected) 10/21/23 07:15 Influenza Type B (PCR) Not Detected (NotDetected) 10/21/23 07:15 Urine Legionella Ag SEE NOTE 10/21/23 16:12 M. pneumoniae (PCR) Not Detected (NotDetected) 10/21/23 07:15 Parainfluenza 1 (PCR) Not Detected (NotDetected) 10/21/23 07:15 Parainfluenza 2 (PCR) Not Detected (NotDetected) 10/21/23 07:15 Parainfluenza 3 (PCR) Not Detected (NotDetected) 10/21/23 07:15 Parainfluenza 4 (PCR) Not Detected (NotDetected) 10/21/23 07:15 RSV (PCR) Not Detected (NotDetected) 10/21/23 07:15 Entero/Rhino (PCR) Not Detected (NotDetected) 10/21/23 07:15 Impressions Chest CTA 10/21/23 09:21 CT ANGIOGRAPHY OF THE CHEST, PULMONARY EMBOLUS PROTOCOL CLINICAL HISTORY: Shortness of breath. Evaluate for pulmonary embolus. COMPARISON STUDY: Chest CT June 11, 2023 chest radiograph performed earlier today. TECHNIQUE: Following IV administration of Optiray, helical axial images of the chest were obtained utilizing the pulmonary embolus protocol. Maximal intensity projections and sagittal and coronal reformats were viewed on an independent 3D workstation. IV contrast was administered without complication. Automated exposure control was utilized for the study. A dose lowering technique was utilized adhering to the principles of ALARA. CT DOSE: 315.57 mGy.cm FINDINGS: No pulmonary emboli are identified. Mild cardiomegaly is unchanged. Mildly enlarged right hilar lymph nodes are unchanged since CT of June 11, 2023. There is a small right pleural effusion. There is no pneumothorax. Asymmetric interlobular septal thickening and groundglass opacities within the right lung are noted. Subpleural right lower lobe airspace opacity is present. There is underlying emphysema. No acute fractures are present. Body wall edema is present. Extensive calcified plaque within the distal descending and proximal abdominal aorta is present. This results in severe stenosis. This is similar to prior CT. IMPRESSION: 1. No pulmonary emboli identified. 2. Findings suggestive of asymmetric pulmonary edema within the right lung. Small right pleural effusion. Subpleural right lower lobe opacity favors atelectasis. Pneumonia could appear similar but is considered less likely. 3. Stable postoperative findings following left upper lobectomy. 4. Mildly enlarged right hilar lymph nodes which are unchanged since prior CT. A follow-up chest CT in 6 months to ensure continued stability recommended ACT 112: Negative or not required by law. Electronically signed by: Kwame Weir M.D. 10/21/2023 10:48 AM Chest X-Ray 10/23/23 07:00 XR chest 1V portable CLINICAL HISTORY: f/u TECHNIQUE: Single frontal radiograph of the chest was obtained. Comparison: Comparison is made to chest radiograph 10/21/2023 FINDINGS: No lines and tubes are seen. The cardiomediastinal silhouette is normal. The lungs are clear. Small right pleural effusion. Blunting of the left costophrenic angle is chronic. IMPRESSION: Small right pleural effusion is again seen, underlying atelectasis is likely. ACT 112: Negative or not required by law. Electronically signed by: Kaveh Gordon M.D. 10/23/2023 10:39 AM Renal Artery Duplex 10/26/23 10:43 US duplex renal artery CLINICAL HISTORY: Resistant HTN COMPARISON STUDY: Chest CT October 24, 2023. CT of the abdomen and pelvis November 27, 2007. TECHNIQUE: Color and duplex Doppler sonography of the abdominal aorta and bilateral renal arteries was performed. FINDINGS: There is extensive calcified plaque within the proximal abdominal aorta. Markedly elevated peak systolic velocity of 536 cm/s within the abdominal aorta indicates a severe stenosis. This corresponds to the extensive calcified plaque shown on chest CT of October 21, 2023. There is no hydronephrosis. Both kidneys measure 10.6 cm in maximal dimension. No elevated velocities within the renal arteries were noted. The peak systolic velocity within the right renal artery was 64 cm/s peak systolic velocity within the left renal artery was 84 cm/s. 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 Bilateral renal veins are patent. IMPRESSION: 1. Extensive calcified plaque within the proximal abdominal aorta with markedly elevated velocities consistent with severe stenosis of the abdominal aorta. 2. No sonographic evidence for renal artery stenosis. 3. 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 ACT 112: Negative or not required by law. Electronically signed by: Kwame Weir M.D. 10/26/2023 2:46 PM Pending Results Patient Have Any Pending Studies at Discharge: Yes Discharge Instructions Given to Patient (Per Discharging Provider) PLEASE REFER TO YOUR NEW MEDICATION LIST AND FOLLOW INSTRUCTIONS CAREFULLY. YOUR NEW MEDICATIONS INCLUDE: Aldactone- diuretic for blood pressure control Duoneb- nebulizer treatment Mucinex- for cough Take a probiotic daily for at least 2 weeks. PLEASE CALL YOUR PRIMARY CARE PHYSICIAN OR RETURN TO THE ER IF WITH WORSENING OF SYMPTOMS, INCLUDING cough, shortness of breath, fever/chills, headache, chest pain, dizziness, abdominal pain, etc FOLLOW UP WITH PRIMARY CARE PHYSICIAN IN 1 WEEK. THE CLINIC WILL BE CALLING YOU SOON FOR AN APPOINTMENT. FOLLOW UP WITH PROFESSIONAL EMPLOYER CONSULTANT DR. CEJA IN 2 WEEKS. YOU NEED TO HAVE A REPEAT CT SCAN OF THE CHEST IN 2 MONTHS AND BRONCHOSCOPY PROCEDURE. THIS NEEDS TO BE DISCUSSED FURTHER DURING YOUR FOLLOW UP VISIT WITH THE PROFESSIONAL EMPLOYER CONSULTANT. Total Time Total Time Spent Total Time Spent (In Minutes): > 30 minutes
--- NOTE | 2023-10-27 11:49 | Nephrology Progress Note ---
Date of Service October 27, 2023 Assessment & Plan (1) Respiratory failure with hypoxia: Plan: Seems to have recovered from that and is now on RA. Follwed by Pulm. Also had some degree of CHF and viral Infection. (2) Hypertensive urgency: Plan: She does have true issue with HTN urgency. has been in Hospital now for 5 days now and BP is still very high despite getting meds --on many. However has not been getting Lasix which can make a huge difference and in lot of HTN bp is never controlled unless they are on adequate diuretics. -Blood pressure is improving. By my check today it was 168/75 during physical exam. Continue current regimen. From renal standpoint patient can be discharged on current regimen to follow-up with nephrology outpatient Admission and Anticipated Discharge Date Admission Date: October 21, 2023 Subjective Seen for uncontrolled hypertension. She feels better today. No shortness of breath or chest pain. Review of Systems 2 Review of Systems: All other systems were reviewed and negative except as noted in HPI Physical Exam 2 Physical Exam: General exam: Appears comfortable, no acute distress HEENT: Pupils are equal and reactive to light Neck: No JVD, neck is supple trachea is midline Respiratory system: Clear breath sounds bilaterally. Gastrointestinal: Abdomen is soft, non distended, non tender, bowel sounds are present CVS: Regular rate and rhythm. No murmurs, rubs or gallops Musculoskeletal: No joint or muscle tenderness Extremities: Non tender, no edema, peripheral pulses are present Neuro: Oriented, no tremors, no focal neurological deficits Skin: No rashes Results & Data Vital Signs (Past 12 Hours) Vital Signs Temp Pulse Resp BP Pulse Ox O2 Del Method 10/27/23 11:08 63 16 96 Room Air 10/27/23 07:47 36.3 C L 59 L 18 189/80 H 94 Room Air 10/27/23 07:24 59 L 17 Room Air 10/27/23 03:07 36.9 C 53 L 18 147/69 H 97 Room Air Laboratory Results 10/27/23 05:14
[2023-10-27] MEDS: carvediloL 25 MG TAB PO SCH (12:13)
== END 2023-10-27 14:18 | disposition home or self-care (01) | DRG 193 ==
LOC: ED 06:54 → 4W 10:16 → SUATTDRO 10:16 → 4W 11:22 → 1E 10-22 19:07 → 4W 10-25 08:12

== ENCOUNTER 2023-12-03 17:45 | Inpatient (IN) ==
--- NOTE | 2023-12-03 17:52 | ED Triage Note ---
Date of Service December 03, 2023 Provider in Triage Author: Imani Pedro History of Present Illness This patient was briefly evaluated while in triage. An abbreviated physical exam was performed. This patient is a 58-year-old Female who presents to the ED for evaluation of shortness of breath. She states this started a few days ago but worsened today. Reports a history of COPD. Denies chest pain, recent illness, fevers or cough. Follows [place] [facility] [place] and states she had a scan of the chest a few days ago. Physical Exam GENERAL: Non-toxic and in no acute distress. HEENT: Pupils equal. No obvious scleral icterus. HEART: Regular rate and rhythm. LUNGS: Inspiratory and expiratory wheezes throughout. Increased work of breathing noted. NEURO: Alert and oriented. No obvious neurological deficits on quick neuro exam. Initial orders for labs and / or imaging were placed and patient was placed in the waiting area until a bed is available. Please see further documentation for the full ED course. MDM / Impression Impression Impression: Respiratory failure, Pneumonia, Acute exacerbation of chronic obstructive pulmonary disease Impression: Respiratory failure Qualifiers: Chronicity: acute Respiratory failure complication: hypoxia Qualified Code(s): J96.01 - Acute respiratory failure with hypoxia Pneumonia Qualifiers: Pneumonia type: due to unspecified organism Laterality: unspecified laterality Lung location: unspecified part of lung Qualified Code(s): J18.9 - Pneumonia, unspecified organism
--- NOTE | 2023-12-03 18:08 | Emergency Department Note ---
Impression & Plan Respiratory failure, Pneumonia, Acute exacerbation of chronic obstructive pulmonary disease ED Provider Note NAME: MERLE JENSEN AGE: 58 SEX: F : 1965 ARRIVES VIA: Walk-In INFORMANT: Patient, ED PROVIDER(S): Jacoby Hodge DO CHIEF COMPLAINT: Shortness of breath HPI: The patient is a 58-year-old female who has a history of CHF as well as COPD who presented to the emergency department for an evaluation for difficulty breathing. The patient states that she was noticing difficulty breathing over the course last week. She has been compliant with her outpatient medications otherwise. She denies having any leg swelling. She denies having any hemoptysis or productive cough. She states this feels similar to when she has had pneumonia in the past. She denies having any fever. She did not see her family doctor but presented to the emergency department today. She was brought directly from triage back to a room for evaluation. ROS: See above HPI for pertinent positives & negatives. A total of 10 systems reviewed and were otherwise negative. PAST MEDICAL HISTORY: See Below PAST SURGICAL HISTORY: See Below FAMILY HISTORY: See Below SOCIAL HISTORY: See Below HOME MEDICATIONS: See Below ALLERGIES: See Below VITALS: See Below PHYSICAL EXAMINATION: GENERAL: The patient is awake and alert. She is somewhat anxious EYES: The conjunctivae are clear. The pupils are round and reactive. EARS, NOSE, MOUTH AND THROAT: The nose is without any evidence of any deformity. NECK: The neck is nontender and supple. RESPIRATORY: Diminished breath sounds are noted throughout with expiratory wheezing both upper lung cross. There was conversational dyspnea. CARDIOVASCULAR: Regular rate and rhythm noted there no murmurs rubs or gallops normal S1 normal S2. GASTROINTESTINAL: The abdomen is soft. Abdomen is nontender. MUSCULOSKELETAL/EXTREMITIES: There is no evidence of gross deformity full range of motion is noted in the hips and shoulders. SKIN: There is no obvious evidence of any rash. Trace pedal edema was noted bilaterally NEUROLOGIC: Patient is awake alert and oriented x3 MEDICAL DECISION MAKING: The patient's a 58-year-old female who presented to the emergency department for an evaluation of difficulty breathing. The patient's history and physical exam appear to be consistent with COPD. She does of a history of pneumonia in the past. She was coughing but now productive cough was noted. Chest x-ray appears to be consistent with volume overload as well as pneumonia. She was treated with DuoNeb therapy as well as Decadron and IV antibiotics. She was reevaluated multiple times. Aggressive fluid resuscitation was avoided given the patient's elevated blood pressure as well as her history of CHF. I discussed the patient's laboratory and radiographic studies with her. [facility] agreed to evaluate the patient in the emergency department for further management and disposition. Triage Nursing notes reviewed. Prior medical records reviewed Vital Signs: reviewed and remarkable for elevated blood pressure and hypoxia. Differential diagnosis: Reactive airway disease, pneumonia, pneumothorax, COPD, CHF, infections, cardiac ischemia, pulmonary embolism, musculoskeletal, gastrointestinal, as well as other pathologies. ER treatment provided: See below Diagnostics interpreted by me: ECG: EKG was obtained in the emergency department. My interpretation is normal sinus rhythm at 77 bpm. There is no ectopy. There nonspecific lateral ST abnormalities noted. This was compared to a tracing from October 21, 2023. No changes were noted. Cardiac Monitoring: An order was placed for continuous cardiac monitoring. The monitor shows a rate of 80 bpm with sinus rhythm. Laboratory studies: As stated above and show below. Imaging studies: See below. Radiographic imaging was reviewed by myself Consultation(s): I discussed this case with Dr. Stanton who [facility] ED COURSE: Procedures: none Critical Care: I have personally spent greater than 45 minutes of critical care time in the direct management of this patient. This includes bedside care, interpretation of diagnostic studies, and testing, discussion with consultants, patient, and family members, and other required patient management activities. This 45 minutes is in excess of all separately billable procedures. 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 Malignant neoplasm of upper lobe, left bronchus or lung Pulmonary emphysema Pulmonary nodule Arthritis Allergic rhinitis Lumbar stenosis (09/25/14) Surgical History History of D&C History of lumbar surgery H/O breast surgery H/O splenectomy Family History Father Hypertension Mother Lung cancer Other Breast cancer COPD (chronic obstructive pulmonary disease) Diabetes Social History Smoking Status: Current every day smoker Tobacco Type: Cigarettes Cigarettes Per Day: 3; Hx Alcohol Use: Yes Hx Substance Use: No Preferred Language: Kiswahili Communication Ability: Effective Group Home Manager Required: No Beliefs That Will Affect Care: None marital status: Current Living Situation: Significant Other current occupational status: disabled Feels Safe at Home: Yes Assistive Devices: Nebulizer Allergies Allergies Allergy/AdvReac Type Severity Reaction Status Date / Time Bactrim Allergy Intermediate HIVES Verified 07/26/15 07:15 Sulfa (Sulfonamide Allergy Intermediate BACTRIM- Verified 11/08/23 16:52 Antibiotics) HIVES sulfamethoxazole Allergy Intermediate HIVES Verified 11/08/23 16:52 trimethoprim Allergy Intermediate HIVES Verified 11/08/23 16:52 erythromycin base Allergy Unknown Verified 11/08/23 16:52 metaxalone Allergy Unknown Verified 11/08/23 16:52 morphine Allergy Unknown . Verified 11/08/23 16:52 neomycin Allergy Unknown Verified 11/08/23 16:52 Quinolones Allergy Unknown Verified 11/08/23 16:52 tetracycline Allergy Unknown Verified 11/08/23 16:52 amoxicillin [From Augmentin] Allergy Verified 11/08/23 16:52 clavulanic acid Allergy Verified 11/08/23 16:52 [From Augmentin] umeclidinium Allergy Verified 11/08/23 16:52 [From Anoro Ellipta] vilanterol Allergy Verified 11/08/23 16:52 [From Anoro Ellipta] moxifloxacin AdvReac Unknown hives Verified 11/08/23 16:52 Home Meds Home Medications Medication Instructions Recorded Confirmed aripiprazole 5 mg tablet (Abilify) 5 mg PO DAILY 12/03/19 11/08/23 aspirin 81 mg tablet 81 mg PO DAILY 02/04/20 11/08/23 cetirizine 10 mg tablet 10 mg PO DAILY 02/04/20 11/08/23 clonazepam 0.5 mg tablet 0.5 mg PO BID PRN Anxiety 02/04/20 11/08/23 amlodipine 10 mg tablet 10 mg PO DAILY 08/01/21 11/08/23 losartan 50 mg tablet 50 mg PO BID 08/01/21 11/08/23 atorvastatin 20 mg tablet 20 mg PO DAILY 06/11/23 11/08/23 carvedilol 25 mg tablet 25 mg PO BID 06/11/23 11/08/23 paroxetine HCl 40 mg tablet 40 mg PO DAILY 06/11/23 11/08/23 acetaminophen 650 mg 650 mg PO Q8H PRN Pain 10/21/23 11/08/23 tablet,extended release alendronate 70 mg tablet 70 mg PO WK 10/21/23 11/08/23 ergocalciferol (vitamin D2) 1,250 1,250 mcg PO WK 10/21/23 11/08/23 mcg (50,000 unit) capsule (Vitamin D2) Previous Rx's Medication Instructions Recorded albuterol sulfate 90 mcg/actuation 2 puff inhalation Q4H PRN 02/20/22 aerosol inhaler (Ventolin HFA) shortness of breath ,coughing or wheezing #18 grams albuterol sulfate 2.5 mg/3 mL 2.5 mg (3 mL) inhalation Q4H PRN 06/15/23 (0.083 %) solution for nebulization shortness of breath or wheezing #180 mL benzonatate 100 mg capsule 100 mg PO TID PRN cough #20 caps 06/15/23 furosemide 20 mg tablet 20 mg PO BID #60 tabs 06/15/23 hydralazine 50 mg tablet 50 mg PO TID #90 tabs 06/15/23 terazosin 1 mg capsule 2 mg (2 x 1 mg) PO HS #30 caps 06/15/23 umeclidinium 62.5 mcg/actuation 1 inh inhalation DAILY #90 puffs 07/10/23 blister powder for inhalation (Incruse Ellipta) fluticasone propionate 50 1 spray intranasal BID #18.2 mL 10/19/23 mcg/actuation nasal spray,suspension (Flonase Allergy Relief) ipratropium 0.5 mg-albuterol 3 mg 3 ml NEB QIDR 7 days #90 mL 10/27/23 (2.5 mg base)/3 mL nebulization soln spironolactone 25 mg tablet 50 mg (2 x 25 mg) PO QAM 30 days 10/27/23 #60 tabs Results & Data (ED) Vital Signs Vital Signs - 24 hr 12/03/23 17:45 12/03/23 17:45 12/03/23 17:53 Temperature 36.6 C Temperature Source Temporal Artery Scan Pulse Rate 92 H Pulse Rate [Right Finger] Pulse Rate from SpO2 Sensor Respiratory Rate 16 Respiratory Effort / Characteristics Blood Pressure 227/95 H Blood Pressure Mean 139 Pulse Oximetry 82 L 96 Oxygen Delivery Method Room Air Room Air Nasal Cannula Oxygen Flow Rate 6 Sepsis Recent Fever Within 48 Hours No Sepsis New/Unexplained Change in Mental Status N/A Sepsis Action Taken by Nursing No Action Required 12/03/23 18:04 12/03/23 18:16 12/03/23 18:30 Temperature Temperature Source Pulse Rate 77 Pulse Rate [Right Finger] 79 Pulse Rate from SpO2 Sensor 77 Respiratory Rate 26 H 17 Respiratory Effort / Characteristics Non-Labored Spontaneous Blood Pressure 162/80 H Blood Pressure Mean 126 Pulse Oximetry 97 98 Oxygen Delivery Method Nasal Cannula Oxygen Flow Rate 6 Sepsis Recent Fever Within 48 Hours Sepsis New/Unexplained Change in Mental Status Sepsis Action Taken by Nursing 12/03/23 18:30 12/03/23 18:32 12/03/23 19:00 Temperature Temperature Source Pulse Rate 77 78 Pulse Rate [Right Finger] Pulse Rate from SpO2 Sensor 77 Respiratory Rate 16 Respiratory Effort / Characteristics Blood Pressure 177/86 H Blood Pressure Mean 133 Pulse Oximetry 99 Oxygen Delivery Method Oxygen Flow Rate Sepsis Recent Fever Within 48 Hours Sepsis New/Unexplained Change in Mental Status Sepsis Action Taken by Nursing 12/03/23 19:00 Temperature Temperature Source Pulse Rate 75 Pulse Rate [Right Finger] Pulse Rate from SpO2 Sensor 77 Respiratory Rate 16 Respiratory Effort / Characteristics Blood Pressure Blood Pressure Mean Pulse Oximetry 97 Oxygen Delivery Method Nebulizer Oxygen Flow Rate Sepsis Recent Fever Within 48 Hours Sepsis New/Unexplained Change in Mental Status Sepsis Action Taken by Retirement Medications Current Medication List: was personally reviewed by me Laboratory Data Attestation: I reviewed the patient's lab results. 12/03/23 18:15 12/03/23 18:15 Lab Results 12/03/23 12/03/23 Range/Units 18:15 18:49 WBC 11.99 H (4.8-10.8) K/ul RBC 3.50 L (4.20-5.40) M/uL Hgb 10.3 L (12.0-16.0) g/dl Hct 30.5 L (37.0-47.0) % MCV 87.1 (80.0-100.0) fL MCH 29.4 (25.0-34.0) pg MCHC 33.8 (32.0-36.0) g/dL RDW Std Deviation 49.8 H (36.4-46.3) fL RDW Coeff of Shanna 15.9 H (11.5-14.5) % Plt Count 198 (130-400) K/uL MPV 10.7 (9.4-12.4) fL Immature Gran % (Auto) 0.7 % Neut % (Auto) 79.3 % Lymph % (Auto) 13.4 % Boundary % (Auto) 5.5 % Eos % (Auto) 0.6 % Baso % (Auto) 0.5 % Neut # (Auto) 9.51 H (1.40-6.50) K/uL Lymph # (Auto) 1.61 (1.20-3.40) K/uL Boundary # (Auto) 0.66 H (0.11-0.59) K/uL Eos # (Auto) 0.07 (0.00-0.50) K/uL Baso # (Auto) 0.06 (0.00-0.20) K/uL Immature Gran # (Auto) 0.08 (0.01-0.20) K/uL VBG pH 7.35 L (7.36-7.41) VBG pCO2 39 (38-50) mmHg VBG pO2 67 mmHg VBG HCO3 22 mmol/L VBG O2 Saturation 93.6 % VBG Base Excess -3.8 mEq/L Sodium 134 L (136-145) mmol/L Potassium 3.8 (3.5-5.1) mmol/L Chloride 103 (98-107) mmol/L Carbon Dioxide 22 (21-32) mmol/L Anion Gap 9 (3-11) BUN 16 (6-23) mg/dl Creatinine 1.15 (0.6-1.2) mg/dl Est Cr Clr Drug Dosing 42.7 ml/min Est GFR ( Amer) 61.2 ml/min Est GFR (Non-Af Amer) 52.8 ml/min BUN/Creatinine Ratio 13.9 (10-20) Glucose 112 H (70-99(Fasting)) mg/dl Calcium 8.4 L (8.6-10.3) mg/dl Total Bilirubin 1.5 H (0.2-1.0) mg/dl AST 20 (13-39) U/L ALT 17 (7-52) U/L Alkaline Phosphatase 88 (34-104) U/L Troponin I High Sens 15.8 H (0-14) pg/ml C-Reactive Protein 2.23 H (0-0.5) mg/dl Total Protein 6.9 (6.0-8.3) gm/dl Albumin 4.3 (3.4-5.0) gm/dl Globulin 2.6 (2.5-4.0) gm/dl Albumin/Globulin Ratio 1.7 (0.9-2) Procalcitonin < 0.02 (0-0.5) ng/ml Administered Medications Discontinued Medications Albuterol (Albut/Ipratrop 3mg/0.5mg Neb 3 Ml Vial) 12 ml NEB ONE ONE; Protocol Stop: 12/03/23 18:05 Last Admin: 12/03/23 18:14 Dose: 12 ml Documented By: TALITA Dexamethasone Sodium Phosphate (DexamethasonePf 10 Mg/Ml Vial) 10 mg IV NOW ONE Stop: 12/03/23 18:05 Last Admin: 12/03/23 18:12 Dose: 10 mg Documented By: TALITA Imaging Data Attestation: I personally reviewed and interpreted this imaging study as follows: My Impression: 1 view chest x-ray was obtained in the emergency department. My interpretation is infiltrate was noted, final report below. Radiologist's Impression: Chest X-Ray 12/03/23 17:53 XR chest 1V portable HISTORY: 58 years-old Female Dyspnea acute shortness of breath COMPARISON: 11/30/2023 TECHNIQUE: AP view of the chest FINDINGS: Cardiac silhouette is enlarged. Emphysema with chronic interstitial coarsening. Layering pleural effusions, increased in size on the right. Pulmonary vascular congestion with progressive right basilar consolidation. IMPRESSION: 1. Cardiomegaly with pulmonary vascular congestion. 2. Emphysema and chronic interstitial coarsening. 3. Layering pleural effusions, increased in size on the right. 4. Progressive right basilar consolidation which may represent atelectasis versus pneumonia. ACT 112: Negative or not required by law. The above report was generated using voice recognition software. It may contain grammatical, syntax or spelling errors. Electronically signed by: Nhan Harry M.D. 12/03/2023 6:53 PM Discharge Plan Visit Data Chief Complaint: Shortness of Breath/Dyspnea Stated Complaint: ABDOMINAL/RT FLANK PAIN, SOB/CAN'T BREATH ED Provider: Jacoby Hodge Discharge Problem: Respiratory failure, Pneumonia, Acute exacerbation of chronic obstructive pulmonary disease Patient Disposition: Being Evaluated by Hospitalist Forms Stand Alone Forms: My [facility] Prescriptions Prescriptions: No Action albuterol sulfate [Ventolin HFA] 90 mcg/actuation HFA aerosol inhaler 2 puff inhalation Q4H PRN (Reason: shortness of breath ,coughing or wheezing) Qty: 18 5RF fluticasone propionate [Flonase Allergy Relief] 50 mcg/actuation spray,suspension 1 spray intranasal BID Qty: 18.2 2RF Rx Instructions: administer into each nostril aspirin 81 mg tablet 81 mg PO DAILY clonazepam 0.5 mg tablet 0.5 mg PO BID PRN (Reason: Anxiety) aripiprazole [Abilify] 5 mg tablet 5 mg PO DAILY Incruse Ellipta 62.5 mcg/actuation blister with device 1 inh inhalation DAILY Qty: 90 3RF cetirizine 10 mg tablet 10 mg PO DAILY losartan 50 mg tablet 50 mg PO BID amlodipine 10 mg tablet 10 mg PO DAILY carvedilol 25 mg Tablet 25 mg PO BID Rx Instructions: must administer with a meal/food atorvastatin 20 mg Tablet 20 mg PO DAILY paroxetine HCl 40 mg Tablet 40 mg PO DAILY terazosin 1 mg Capsule 2 mg PO HS Qty: 30 0RF benzonatate 100 mg Capsule 100 mg PO TID PRN (Reason: cough) Qty: 20 0RF hydralazine 50 mg Tablet 50 mg PO TID Qty: 90 0RF albuterol sulfate 2.5 mg /3 mL (0.083 %) solution for nebulization 2.5 mg INH Q4H PRN (Reason: shortness of breath or wheezing) Qty: 180 3RF furosemide 20 mg Tablet 20 mg PO BID Qty: 60 0RF alendronate 70 mg tablet 70 mg PO WK Rx Instructions: Have not started this acetaminophen 650 mg Tablet Extended Release 650 mg PO Q8H PRN (Reason: Pain) ergocalciferol (vitamin D2) [Vitamin D2] 1,250 mcg (50,000 unit) Capsule 1,250 mcg PO WK ipratropium-albuterol 0.5 mg-3 mg(2.5 mg base)/3 mL Solution For Nebulization 3 ml NEB QIDR 7 Days Qty: 90 1RF spironolactone 25 mg Tablet 50 mg PO QAM 30 Days Qty: 60 1RF Referrals Referrals: Stefany Benitez MD [Primary Care Provider] - Discharge Problem: Respiratory failure Qualifiers: Chronicity: acute Respiratory failure complication: hypoxia Qualified Code(s): J96.01 - Acute respiratory failure with hypoxia Pneumonia Qualifiers: Pneumonia type: due to unspecified organism Laterality: unspecified laterality Lung location: unspecified part of lung Qualified Code(s): J18.9 - Pneumonia, unspecified organism
[2023-12-03] MEDS: dexAMETHasone**PF** 10 MG/ML VIAL IV ONE (18:12)
[2023-12-03] MEDS: ALBUT/IPRATROP 3MG/0.5MG NEB 3 ML VIAL NEB ONE (18:14)
[2023-12-03 18:44] LABS: Basophils # (auto) 0.06 K/uL (0.00-0.20); Basophils % (auto) 0.5 %; Eosinophils # (auto) 0.07 K/uL (0.00-0.50); Eosinophils % (auto) 0.6 %; Hematocrit (blood only) 30.5 % (37.0-47.0); Hemoglobin 10.3 g/dl (12.0-16.0); Immature Granulocytes # (auto) 0.08 K/uL (0.01-0.20); Immature Granulocytes % (auto) 0.7 %; Lymphocytes # (auto) 1.61 K/uL (1.20-3.40); Lymphocytes % (auto) 13.4 %; Mean Corpuscular Hemoglobin 29.4 pg (25.0-34.0); Mean Corpuscular Hgb Conc 33.8 g/dL (32.0-36.0); Mean Corpuscular Volume 87.1 fL (80.0-100.0); Mean Platelet Volume 10.7 fL (9.4-12.4); Monocytes # (auto) 0.66 K/uL (0.11-0.59); Monocytes % (auto) 5.5 %; Neutrophils # (auto) 9.51 K/uL (1.40-6.50); Neutrophils % (auto) 79.3 %; Platelet Count 198 K/uL (130-400); RDW Coefficient of Variation 15.9 % (11.5-14.5); RDW Standard Deviation 49.8 fL (36.4-46.3); White Blood Count 11.99 K/ul (4.8-10.8)
--- NOTE | 2023-12-03 18:54 | XRay Report ---
XR chest 1V portable HISTORY: 58 years-old Female Dyspnea acute shortness of breath COMPARISON: 11/30/2023 TECHNIQUE: AP view of the chest FINDINGS: Cardiac silhouette is enlarged. Emphysema with chronic interstitial coarsening. Layering pleural effu sions, increased in size on the right. Pulmonary vascular congestion with progressive right basilar c onsolidation. IMPRESSION: 1. Cardiomegaly with pulmonary vascular congestion. 2. Emphysema and chronic interstitial coarsening. 3. Layering pleural effusions, increased in size on the right. 4. Progressive right basilar consolidation which may represent atelectasis versus pneumonia. ACT 112: Negative or not required by law. The above report was generated using voice recognition software. It may contain grammatical, syntax o r spelling errors. Electronically signed by: Nhan Harry M.D. 12/03/2023 6:53 PM
[2023-12-03 18:57] LABS: Base Excess VBG -3.8 mEq/L; HCO3 VBG 22 mmol/L; Oxygen Saturation VBG 93.6 %; PCO2 VBG 39 mmHg (38-50); PO2 VBG 67 mmHg; pH VBG 7.35 (7.36-7.41)
[2023-12-03 19:01] LABS: Albumin Globulin Ratio 1.7 (0.9-2); Albumin Level 4.3 gm/dl (3.4-5.0); BUN Creatinine Ratio 13.9 (10-20); Bilirubin,Total 1.5 mg/dl (0.2-1.0); C Reactive Protein 2.23 mg/dl (0-0.5); Calcium 8.4 mg/dl (8.6-10.3); Creatinine Clr Calc Pharmacy 42.7 ml/min; Est GFR (African American) 61.2 ml/min; Est GFR (Non-African American) 52.8 ml/min; Globulin 2.6 gm/dl (2.5-4.0); Potassium 3.8 mmol/L (3.5-5.1); Total Protein 6.9 gm/dl (6.0-8.3)
[2023-12-03 19:07] LABS: Troponin I High Sensitivity 15.8 pg/ml (0-14)
[2023-12-03] MEDS: cefTRIAXone SODIUM 2,000 MG/50 ML BAG IV STA (19:24)
[2023-12-03 19:26] LABS: Adenovirus PCR Not Detected (NotDetected); Bordetella parapertussis PCR Not Detected (NotDetected); Bordetella pertussis PCR Not Detected (NotDetected); Chlamydia pneumoniae PCR Not Detected (NotDetected); Coronavirus 229E PCR Not Detected (NotDetected); Coronavirus CoV-2 (COVID19)PCR Not Detected (NotDetected); Coronavirus HKU1 PCR Not Detected (NotDetected); Coronavirus NL63 PCR Not Detected (NotDetected); Coronavirus OC43PCR Not Detected (NotDetected); Human Metapneumovirus PCR Not Detected (NotDetected); Influenza A PCR Not Detected (NotDetected); Influenza B PCR Not Detected (NotDetected); Mycoplasma pneumoniae PCR Not Detected (NotDetected); Parainfluenza Virus 1 PCR Not Detected (NotDetected); Parainfluenza Virus 2 PCR Not Detected (NotDetected); Parainfluenza Virus 3 PCR Not Detected (NotDetected); Parainfluenza Virus 4 PCR Not Detected (NotDetected); Respiratory Syncytial VirusPCR Not Detected (NotDetected); Rhinovirus/Enterovirus PCR Not Detected (NotDetected)
--- NOTE | 2023-12-03 21:16 | History & Physical Report ---
Date of Service December 03, 2023 Assessment & Plan (1) Acute exacerbation of chronic obstructive pulmonary disease: Plan: 58-year-old female with past medical history significant for hyperlipidemia, moderate COPD, history of left lung neoplasm s/p lobectomy, history of tobacco abuse states currently not smoking since last 3 months, hypertension, anxiety, depression, bipolar disorder, hyperlipidemia, abdominal aortic stenosis, diastolic CHF, hypertension, GERD, dysplasia of cervix low-grade, osteoporosis, heterogeneous factor V Leyden mutation, history of condyloma acuminatum, presents with shortness of breath going on for last 2 days. Also has lower rib pain which is getting better. Has some cough. Denies any fevers. Walking short distance making her short of breath. Has orthopnea. No headache. No sore throat or earache. No runny nose. Appetite is down. No nausea or abdominal pain. Normal bowel and bladder movements. Denies any rash. Outpatient labs on November 14 showed creatinine of 2.5 and potassium of 5.6 and since then Lasix, spironolactone and losartan are on hold. Repeat labs in November 24, 2023 showed potassium 4.3 creatinine 1.3 . Shortness of breath Mostly acute COPD exacerbation and acute diastolic CHF Acute COPD exasperation Possible pneumonia Nebs [id number] and as needed IV Solu-Medrol Rocephin Procalcitonin negative Consult pulmonary Will monitor Acute diastolic CHF Will place on IV Lasix 40 mg twice daily Echo Telemetry Consult cardiology in a.m. for further recommendations History of left lung neoplasm status post lobectomy Recently had CT chest Follows with pulmonary Hypertension In October when she was in the hospital she had hypertensive urgency She was discharged on on amlodipine, hydralazine, losartan, spironolactone, terazosin, Coreg Currently Lasix, losartan and spironolactone are on hold as labs done on November 14 showed potassium of 5.6 and creatinine of 2.5 We will monitor the blood pressure Elevated troponin Denies chest pain We will follow serial enzymes and echo Severe abdominal aortic stenosis Follow-up with vascular surgery Hyperlipidemia On statin DVT prophylaxis Lovenox Disposition Telemetry Full code History of Present Illness Chief Complaint: Shortness of breath Primary Care Provider: Stefany Benitez MD 58-year-old female with past medical history significant for hyperlipidemia, moderate COPD, history of left lung neoplasm s/p lobectomy, history of tobacco abuse states currently not smoking since last 3 months, hypertension, anxiety, depression, bipolar disorder, hyperlipidemia, abdominal aortic stenosis, diastolic CHF, hypertension, GERD, dysplasia of cervix low-grade, osteoporosis, heterogeneous factor V Leyden mutation, history of condyloma acuminatum, presents with shortness of breath going on for last 2 days. Also has lower rib pain which is getting better. Has some cough. Denies any fevers. Walking short distance making her short of breath. Has orthopnea. No headache. No sore throat or earache. No runny nose. Appetite is down. No nausea or abdomi nal pain. Normal bowel and bladder movements. Denies any rash. Outpatient labs on November 14 showed creatinine of 2.5 and potassium of 5.6 and since then Lasix, spironolactone and losartan are on hold. Repeat labs in November 24, 2023 showed potassium 4.3 creatinine 1.3 . Past medical history. As mentioned above Past surgical history. Left breast biopsy. Bronchoscopy. Cryocautery of ce rvix. Dilatation curettage for missed . Lumbar findings fusion. Lymphadenectomy via thoracoscopic on left side. Puncture drainage of left breast cyst. Removal of jaw joint cartilage. Left single lobectomy of lung. Social history. Quit smoking in March 2023. Smoked 1 pack a day for 39 years. Alcohol not drinking currently. No drug use. Family history. Brother has allergies. Father had allergies. Diabetes. Suicide attempts. Mother had breast cancer. COPD. Peripheral vascular disease. Thyroid disorder. Sister has asthma. Sister has multiple sclerosis. Allergies Allergy/AdvReac Type Severity Reaction Status Date / Time Bactrim Allergy Intermediate HIVES Verified 07/26/15 07:15 Sulfa (Sulfonamide Allergy Intermediate BACTRIM- Verified 11/08/23 16:52 Antibiotics) HIVES sulfamethoxazole Allergy Intermediate HIVES Verified 11/08/23 16:52 trimethoprim Allergy Intermediate HIVES Verified 11/08/23 16:52 erythromycin base Allergy Unknown Verified 11/08/23 16:52 metaxalone Allergy Unknown Verified 11/08/23 16:52 morphine Allergy Unknown . Verified 11/08/23 16:52 neomycin Allergy Unknown Verified 11/08/23 16:52 Quinolones Allergy Unknown Verified 11/08/23 16:52 tetracycline Allergy Unknown Verified 11/08/23 16:52 amoxicillin [From Augmentin] Allergy Verified 11/08/23 16:52 clavulanic acid Allergy Verified 11/08/23 16:52 [From Augmentin] umeclidinium Allergy Verified 11/08/23 16:52 [From Anoro Ellipta] vilanterol Allergy Verified 11/08/23 16:52 [From Anoro Ellipta] moxifloxacin AdvReac Unknown hives Verified 11/08/23 16:52 Home Medications Medication Instructions Recorded Confirmed Type aripiprazole 5 mg tablet (Abilify) 5 mg PO DAILY 12/03/19 12/03/23 History aspirin 81 mg tablet 81 mg PO DAILY 02/04/20 12/03/23 History cetirizine 10 mg tablet 10 mg PO DAILY 02/04/20 12/03/23 History clonazepam 0.5 mg tablet 0.5 mg PO BID PRN Anxiety 02/04/20 12/03/23 History amlodipine 10 mg tablet 10 mg PO DAILY 08/01/21 12/03/23 History losartan 50 mg tablet 50 mg PO BID 08/01/21 12/03/23 History albuterol sulfate 90 mcg/actuation 2 puff inhalation Q4H PRN 02/20/22 12/03/23 Rx aerosol inhaler (Ventolin HFA) shortness of breath ,coughing or wheezing #18 grams atorvastatin 20 mg tablet 20 mg PO DAILY 06/11/23 12/03/23 History carvedilol 25 mg tablet 25 mg PO BID 06/11/23 12/03/23 History paroxetine HCl 40 mg tablet 40 mg PO DAILY 06/11/23 12/03/23 History albuterol sulfate 2.5 mg/3 mL 2.5 mg (3 mL) inhalation Q4H PRN 06/15/23 12/03/23 Rx (0.083 %) solution for nebulization shortness of breath or wheezing #180 mL benzonatate 100 mg capsule 100 mg PO TID PRN cough #20 caps 06/15/23 12/03/23 Rx furosemide 20 mg tablet 20 mg PO BID #60 tabs 06/15/23 12/03/23 Rx hydralazine 50 mg tablet 50 mg PO TID #90 tabs 06/15/23 12/03/23 Rx terazosin 1 mg capsule 2 mg (2 x 1 mg) PO HS #30 caps 06/15/23 12/03/23 Rx umeclidinium 62.5 mcg/actuation 1 inh inhalation DAILY #90 puffs 07/10/23 12/03/23 Rx blister powder for inhalation (Incruse Ellipta) fluticasone propionate 50 1 spray intranasal BID #18.2 mL 10/19/23 12/03/23 Rx mcg/actuation nasal spray,suspension (Flonase Allergy Relief) acetaminophen 650 mg 650 mg PO Q8H PRN Pain 10/21/23 12/03/23 History tablet,extended release alendronate 70 mg tablet 70 mg PO WK 10/21/23 12/03/23 History ergocalciferol (vitamin D2) 1,250 1,250 mcg PO WK 10/21/23 12/03/23 History mcg (50,000 unit) capsule (Vitamin D2) ipratropium 0.5 mg-albuterol 3 mg 3 ml NEB QIDR 7 days #90 mL 10/27/23 12/03/23 Rx (2.5 mg base)/3 mL nebulization soln spironolactone 25 mg tablet 50 mg (2 x 25 mg) PO QAM 30 days 10/27/23 12/03/23 Rx #60 tabs Past Med/Surg History Medical History Pleural effusion Atelectasis Acute CHF Anaphylaxis History of temporomandibular joint disorder GERD (gastroesophageal reflux disease) Bipolar disorder Essential hypertension Breast fibroadenoma Dyslipidemia 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 Malignant neoplasm of upper lobe, left bronchus or lung Pulmonary emphysema Pulmonary nodule Arthritis Allergic rhinitis Lumbar stenosis (09/25/14) Surgical History History of D&C History of lumbar surgery H/O breast surgery H/O splenectomy Family History Father Hypertension Mother Lung cancer Other Breast cancer COPD (chronic obstructive pulmonary disease) Diabetes Social History Smoking Status: Former smoker Tobacco Type: Cigarettes Cigarettes Per Day: 3; Second Hand Exposure: No; Tobacco Cessation Education Requested by Patient: No Hx Alcohol Use: No Hx Substance Use: No Preferred Language: [place] Communication Ability: Effective Meter Maker Required: No Beliefs That Will Affect Care: None marital status: Current Living Situation: Significant Other current occupational status: disabled Other Information That Helps Us Care for You: No Feels Safe at Home: Yes Safety Concerns: Feels Safe At This Time Assistive Devices: Nebulizer Review of Systems Review of Systems: All systems reviewed & are unremarkable except as noted in HPI & below Physical Exam Physical Exam: General- adult Head- atraumatic Eyes- PERRL, EOMI, anicteric Neck- supple, no JVD. Lungs- clear to auscultation mild bilateral crackles and mild wheezing Heart- regular rhythm; no murmur, no gallop. Abdomen- normal bowel sounds, soft, nontender, no distension. Extremities- b/l lower extremity edema present, no erythema seen. Neuro- alert, oriented ; PERRL, no facial palsy; no dysarthria; moves extremities. Results & Data Results & Data Vital Signs (Past 12 Hours) Vital Signs Temp Pulse Pulse Resp BP Pulse Ox O2 Del Method 12/03/23 20:30 79 12 96 Nasal Cannula 12/03/23 20:30 164/76 H 12/03/23 20:00 82 25 H 99 12/03/23 20:00 154/81 H 12/03/23 19:30 75 13 98 12/03/23 19:30 159/81 H 12/03/23 19:00 75 16 97 Nebulizer 12/03/23 19:00 177/86 H 12/03/23 18:32 78 12/03/23 18:30 77 16 99 12/03/23 18:30 162/80 H 12/03/23 18:16 79 17 98 Nasal Cannula 12/03/23 18:04 77 26 H 97 12/03/23 17:53 96 Nasal Cannula 12/03/23 17:45 Room Air 12/03/23 17:45 36.6 C 92 H 16 227/95 H 82 L Room Air O2 Flow Rate 12/03/23 20:30 5 12/03/23 20:30 12/03/23 20:00 12/03/23 20:00 12/03/23 19:30 12/03/23 19:30 12/03/23 19:00 12/03/23 19:00 12/03/23 18:32 12/03/23 18:30 12/03/23 18:30 12/03/23 18:16 6 12/03/23 18:04 12/03/23 17:53 6 12/03/23 17:45 12/03/23 17:45 Diagnostic Findings Laboratory Results WBC 11.99 K/ul (4.8-10.8) H 12/03/23 18:15 RBC 3.50 M/uL (4.20-5.40) L 12/03/23 18:15 Hgb 10.3 g/dl (12.0-16.0) L 12/03/23 18:15 Hct 30.5 % (37.0-47.0) L 12/03/23 18:15 MCV 87.1 fL (80.0-100.0) 12/03/23 18:15 MCH 29.4 pg (25.0-34.0) 12/03/23 18:15 MCHC 33.8 g/dL (32.0-36.0) 12/03/23 18:15 RDW Std Deviation 49.8 fL (36.4-46.3) H 12/03/23 18:15 RDW Coeff of Shanna 15.9 % (11.5-14.5) H 12/03/23 18:15 Plt Count 198 K/uL (130-400) 12/03/23 18:15 MPV 10.7 fL (9.4-12.4) 12/03/23 18:15 Immature Gran % (Auto) 0.7 % 12/03/23 18:15 Neut % (Auto) 79.3 % 12/03/23 18:15 Lymph % (Auto) 13.4 % 12/03/23 18:15 Sully % (Auto) 5.5 % 12/03/23 18:15 Eos % (Auto) 0.6 % 12/03/23 18:15 Baso % (Auto) 0.5 % 12/03/23 18:15 Neut # (Auto) 9.51 K/uL (1.40-6.50) H 12/03/23 18:15 Lymph # (Auto) 1.61 K/uL (1.20-3.40) 12/03/23 18:15 Sully # (Auto) 0.66 K/uL (0.11-0.59) H 12/03/23 18:15 Eos # (Auto) 0.07 K/uL (0.00-0.50) 12/03/23 18:15 Baso # (Auto) 0.06 K/uL (0.00-0.20) 12/03/23 18:15 Immature Gran # (Auto) 0.08 K/uL (0.01-0.20) 12/03/23 18:15 VBG pH 7.35 (7.36-7.41) L 12/03/23 18:49 VBG pCO2 39 mmHg (38-50) 12/03/23 18:49 VBG pO2 67 mmHg 12/03/23 18:49 VBG HCO3 22 mmol/L 12/03/23 18:49 VBG O2 Saturation 93.6 % 12/03/23 18:49 VBG Base Excess -3.8 mEq/L 12/03/23 18:49 Sodium 134 mmol/L (136-145) L 12/03/23 18:15 Potassium 3.8 mmol/L (3.5-5.1) 12/03/23 18:15 Chloride 103 mmol/L (98-107) 12/03/23 18:15 Carbon Dioxide 22 mmol/L (21-32) 12/03/23 18:15 Anion Gap 9 (3-11) 12/03/23 18:15 BUN 16 mg/dl (6-23) 12/03/23 18:15 Creatinine 1.15 mg/dl (0.6-1.2) 12/03/23 18:15 Est Cr Clr Drug Dosing 42.7 ml/min 12/03/23 18:15 Est GFR ( Amer) 61.2 ml/min 12/03/23 18:15 Est GFR (Non-Af Amer) 52.8 ml/min 12/03/23 18:15 BUN/Creatinine Ratio 13.9 (10-20) 12/03/23 18:15 Glucose 112 mg/dl (70-99(Fasting)) H 12/03/23 18:15 Calcium 8.4 mg/dl (8.6-10.3) L 12/03/23 18:15 Total Bilirubin 1.5 mg/dl (0.2-1.0) H 12/03/23 18:15 AST 20 U/L (13-39) 12/03/23 18:15 ALT 17 U/L (7-52) 12/03/23 18:15 Alkaline Phosphatase 88 U/L (34-104) 12/03/23 18:15 Troponin I High Sens 15.8 pg/ml (0-14) H 12/03/23 18:15 C-Reactive Protein 2.23 mg/dl (0-0.5) H 12/03/23 18:15 Total Protein 6.9 gm/dl (6.0-8.3) 12/03/23 18:15 Albumin 4.3 gm/dl (3.4-5.0) 12/03/23 18:15 Globulin 2.6 gm/dl (2.5-4.0) 12/03/23 18:15 Albumin/Globulin Ratio 1.7 (0.9-2) 12/03/23 18:15 Procalcitonin < 0.02 ng/ml (0-0.5) 12/03/23 18:15 Adenovirus (PCR) Not Detected (NotDetected) 12/03/23 18:15 B. pertussis DNA (PCR) Not Detected (NotDetected) 12/03/23 18:15 B.parapertussis DNA PCR Not Detected (NotDetected) 12/03/23 18:15 C. pneumoniae DNA (PCR) Not Detected (NotDetected) 12/03/23 18:15 Coronavirus OC43 (PCR) Not Detected (NotDetected) 12/03/23 18:15 Coronavirus HKU1 (PCR) Not Detected (NotDetected) 12/03/23 18:15 Coronavirus 229E (PCR) Not Detected (NotDetected) 12/03/23 18:15 SARS-CoV-2 (PCR) Not Detected (NotDetected) 12/03/23 18:15 Coronavirus NL63 (PCR) Not Detected (NotDetected) 12/03/23 18:15 Human Metapneumovir PCR Not Detected (NotDetected) 12/03/23 18:15 Influenza Type A (PCR) Not Detected (NotDetected) 12/03/23 18:15 Influenza Type B (PCR) Not Detected (NotDetected) 12/03/23 18:15 M. pneumoniae (PCR) Not Detected (NotDetected) 12/03/23 18:15 Parainfluenza 1 (PCR) Not Detected (NotDetected) 12/03/23 18:15 Parainfluenza 2 (PCR) Not Detected (NotDetected) 12/03/23 18:15 Parainfluenza 3 (PCR) Not Detected (NotDetected) 12/03/23 18:15 Parainfluenza 4 (PCR) Not Detected (NotDetected) 12/03/23 18:15 RSV (PCR) Not Detected (NotDetected) 12/03/23 18:15 Entero/Rhino (PCR) Not Detected (NotDetected) 12/03/23 18:15 Impressions Chest X-Ray 12/03/23 17:53 XR chest 1V portable HISTORY: 58 years-old Female Dyspnea acute shortness of breath COMPARISON: 11/30/2023 TECHNIQUE: AP view of the chest FINDINGS: Cardiac silhouette is enlarged. Emphysema with chronic interstitial coarsening. Layering pleural effusions, increased in size on the right. Pulmonary vascular congestion with progressive right basilar consolidation. IMPRESSION: 1. Cardiomegaly with pulmonary vascular congestion. 2. Emphysema and chronic interstitial coarsening. 3. Layering pleural effusions, increased in size on the right. 4. Progressive right basilar consolidation which may represent atelectasis versus pneumonia. ACT 112: Negative or not required by law. The above report was generated using voice recognition software. It may contain grammatical, syntax or spelling errors. Electronically signed by: Nhan Harry M.D. 12/03/2023 6:53 PM ECG Additional Comments: ECG. Sinus rhythm with PACs with rate of 77. Possible left atrial enlargement. T wave inversions in anterior leads. Code Status & VTE Plan VTE Prophylaxis Plan VTE Prophylaxis will be ordered: Yes
[2023-12-03] MEDS ORDERED: POLYETHYLENE (MIRALAX) 17 GM PACK PO PRN (22:33)
[2023-12-03] MEDS ORDERED: NITROGLYCERIN SL 0.4 MG/TAB TAB SL PRN (22:33)
[2023-12-03] MEDS ORDERED: ALBUTEROL HFA 8 GM INHALER INH PRN (22:33)
[2023-12-03] MEDS ORDERED: BENZONATATE 100 MG CAPSULE PO PRN (22:33)
[2023-12-03] MEDS: FLUTICASONE PROPIONATE NA SPR 16 GM BTL SCH (23:28)
[2023-12-03] MEDS: ENOXAPARIN INJ 40 MG/0.4 ML SYR SQ SCH (23:29)
[2023-12-03] MEDS: FUROSEMIDE 40 MG/4 ML VIAL IV SCH (23:29)
[2023-12-03] MEDS: carvediloL 25 MG TAB PO SCH (23:30)
[2023-12-03] MEDS: TERAZOSIN HCL 1 MG CAP PO SCH (23:31)
[2023-12-03] MEDS: hydrALAZINE TAB 50 MG TAB PO SCH (23:33)
[2023-12-03] MEDS: LOSARTAN POTASSIUM 50 MG TAB PO SCH (23:43)
[2023-12-04] MEDS: methylPREDNISolone 40 MG in SYRINGE 0 ML IV SCH (05:36)
[2023-12-04 07:04] LABS: Hematocrit (blood only) 29.4 % (37.0-47.0); Hemoglobin 9.9 g/dl (12.0-16.0); Mean Corpuscular Hemoglobin 29.1 pg (25.0-34.0); Mean Corpuscular Hgb Conc 33.7 g/dL (32.0-36.0); Mean Corpuscular Volume 86.5 fL (80.0-100.0); Mean Platelet Volume 10.2 fL (9.4-12.4); Platelet Count 187 K/uL (130-400); RDW Coefficient of Variation 15.7 % (11.5-14.5); White Blood Count 4.42 K/ul (4.8-10.8)
[2023-12-04 07:17] LABS: BUN Creatinine Ratio 16.4 (10-20); Creatinine Clr Calc Pharmacy 44.6 ml/min; Est GFR (African American) 64.5 ml/min; Est GFR (Non-African American) 55.7 ml/min; Magnesium 1.9 mg/dl (1.7-2.4); Potassium 4.1 mmol/L (3.5-5.1)
[2023-12-04] MEDS: ALBUT/IPRATROP 3MG/0.5MG NEB 3 ML VIAL NEB SCH (07:23)
[2023-12-04 07:24] LABS: Troponin I High Sensitivity 10.6 pg/ml (0-14)
[2023-12-04 07:48] LABS: Basophils # (auto) 0.01 K/uL (0.00-0.20); Basophils % (auto) 0.2 %; Immature Granulocytes # (auto) 0.01 K/uL (0.01-0.20); Immature Granulocytes % (auto) 0.2 %; Lymphocytes # (auto) 0.48 K/uL (1.20-3.40); Lymphocytes % (auto) 10.9 %; Monocytes # (auto) 0.02 K/uL (0.11-0.59); Monocytes % (auto) 0.5 %; Neutrophils % (auto) 88.2 %; Polychromasia 1+
--- NOTE | 2023-12-04 08:34 | Electrocardiogram Report ---
Test Reason : Blood Pressure : / mmHG Vent. Rate : 077 BPM Atrial Rate : 077 BPM P-R Int : 158 ms QRS Dur : 076 ms QT Int : 424 ms P-R-T Axes : 064 -02 068 degrees QTc Int : 479 ms Sinus rhythm with Premature atrial complexes Left atrial enlargement Incomplete right bundle branch block Borderline ECG When compared with ECG of 21-OCT-2023 07:14, Premature atrial complexes are now Present Confirmed by Bronson Tilley ([id number]) on 12/04/2023 8:34:16 AM Referred By: REFERRED SELF Confirmed By:Bronson Tilley
--- NOTE | 2023-12-04 08:54 | Cardiology Consultation ---
Date of Consultation December 04, 2023 Assessment & Plan (1) Acute exacerbation of chronic obstructive pulmonary disease: (2) Acute on chronic diastolic heart failure with preserved ejection fraction: (3) Hypertensive urgency: (4) CKD (chronic kidney disease) stage 2, GFR 60-89 ml/min: Plan Patient readmitted for hypertensive urgency, acute on chronic HFpEF, and COPD exacerbation recent admission for similar presentation in Oct 2023 At that time, furosemide increased to 40 BID, spironolactone started at 50 mg. F/U labs as outpatient demonstrated GARLAND with creatinine of 2.5 and hyperkalemia of 5.6. renal function/potassium now improved at baseline Patient presenting with signs/symptoms of acute HFpEF with evidence of volume overload on exam and small b/l pleural effusions on xray. Started on furosemide 40 mg IV BID. Monitor renal function and electrolytes. Monitor I+O's Daily weight standing scale. Volume status improving today. Hold AM diuretics on 12/04 until labs reviewed and patient evaluated. Patient remains hypertensive. continue Amlodipine 10 mg daily Continue carvedilol 25 mg BID Continue hydralazine 50 mg TID Continue Terazosin 2 mg HS Resume lower dose losartan 50 mg daily. She was previously on losartan 50 BID for years without GARLAND and hyperkalemia. This was likely due to initiation of furosemide/spironolactone last admission. Echo with preserved EF, mild diastolic dysfunction. Case discussed with Dr. Rush Sarah spent a total of 65 minutes on the date of service in preparation, delivery, and documentation of the care provided to this patient, excluding any time spent in the performance of separately billed services. Carlyn Day PA-C Department of Cardiology, [facility] This chart was completed in part utilizing Speech Voice Recognition Software. Grammatical errors, random word insertions, pronoun errors, and incomplete s entences are an occasional consequence of this system due to software limitations, ambient noise, and hardware issues. Any formal questions or concerns about the content, text, or information contained within the body of this dictation should be directly addressed to the provider for clarification. Supervising Physician Co-Signing Physician Notes Patient was seen and personally examined. Inpatient and outpatient records reviewed as well as telemetry. Agree with full assessment and plan as outlined above Patient presenting with mixed respiratory distress component of diastolic heart failure with recent reduction in diuretic dose, hypertensive urgency Plan as outlined above Of note patient scheduled to be seen by vascular surgery for concerns regarding aortic abdominal disease question obstruction though not confirmed on aortic duplex. Abdominal CTA scheduled for today was canceled History of Present Illness Reason for Consultation: SOB; CHF; Acute on chronic respiratory failure Requesting Physician: Dr. Stanton Attending Physician: Dr. Beverly History of Present Illness Patient is a 58 year old female who presented to [facility] with complaints of worsening SOB. Known to [facility] cardiology, Dr. Cuevas. History includes: Emphysema Lung cancer, adenocarcinoma, status post left upper lobe resection History of difficult to control hypertension Dyslipidemia Abdominal atherosclerosis with recent Duplex concerning for severe abdominal aortic stenosis. Patient is to see vascular surgery as an outpatient this week. Gastroesophageal reflux Chronic HFpEF CKD COPD Patient admitted in Oct 2023 with worsening SOB, treated for COPD exacerbation, hypertensive urgency. Nephrology was consulted due to HTN and CKD. Lasix 40 mg BID was initiated on discharge, with spironolactone 50 mg. Upon f/u labs she was found to have GARLAND with creatinine of 2.5 and potassium of 5.6 on 11/14. At that time, losartan, spironolactone and furosemide were discontinued. F/U labs showed improvement in her renal function. Meds were not resumed. Patient reported worsening SOB and edema over the last week and last night her symptoms became acutely worse so she came back to the ER for evaluation. She was hypertensive on arrival. Chest xray consistent with small b/l pleural effusions. HS troponin at 15, repeat at 10. No acute ischemic changes on EKG. At time of consult, patient resting in bed. SOB has improved from admission. Ongoing wheeze and cough reported. No chest pain. No dizziness. Edema improved from admission, per patient. Allergies Allergy/AdvReac Type Severity Reaction Status Date / Time Bactrim Allergy Intermediate HIVES Verified 07/26/15 07:15 Sulfa (Sulfonamide Allergy Intermediate BACTRIM- Verified 11/08/23 16:52 Antibiotics) HIVES sulfamethoxazole Allergy Intermediate HIVES Verified 11/08/23 16:52 trimethoprim Allergy Intermediate HIVES Verified 11/08/23 16:52 erythromycin base Allergy Unknown Verified 11/08/23 16:52 metaxalone Allergy Unknown Verified 11/08/23 16:52 morphine Allergy Unknown . Verified 11/08/23 16:52 neomycin Allergy Unknown Verified 11/08/23 16:52 Quinolones Allergy Unknown Verified 11/08/23 16:52 tetracycline Allergy Unknown Verified 11/08/23 16:52 amoxicillin [From Augmentin] Allergy Verified 11/08/23 16:52 clavulanic acid Allergy Verified 11/08/23 16:52 [From Augmentin] umeclidinium Allergy Verified 11/08/23 16:52 [From Anoro Ellipta] vilanterol Allergy Verified 11/08/23 16:52 [From Anoro Ellipta] moxifloxacin AdvReac Unknown hives Verified 11/08/23 16:52 Home Medications Medication Instructions Recorded Confirmed Type aripiprazole 5 mg tablet (Abilify) 5 mg PO DAILY 12/03/19 12/03/23 History aspirin 81 mg tablet 81 mg PO DAILY 02/04/20 12/03/23 History cetirizine 10 mg tablet 10 mg PO DAILY 02/04/20 12/03/23 History clonazepam 0.5 mg tablet 0.5 mg PO BID PRN Anxiety 02/04/20 12/03/23 History amlodipine 10 mg tablet 10 mg PO DAILY 08/01/21 12/03/23 History losartan 50 mg tablet 50 mg PO BID 08/01/21 12/03/23 History albuterol sulfate 90 mcg/actuation 2 puff inhalation Q4H PRN 02/20/22 12/03/23 Rx aerosol inhaler (Ventolin HFA) shortness of breath ,coughing or wheezing #18 grams atorvastatin 20 mg tablet 20 mg PO DAILY 06/11/23 12/03/23 History carvedilol 25 mg tablet 25 mg PO BID 06/11/23 12/03/23 History paroxetine HCl 40 mg tablet 40 mg PO DAILY 06/11/23 12/03/23 History albuterol sulfate 2.5 mg/3 mL 2.5 mg (3 mL) inhalation Q4H PRN 06/15/23 12/03/23 Rx (0.083 %) solution for nebulization shortness of breath or wheezing #180 mL benzonatate 100 mg capsule 100 mg PO TID PRN cough #20 caps 06/15/23 12/03/23 Rx furosemide 20 mg tablet 20 mg PO BID #60 tabs 06/15/23 12/03/23 Rx hydralazine 50 mg tablet 50 mg PO TID #90 tabs 06/15/23 12/03/23 Rx terazosin 1 mg capsule 2 mg (2 x 1 mg) PO HS #30 caps 06/15/23 12/03/23 Rx umeclidinium 62.5 mcg/actuation 1 inh inhalation DAILY #90 puffs 07/10/23 12/03/23 Rx blister powder for inhalation (Incruse Ellipta) fluticasone propionate 50 1 spray intranasal BID #18.2 mL 10/19/23 12/03/23 Rx mcg/actuation nasal spray,suspension (Flonase Allergy Relief) acetaminophen 650 mg 650 mg PO Q8H PRN Pain 10/21/23 12/03/23 History tablet,extended release alendronate 70 mg tablet 70 mg PO WK 10/21/23 12/03/23 History ergocalciferol (vitamin D2) 1,250 1,250 mcg PO WK 10/21/23 12/03/23 History mcg (50,000 unit) capsule (Vitamin D2) ipratropium 0.5 mg-albuterol 3 mg 3 ml NEB QIDR 7 days #90 mL 10/27/23 12/03/23 Rx (2.5 mg base)/3 mL nebulization soln spironolactone 25 mg tablet 50 mg (2 x 25 mg) PO QAM 30 days 10/27/23 12/03/23 Rx #60 tabs Patient History Medical History Pleural effusion Atelectasis Acute CHF Anaphylaxis History of temporomandibular joint disorder GERD (gastroesophageal reflux disease) Bipolar disorder Essential hypertension Breast fibroadenoma Dyslipidemia 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 Malignant neoplasm of upper lobe, left bronchus or lung Pulmonary emphysema Pulmonary nodule Arthritis Allergic rhinitis Lumbar stenosis (09/25/14) Surgical History History of D&C History of lumbar surgery H/O breast surgery H/O splenectomy Family History Father Hypertension Mother Lung cancer Other Breast cancer COPD (chronic obstructive pulmonary disease) Diabetes Social History Smoking Status: Former smoker Tobacco Type: Cigarettes Cigarettes Per Day: 3; Second Hand Exposure: No; Tobacco Cessation Education Requested by Patient: No Hx Alcohol Use: No Hx Substance Use: No Preferred Language: Estonian Communication Ability: Effective Health Aid Required: No Beliefs That Will Affect Care: None marital status: Current Living Situation: Significant Other current occupational status: disabled Other Information That Helps Us Care for You: No Feels Safe at Home: Yes Safety Concerns: Feels Safe At This Time Assistive Devices: Nebulizer Review of Systems Review of Systems: All systems reviewed & are unremarkable except as noted in HPI & below Physical Exam Constitutional: WD/WN, vitals as above no acute distress Neck: trachea midline, no thyromegaly Respiratory: + cough; no labored breathing Auscult ation: + diminished lung sounds and + wheezes Cardiovascular: Rate/Rhythm: regular rate and regular rhythm Heart Sounds: normal S1 and normal S2; no murmur Vessels: no JVD Extremities: no edema Gastrointestinal (Abdomen): normal bowel sounds, soft, nontender, no hepatosplenomegaly Skin: no rashes, warm and dry Neurologic: PERRL, EOMI, accommodation nl, no face palsy, no dysarthria Results & Data Vital Signs (Past 12 Hours) Vital Signs Temp Pulse Pulse Resp BP BP Pulse Ox 12/04/23 08:04 36.6 C 80 17 173/75 H 96 12/04/23 07:24 76 18 96 12/04/23 02:46 36.7 C 76 18 162/76 H 98 12/04/23 00:17 77 12/04/23 00:02 165/70 H 12/03/23 22:39 12/03/23 22:30 36.5 C 80 18 181/80 H 96 12/03/23 22:01 78 12/03/23 21:30 79 12 94 12/03/23 21:30 165/83 H 12/03/23 21:00 79 13 96 12/03/23 21:00 158/79 H O2 Del Method O2 Flow Rate 12/04/23 08:04 Nasal Cannula 4 12/04/23 07:24 Nasal Cannula 4 12/04/23 02:46 Nasal Cannula 4 12/04/23 00:17 12/04/23 00:02 12/03/23 22:39 Nasal Cannula 5 12/03/23 22:30 Nasal Cannula 5 12/03/23 22:01 12/03/23 21:30 Nasal Cannula 5 12/03/23 21:30 12/03/23 21:00 12/03/23 21:00 Laboratory Results Cardiac Enzymes 12/03/23 12/04/23 Range/Units 18:15 06:40 AST 20 (13-39) U/L Troponin I High Sens 15.8 H 10.6 D (0-14) pg/ml CBC 12/03/23 12/04/23 Range/Units 18:15 06:40 WBC 11.99 H 4.42 L D (4.8-10.8) K/ul RBC 3.50 L 3.40 L (4.20-5.40) M/uL Hgb 10.3 L 9.9 L (12.0-16.0) g/dl Hct 30.5 L 29.4 L (37.0-47.0) % Plt Count 198 187 (130-400) K/uL Neut # (Auto) 9.51 H 3.90 (1.40-6.50) K/uL Lymph # (Auto) 1.61 0.48 L (1.20-3.40) K/uL [place] # (Auto) 0.66 H 0.02 L (0.11-0.59) K/uL Eos # (Auto) 0.07 0.00 (0.00-0.50) K/uL Baso # (Auto) 0.06 0.01 (0.00-0.20) K/uL Comprehensive Metabolic Panel 12/03/23 12/04/23 Range/Units 18:15 06:40 Sodium 134 L 137 (136-145) mmol/L Potassium 3.8 4.1 (3.5-5.1) mmol/L Chloride 103 104 (98-107) mmol/L Carbon Dioxide 22 23 (21-32) mmol/L BUN 16 18 (6-23) mg/dl Creatinine 1.15 1.10 (0.6-1.2) mg/dl Glucose 112 H 122 H (70-99(Fasting)) mg/dl Calcium 8.4 L 8.0 L (8.6-10.3) mg/dl AST 20 (13-39) U/L ALT 17 (7-52) U/L Alkaline Phosphatase 88 (34-104) U/L Total Protein 6.9 (6.0-8.3) gm/dl Albumin 4.3 (3.4-5.0) gm/dl Intake and Output 12/03/23 12/04/23 12/04/23 22:59 06:59 14:59 Intake Total 50 / 300 250 / 300 Output Total 800 / 800 Balance 50 / -500 -550 / -500 Intake: IV 50 / 50 cefTRIAXone SODIUM 2,000 mg In 50 / 50 50 ml @ 100 mls/hr IV NOW STA Rx#:[id number] Oral 250 / 250 Output: Urine 800 / 800 Other: Weight 51.7 kg 50.394 kg Weight Measurement Method Built in Bedscale Built in Bedscale Diagnostic Findings Telemetry reviewed: NSR in the 's. No arrhythmias Echo report reviewed: Compared to prior study - No changes noted. Mild concentric LVH LV is normal in size Normal wall motion EF 55-60% Grade I diastolic dysfunction No pulm hypertension mild MR trivial pericardial effusion without hemodynamic significance. EKG reviewed from admission 12/03/23: NSR with PAC's, LA enlargement Incomplete RBBB No significant change from previous Chest X-Ray 12/03/23 17:53 XR chest 1V portable HISTORY: 58 years-old Female Dyspnea acute shortness of breath COMPARISON: 11/30/2023 TECHNIQUE: AP view of the chest FINDINGS: Cardiac silhouette is enlarged. Emphysema with chronic interstitial coarsening. Layering pleural effusions, increased in size on the right. Pulmonary vascular congestion with progressive right basilar consolidation. IMPRESSION: 1. Cardiomegaly with pulmonary vascular congestion. 2. Emphysema and chronic interstitial coarsening. 3. Layering pleural effusions, increased in size on the right. 4. Progressive right basilar consolidation which may represent atelectasis versus pneumonia. ACT 112: Negative or not required by law. The above report was generated using voice recognition software. It may contain grammatical, syntax or spelling errors. Electronically signed by: Nhan Harry M.D. 12/03/2023 6:53 PM Medications Administered Current Inpatient Medications Acetaminophen (Acetaminophen 325 Mg Tab) 650 mg PO Q4H PRN PRN Reason: Pain or Fever Stop: 01/02/24 22:32 Albuterol (Albuterol Hfa 8 Gm Inhaler) 2 puffs INH Q4H PRN PRN Reason: shortness of breath ,coughing or wheezing Stop: 01/02/24 22:32 Albuterol (Albut/Ipratrop 3mg/0.5mg Neb 3 Ml Vial) 3 ml NEB QIDR MEDARDO; Protocol Stop: 01/03/24 06:59 Last Admin: 12/04/23 07:23 Dose: 3 ml Albuterol (Albut/Ipratrop 3mg/0.5mg Neb 3 Ml Vial) 3 ml NEB Q4R PRN; Protocol PRN Reason: Shortness Of Breath Or Wheezing Stop: 01/02/24 22:32 Amlodipine Besylate (Amlodipine Besylate 5 Mg Tab) 10 mg PO DAILY MEDARDO Stop: 01/03/24 08:59 Aripiprazole (Aripiprazole 5 Mg Tab) 5 mg PO DAILY MEDARDO Stop: 01/03/24 08:59 Aspirin (Aspirin 81 Mg Ectab) 81 mg PO DAILY MEDARDO Stop: 01/03/24 08:59 Atorvastatin Calcium (Atorvastatin 20 Mg Tab) 20 mg PO DAILY MEDARDO Stop: 01/03/24 08:59 Benzonatate (Benzonatate 100 Mg Capsule) 100 mg PO TID PRN PRN Reason: cough Stop: 01/02/24 22:32 Carvedilol (Carvedilol 25 Mg Tab) 25 mg PO BID MEDARDO Stop: 01/02/24 22:32 Last Admin: 12/03/23 23:30 Dose: 25 mg Cetirizine HCl (Cetirizine Hcl 10 Mg Tablet) 10 mg PO DAILY MEDARDO Stop: 01/03/24 08:59 Clonazepam (Clonazepam 0.5 Mg Tab) 0.5 mg PO BID PRN PRN Reason: Anxiety Stop: 01/02/24 22:32 Enoxaparin Sodium (Enoxaparin Inj 40 Mg/0.4 Ml Syr) 40 mg SQ Q24H MEDARDO Stop: 01/02/24 22:32 Last Admin: 12/03/23 23:29 Dose: 40 mg Fluticasone Propionate (Fluticasone Propionate Na Spr 16 Gm Btl) 1 sprays NA BID MEDARDO Stop: 01/02/24 22:32 Last Admin: 12/03/23 23:28 Dose: 1 sprays Furosemide (Furosemide 40 Mg/4 Ml Vial) 40 mg IV [id number] MEDARDO Stop: 01/02/24 22:32 Last Admin: 12/03/23 23:29 Dose: 40 mg Hydralazine HCl (Hydralazine Tab 50 Mg Tab) 50 mg PO TID MEDARDO Stop: 01/02/24 22:32 Last Admin: 12/03/23 23:33 Dose: 50 mg Ceftriaxone Sodium 1,000 mg/ (Dextrose) 50 mls @ 100 mls/hr IV Q24H [facility]; Protocol Stop: 12/11/23 19:59 Methylprednisolone 40 mg/ (Syringe) 0.64 mls @ 1.5 mls/min IV Q8H MEDARDO Stop: 01/03/24 05:59 Last Admin: 12/04/23 05:36 Dose: 1.5 mls/min Losartan Potassium (Losartan Potassium 50 Mg Tab) 50 mg PO BID MEDARDO Stop: 01/02/24 22:32 Last Admin: 12/03/23 23:43 Dose: Not Given Nitroglycerin (Nitroglycerin Sl 0.4 Mg/Tab Tab) 0.4 mg SL Q5M PRN PRN Reason: Chest Pain Stop: 01/02/24 22:32 Paroxetine HCl (Paroxetine Hcl 20 Mg Tab) 40 mg PO DAILY MEDARDO Stop: 01/03/24 08:59 Polyethylene Glycol (Polyethylene (Miralax) 17 Gm Pack) 17 gm PO DAILY PRN PRN Reason: Constipation Stop: 01/02/24 22:32 Spironolactone (Spironolactone 25 Mg Tab) 50 mg PO QAM [facility] Stop: 01/03/24 08:59 Terazosin HCl (Terazosin Hcl 1 Mg Cap) 2 mg PO HS MEDARDO Stop: 01/02/24 22:32 Last Admin: 12/03/23 23:31 Dose: 2 mg Umeclidinium [place] (Umeclidinium [place] 62.5mcg/Blister 7 Puffs/Inhaler) 1 puffs INH DAILY [facility] Stop: 01/03/24 08:59
[2023-12-04] MEDS ORDERED: SPIRONOLACTONE 25 MG TAB PO SCH (09:00)
[2023-12-04] MEDS: amLODIPine BESYLATE 5 MG TAB PO SCH (09:04)
[2023-12-04] MEDS: ASPIRIN 81 MG ECTAB PO SCH (09:04)
[2023-12-04] MEDS: PARoxetine HCL 20 MG TAB PO SCH (09:04)
[2023-12-04] MEDS: ATORVASTATIN 20 MG TAB PO SCH (09:05)
[2023-12-04] MEDS: CETIRIZINE HCL 10 MG TABLET PO SCH (09:05)
[2023-12-04] MEDS: ARIPiprazole 5 MG TAB PO SCH (09:05)
[2023-12-04] MEDS: UMECLIDINIUM BROMIDE 62.5MCG/BLISTER 7 PUFFS/INHALER INH SCH (09:06)
[2023-12-04] MEDS: LOSARTAN POTASSIUM 50 MG TAB PO SCH (13:51)
--- NOTE | 2023-12-04 14:54 | Hospitalist Progress Note ---
Date of Service December 04, 2023 Assessment & Plan (1) Acute exacerbation of chronic obstructive pulmonary disease: Plan: 58-year-old female with past medical history significant for hyperlipidemia, moderate COPD, history of left lung neoplasm s/p lobectomy, history of tobacco abuse states currently not smoking since last 3 months, hypertension, anxiety, depression, bipolar disorder, hyperlipidemia, abdominal aortic stenosis, diastolic CHF, hypertension, GERD, dysplasia of cervix low-grade, osteoporosis, heterogeneous factor V Leyden mutation, history of condyloma acuminatum, presents with shortness of breath going on for last 2 days. Also has lower rib pain which is getting better. Has some cough. Denies any fevers. Walking short distance making her short of breath. Has orthopnea. No headache. No sore throat or earache. No runny nose. Appetite is down. No nausea or abdominal pain. Normal bowel and bladder movements. Denies any rash. Outpatient labs on November 14 showed creatinine of 2.5 and potassium of 5.6 and since then Lasix, spironolactone and losartan are on hold. Repeat labs in November 24, 2023 showed potassium 4.3 creatinine 1.3 . Secondary to acute COPD exasperation and is complicated by acute on chronic diastolic heart failure Possible pneumonia Nebs [id number] and as needed IV Solu-Medrol Has been on intravenous Rocephin and will add oral doxycycline for atypical coverage Procalcitonin negative Clinically much better and will continue current management If the condition gets worse will get pulmonary involved Will monitor Acute diastolic CHF Will place on IV Lasix 40 mg twice daily Echo-the LV is normal in size, there is mild concentric LVH, the left ventricular wall motion is normal with EF 55 to 60%, grade 1 diastolic dysfunction, LA size is normal, there is mild mitral regurgitation, Doppler f inding do not suggest pulmonary hypertension, and there is trivial circumferential pericardial effusion of known hemodynamic significance Telemetry-no arrhythmias Appreciate cardiology input and recommendation History of left lung neoplasm status post lobectomy Recently had CT chest Follows with pulmonary Hypertension In October when she was in the hospital she had hypertensive urgency She was discharged on on amlodipine, hydralazine, losartan, spironolactone, terazosin, Coreg Currently Lasix, losartan and spironolactone are on hold as labs done on November 14 showed potassium of 5.6 and creatinine of 2.5 Blood pressure remains on the upper side and will monitor Elevated troponin Denies chest pain Serial troponins are negative for any ACS and echo has been grade 1 diastolic dysfunction Severe abdominal aortic stenosis Follow-up with vascular surgery Hyperlipidemia On statin DVT prophylaxis Lovenox Disposition Telemetry Full code Admission and Anticipated Discharge Date Admission Date: December 03, 2023 Subjective 12/04/2023 The patient was seen and examined in telemetry unit She has been feeling little better since admission Shortness of breath is better Cough is improved and denies any chest pain and her palpitation No fever and or chills Review of Systems Review of Systems: All systems reviewed and are unremarkable except as noted below Physical Exam Physical Exam: Lying in bed with minimal shortness of breath Constitutional: + ill appearing and average body habitus Eyes: PERRL, conjunctivae normal, anicteric sclerae ENMT: external ear and nose normal, oropharynx normal Neck: trachea midline, no thyromegaly Respiratory: + respiratory distress (Mild to moderate respiratory distress at rest) Auscultation: + diminished lung sounds, + crackles (More crackles on the right base) and + wheezes Cardiovascular: Rate/Rhythm: regular rate and regular rhythm; not tachycardic Heart Sounds: normal S1 and normal S2; no murmur Extremities: no edema Gastrointestinal (Abdomen): Inspection/Auscultation: normal bowel sounds; abdomen not distended Percussion/Palpation: abdomen soft; abdomen nontender Musculoskeletal: No acute arthritis involving any of the joint Neurologic: normal touch/pain/proprioception and moves all extremities; no focal motor deficits Psychiatric: A+Ox3, euthymic affect Lymphatic: no cervical or axillary lymphadenopathy Results & Data Results & Data Vital Signs (Past 12 Hours) Vital Signs Temp Pulse Pulse Resp BP Pulse Ox O2 Del Method 12/04/23 14:05 86 20 94 Nasal Cannula 12/04/23 11:40 36.7 C 84 18 179/83 H 94 Room Air 12/04/23 11:13 76 18 97 Nasal Cannula 12/04/23 08:04 36.6 C 80 17 173/75 H 96 Nasal Cannula 12/04/23 07:24 76 18 96 Nasal Cannula 12/04/23 07:20 75 12/04/23 02:46 36.7 C 76 18 162/76 H 98 Nasal Cannula O2 Flow Rate 12/04/23 14:05 2 12/04/23 11:40 12/04/23 11:13 3 12/04/23 08:04 4 12/04/23 07:24 4 12/04/23 07:20 12/04/23 02:46 4 Laboratory Results Short CBC 12/03/23 12/04/23 Range/Units 18:15 06:40 WBC 11.99 H 4.42 L D (4.8-10.8) K/ul Hgb 10.3 L 9.9 L (12.0-16.0) g/dl Hct 30.5 L 29.4 L (37.0-47.0) % Plt Count 198 187 (130-400) K/uL BMP 12/03/23 12/04/23 18:15 06:40 Sodium 134 L 137 Potassium 3.8 4.1 Chloride 103 104 Carbon Dioxide 22 23 BUN 16 18 Creatinine 1.15 1.10 Glucose 112 H 122 H Calcium 8.4 L 8.0 L Liver Function 12/03/23 Range/Units 18:15 Total Bilirubin 1.5 H (0.2-1.0) mg/dl AST 20 (13-39) U/L ALT 17 (7-52) U/L Alkaline Phosphatase 88 (34-104) U/L Albumin 4.3 (3.4-5.0) gm/dl Medications Administered Current Inpatient Medications Acetaminophen (Acetaminophen 325 Mg Tab) 650 mg PO Q4H PRN PRN Reason: Pain or Fever Stop: 01/02/24 22:32 Albuterol (Albuterol Hfa 8 Gm Inhaler) 2 puffs INH Q4H PRN PRN Reason: shortness of breath ,coughing or wheezing Stop: 01/02/24 22:32 Albuterol (Albut/Ipratrop 3mg/0.5mg Neb 3 Ml Vial) 3 ml NEB QIDR [facility]; Protocol Stop: 01/03/24 06:59 Last Admin: 12/04/23 14:05 Dose: 3 ml Albuterol (Albut/Ipratrop 3mg/0.5mg Neb 3 Ml Vial) 3 ml NEB Q4R PRN; Protocol PRN Reason: Shortness Of Breath Or Wheezing Stop: 01/02/24 22:32 Amlodipine Besylate (Amlodipine Besylate 5 Mg Tab) 10 mg PO DAILY [facility] Stop: 01/03/24 08:59 Last Admin: 12/04/23 09:04 Dose: 10 mg Aripiprazole (Aripiprazole 5 Mg Tab) 5 mg PO DAILY [facility] Stop: 01/03/24 08:59 Last Admin: 12/04/23 09:05 Dose: 5 mg Aspirin (Aspirin 81 Mg Ectab) 81 mg PO DAILY [facility] Stop: 01/03/24 08:59 Last Admin: 12/04/23 09:04 Dose: 81 mg Atorvastatin Calcium (Atorvastatin 20 Mg Tab) 20 mg PO DAILY [facility] Stop: 01/03/24 08:59 Last Admin: 12/04/23 09:05 Dose: 20 mg Benzonatate (Benzonatate 100 Mg Capsule) 100 mg PO TID PRN PRN Reason: cough Stop: 01/02/24 22:32 Carvedilol (Carvedilol 25 Mg Tab) 25 mg PO BID [facility] Stop: 01/02/24 22:32 Last Admin: 12/04/23 09:03 Dose: 25 mg Cetirizine HCl (Cetirizine Hcl 10 Mg Tablet) 10 mg PO DAILY [facility] Stop: 01/03/24 08:59 Last Admin: 12/04/23 09:05 Dose: 10 mg Clonazepam (Clonazepam 0.5 Mg Tab) 0.5 mg PO BID PRN PRN Reason: Anxiety Stop: 01/02/24 22:32 Enoxaparin Sodium (Enoxaparin Inj 40 Mg/0.4 Ml Syr) 40 mg SQ Q24H [facility] Stop: 01/02/24 22:32 Last Admin: 12/03/23 23:29 Dose: 40 mg Fluticasone Propionate (Fluticasone Propionate Na Spr 16 Gm Btl) 1 sprays NA BID [facility] Stop: 01/02/24 22:32 Last Admin: 12/04/23 09:05 Dose: 1 sprays Furosemide (Furosemide 40 Mg/4 Ml Vial) 40 mg IV BID17 [facility] Stop: 01/02/24 22:32 Last Admin: 12/04/23 09:04 Dose: 40 mg Hydralazine HCl (Hydralazine Tab 50 Mg Tab) 50 mg PO TID [facility] Stop: 01/02/24 22:32 Last Admin: 12/04/23 13:51 Dose: 50 mg Ceftriaxone Sodium 1,000 mg/ (Dextrose) 50 mls @ 100 mls/hr IV Q24H [facility]; Protocol Stop: 12/11/23 19:59 Methylprednisolone 40 mg/ (Syringe) 0.64 mls @ 1.5 mls/min IV Q8H [facility] Stop: 01/03/24 05:59 Last Admin: 12/04/23 13:51 Dose: 1.5 mls/min Losartan Potassium (Losartan Potassium 50 Mg Tab) 50 mg PO DAILY [facility] Stop: 01/03/24 12:44 Last Admin: 12/04/23 13:51 Dose: 50 mg Nitroglycerin (Nitroglycerin Sl 0.4 Mg/Tab Tab) 0.4 mg SL Q5M PRN PRN Reason: Chest Pain Stop: 01/02/24 22:32 Paroxetine HCl (Paroxetine Hcl 20 Mg Tab) 40 mg PO DAILY [facility] Stop: 01/03/24 08:59 Last Admin: 12/04/23 09:04 Dose: 40 mg Polyethylene Glycol (Polyethylene (Miralax) 17 Gm Pack) 17 gm PO DAILY PRN PRN Reason: Constipation Stop: 01/02/24 22:32 Spironolactone (Spironolactone 25 Mg Tab) 50 mg PO QAM [facility] Stop: 01/03/24 08:59 Terazosin HCl (Terazosin Hcl 1 Mg Cap) 2 mg PO HS [facility] Stop: 01/02/24 22:32 Last Admin: 12/03/23 23:31 Dose: 2 mg Umeclidinium [place] (Umeclidinium [place] 62.5mcg/Blister 7 Puffs/Inhaler) 1 puffs INH DAILY [facility] Stop: 01/03/24 08:59 Last Admin: 12/04/23 09:06 Dose: 1 puffs
[2023-12-04] MEDS: cefTRIAXone SODIUM 1,000 MG in DEXTROSE 5 % MINI-B 50 ML IV SCH (21:26)
[2023-12-04] MEDS: clonazePAM 0.5 MG TAB PO PRN (21:31)
[2023-12-05] MEDS: ALBUT/IPRATROP 3MG/0.5MG NEB 3 ML VIAL NEB PRN (04:12)
--- NOTE | 2023-12-05 08:53 | XRay Report ---
XR chest 1V portable CLINICAL HISTORY: ff up pleural effusion, pneumonia TECHNIQUE: Single frontal radiograph of the chest was obtained. Comparison: Comparison is made to chest radiograph 12/03/2023 FINDINGS: No lines and tubes are seen. Cardiomegaly is noted. The aortic arch is calcified. Reticular interstit ial opacities are seen. Redemonstration of small bilateral pleural effusions with chronic elevation o f the left hemidiaphragm. IMPRESSION: Stable bilateral pleural effusions. No evidence of pneumonia. ACT 112: Negative or not required by law. Electronically signed by: Kaveh Gordon M.D. 12/05/2023 8:52 AM
[2023-12-05 09:32] LABS: BUN Creatinine Ratio 23.1 (10-20); Creatinine Clr Calc Pharmacy 44.5 ml/min; Est GFR (Non-African American) 56.9 ml/min; Potassium 3.6 mmol/L (3.5-5.1)
--- NOTE | 2023-12-05 11:27 | Cardiology Progress Note ---
Date of Service December 05, 2023 Assessment & Plan Admission and Anticipated Discharge Date Admission Date: December 03, 2023 Supervising Physician Co-Signing Physician Notes 58 yo woman presenting with worsening dyspnea Dx: Acute on chronic diastolic heart failure * Longstanding Smoker * Hx of Lung CA * Not on home O2 * Hx of HFpEF * Patient appear euvolemic * Stop IV LASIX * Start Lasix 40 mg po per day * HTN - longstanding * Continue Coreg 25 mg po BID * Continue Aldactone 50 mg po per day * STOP Losartan 50 mg po per day * Start Entresto 49/51 mg po BID * Continue ASA 81 mg po per day * Continue Norvasc 10 mg po per day * Continue Hydralazine 50 mg po TID * Wean O2 via NC to RA as tolerated * Mobilize patient * DVT ppx Lance Peralta Subjective Events overnight: * -2079 cc * Weight 49 kg - was 50.3 kg * No telemetry events Subjective: * Breathing improved * no complaints Review of Systems Review of Systems: All systems reviewed & are unremarkable except as noted in HPI & below Physical Exam Physical Exam: Thin woman - NAD No elevation in JVP S1S2 CTA B - distant breath + BS No C/C/E Warm and perfused Results & Data Vital Signs (Past 12 Hours) Vital Signs Temp Pulse Pulse Resp BP Pulse Ox O2 Del Method 12/05/23 11:04 73 12/05/23 10:31 79 20 97 Nasal Cannula 12/05/23 09:16 Nasal Cannula 12/05/23 07:37 36.8 C 71 17 168/74 H 92 Nasal Cannula 12/05/23 07:14 78 18 94 Nasal Cannula 12/05/23 04:12 77 17 98 Nasal Cannula 12/05/23 02:46 36.5 C 72 20 172/77 H 96 Nasal Cannula 12/04/23 23:30 37.2 C 81 18 171/82 H 95 Nasal Cannula O2 Flow Rate 12/05/23 11:04 12/05/23 10:31 1 12/05/23 09:16 1 12/05/23 07:37 1 12/05/23 07:14 1 12/05/23 04:12 2 12/05/23 02:46 2 12/04/23 23:30 2.0 Laboratory Results Cardiac Enzymes 12/04/23 Range/Units 10:59 Troponin I High Sens 10.0 (0-14) pg/ml Comprehensive Metabolic Panel 12/05/23 Range/Units 08:50 Sodium 136 (136-145) mmol/L Potassium 3.6 (3.5-5.1) mmol/L Chloride 102 (98-107) mmol/L Carbon Dioxide 26 (21-32) mmol/L BUN 25 H (6-23) mg/dl Creatinine 1.08 (0.6-1.2) mg/dl Glucose 161 H (70-99(Fasting)) mg/dl Calcium 8.0 L (8.6-10.3) mg/dl Intake and Output 12/04/23 12/05/23 12/05/23 22:59 06:59 14:59 Intake Total 400 / 1120 200 / 1120 100 / 100 Output Total 800 / 3000 1100 / 3000 300 / 300 Balance -400 / -1880 -900 / -1880 -200 / -200 Intake: IV 50 / 50 cefTRIAXone SODIUM 1,000 mg In 50 / 50 Dextrose 5 % Mini-B 50 ml @ 100 mls/hr IV Q24H [facility] Rx#: [id number] Oral 350 / 1070 200 / 1070 100 / 100 Output: Urine 800 / 3000 1100 / 3000 300 / 300 Other: # Unmeasured Voids 1 Weight 49 kg Weight Measurement Method Standing Scale Medications Administered Current Inpatient Medications Acetaminophen (Acetaminophen 325 Mg Tab) 650 mg PO Q4H PRN PRN Reason: Pain or Fever Stop: 01/02/24 22:32 Albuterol (Albuterol Hfa 8 Gm Inhaler) 2 puffs INH Q4H PRN PRN Reason: shortness of breath ,coughing or wheezing Stop: 01/02/24 22:32 Albuterol (Albut/Ipratrop 3mg/0.5mg Neb 3 Ml Vial) 3 ml NEB QIDR [facility]; Protocol Stop: 01/03/24 06:59 Last Admin: 12/05/23 10:30 Dose: 3 ml Albuterol (Albut/Ipratrop 3mg/0.5mg Neb 3 Ml Vial) 3 ml NEB Q4R PRN; Protocol PRN Reason: Shortness Of Breath Or Wheezing Stop: 01/02/24 22:32 Last Admin: 12/05/23 04:12 Dose: 3 ml Amlodipine Besylate (Amlodipine Besylate 5 Mg Tab) 10 mg PO DAILY [facility] Stop: 01/03/24 08:59 Last Admin: 12/05/23 08:20 Dose: 10 mg Aripiprazole (Aripiprazole 5 Mg Tab) 5 mg PO DAILY [facility] Stop: 01/03/24 08:59 Last Admin: 12/05/23 08:19 Dose: 5 mg Aspirin (Aspirin 81 Mg Ectab) 81 mg PO DAILY [facility] Stop: 01/03/24 08:59 Last Admin: 12/05/23 08:19 Dose: 81 mg Atorvastatin Calcium (Atorvastatin 20 Mg Tab) 20 mg PO DAILY [facility] Stop: 01/03/24 08:59 Last Admin: 12/05/23 08:20 Dose: 20 mg Benzonatate (Benzonatate 100 Mg Capsule) 100 mg PO TID PRN PRN Reason: cough Stop: 01/02/24 22:32 Carvedilol (Carvedilol 25 Mg Tab) 25 mg PO BID [facility] Stop: 01/02/24 22:32 Last Admin: 12/05/23 08:18 Dose: 25 mg Cetirizine HCl (Cetirizine Hcl 10 Mg Tablet) 10 mg PO DAILY [facility] Stop: 01/03/24 08:59 Last Admin: 12/05/23 08:19 Dose: 10 mg Clonazepam (Clonazepam 0.5 Mg Tab) 0.5 mg PO BID PRN PRN Reason: Anxiety Stop: 01/02/24 22:32 Last Admin: 12/04/23 21:31 Dose: 0.5 mg Enoxaparin Sodium (Enoxaparin Inj 40 Mg/0.4 Ml Syr) 40 mg SQ Q24H [facility] Stop: 01/02/24 22:32 Last Admin: 12/04/23 21:27 Dose: 40 mg Fluticasone Propionate (Fluticasone Propionate Na Spr 16 Gm Btl) 1 sprays NA BID [facility] Stop: 01/02/24 22:32 Last Admin: 12/05/23 08:23 Dose: 1 sprays Furosemide (Furosemide 40 Mg/4 Ml Vial) 40 mg IV BID17 [facility] Stop: 01/02/24 22:32 Last Admin: 12/04/23 17:22 Dose: 40 mg Hydralazine HCl (Hydralazine Tab 50 Mg Tab) 50 mg PO TID [facility] Stop: 01/02/24 22:32 Last Admin: 12/05/23 08:19 Dose: 50 mg Ceftriaxone Sodium 1,000 mg/ (Dextrose) 50 mls @ 100 mls/hr IV Q24H [facility]; Protocol Stop: 12/11/23 19:59 Last Infusion: 12/04/23 22:08 Dose: Infused Methylprednisolone 40 mg/ (Syringe) 0.64 mls @ 1.5 mls/min IV Q8H [facility] Stop: 01/03/24 05:59 Last Admin: 12/05/23 05:10 Dose: 1.5 mls/min Losartan Potassium (Losartan Potassium 50 Mg Tab) 50 mg PO DAILY [facility] Stop: 01/03/24 12:44 Last Admin: 12/05/23 08:19 Dose: 50 mg Nitroglycerin (Nitroglycerin Sl 0.4 Mg/Tab Tab) 0.4 mg SL Q5M PRN PRN Reason: Chest Pain Stop: 01/02/24 22:32 Paroxetine HCl (Paroxetine Hcl 20 Mg Tab) 40 mg PO DAILY [facility] Stop: 01/03/24 08:59 Last Admin: 12/05/23 08:20 Dose: 40 mg Polyethylene Glycol (Polyethylene (Miralax) 17 Gm Pack) 17 gm PO DAILY PRN PRN Reason: Constipation Stop: 01/02/24 22:32 Spironolactone (Spironolactone 25 Mg Tab) 50 mg PO QAM [facility] Stop: 01/03/24 08:59 Terazosin HCl (Terazosin Hcl 1 Mg Cap) 2 mg PO HS [facility] Stop: 01/02/24 22:32 Last Admin: 12/04/23 21:26 Dose: 2 mg Umeclidinium [place] (Umeclidinium [place] 62.5mcg/Blister 7 Puffs/Inhaler) 1 puffs INH DAILY [facility] Stop: 01/03/24 08:59 Last Admin: 12/05/23 08:23 Dose: 1 puffs
[2023-12-05] MEDS: ACETAMINOPHEN 325 MG TAB PO PRN (15:57)
--- NOTE | 2023-12-05 18:58 | Hospitalist Progress Note ---
Date of Service December 05, 2023 Assessment & Plan (1) Acute exacerbation of chronic obstructive pulmonary disease: Plan: per previous hospitalist notes with addendum: 58-year-old female with past medical history significant for hyperlipidemia, moderate COPD, history of left lung neoplasm s/p lobectomy, history of tobacco abuse states currently not smoking since last 3 months, hypertension, anxiety, depression, bipolar disorder, hyperlipidemia, abdominal aortic stenosis, diastolic CHF, hypertension, GERD, dysplasia of cervix low-grade, osteoporosis, heterogeneous factor V Leyden mutation, history of condyloma acuminatum, presents with shortness of breath going on for last 2 days. Also has lower rib pain which is getting better. Has some cough. Denies any fevers. Walking short distance making her short of breath. Has orthopnea. No headache. No s ore throat or earache. No runny nose. Appetite is down. No nausea or abdominal pain. Normal bowel and bladder movements. Denies any rash. Outpatient labs on November 14 showed creatinine of 2.5 and potassium of 5.6 and since then Lasix, spironolactone and losartan are on hold. Repeat labs in November 24, 2023 showed potassium 4.3 creatinine 1.3 . Acute Hypoxic Respiratory Failure Secondary to acute COPD exasperation and is complicated by acute on chronic diastolic heart failure Possible pneumonia Nebs [id number] and as needed IV Solu-Medrol Has been on intravenous Rocephin and will add oral doxycycline for atypical coverage Procalcitonin negative Clinically much better and will continue current management If the condition gets worse will get pulmonary involved Will monitor 3/6 CXR: pleural effusion resolving down to 1 L NC Lasix IV transitioned to PO Losartan changed to Entresto Cardiology consulted continue Ceftriaxone IV d/c Solumedrol Acute diastolic CHF Will place on IV Lasix 40 mg twice daily Echo-the LV is normal in size, there is mild concentric LVH, the left ventricular wall motion is normal with EF 55 to 60%, grade 1 diastolic dysfunction, LA size is normal, there is mild mitral regurgitation, Doppler finding do not suggest pulmonary hypertension, and there is trivial circumferential pericardial effusion of known hemodynamic significance Telemetry-no arrhythmias Appreciate cardiology input and recommendation management per above Hypertension In October when she was in the hospital she had hypertensive urgency She was discharged on on amlodipine, hydralazine, losartan, spironolactone, terazosin, Coreg Currently Lasix, losartan and spironolactone are on hold as labs done on November 14 showed potassium of 5.6 and creatinine of 2.5 Blood pressure remains on the upper side and will monitor 3/6 improving per Cardio: * Continue Coreg 25 mg po BID * Continue Aldactone 50 mg po per day * STOP Losartan 50 mg po per day * Start Entresto 49/51 mg po BID * Continue Norvasc 10 mg po per day * Continue Hydralazine 50 mg po TID Elevated troponin Denies chest pain Serial troponins are negative for any ACS and echo has been grade 1 diastolic dysfunction Severe abdominal aortic stenosis Follow-up with vascular surgery History of left lung neoplasm status post lobectomy Recently had CT chest Follows with pulmonar Hyperlipidemia On statin DVT prophylaxis Lovenox Disposition Telemetry Full code Admission and Anticipated Discharge Date Admission Date: December 03, 2023 Subjective ff up for acute respiratory failure, CHF, pneumonia, etc seen resting in bed, on 1L NC states she feels improved compared to yesterday less cough, no fever/chills no chest pain, palpitations, dizziness reports some abdominal discomfort, pressure- chronic no other new symptoms Review of Systems Review of Systems: all noted and negative except for above Physical Exam Physical Exam: General- oriented x 3, not in distress, speaks in sentences with no effort or accessory muscle use Eyes- anicteric Neck- no JVD Lungs- mild rales at the bases Heart- normal rate, regular rhythm; no murmurs Abdomen- normal bowel sounds, nondistended, soft, nontender Extremities- no pretibial edema, no calf tenderness Neuro- alert, oriented x 3; no gross focal neurologic deficits Skin- warm & dry Results & Data Results & Data Vital Signs (Past 12 Hours) Vital Signs Temp Pulse Pulse Resp BP Pulse Ox O2 Del Method 12/05/23 18:02 74 12/05/23 15:50 36.5 C 70 17 169/78 H 97 Nasal Cannula 12/05/23 15:14 72 16 95 Nasal Cannula 12/05/23 11:04 73 12/05/23 11:00 36.8 C 76 18 163/77 H 96 Nasal Cannula 12/05/23 10:31 79 20 97 Nasal Cannula 12/05/23 09:16 Nasal Cannula 12/05/23 07:37 36.8 C 71 17 168/74 H 92 Nasal Cannula 12/05/23 07:14 78 18 94 Nasal Cannula O2 Flow Rate 12/05/23 18:02 12/05/23 15:50 1 12/05/23 15:14 1 12/05/23 11:04 12/05/23 11:00 1 12/05/23 10:31 1 12/05/23 09:16 1 12/05/23 07:37 1 12/05/23 07:14 1 all noted and reviewed including below
[2023-12-05] MEDS: VALSARTAN/SACUBITRIL 51/49 MG TAB PO SCH (20:05)
[2023-12-06] MEDS: TERAZOSIN HCL 1 MG CAP PO ONE (00:11)
[2023-12-06 06:59] LABS: BUN Creatinine Ratio 28.9 (10-20); Calcium 7.8 mg/dl (8.6-10.3); Creatinine Clr Calc Pharmacy 48.5 ml/min; Est GFR (African American) 75.1 ml/min; Est GFR (Non-African American) 64.8 ml/min; Magnesium 2.2 mg/dl (1.7-2.4); Potassium 3.9 mmol/L (3.5-5.1)
[2023-12-06] MEDS: FUROSEMIDE 40 MG TAB PO SCH (09:07)
--- NOTE | 2023-12-06 09:44 | Cardiology Progress Note ---
Date of Service December 06, 2023 Assessment & Plan Admission and Anticipated Discharge Date Admission Date: December 03, 2023 Supervising Physician Co-Signing Physician Notes 58 yo woman presenting with worsening dyspnea Dx: Acute on chronic diastolic heart failure * Longstanding Smoker * Hx of Lung CA * Not on home O2 * Hx of HFpEF * Patient appear euvolemic on oral Lasix * IV LASIX (OFF) * Continue Lasix 40 mg po per day * HTN - longstanding * Continue Coreg 25 mg po BID * Continue Aldactone 50 mg po per day * Losartan 50 mg po per day (OFF) * Increase Entresto to 97/103 mg po BID * Continue ASA 81 mg po per day * Continue Norvasc 10 mg po per day * May need to increase Hydralazine to 75 mg po TID * No known MILLICENT; may need to be considered for Renal Denervation when approved * No known YOLIS * Wean O2 via NC to RA as tolerated * Mobilize patient * DVT ppx * Will arrange for follow up with [facility] * Please call back with any additional question Lance Peralta Subjective Events overnight: * None reported * No telemetry events Subjective: * No complaints Review of Systems Review of Systems: All systems reviewed & are unremarkable except as noted in HPI & below Physical Exam Physical Exam: Thin woman - NAD No elevation in JVP S1S2 CTA B - distant breath + BS No C/C/E Warm and perfused Results & Data Vital Signs (Past 12 Hours) Vital Signs Temp Pulse Pulse Resp BP Pulse Ox O2 Del Method 12/06/23 08:05 36.7 C 61 18 165/72 H 92 Room Air 12/06/23 06:55 56 L 16 96 Room Air 12/06/23 03:00 36.4 C L 62 19 177/75 H 96 Nasal Cannula 12/05/23 23:13 36.6 C 76 18 179/72 H 91 Nasal Cannula 12/05/23 22:00 81 Laboratory Results Comprehensive Metabolic Panel 12/06/23 Range/Units 06:12 Sodium 136 (136-145) mmol/L Potassium 3.9 (3.5-5.1) mmol/L Chloride 104 (98-107) mmol/L Carbon Dioxide 27 (21-32) mmol/L BUN 28 H (6-23) mg/dl Creatinine 0.97 (0.6-1.2) mg/dl Glucose 138 H (70-99(Fasting)) mg/dl Calcium 7.8 L (8.6-10.3) mg/dl Intake and Output 12/05/23 12/06/23 12/06/23 22:59 06:59 14:59 Intake Total 290 / 930 Output Total 400 / 1700 600 / 1700 Balance -110 / -770 -600 / -770 Intake: IV 50 / 50 cefTRIAXone SODIUM 1,000 mg In 50 / 50 Dextrose 5 % Mini-B 50 ml @ 100 mls/hr IV Q24H [facility] Rx#: [id number] Oral 240 / 880 Output: Urine 400 / 1700 600 / 1700 Other: Weight 48 kg Weight Measurement Method Built in [facility] Medications Administered Current Inpatient Medications Acetaminophen (Acetaminophen 325 Mg Tab) 650 mg PO Q4H PRN PRN Reason: Pain or Fever Stop: 01/02/24 22:32 Last Admin: 12/05/23 15:57 Dose: 650 mg Albuterol (Albuterol Hfa 8 Gm Inhaler) 2 puffs INH Q4H PRN PRN Reason: shortness of breath ,coughing or wheezing Stop: 01/02/24 22:32 Albuterol (Albut/Ipratrop 3mg/0.5mg Neb 3 Ml Vial) 3 ml NEB QIDR [facility]ARDO; Protocol Stop: 01/03/24 06:59 Last Admin: 12/06/23 06:54 Dose: 3 ml Albuterol (Albut/Ipratrop 3mg/0.5mg Neb 3 Ml Vial) 3 ml NEB Q4R PRN; Protocol PRN Reason: Shortness Of Breath Or Wheezing Stop: 01/02/24 22:32 Last Admin: 12/05/23 04:12 Dose: 3 ml Amlodipine Besylate (Amlodipine Besylate 5 Mg Tab) 10 mg PO DAILY [facility] Stop: 01/03/24 08:59 Last Admin: 12/06/23 09:05 Dose: 10 mg Aripiprazole (Aripiprazole 5 Mg Tab) 5 mg PO DAILY [facility] Stop: 01/03/24 08:59 Last Admin: 12/06/23 09:05 Dose: 5 mg Aspirin (Aspirin 81 Mg Ectab) 81 mg PO DAILY [facility] Stop: 01/03/24 08:59 Last Admin: 12/06/23 09:06 Dose: 81 mg Atorvastatin Calcium (Atorvastatin 20 Mg Tab) 20 mg PO DAILY [facility] Stop: 01/03/24 08:59 Last Admin: 12/06/23 09:05 Dose: 20 mg Benzonatate (Benzonatate 100 Mg Capsule) 100 mg PO TID PRN PRN Reason: cough Stop: 01/02/24 22:32 Carvedilol (Carvedilol 25 Mg Tab) 25 mg PO BID [facility] Stop: 01/02/24 22:32 Last Admin: 12/05/23 20:03 Dose: 25 mg Cetirizine HCl (Cetirizine Hcl 10 Mg Tablet) 10 mg PO DAILY [facility] Stop: 01/03/24 08:59 Last Admin: 12/06/23 09:04 Dose: 10 mg Clonazepam (Clonazepam 0.5 Mg Tab) 0.5 mg PO BID PRN PRN Reason: Anxiety Stop: 01/02/24 22:32 Last Admin: 12/05/23 20:05 Dose: 0.5 mg Enoxaparin Sodium (Enoxaparin Inj 40 Mg/0.4 Ml Syr) 40 mg SQ Q24H [facility] Stop: 01/02/24 22:32 Last Admin: 12/05/23 21:37 Dose: 40 mg Fluticasone Propionate (Fluticasone Propionate Na Spr 16 Gm Btl) 1 sprays NA BID [facility] Stop: 01/02/24 22:32 Last Admin: 12/06/23 09:07 Dose: 1 sprays Furosemide (Furosemide 40 Mg Tab) 40 mg PO QAM [facility] Stop: 01/05/24 08:59 Last Admin: 12/06/23 09:07 Dose: 40 mg Hydralazine HCl (Hydralazine Tab 50 Mg Tab) 50 mg PO TID [facility] Stop: 01/02/24 22:32 Last Admin: 12/06/23 09:05 Dose: 50 mg Ceftriaxone Sodium 1,000 mg/ (Dextrose) 50 mls @ 100 mls/hr IV Q24H [facility]; Protocol Stop: 12/11/23 19:59 Last Infusion: 12/05/23 20:28 Dose: Infused Nitroglycerin (Nitroglycerin Sl 0.4 Mg/Tab Tab) 0.4 mg SL Q5M PRN PRN Reason: Chest Pain Stop: 01/02/24 22:32 Paroxetine HCl (Paroxetine Hcl 20 Mg Tab) 40 mg PO DAILY [facility] Stop: 01/03/24 08:59 Last Admin: 12/06/23 09:06 Dose: 40 mg Polyethylene Glycol (Polyethylene (Miralax) 17 Gm Pack) 17 gm PO DAILY PRN PRN Reason: Constipation Stop: 01/02/24 22:32 Sacubitril/Valsartan (Valsartan/Sacubitril 51/49 Mg Tab) 1 tab PO BID [facility] Stop: 01/04/24 20:59 Last Admin: 12/06/23 09:06 Dose: 1 tab Spironolactone (Spironolactone 25 Mg Tab) 50 mg PO QAM [facility] Stop: 01/03/24 08:59 Terazosin HCl (Terazosin Hcl 1 Mg Cap) 4 mg PO HS [facility] Stop: 01/05/24 20:59 Umeclidinium Swiss (Umeclidinium Swiss 62.5mcg/Blister 7 Puffs/Inhaler) 1 puffs INH DAILY [facility] Stop: 01/03/24 08:59 Last Admin: 12/06/23 09:04 Dose: 1 puffs
[2023-12-06] MEDS: OPTIRAY 320 125ml IV ONE (10:41)
--- NOTE | 2023-12-06 14:09 | CT Scan Report ---
CT angio abd pelvis wo/w con CLINICAL HISTORY: abdominal aortic stenosis TECHNIQUE: Multidetector row helical CT of the abdomen and pelvis was performed, following intravenou s administration of iodinated contrast. No oral contrast was administered. Automated dose lowering te chniques and/or adjustment according to patient size were utilized for this exam. Coronal and sagitta l reformations were obtained. MIP and 3D volume rendered reconstructions were obtained. CT DOSE: 759.87 mGy.cm Comparison: Comparison is made to PET/CT 07/14/[address] abdomen pelvis 11/27/2007 FINDINGS: Lower chest: Small bilateral pleural effusions. Emphysema is seen. There is biatrial enlargement and a small pericardial effusion. Liver: Unremarkable. No focal lesions are seen. Gallbladder and biliary tree: No calcified gallstones. Normal caliber wall. No intra- or extrahepatic biliary ductal dilation. Pancreas: Unremarkable, no focal lesions. Spleen: Unremarkable. Adrenals: Unremarkable. Kidneys and ureters: Unremarkable. Bladder: Unremarkable. Reproductive organs: Unremarkable. Bowel: Unremarkable. Lymph nodes Retroperitoneal: Unremarkable. Pelvic: Unremarkable. Mesenteric: Unremarkable. Peritoneum: Small amount of pelvic fluid is seen. Abdominal wall: Unremarkable. Bones: Unremarkable. CT angiogram: The abdominal aortic contours appear intact without evidence of aneurysmal dilatation a nd/or dissection. Severe atherosclerotic disease is seen with near complete occlusion of the infrare nal aorta. The origin of the superior mesenteric artery is significantly narrowed by atherosclerosis. IMPRESSION: 1. Severe atherosclerotic disease is seen in the aorta both above and below the origin of the renal arteries. 2. There is mild pelvic free fluid which is nonspecific. No bowel wall thickening is seen to suggest ischemic bowel. ACT 112: Negative or not required by law. Electronically signed by: Kaveh Gordon M.D. 12/06/2023 2:08 PM
--- NOTE | 2023-12-06 18:28 | Hospitalist Progress Note ---
Date of Service December 06, 2023 Assessment & Plan (1) Acute exacerbation of chronic obstructive pulmonary disease: Plan: per previous hospitalist notes with addendum: 58-year-old female with past medical history significant for hyperlipidemia, moderate COPD, history of left lung neoplasm s/p lobectomy, history of tobacco abuse states currently not smoking since last 3 months, hypertension, anxiety, depression, bipolar disorder, hyperlipidemia, abdominal aortic stenosis, diastolic CHF, hypertension, GERD, dysplasia of cervix low-grade, osteoporosis, heterogeneous factor V Leyden mutation, history of condyloma acuminatum, presents with shortness of breath going on for last 2 days. Also has lower rib pain which is getting better. Has some cough. Denies any fevers. Walking short distance making her short of breath. Has orthopnea. No headache. No s ore throat or earache. No runny nose. Appetite is down. No nausea or abdominal pain. Normal bowel and bladder movements. Denies any rash. Outpatient labs on November 14 showed creatinine of 2.5 and potassium of 5.6 and since then Lasix, spironolactone and losartan are on hold. Repeat labs in November 24, 2023 showed potassium 4.3 creatinine 1.3 . Acute Hypoxic Respiratory Failure Secondary to acute COPD exasperation and is complicated by acute on chronic diastolic heart failure Possible pneumonia Nebs [id number] and as needed IV Solu-Medrol Has been on intravenous Rocephin and will add oral doxycycline for atypical coverage Procalcitonin negative Clinically much better and will continue current management If the condition gets worse will get pulmonary involved Will monitor 12/04 CXR: pleural effusion resolving down to 1 L NC Lasix IV transitioned to PO Losartan changed to Entresto Cardiology consulted continue Ceftriaxone IV d/c Solumedrol 3/ continues to improve now on room air continue Ceftriaxone Acute diastolic CHF Will place on IV Lasix 40 mg twice daily Echo-the LV is normal in size, there is mild concentric LVH, the left ventricular wall motion is normal with EF 55 to 60%, grade 1 diastolic dysfunction, LA size is normal, there is mild mitral regurgitation, Doppler finding do not suggest pulmonary hypertension, and there is trivial circumferential pericardial effusion of known hemodynamic significance Telemetry-no arrhythmias Appreciate cardiology input and recommendation management per above 12/05 diuresed well CXR pleural effusion resolving transtioned to PO Lasix Hypertension In Autumn thousand 24 when she was in the hospital she had hypertensive urgency She was discharged on on amlodipine, hydralazine, losartan, spironolactone, terazosin, Coreg Currently Lasix, losartan and spironolactone are on hold as labs done on November 14 showed potassium of 5.6 and creatinine of 2.5 Blood pressure remains on the upper side and will monitor 3/6 improving per Cardio: * Continue Coreg 25 mg po BID * Continue Aldactone 50 mg po per day * STOP Losartan 50 mg po per day * Start Entresto 49/51 mg po BID * Continue Norvasc 10 mg po per day * Continue Hydralazine 50 mg po TID 12/05 started on Entresto Elevated troponin Denies chest pain Serial troponins are negative for any ACS and echo has been grade 1 diastolic dysfunction Severe abdominal aortic stenosis CT abdomen/pelvis: 1. Severe atherosclerotic disease is seen in the aorta both above and below the origin of the renal arteries. 2. There is mild pelvic free fluid which is nonspecific. No bowel wall thickening is seen to suggest ischemic bowel. 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 Hyperlipidemia On statin DVT prophylaxis Lovenox Disposition Telemetry Full code Admission and Anticipated Discharge Date Admission Date: December 03, 2023 Subjective ff up for CHF exacerbation, etc seen resting in bed, comfortable sitting up states she continues to feel improved still having some intermittent abdominal discomfort no chest pain, dyspnea, palpitations, dizziness no other new symptoms Review of Systems Review of Systems: all noted and negative except for above Physical Exam Physical Exam: General- oriented x 3, not in distress, speaks in sentences with no effort or accessory muscle use Eyes- anicteric Neck- no JVD Lungs- very mild rales at the bases no wheezing Heart- normal rate, regular rhythm; no murmurs Abdomen- normal bowel sounds, nondistended, soft, nontender Extremities- no pretibial edema, no calf tenderness Neuro- alert, oriented x 3; no gross focal neurologic deficits Skin- warm & dry Results & Data Results & Data Vital Signs (Past 12 Hours) Vital Signs Temp Pulse Pulse Resp BP Pulse Ox O2 Del Method 12/06/23 18:13 61 98 Room Air 12/06/23 15:16 36.5 C 62 20 162/75 H 97 Room Air 12/06/23 15:13 62 14 98 Room Air 12/06/23 14:00 59 L 12/06/23 11:18 36.4 C L 63 18 170/79 H 95 Room Air 12/06/23 11:03 62 18 92 Room Air 12/06/23 10:26 Room Air 12/06/23 08:05 36.7 C 61 18 165/72 H 92 Room Air 12/06/23 06:55 56 L 16 96 Room Air FiO2 12/06/23 18:13 12/06/23 15:16 12/06/23 15:13 21 12/06/23 14:00 12/06/23 11:18 12/06/23 11:03 12/06/23 10:26 12/06/23 08:05 12/06/23 06:55 all noted and reviewed including below
[2023-12-06] MEDS: TERAZOSIN HCL 1 MG CAP PO SCH (20:38)
[2023-12-06] MEDS: VALSARTAN/SACUBITRIL 103/97MG TAB PO SCH (20:38)
[2023-12-07 06:51] LABS: BUN Creatinine Ratio 30.5 (10-20); Calcium 7.7 mg/dl (8.6-10.3); Creatinine Clr Calc Pharmacy 49.8 ml/min; Est GFR (African American) 77.1 ml/min; Est GFR (Non-African American) 66.5 ml/min
--- NOTE | 2023-12-07 11:10 | Consultation ---
Date of Consultation December 07, 2023 Assessment & Plan (1) Stenosis of abdominal aorta: Pt with severe stenosis of infrarenal abd aorta, and BLE claudication sx. No rest pain or tissue loss to indicate urgent intervention. Claudication is limiting her activity. Possibly some element of neurogenic claudication as well as arterial claudication. Discussed with pt that correction of her AA stenosis would likely involve open surgery and she will be better served by having this done at a tertiary center. Offered to schedule pt at [facility] for eval if she chooses. She will call if she wishes to schedule at [facility]. Please call if needed. History of Present Illness Reason for Consultation: stenosis of aorta Attending Physician: Vinh Pham MD History of Present Illness 58 yo f with hx of HTN, CHF, CKD, COPD exacerbation, dyslipidemia, Factor V leiden mutation heterozygous, spinal stenosis, admitted with acute on chronic CHF and COPD exacerbation, seen in consultation today for stenosis of distal aorta noted on imaging. Per chart, this was noted on a recent renal art US and pt was set up to see [facility] vascular surgery 2 days ago, but was admitted here. Pt states her appt was rescheduled for 01/01. Pt states she had some epigastric pain and chest pain and SOB, so came to [facility]. States this is improved. Pt states she has difficulty ambulating d/t BL thigh pain that travels to her calves after ambulating about 20-30 yds. Also associated numbness in BLE. States she stops and rests for about 5 minutes and can then ambulate a similar distance. This has been present for the past 1 year. She has attributed this to her spinal stenosis. Denies any change or improvement in sx when leaning on a grocery cart in the store. Shopping is very cumbersome for her d/t frequent stops. Denies rest pain or ulcerations or discoloration of toes. Denies PETERSEN, fever, chest pain presently, abd pain, N/V, other complaints. Allergies Allergy/AdvReac Type Severity Reaction Status Date / Time Bactrim Allergy Intermediate HIVES Verified 07/26/15 07:15 Sulfa (Sulfonamide Allergy Intermediate BACTRIM- Verified 11/08/23 16:52 Antibiotics) HIVES sulfamethoxazole Allergy Intermediate HIVES Verified 11/08/23 16:52 trimethoprim Allergy Intermediate HIVES Verified 11/08/23 16:52 erythromycin base Allergy Unknown Verified 11/08/23 16:52 metaxalone Allergy Unknown Verified 11/08/23 16:52 morphine Allergy Unknown . Verified 11/08/23 16:52 neomycin Allergy Unknown Verified 11/08/23 16:52 Quinolones Allergy Unknown Verified 11/08/23 16:52 tetracycline Allergy Unknown Verified 11/08/23 16:52 amoxicillin [From Augmentin] Allergy Verified 11/08/23 16:52 clavulanic acid Allergy Verified 11/08/23 16:52 [From Augmentin] umeclidinium Allergy Verified 11/08/23 16:52 [From Anoro Ellipta] vilanterol Allergy Verified 11/08/23 16:52 [From Anoro Ellipta] moxifloxacin AdvReac Unknown hives Verified 11/08/23 16:52 Home Medications Medication Instructions Recorded Confirmed Type aripiprazole 5 mg tablet (Abilify) 5 mg PO DAILY 12/03/19 12/03/23 History aspirin 81 mg tablet 81 mg PO DAILY 02/04/20 12/03/23 History cetirizine 10 mg tablet 10 mg PO DAILY 02/04/20 12/03/23 History clonazepam 0.5 mg tablet 0.5 mg PO BID PRN Anxiety 02/04/20 12/03/23 History amlodipine 10 mg tablet 10 mg PO DAILY 08/01/21 12/03/23 History losartan 50 mg tablet 50 mg PO BID 08/01/21 12/03/23 History albuterol sulfate 90 mcg/actuation 2 puff inhalation Q4H PRN 02/20/22 12/03/23 Rx aerosol inhaler (Ventolin HFA) shortness of breath ,coughing or wheezing #18 grams atorvastatin 20 mg tablet 20 mg PO DAILY 06/11/23 12/03/23 History carvedilol 25 mg tablet 25 mg PO BID 06/11/23 12/03/23 History paroxetine HCl 40 mg tablet 40 mg PO DAILY 06/11/23 12/03/23 History albuterol sulfate 2.5 mg/3 mL 2.5 mg (3 mL) inhalation Q4H PRN 06/15/23 12/03/23 Rx (0.083 %) solution for nebulization shortness of breath or wheezing #180 mL benzonatate 100 mg capsule 100 mg PO TID PRN cough #20 caps 06/15/23 12/03/23 Rx furosemide 20 mg tablet 20 mg PO BID #60 tabs 06/15/23 12/03/23 Rx hydralazine 50 mg tablet 50 mg PO TID #90 tabs 06/15/23 12/03/23 Rx terazosin 1 mg capsule 2 mg (2 x 1 mg) PO HS #30 caps 06/15/23 12/03/23 Rx umeclidinium 62.5 mcg/actuation 1 inh inhalation DAILY #90 puffs 07/10/23 12/03/23 Rx blister powder for inhalation (Incruse Ellipta) fluticasone propionate 50 1 spray intranasal BID #18.2 mL 10/19/23 12/03/23 Rx mcg/actuation nasal spray,suspension (Flonase Allergy Relief) acetaminophen 650 mg 650 mg PO Q8H PRN Pain 10/21/23 12/03/23 History tablet,extended release alendronate 70 mg tablet 70 mg PO WK 10/21/23 12/03/23 History ergocalciferol (vitamin D2) 1,250 1,250 mcg PO WK 10/21/23 12/03/23 History mcg (50,000 unit) capsule (Vitamin D2) ipratropium 0.5 mg-albuterol 3 mg 3 ml NEB QIDR 7 days #90 mL 10/27/23 12/03/23 Rx (2.5 mg base)/3 mL nebulization soln spironolactone 25 mg tablet 50 mg (2 x 25 mg) PO QAM 30 days 10/27/23 12/03/23 Rx #60 tabs Patient History Medical History Pleural effusion Atelectasis Acute CHF Anaphylaxis History of temporomandibular joint disorder GERD (gastroesophageal reflux disease) Bipolar disorder Essential hypertension Breast fibroadenoma Dyslipidemia 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 Malignant neoplasm of upper lobe, left bronchus or lung Pulmonary emphysema Pulmonary nodule Arthritis Allergic rhinitis Lumbar stenosis (09/25/14) Surgical History History of D&C History of lumbar surgery H/O breast surgery H/O splenectomy Family History Father Hypertension Mother Lung cancer Other Breast cancer COPD (chronic obstructive pulmonary disease) Diabetes Social History Smoking Status: Former smoker Tobacco Type: Cigarettes Cigarettes Per Day: 3; Second Hand Exposure: No; Tobacco Cessation Education Requested by Patient: No Hx Alcohol Use: No Hx Substance Use: No Preferred Language: Kazakh Communication Ability: Effective Real Time Analyst Required: No Beliefs That Will Affect Care: None marital status: Current Living Situation: Significant Other current occupational status: disabled Other Information That Helps Us Care for You: No Feels Safe at Home: Yes Safety Concerns: Feels Safe At This Time Assistive Devices: Nebulizer Review of Systems Review of Systems: All systems reviewed & are unremarkable except as noted in HPI & below Physical Exam Constitutional: WD/WN, vitals as above + thin, cooperative and comfortable; not in distress ENMT: Ears: no hearing impairment Neck: trachea midline Respiratory: normal respiratory effort Auscultation: + diminished lung sounds, + crackles and + wheezes Cardiovascular: Rate/Rhythm: regular rate and regular rhythm Vessels: posterior tibial pulses present (dopplerable) and dorsalis pedis pulses present (dopplerable); + abnormal peripheral pulses and + femoral pulses abnormal Extremities: normal capillary refill; no edema Gastrointestinal (Abdomen): Inspection/Auscultation: abdomen normal to inspection and normal bowel sounds Percussion/Palpation: abdomen soft; abdomen nontender Musculoskeletal: no cyanosis or clubbing, extremities motor strength 5/5 Skin: no rashes, warm and dry Neurologic: moves all extremities and awake; no focal motor deficits and not confused Psychiatric: Orientation: alert and oriented x 3 Affect: + flat affect Results & Data Vital Signs (Past 12 Hours) Vital Signs Temp Pulse Resp BP Pulse Ox O2 Del Method 12/07/23 07:32 Room Air 12/07/23 07:31 36.4 C L 56 L 20 169/77 H 96 Room Air 12/07/23 07:05 68 18 99 Room Air 12/07/23 03:32 36.9 C 60 18 159/77 H 95 Room Air 12/06/23 23:22 36.5 C 62 18 131/64 97 Room Air
--- NOTE | 2023-12-07 19:44 | Discharge Summary ---
Discharge Summary Date of Service December 07, 2023 Notes For Next Care Provider Medication Changes From Visit Entresto-for blood pressure control Lasix-diuretic for CHF Admission HPI Per Admitting Provider 58-year-old female with past medical history significant for hyperlipidemia, moderate COPD, history of left lung neoplasm s/p lobectomy, history of tobacco abuse states currently not smoking since last 3 months, hypertension, anxiety, depression, bipolar disorder, hyperlipidemia, abdominal aortic stenosis, diastolic CHF, hypertension, GERD, dysplasia of cervix low-grade, osteoporosis, heterogeneous factor V Leyden mutation, history of condyloma acuminatum, presents with shortness of breath going on for last 2 days. Also has lower rib pain which is getting better. Has some cough. Denies any fevers. Walking short distance making her short of breath. Has orthopnea. No headache. No sore throat or earache. No runny nose. Appetite is down. No nausea or abdominal pain. Normal bowel and bladder movements. Denies any rash. Outpatient labs on November 14 showed creatinine of 2.5 and potassium of 5.6 and since then Lasix, spironolactone and losartan are on hold. Repeat labs in November 24, 2023 showed potassium 4.3 creatinine 1.3 . Past medical history. As mentioned above Past surgical history. Left breast biopsy. Bronchoscopy. Cryocautery of cervix. Dilatation curettage for missed . Lumbar findings fusion. Lymphadenectomy via thoracoscopic on left side. Puncture drainage of left breast cyst. Removal of jaw joint cartilage. Left single lobectomy of lung. Social history. Quit smoking in March 2023. Smoked 1 pack a day for 39 years. Alcohol not drinking currently. No drug use. Family history. Brother has allergies. Father had allergies. Diabetes. Suicide attempts. Mother had breast cancer. COPD. Peripheral vascular disease. Thyroid disorder. Sister has asthma. Sister has multiple sclerosis. Admission Exam Per Admitting Provider General- adult Head- atraumatic Eyes- PERRL, EOMI, anicteric Neck- supple, no JVD. Lungs- clear to auscultation mild bilateral crackles and mild wheezing Heart- regular rhythm; no murmur, no gallop. Abdomen- normal bowel sounds, soft, nontender, no distension. Extremities- b/l lower extremity edema present, no erythema seen. Neuro- alert, oriented ; PERRL, no facial palsy; no dysarthria; moves extremities. Principal Dx & Hospital Course #1 = Principal Diagnosis (1) Acute exacerbation of chronic obstructive pulmonary disease: per previous hospitalist notes with addendum: 58-year-old female with past medical history significant for hyperlipidemia, moderate COPD, history of left lung neoplasm s/p lobectomy, history of tobacco abuse states currently not smoking since last 3 months, hypertension, anxiety, depression, bipolar disorder, hyperlipidemia, abdominal aortic stenosis, diastolic CHF, hypertension, GERD, dysplasia of cervix low-grade, osteoporosis, heterogeneous factor V Leyden mutation, history of condyloma acuminatum, presents with shortness of breath going on for last 2 days. Also has lower rib pain which is getting better. Has some cough. Denies any fevers. Walking short distance making her short of breath. Has orthopnea. No headache. No sore throat or earache. No runny nose. Appetite is down. No nausea or abdominal pain. Normal bowel and bladder movements. Denies any rash. Outpatient labs on November 14 showed creatinine of 2.5 and potassium of 5.6 and since then Lasix, spironolactone and losartan are on hold. Repeat labs in November 24, 2023 showed potassium 4.3 creatinine 1.3 . Acute Hypoxic Respiratory Failure Secondary to acute COPD exasperation and is complicated by acute on chronic diastolic heart failure Possible pneumonia Nebs [id number] and as needed IV Solu-Medrol Has been on intravenous Rocephin and will add oral doxycycline for atypical coverage Procalcitonin negative Clinically much better and will continue current management If the condition gets worse will get pulmonary involved Will monitor 12/06 Cardiology consulted given IV Lasix CXR: pleural effusion resolving Lasix IV transitioned to PO Losartan changed to Entresto doubt pneumonia patient improved rapidly with diuresis, CXR also improved significantly Acute diastolic CHF Will place on IV Lasix 40 mg twice daily Echo-the LV is normal in size, there is mild concentric LVH, the left ventricular wall motion is normal with EF 55 to 60%, grade 1 diastolic dysfunction, LA size is normal, there is mild mitral regurgitation, Doppler finding do not suggest pulmonary hypertension, and there is trivial circumferential pericardial effusion of known hemodynamic significance Telemetry-no arrhythmias Appreciate cardiology input and recommendation management per above 12/06 diuresed well CXR pleural effusion resolving transtioned to PO Lasix Hypertension In October when she was in the hospital she had hypertensive urgency She was discharged on on amlodipine, hydralazine, losartan, spironolactone, terazosin, Coreg Currently Lasix, losartan and spironolactone are on hold as labs done on November 14 showed potassium of 5.6 and creatinine of 2.5 Blood pressure remains on the upper side and will monitor 3/8 improving per Cardio: * Continue Coreg 25 mg po BID * Continue Aldactone 50 mg po per day * STOP Losartan 50 mg po per day * Start Entresto 49/51 mg po BID * Continue Norvasc 10 mg po per day * Continue Hydralazine 50 mg po TID Elevated troponin Denies chest pain Serial troponins are negative for any ACS and echo has been grade 1 diastolic dysfunction Severe abdominal aortic stenosis CT abdomen/pelvis: 1. Severe atherosclerotic disease is seen in the aorta both above and below the origin of the renal arteries. 2. There is mild pelvic free fluid which is nonspecific. No bowel wall thickening is seen to suggest ischemic bowel. Vascular Surgery consulted: Pt with severe stenosis of infrarenal abd aorta, and BLE claudication sx. No rest pain or tissue loss to indicate urgent intervention. Claudication is limiting her activity. Possibly some element of neurogenic claudication as well as arterial claudication. Discussed with pt that correction of her AA stenosis would likely involve open surgery and she will be better served by having this done at a tertiary center. Offered to schedule pt at [facility] for [place] if she chooses. She will call if she wishes to schedule at [facility]. Please call if needed. Also discussed with Dr. 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 Hyperlipidemia On statin DVT prophylaxis Lovenox Disposition Telemetry Full code Discharge Exam General- oriented x 3, not in distress, speaks in sentences with no effort or accessory muscle use Eyes- anicteric Neck- no JVD Lungs- clear breath sounds bilaterally, no rales/wheezes Heart- normal rate, regular rhythm; no murmurs Abdomen- normal bowel sounds, nondistended, soft, nontender Extremities- no pretibial edema, no calf tenderness Neuro- alert, oriented x 3; no gross focal neurologic deficits Skin- warm & dry Updated Medication List Medication Instructions Recorded Confirmed Type aripiprazole 5 mg tablet (Abilify) 5 mg PO DAILY 12/03/19 12/03/23 History aspirin 81 mg tablet 81 mg PO DAILY 02/04/20 12/03/23 History cetirizine 10 mg tablet 10 mg PO DAILY 02/04/20 12/03/23 History clonazepam 0.5 mg tablet 0.5 mg PO BID PRN Anxiety 02/04/20 12/03/23 History amlodipine 10 mg tablet 10 mg PO DAILY 08/01/21 12/03/23 History albuterol sulfate 90 mcg/actuation 2 puff inhalation Q4H PRN 02/20/22 12/03/23 Rx aerosol inhaler (Ventolin HFA) shortness of breath ,coughing or wheezing #18 grams atorvastatin 20 mg tablet 20 mg PO DAILY 06/11/23 12/03/23 History carvedilol 25 mg tablet 25 mg PO BID 06/11/23 12/03/23 History paroxetine HCl 40 mg tablet 40 mg PO DAILY 06/11/23 12/03/23 History albuterol sulfate 2.5 mg/3 mL 2.5 mg (3 mL) inhalation Q4H PRN 06/15/23 12/03/23 Rx (0.083 %) solution for nebulization shortness of breath or wheezing #180 mL benzonatate 100 mg capsule 100 mg PO TID PRN cough #20 caps 06/15/23 12/03/23 Rx hydralazine 50 mg tablet 50 mg PO TID #90 tabs 06/15/23 12/03/23 Rx terazosin 1 mg capsule 2 mg (2 x 1 mg) PO HS #30 caps 06/15/23 12/03/23 Rx umeclidinium 62.5 mcg/actuation 1 inh inhalation DAILY #90 puffs 07/10/23 12/03/23 Rx blister powder for inhalation (Incruse Ellipta) fluticasone propionate 50 1 spray intranasal BID #18.2 mL 10/19/23 12/03/23 Rx mcg/actuation nasal spray,suspension (Flonase Allergy Relief) acetaminophen 650 mg 650 mg PO Q8H PRN Pain 10/21/23 12/03/23 History tablet,extended release alendronate 70 mg tablet 70 mg PO WK 10/21/23 12/03/23 History ergocalciferol (vitamin D2) 1,250 1,250 mcg PO WK 10/21/23 12/03/23 History mcg (50,000 unit) capsule (Vitamin D2) ipratropium 0.5 mg-albuterol 3 mg 3 ml NEB QIDR 7 days #90 mL 10/27/23 12/03/23 Rx (2.5 mg base)/3 mL nebulization soln spironolactone 25 mg tablet 50 mg (2 x 25 mg) PO QAM 30 days 10/27/23 12/03/23 Rx #60 tabs furosemide 40 mg tablet 40 mg PO QAM 30 days #30 tabs 12/07/23 Rx sacubitril 97 mg-valsartan 103 mg 1 tab PO BID 30 days #60 tabs 12/07/23 Rx tablet (Entresto) Hospital Stay Data Consultations 12/03/23 19:16 ED Decision to Admit Stat 12/04/23 08:00 Consult Cardiology Routine 12/06/23 15:51 Consult Vascular Surgery Routine Diagnostic Imagining Performed Laboratory Results WBC 4.42 K/ul (4.8-10.8) L D 12/04/23 06:40 RBC 3.40 M/uL (4.20-5.40) L 12/04/23 06:40 Hgb 9.9 g/dl (12.0-16.0) L 12/04/23 06:40 Hct 29.4 % (37.0-47.0) L 12/04/23 06:40 MCV 86.5 fL (80.0-100.0) 12/04/23 06:40 MCH 29.1 pg (25.0-34.0) 12/04/23 06:40 MCHC 33.7 g/dL (32.0-36.0) 12/04/23 06:40 RDW Std Deviation 49.0 fL (36.4-46.3) H 12/04/23 06:40 RDW Coeff of Shanna 15.7 % (11.5-14.5) H 12/04/23 06:40 Plt Count 187 K/uL (130-400) 12/04/23 06:40 MPV 10.2 fL (9.4-12.4) 12/04/23 06:40 Immature Gran % (Auto) 0.2 % 12/04/23 06:40 Neut % (Auto) 88.2 % 12/04/23 06:40 Lymph % (Auto) 10.9 % 12/04/23 06:40 [place] % (Auto) 0.5 % 12/04/23 06:40 Eos % (Auto) 0.0 % 12/04/23 06:40 Baso % (Auto) 0.2 % 12/04/23 06:40 Neut # (Auto) 3.90 K/uL (1.40-6.50) 12/04/23 06:40 Lymph # (Auto) 0.48 K/uL (1.20-3.40) L 12/04/23 06:40 [place] # (Auto) 0.02 K/uL (0.11-0.59) L 12/04/23 06:40 Eos # (Auto) 0.00 K/uL (0.00-0.50) 12/04/23 06:40 Baso # (Auto) 0.01 K/uL (0.00-0.20) 12/04/23 06:40 Immature Gran # (Auto) 0.01 K/uL (0.01-0.20) 12/04/23 06:40 Polychromasia 1+ 12/04/23 06:40 VBG pH 7.35 (7.36-7.41) L 12/03/23 18:49 VBG pCO2 39 mmHg (38-50) 12/03/23 18:49 VBG pO2 67 mmHg 12/03/23 18:49 VBG HCO3 22 mmol/L 12/03/23 18:49 VBG O2 Saturation 93.6 % 12/03/23 18:49 VBG Base Excess -3.8 mEq/L 12/03/23 18:49 Sodium 138 mmol/L (136-145) 12/07/23 05:50 Potassium 4.0 mmol/L (3.5-5.1) 12/07/23 05:50 Chloride 106 mmol/L (98-107) 12/07/23 05:50 Carbon Dioxide 27 mmol/L (21-32) 12/07/23 05:50 Anion Gap 5 (3-11) 12/07/23 05:50 BUN 29 mg/dl (6-23) H 12/07/23 05:50 Creatinine 0.95 mg/dl (0.6-1.2) 12/07/23 05:50 Est Cr Clr Drug Dosing 49.8 ml/min 12/07/23 05:50 Est GFR ( Amer) 77.1 ml/min 12/07/23 05:50 Est GFR (Non-Af Amer) 66.5 ml/min 12/07/23 05:50 BUN/Creatinine Ratio 30.5 (10-20) H 12/07/23 05:50 Glucose 99 mg/dl (70-99(Fasting)) 12/07/23 05:50 Calcium 7.7 mg/dl (8.6-10.3) L 12/07/23 05:50 Magnesium 2.2 mg/dl (1.7-2.4) 12/06/23 06:12 Total Bilirubin 1.5 mg/dl (0.2-1.0) H 12/03/23 18:15 AST 20 U/L (13-39) 12/03/23 18:15 ALT 17 U/L (7-52) 12/03/23 18:15 Alkaline Phosphatase 88 U/L (34-104) 12/03/23 18:15 Troponin I High Sens 10.0 pg/ml (0-14) 12/04/23 10:59 C-Reactive Protein 2.23 mg/dl (0-0.5) H 12/03/23 18:15 Total Protein 6.9 gm/dl (6.0-8.3) 12/03/23 18:15 Albumin 4.3 gm/dl (3.4-5.0) 12/03/23 18:15 Globulin 2.6 gm/dl (2.5-4.0) 12/03/23 18:15 Albumin/Globulin Ratio 1.7 (0.9-2) 12/03/23 18:15 Procalcitonin < 0.02 ng/ml (0-0.5) 12/03/23 18:15 Adenovirus (PCR) Not Detected (NotDetected) 12/03/23 18:15 B. pertussis DNA (PCR) Not Detected (NotDetected) 12/03/23 18:15 B.parapertussis DNA PCR Not Detected (NotDetected) 12/03/23 18:15 C. pneumoniae DNA (PCR) Not Detected (NotDetected) 12/03/23 18:15 Coronavirus OC43 (PCR) Not Detected (NotDetected) 12/03/23 18:15 Coronavirus HKU1 (PCR) Not Detected (NotDetected) 12/03/23 18:15 Coronavirus 229E (PCR) Not Detected (NotDetected) 12/03/23 18:15 SARS-CoV-2 (PCR) Not Detected (NotDetected) 12/03/23 18:15 Coronavirus NL63 (PCR) Not Detected (NotDetected) 12/03/23 18:15 Human Metapneumovir PCR Not Detected (NotDetected) 12/03/23 18:15 Influenza Type A (PCR) Not Detected (NotDetected) 12/03/23 18:15 Influenza Type B (PCR) Not Detected (NotDetected) 12/03/23 18:15 M. pneumoniae (PCR) Not Detected (NotDetected) 12/03/23 18:15 Parainfluenza 1 (PCR) Not Detected (NotDetected) 12/03/23 18:15 Parainfluenza 2 (PCR) Not Detected (NotDetected) 12/03/23 18:15 Parainfluenza 3 (PCR) Not Detected (NotDetected) 12/03/23 18:15 Parainfluenza 4 (PCR) Not Detected (NotDetected) 12/03/23 18:15 RSV (PCR) Not Detected (NotDetected) 12/03/23 18:15 Entero/Rhino (PCR) Not Detected (NotDetected) 12/03/23 18:15 Impressions Chest X-Ray 12/05/23 08:31 XR chest 1V portable CLINICAL HISTORY: ff up pleural effusion, pneumonia TECHNIQUE: Single frontal radiograph of the chest was obtained. Comparison: Comparison is made to chest radiograph 12/03/2023 FINDINGS: No lines and tubes are seen. Cardiomegaly is noted. The aortic arch is calcified. Reticular interstitial opacities are seen. Redemonstration of small bilateral pleural effusions with chronic elevation of the left hemidiaphragm. IMPRESSION: Stable bilateral pleural effusions. No evidence of pneumonia. ACT 112: Negative or not required by law. Electronically signed by: Kaveh Gordon M.D. 12/05/2023 8:52 AM Abdomen/Pelvis CTA 12/06/23 09:11 CT angio abd pelvis wo/w con CLINICAL HISTORY: abdominal aortic stenosis TECHNIQUE: Multidetector row helical CT of the abdomen and pelvis was performed, following intravenous administration of iodinated contrast. No oral contrast was administered. Automated dose lowering techniques and/or adjustment according to patient size were utilized for this exam. Coronal and sagittal reformations were obtained. MIP and 3D volume rendered reconstructions were obtained. CT DOSE: 759.87 mGy.cm Comparison: Comparison is made to PET/CT 07/14/[address] abdomen pelvis 11/27/2007 FINDINGS: Lower chest: Small bilateral pleural effusions. Emphysema is seen. There is biatrial enlargement and a small pericardial effusion. Liver: Unremarkable. No focal lesions are seen. Gallbladder and biliary tree: No calcified gallstones. Normal caliber wall. No intra- or extrahepatic biliary ductal dilation. Pancreas: Unremarkable, no focal lesions. Spleen: Unremarkable. Adrenals: Unremarkable. Kidneys and ureters: Unremarkable. Bladder: Unremarkable. Reproductive organs: Unremarkable. Bowel: Unremarkable. Lymph nodes Retroperitoneal: Unremarkable. Pelvic: Unremarkable. Mesenteric: Unremarkable. Peritoneum: Small amount of pelvic fluid is seen. Abdominal wall: Unremarkable. Bones: Unremarkable. CT angiogram: The abdominal aortic contours appear intact without evidence of aneurysmal dilatation and/or dissection. Severe atherosclerotic disease is seen with near complete occlusion of the infrarenal aorta. The origin of the superior mesenteric artery is significantly narrowed by atherosclerosis. IMPRESSION: 1. Severe atherosclerotic disease is seen in the aorta both above and below the origin of the renal arteries. 2. There is mild pelvic free fluid which is nonspecific. No bowel wall thickening is seen to suggest ischemic bowel. ACT 112: Negative or not required by law. Electronically signed by: Kaveh Gordon M.D. 12/06/2023 2:08 PM Pending Results Patient Have Any Pending Studies at Discharge: No Discharge Instructions Given to Patient (Per Discharging Provider) PLEASE REFER TO YOUR NEW MEDICATION LIST AND FOLLOW INSTRUCTIONS CAREFULLY. YOUR NEW MEDICATIONS INCLUDE: Entresto-for blood pressure control Lasix-diuretic for CHF PLEASE CALL YOUR PRIMARY CARE PHYSICIAN OR RETURN TO THE ER IF WITH WORSENING OF SYMPTOMS, INCLUDING Shortness of breath, chest pain, palpitations, dizziness, leg swelling, Abdominal pain, lower extremity pain, etc. FOLLOW UP WITH PRIMARY CARE PHYSICIAN, GLASS BLOWER, VASCULAR SURGEON OUTLINED ABOVE. Total Time Total Time Spent Total Time Spent (In Minutes): >30 minutes
== END 2023-12-07 15:35 | disposition home or self-care (01) | DRG 291 ==
LOC: ED 17:45 → 2S 21:01 → SUATTDRO 21:01 → 2S 21:59
DX: J96.20 Acute and chronic respiratory failure, unspecified whether with hypoxia or hypercapnia; J18.9 Pneumonia, unspecified organism; Z88.2 Allergy status to sulfonamides; J43.9 Emphysema, unspecified; I50.33 Acute on chronic diastolic (congestive) heart failure; I13.0 Hypertensive heart and chronic kidney disease with heart failure and stage 1 through stage 4 chronic kidney disease, or unspecified chronic kidney disease; I50.31 Acute diastolic (congestive) heart failure; Z88.1 Allergy status to other antibiotic agents; J44.1 Chronic obstructive pulmonary disease with (acute) exacerbation; N17.9 Acute kidney failure, unspecified; Z88.8 Allergy status to other drugs, medicaments and biological substances

== ENCOUNTER 2024-05-27 00:20 | Inpatient (IN) ==
[2024-05-27] MEDS: ALBUT/IPRATROP 3MG/0.5MG NEB 3 ML VIAL NEB STA ×2 (00:33→03:37)
[2024-05-27] MEDS: ALBUT/IPRATROP 3MG/0.5MG NEB 3 ML VIAL ONE (00:42)
--- NOTE | 2024-05-27 00:58 | Emergency Department Note ---
Impression & Plan Dyspnea, Pneumonia, Hypoxia ED Provider Note ED Provider Note NAME: MERLE JENSEN AGE:59 SEX: Female : 1965 ARRIVES VIA: Private vehicle INFORMANT: Patient ED PROVIDER(s): Joann Brothers DO CHIEF COMPLAINT: Shortness of breath HPI: This is a 59-year-old female presents emergency department due to increased shortness of breath. She states she has a history of COPD, and does not wear oxygen at home. She was noted by triage nurse to be hypoxic at 74% and was immediately placed in a room and I was asked to see the patient urgently. She was placed on oxygen with improvement of the 92% by the time I entered the room. Family bedside states patient fell off scaffolding yesterday that was a few feet up, but didn't fall to the ground but was caught awkwardly with her LUE hanging on the side of the scaffolding. She denies head injury or LOC. Patient states she did use her nebulizer at home prior to arrival without any significant improvement. She states symptoms worsened after her fall yesterday. She denies any recent cough, change in sputum production, or other URI symptoms. PAST MEDICAL HISTORY:See Below PAST SURGICAL HISTORY:See Below FAMILY HISTORY:See Below SOCIAL HISTORY:See Below HOME MEDICATIONS:See Below ALLERGIES:See Below VITALS:See Below PHYSICAL EXAMINATION: GENERAL: alert, uncomfortable appearing, well nourished, moderate distress, non- toxic EYE EXAM: normal conjunctiva, PERRL and EOM's grossly intact OROPHARYNX: no exudate, no erythema, lips, buccal mucosa, and tongue normal and mucous membranes are moist NECK: supple, no nuchal rigidity, no adenopathy, non-tender LUNGS: Clear to auscultation. Normal chest wall mechanics, no w/r/r, tachypnea noted, increased work of breathing HEART: no murmurs, S1 normal and S2 normal ABDOMEN: abdomen soft, non-tender, normo-active bowel sounds, no masses, no rebound or guarding. BACK: Back is symmetrical on inspection and there is no deformity, no midline tenderness, no CVA tenderness. SKIN: no rashes, petechiae, orbruising UPPER EXTREMITIES: upper extremities are grossly normal. FROM, nml pulses b/l. LOWER EXTREMITIES: No pitting edema. FROM, nml pulses b/l. NEURO EXAM: Normal sensorium, cranial nerves II-XII grossly intact, normal speech, no facial droop,nogross weakness of arms, no gross weakness of legs. Gross sensation intact. No ataxia. Vital Signs: reviewed and remarkable Differential Diagnosis: pneumonia, bronchitis, COPD/Asthma exacerbation, pneumothorax, pulmonary embolism, congestive heart failure, acute coronary syndrome, as well as others were considered MEDICAL DECISION MAKING: This is a 59 yo female who presented to the ER due to worsening dyspnea at home. On arrival, patient with increased WOB and significant hypoxia in the 70's. She was placed on an oxy mask with slow improvement. Given COPD hx, duoneb added and respiratory contacted as a precaution in case she needed additional airway resources. Labs drawn and sent, IV established, EKG and CXR performed and interpreted at bedside, and patient placed on telemetry. CXR at bedside with obvious pna, no evidence of pneumothorax or trauma. Mild leukocytosis noted and mild troponin elevated likely from demand from hypoxia. Patient given IV solumedrol additionally. Biofire nasal swab negative for viral origin. Patient given IV antibiotics as precaution given hx of pna, appearance of pna on cxr, and hypoxia. Patient stated sx feel similar to prior pna. No LE edema. I feel CHF or PE less likely. I do not suspect primary cardiac etiology of her symptoms. Consultation(s): 0140: Discussed with Dr. Pascual, [facility] for additional evaluation. ER Treatment Provided: See below Diagnostics Interpreted By Me: -ECG: Normal sinus at 69, normal axis, normal intervals, no acute ST/T wave changes -Cardiac Monitoring: An order was placed for continuous cardiac monitoring. The monitor shows a rate of 70 with normal sinus rhythm. -Laboratory studies: As stated above and show below. -Imaging studies: cxr: Right lower lobe pneumonia, no wide mediastinum, no rib fracture, no pneumothorax, no pleural effusion Triage Nursing Note Reviewed Prior/Outside Records Reviewed Critical care: Critical care of 36 min performed to assess and manage high likelihood of life- threatening hypoxia and pna, involving labs and imaging performed with assessment to evaluate dyspnea diagnosis with frequent reassessment. This time includes bedside time, treatment discussions with patient/family/consultants, documentation time and excludes procedure time. Past Med/Surg History Problem List Hypertension, uncontrolled History of adenocarcinoma of lung [place] (acute kidney injury) Acute hypoxemic respiratory failure Hypoxia (Acute) Pneumonia (Acute) Dyspnea (Acute) Malignant neoplasm of upper lobe, left bronchus or lung Stenosis of abdominal aorta Acute on chronic diastolic heart failure with preserved ejection fraction Acute exacerbation of chronic obstructive pulmonary disease (Acute) Pneumonia (Acute) Respiratory failure (Acute) Hypertensive urgency Pneumonia (Acute) Pleural effusion Atelectasis Acute CHF CKD (chronic kidney disease) stage 2, GFR 60-89 ml/min DVT prophylaxis Acute respiratory failure with hypoxia COPD exacerbation (Acute) Hypoxia (Acute) Dyspnea (Acute) Pneumonia (Acute) Acute hyponatremia (Acute) Chest discomfort Elevated troponin Respiratory failure with hypoxia Hyponatremia Essential hypertension Dyslipidemia Heterozygous factor V Leiden mutation Pulmonary emphysema (Chronic) Medical History Anaphylaxis History of temporomandibular joint disorder GERD (gastroesophageal reflux disease) Bipolar disorder Breast fibroadenoma 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 Pulmonary nodule Arthritis Allergic rhinitis Lumbar stenosis (09/25/14) Surgical History History of D&C History of lumbar surgery H/O breast surgery H/O splenectomy Family History Father Hypertension Mother Lung cancer Other Breast cancer COPD (chronic obstructive pulmonary disease) Diabetes Social History Smoking Status: Former smoker Tobacco Type: Cigarettes Age Quit Using Tobacco: 58; Cigarettes Per Day: 3; Second Hand Exposure: No; Hx Alcohol Use: No Hx Substance Use: No Preferred Language: Bengali Communication Ability: Effective Lead Scientist Required: No Beliefs That Will Affect Care: None marital status: Current Living Situation: Spouse current occupational status: disabled Other Information That Helps Us Care for You: No Feels Safe at Home: Yes Safety Concerns: Feels Safe At This Time Assistive Devices: Nebulizer Allergies Allergies Allergy/AdvReac Type Severity Reaction Status Date / Time Bactrim Allergy Intermediate HIVES Verified 07/26/15 07:15 Sulfa (Sulfonamide Allergy Intermediate BACTRIM- Verified 05/27/24 02:11 Antibiotics) HIVES sulfamethoxazole Allergy Intermediate HIVES Verified 05/27/24 02:11 trimethoprim Allergy Intermediate HIVES Verified 05/27/24 02:11 metaxalone Allergy Unknown Unknown Verified 05/27/24 02:11 morphine Allergy Unknown . Verified 05/27/24 02:11 neomycin Allergy Unknown Unknown Verified 05/27/24 02:11 Quinolones Allergy Unknown Unknown Verified 05/27/24 02:11 tetracycline Allergy Unknown Hives Verified 05/27/24 02:11 amoxicillin [From Augmentin] Allergy Hives Verified 05/27/24 02:11 clavulanic acid Allergy Hives Verified 05/27/24 02:11 [From Augmentin] umeclidinium Allergy Hives Verified 05/27/24 02:11 [From Anoro Ellipta] vilanterol Allergy Unknown Verified 05/27/24 02:11 [From Anoro Ellipta] erythromycin base AdvReac Unknown Nausea Verified 05/27/24 02:23 moxifloxacin AdvReac Unknown hives Verified 05/27/24 02:11 Home Meds Home Medications Medication Instructions Recorded Confirmed aripiprazole 5 mg tablet (Abilify) 5 mg PO DAILY 12/03/19 05/27/24 aspirin 81 mg tablet 81 mg PO DAILY 02/04/20 05/27/24 cetirizine 10 mg tablet 10 mg PO DAILY 02/04/20 05/27/24 clonazepam 0.5 mg tablet 0.5 mg PO BID PRN Anxiety 02/04/20 05/27/24 amlodipine 10 mg tablet 10 mg PO DAILY 08/01/21 05/27/24 atorvastatin 20 mg tablet 20 mg PO DAILY 06/11/23 05/27/24 carvedilol 25 mg tablet 25 mg PO BID 06/11/23 05/27/24 paroxetine HCl 40 mg tablet 40 mg PO DAILY 06/11/23 05/27/24 acetaminophen 650 mg 650 mg PO Q8H PRN Pain 10/21/23 05/27/24 tablet,extended release furosemide 40 mg tablet 20 mg PO BID 05/27/24 05/27/24 losartan 50 mg PO BID 05/27/24 05/27/24 Previous Rx's Medication Instructions Recorded albuterol sulfate 2.5 mg/3 mL 2.5 mg (3 mL) inhalation Q4H PRN 06/15/23 (0.083 %) solution for nebulization shortness of breath or wheezing #180 mL benzonatate 100 mg capsule 100 mg PO TID PRN cough #20 caps 06/15/23 hydralazine 50 mg tablet 50 mg PO TID #90 tabs 06/15/23 terazosin 1 mg capsule 2 mg (2 x 1 mg) PO HS #30 caps 06/15/23 umeclidinium 62.5 mcg/actuation 1 inh inhalation DAILY #90 puffs 07/10/23 blister powder for inhalation (Incruse Ellipta) albuterol sulfate 90 mcg/actuation 2 puff inhalation Q4H PRN 01/04/24 aerosol inhaler (Ventolin HFA) shortness of breath ,coughing or wheezing #18 grams Results & Data (ED) Vital Signs Vital Signs - 24 hr 05/27/24 00:24 05/27/24 00:25 05/27/24 00:34 Temperature 36.6 C Temperature Source Temporal Artery Scan Pulse Rate 79 70 Pulse Rate [Apical] Respiratory Rate 32 H Respiratory Effort / Characteristics Labored Respiratory Depth Respiratory Pattern Blood Pressure 201/74 H Blood Pressure [Left Arm] Blood Pressure Mean 116 Blood Pressure Mean [Left Arm] Pulse Oximetry 75 L 75 L Oxygen Delivery Method Room Air Oxymask Oxygen Flow Rate Sepsis Recent Fever Within 48 Hours No Sepsis New/Unexplained Change in Mental Status N/A Sepsis Action Taken by Nursing No Action Required Oxygen Flow Rate - Titration 10 Pulse Oximetry Post Tiitration 98 05/27/24 00:37 05/27/24 00:37 Temperature Temperature Source Pulse Rate Pulse Rate [Apical] 67 Respiratory Rate 21 Respiratory Effort / Characteristics Spontaneous Labored Short of Breath Respiratory Depth Shallow Respiratory Pattern Tachypnea Blood Pressure Blood Pressure [Left Arm] 167/74 H Blood Pressure Mean Blood Pressure Mean [Left Arm] 105 Pulse Oximetry 95 Oxygen Delivery Method Nebulizer Nebulizer Oxygen Flow Rate 15 15 Sepsis Recent Fever Within 48 Hours Sepsis New/Unexplained Change in Mental Status Sepsis Action Taken by Nursing Oxygen Flow Rate - Titration Pulse Oximetry Post Tiitration Laboratory Data 05/28/24 04:29 05/28/24 04:29 Lab Results 05/27/24 05/27/24 Range/Units 00:44 01:46 WBC 10.81 H (4.8-10.8) K/ul RBC 3.51 L (4.20-5.40) M/uL Hgb 10.0 L (12.0-16.0) g/dl Hct 29.7 L (37.0-47.0) % MCV 84.6 (80.0-100.0) fL MCH 28.5 (25.0-34.0) pg MCHC 33.7 (32.0-36.0) g/dL RDW Std Deviation 45.9 (36.4-46.3) fL RDW Coeff of Shanna 14.9 H (11.5-14.5) % Plt Count 189 (130-400) K/uL MPV 10.9 (9.4-12.4) fL Immature Gran % (Auto) 0.4 % Neut % (Auto) 74.8 % Lymph % (Auto) 16.5 % Bibb % (Auto) 6.1 % Eos % (Auto) 1.3 % Baso % (Auto) 0.9 % Neut # (Auto) 8.09 H (1.40-6.50) K/uL Lymph # (Auto) 1.78 (1.20-3.40) K/uL Bibb # (Auto) 0.66 H (0.11-0.59) K/uL Eos # (Auto) 0.14 (0.00-0.50) K/uL Baso # (Auto) 0.10 (0.00-0.20) K/uL Immature Gran # (Auto) 0.04 (0.01-0.20) K/uL Sodium 126 L (136-145) mmol/L Potassium 4.3 (3.5-5.1) mmol/L Chloride 93 L (98-107) mmol/L Carbon Dioxide 23 (21-32) mmol/L Anion Gap 10 (3-11) BUN 32 H (6-23) mg/dl Creatinine 1.77 H (0.6-1.2) mg/dl Est Cr Clr Drug Dosing 27.4 ml/min Est GFR ( Amer) 36.1 ml/min Est GFR (Non-Af Amer) 31.1 ml/min BUN/Creatinine Ratio 18.1 (10-20) Glucose 129 H (70-99(Fasting)) mg/dl Osmolality 274 L (280-300) mOsm/kg Calcium 8.2 L (8.6-10.3) mg/dl Magnesium 1.6 L (1.7-2.4) mg/dl Total Bilirubin 0.8 (0.2-1.0) mg/dl AST 19 (13-39) U/L ALT 13 (7-52) U/L Alkaline Phosphatase 74 (34-104) U/L Troponin I High Sens 14.1 H (0-14) pg/ml Total Protein 6.8 (6.0-8.3) gm/dl Albumin 4.4 (3.4-5.0) gm/dl Globulin 2.4 L (2.5-4.0) gm/dl Albumin/Globulin Ratio 1.8 (0.9-2) Lipase 36 (11-82) U/L TSH 2.141 (0.300-4.500) uIu/ml Adenovirus (PCR) Not Detected (NotDetected) B. pertussis DNA (PCR) Not Detected (NotDetected) B.parapertussis DNA PCR Not Detected (NotDetected) C. pneumoniae DNA (PCR) Not Detected (NotDetected) Coronavirus OC43 (PCR) Not Detected (NotDetected) Coronavirus HKU1 (PCR) Not Detected (NotDetected) Coronavirus 229E (PCR) Not Detected (NotDetected) SARS-CoV-2 (PCR) Not Detected (NotDetected) Coronavirus NL63 (PCR) Not Detected (NotDetected) Human Metapneumovir PCR Not Detected (NotDetected) Influenza Type A (PCR) Not Detected (NotDetected) Influenza Type B (PCR) Not Detected (NotDetected) M. pneumoniae (PCR) Not Detected (NotDetected) Parainfluenza 1 (PCR) Not Detected (NotDetected) Parainfluenza 2 (PCR) Not Detected (NotDetected) Parainfluenza 3 (PCR) Not Detected (NotDetected) Parainfluenza 4 (PCR) Not Detected (NotDetected) RSV (PCR) Not Detected (NotDetected) Entero/Rhino (PCR) Not Detected (NotDetected) Administered Medications Albuterol (Albut/Ipratrop 3mg/0.5mg Neb 3 Ml Vial) 3 ml NEB Q2H PRN; Protocol PRN Reason: SOB/WHEEZING Stop: 06/26/24 03:41 Last Admin: 08/28/24 07:58 Dose: 3 ml Documented By: Admin: 05/28/24 04:11 Dose: 3 ml Documented By: Admin: 05/27/24 20:30 Dose: 3 ml Documented By: Admin: 05/27/24 14:01 Dose: 3 ml Documented By: LUL Albuterol (Albuterol 0.083% Nebu Soln 3 Ml Vial) 2.5 mg INH Q4R MEDARDO; Protocol Stop: 06/27/24 08:29 Last Admin: 05/28/24 23:29 Dose: 2.5 mg Documented By: Admin: 05/28/24 19:44 Dose: 2.5 mg Documented By: Admin: 05/28/24 15:06 Dose: 2.5 mg Documented By: Admin: 05/28/24 11:34 Dose: 2.5 mg Documented By: MENDY Amlodipine Besylate (Amlodipine Besylate 5 Mg Tab) 10 mg PO DAILY [facility] Stop: 06/26/24 08:59 Last Admin: 05/28/24 08:12 Dose: 10 mg Documented By: Admin: 05/27/24 09:12 Dose: 10 mg Documented By: LUL Aripiprazole (Aripiprazole 5 Mg Tab) 5 mg PO DAILY [facility] Stop: 06/26/24 08:59 Last Admin: 05/28/24 08:12 Dose: 5 mg Documented By: Admin: 05/27/24 09:12 Dose: 5 mg Documented By: LUL Aspirin (Aspirin 81 Mg Ectab) 81 mg PO DAILY [facility] Stop: 06/26/24 08:59 Last Admin: 05/28/24 08:11 Dose: 81 mg Documented By: Admin: 05/27/24 09:12 Dose: 81 mg Documented By: LUL Atorvastatin Calcium (Atorvastatin 20 Mg Tab) 20 mg PO DAILY [facility] Stop: 06/27/24 08:59 Last Admin: 05/28/24 08:11 Dose: 20 mg Documented By: MARTIN Carvedilol (Carvedilol 6.25 Mg Tab) 18.75 mg PO BID [facility] Stop: 06/27/24 20:59 Last Admin: 05/28/24 19:35 Dose: 18.75 mg Documented By: GARCIA Cetirizine HCl (Cetirizine Hcl 10 Mg Tablet) 10 mg PO DAILY [facility] Stop: 06/26/24 08:59 Last Admin: 05/28/24 08:12 Dose: 10 mg Documented By: Admin: 05/27/24 09:12 Dose: 10 mg Documented By: LUL Clonazepam (Clonazepam 0.5 Mg Tab) 0.5 mg PO BID PRN PRN Reason: Anxiety Stop: 06/26/24 04:50 Last Admin: 05/28/24 19:31 Dose: 0.5 mg Documented By: Admin: 05/28/24 08:04 Dose: 0.5 mg Documented By: Admin: 05/27/24 20:05 Dose: 0.5 mg Documented By: NOLAN Fluticasone/Vilanterol (Fluticasone/Vilanterol 100/25mcg 14 Puffs/Inhaler) 1 puffs INH DAILY [facility] Stop: 06/26/24 16:55 Last Admin: 05/28/24 08:12 Dose: 1 puffs Documented By: Admin: 05/27/24 19:48 Dose: 1 puffs Documented By: NOLAN Furosemide (Furosemide 40 Mg/4 Ml Vial) 40 mg IV Q8H [facility] Stop: 06/27/24 09:59 Last Admin: 05/28/24 17:06 Dose: Not Given Documented By: Admin: 05/28/24 10:43 Dose: Not Given Documented By: MARTIN Guaifenesin (Guaifenesin 600 Mg Tabcr) 600 mg PO Q12 [facility] Stop: 06/26/24 20:59 Last Admin: 05/28/24 19:32 Dose: 600 mg Documented By: Admin: 05/28/24 11:57 Dose: 600 mg Documented By: Admin: 05/27/24 21:23 Dose: 600 mg Documented By: NOLAN Heparin Sodium (Porcine) (Heparin Sod 5,000 Unit/0.5 Ml Vial) 5,000 units SQ Q8 [facility] Stop: 06/26/24 13:59 Last Admin: 05/28/24 21:38 Dose: 5,000 units Documented By: Admin: 05/28/24 13:04 Dose: 5,000 units Documented By: Admin: 05/28/24 04:44 Dose: 5,000 units Documented By: Admin: 05/27/24 21:23 Dose: 5,000 units Documented By: Admin: 05/27/24 14:01 Dose: 5,000 units Documented By: LUL Hydralazine HCl (Hydralazine Hcl 25 Mg Tab) 75 mg PO TID [facility] Stop: 06/27/24 13:59 Last Admin: 05/28/24 19:37 Dose: 75 mg Documented By: Admin: 05/28/24 13:04 Dose: 75 mg Documented By: MARTIN Promethazine HCl (Phenergan) 6.25 mg in 50.25 mls @ 201 mls/hr IV Q6H PRN PRN Reason: Nausea And Vomiting Stop: 06/26/24 03:26 Last Infusion: 05/28/24 13:14 Dose: Infused Documented By: Admin: 05/28/24 12:58 Dose: 201 mls/hr Documented By: Infusion: 05/27/24 10:56 Dose: Infused Documented By: Admin: 05/27/24 10:01 Dose: 201 mls/hr Documented By: LUL Ceftriaxone Sodium (Rocephin) 2,000 mg in 50 mls @ 100 mls/hr IV Q24H [facility] Stop: 06/07/24 08:59 Last Infusion: 05/28/24 10:43 Dose: Infused Documented By: Admin: 05/28/24 10:03 Dose: 100 mls/hr Documented By: MARTIN Methylprednisolone 40 mg/ (Syringe) 0.64 mls @ 1.5 mls/min IV BID [facility] Stop: 06/27/24 08:59 Last Admin: 05/28/24 21:38 Dose: 1.5 mls/min Documented By: Admin: 05/28/24 11:57 Dose: 1.5 mls/min Documented By: MARTIN Paroxetine HCl (Paroxetine Hcl 20 Mg Tab) 40 mg PO DAILY [facility] Stop: 06/26/24 08:59 Last Admin: 05/28/24 08:12 Dose: 40 mg Documented By: Admin: 05/27/24 09:12 Dose: 40 mg Documented By: LUL Terazosin HCl (Terazosin Hcl 1 Mg Cap) 2 mg PO HS [facility] Stop: 06/26/24 20:59 Last Admin: 05/28/24 19:34 Dose: 2 mg Documented By: Admin: 05/27/24 19:48 Dose: 2 mg Documented By: NOLAN Discontinued Medications Albuterol (Albut/Ipratrop 3mg/0.5mg Neb 3 Ml Vial) Confirm Administered Dose 3 ml .ROUTE .STK-MED ONE Stop: 05/27/24 00:32 Last Admin: 05/27/24 00:42 Dose: Not Given Documented By: FIFI Albuterol (Albut/Ipratrop 3mg/0.5mg Neb 3 Ml Vial) 3 ml NEB NOW STA; Protocol Stop: 05/27/24 00:34 Last Admin: 05/27/24 00:33 Dose: 3 ml Documented By: FIFI Albuterol (Albut/Ipratrop 3mg/0.5mg Neb 3 Ml Vial) 3 ml NEB NOW STA; Protocol Stop: 05/27/24 02:53 Last Admin: 05/27/24 03:37 Dose: 3 ml Documented By: DOMINIK Albuterol (Albut/Ipratrop 3mg/0.5mg Neb 3 Ml Vial) 3 ml NEB QIDR MEDARDO; Protocol Stop: 06/26/24 06:59 Last Admin: 05/27/24 06:50 Dose: 3 ml Documented By: MINERVA Albuterol (Albuterol 0.083% Nebu Soln 3 Ml Vial) 2.5 mg INH Q4H MEDARDO; Protocol Stop: 06/27/24 08:29 Last Admin: 05/28/24 08:53 Dose: Not Given Documented By: MARTIN Carvedilol (Carvedilol 12.5 Mg Tab) 12.5 mg PO BIDM [facility] Stop: 06/26/24 07:59 Last Admin: 05/27/24 19:48 Dose: 12.5 mg Documented By: Admin: 05/27/24 07:37 Dose: 12.5 mg Documented By: LUL Carvedilol (Carvedilol 6.25 Mg Tab) 18.75 mg PO NOW ONE Stop: 05/28/24 02:51 Last Admin: 05/28/24 03:58 Dose: 18.75 mg Documented By: NOLAN Furosemide (Furosemide 40 Mg/4 Ml Vial) 40 mg IV ONE ONE Stop: 05/27/24 06:28 Last Admin: 05/27/24 07:37 Dose: 40 mg Documented By: LUL Furosemide (Furosemide 40 Mg/4 Ml Vial) 60 mg IV ONE ONE Stop: 05/28/24 04:29 Last Admin: 05/28/24 04:36 Dose: 60 mg Documented By: NOLAN Furosemide (Furosemide 40 Mg/4 Ml Vial) 40 mg IV ONE ONE Stop: 05/28/24 08:08 Last Admin: 05/28/24 08:54 Dose: 40 mg Documented By: MARTIN Furosemide (Furosemide 40 Mg/4 Ml Vial) 40 mg IV ONE ONE Stop: 05/28/24 13:14 Last Admin: 05/28/24 13:19 Dose: 40 mg Documented By: MARTIN Guaifenesin (Guaifenesin 600 Mg Tabcr) 600 mg PO NOW STA Stop: 05/27/24 03:43 Last Admin: 05/27/24 03:57 Dose: 600 mg Documented By: DOMINIK Hydralazine HCl (Hydralazine Tab 50 Mg Tab) 50 mg PO TID [facility] Stop: 06/26/24 08:59 Last Admin: 05/28/24 08:11 Dose: 50 mg Documented By: Admin: 05/27/24 19:48 Dose: 50 mg Documented By: Admin: 05/27/24 14:01 Dose: 50 mg Documented By: Admin: 05/27/24 09:12 Dose: 50 mg Documented By: LUL Ceftriaxone Sodium (Rocephin) 2,000 mg in 50 mls @ 100 mls/hr IV NOW STA Stop: 05/27/24 01:19 Last Infusion: 05/27/24 01:44 Dose: Infused Documented By: Admin: 05/27/24 01:03 Dose: 100 mls/hr Documented By: FIFI Sodium Chloride (Nss) 1,000 mls @ 125 mls/hr IV .Q8H MEDARDO Stop: 06/26/24 00:59 Last Infusion: 05/27/24 03:00 Dose: Infused Documented By: Admin: 05/27/24 01:02 Dose: 125 mls/hr Documented By: FIFI Magnesium Sulfate/Dextrose (Magnesium Sulfate / D5w) 1 gm in 100 mls @ 100 mls/hr IV NOW STA Stop: 05/27/24 02:29 Last Infusion: 05/27/24 02:44 Dose: Infused Documented By: Admin: 05/27/24 01:43 Dose: 100 mls/hr Documented By: FIFI Sodium Chloride (Nss) 1,000 mls @ 60 mls/hr IV .[id number] ONE Stop: 05/27/24 18:39 Last Infusion: 05/27/24 07:37 Dose: Infused Documented By: Infusion: 05/27/24 06:01 Dose: 60 mls/hr Documented By: Admin: 05/27/24 03:00 Dose: 60 mls/hr Documented By: FIFI Azithromycin 500 mg/ Dextrose 255 mls @ 127.5 mls/hr IV NOW STA Stop: 05/27/24 04:28 Last Infusion: 05/27/24 05:45 Dose: Infused Documented By: Admin: 05/27/24 03:24 Dose: 127.5 mls/hr Documented By: DOMINIK Albumin Human (Albumin 25%) 12.5 gm in 50 mls @ 50 mls/hr IV ONE ONE Stop: 05/27/24 07:26 Last Infusion: 05/27/24 08:59 Dose: Infused Documented By: Admin: 05/27/24 07:37 Dose: 50 mls/hr Documented By: LUL Cefuroxime Sodium 750 mg/ (Dextrose) 57.5 mls @ 115 mls/hr IV Q12H [facility] Stop: 06/07/24 02:59 Last Infusion: 05/28/24 04:41 Dose: Infused Documented By: Admin: 05/28/24 03:59 Dose: 115 mls/hr Documented By: NOLAN Vancomycin HCl 1,000 mg/ (Sodium Chloride) 270 mls @ 200 mls/hr IV ONE ONE Stop: 05/28/24 08:50 Last Infusion: 05/28/24 09:55 Dose: Infused Documented By: Admin: 05/28/24 08:04 Dose: 200 mls/hr Documented By: MARTIN Methylprednisolone (Methylprednisolone 125 Mg/2 Ml Vial) 60 mg IV NOW STA Stop: 05/27/24 00:51 Last Admin: 05/27/24 01:03 Dose: 60 mg Documented By: FIFI Metoprolol Tartrate (Metoprolol Tartrate 1 Mg/Ml Vial) 2.5 mg IV NOW STA Stop: 05/27/24 01:59 Last Admin: 05/27/24 02:59 Dose: Not Given Documented By: FIFI Discharge Plan Visit Data Chief Complaint: Respiratory Problems Stated Complaint: TROUBLE BREATHING ED Provider: Joann Brothers Discharge Problem: Dyspnea, Pneumonia, Hypoxia Patient Disposition: Admitted As Inpatient Discharge Instructions Interventions: ED Discharge Assessment Last Done: 05/27/24 18:59
[2024-05-27] MEDS: SODIUM CHLORIDE 0.9% 1,000 ML IV SCH (01:02)
[2024-05-27] MEDS: methylPREDNISolone 125 MG/2 ML VIAL IV STA (01:03)
[2024-05-27] MEDS: cefTRIAXone SODIUM 2,000 MG/50 ML BAG IV STA (01:03)
[2024-05-27 01:17] LABS: Albumin Globulin Ratio 1.8 (0.9-2); Albumin Level 4.4 gm/dl (3.4-5.0); BUN Creatinine Ratio 18.1 (10-20); Bilirubin,Total 0.8 mg/dl (0.2-1.0); Calcium 8.2 mg/dl (8.6-10.3); Creatinine Clr Calc Pharmacy 27.4 ml/min; Est GFR (African American) 36.1 ml/min; Est GFR (Non-African American) 31.1 ml/min; Globulin 2.4 gm/dl (2.5-4.0); Magnesium 1.6 mg/dl (1.7-2.4); Potassium 4.3 mmol/L (3.5-5.1); Total Protein 6.8 gm/dl (6.0-8.3)
[2024-05-27 01:21] LABS: Basophils % (auto) 0.9 %; Eosinophils # (auto) 0.14 K/uL (0.00-0.50); Eosinophils % (auto) 1.3 %; Hematocrit (blood only) 29.7 % (37.0-47.0); Immature Granulocytes # (auto) 0.04 K/uL (0.01-0.20); Immature Granulocytes % (auto) 0.4 %; Lymphocytes # (auto) 1.78 K/uL (1.20-3.40); Lymphocytes % (auto) 16.5 %; Mean Corpuscular Hemoglobin 28.5 pg (25.0-34.0); Mean Corpuscular Hgb Conc 33.7 g/dL (32.0-36.0); Mean Corpuscular Volume 84.6 fL (80.0-100.0); Mean Platelet Volume 10.9 fL (9.4-12.4); Monocytes # (auto) 0.66 K/uL (0.11-0.59); Monocytes % (auto) 6.1 %; Neutrophils # (auto) 8.09 K/uL (1.40-6.50); Neutrophils % (auto) 74.8 %; Platelet Count 189 K/uL (130-400); RDW Coefficient of Variation 14.9 % (11.5-14.5); RDW Standard Deviation 45.9 fL (36.4-46.3); Red Blood Count 3.51 M/uL (4.20-5.40); White Blood Count 10.81 K/ul (4.8-10.8)
[2024-05-27 01:24] LABS: Troponin I High Sensitivity 14.1 pg/ml (0-14)
[2024-05-27] MEDS: MAGNESIUM SULFATE / D5W 1 GM/100 ML BAG IV STA (01:43)
[2024-05-27 02:44] LABS: Adenovirus PCR Not Detected (NotDetected); Bordetella parapertussis PCR Not Detected (NotDetected); Bordetella pertussis PCR Not Detected (NotDetected); Chlamydia pneumoniae PCR Not Detected (NotDetected); Coronavirus 229E PCR Not Detected (NotDetected); Coronavirus CoV-2 (COVID19)PCR Not Detected (NotDetected); Coronavirus HKU1 PCR Not Detected (NotDetected); Coronavirus NL63 PCR Not Detected (NotDetected); Coronavirus OC43PCR Not Detected (NotDetected); Human Metapneumovirus PCR Not Detected (NotDetected); Influenza A PCR Not Detected (NotDetected); Influenza B PCR Not Detected (NotDetected); Mycoplasma pneumoniae PCR Not Detected (NotDetected); Parainfluenza Virus 1 PCR Not Detected (NotDetected); Parainfluenza Virus 2 PCR Not Detected (NotDetected); Parainfluenza Virus 3 PCR Not Detected (NotDetected); Parainfluenza Virus 4 PCR Not Detected (NotDetected); Respiratory Syncytial VirusPCR Not Detected (NotDetected); Rhinovirus/Enterovirus PCR Not Detected (NotDetected)
[2024-05-27] MEDS: METOPROLOL TARTRATE 1 MG/ML VIAL IV STA (02:59)
[2024-05-27] MEDS: SODIUM CHLORIDE 0.9% 1,000 ML IV ONE (03:00)
--- NOTE | 2024-05-27 03:21 | History & Physical Report ---
Date of Service May 27, 2024 Assessment & Plan (1) Acute hypoxemic respiratory failure: Plan: Secondary to decompensated heart failure History diastolic dysfunction ? Secondary to uncontrolled hypertension ? Persistent pericardial effusion Hypervolemic hyponatremia, acute on chronic ARF on CRI secondary to illness hx PSVT PVD mild MR COPD, current SOB symptoms does not seem related to exacerbation of chronic lung disease lung adenocarcinoma status post surgery, in remission hx inherited hypercoagulable state as per records status post anticoagulation peripartum anticoagulation chronic anemia, hemoglobin at baseline Hyperglycemia ro DM traumatic L shoulder injury intermittent tobacco abuse PCU Diuretic Rx Strict I/Os, daily weights, CHF education, fluid restriction update TTE given persistent pericardial effusion Cardiology consult Re: Decompensated CHF Recheck serum sodium after first dose diuretic Rx, hyponatremia workup baseline UA, hold ARB until kidney function back to baseline Nephrology consultation if with worsening hyponatremia and kidney dysfunction follow official L shoulder Xray read check hemoglobin A1c nicotine replacement therapy prn DVT prophylaxis. Heparin SQ Full Code Total critical care time was 40 minutes. Text document was generated using [employer] voice recognition software. It may contain grammatical or spelling errors. Kindly contact undersigned for clarification of any documentation item in question. History of Present Illness Chief Complaint: Worsening shortness of breath Primary Care Provider: Stefany Benitez MD History obtained from patient and records. Medical history significant for chronic diastolic heart failure (EF 55 to 60%, TTE 2023), PSVT, PVD, mild MR, COPD, hypertension, lung adenocarcinoma status post surgery, GERD, hx inherited hypercoagulable state as per records (early demise: heterozygous Factor V Leiden mutation, heterozygous MTHFR mutation, heterozygous prothrombin gene mutation) status post anticoagulation during , CRI (baseline creatinine 1.3-1.4), chronic hyponatremia, chronic anemia (baseline hemoglobin of 10), cervical dysplasia, mood disorder, intermittent tobacco abuse. Last confinement November 2023 for COPD exacerbation and CHF. TTE showed EF of 55 to 60%, mild MR, diastolic dysfunction with trivial circumferential pericardial effusion. Patient fell off scaffolding yesterday landing on her left shoulder resulting in pain. No head trauma, LOC. Yesterday, patient had worsening SOB without chest pain complaints. Dry cough symptoms. Denies headache. Denies aspiration. Not sure about sick contacts. Not sure about fluid retention. Compliant with home medications. SBP 200s, O2 sat 70s upon arrival at the ER. Ceftriaxone, azithromycin, Solu-Medrol, and neb treatment administered at the ER. Patient currently feeling much better. 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 Verified 05/27/24 02:11 neomycin Allergy Unknown Unknown Verified 05/27/24 02:11 Quinolones Allergy Unknown Unknown Verified 05/27/24 02:11 tetracycline Allergy Unknown Hives Verified 05/27/24 02:11 amoxicillin [From Augmentin] Allergy Hives Verified 05/27/24 02:11 clavulanic acid Allergy Hives Verified 05/27/24 02:11 [From Augmentin] umeclidinium Allergy Hives Verified 05/27/24 02:11 [From Anoro Ellipta] vilanterol Allergy Unknown Verified 05/27/24 02:11 [From Anoro Ellipta] erythromycin base AdvReac Unknown Nausea Verified 05/27/24 02:23 moxifloxacin AdvReac Unknown hives Verified 05/27/24 02:11 Home Medications Medication Instructions Recorded Confirmed Type aripiprazole 5 mg tablet (Abilify) 5 mg PO DAILY 12/03/19 05/27/24 History aspirin 81 mg tablet 81 mg PO DAILY 02/04/20 05/27/24 History cetirizine 10 mg tablet 10 mg PO DAILY 02/04/20 05/27/24 History clonazepam 0.5 mg tablet 0.5 mg PO BID PRN Anxiety 02/04/20 05/27/24 History amlodipine 10 mg tablet 10 mg PO DAILY 08/01/21 05/27/24 History atorvastatin 20 mg tablet 20 mg PO DAILY 06/11/23 05/27/24 History carvedilol 25 mg tablet 25 mg PO BID 06/11/23 05/27/24 History paroxetine HCl 40 mg tablet 40 mg PO DAILY 06/11/23 05/27/24 History albuterol sulfate 2.5 mg/3 mL 2.5 mg (3 mL) inhalation Q4H PRN 06/15/23 05/27/24 Rx (0.083 %) solution for nebulization shortness of breath or wheezing #180 mL benzonatate 100 mg capsule 100 mg PO TID PRN cough #20 caps 06/15/23 05/27/24 Rx hydralazine 50 mg tablet 50 mg PO TID #90 tabs 06/15/23 05/27/24 Rx terazosin 1 mg capsule 2 mg (2 x 1 mg) PO HS #30 caps 06/15/23 05/27/24 Rx umeclidinium 62.5 mcg/actuation 1 inh inhalation DAILY #90 puffs 07/10/23 05/27/24 Rx blister powder for inhalation (Incruse Ellipta) acetaminophen 650 mg 650 mg PO Q8H PRN Pain 10/21/23 05/27/24 History tablet,extended release albuterol sulfate 90 mcg/actuation 2 puff inhalation Q4H PRN 01/04/24 05/27/24 Rx aerosol inhaler (Ventolin HFA) shortness of breath ,coughing or wheezing #18 grams furosemide 40 mg tablet 20 mg PO BID 05/27/24 05/27/24 History losartan 50 mg PO BID 05/27/24 05/27/24 History Past Med/Surg History Problem List (Updated 05/27/24 @ 11:01 by Brad Johnson MD) [place] (acute kidney injury) Acute hypoxemic respiratory failure Hypoxia (Acute) Pneumonia (Acute) Dyspnea (Acute) Malignant neoplasm of upper lobe, left bronchus or lung Stenosis of abdominal aorta Acute on chronic diastolic heart failure with preserved ejection fraction Acute exacerbation of chronic obstructive pulmonary disease (Acute) Pneumonia (Acute) Respiratory failure (Acute) Hypertensive urgency Pneumonia (Acute) Pleural effusion Atelectasis Acute CHF CKD (chronic kidney disease) stage 2, GFR 60-89 ml/min DVT prophylaxis Acute respiratory failure with hypoxia COPD exacerbation (Acute) Hypoxia (Acute) Dyspnea (Acute) Pneumonia (Acute) Acute hyponatremia (Acute) Chest discomfort Elevated troponin Respiratory failure with hypoxia Hyponatremia Essential hypertension Dyslipidemia Heterozygous factor V Leiden mutation Pulmonary emphysema (Chronic) Medical History Anaphylaxis History of temporomandibular joint disorder GERD (gastroesophageal reflux disease) Bipolar disorder Breast fibroadenoma 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 Pulmonary nodule Arthritis Allergic rhinitis Lumbar stenosis (09/25/14) Surgical History History of D&C History of lumbar surgery H/O breast surgery H/O splenectomy Family History Father Hypertension Mother Lung cancer Other Breast cancer COPD (chronic obstructive pulmonary disease) Diabetes Social History Smoking Status: Former smoker Tobacco Type: Cigarettes Age Quit Using Tobacco: 58; Cigarettes Per Day: 3; Second Hand Exposure: No; Hx Alcohol Use: No Hx Substance Use: No Preferred Language: Burkinan Communication Ability: Effective [place] Required: No Beliefs That Will Affect Care: None marital status: Current Living Situation: Spouse current occupational status: disabled Other Information That Helps Us Care for You: No Feels Safe at Home: Yes Safety Concerns: Feels Safe At This Time Assistive Devices: Nebulizer Review of Systems Review of Systems: As per HPI, all other systems reviewed and negative Physical Exam Physical Exam: GENERAL: Comfortable, flat affect, no respiratory distress SKIN: Pallor, warm HEENT: Bespectacled, pale palpebral conjunctivae, no ptosis, moist buccal mucosa, nasal cannula in place NECK : Supple, no tenderness CHEST : Decreased breath sounds, no tenderness HEART : RRR, no obvious murmurs ABDOMEN: Some distention, nontender EXTREMITIES : No LE swelling/tenderness, left shoulder tenderness, no other conspicuous deformities noted NEUROLOGIC : Coherent, no facial asymmetry, no other gross focality Results & Data Results & Data Vital Signs (Past 12 Hours) Vital Signs Temp Pulse Pulse Resp BP BP Pulse Ox 05/27/24 02:59 63 133/85 05/27/24 02:20 63 20 133/85 92 05/27/24 00:37 67 21 167/74 H 95 05/27/24 00:37 05/27/24 00:34 70 05/27/24 00:25 75 L 05/27/24 00:24 36.6 C 79 32 H 201/74 H 75 L O2 Del Method O2 Flow Rate 05/27/24 02:59 05/27/24 02:20 Nasal Cannula 6 05/27/24 00:37 Nebulizer 15 05/27/24 00:37 Nebulizer 15 05/27/24 00:34 05/27/24 00:25 Oxymask 05/27/24 00:24 Room Air Laboratory Results Laboratory Results WBC 10.81 K/ul (4.8-10.8) H 05/27/24 00:44 RBC 3.51 M/uL (4.20-5.40) L 05/27/24 00:44 Hgb 10.0 g/dl (12.0-16.0) L 05/27/24 00:44 Hct 29.7 % (37.0-47.0) L 05/27/24 00:44 MCV 84.6 fL (80.0-100.0) 05/27/24 00:44 MCH 28.5 pg (25.0-34.0) 05/27/24 00:44 MCHC 33.7 g/dL (32.0-36.0) 05/27/24 00:44 RDW Std Deviation 45.9 fL (36.4-46.3) 05/27/24 00:44 RDW Coeff of Shanna 14.9 % (11.5-14.5) H 05/27/24 00:44 Plt Count 189 K/uL (130-400) 05/27/24 00:44 MPV 10.9 fL (9.4-12.4) 05/27/24 00:44 Immature Gran % (Auto) 0.4 % 05/27/24 00:44 Neut % (Auto) 74.8 % 05/27/24 00:44 Lymph % (Auto) 16.5 % 05/27/24 00:44 [place] % (Auto) 6.1 % 05/27/24 00:44 Eos % (Auto) 1.3 % 05/27/24 00:44 Baso % (Auto) 0.9 % 05/27/24 00:44 Neut # (Auto) 8.09 K/uL (1.40-6.50) H 05/27/24 00:44 Lymph # (Auto) 1.78 K/uL (1.20-3.40) 05/27/24 00:44 [place] # (Auto) 0.66 K/uL (0.11-0.59) H 05/27/24 00:44 Eos # (Auto) 0.14 K/uL (0.00-0.50) 05/27/24 00:44 Baso # (Auto) 0.10 K/uL (0.00-0.20) 05/27/24 00:44 Immature Gran # (Auto) 0.04 K/uL (0.01-0.20) 05/27/24 00:44 Sodium 126 mmol/L (136-145) L 05/27/24 00:44 Potassium 4.3 mmol/L (3.5-5.1) 05/27/24 00:44 Chloride 93 mmol/L (98-107) L 05/27/24 00:44 Carbon Dioxide 23 mmol/L (21-32) 05/27/24 00:44 Anion Gap 10 (3-11) 05/27/24 00:44 BUN 32 mg/dl (6-23) H 05/27/24 00:44 Creatinine 1.77 mg/dl (0.6-1.2) H 05/27/24 00:44 Est Cr Clr Drug Dosing 27.4 ml/min 05/27/24 00:44 Est GFR ( Amer) 36.1 ml/min 05/27/24 00:44 Est GFR (Non-Af Amer) 31.1 ml/min 05/27/24 00:44 BUN/Creatinine Ratio 18.1 (10-20) 05/27/24 00:44 Glucose 129 mg/dl (70-99(Fasting)) H 05/27/24 00:44 Calcium 8.2 mg/dl (8.6-10.3) L 05/27/24 00:44 Magnesium 1.6 mg/dl (1.7-2.4) L 05/27/24 00:44 Total Bilirubin 0.8 mg/dl (0.2-1.0) 05/27/24 00:44 AST 19 U/L (13-39) 05/27/24 00:44 ALT 13 U/L (7-52) 05/27/24 00:44 Alkaline Phosphatase 74 U/L (34-104) 05/27/24 00:44 Troponin I High Sens 14.1 pg/ml (0-14) H 05/27/24 00:44 Total Protein 6.8 gm/dl (6.0-8.3) 05/27/24 00:44 Albumin 4.4 gm/dl (3.4-5.0) 05/27/24 00:44 Globulin 2.4 gm/dl (2.5-4.0) L 05/27/24 00:44 Albumin/Globulin Ratio 1.8 (0.9-2) 05/27/24 00:44 Lipase 36 U/L (11-82) 05/27/24 00:44 Adenovirus (PCR) Not Detected (NotDetected) 05/27/24 01:46 B. pertussis DNA (PCR) Not Detected (NotDetected) 05/27/24 01:46 B.parapertussis DNA PCR Not Detected (NotDetected) 05/27/24 01:46 C. pneumoniae DNA (PCR) Not Detected (NotDetected) 05/27/24 01:46 Coronavirus OC43 (PCR) Not Detected (NotDetected) 05/27/24 01:46 Coronavirus HKU1 (PCR) Not Detected (NotDetected) 05/27/24 01:46 Coronavirus 229E (PCR) Not Detected (NotDetected) 05/27/24 01:46 SARS-CoV-2 (PCR) Not Detected (NotDetected) 05/27/24 01:46 Coronavirus NL63 (PCR) Not Detected (NotDetected) 05/27/24 01:46 Human Metapneumovir PCR Not Detected (NotDetected) 05/27/24 01:46 Influenza Type A (PCR) Not Detected (NotDetected) 05/27/24 01:46 Influenza Type B (PCR) Not Detected (NotDetected) 05/27/24 01:46 M. pneumoniae (PCR) Not Detected (NotDetected) 05/27/24 01:46 Parainfluenza 1 (PCR) Not Detected (NotDetected) 05/27/24 01:46 Parainfluenza 2 (PCR) Not Detected (NotDetected) 05/27/24 01:46 Parainfluenza 3 (PCR) Not Detected (NotDetected) 05/27/24 01:46 Parainfluenza 4 (PCR) Not Detected (NotDetected) 05/27/24 01:46 RSV (PCR) Not Detected (NotDetected) 05/27/24 01:46 Entero/Rhino (PCR) Not Detected (NotDetected) 05/27/24 01:46 CT chest: 1. Moderate right and small left pleural effusions with adjacent compressive atelectasis. Findings are favored to relate to sequela of volume overload. 2. Interstitial changes in the lungs which can be seen with interstitial pulmonary edema. 3. Severe upper lobe prominent centrilobular emphysema. This asymmetrically affects the right lung. 4. Cardiomegaly with pericardial effusion measuring 8 mm. 5. Partially visualized complete occlusion of the infrarenal abdominal aorta with calcifications. Diagnostic Findings EKG as per my interpretation : Rate 70, NSR, LAD, LAFB, no ischemia
[2024-05-27] MEDS: AZITHROMYCIN 500 MG in DEXTROSE 5% 250 ML IV STA (03:24)
[2024-05-27] MEDS ORDERED: oxyCODONE HCL IR 5 MG TAB (IMMEDIATE RELEASE) PO PRN (03:27)
[2024-05-27 03:38] LABS: Thyroid Stimulating Hormone 2.141 uIu/ml (0.300-4.500)
[2024-05-27] MEDS: guaiFENesin 600 MG TABCR PO STA (03:57)
[2024-05-27] MEDS ORDERED: BENZONATATE 100 MG CAPSULE PO PRN (04:51)
[2024-05-27 05:04] LABS: Base Excess ABG -2.4 mEq/L (-9-1.8); HCO3 ABG 23 mmol/L (19-24); Oxygen Saturation ABG 95.4 % (90-95); PCO2 ABG 42 mmHg (35-46); PO2 ABG 74 mmHg (80-95); pH ABG 7.35 (7.35-7.45)
[2024-05-27 05:13] LABS: Basophils # (auto) 0.04 K/uL (0.00-0.20); Basophils % (auto) 0.4 %; Eosinophils # (auto) 0.03 K/uL (0.00-0.50); Eosinophils % (auto) 0.3 %; Hematocrit (blood only) 27.5 % (37.0-47.0); Hemoglobin 9.6 g/dl (12.0-16.0); Immature Granulocytes # (auto) 0.03 K/uL (0.01-0.20); Immature Granulocytes % (auto) 0.3 %; Lymphocytes # (auto) 0.83 K/uL (1.20-3.40); Lymphocytes % (auto) 8.4 %; Mean Corpuscular Hemoglobin 28.9 pg (25.0-34.0); Mean Corpuscular Hgb Conc 34.9 g/dL (32.0-36.0); Mean Corpuscular Volume 82.8 fL (80.0-100.0); Mean Platelet Volume 11.7 fL (9.4-12.4); Monocytes # (auto) 0.16 K/uL (0.11-0.59); Monocytes % (auto) 1.6 %; Neutrophils # (auto) 8.83 K/uL (1.40-6.50); Platelet Count 176 K/uL (130-400); RDW Coefficient of Variation 14.6 % (11.5-14.5); RDW Standard Deviation 44.4 fL (36.4-46.3); Red Blood Count 3.32 M/uL (4.20-5.40); White Blood Count 9.92 K/ul (4.8-10.8)
[2024-05-27 05:18] LABS: Allen Test Pos (Pos)
--- NOTE | 2024-05-27 05:19 | CT Scan Report ---
Exam(s): CT CHEST Without Contrast EXAM: CT Chest Without Intravenous Contrast CLINICAL HISTORY: Reason for exam: cough. TECHNIQUE: Axial computed tomography images of the chest without intravenous contrast. CTDI is 6.38 mGy and DLP is 222.13 mGy-cm. Automated exposure control was utilized for the study. A dose lowering technique was utilized adhering to the principles of ALARA. COMPARISON: No relevant prior studies available. FINDINGS: Lungs: Interstitial changes in the lungs which can be seen with interstitial pulmonary edema. Severe upper lobe prominent centrilobular emphysema. This asymmetrically affects the right lung. Dependent right lower lung airspace disease which may relate to atelectatic changes. Pleural space: Moderate right and small left pleural effusions with adjacent compressive atelectasis. Findings are favored to relate to sequela of volume overload. No pneumothorax. Heart: Cardiomegaly with pericardial effusion measuring 8 mm. No significant coronary artery calcifications. Bones/joints: Degenerative changes in the spine. No acute fracture. No dislocation. Soft tissues: Unremarkable. Vasculature: Atherosclerotic disease. Partially visualized complete occlusion of the infrarenal abdominal aorta with calcifications. No thoracic aortic aneurysm. Lymph nodes: Unremarkable. No enlarged lymph nodes. IMPRESSION: 1. Moderate right and small left pleural effusions with adjacent compressive atelectasis. Findings are favored to relate to sequela of volume overload. 2. Interstitial changes in the lungs which can be seen with interstitial pulmonary edema. 3. Severe upper lobe prominent centrilobular emphysema. This asymmetrically affects the right lung. 4. Cardiomegaly with pericardial effusion measuring 8 mm. 5. Partially visualized complete occlusion of the infrarenal abdominal aorta with calcifications. 6. No other acute findings. 7. Incidental findings as described. Electronically signed by: Boris Sanchez MD 05/27/24 05:18 AM
[2024-05-27 05:38] LABS: BUN Creatinine Ratio 21.7 (10-20); Calcium 8.2 mg/dl (8.6-10.3); Creatinine Clr Calc Pharmacy 30.1 ml/min; Est GFR (African American) 40.4 ml/min; Est GFR (Non-African American) 34.9 ml/min; Magnesium 2.2 mg/dl (1.7-2.4); Potassium 4.3 mmol/L (3.5-5.1)
[2024-05-27 05:54] LABS: Troponin I High Sensitivity 33.6 pg/ml (0-14)
[2024-05-27] MEDS: ALBUT/IPRATROP 3MG/0.5MG NEB 3 ML VIAL NEB SCH (06:50)
--- NOTE | 2024-05-27 06:58 | XRay Report ---
XR shoulder LT min 2V routine CLINICAL HISTORY: Trauma. COMPARISON: Chest CT November 30, 2023. FINDINGS: Alignment of the left shoulder is anatomic. There are no fractures. There are no osseous l esions. Postoperative findings within the left hemithorax are incidentally noted. IMPRESSION: No fracture or dislocation within the left shoulder. ACT 112: Negative or not required by law. Electronically signed by: Kwame Weir M.D. 05/27/2024 6:57 AM
--- NOTE | 2024-05-27 07:21 | XRay Report ---
XR chest 1V portable HISTORY: Shortness of breath. COMPARISON: Chest 12/05/2023. FINDINGS: No pneumothorax. The heart remains mildly enlarged. Small bilateral pleural effusions and p atchy bibasilar densities most pronounced on the right. This has progressed in the interval and may r epresent a pneumonia. Interstitial thickening has progressed and suggest mild interstitial pulmonary edema. Emphysema again noted. IMPRESSION: 1. Interval progression of the mild interstitial pulmonary edema and small bilateral pleural effusion s. 2. Bibasilar densities have also progressed. This could represent atelectasis from the pleural effusi ons or a pneumonitis. ACT 112: Negative or not required by law. Electronically signed by: Bhavik Lowe M.D. 05/27/2024 7:19 AM
[2024-05-27] MEDS: carvediloL 12.5 MG TAB PO SCH (07:37)
[2024-05-27] MEDS: FUROSEMIDE 40 MG/4 ML VIAL IV ONE (07:37)
[2024-05-27] MEDS: ALBUMIN 25% 12.5 GM/50 ML VIAL IV ONE (07:37)
[2024-05-27 08:24] LABS: Estimated Average Glucose 105 mg/dl; Hemoglobin A1C 5.3 % (4.5-5.6)
[2024-05-27] MEDS ORDERED: carvediloL 25 MG TAB PO SCH (09:00)
[2024-05-27] MEDS ORDERED: predniSONE 20 MG TAB PO SCH (09:00)
[2024-05-27] MEDS: ASPIRIN 81 MG ECTAB PO SCH (09:12)
[2024-05-27] MEDS: CETIRIZINE HCL 10 MG TABLET PO SCH (09:12)
[2024-05-27] MEDS: hydrALAZINE TAB 50 MG TAB PO SCH (09:12)
[2024-05-27] MEDS: ARIPiprazole 5 MG TAB PO SCH (09:12)
[2024-05-27] MEDS: PARoxetine HCL 20 MG TAB PO SCH (09:12)
[2024-05-27] MEDS: amLODIPine BESYLATE 5 MG TAB PO SCH (09:12)
--- OUTSIDE RECORDS SUMMARY | 2024-05-27 09:17 | External Medical Summary | Summary of Care ---
Author Name Unknown Organization [facility] Address [address] [place] [address] Phone [phone] Care Team Providers Care Yarn Wrapper Name Role Phone Stefany Benitez MD Primary Care Provid er Reason for Visit * Reason Onset Date Comments Order Request 05/08/2024 TYPE AND SCREEN Encounter Details Date Type Department Care Team (Late st Contact Info) Description 05/08/2024 Telephone Vascular Surg [facility] [address] [place] [address] Sam Fuller PA-C [address] [place] [address] Order Request (TYPE AND SCREEN) Allergies Active Allergy Reactions Criticality Noted Date Comments Amoxicillin-Pot Clavulanate Nausea/vomiting Low 02/28/2012 Umeclidinium-Vilanterol 01/22/2017 Body swelling Moxifloxacin Hcl In Nacl Hives Low 12/13/2010 Sulfa Antibiotics Hives Low 04/17/2005 Erythromycin Base Nausea/vomiting Low 01/08/1998 Morphine And Codeine Rash Low 07/22/2012 Tolerated Percocet Neomycin Other (Please comment) Low 06/16/1998 local reaction to eardrops Metaxalone Unknown 09/01/2015 Budesonide-Formoterol Fumarate 01/22/2017 Increased wheezing and swelling Tetracycline Nausea/vomiting Low 01/08/1998 Sertraline Hcl 02/13/2018 Diarrhea documented as of this encounter (statuses as of 05/08/2024) Medications Medication Sig Dispensed Refills Start Date End Date Status albuterol (PROVENTIL HFA) 108 (90 BASE) MCG/ACT inhaler Inhale 2 Puffs by mouth every 6 hours as needed. Active albuterol sulfate (PROVENTIL) (2.5 MG/3ML) 0.083% nebulizer solution Inhale 1 Vial via nebulizer every 4 hours as needed for Wheezing. 120 Vial 11 07/05/2016 Active clonazePAM (KLONOPIN) 0.5 MG TabletIndications:Dep ression with anxiety Take 1 Tab by mouth 2 times a day as needed for Anxiety. 60 Tab 08/20/2017 Active Aspirin 81 MG Tablet Take 1 Tab by mouth daily. 34 Tab 5 01/18/2018 Active ARIPiprazole (ABILIFY) 5 MG Tablet Take 1 Tab by mouth daily. 30 Tab 01/08/2020 Active Additional Information Patient taking differently:5 mg OralHS, Reported on 04/08/2024 Cetirizine HCl 10 MG Capsule Take 1 Capsule by mouth in the morning. Active Zoster Vac Recomb Adjuvanted 50 MCG/0.5ML Intramuscular Suspension Reconstituted (Shingrix)Indications :Need for vaccination for zoster Inject 0.5 mL into a large muscle now and repeat dose in 60 to 180 days 1 Each 1 04/21/2021 Active Acetaminophen ER 650 MG Oral Tablet Extended Release Take 1 Tablet by mouth every 8 hours as needed. Active PARoxetine HCl 40 MG Oral Tablet (pAXil) Take 1 Tablet by mouth in the morning. Active Umeclidinium Flow[place] 62.5 MCG/ACT Inhalation Aerosol Powder Breath Activated (INCRUSE ellipta) Inhale 1 Puff by mouth in the morning. Active amLODIPine Besylate 10 MG Oral Tablet (Norvasc)Indications: HTN, goal below 140/90 TAKE 1 TABLET BY MOUTH ONCE DAILY 90 Tablet 3 06/22/2023 Active Additional Information Patient taking differently: Daily(AM), Reported on 04/08/2024 hydrALAZINE HCl 50 MG Oral Tablet (Apresoline) Take 1 Tablet by mouth in the morning and 1 Tablet at noon and 1 Tablet before bedtime. 252 Tablet 3 07/04/2023 Active Atorvastatin Calcium 20 MG Oral Tablet (Lipitor)Indications: Dyslipidemia, goal LDL below 70 TAKE 1 TABLET BY MOUTH ONCE DAILY 90 Tablet 3 07/30/2023 Active Additional Information Patient taking differently: Daily(AM), Reported on 04/08/2024 Cephalexin 500 MG Oral Capsule Take 4 caps 1 hour prior to dental appointment. 4 Capsule 08/21/2023 Active Alendronate Sodium 70 MG Oral Tablet [...] BEFORE BEDTIME 180 Tablet 3 10/03/2023 Active Ipratropium-Albuterol 0.5-2.5 (3) MG/3ML Inhalation Solution (Duoneb) Inhale 3 mL by mouth 4 times a day as needed for Dyspnea, Wheezing or Cough. Active D3-50 1.25 MG (15644 UT) Oral Capsule (Cholecalciferol)Maureen cations:Age-related osteoporosis without current pathological fracture,Hypovitamino sis D Take 1 Capsule by mouth once a week. 12 Capsule 12/18/2023 Active Entresto 97-103 MG Oral Tablet (sacubitril-valsartan 97-103 mg per tab) Take 1 Tablet by mouth in the morning and 1 Tablet before bedtime. 180 Tablet 3 01/29/2024 Active Furosemide 40 MG Oral Tablet (Lasix) Take 1 Tablet by mouth in the morning. 90 Tablet 3 01/29/2024 Active Terazosin HCl 2 MG Oral Capsule Take 2 Capsules by mouth at bedtime. 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 Heterozygous factor V Leiden mutation 09/30/2014 Fibroadenoma of breast 03/22/2012 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 Condyloma acuminatum Moderate COPD (chronic obstructive pulmonary dis ease) Overview: Dr Peoples Gastroesophageal reflux disease without esophagi tis Depression with anxiety documented as of this encounter (statuses as of 05/08/2024) Resolved Problems Problem Noted Date Diagnosed Date [...] as of this encounter (statuses as of 05/08/2024) Immunizations Name Administration Dates Next Due COVID-19 mRNA, LNP-s, No Pre serve, 2-Dose Series (Moderna) 01/20/2021,12/23/2020 Pneumococcal Conjugate Vacci ne, 20-valent ([id number]) 05/01/2023 Pneumococcal Polysaccharide PPV23 (Pneumovax) 10/09/2015 Seasonal [...] Used Date Smoking Tobacco: Former Cigarettes 1 39.6 1 984 - 04/24/2023 Passive Smoke Exposure: [...] money to get more. Never true 09/27/2023 Childcare Answer Date Recorded Do you feel overwhelmed with taking care of a child, family member or friend? No 09/27/2023 Does your family need help f inding childcare? (Household - for ages 0-17 years) Not on file 09/27/2023 Clothing Answer Date Recorded Have you been unable to get clothing when it was really needed? No 09/27/2023 Is your family able to get c lothes or diapers when needed? (Household - for ages 0-17 years) Not on file 09/27/2023 Personal Safety Answer Date Recorded Do you feel unsafe or have concerns for your saf ety? No 09/27/2023 Do you have concerns for you r family's safety? (Household - for ages 0-17 years) Not on file 09/27/2023 Utilities Answer Date Recorded Do you have trouble paying y our heating, water, or electric bill? No 09/27/2023 Is your family able to pay t he heat, water, or electric bill? (Household - for ages 0-17 years) Not on file 09/27/2023 Does your family have access to good internet? (Household - for ages 0-17 years) Not on file 09/27/2023 Employment Status Answer Date Recorded Are you unemployed or without regular income? No 09/27/2023 Does the household have a re gular source of income? (Household - for ages 0-17 years) Not on file 09/27/2023 Social Connections Answer Date Recorded How often do you feel lonely or isolated from those around you? Sometimes 09/27/2023 Financial Resource Strain Answer Date R ecorded Do you have any trouble payi ng for your medications, or do you think you might in the future? No 09/27/2023 Does your family have troubl e paying for medicine? (Household - for ages 0-17 years) Not on file 09/27/2023 Transportation Needs Answer Date Record ed READ ONLY Do you have troubl e getting a ride to medical visits or work? Never True 09/27/2023 Does your family have a hard time getting a ride to doctors visits? (Household - for ages 0-17 years) Not on file 09/27/2023 Has lack of transportation k ept you from medical appointments, meetings, work, or from getting things needed for daily living? Check all that apply. (Adult - for ages 18 years and over) Not on file 09/27/2023 Do you (or your family) have trouble finding or paying for a ride (transportation)? (Household - for ages 0-17 years) Not on file 09/27/2023 Housing Stability Answer Date Recorded Do you currently live in a s helter or have no steady place to sleep at night? No 09/27/2023 READ ONLY Do you think you a re at risk of becoming homeless? No 09/27/2023 Does your family worry about paying for your home or becoming homeless? (Household - for ages 0-17 years) Not on file 1 11/28/2022 Are you homeless or worried that you might be in the future? (Adult - for ages 18 years and over) Not on file Are you (or your family) danii eless or worried that you might be in the future? (Household - for ages 0-17 years) Not on file Food Insecurity Answer Date Recorded Do you need food for this week? No 09/27/2023 Are you able to get enough f ood for your family? (Household - for ages 0-17 years) Not on file 09/27/2023 Does your family need food t his week? (Household - for ages 0-17 years) Not on file 09/27/2023 Do you always have enough fo od for your family? (Household - for ages 0-17 years) Not on file 09/27/2023 Sex and Gender Information Value Date [...] encounter Miscellaneous Notes * Telephone Encounter - Anthony Caicedo OSA - 05/08/2024 11:01 AM EDT Keshawn received [facility] Need new TYPE and SCREEN lab order. They indicate it was drawn to soon See below PLEASE REDRAW NO MORE THEN 30 DAYS BEFORE SURGERY PER OUR ESTABLISHED PROCEDURE TKS YOLIS Troy documented in this encounter Plan of Treatment Upcoming Encounters Date Type Department Care Team (Late st Contact Info) Description 06/13/2024 7:30 AM EDT Imaging Vascular Lab, [facility] [address] [facility] [address] [place] [address] 06/13/2024 8:30 AM EDT Imaging Vascular Lab, [facility] [address] [facility] [place] [address] [place] [address] 06/13/2024 9:30 AM EDT Imaging Vascular Lab, [facility] [address] [facility] [address] [facility] [place] [address] 06/13/2024 10:30 AM EDT Imaging Vascular Lab, [facility] [address] [facility] [address] [facility] [place] [address] 08/04/2024 10:00 AM EST Office Visit Gynecology/Obstetrics [facility] [address] [facility] [place] [address] Nathalia Guerrero PA-C [address] [place] [address] 08/06/2024 11:30 AM EST Office Visit Vascular Surgery, [facility] [address] [facility] [place] [address] Sanjiv Wolf MD [address] [place] [address] 09/15/2024 10:40 AM EST Office Visit Family [facility] [address] [place] [address] Stefany Benitez MD [address] [place] [address] 10/14/2024 9:30 AM EST Office Visit Cardiology, [facility] [address] [facility] [place] [address] Daniel Cuevas DO [address] [place] [address] 12/02/2024 2:40 PM EST Office Visit Nephrology, [facility] [address] [place] [address] Brad Johnson MD [address] [place] [address] Scheduled Procedures Name Priority Associated Diagnoses Date/Ti me COLONOSCOPY FLEXIBLE PROXIMA L DIAGNOSTIC Recall Encounter for screening colonoscopy Health Maintenance Due Date Last Done Comments Alpha-1 Antitrypsin 1984 Hepatitis C Screening 1984 Hepatitis B Vaccine (1 of 3 - 19+ 3-dose series) 1985 Cologuard 2011 Fecal Occult Blood Test 2011 Sigmoidoscopy 2011 Zoster Vaccines (1 of 2) 2016 DTaP,Tdap,and Td Vaccines (3 - Td or Tdap) 10/13/2019 10/13/2009, 07/17/2002, 02/28/1979 COVID-19 Vaccine (3 - 2022- season) 2023 01/20/2021, 12/23/2020 Influenza Vaccine (FLU shot) (#1) 2024 06/19/2023, 07/21/2022, 07/03/2020, Additional history exists Depression Monitoring 09/27/2024 09/27/2023 Albumin/Creatinine Ratio 10/13/2024 10/13/2023, 08/0 01/2023 GFR 11/07/2024 05/07/2024, 07/0 11/2023, 12/13/2023, Additional history exists CKD PHOS USE SMARTSET 66360 11/24/2024 11/24/2023, 0 10/13/2023 Mammogram 04/07/2025 04/07/2024, 07/0 05/2024, 04/27/2023, Additional history exists O2 ASSESSMENT COMPLETED IN PAST YEAR FOR COPD 04/08/2025 04/08/2024 CKD HGB USE SMARTSET 95610 05/07/202505/07, 05/07/2024, 09/15/2023, Additional history exists DXA Scan 06/05/2025 06/05/2023, 06/05/2023 Pap Smear 05/01/2026 05/01/2023, 04/01, 02/06/2017, [...] D LEVEL ONCE IN A LIFETIME-USE SMARTSET# [id number] Completed 11/14/2023, 05/05/2023, 08/16/2017, Additional history exists HPV (Gardasil) Vaccine Aged Out No lo nger eligible based on patient's age to complete this topic MENINGOCOCCAL (MENACTRA/MENVEO) Aged Out No longer eligible based on patient's age to complete this topic documented as of this encounter Medical Devices Not on filedocumented as of this encounter Advance Directives * Full Code (Latest Code Status on File) Date Activated Date Inactivated Comments 09/11/2015 11:44 AM 09/16/2015 7:31 PM This orde r reflects the patients wishes and were consensually agreed upon. Question Answer Comments Discussion of Advance Directives occurred with: Not Discussed Does the patient have a Living Will? No Does the patient have Health Care Power of Attor jazlyn? No Care Teams Yarn Wrapper Relationship Specialty Start Date End Date Stefany Benitez MD [address] [place] [facility] [address] PCP - General Family Medicine 04/25/22 documented as of this encounter
--- OUTSIDE RECORDS SUMMARY | 2024-05-27 09:17 | External Medical Summary | Summary of Care ---
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 transferring scripts to [facility] pharmacy with patient and / or family. Katt Leslie CMA documented in this encounter Miscellaneous Notes * Addendum Note - Roma Fuller PA-C - 05/08/2024 2:46 PM EDTAddended by: ROMA FULLER on: 05/08/2024 02:46 PM Modules accepted: Orders documented in this encounter Plan of Treatment Upcoming Encounters Date Type Department Care Team (Late st Contact Info) Description 06/13/2024 7:30 AM EDT Imaging Vascular Lab, [address] 132 [facility] [place] [address] 06/13/2024 8:30 AM EDT Imaging Vascular Lab, [address] 132 [facility] [place] [address] 06/13/2024 9:30 AM EDT Imaging Vascular Lab, [address], [place] 132 [facility] [place] [address] 06/13/2024 10:30 AM EDT Imaging Vascular Lab, [address], [place] 132 [facility] [place] [address] 06/27/2024 Hospital Encounter [facility], OPERATING ROOM [facility], [place] [address] [facility] [address] Sanjiv Wolf MD [address] [facility] [address] 08/04/2024 10:00 AM EST Office Visit Gynecology[facility] 132 [facility] [place] [address] Nathalia Guerrero PA-C 132 [facility] [place] [address] 08/06/2024 11:30 AM EST Office Visit Vascular Surgery, [facility] [address] [facility] [place] [address] Sanjiv Wolf MD [address] [place] [address] 09/15/2024 10:40 AM EST Office Visit [facility] [address] [place] [phone] Stefany Benitez MD [address] [place] [address] 10/14/2024 9:30 AM EST Office Visit Cardiology, [facility] [place] [address] Daniel Cuevas DO [facility] [place] [address] 12/02/2024 2:40 PM EST Office Visit Nephrology, [facility] 200 [facility] [place], [place] [address] Brad Johnson MD [address] [facility] [place] [address] Scheduled Orders Name Type Priority Associated Diagnoses Orde r Schedule PREPARE PACKED RED BLOOD CELLS Blood Bank - Prepare Product Routine Abdominal aortic stenosis PVD (peripheral vascular disease) (HCC) Pre-op testing Ordered: 05/07/2024 [facility] AORTIC DUPLEX EVAL-COMPLETE Medical Imaging Routine Abdominal aortic stenosis PVD (peripheral vascular disease) (HCC) Pre-op testing Ordered: 05/07/2024 [facility] RENAL VASCULAR SCAN-COMPLETE Medical Imaging Routine Abdominal aortic stenosis PVD (peripheral vascular disease) (HCC) Pre-op testing Ordered: 05/07/2024 [facility] MESENTERIC/CELIAC ART-COMP Medical Imaging Routine Abdominal aortic stenosis PVD (peripheral vascular disease) (HCC) Pre-op testing Ordered: 05/07/2024 V[facility] ANKLE BRACHIAL INDICES WITHOUT PPG (PAD) Medical Imaging Routine Abdominal aortic stenosis PVD (peripheral vascular disease) (HCC) Pre-op testing Ordered: 05/07/2024 Scheduled Procedures Name Priority Associated Diagnoses Date/Ti me ABDOMINAL AORTA ENDARTERECTOMY Abdominal aortic stenosis PVD (peripheral vascular disease) (HCC) Pre-op testing COLONOSCOPY FLEXIBLE PROXIMA L DIAGNOSTIC Recall Encounter [...] Tdap) 10/13/2019 10/13/2009, 07/17/2002, 02/28/1979 COVID-19 Vaccine ( - 2022- season) 2023 01/20/2021, 12/23/2020 Influenza Vaccine (FLU shot) (#1) 2024 06/19/2023, 07/21/2022, 07/03/2020, Additional history exists Depression Monitoring 09/27/2024 09/27/2023 Albumin/Creatinine Ratio 10/13/2024 10/13/2023, 08/0 01/2023 GFR 11/07/2024 05/07/2024, 07/0 11/2023, 12/13/2023, Additional history exists CKD PHOS USE SMARTSET 62550 11/24/2024 11/24/2023, 0 10/13/2023 Mammogram 04/07/2025 04/07/2024, 07/0 05/2024, 04/27/2023, Additional history exists O2 ASSESSMENT COMPLETED IN PAST YEAR FOR COPD 04/08/2025 04/08/2024 CKD HGB USE SMARTSET 99774 05/07/202505/07, 05/07/2024, 09/15/2023, Additional history exists DXA [...] D LEVEL ONCE IN A LIFETIME-USE SMARTSET# 93933 Completed 11/14/2023, 05/05/2023, 08/16/2017, Additional history exists [...] Date/Time Associated Diagnosis Comments DIFFERENTIAL, AUTOMATED Routine 05/07/2024 3:48 PM EDT Abdominal aortic stenosis PVD (peripheral vascular disease) (HCC) Pre-op testing CBC Routine 05/07/2024 3:48 PM EDT Abdominal aortic stenosis PVD (peripheral vascular disease) (HCC) Pre-op testing CBC Routine 05/07/2024 3:48 PM EDT Abdominal aortic stenosis PVD (peripheral vascular disease) (HCC) Pre-op testing documented in this encounter Results * DIFFERENTIAL, AUTOMATED (05/07/2024 3:48 PM EDT) WBC 4.61 4.00 - 10.80 K/uL 05/07/2024 10:24 PM EDT LABORATORY [facility] Neutrophils % 54.8 40.0 - 75.0 % 05/07/2024 10:24 PM EDT LABORATORY [facility] Lymphocytes % 31.5 18.0 - 42.0 % 05/07/2024 10:24 PM EDT LAB[facility]ATORY [facility] Monocytes % 9.3 1.0 - 11.0 % 05/07/2024 10:24 PM EDT LABORATORY [facility] Eosinophils % 2.0 0.0 - 6.0 % 05/07/2024 10:24 PM EDT LAB[facility]ATORY [facility] Basophils % 2.0 0.0 - 2.0 % 05/07/2024 10:24 PM EDT LABORATORY [facility] Immature Granulocytes % 0.4 0.0 - 2.0 % 05/07/2024 10:24 PM EDT LABORATORY [facility] Absolute Neutrophils 2.53 1.80 - 7.70 K/uL 05/07/2024 10:24 PM EDT LABORATORY [facility] Absolute Lymphocytes 1.45 1.00 - 4.80 K/ul 05/07/2024 10:24 PM EDT LABORATORY [facility] Absolute Monocytes 0.43 0.00 - 1.10 K/uL 05/07/2024 10:24 PM EDT LAB[facility]ATORY [facility] Absolute Eosinophils 0.09 0.00 - 0.70 K/uL 05/07/2024 10:24 PM EDT LABORATORY [facility] Absolute Basophils 0.09 0.00 - 0.20 K/uL 05/07/2024 10:24 PM EDT LABORATORY [facility] Absolute Immature Granulocytes 0.02 0.00 - 0.20 K/uL 05/07/2024 10:24 PM EDT LABORATORY [facility] Blood Venous blood specimen / Unknown Venipuncture / Unknown 05/07/2024 3:48 PM EDT 05/07/2024 3:48 PM EDT Roma Fuller PA-C LAB BLOOD ORDERA BLES LABORATORY C [address] [place] [address] * (ABNORMAL) CBC (05/07/2024 3:48 PM EDT) [facility] WBC 4.61 4.00 - 10.80 K/uL 05/07/2024 10:24 PM EDT LABORATORY [facility] RBC 3.95 3.85 - 5.15 M/uL 05/07/2024 10:24 PM EDT LABORATORY [facility] HGB 11.5(L) 12.0 - 15.3 g/dL 05/07/2024 10:24 PM EDT LABOR[facility] HCT 35.2(L) 36.0 - 45.2 % 05/07/2024 10:24 PM EDT LABORATORY [facility] MCV 89.1 81.5 - 97.5 fL 05/07/2024 10:24 PM EDT LAB[facility]ATORY [facility] MCH 29.1 27.0 - 34.0 pg 05/07/2024 10:24 PM EDT LABORATORY [facility] MCHC 32.7 32.0 - 36.0 g/dL 05/07/2024 10:24 PM EDT LABORATORY [facility] RDW 15.6 11.5 - 15.5 % 05/07/2024 10:24 PM EDT LABORATORY [facility] PLT 212 140 - 400 K/uL 05/07/2024 10:24 PM EDT LAB[facility]AT[facility] MPV 11.5 6.6 - 11.1 fL 05/07/2024 10:24 PM EDT LABORATORY [facility] nRBCs 0 <=0 /100 WBCs 05/07/2024 10:24 PM EDT LAB[facility]ATORY [facility] Blood Venous blood specimen / Unknown Venipuncture / Unknown 05/07/2024 3:48 PM EDT 05/07/2024 3:48 PM EDT Roma Fuller PA-C LAB BLOOD ORDERA BLES LABORATORY GM [address] [place] [address] documented in this encounter Visit Diagnoses Diagnosis Abdominal aortic stenosis- Primary Congenital atresia and stenosis of aorta PVD (peripheral vascular disease) (HCC) Peripheral vascular disease, unspecified Pre-op testing Preoperative examination, unspecified Abdominal aortic stenosis- Primary Congenital atresia and stenosis of aorta Pre-op testing Preoperative examination, unspecified Abdominal aortic stenosis Congenital atresia and stenosis of aorta PVD (peripheral vascular disease) (HCC) Peripheral vascular disease, unspecified PVD (peripheral vascular disease) (HCC) Peripheral vascular disease, unspecified Pre-op testing Preoperative examination, unspecified documented in this encounter Advance Directives * Full Code [...] Power of Attor jazlyn? No Care Teams Patient Account Representative Relationship Specialty Start Date End Date Stefany Benitez MD [address] [facility] [place] [address] PCP - General Family Medicine 04/25/22 documented as of this encounter
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
--- OUTSIDE RECORDS SUMMARY | 2024-05-27 09:18 | External Medical Summary | Summary of Care ---
Author Name Unknown Organization [facility] Address [address] [place] [address] Phone [phone] Care Team Providers Care Real Estate Valuer Name Role Phone Stefany Benitez MD Primary Care Provid er Reason for Visit * Reason Comments Follow Up Encounter Details Date Type Department Care Team (Late st Contact Info) Description 05/07/2024 2:10 PM EDT Office Visit Vascular Surgery, [facility] [address] [facility] [place] [address] Sanjiv Wolf MD [address] [place] [address] Abdominal aortic stenosis*; PVD (peripheral vascular disease) ([facility]); Pre-op testing Allergies Active Allergy Reactions Criticality [...] as of this encounter (statuses as of 05/07/2024) Medications Medication Sig Dispensed Refills Start Date [...] by mouth in the morning. Active Umeclidinium [place] 62.5 MCG/ACT Inhalation Aerosol Powder Breath Activated [...] Wheezing or Cough. 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 Condyloma acuminatum Moderate COPD (chronic obstructive pulmonary dis ease) Overview: Dr Peoples Gastroesophageal reflux disease without esophagi tis Depression with anxiety documented as of this encounter (statuses as of 05/07/2024) Resolved Problems Problem Noted Date Diagnosed Date [...] as of this encounter (statuses as of 05/07/2024) Immunizations Name Administration Dates Next Due COVID-19 mRNA, LNP-s, No Pre serve, 2-Dose Series (Moderna) 01/20/2021,12/23/2020 Pneumococcal Conjugate Vacci ne, 20-valent (Eazldio16) 05/01/2023 Pneumococcal Polysaccharide PPV23 (Pneumovax) 10/09/2015 Seasonal [...] CKD III, HTN, GERD, Heterozygous for prothrombin [id number] mutation, Dyslipidemia, Depression/Bipolar and known abd aortic stenosis Pt admitted to [facility] 12/02-12/07/[address] abd/pelvis confirmed [...] weak since her November 2023 admission to [facility] She had cared for her mother at home who is under hospice care. Mother passed December of this yr, 2023 Current Outpatient Medications Medication Sig Dispense [...] Tablet by mouth in the morning. Umeclidinium [place] 62.5 MCG/ACT Inhalation Aerosol Powder Breath Activated [...] MOUTH IN THE MORNING AND ONE BEFORE [id number] Tablet 3 Ipratropium-Albuterol 0.5-2.5 (3) MG/3ML Inhalation Solution (Duoneb) Inhale 3 mL by mouth 4 times a day as needed for Dyspnea, Wheezing or Cough. D3-50 1.25 MG (73060 UT) Oral Capsule (Cholecalciferol) Take 1 Capsule [...] ectasia Fibroadenoma of breast Heterozygous for prothrombin Y54432S mutation (HCC) Heterozygous factor V Leiden mutation [...] Leiden mutation (HCC) 09/30/2014 Heterozygous for prothrombin R56073L mutation (HCC) 09/30/2014 Hypertension goal BP (blood pressure) < 140/90 06/01/2021 Pt stated she recently started on HTN meds. INFORMATION 2000 factor V Leiden, prothrombin and MTHFR deficiency Malignant neoplasm of upper lobe of left lung (HCC) 09/10/2015 Mammary duct ectasia Mitral valve disorder 03/1996 mild prolapse, SBE prophylaxis Moderate COPD (chronic obstructive pulmonary disease) (HCC) Dr Peoples Open wound of forehead with complication 1981 large cut on forehead from diving into a stream and hitting a rock Osteoarthrosis Jaw Temporomandibular joint disorders, unspecified Past Surgical History: Procedure Laterality Date BIOPSY OF BREAST, OPEN Left 10/22/2006 Benign- Excision of left breast mass- [facility] - Dr. Villar BIOPSY OF BREAST, OPEN Left 01/16/2012 partial ductal excision; fibrocystic changes BRONCHOSCOPY W/ FLUORO + COMPUTER NAVIGATOR 07/26/2015 Dr. Noel at [facility] COLONOSCOPY, DIAGNOSTIC (RECTUM) 08/03/2016 normal, repeat 10 yrs/COLONOSCOPY FLEXIBLE PROXIMAL DIAGNOSTIC performed by Yesika Jarrett DO at ENDOSCOPY [facility] CRYOCAUTERY OF CERVIX DILATION AND CURETTAGE (D&C) 08/22/2004 for missed , Dr Conrad INFORMATION remove/repair left face silicone LUMBAR SPINE FUSION W/BONE GRAFT 08/2014 [facility] LYMPHADENECTOMY VIA THORACOSCOPY Left 09/10/2015 THORACOSCOPY WITH LYMPHADENECTOMY performed by Boris Miller MD at [facility] MAMMOGRAM BREAST NEEDLE BIOPSY CORE LEFT Left 02/11/2020 Fibroadenoma PUNCTURE DRAINAGE BREAST CYST Left 1994 abscess of left breast opened and drained REMOVAL OF JAW JOINT CARTILAGE 1985 three different operations at [facility] SINGLE LOBECTOMY, LUNG Left 09/10/2015 REMOVAL SINGLE LOBE LUNG performed by Boris Miller MD at [facility] THORACOSCOPY W/WEDGE/ANATOMIC RESECTION Left 09/10/2015 THORACOSCOPY W/WEDGE/ANATOMIC RESECTION performed by Boris Miller MD at [facility] US GUIDED BREAST BIOPSY RIGHT Right 05/15/2023 [...] animals transfusions: 1986 exercise: walking diet: no hinduism/judaism: zoroastrianism marital status: /engaged children: 1 gc: 0 [...] Stability Do you currently live in a correction or have no steady place to sleep [...] pain, shortness of breath, palpitations, angina or [place] Neurological: Negative for stroke, TIA, amaurosis fugax [...] prox abd aorta, chronic, dating back to 2016 Cardiology Studies: Pharmacologic Nuclear Stress Report 03/05/2024: [...] 01/27/2015 12:00 AM LDL CHOLESTEROL (CALCULATED) - [facility] 61 09/15/2023 08:15 AM LDL CHOLESTEROL (CALCULATED) - [facility] 74 09/28/2020 08:19 AM LDL CHOLESTEROL (DIRECT MEASURE) - [facility] NOT APPLICABLE 09/03/2019 08:30 AM Lab Results Component Value Date/Time HEMOGLOBIN A1C - [facility] 5.2 09/15/2023 08:15 AM HEMOGLOBIN A1C - [...] on 5 meds GERD Heterozygous for prothrombin D35521B mutation Dyslipidemia Depression/Bipolar Seen by Dr. Cuevas 12/24/23 for post hospital follow-up, hprxyrckt-gs-bnbkfmi hypertension, heart failure with preserved ejection fraction, [...] I had phone conversation with Dr. Alec Ruff, Pulmonary/Critical Care physician, @ [facility] ([phone]). He is the audio video repairer for Ms. Carpenter. I relayed to Dr. [...] seen and examined with Sanjiv Wolf MD. PEYTON PérezC Section of Vascular [place] [address] [phone] I have reviewed the advanced practitioner's documentation [...] like to proceed with the surgery. The [facility] Abdominal Vascular Surgery booklet was given to the patient. Sanjiv Wolf MD Section of Vascular [place] [address] [phone] documented in this encounter Nursing Notes * Katt Leslie CMA - 05/07/2024 2:08 PM EDT Reviewed the option of transferring scripts to [facility] pharmacy with patient and / or family. Katt Leslie CMA documented in this encounter Plan of Treatment Upcoming Encounters Date Type Department Care Team (Late st Contact Info) Description 07/30/2024 10:30 AM EDT Imaging Vascular Lab, [address], [place] 132 [facility] [place] [address] 07/31/2024 8:30 AM EDT Imaging Vascular Lab, [address] 132 [facility] [place] [address] 07/31/2024 9:30 AM EDT Imaging Vascular Lab, [address] 132 [facility] [place] [address] 08/04/2024 10:00 AM EST Office Visit Gynecology/Obstetrics [facility] 132 [facility] [place] [address] Nathalia Guerrero PA-C 132 [facility] [place] [address] 08/06/2024 11:30 AM EST Office Visit Vascular Surgery, [facility] 132 [facility] [place] [address] Sanjiv Wolf MD [address] [place] [address] 09/15/2024 10:40 AM EST Office Visit Family [facility] [address] [place] [phone] Stefany Benitez MD [address] [place] [address] 10/14/2024 9:30 AM EST Office Visit Cardiology, [facility] 132 [facility] [place] [address] Daniel Cuevas DO 132 [facility] [place] [address] 12/02/2024 2:40 PM EST Office Visit Nephrology, [place] 200 [facility] [place], [place] [address] Brad Johnson MD 200 [facility] [place] [address] Scheduled Orders Name Type Priority Associated Diagnoses Order Schedule CBC WITH WBC DIFFERENTIAL Lab Routine Abdominal aortic stenosis PVD (peripheral vascular disease) (HCC) Pre-op testing Ordered: 05/07/2024 BASIC METABOLIC PANEL Lab Routine Abdominal aortic stenosis PVD (peripheral vascular disease) (HCC) Pre-op testing Ordered: 05/07/2024 PREPARE PACKED RED BLOOD CELLS Blood Bank - Prepare Product Routine Abdominal aortic stenosis PVD (peripheral vascular disease) (HCC) Pre-op testing Ordered: 05/07/2024 TYPE AND SCREEN Lab Routine Abdominal aortic stenosis PVD (peripheral vascular disease) (HCC) Pre-op testing 1 Occurrences starting 05/07/2024 until 08/07/2024 VASC AORTIC DUPLEX EVAL-COMPLETE Medical Imaging Routine Abdominal aortic stenosis PVD (peripheral vascular disease) (HCC) Pre-op testing Ordered: 05/07/2024 VASC RENAL VASCULAR SCAN-COMPLETE Medical Imaging Routine Abdominal aortic stenosis PVD (peripheral vascular disease) (HCC) Pre-op testing Ordered: 05/07/2024 VASC MESENTERIC/CELIAC ART-COMP [...] 10/13/2009, 07/17/2002, 02/28/1979 COVID-19 Vaccine (3 - 2023-24 season) 2023 01/20/2021, 12/23/2020 Influenza Vaccine (FLU shot) (#1) 2024 06/19/2023, 07/21/2022, 07/03/2020, Additional history exists CKD HGB USE SMARTSET 56577 09/15/202409/15, 09/15/2023, 06/19/2023, Additional history exists Depression Monitoring 09/27/2024 09/27/2023 GFR 10/03/2024 04/02/2024, 11/29, 11/24/2023, Additional history exists Albumin/Creatinine Ratio 10/13/2024 10/13/2023, 08/0 01/2023 CKD PHOS USE SMARTSET 17981 11/24/2024 11/24/2023, 0 10/13/2023 Mammogram 04/07/2025 04/07/2024, 07/0 05/2024, 04/27/2023, Additional history exists O2 ASSESSMENT COMPLETED IN PAST YEAR FOR COPD 04/08/2025 04/08/2024 DXA Scan 06/05/2025 06/05/2023, 06/05/2023 Pap Smear [...] D LEVEL ONCE IN A LIFETIME-USE SMARTSET# 45616 Completed 11/14/2023, 05/05/2023, 08/16/2017, Additional history exists HPV (Gardasil) Vaccine Aged Out No lo nger eligible based on patient's age to complete this topic MENINGOCOCCAL (MENACTRA/MENVEO) Aged Out No longer eligible based on patient's age to complete this topic documented as of this encounter Medical Devices Not on filedocumented as of this encounter Visit Diagnoses Diagnosis Abdominal aortic [...] Power of Attor jazlyn? No Care Teams Real Estate Valuer Relationship Specialty Start Date End Date Stefany Benitez MD [address] [place] [address] PCP - General Family Medicine 04/25/22 documented as of this encounter
--- OUTSIDE RECORDS SUMMARY | 2024-05-27 09:18 | External Medical Summary ---
Author Name Unknown Address Unknown Organization K01:LABORATORY [facility] - [address] [facility] [address]. [facility] [address] Laboratory Report Ordering Provider Test Date Status DONNA GOLDSTEIN 05/07/2024 15:48:19 Final Observation Date Value Abnormality Reference (Units ) Status HbA1C 05/07/2024 15:48:19 5.3 4.0-5.6 (% ) Final The use of HbA1c to monitor glycemic status is based on normal hemoglobin and HbA composition. This test should not be used in patients with abnormal hemoglobin that affects the half life of the red blood cell or the in vivo glycation rates. Glucose, estimated average 05/07/2024 15:48:19 105 <126 (mg/dL) Final Performing Location LABORATORY [facility] - [address] [facility] [address]
--- OUTSIDE RECORDS SUMMARY | 2024-05-27 09:18 | External Medical Summary ---
Author Name Unknown Address Unknown Organization K01:LABORATORY [facility] - [address] [facility] [place] [address] Laboratory Report Ordering Provider Test Date Status LEANDER KEVIN 05/07/2024 15:48:19 Final Observation Date Value Abnormality Reference (Units ) Status BUN 05/07/2024 15:48:19 18 6-20 (mg/dL) Final Creatinine 05/07/2024 15:48:19 1.4 Above high normal 0.5-1.0 (mg/dL) Final Glomerular filtration rate/1.73 sq M.predicted [Volume Rate/Area] in Serum, Plasma or Blood by Creatinine-based formula (CKD-EPI) 05/07/2024 15:48:19 46 Below low normal >=60 (mL/min) Final eGFR is calculated based on the CKD-EPI 2020 equation. Sodium 05/07/2024 15:48:19 133 Below low normal 135 -146 (mmol/L) Final Potassium 05/07/2024 15:48:19 4.6 3.5-5.1 (m mol/L) Final Cl 05/07/2024 15:48:19 96 Below low normal 98- 107 (mmol/L) Final CO2 05/07/2024 15:48:19 24 22-32 (mmo l/L) Final Anion gap 05/07/2024 15:48:19 13 7-15 (mmol /L) Final Glucose 05/07/2024 15:48:19 95 70-120 (mg /dL) Final Albumin 05/07/2024 15:48:19 4.8 3.8-5.0 (g /dL) Final AST (Aspartate aminotransferase) 05/07/2024 15:48:19 21 10-35 (U/L) Fin al Alk Phos 05/07/2024 15:48:19 88 35-130 (U/ L) Final Bilirubin, Total 05/07/2024 15:48:19 1.0 <=1 .2 (mg/dL) Final Calcium 05/07/2024 15:48:19 9.2 8.4-10.2 ( mg/dL) Final Protein 05/07/2024 15:48:19 7.0 6.0-8.3 (g /dL) Final ALT (Alanine aminotransferase) 05/07/2024 15:48:19 18 10-35 (U/L) Mat melendez Performing Location LABORATORY [facility] - [address] [facility] [address]
--- OUTSIDE RECORDS SUMMARY | 2024-05-27 09:18 | External Medical Summary | Summary of Care ---
Author Name Unknown Organization [facility] Address [address] [place] [address] Phone [phone] Care Team Providers Care Receptionist Clerk Name Role Phone Stefany Benitez MD Primary Care Provid er Reason for Visit * Reason Comments Follow Up Encounter Details Date Type Department Care Team (Late st Contact Info) Description 05/07/2024 2:10 PM EDT Office Visit Vascular Surgery, [facility] [address] [place] [address] Sanjiv Wolf MD [address] [place] [address] Abdominal aortic stenosis*; PVD (peripheral vascular disease) ([facility]); Pre-op testing Allergies Active Allergy [...] by mouth in the morning. Active Umeclidinium [place] 62.5 MCG/ACT Inhalation Aerosol Powder Breath Activated [...] Wheezing or Cough. Active D3-50 1.25 MG (20578 UT) Oral Capsule (Cholecalciferol)Maureen cations:Age-related osteoporosis without [...] 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 [id number] mutation Heterozygous factor V Leiden mutation 09/30/2014 [...] (Oral) 02/28/1979 Pneumococcal Conjugate Vacci ne, 20-valent ([id number]) 05/01/2023 Pneumococcal Polysaccharide PPV23 (Pneumovax) 10/09/2015 Seasonal [...] CKD III, HTN, GERD, Heterozygous for prothrombin R37730D mutation, Dyslipidemia, Depression/Bipolar and known abd aortic stenosis Pt admitted to [facility] 12/02-12/07/[address] abd/pelvis [...] weak since her November 2023 admission to [facility] She had cared for her mother [...] Tablet by mouth in the morning. Umeclidinium [place] 62.5 MCG/ACT Inhalation Aerosol Powder Breath Activated [...] MOUTH IN THE MORNING AND ONE BEFORE [id number] Tablet 3 Ipratropium-Albuterol 0.5-2.5 (3) MG/3ML Inhalation Solution (Duoneb) Inhale 3 mL by mouth 4 times a day as needed for Dyspnea, Wheezing or Cough. D3-50 1.25 MG (99394 UT) Oral Capsule (Cholecalciferol) Take 1 Capsule [...] ectasia Fibroadenoma of breast Heterozygous for prothrombin B48120E mutation (HCC) Heterozygous factor V Leiden mutation [...] Leiden mutation (HCC) 09/30/2014 Heterozygous for prothrombin E52313L mutation (HCC) 09/30/2014 Hypertension goal BP (blood pressure) < 140/90 06/01/2021 Pt stated she recently started on HTN meds. INFORMATION 2000 factor V Leiden, prothrombin and MTHFR deficiency Malignant neoplasm of upper lobe of left lung (HCC) 09/10/2015 Mammary duct ectasia Mitral valve disorder 03/1996 mild prolapse, SBE prophylaxis Moderate COPD (chronic obstructive pulmonary disease) ([facility]) Dr Peoples Open wound of [...] + COMPUTER NAVIGATOR 07/26/2015 Dr. Noel at [facility] COLONOSCOPY, DIAGNOSTIC (RECTUM) 08/03/2016 normal, repeat 10 yrs/COLONOSCOPY FLEXIBLE PROXIMAL DIAGNOSTIC performed by Yesika Jarrett DO at ENDOSCOPY [facility] CRYOCAUTERY OF CERVIX DILATION AND CURETTAGE (D&C) 08/22/2004 for missed , Dr Conrad INFORMATION remove/repair left face silicone LUMBAR SPINE FUSION W/BONE GRAFT 08/2014 [facility] LYMPHADENECTOMY VIA THORACOSCOPY Left 09/10/2015 THORACOSCOPY WITH LYMPHADENECTOMY performed by Boris Miller MD at [facility] MAMMOGRAM BREAST NEEDLE BIOPSY CORE LEFT Left 02/11/2020 Fibroadenoma PUNCTURE DRAINAGE BREAST CYST Left 1994 abscess of left breast opened and drained REMOVAL OF JAW JOINT CARTILAGE 1985 three different operations at [facility] SINGLE LOBECTOMY, LUNG Left 09/10/2015 REMOVAL SINGLE LOBE LUNG performed by Boris Miller MD at [facility] THORACOSCOPY W/WEDGE/ANATOMIC RESECTION Left 09/10/2015 THORACOSCOPY W/WEDGE/ANATOMIC RESECTION performed by Boris Miller MD at [facility] US GUIDED BREAST BIOPSY RIGHT Right [...] animals transfusions: 1986 exercise: walking diet: no catholic/mandaeism: pentecostalism marital status: /engaged children: 1 gc: 0 [...] Stability Do you currently live in a residential or have no steady place to sleep [...] pain, shortness of breath, palpitations, angina or [place] Neurological: Negative for stroke, TIA, amaurosis fugax [...] on 5 meds GERD Heterozygous for prothrombin M59130M mutation Dyslipidemia Depression/Bipolar Seen by Dr. Cuevas 12/24/23 for post hospital follow-up, fkkmalttc-cz-[id number] hypertension, heart failure with preserved ejection fraction, [...] Dr. Alec Franklin, Pulmonary/Critical Care physician, @ [facility] ([phone]). He is the superintendent landfill operations for Ms. Carpenter. I relayed to Dr. [...] PA-C Section of Vascular [place] [address] [phone] I have reviewed the advanced practitioner's documentation [...] like to proceed with the surgery. [facility] Abdominal Vascular Surgery booklet was given to the patient. Sanjiv Wolf MD Section of Vascular [place] [address] [phone] documented in this encounter Nursing Notes * Katt Leslie, [facility] - 05/07/2024 2:08 PM EDT Reviewed the option of transferring scripts to [facility] pharmacy with patient and / or family. Katt Leslie CMA documented in this encounter Plan of Treatment Upcoming Encounters Date Type Department Care Team (Late st Contact Info) Description 05/07/2024 4:20 PM EDT Laboratory Laboratory, [address] [place] [id number] [address] [address] Arrived 07/31/2024 8:30 AM EDT Imaging Vascular Lab, [address] [place] [address] 07/31/2024 9:30 AM EDT Imaging Vascular Lab, [address], [address] [place] [address] 07/31/2024 10:30 AM EDT Imaging Vascular Lab, [address], [address] [address] 07/31/2024 11:30 AM EDT Imaging Vascular Lab, [address], [address] [address] 08/04/2024 10:00 AM EST Office Visit Gynecology/Obstetrics [facility] 132 [facility] [place] [address] Nathalia Guerrero PA-C 132 [facility] [place] [address] 08/06/2024 11:30 AM EST Office Visit Vascular Surgery, [address] [place] [address] Sanjiv Wolf MD [address] [place] [address] 09/15/2024 10:40 AM EST Office Visit [facility] [place] [address] [place] [phone] Stefany Benitez MD [address] [place] [address] 10/14/2024 9:30 AM EST Office Visit Cardiology, [facility] [address] [place] [address] Daniel Cuevas DO [address] [place] [address] 12/02/2024 2:40 PM EST Office Visit Nephrology, [facility] [address] [facility] [place] [address] Brad Johnson MD [address] [facility] [place] [address] Scheduled Orders Name Type Priority Associated Diagnoses Order Schedule CBC WITH WBC DIFFERENTIAL Lab Routine Abdominal aortic stenosis PVD (peripheral vascular disease) ([facility]) Pre-op testing Ordered: 05/07/2024 BASIC METABOLIC PANEL Lab Routine Abdominal aortic stenosis PVD (peripheral vascular disease) ([facility]) Pre-op testing Ordered: 05/07/2024 PREPARE PACKED RED BLOOD CELLS Blood Bank - Prepare Product Routine Abdominal aortic stenosis PVD (peripheral vascular disease) ([facility]) Pre-op testing Ordered: 05/07/2024 TYPE AND SCREEN Lab Routine Abdominal aortic stenosis PVD (peripheral vascular disease) ([facility]) Pre-op testing 1 Occurrences starting 05/07/2024 until 08/07/2024 VASC AORTIC DUPLEX EVAL-COMPLETE Medical Imaging Routine Abdominal aortic stenosis PVD (peripheral vascular disease) ([facility]) Pre-op testing Ordered: 05/07/2024 VASC RENAL VASCULAR SCAN-COMPLETE Medical Imaging Routine Abdominal aortic stenosis PVD (peripheral vascular disease) ([facility]) Pre-op testing Ordered: 05/07/2024 VASC MESENTERIC/CELIAC ART-COMP Medical Imaging Routine Abdominal aortic stenosis PVD (peripheral vascular disease) ([facility]) Pre-op testing Ordered: 05/07/2024 VASC ANKLE BRACHIAL [...] Additional history exists CKD HGB USE SMARTSET 29310 09/15/202409/15, 09/15/2023, 06/19/2023, Additional history exists Depression Monitoring 09/27/2024 09/27/2023 GFR 10/03/2024 04/02/2024, 11/29, 11/24/2023, Additional history exists Albumin/Creatinine Ratio 10/13/2024 10/13/2023, 08/0 01/2023 CKD PHOS USE SMARTSET 68051 11/24/2024 11/24/2023, 0 10/13/2023 Mammogram 04/07/2025 04/07/2024, [...] D LEVEL ONCE IN A LIFETIME-USE SMARTSET# 59437 Completed 11/14/2023, 05/05/2023, 08/16/2017, Additional history exists [...] Power of Attor jazlyn? No Care Teams Receptionist Clerk Relationship Specialty Start Date End Date Stefany Benitez MD [address] [place] [facility] [place] [address] PCP - General Family Medicine 04/25/22 documented as of this encounter
--- OUTSIDE RECORDS SUMMARY | 2024-05-27 09:18 | External Medical Summary | Summary of Care ---
Author Name Unknown Organization [facility] Address [address] [place] [address] Phone [phone] Care Team Providers Care Blueprint Trimmer Name Role Phone Stefany Benitez MD Primary Care Provid er Encounter Details Date Type Department Care Team (Latest Contact Info) Description 06/11/2023 7:25 AM EDT - 06/11/2023 11:59 PM EDT Hospital Encounter Radiology Film File [address] [place] [address] Discharge Disposition: Home - Self Care Allergies Active Allergy Reactions Criticality Noted Date [...] as of this encounter (statuses as of 05/01/2024) Medications Medication Sig Dispensed Refills Start Date [...] 180 days 1 Each 1 04/21/2021 Active Additional Information Patient not taking.Reported on 11/19/2023 Acetaminophen ER 650 MG Oral Tablet Extended Release Take 1 Tablet by mouth every 8 hours as needed. Active PARoxetine HCl 40 MG Oral Tablet (pAXil) Take 1 Tablet by mouth in the morning. 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 Condyloma acuminatum Moderate COPD (chronic obstructive pulmonary dis ease) Overview: Dr Peoples Gastroesophageal reflux disease without esophagi tis Depression with anxiety documented as of this encounter (statuses as of 05/01/2024) Resolved Problems Problem Noted Date Diagnosed Date Resolved Date Palpitations 11/25/2015 08/16/2017 Malignant neoplasm of upper lobe of left lung 09/10/2007/26/2023 Cancer Staging:Clinical stage from 09/10/2015:Stage IA(T1a, N0, [...] as of this encounter (statuses as of 05/01/2024) Immunizations Name Administration Dates Next Due COVID-19 mRNA, LNP-s, No Pre serve, 2-Dose Series (Moderna) 01/20/2021,12/23/2020 Pneumococcal Conjugate Vacci ne, 20-valent ([id number]) 05/01/2023 Pneumococcal Polysaccharide PPV23 (Pneumovax) 10/09/2015 Seasonal Influenza Virus Vac cine, Unspecified Formulation 07/19/2018 Seasonal Influenza, PF, 6 M & above, IM , (FluLaval or Fluzone) 07/21/2022,06/17/2019 Seasonal Influenza, Quadriva lent, No Preserve, IM 07/03/2020,07/19/2016 Seasonal Influenza, Split, I IV3, With Preserve, Inj 08/01/2017,09/16/2015,08/10/2009 TDAP (age 10 and older)(Boostrix) 10/13/2009 documented as of this encounter Social History Tobacco Use Types Packs/Day Years Used Date Smoking Tobacco: Former Cigarettes 1 39.6 1 984 - 04/24/2023 Smokeless Tobacco: Never [...] Surgery, [facility] [address] [facility] [place] [address] Sanjiv Wolf MD [address] [place] [address] 08/04/2024 10:00 AM EST Office Visit Gynecology/Obstetrics [facility] [address] [facility] [place] [address] Nathalia Guerrero PA-C 132 [facility] [place] [address] 09/15/2024 10:40 AM EST Office Visit Family [facility] [address] [place] [address] Stefany Benitez MD [address] [place] [address] 10/14/2024 9:30 AM EST Office Visit Cardiology, [facility] 132 [facility] [place] [address] Daniel Cuevas DO [facility] [place] [address] 12/02/2024 2:40 PM EST Office Visit Nephrology, [facility] [address] [place] [address] Brad Johnson MD 200 [facility] [place], [place] [address] Scheduled Procedures Name Priority Associated Diagnoses Date/Ti me COLONOSCOPY FLEXIBLE PROXIMA L DIAGNOSTIC Recall Encounter for screening colonoscopy Health Maintenance Due Date Last Done Comments HIV Screening 1981 Alpha-1 Antitrypsin 1984 Hepatitis C Screening 1984 [...] Additional history exists CKD HGB USE SMARTSET 38157 09/15/202409/15, 09/15/2023, 06/19/2023, Additional history exists Depression Monitoring 09/27/2024 09/27/2023 GFR 10/03/2024 04/02/2024, 11/29, 11/24/2023, Additional history exists Albumin/Creatinine Ratio 10/13/2024 10/13/2023, 08/0 01/2023 CKD PHOS USE SMARTSET 65543 11/24/2024 11/24/2023, 0 10/13/2023 Mammogram 04/07/2025 04/07/2024, [...] D LEVEL ONCE IN A LIFETIME-USE SMARTSET# [id number] Completed 11/14/2023, 05/05/2023, 08/16/2017, Additional history exists HPV (Gardasil) Vaccine Aged Out No lo nger eligible based on patient's age to complete this topic MENINGOCOCCAL (MENACTRA/MENVEO) Aged Out No longer eligible based on patient's age to complete this topic documented as of this encounter Medical Devices Not on filedocumented as of this encounter Procedures Procedure Name Priority Date/Time Associated Diagnosis Comments RADIOLOGY EXAM - CT (IMAGES ONLY, NO REPORT) Routine 06/11/2023 7:25 AM EDT documented in this encounter Results * RADIOLOGY EXAM - CT (IMAGES ONLY, NO REPORT) (06/11/2023 7:25 AM EDT) 06/11/2023 7:24 AM EDT Narrative Scheduling, Silent - 04/30/2024 1:31 AM EDT This is an imaging study not interpreted or resulted by a [employer] or [employer] contracted radiologist. Nathalia CANTRELL RAD CT documented in this encounter Advance Directives * [...] Power of Attor jazlyn? No Care Teams Blueprint Trimmer Relationship Specialty Start Date End Date Stefany Benitez MD [address] [place] [address] PCP - General Family Medicine 04/25/22 documented as of this encounter
--- OUTSIDE RECORDS SUMMARY | 2024-05-27 09:18 | External Medical Summary | Summary of Care ---
Author Name Unknown Organization [facility] Address [address] [place] [address] Phone [phone] Care Team Providers Care Stripping And Booking Machine Operator Name Role Phone Stefany Benitez MD Primary Care Provid er Encounter Details Date Type Department Care Team (Latest Contact Info) Description 10/21/2023 10:25 AM EST - 10/21/2023 11:59 PM EST Hospital Encounter Radiology Film File [address] [place] [address] Discharge Disposition: Home - Self [...] by mouth in the morning. Active Umeclidinium Medon 62.5 MCG/ACT Inhalation Aerosol Powder Breath Activated [...] 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 P21059B mutation Heterozygous factor V Leiden mutation 09/30/2014 [...] (Moderna) 01/20/2021,12/23/2020 Pneumococcal Conjugate Vacci ne, 20-valent ([id number]) 05/01/2023 Pneumococcal Polysaccharide PPV23 (Pneumovax) 10/09/2015 Seasonal [...] 09/27/2023 Does the household have a re lar source of income? (Household - for ages [...] 2:10 PM EDT Office Visit Vascular Surgery, [facility] [place] [address] Sanjiv Wolf MD [address] [place] [address] 08/04/2024 10:00 AM EST Office Visit Gynecology/Obstetrics [facility] [place] [address] Nathalia Guerrero PA-C 132 [place] [address] 09/15/2024 10:40 AM EST Office Visit Family [facility] [address] [place] [address] Stefany Benitez MD [address] [place] [address] 10/14/2024 9:30 AM EST Office Visit Cardiology, [facility] 132 [place] [address] Daniel Cuevas, 132 [place] [address] 12/02/2024 2:40 PM EST Office Visit Nephrology, [facility] [address] [place] [address] Brad Johnson MD [address] [place], [place] [address] Scheduled Procedures Name Priority Associated Diagnoses Date/Ti [...] Additional history exists CKD HGB USE SMARTSET 74221 09/15/202409/15, 09/15/2023, 06/19/2023, Additional history exists Depression Monitoring 09/27/2024 09/27/2023 GFR 10/03/2024 04/02/2024, 11/29, 11/24/2023, Additional history exists Albumin/Creatinine Ratio 10/13/2024 10/13/2023, 08/0 01/2023 CKD PHOS USE SMARTSET 07062 11/24/2024 11/24/2023, 0 10/13/2023 Mammogram 04/07/2025 04/07/2024, [...] D LEVEL ONCE IN A LIFETIME-USE SMARTSET# 10986 Completed 11/14/2023, 05/05/2023, 08/16/2017, Additional history exists [...] - CT (IMAGES ONLY, NO REPORT) Routine 10/21/2023 10:25 AM EST documented in this encounter Results * RADIOLOGY EXAM - CT (IMAGES ONLY, NO REPORT) (10/21/2023 10:25 AM EST) 10/21/2023 10:2 2 AM EST Narrative Scheduling, Silent - 04/30/2024 1:34 AM EDT This is an imaging study not interpreted or resulted by a [employer] or [employer] contracted radiologist. Nathalia CANTRELL RAD CT documented [...] Power of Attor jazlyn? No Care Teams Stripping And Booking Machine Operator Relationship Specialty Start Date End Date Stefany Benitez MD [address] [facility] [place] [address] PCP - General Family Medicine 04/25/22 documented as of this encounter
--- OUTSIDE RECORDS SUMMARY | 2024-05-27 09:18 | External Medical Summary ---
Author Name Unknown Address Unknown Organization K01:[facility]ORY [facility] - [address] [facility] [address] Laboratory Report Ordering Provider Test Date Status BRYANT BRANDON 05/07/2024 15:48:19 Final Observation Date Value Abnormality Reference (Units ) Status WBC, Total 05/07/2024 15:48:19 4.61 4.00-10.80 (K/uL) Final RBC 05/07/2024 15:48:19 3.95 3.85-5.15 (M/uL) Final Hemoglobin 05/07/2024 15:48:19 11.5 Below low normal 12.0-15.3 (g/dL) Final HCT 05/07/2024 15:48:19 35.2 Below low normal 36.0-45.2 (%) Final MCV 05/07/2024 15:48:19 89.1 81.5-97.5 (fL) Final MCH 05/07/2024 15:48:19 29.1 27.0-34.0 (pg) Final MCHC 05/07/2024 15:48:19 32.7 32.0-36.0 (g/dL) Final RDW 05/07/2024 15:48:19 15.6 11.5-15.5 (%) Final Platelets 05/07/2024 15:48:19 212 140-400 (K/uL) Final MPV 05/07/2024 15:48:19 11.5 6.6-11.1 (fL) Final Nucleated erythrocytes/100 leukocytes [Ratio] in Blood by Automated count 05/07/2024 15:48:19 0 <=0 (/100 WBCs) Final Performing Location [facility] - [address] [place] [address]
--- OUTSIDE RECORDS SUMMARY | 2024-05-27 09:18 | External Medical Summary ---
Author Name Unknown Address Unknown Organization K01:[facility]ORY [facility] [place] - [address] [facility] [address] Laboratory Report Ordering Provider Test Date Status BRYANT BRANDON 05/07/2024 15:48:19 Final Observation Date Value Abnormality Reference (Units ) Status SYNC LEUKOCYTES IN BLOOD BY AUTOMATED COUNT 05/07/2024 15:48:19 4.61 4.00-10.80 (K/uL) Final Segs 05/07/2024 15:48:19 54.8 40.0-75.0 (%) Final Lymphs % 05/07/2024 15:48:19 31.5 18.0-42.0 (%) Final Monos 05/07/2024 15:48:19 9.3 1.0-11.0 (%) Final Eosinophils 05/07/2024 15:48:19 2.0 0.0-6.0 (%) Final Basos 05/07/2024 15:48:19 2.0 0.0-2.0 (%) Final Immature Granulocyte, Percent 05/07/2024 15:48:19 0.4 0.0-2.0 (%) Final Absolute Segs 05/07/2024 15:48:19 2.53 1.80-7.70 (K/uL) Final Lymphs, absolute 05/07/2024 15:48:19 1.45 1.00-4.80 (K/ul) Final Monos, Abs 05/07/2024 15:48:19 0.43 0.00-1.10 (K/uL) Final Eos, Abs 05/07/2024 15:48:19 0.09 0.00-0.70 (K/uL) Final Basos, Abs 05/07/2024 15:48:19 0.09 0.00-0.20 (K/uL) Final Immature Granulocytes, Number 05/07/2024 15:48:19 0.02 0.00-0.20 (K/uL) Final Performing Location [facility]ORY [facility] [place] - [address] [facility] [address]
--- OUTSIDE RECORDS SUMMARY | 2024-05-27 09:18 | External Medical Summary | Summary of Care ---
Author Name Unknown Organization [facility] Address [address] [place] [address] Phone [phone] Care Team Providers Care Embossograph Operator Name Role Phone Stefany Benitez MD Primary Care Provid er Encounter Details Date Type Department Care Team (Latest Contact Info) Description 10/23/2023 6:55 AM EST - 10/23/2023 11:59 PM EST Hospital Encounter Radiology Film File [address] [place] [address] Discharge Disposition: Home - Self [...] by mouth in the morning. Active Umeclidinium Sublimity 62.5 MCG/ACT Inhalation Aerosol Powder Breath Activated [...] 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 [id number] mutation Heterozygous factor V Leiden mutation 09/30/2014 [...] (Moderna) 01/20/2021,12/23/2020 Pneumococcal Conjugate Vacci ne, 20-valent ([id number]) 05/01/2023 Pneumococcal Polysaccharide PPV23 (Pneumovax) 10/09/2015 Seasonal [...] 2:10 PM EDT Office Visit Vascular Surgery, [facility] [address] [place] [address] Sanjiv Wolf MD [address] [place] [address] 08/04/2024 10:00 AM EST Office Visit Gynecology/Obstetrics [facility] 132 [place] [address] Nathalia Guerrero PA-C 132 [facility] [place] [address] 09/15/2024 10:40 AM EST Office Visit Family [facility] [address] [place] [address] Stefany Benitez MD [address] [place] [address] 10/14/2024 9:30 AM EST Office Visit Cardiology, [facility] 132 [place] [address] Daniel Cuevas, 132 [facility] [place] [address] 12/02/2024 2:40 PM EST Office Visit Nephrology, [facility] [address] [place] [address] Brad Johnson MD [address] [place], [place] [address] Scheduled Procedures Name Priority Associated Diagnoses Date/Ti [...] Additional history exists CKD HGB USE SMARTSET 14701 09/15/202409/15, 09/15/2023, 06/19/2023, Additional history exists Depression Monitoring 09/27/2024 09/27/2023 GFR 10/03/2024 04/02/2024, 11/29, 11/24/2023, Additional history exists Albumin/Creatinine Ratio 10/13/2024 10/13/2023, 08/0 01/2023 CKD PHOS USE SMARTSET 19589 11/24/2024 11/24/2023, 0 10/13/2023 Mammogram 04/07/2025 04/07/2024, [...] D LEVEL ONCE IN A LIFETIME-USE SMARTSET# [id number] Completed 11/14/2023, 05/05/2023, 08/16/2017, Additional history exists [...] Date/Time Associated Diagnosis Comments RADIOLOGY EXAM - GENERAL RAD (IMAGES ONLY,NO REPORT) Routine 10/23/2023 6:55 AM EST documented in this encounter Results * RADIOLOGY EXAM - GENERAL RAD (IMAGES ONLY,NO REPORT) (10/23/2023 6:55 AM EST) 10/23/2023 6:52 AM EST Narrative Scheduling, Silent - 04/30/2024 1:37 AM EDT This is an imaging study not interpreted or resulted by a [employer] or [employer] contracted radiologist. Nathalia CANTRELL RADIOLOGY (RAD G ENERAL) documented in this encounter Advance Directives * [...] Power of Attor jazlyn? No Care Teams Embossograph Operator Relationship Specialty Start Date End Date Stefany Benitez MD [address] [place] [address] PCP - General Family Medicine 04/25/22 documented as of this encounter
--- OUTSIDE RECORDS SUMMARY | 2024-05-27 09:18 | External Medical Summary | Summary of Care ---
Author Name Unknown Organization [facility] Address [address] [place] [address] Phone [phone] Care Team Providers Care Chuck Boner Name Role Phone Stefany Benitez MD Primary Care Provid er Reason for Visit * Reason Comments Outpatient Testing Encounter Details Date Type Department Care Team (Late st Contact Info) Description 05/07/2024 4:20 PM EDT Laboratory Laboratory, [facility] 132 [place] [phone] [facility] [address] [place] [address] [place] (acute kidney injury) ([facility]); Chronic heart failure with preserved ejection fraction ([facility]); Abdominal aortic stenosis; PVD (peripheral vascular disease) ([facility]); Pre-op testing; Encounter for long-term (current) use of other [...] by mouth in the morning. Active Umeclidinium Napanoch 62.5 MCG/ACT Inhalation Aerosol Powder Breath Activated [...] Wheezing or Cough. Active D3-50 1.25 MG (76640 UT) Oral Capsule (Cholecalciferol)Maureen cations:Age-related osteoporosis without [...] 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 T81922G mutation Heterozygous factor V Leiden mutation 09/30/2014 [...] (Moderna) 01/20/2021,12/23/2020 Pneumococcal Conjugate Vacci ne, 20-valent ([id number]) 05/01/2023 Pneumococcal Polysaccharide PPV23 (Pneumovax) 10/09/2015 Seasonal [...] Care Team (Late st Contact Info) Description 07/31/2024 8:30 AM EDT Imaging Vascular Lab, [address] 132 [facility] [place] [address] 07/31/2024 9:30 AM EDT Imaging Vascular Lab, [address], [place] [address] [place] [address] 07/31/2024 10:30 AM EDT Imaging Vascular Lab, [address], [place] [address] [place] [address] 07/31/2024 11:30 AM EDT Imaging Vascular Lab, [address], [place] 132 [facility] [place] [address] 08/04/2024 10:00 AM EST Office Visit Gynecology/Obstetrics [facility] [address] [place] [address] Nathalia Guerrero PA-C [address] [place] [address] 08/06/2024 11:30 AM EST Office Visit Vascular Surgery, [facility] [address] [facility] [address] Sanjiv Wolf MD [address] [place] [address] 09/15/2024 10:40 AM EST Office Visit [facility] [address] [place] [address] Stefany Benitez MD [address] [place] [address] 10/14/2024 9:30 AM EST Office Visit Cardiology, [facility] [address] [place] [address] Daniel Cuevas DO [address] [place] [address] 12/02/2024 2:40 PM EST Office Visit Nephrology, [facility] [address] [place], [place] [address] Brad Johnson MD [address] [facility] [address] [place], [place] [address] Pending Results Name Type Priority Associated Diagnoses Date /Time COMPREHENSIVE METABOLIC PANEL Lab Routine GARLAND (acute kidney injury) (HCC) Chronic heart failure with preserved ejection fraction (HCC) 05/07/2024 3:48 PM EDT TYPE AND SCREEN Lab Routine Abdominal aortic stenosis PVD (peripheral vascular disease) (HCC) Pre-op testing 05/07/2024 3:48 PM EDT HEMOGLOBIN A1C Lab Routine Encounter for long-term (current) use of other medications 05/07/2024 3:48 PM EDT LIPID PANEL WITH DIRECT LDL IF TG IS HIGH Lab Routine Encounter for long-term (current) use of other medications 05/07/2024 3:48 PM EDT Scheduled Procedures Name Priority Associated Diagnoses [...] Additional history exists CKD HGB USE SMARTSET 98031 09/15/202409/15, 09/15/2023, 06/19/2023, Additional history exists Depression Monitoring 09/27/2024 09/27/2023 GFR 10/03/2024 04/02/2024, 0312/2023, 11/24/2023, Additional history exists Albumin/Creatinine Ratio 10/13/2024 10/13/2023, 08/0 01/2023 CKD PHOS USE SMARTSET 93498 11/24/2024 11/24/2023, 0 10/13/2023 Mammogram 04/07/2025 04/07/2024, 070 05/2024, 04/27/2023, Additional history exists O2 ASSESSMENT [...] D LEVEL ONCE IN A LIFETIME-USE SMARTSET# 32664 Completed 11/14/2023, 05/05/2023, 08/16/2017, Additional history exists [...] injury) (HCC) Acute kidney failure, unspecified Chronic heart failure with preserved ejection fraction (HCC) Abdominal aortic stenosis Congenital atresia and stenosis of aorta PVD (peripheral vascular disease) (HCC) Peripheral vascular disease, unspecified Pre-op testing Preoperative examination, unspecified Encounter for long-term (current) use of other medications documented in this encounter Advance Directives * [...] Power of Attor jazlyn? No Care Teams Chuck Boner Relationship Specialty Start Date End Date Stefany Benitez MD [address] [place] [address] PCP - General Family Medicine 04/25/22 documented as of this encounter
--- OUTSIDE RECORDS SUMMARY | 2024-05-27 09:19 | External Medical Summary | Summary of Care ---
Author Name Unknown Organization [facility] Address [address] [place] [address] Phone [phone] Care Team Providers Care Custom Car Builder Name Role Phone Stefany Benitez MD Primary Care Provid er Reason for Visit * Reason Onset Date Comments STAIR Lung Nodule 04/25/2024 Encounter Details Date Type Department Care Team (Late st Contact Info) Description 04/25/2024 Telephone STAIR LUNG NODULE [address] [place], [place] [id number] Program, Stair [address] [place] [address] STAIR Lung Nodule Allergies Active Allergy Reactions Criticality Noted Date [...] as of this encounter (statuses as of 04/25/2024) Medications Medication Sig Dispensed Refills Start Date [...] by mouth in the morning. Active Umeclidinium [place] 62.5 MCG/ACT Inhalation Aerosol Powder Breath Activated [...] Wheezing or Cough. 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 Condyloma acuminatum Moderate COPD (chronic obstructive pulmonary dis ease) Overview: Dr Peoples Gastroesophageal reflux disease without esophagi tis Depression with anxiety documented as of this encounter (statuses as of 04/25/2024) Resolved Problems Problem Noted Date Diagnosed Date [...] as of this encounter (statuses as of 04/25/2024) Immunizations Name Administration Dates Next Due COVID-19 mRNA, LNP-s, No Pre serve, 2-Dose Series (Moderna) 01/20/2021,12/23/2020 Pneumococcal Conjugate Vacci ne, 20-valent ([id number]) 05/01/2023 Pneumococcal Polysaccharide PPV23 (Pneumovax) 10/09/2015 Seasonal [...] encounter Miscellaneous Notes * Telephone Encounter - Beatrice Martinez LPN - 04/25/2024 10:37 AM EDT Patient managed in STAIR Program for Pulmonary Nodule - matthewner added Requested imaging from [facility] documented in this encounter Plan of Treatment Upcoming Encounters Date Type Department Care Team (Late st Contact Info) Description 05/07/2024 2:10 PM EDT Office Visit Vascular Surgery, [facility] [address] [place] [address] Sanjiv Wolf MD [address] [place] [address] 08/04/2024 10:00 AM EST Office Visit Gynecology/Obstetrics [facility] [address] [place] [address] Nathalia Guerrero PA-C [address] [place] [address] 09/15/2024 10:40 AM EST Office Visit Family [facility] [place] [address] [place] [address] Stefany Benitez MD [address] [place] [address] 10/14/2024 9:30 AM EST Office Visit Cardiology, [facility] [address] [place] [address] Daniel Cuevas, [address] [place] [address] 12/02/2024 2:40 PM EST Office Visit Nephrology, [facility] 200 [facility] [place] [address] Brad Johnson MD 200 [facility] [place] [address] Scheduled Procedures Name Priority Associated Diagnoses Date/Ti [...] (3 - 2022-24 season) 2023 01/20/2021, 12/23/2020 *CXR OR CT FOR COPD EVER 04/13/2024 Influenza Vaccine (FLU shot) (#1) 2024 06/19/2023, 07/21/2022, 07/03/2020, Additional history exists CKD HGB USE SMARTSET 10280 09/15/202409/15, 09/15/2023, 06/19/2023, Additional history exists Depression Monitoring 09/27/2024 09/27/2023 GFR 10/03/2024 04/02/2024, /12/2023, 11/24/2023, Additional history exists Albumin/Creatinine Ratio 10/13/2024 10/13/2023, 08/0 01/2023 CKD PHOS USE SMARTSET 34427 11/24/2024 11/24/2023, 0 10/13/2023 Mammogram 04/07/2025 04/07/2024, [...] D LEVEL ONCE IN A LIFETIME-USE SMARTSET# 78089 Completed 11/14/2023, 05/05/2023, 08/16/2017, Additional history exists [...] Power of Attor jazlyn? No Care Teams Custom Car Builder Relationship Specialty Start Date End Date Stefany Benitez MD [address] [place] [address] PCP - General Family Medicine 04/25/22 documented as of this encounter
--- OUTSIDE RECORDS SUMMARY | 2024-05-27 09:19 | External Medical Summary | Summary of Care ---
Author Name Unknown Organization [facility] Address [address] [facility] [address] Phone [phone] Care Team Providers Care Process Excellence Manager Name Role Phone Stefany Benitez MD Primary Care Provid er Encounter Details Date Type Department Care Team (Late st Contact Info) Description 04/11/2024 Orders Only PATIENT PORTAL DO NOT DELETE THIS DEPT USED BY [place] [id number] Allergies Active Allergy Reactions Criticality Noted Date [...] as of this encounter (statuses as of 04/11/2024) Medications Medication Sig Dispensed Refills Start Date [...] by mouth in the morning. Active Umeclidinium [place] 62.5 MCG/ACT Inhalation Aerosol Powder Breath Activated [...] Wheezing or Cough. 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 Condyloma acuminatum Moderate COPD (chronic obstructive pulmonary dis ease) Overview: Dr Peoples Gastroesophageal reflux disease without esophagi tis Depression with anxiety documented as of this encounter (statuses as of 04/11/2024) Resolved Problems Problem Noted Date Diagnosed Date [...] as of this encounter (statuses as of 04/11/2024) Immunizations Name Administration Dates Next Due COVID-19 mRNA, LNP-s, No Pre serve, 2-Dose Series (Moderna) 01/20/2021,12/23/2020 Pneumococcal Conjugate Vacci ne, 20-valent ([id number]) 05/01/2023 Pneumococcal Polysaccharide PPV23 (Pneumovax) 10/09/2015 Seasonal [...] Care Team (Late st Contact Info) Description 04/23/2024 3:00 PM EDT Imaging Radiology [address] 132 [facility] [place] [address] 04/23/2024 3:30 PM EDT Imaging Radiology [address] 132 [facility] [place] [address] 05/07/2024 2:10 PM EDT Office Visit Vascular Surgery, [facility] 132 [facility] [place] [address] Sanjiv Wolf MD [address] [place] [address] 08/04/2024 10:00 AM EST Office Visit Gynecology/Obstetrics [facility] 132 [facility] [place] [address] Nathalia Guerrero PA-C 132 [facility] [place] [address] 09/15/2024 10:40 AM EST Office Visit [facility] [place] [address] [place] [id number] Stefany Benitez MD [address] [place] [address] 10/14/2024 9:30 AM EST Office Visit Cardiology, [facility] [address] [facility] [place] [address] Daniel Cuevas DO [address] [place] [address] 12/02/2024 2:40 PM EST Office Visit Nephrology, [facility] [address] [facility] [place] [address] Brad Johnson MD [address] [place] [address] Scheduled Procedures Name Priority Associated Diagnoses Date/Ti [...] exists Albumin/Creatinine Ratio 10/13/2024 10/13/2023, 08/0 01/2023 Mammogram 04/07/2025 04/07/2024, 04/01, 04/27/2023, Additional history exists O2 ASSESSMENT COMPLETED [...] D LEVEL ONCE IN A LIFETIME-USE SMARTSET# 93359 Completed 11/14/2023, 05/05/2023, 08/16/2017, Additional history exists [...] Power of Attor jazlyn? No Care Teams Process Excellence Manager Relationship Specialty Start Date End Date Stefany Benitez MD [address] [place] [address] PCP - General Family Medicine 04/25/22 documented as of this encounter
--- OUTSIDE RECORDS SUMMARY | 2024-05-27 09:19 | External Medical Summary | Summary of Care ---
Author Name Unknown Organization [facility] Address [address] [facility] [address] Phone [phone] Care Team Providers Care Internet Specialist Name Role Phone Stefany Benitez MD Primary Care Provid er Reason for Visit * Reason Comments Return Visit Hypertension Encounter Details Date Type Department Care Team (Late st Contact Info) Description 04/08/2024 2:00 PM EDT [facility] [place] [address] rBad Johnson MD [address] [facility] [place] [address] Stage 3b chronic kidney disease (HCC)* Allergies Active Allergy Reactions Criticality Noted Date [...] as of this encounter (statuses as of 04/09/2024) Medications Medication Sig Dispensed Refills Start Date [...] by mouth in the morning. Active Umeclidinium [place] 62.5 MCG/ACT Inhalation Aerosol Powder Breath [...] Wheezing or Cough. 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 Condyloma acuminatum Moderate COPD (chronic obstructive pulmonary dis ease) Overview: Dr Peoples Gastroesophageal reflux disease without esophagi tis Depression with anxiety documented as of this encounter (statuses as of 04/09/2024) Resolved Problems Problem Noted Date Diagnosed Date Resolved Date Palpitations 11/25/2015 08/16/2017 Malignant neoplasm of upper lobe of left lung 09/10/20 15 07/26/2023 Cancer Staging:Clinical stage from 09/10/2015:Stage IA(T1a, N0, M0) - Signed by Boris Miller MD on 09/10/2015 Pathologic:Stage IA(T1a, N0, cM0) - Signed by Boris Miller MD on 11/02/2015 Overview: Surgery Date: 12/11/15 Operation: Left VATS (thoracoscopy) -- upper lobe [...] as of this encounter (statuses as of 04/09/2024) Immunizations Name Administration Dates Next Due COVID-19 mRNA, LNP-s, No Pre serve, 2-Dose Series (Moderna) 01/20/2021,12/23/2020 Diptheria/Tetanus (Adult) 02/28/1979 OPV - Polio Virus Vaccine (Oral) 02/28/1979 Pneumococcal Conjugate Vacci ne, 20-valent ([id number]) 05/01/2023 Pneumococcal Polysaccharide PPV23 (Pneumovax) 10/09/2015 Seasonal [...] Sign Reading Time Taken Comments Blood Pressure 165/67 04/08/2024 2:08 PM EDT Pulse 70 04/08/2024 2:08 PM EDT Temperature 37.4 C (99.3 F) 04/08/2024 2:06 PM ED T Respiratory Rate 18 04/08/2024 2:06 PM EDT Oxygen Saturation 95% 04/08/2024 2:06 PM EDT Inhaled Oxygen Concentration - - Weight 56.1 kg (123 lb 11.2 oz) 04/08/2024 2:06 PM EDT Height - - Body Mass Index 22.63 03/14/2024 11:42 AM EDT documented in this [...] Progress Notes * Brad Johnson MD - 04/08/2024 2:12 PM EDT Subjective: Melissa Carpenter is a 58 year old female. Chief Complaint Patient presents with Return Visit Hypertension HPI: 58-year-old female with severe premature Atherosclerosis, HTN, CKD 3B. She has hypertension which seems quite severe [...] secondary to massive fluid intake without any Solid food intake. Her more recent sodium or borderline low. She has chronic shortness of breath but feels it is baseline at this point Since last visit ---renal labs got much worse with creat up to 2.5 and K of 5.6. Lasix , Aldactone and losartan stopped. Few weeks later renal labs got better but then She was admitted for SOB--Mixed COPD/Pneumonia/CHF. Now on entresto and lasix 40. No Aldactone. Also has been seen by vascular surgery. Has extensive Aortic Stenosis and is supposed to have extensive vascular procedure for Claudication in the coming monhts. Also getting CT angio--Chest and abd. NSAID No Renal Stone No Herbal Medication [...] Tablet by mouth in the morning. Umeclidinium [place] 62.5 MCG/ACT Inhalation Aerosol Powder Breath [...] MOUTH IN THE MORNING AND ONE BEFORE [id number] Tablet 3 Ipratropium-Albuterol 0.5-2.5 (3) MG/3ML Inhalation Solution (Duoneb) Inhale 3 mL by mouth 4 times a day as needed for Dyspnea, Wheezing or Cough. D3-50 1.25 MG (67744 UT) Oral Capsule (Cholecalciferol) Take 1 Capsule [...] by mouth at bedtime. 180 Capsule 3 Zoster Vac Recomb Adjuvanted 50 MCG/0.5ML Intramuscular Suspension Reconstituted (Shingrix) Inject 0.5 mL into a large muscle now and repeat dose in 60 to 180 days (Patient not taking: Reported on 11/19/2023) 1 Each 1 No current facility-administered medications [...] Leiden mutation (HCC) 09/30/2014 Heterozygous for prothrombin [id number] mutation ([facility]) 09/30/2014 Hypertension goal BP (blood pressure) < 140/90 06/01/2021 Pt stated she recently started on HTN meds. INFORMATION 2000 factor V Leiden, prothrombin and MTHFR deficiency Malignant neoplasm of upper lobe of left lung ([facility]) 09/10/2015 Mammary duct ectasia Mitral [...] Benign- Excision of left breast mass- [facility] [place]. Villar BIOPSY OF BREAST, OPEN Left 01/16/2012 partial ductal excision; fibrocystic changes BRONCHOSCOPY W/ FLUORO + COMPUTER NAVIGATOR 07/26/2015 Dr. Noel at [facility] COLONOSCOPY, DIAGNOSTIC (RECTUM) 08/03/2016 normal, repeat 10 yrs/COLONOSCOPY FLEXIBLE PROXIMAL DIAGNOSTIC performed by Yesika Jarrett DO at ENDOSCOPY [facility] CRYOCAUTERY OF CERVIX DILATION AND CURETTAGE (D&C) 08/22/2004 for missed , Dr Conrad INFORMATION remove/repair left face silicone LUMBAR SPINE FUSION W/BONE GRAFT 08/2014 [facility] LYMPHADENECTOMY VIA THORACOSCOPY Left 09/10/2015 THORACOSCOPY WITH LYMPHADENECTOMY performed by Boris Miller MD at [place] [facility] MAMMOGRAM BREAST NEEDLE BIOPSY CORE LEFT Left 02/11/2020 Fibroadenoma PUNCTURE DRAINAGE BREAST CYST Left 1994 abscess of left breast opened and drained REMOVAL OF JAW JOINT CARTILAGE 1985 three different operations at [facility] SINGLE LOBECTOMY, LUNG Left 09/10/2015 REMOVAL SINGLE LOBE LUNG performed by Boris Miller MD at [place] [facility] THORACOSCOPY W/WEDGE/ANATOMIC RESECTION Left 09/10/2015 THORACOSCOPY W/WEDGE/ANATOMIC RESECTION performed by Boris Miller MD at [facility] US GUIDED BREAST BIOPSY RIGHT Right 05/15/2023 [...] eardrops Tetracycline Nausea/vomiting Family History Problem Relation Name Age of [...] date: 1983 Quit date: 04/24/2023 Years since quittin.9 Passive exposure: Past Smokeless tobacco: Never Tobacco [...] animals transfusions: 1986 exercise: walking diet: no scientologist/gnosticist: mu-ism marital status: /engaged children: 1 gc: 0 [...] Stability Do you currently live in a usp or have no steady place to sleep [...] - for ages0-17 years): Not on file Ambulation: No assisted device Review of Systems: OBJECTIVE: PHYSICAL EXAM: BP 165/67 (BP Site: Right Arm, BP Position: Sitting, BP Cuff Size: Regular) | Pulse 70 | Temp 37.4 C (99.3 F) (Tympanic) | Resp 18 | Wt 56.1 kg (123 lb 11.2 oz) | LMP 04/06/2020 | SpO2 95% | BMI 22.63 kg/m | BSA 1.57 m General: alert and no distress Head: [...] lesions BP Readings from Last 4 Encounters: 04/08/24 165/67 04/02/24 168/82 03/21/24 154/74 03/14/24 160/72 Wt Readings from Last 4 Encounters: 04/08/24 56.1 kg (123 lb 11.2 oz) 04/02/24 54 kg (119 lb 1.6 oz) 03/21/24 52.8 kg (116 lb 8 oz) 03/14/24 51.4 kg (113 lb 6.4 oz) Estimated body mass index is 22.63 kg/m as calculated from the following: Height as of 03/14/24: 1.575 m (5' 2"). Weight as of this encounter: 56.1 kg (123 lb 11.2 oz). Recent Labs Units 04/02/24 1455 12/13/23 1112 11/24/23 0814 11/14/23 1556 SODIUM - [facility] mmol/L -- 136 133* 134* POTASSIUM - [facility] mmol/L -- 4.8 4.3 5.6* CHLORIDE - [facility] mmol/L -- 101 101 100 CO2 - [facility] mmol/L -- 23 21* 21* BUN - [facility] mg/dL -- 20 26* 42* CREATININE - [facility] mg/dL 1.3* 1.4* 1.3* 2.5* ESTIMATED GLOMERULAR FILTRATION RATE - [facility] mL/min 47* 45* 48* 22* Recent Labs Units 09/15/23 0815 06/19/23 1111 07/15/22 0835 HGB g/dL 12.5 12.7 12.6 Recent Labs Units 12/13/23 1112 11/24/23 0814 11/14/23 1556 10/13/23 0815 06/19/23 1111 05/05/23 0808 CALCIUM - [facility] mg/dL 9.1 9.4 9.5 9.2 < > 8.8 PHOSPHORUS - [facility] mg/dL -- 3.9 -- 4.7 -- -- 25-HYDROXY VITAMIN D - [facility] ng/mL -- -- 55 -- -- 20 < > = values in this interval not displayed. Recent Labs Units 09/15/23 0815 05/05/23 0808 07/15/22 0835 HEMOGLOBIN A1C - [facility] % 5.2 5.1 5.5 Recent Labs Units 11/24/23 0814 10/13/23 0823 05/05/23 0808 ALBUMIN/CREATININE RATIO, HIDE mg/g Creat -- Uninterpretable Albumin/Creatinine ratio due to very low albumin and creatinine values. -- ALBUMIN / CREATININE RATIO, URINE - [facility] mg/g Creat -- -- <20 PROTEIN/ CREATININE RATIO, URINE - [facility] mg/g 96 -- -- ASSESSMENT: Stage 3b chronic kidney disease (HCC) (Primary) Chronic kidney disease stage 3 with recent fluctuation. Events of with [facility] and then Admission for COPD/CHF/Pneumonia few weeks after stopping diuretics noted. Most likely etiology of underlying CKD is severe hypertension and severe Atherosclerotic dz. On top of that she also has some cardiac and pulmonary diseases and on multiple medications affecting renal perfusion. It is good to see that creatinine did got better from 2.5 to 1.3 on repeat tests. No need of labs today Continue same meds. We will do labs as below for CKD baseline within next few months. Labs as below to be done few days after her vascular procedure. Her risk of ESRD is moderately high erven though her current creat looks fine. - CBC WITH WBC DIFFERENTIAL; Future; Expected date: 04/08/2024 - PTH; Future; Expected date: 04/08/2024 - RENAL FUNCTION PANEL; Future; Expected date: 04/08/2024 - PROTEIN/ CREATININE RATIO, URINE; Future; Expected date: 04/08/2024 - URINALYSIS WITH MICROSCOPIC EXAM; Future; Expected date: 04/08/2024 - 25-HYDROXY VITAMIN D; Future; Expected date: 04/08/2024 HTN, goal below 140/90 Blood pressure still not fully goal even though she is on 6 medicines. No longer on aldactone afterAKI/high K in . Maybe after the vascular surgery her BP will get better. Follow Up: Return in about 6 months (around 10/09/2024) for Clinic Visit. | For: Clinic Visit | Check-out note: Few days after the Aortic Surgery Brad Johnson MD documented in this encounter Nursing Notes * Lisa Carolina LPN - 04/08/2024 2:02 PM EDT Patient identified by verbal name and date of .No recent inpatient hospital stays or ED visit No surgery Denies SOB but notes some edema to bilateral ankles Last labs Creatine 04/02/24 BMP 12/13/23 documented in this encounter Plan of Treatment Upcoming Encounters Date Type Department Care Team (Late st Contact Info) Description 04/23/2024 3:00 PM EDT Imaging Radiology [address] 132 [facility] [place] [address] 04/23/2024 3:30 PM EDT Imaging Radiology [address] 132 [facility] [place] [address] 05/07/2024 2:10 PM EDT Office Visit Vascular Surgery, [facility] [address] [facility] [place] [address] Sanjiv Wolf MD [address] [place] [address] 08/04/2024 10:00 AM EST Office Visit Gynecology/Obstetrics [facility] 132 [facility] [place] [address] Nathalia Guerrero PA-C 132 [facility] [place] [address] 09/15/2024 10:40 AM EST Office Visit [facility] [address] [place] [phone] Stefany Benitez MD [address] [place] [address] 10/14/2024 9:30 AM EST Office Visit Cardiology, [facility] 132 [place] [address] Daniel Cuevas, 132 [facility] [place] [address] 12/02/2024 2:40 PM EST Office Visit Nephrology, [facility] [place] [address] Brad Johnson MD [address] [facility] [place] [address] Scheduled Orders Name Type Priority Associated Diagnoses Orde r Schedule CBC WITH WBC DIFFERENTIAL Lab Routine Stage 3b chronic kidney disease (HCC) Expected: 04/08/2024 (Approximate), Expires: 10/05/2024 PTH Lab Routine Stage 3b chronic kidney disease (HCC) Expected: 04/08/2024 (Approximate), Expires: 10/05/2024 RENAL FUNCTION PANEL Lab Routine Stage 3b chronic kidney disease (HCC) Expected: 04/08/2024 (Approximate), Expires: 10/05/2024 PROTEIN/ CREATININE RATIO, URINE Lab Routine Stage 3b chronic kidney disease (HCC) Expected: 04/08/2024 (Approximate), Expires: 10/05/2024 URINALYSIS WITH MICROSCOPIC EXAM Lab Routine Stage 3b chronic kidney disease (HCC) Expected: 04/08/2024 (Approximate), Expires: 10/05/2024 25-HYDROXY VITAMIN D Lab Routine Stage 3b chronic kidney disease (HCC) Expected: 04/08/2024 (Approximate), Expires: 10/05/2024 Scheduled Procedures Name Priority Associated Diagnoses Date/Ti [...] history exists Depression Monitoring 09/27/2024 09/27/2023 GFR 04/02/2025 04/02/2024, 11/29, 11/24/2023, Additional history exists Mammogram 04/07/2025 04/07/2024, 04/01, 04/27/2023, Additional history exists O2 ASSESSMENT COMPLETED IN PAST YEAR FOR COPD 04/08/2025 04/08/2024 DXA Scan 06/05/2025 06/05/2023, 06/05/2023 Pap Smear 05/01/2026 05/01/2023, 04/01, 02/06/2017, Additional history exists Colonoscopy 08/03/2026 08/03/2016, 08/03/2016 Colorectal Cancer Screening 08/03/2026 Albumin/Creatinine Ratio 10/13/2026 10/13/2023, 08/0 01/2023 Cervical Cancer Screening 05/01/2028 HPV/Co-Test 05/01/2028 05/01/2023 *COPD SEVERITY VERIFIED BY PFT Addressed 08/01/2017 (Done elsewhere) Overridden with the intention of not completing the topic Pneumococcal Vaccine: Pediatrics (0 to 5 Years) and At-Risk Patients (6 to 64 Years) Completed 05/01/2023, 10/09/2015 VITAMIN D LEVEL ONCE IN A LIFETIME-USE SMARTSET# [id number] Completed 11/14/2023, 05/05/2023, 08/16/2017, Additional history exists HPV (Gardasil) Vaccine Aged Out No lo nger eligible based on patient's age to complete this topic MENINGOCOCCAL (MENACTRA/MENVEO) Aged Out No longer eligible based on patient's age to complete this topic documented as of this encounter Medical Devices Not on filedocumented as of this encounter Visit Diagnoses Diagnosis Stage 3b chronic kidney disease (HCC)- Primary documented in this encounter Advance Directives * [...] Power of Attor jazlyn? No Care Teams Internet Specialist Relationship Specialty Start Date End Date Stefany Benitez MD [address] [facility] [place] [address] PCP - General Family Medicine 04/25/22 documented as of this encounter
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
--- OUTSIDE RECORDS SUMMARY | 2024-05-27 09:19 | External Medical Summary | Summary of Care ---
Author Name Unknown Organization [facility] Address [address] [place] [address] Phone [phone] Care Team Providers Care Marketing Community Liaison Name Role Phone Stefany Benitez MD Primary Care Provid er Encounter Details Date Type Department Care Team (Late st Contact Info) Description 2024 Population Health External Data Unspecified Department Allergies Active Allergy Reactions Criticality Noted Date [...] by mouth in the morning. Active Umeclidinium [place] 62.5 MCG/ACT Inhalation Aerosol Powder Breath Activated [...] Wheezing or Cough. Active D3-50 1.25 MG (96773 UT) Oral Capsule (Cholecalciferol)Maureen cations:Age-related osteoporosis without [...] 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 [id number] mutation Heterozygous factor V Leiden mutation 09/30/2014 [...] (Moderna) 01/20/2021,12/23/2020 Pneumococcal Conjugate Vacci ne, 20-valent ([id number]) 05/01/2023 Pneumococcal Polysaccharide PPV23 (Pneumovax) 10/09/2015 Seasonal [...] 2:10 PM EDT Office Visit Vascular Surgery, [facility] [address] [facility] [place] [address] Sanjiv Wolf MD [address] [place] [address] 08/04/2024 10:00 AM EST Office Visit Gynecology/Obstetrics [facility] [address] [facility] [place] [address] Nathalia Guerrero PA-C [address] [facility] [address] 09/15/2024 10:40 AM EST Office Visit Family [facility] [address] [place] [id number] Stefany Benitez MD [address] [place] [address] 10/14/2024 9:30 AM EST Office Visit Cardiology, [facility] [address] [facility] [place] [address] Daniel Cuevas, DO [address] [place] [address] 12/02/2024 2:40 PM EST Office Visit Nephrology, [facility] [address] [facility] [place] [address] Brad Johnson MD [address] [facility] [place] [address] Scheduled Procedures Name Priority Associated Diagnoses Date/Ti [...] Additional history exists Albumin/Creatinine Ratio 10/13/2024 10/13/2023, 0801/2023 Mammogram 04/07/2025 04/07/2024, 0705/2024, 04/27/2023, Additional history exists O2 ASSESSMENT COMPLETED [...] D LEVEL ONCE IN A LIFETIME-USE SMARTSET# [id number] Completed 11/14/2023, 05/05/2023, 08/16/2017, Additional history exists [...] Power of Attor jazlyn? No Care Teams Marketing Community Liaison Relationship Specialty Start Date End Date Stefany Benitez MD [address] [place] [address] PCP - General Family Medicine 04/25/22 documented as of this encounter
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
--- OUTSIDE RECORDS SUMMARY | 2024-05-27 09:19 | External Medical Summary | Summary of Care ---
Author Name Unknown Organization [facility] Address [address] [place] [address] Phone [phone] Care Team Providers Care Furniture Painter Name Role Phone Stefany Benitez MD Primary Care Provid er Reason for Referral * Evaluate & Treat - Unlimited Visits (Within 10 days (routine)) - Authorized Specialty Diagnoses / Procedures Referred By Rodriguez mcelroy Referred To Contact Pulmonary Diseases / Pulmonary Diagnoses Pulmonary nodule Sam Fuller PA-C [address] [place] [address] Referral ID Status Reason Start Date Expiration Date Visits Requested Visits Authorized [id number] Authorized Specialty Services Required 04/24/2024 999 999 Question Answer Referral Priority Within 10 Days (Routine) Primary Reason for Referral? Lung Nodule/Mass Reason for Visit * Reason Onset Date Comments Test Results 04/24/2024 Unexpected or In determinate Result Encounter Details Date Type Department Care Team (Late st Contact Info) Description 04/24/2024 Telephone Vascular Surg [facility] [address], [place] [id number] Sam Fuller PA-C [address], [place] [phone] Test Results (Unexpected or Indeterminate ... Allergies Active Allergy Reactions Criticality Noted Date [...] as of this encounter (statuses as of 04/24/2024) Medications Medication Sig Dispensed Refills Start Date [...] by mouth in the morning. Active Umeclidinium [place] 62.5 MCG/ACT Inhalation Aerosol Powder Breath Activated [...] Wheezing or Cough. 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 Condyloma acuminatum Moderate COPD (chronic obstructive pulmonary dis ease) Overview: Dr Peoples Gastroesophageal reflux disease without esophagi tis Depression with anxiety documented as of this encounter (statuses as of 04/24/2024) Resolved Problems Problem Noted Date Diagnosed Date [...] as of this encounter (statuses as of 04/24/2024) Immunizations Name Administration Dates Next Due COVID-19 mRNA, LNP-s, No Pre serve, 2-Dose Series (Moderna) 01/20/2021,12/23/2020 Pneumococcal Conjugate Vacci ne, 20-valent ([id number]) 05/01/2023 Pneumococcal Polysaccharide PPV23 (Pneumovax) 10/09/2015 Seasonal [...] 18 years and over) Not on file 3 Are you (or your family) danii eless [...] encounter Miscellaneous Notes * Telephone Encounter - Sam Fuller PA-C - 04/24/2024 5:01 PM EDT Aware, placed consult with [facility] Pulm Nodule AI program * Telephone Encounter - Geovanna Varela OSA - 04/24/2024 4:34 PM EDT Hello- The radiologist discovered an unexpected or indeterminate finding on Melissa Carpenter ([id number]) and asks that you review the following report. Study Type: CTA CHEST NON-CORONARY W CONTRAST Date of Study: 04/23/24 IMPRESSION 1. Severe calcified atheromatous disease results in near occlusion of the suprarenal abdominal aorta with multifocal areas of reconstitution, about the level of the renal arteries. Severe calcified atheromatous disease again noted in the infrarenal abdominal aorta resulting in severe stenosis/near occlusion overall findings are grossly unchanged since at least 12/06/2023. 2. Severe calcified atheromatous disease results in greater than 75% luminal narrowing/near occlusion of the bilateral common iliac arteries. 3. Solid pulmonary nodule in the left lower lobe measuring up to 0.8 cm. Ground- glass nodule at theleft lung base measuring up to 0.[address] thorax in 6 months is recommended to evaluate for stability. 4. Multi station mediastinal and right hilar lymphadenopathy, nonspecific and grossly stable from prior examination. 5. Ground-glass opacity in the right middle lobe, likely infectious/inflammatory, attention on follow-up imaging. Please respond to this encounter to acknowledge receipt of this message and take responsibility to ensure this report is reviewed. Thank you, YOLIS Abdi Client Service Rep Diagnostic Medicine T[place] documented in this encounter Plan of Treatment Upcoming Encounters Date Type Department Care Team (Late st Contact Info) Description 05/07/2024 2:10 PM EDT Office Visit Vascular Surgery, [facility] 132 [facility] [place] [address] Sanjiv Wolf MD [address] [place] [address] 08/04/2024 10:00 AM EST Office Visit Gynecology/Obstetrics [facility] [address] [facility] [place] [address] Nathalia Guerrero PA-C [address] [facility] [place] [address] 09/15/2024 10:40 AM EST Office Visit [facility] [address] [place] [facility] [phone] Stefany Benitez MD [address] [place] [address] 10/14/2024 9:30 AM EST Office Visit Cardiology, [facility] [address] [place] [address] Daniel Cuevas DO [address] [facility] [address] 12/02/2024 2:40 PM EST Office Visit Nephrology, [facility] 200 [facility] [place] [address] Brad Johnson MD 200 [facility] [place] [address] Scheduled Procedures Name Priority Associated Diagnoses Date/Ti me COLONOSCOPY FLEXIBLE PROXIMA L DIAGNOSTIC Recall Encounter for screening colonoscopy Scheduled Referrals Name Type Priority Associated Diagnoses Order Schedule STAIR LUNG NODULE REFERRAL OP (SYSTEM FOR TRACKING ABNORMALITIES OF IMPORTANCE RELIABLY) Referral Within 10 days (routine) Pulmonary nodule Ordered: 04/24/2024 Health Maintenance Due Date Last Done Comments [...] 10/13/2024 10/13/2023, 08/0 01/2023 Mammogram 04/07/2025 04/07/2024, 07/0 05/2024, 04/27/2023, Additional [...] D LEVEL ONCE IN A LIFETIME-USE SMARTSET# [id number] Completed 11/14/2023, 05/05/2023, 08/16/2017, Additional history exists HPV (Gardasil) Vaccine Aged Out No lo nger eligible based on patient's age to complete this topic MENINGOCOCCAL (MENACTRA/MENVEO) Aged Out No longer eligible based on patient's age to complete this topic documented as of this encounter Medical Devices Not on filedocumented as of this encounter Visit Diagnoses Diagnosis Pulmonary nodule- Primary Solitary pulmonary nodule documented in this encounter Advance Directives * [...] of Attor jazlyn? No Care Teams Furniture Painter Relationship Specialty Start Date End Date Stefany Benitez MD [address] [place] [address] PCP - General Family Medicine 04/25/22 documented as of this encounter
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
--- OUTSIDE RECORDS SUMMARY | 2024-05-27 09:20 | External Medical Summary | Summary of Care ---
Author Name Unknown Organization [facility] Address [address] [facility] [place] [address] Phone [phone] Care Team Providers Care Generator Man Name Role Phone Stefany Benitez MD Primary Care Provid er Reason for Referral * Precert (Within 10 days (routine)) - Authorized Specialty Diagnoses / Procedures Referred By Contac t Referred To Contact Cardiac Studies Diagnoses Preoperative cardiovascular examination Equivocal stress test Procedures ECHO, STRESS (DOBUTAMINE) W/ PHYSICIAN Daniel Cuevas DO [address] [place] [address] Referral ID Status Reason Start Date Expiration Date V isits Requested Visits Authorized [id number] Authorized Precert 03/06/2024 999 999 Reason for Visit * Reason Onset Date Comments Follow Up 03/05/2024 Encounter Details Date Type Department Care Team (Late st Contact Info) Description 03/05/2024 Telephone Cardiology, [facility] [address] [place] [address] Daniel Cuevas DO [address] [place] [address] Follow Up (/) Allergies Active Allergy Reactions Criticality Noted Date [...] as of this encounter (statuses as of 03/10/2024) Medications Medication Sig Dispensed Refills Start Date [...] by mouth in the morning. Active Umeclidinium [place] 62.5 MCG/ACT Inhalation Aerosol Powder Breath Activated (INCRUSE ellipta) Inhale 1 Puff by mouth in the morning. Active amLODIPine Besylate 10 MG Oral Tablet (Norvasc)Indications: HTN, goal below 140/90 TAKE 1 TABLET BY MOUTH ONCE DAILY 90 Tablet 3 06/22/2023 Active Terazosin HCl 2 MG Oral Capsule Take 1 Capsule by mouth at bedtime. 90 Capsule 3 07/04/2023 Active hydrALAZINE HCl 50 MG [...] Wheezing or Cough. Active D3-50 1.25 MG (29487 UT) Oral Capsule (Cholecalciferol)Maureen cations:Age-related osteoporosis without current pathological fracture,Hypovitamino sis D Take 1 Capsule by mouth once a week. 12 Capsule 12/18/2023 Active Additional Information Patient not taking.Reported on 03/05/2024 Entresto 97-103 MG Oral Tablet (sacubitril-valsartan 97-103 mg per tab) Take 1 Tablet by mouth in the morning and 1 Tablet before bedtime. 180 Tablet 3 01/29/2024 Active Furosemide 40 MG Oral Tablet (Lasix) Take 1 Tablet by mouth in the morning. 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 Condyloma acuminatum Moderate COPD (chronic obstructive pulmonary dis ease) Overview: Dr Peoples Gastroesophageal reflux disease without esophagi tis Depression with anxiety documented as of this encounter (statuses as of 03/10/2024) Resolved Problems Problem Noted Date Diagnosed Date [...] as of this encounter (statuses as of 03/10/2024) Immunizations Name Administration Dates Next Due COVID-19 mRNA, LNP-s, No Pre serve, 2-Dose Series (Moderna) 01/20/2021,12/23/2020 Pneumococcal Conjugate Vacci ne, 20-valent ([id number]) 05/01/2023 Pneumococcal Polysaccharide PPV23 (Pneumovax) 10/09/2015 Seasonal [...] encounter Miscellaneous Notes * Telephone Encounter - Bhavik Thomason OSA - 03/06/2024 8:44 AM EDT Patient has been called and she is aware of the date and time for the testing. Mar Appt at 10:35 AM (1 hr 10 min) [facility] [employer] CONSULTANT 1 GW * Telephone Encounter - Daniel Cuevas DO - 03/05/2024 7:03 PM EDT I called the patient to review the results of her nuclear stress test. Stress test performed as a preoperative evaluation prior to complex vascular surgery for occlusion of her distal abdominal aorta. Stress test is felt to be equivocal due to artifact. I recommend proceeding with a dobutamine stress echocardiogram. Patient unable to ambulate sufficiently on the treadmill. Her most recent complete resting echocardiogram took place at [facility] on 12/04/2023 with findings of mild concentric left ventricular hypertrophy, LVEF in the range of 55 to 60%, mild mitral regurgitation, and a trivial circumferential pericardial effusion without hemodynamic significance noted. Patient agreeable to dobutamine stress echocardiogram, and is looking forward to having it scheduled. documented in this encounter Plan of Treatment Upcoming Encounters Date Type Department Care Team (Late st Contact Info) Description 03/13/2024 10:35 AM EDT Imaging Cardiac Studies, [facility] [address] [facility] [place] [address] 03/14/2024 11:40 AM EDT Office Visit [facility] [place] [address] [place] [phone] Stefany Benitez MD [address] [facility] [place] [address] 03/21/2024 8:30 AM EDT Office Visit Cardiology, [facility] [address] [place] [place] [address] Joan Hampton CRNP 132 [facility] [place] [address] 04/02/2024 1:00 PM EDT [facility] [address] [facility] [place] [address] 04/02/2024 2:10 PM EDT Office Visit Vascular Surgery, [facility] [address] [facility] [place] [address] Sanjiv Wolf MD [address] [place] [address] 04/07/2024 4:15 PM EDT Imaging Radiology [facility] 1st [facility] [address] [facility] [place] [address] 06/30/2024 2:40 PM EDT Office Visit Nephrology, [facility] [address] [place] [address] Brad Johnson MD [address] [facility] [place] [address] 08/04/2024 10:00 AM EST Office Visit Gynecology/Obstetrics [facility] [address] [facility] [place] [address] Nathalia Guerrero PA-C [address] [facility] [place] [address] Scheduled Orders Name Type Priority Associated Diagnoses Orde r Schedule ECHO, STRESS (DOBUTAMINE) W/ PHYSICIAN Echocardiology Routine Preoperative cardiovascular examination Equivocal stress test Expected: 03/06/2024, Expires: 09/04/2024 Scheduled Procedures Name Priority Associated Diagnoses Date/Ti [...] ASSESSMENT COMPLETED IN PAST YEAR FOR COPD 12/12/2024 12/13/2023 DXA Scan 06/05/2025 06/05/2023, 06/05/2023 Pap Smear [...] D LEVEL ONCE IN A LIFETIME-USE SMARTSET# [id number] Completed 11/14/2023, 05/05/2023, 08/16/2017, Additional history exists GARDASIL-HPV IMMUNIZATION SERIES Aged Out No longer eligible based on patient's age to complete this topic MENINGOCOCCAL (MENACTRA/MENVEO) Aged Out No longer eligible based on patient's age to complete this topic documented as of this encounter Medical Devices Not on filedocumented as of this encounter Visit Diagnoses Diagnosis Preoperative cardiovascular examination- Primary Pre-operative cardiovascular examination Equivocal stress test Other nonspecific abnormal cardiovascular system function study documented in this encounter Advance Directives * [...] Power of Attor jazlyn? No Care Teams Generator Man Relationship Specialty Start Date End Date Stefany Benitez MD [address] [place] [address] PCP - General Family Medicine 04/25/22 documented as of this encounter
--- OUTSIDE RECORDS SUMMARY | 2024-05-27 09:20 | External Medical Summary | Summary of Care ---
Author Name Unknown Organization [facility] Address [address] [place] [place] [facility] [place] [address] Phone [phone] Care Team Providers Care Stained Glass Installer Name Role Phone Stefany Benitez MD Primary Care Provid er Encounter Details Date Type Department Care Team (Late st Contact Info) Description 03/24/2024 Population Health External Data Unspecified Department Allergies [...] as of this encounter (statuses as of 03/25/2024) Medications Medication Sig Dispensed Refills Start Date [...] by mouth in the morning. Active Umeclidinium [place] 62.5 MCG/ACT Inhalation Aerosol Powder Breath Activated [...] Wheezing or Cough. 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 Condyloma acuminatum Moderate COPD (chronic obstructive pulmonary dis ease) Overview: Dr Peoples Gastroesophageal reflux disease without esophagi tis Depression with anxiety documented as of this encounter (statuses as of 03/25/2024) Resolved Problems Problem Noted Date Diagnosed Date [...] as of this encounter (statuses as of 03/25/2024) Immunizations Name Administration Dates Next Due COVID-19 mRNA, LNP-s, No Pre serve, 2-Dose Series (Moderna) 01/20/2021,12/23/2020 Pneumococcal Conjugate Vacci ne, 20-valent ([id number]) 05/01/2023 Pneumococcal Polysaccharide PPV23 (Pneumovax) 10/09/2015 Seasonal [...] 04/02/2024 1:00 PM EDT Imaging Vascular Lab, [facility] [address] [facility] [address] [place] [address] 04/02/2024 2:10 PM EDT Office Visit Vascular Surgery, [facility] [address] [place] [address] Sanjiv Wolf MD [address] [facility] [address] 04/07/2024 4:15 PM EDT Imaging Radiology [facility] [address] [facility] [address] [place] [address] 04/08/2024 2:00 PM EDT Office Visit Nephrology, [facility] [address] [place] [address] Brad Johnson MD [address] [facility] [place] [address] 08/04/2024 10:00 AM EST Office Visit Gynecology/Obstetrics [facility] [address] [place] [address] Nathalia Guerrero PA-C [address] [place] [address] 09/15/2024 10:40 AM EST [address] [phone] Stefany Benitez MD [address] [place] [address] 10/14/2024 9:30 AM EST Office Visit Cardiology, [facility] [address] [place] [address] Daniel Cuevas, [address] [place] [address] Scheduled Procedures Name Priority Associated Diagnoses Date/Ti [...] D LEVEL ONCE IN A LIFETIME-USE SMARTSET# [id number] Completed 11/14/2023, 05/05/2023, 08/16/2017, Additional history exists [...] Power of Attor jazlyn? No Care Teams Stained Glass Installer Relationship Specialty Start Date End Date Stefany Benitez MD [address] [place] [address] PCP - General Family Medicine 04/25/22 documented as of this encounter
--- OUTSIDE RECORDS SUMMARY | 2024-05-27 09:20 | External Medical Summary | Summary of Care ---
Author Name Unknown Organization [facility] Address [address] [facility] [place] [address] Phone [phone] Care Team Providers Care Editor Magazine Name Role Phone Stefany Benitez MD Primary Care Provid er Reason for Visit * Reason Comments Outpatient Testing Encounter Details Date Type Department Care Team (Late st Contact Info) Description 04/02/2024 3:00 PM EDT Laboratory Laboratory, [facility] [address] [phone] [facility] 132 [place] [address] Abdominal aortic stenosis; PVD (peripheral vascular disease) ([facility]) Allergies Active Allergy Reactions Criticality Noted Date [...] by mouth in the morning. Active Umeclidinium [place] 62.5 MCG/ACT Inhalation Aerosol Powder Breath Activated [...] Wheezing or Cough. Active D3-50 1.25 MG (65404 UT) Oral Capsule (Cholecalciferol)Maureen cations:Age-related osteoporosis without [...] 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 [id number] mutation Heterozygous factor V Leiden mutation 09/30/2014 [...] and miriam Nodule of left lung 08/17/2015 12/11/20 15 DVT prophylaxis 10/02/2014 10/23/2014 Screening cholesterol [...] (Moderna) 01/20/2021,12/23/2020 Pneumococcal Conjugate Vacci ne, 20-valent ([id number]) 05/01/2023 Pneumococcal Polysaccharide PPV23 (Pneumovax) 10/09/2015 Seasonal [...] Description 04/07/2024 4:15 PM EDT Imaging Radiology [address] 132 [facility] [address] 04/08/2024 2:00 PM EDT Office Visit Nephrology, [facility] [address] [place] [address] Brad Johnson MD 200 [facility] [place] [address] 04/23/2024 3:00 PM EDT Imaging Radiology [address] 132 [facility] [place] [address] 04/23/2024 3:30 PM EDT Imaging Radiology [address] 132 [facility] [place] [address] 05/07/2024 2:10 PM EDT Office Visit Vascular Surgery, [facility] 132 [facility] [place] [address] Sanjiv Wolf MD [address] [place] [address] 08/04/2024 10:00 AM EST Office Visit Gynecology/Obstetrics [facility] [address] [place] [address] Nathalia Guerrero PA-C [address] [place] [address] 09/15/2024 10:40 AM EST Office Visit Family [facility] [address] [place] [address] Stefany Benitez MD [address] [place] [address] 10/14/2024 9:30 AM EST Office Visit Cardiology, [facility] [address] [place] [address] Daniel Cuevas DO [address] [place] [address] Pending Results Name Type Priority Associated Diagnoses Date /Time CREATININE Lab Routine Abdominal aortic stenosis PVD (peripheral vascular disease) (HCC) 04/02/2024 2:55 PM EDT Scheduled Procedures Name Priority Associated [...] D LEVEL ONCE IN A LIFETIME-USE SMARTSET# [id number] Completed 11/14/2023, 05/05/2023, 08/16/2017, Additional history exists HPV (Gardasil) Vaccine Aged Out No lo nger eligible based on patient's age to complete this topic MENINGOCOCCAL (MENACTRA/MENVEO) Aged Out No longer eligible based on patient's age to complete this topic documented as of this encounter Medical Devices Not on filedocumented as of this encounter Visit Diagnoses Diagnosis Abdominal aortic stenosis Congenital atresia and stenosis [...] Power of Attor jazlyn? No Care Teams Editor Magazine Relationship Specialty Start Date End Date Stefany Benitez MD [address] [place] [address] PCP - General Family Medicine 04/25/22 documented as of this encounter
--- OUTSIDE RECORDS SUMMARY | 2024-05-27 09:20 | External Medical Summary ---
Author Name Unknown Address Unknown Organization K0G[facility] [address] [place] [address] Laboratory Report Ordering Provider Test Date Status BRYANT BRANDON 04/02/2024 14:55:35 Final Observation Date Value Abnormality Reference (Units ) Status Creatinine 04/02/2024 14:55:35 1.3 Above high normal 0.5-1.0 (mg/dL) Final Glomerular filtration rate/1.73 sq M.predicted [Volume Rate/Area] in Serum, Plasma or Blood by Creatinine-based formula (CKD-EPI) 04/02/2024 14:55:35 47 Below low normal >=60 (mL/min) Final eGFR is calculated based on the CKD-EPI 2020 equation Performing Location [facility] [place] [address] [place] [address]
--- OUTSIDE RECORDS SUMMARY | 2024-05-27 09:20 | External Medical Summary | Summary of Care ---
Author Name Unknown Organization [facility] Address [address] [place] [address] Phone [phone] Care Team Providers Care Palliative Medicine Physician Name Role Phone Stefany Benitez MD Primary Care Provid er Encounter Details Date Type Department Care Team (Latest Contact Info) Description 03/05/2024 Medication Management [facility] [address] [place] [address] [facility] [address] [place], [place] [id number] Referred for management of medication therapy* Allergies Active Allergy Reactions Criticality Noted Date [...] as of this encounter (statuses as of 03/06/2024) Medications Medication Sig Dispensed Refills Start Date [...] by mouth in the morning. Active Umeclidinium [place] 62.5 MCG/ACT Inhalation Aerosol Powder Breath Activated (INCRUSE ellipta) Inhale 1 Puff by mouth in the morning. Active amLODIPine Besylate 10 MG Oral Tablet (Norvasc)Indication s:HTN, goal below 140/90 TAKE 1 TABLET BY MOUTH ONCE DAILY 90 Tablet 3 3 Active Terazosin HCl 2 MG Oral Capsule Take 1 Capsule by mouth at bedtime. 90 Capsule 3 3 Active hydrALAZINE HCl 50 MG [...] Wheezing or Cough. Active D3-50 1.25 MG (89316 UT) Oral Capsule (Cholecalciferol)In dications:Age-relat ed osteoporosis without current pathological fracture,Hypovitami nosis D Take 1 Capsule by mouth once a week. 12 Capsule 4 Active Additional Information Patient not taking.Reported on 03/05/2024 Entresto 97-103 MG Oral Tablet (sacubitril-valsart an 97-103 mg per tab) Take 1 Tablet by mouth in the morning and 1 Tablet before bedtime. 180 Tablet 3 4 Active Furosemide 40 MG Oral Tablet (Lasix) Take 1 Tablet by mouth in the morning. 90 Tablet 3 4 Active Benzonatate 100 MG Oral Capsule (Tessalon Perles) Take 1 Capsule by mouth 3 times a day as needed for Cough. 03/05/20 24 Discontinued guaiFENesin ER 600 MG Oral Tablet Extended Release 12 Hour (Humibid LA) Take 2 Tablets by mouth in the morning and 2 Tablets before bedtime. 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 Condyloma acuminatum Moderate COPD (chronic obstructive pulmonary dis ease) Overview: Dr Peoples Gastroesophageal reflux disease without esophagi tis Depression with anxiety documented as of this encounter (statuses as of 03/06/2024) Resolved Problems Problem Noted Date Diagnosed Date [...] as of this encounter (statuses as of 03/06/2024) Immunizations Name Administration Dates Next Due COVID-19 mRNA, LNP-s, No Pre serve, 2-Dose Series (Moderna) 01/20/2021,12/23/2020 Pneumococcal Conjugate Vacci ne, 20-valent ([id number]) 05/01/2023 Pneumococcal Polysaccharide PPV23 (Pneumovax) 10/09/2015 Seasonal [...] as of this encounter Progress Notes * Gerson Allison, [facility] - 03/06/2024 11:36 AM EDT Melissa Carpenter is a 58 year old female. Objective: Review of patient's allergies indicates: Allergen Reactions Anoro Ellipta [Umeclidinium-Vilanterol] Body swelling Skelaxin [Metaxalone] Unknown Symbicort [Budesonide-Formoterol Fumarate] Increased wheezing and swelling Zoloft [Sertraline Hcl] Diarrhea Amoxicillin-Pot Clavulanate Nausea/vomiting Avelox [Moxifloxacin Hcl In Nacl] Hives Bactrim [Sulfa Antibiotics] Hives Erythromycin Base Nausea/vomiting Morphine And Codeine Rash Tolerated Percocet Neomycin Other (Please comment) local reaction to eardrops Tetracycline Nausea/vomiting Current Outpatient Medications - WARNING: List may be incomplete due to filtering Medication Sig Dispense Refill Entresto 97-103 MG Oral Tablet (sacubitril-valsartan 97-103 mg per tab) Take 1 Tablet by mouth in the morning and 1 Tablet before bedtime. 180 Tablet 3 Furosemide 40 MG Oral Tablet (Lasix) Take 1 Tablet by mouth in the morning. 90 Tablet 3 Ipratropium-Albuterol 0.5-2.5 (3) MG/3ML Inhalation Solution (Duoneb) Inhale 3 mL by mouth 4 times a day as needed for Dyspnea, Wheezing or Cough. Carvedilol 25 MG Oral Tablet (Coreg) TAKE ONE TABLET BY MOUTH IN THE MORNING AND ONE BEFORE [id number] Tablet 3 Alendronate Sodium 70 MG Oral Tablet (Fosamax) Take 1 Tablet by mouth once a week. with 8 oz. water30 minutes before first meal of the day. Remain upright for 30 min after taking tablet. 15 Tablet 3 Cephalexin 500 MG Oral Capsule Take 4 caps 1 hour prior to dental appointment. 4 Capsule 0 Atorvastatin Calcium 20 MG Oral Tablet (Lipitor) TAKE 1 TABLET BY MOUTH ONCE DAILY 90 Tablet 3 hydrALAZINE HCl 50 MG Oral Tablet (Apresoline) Take 1 Tablet by mouth in the morning and 1 Tablet at noon and 1 Tablet before bedtime. 252 Tablet 3 Terazosin HCl 2 MG Oral Capsule Take 1 Capsule by mouth at bedtime. 90 Capsule 3 amLODIPine Besylate 10 MG Oral Tablet (Norvasc) TAKE 1 TABLET BY MOUTH ONCE DAILY 90 Tablet 3 Umeclidinium [place] 62.5 MCG/ACT Inhalation Aerosol Powder Breath Activated (INCRUSE ellipta) Inhale 1 Puff by mouth in the morning. PARoxetine HCl 40 MG Oral Tablet (pAXil) Take 1 Tablet by mouth in the morning. Acetaminophen ER 650 MG Oral Tablet Extended Release Take 1 Tablet by mouth every 8 hours as needed. Cetirizine HCl 10 MG Capsule Take 1 Capsule by mouth in the morning. ARIPiprazole (ABILIFY) 5 MG Tablet Take 1 Tab by mouth daily. 30 Tab 0 Aspirin 81 MG Tablet Take 1 Tab by mouth daily. 34 Tab 5 clonazePAM (KLONOPIN) 0.5 MG Tablet Take 1 Tab by mouth 2 times a day as needed for Anxiety. 60 Tab0 albuterol sulfate (PROVENTIL) (2.5 MG/3ML) 0.083% nebulizer solution Inhale 1 Vial via nebulizer every 4 hours as needed for Wheezing. 120 Vial 11 albuterol (PROVENTIL HFA) 108 (90 BASE) MCG/ACT inhaler Inhale 2 Puffs by mouth every 6 hours as needed. D3-50 1.25 MG (82556 UT) Oral Capsule (Cholecalciferol) Take 1 Capsule by mouth once a week. (Patient not taking: Reported on 03/05/2024) 12 Capsule 0 Zoster Vac Recomb Adjuvanted 50 MCG/0.5ML Intramuscular Suspension Reconstituted (Shingrix) Inject 0.5 mL into a large muscle now and repeat dose in 60 to 180 days (Patient not taking: Reported on 11/19/2023) 1 Each 1 Immunization History Administered Date(s) Administered COVID-19 mRNA, LNP-s, No Preserve, 2-Dose Series (Moderna) 12/23/2020, 01/20/2021 Diptheria/Tetanus (Adult) 02/28/1979 OPV - Polio Virus Vaccine (Oral) 02/28/1979 Pneumococcal Conjugate Vaccine, 20-valent ([id number]) 05/01/2023 Pneumococcal Polysaccharide PPV23 (Pneumovax) 10/09/2015 Seasonal Influenza Virus Vaccine, Unspecified Formulation 07/19/2018 Seasonal Influenza, PF, 6 M & above, IM , (FluLaval or Fluzone) 06/17/2019, 07/21/2022 Seasonal Influenza, Quadrivalent Hd (Fluzone Hd) 06/19/2023 Seasonal Influenza, Quadrivalent, No Preserve, IM 07/19/2016, 07/03/2020 Seasonal Influenza, Split, IIV3, With Preserve, Inj 08/10/2009, 09/16/2015, 08/01/2017 TD - Tetanus/Diptheria (ADULT) 07/17/2002 TDAP (age 10 and older)(Boostrix) 10/13/2009 TMR Interventions Incomplete Encounter MTPs No medication therapy recommendations to display Complete Encounter MTPs No medication therapy recommendations to display Assessment & Plan Indication, effectiveness, safety and convenience of her medications were reviewed today. The patient's medical conditions were assessed, evaluated, and deemed meeting goals of drug therapy, with thefollowing exceptions. Additional Notes: Summary Time Spent: 1-15 min Supervising pharmacist who provided the service: Gerson Allison PharmD Takeaway Information Who was the recipient of the CMR service: beneficiary Language Template for the Patient Takeaway: [place]an I attest that I have reviewed and updated the patient's conditions, allergies, and medications to the best of my ability. Patient provided medication list gathered by: Deyvi Johnson RPh 03/06/2024, 11:36 AM documented in this encounter Miscellaneous Notes * MTM Personal Medication List - Gerson Allison RPh - 03/06/2024 11:31 AM EDT Medication How I take it Why I use it Prescriber Acetaminophen ER 650 MG Oral Tablet Extended Release Take 1 Tablet by mouth every 8 hours as needed. Pain Self albuterol (PROVENTIL HFA) 108 (90 BASE) MCG/ACT inhaler Inhale 2 Puffs by mouth every 6 hours as needed. Shortness of Breath P Ralf Louis MD albuterol sulfate (PROVENTIL) (2.5 MG/3ML) 0.083% nebulizer solution Inhale 1 Vial via nebulizer every 4 hours as needed Shortness of Breath P Ralf Louis MD Alendronate Sodium 70 MG Oral Tablet (Fosamax) Take 1 Tablet by mouth once a week. with 8 oz. water30 minutes before first meal of the day. Remain upright for 30 min after taking tablet. Osteoporosis Stefany Benitez MD amLODIPine Besylate 10 MG Oral Tablet (Norvasc) TAKE 1 TABLET BY MOUTH ONCE DAILY High Blood Pressure Joan LockettÓSCAR Whitley ARIPiprazole (ABILIFY) 5 MG Tablet Take 1 Tablet by mouth daily. Mood Saadia Alex PA-C Aspirin 81 MG Tablet Take 1 Tablet by mouth daily. Heart Health Carlyn Day PA-C Atorvastatin Calcium 20 MG Oral Tablet (Lipitor) TAKE 1 TABLET BY MOUTH ONCE DAILY High CholesterolJoan LockettÓSCAR [place] Carvedilol 25 MG Oral Tablet (Coreg) TAKE ONE TABLET BY MOUTH IN THE MORNING AND ONE BEFORE BEDTIMEHeart/High Blood PRessure Joan Parks ÓSCAR [place] Cephalexin 500 MG Oral Capsule Take 4 caps 1 hour prior to dental appointment. Infection PreventionStefany Benitez MD Cetirizine HCl 10 MG Capsule Take 1 Capsule by mouth in the morning. Allergy Self clonazePAM (KLONOPIN) 0.5 MG Tablet Take 1 Tablet by mouth 2 times a day as needed Anxiety P Ralf Louis MD Entresto 97-103 MG Oral Tablet (sacubitril-valsartan 97-103 mg per tab) Take 1 Tablet by mouth in the morning and 1 Tablet before bedtime. Heart Daniel Cuevas DO Furosemide 40 MG Oral Tablet (Lasix) Take 1 Tablet by mouth in the morning. Fluid Retention Daniel Ramos DO hydrALAZINE HCl 50 MG Oral Tablet (Apresoline) Take 1 Tablet by mouth in the morning and 1 Tablet at noon and 1 Tablet before bedtime. Heart/High Blood Pressure Daniel Cuevas DO Ipratropium-Albuterol 0.5-2.5 (3) MG/3ML Inhalation Solution (Duoneb) Inhale 3 mL via nebulizer 4 times a day as needed Shortness of Breath Patrice Louis MD PARoxetine HCl 40 MG Oral Tablet (pAXil) Take 1 Tablet by mouth in the morning. Mood Patrice Louis MD Terazosin HCl 2 MG Oral Capsule Take 1 Capsule by mouth at bedtime. High Blood Pressure Daniel Cuevas DO Umeclidinium [place] 62.5 MCG/ACT Inhalation Aerosol Powder Breath Activated (INCRUSE ellipta) Inhale 1 Puff by mouth in the morning. COPD P Ralf Louis MD * MTM To-Do-List - Gerson Allison RPh - 03/06/2024 11:29 AM EDT Images from the original note were not included. What we talked about: What I should do: The importance of taking your medication as prescribed Your medicine works best when taken as prescribed. It can be hard to remember to take daily medications. Consider making it a part of your daily routine. Pair taking your medication with something you do every day, like brushing your teeth or eating a meal. Consider setting daily alarms to help remind yourself when it is time to take your medicine. Using a pill box can also help you organize your medicines. Pill boxes allow you to fill each day slot with your daily medicine and help you track when your next dose is due. What we talked about: What I should do: Monitoring weight: Weighing yourself daily will help you identify if your heart failure is getting worse. It is recommended that you weigh yourself at the same time every morning (after urinating, but before eating) wearing the same thing. Keep track of your weights on a daily basis. A weight gain of 3 pounds in one day or 5 pounds in one week indicates fluid accumulation and should be a sign to call your doctor. What we talked about: What I should do: Incruse Inhaler Continue to take this medication every day regardless of how you feel. Sometimes itmay feel as though you do not need to take it, but continue to use this medication as prescribed asbetter outcomes for your disease have been observed while using this medication daily. What we talked about: What I should do: PER OUR CONVERSATION AND THE CURRENT CDC RECOMMENDATIONS AND GUIDELINES YOU MAY NEED THE FOLLOWING VACCINATIONS: SHINGLES: 2 DOSE SERIES(Shingrix) spaced 2-4 months apart THESE VACCINES CAN BE OBTAINED AT YOUR LOCAL PHARMACY FOR ZERO COPAY. documented in this encounter Plan of Treatment Upcoming Encounters Date Type Department Care Team (Late st Contact Info) Description 03/13/2024 10:35 AM EDT Imaging [facility], [facility] [place] [address] 03/14/2024 11:40 AM EDT Office Visit [facility] [place] [address] [place] [facility] [place] [phone] Stefany Benitez MD [address] [place] [facility] [place] [address] 03/21/2024 8:30 AM EDT Office Visit Cardiology, [facility] 132 [facility] [place] [address] Joan Hampton CRNP [address] [place] [address] 04/02/2024 1:00 PM EDT [facility] [address] [facility] [place] [address] 04/02/2024 2:10 PM EDT Office Visit Vascular Surgery, [facility] 132 [facility] [place] [address] Sanjiv Wolf MD [address] [place] [address] 04/07/2024 4:15 PM EDT Imaging Radiology [facility] 132 [facility] [place] [address] 06/30/2024 2:40 PM EDT Office Visit Nephrology, [facility] [address] [place] [address] Brad Johnson MD [address] [place] [address] 08/04/2024 10:00 AM EST Office Visit Gynecology/Obstetrics [facility] 132 [facility] [place] [address] Nathalia Guerrero PA-C [address] [place] [address] Scheduled Procedures Name Priority Associated Diagnoses Date/Ti [...] 04/27/2024 04/27/2023, 04/01, 04/05/2023, Additional history exists GFR 12/12/2024 12/13/2023, 11/02, 11/14/2023, Additional history [...] D LEVEL ONCE IN A LIFETIME-USE SMARTSET# [id number] Completed 11/14/2023, 05/05/2023, 08/16/2017, Additional history exists GARDASIL-HPV IMMUNIZATION SERIES Aged Out No longer eligible based on patient's age to complete this topic MENINGOCOCCAL (MENACTRA/MENVEO) Aged Out No longer eligible based on patient's age to complete this topic documented as of this encounter Medical Devices Not on filedocumented as of this encounter Visit Diagnoses Diagnosis Referred for management of medication therapy- Primary Encounter for long-term (current) use of other [...] Power of Attor jazlyn? No Care Teams Palliative Medicine Physician Relationship Specialty Start Date End Date Stefany Benitez MD [address] [place] [address] PCP - General Family Medicine 04/25/22 documented as of this encounter
--- OUTSIDE RECORDS SUMMARY | 2024-05-27 09:20 | External Medical Summary | Summary of Care ---
Author Name Unknown Organization [facility] Address [address] [place] [address] Phone [phone] Care Team Providers Care Die Cast Supervisor Name Role Phone Stefany Benitez MD Primary Care Provid er Reason for Visit * Reason Onset Date Comments Surgery 04/04/2024 Encounter Details Date Type Department Care Team (Late st Contact Info) Description 04/04/2024 Telephone Vascular Surgery, [facility] [address] [place] [address] Sam Fuller PA-C [address] [place] [address] Surgery Allergies Active Allergy Reactions Criticality Noted Date [...] as of this encounter (statuses as of 04/04/2024) Medications Medication Sig Dispensed Refills Start Date [...] by mouth in the morning. Active Umeclidinium [place] 62.5 MCG/ACT Inhalation Aerosol Powder Breath Activated [...] Wheezing or Cough. 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 Condyloma acuminatum Moderate COPD (chronic obstructive pulmonary dis ease) Overview: Dr Peoples Gastroesophageal reflux disease without esophagi tis Depression with anxiety documented as of this encounter (statuses as of 04/04/2024) Resolved Problems Problem Noted Date Diagnosed Date [...] as of this encounter (statuses as of 04/04/2024) Immunizations Name Administration Dates Next Due COVID-19 mRNA, LNP-s, No Pre serve, 2-Dose Series (Moderna) 01/20/2021,12/23/2020 Pneumococcal Conjugate Vacci ne, 20-valent ([id number]) 05/01/2023 Pneumococcal Polysaccharide PPV23 (Pneumovax) 10/09/2015 Seasonal [...] Telephone Encounter - Sam Fuller PA-C - 04/04/2024 8:23 AM EDT I had phone conversation with Dr. Alec Franklin, Pulmonary/Critical Care physician, @ [facility] ([phone]). He is the public health internship for Ms. Carpenter. I relayed to Dr. [...] Sam Fuller PA-C documented in this encounter Plan of Treatment Upcoming Encounters Date Type Department Care Team (Late st Contact Info) Description 04/07/2024 4:15 PM EDT Imaging Radiology [address] 132 [facility] [place] [address] 04/08/2024 2:00 PM EDT Office Visit Nephrology, [facility] [address] [place] [address] Brad Johnson MD [address] [place] [address] 04/23/2024 3:00 PM EDT Imaging Radiology [address] [place] [address] 04/23/2024 3:30 PM EDT Imaging Radiology [address], [place] 132 [facility] [place] [address] 05/07/2024 2:10 PM EDT Office Visit Vascular Surgery, [facility] 132 [facility] [place] [address] Sanjiv Wolf MD [address] [place] [address] 08/04/2024 10:00 AM EST Office Visit Gynecology/Obstetrics [facility] 132 [facility] [place] [address] Nathalia Guerrero PA-C 132 [facility] [address] 09/15/2024 10:40 AM EST Office Visit Family [facility] [address] [place] [phone] Stefany Benitez MD [address] [place] [address] 10/14/2024 9:30 AM EST Office Visit Cardiology, [facility] 132 [facility] [place] [address] Daniel Cuevas, DO [address] [place] [address] Scheduled Procedures Name Priority Associated Diagnoses Date/Ti [...] D LEVEL ONCE IN A LIFETIME-USE SMARTSET# [id number] Completed 11/14/2023, 05/05/2023, 08/16/2017, Additional history exists [...] Power of Attor jazlyn? No Care Teams Die Cast Supervisor Relationship Specialty Start Date End Date Stefany Benitez MD [address] [place] [address] PCP - General Family Medicine 04/25/22 documented as of this encounter
--- OUTSIDE RECORDS SUMMARY | 2024-05-27 09:20 | External Medical Summary | Summary of Care ---
Author Name Unknown Organization [facility] Address [address] [place] [address] Phone [phone] Care Team Providers Care Occasional Caregiver Name Role Phone Stefany Benitez MD Primary Care Provid er Reason for Visit * Reason Comments Follow Up Would like to discus s her sinuses is not sure if she is having allergies or if she has an infection Encounter Details Date Type Department Care Team (Late st Contact Info) Description 03/14/2024 11:40 AM EDT Office Visit [facility] [address] [place] [address] Stefany Benitez MD [address] [place] [address] Hypertensive kidney disease*; Acute frontal sinusitis, recurrence not specified; History of lung cancer; Centrilobular emphysema (HCC); Chronic heart failure with preserved ejection fraction ([facility]); Dyslipidemia, goal LDL below 70; Bipolar affective disorder, remission status unspecified ([facility]) Allergies Active Allergy Reactions Criticality Noted Date [...] as of this encounter (statuses as of 03/14/2024) Medications Medication Sig Dispensed Refills Start Date [...] by mouth in the morning. Active Umeclidinium [place] 62.5 MCG/ACT Inhalation Aerosol Powder Breath Activated [...] Wheezing or Cough. Active D3-50 1.25 MG (49027 UT) Oral Capsule (Cholecalciferol)Maureen cations:Age-related osteoporosis without [...] the morning. 90 Tablet 3 01/29/2024 Active Cephalexin 500 MG Oral CapsuleIndications:Ac [place] frontal sinusitis, recurrence not specified Take 1 Capsule by mouth in the morning and 1 Capsule at noon and 1 Capsule before bedtime. Do all this for 10 days. 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 Condyloma acuminatum Moderate COPD (chronic obstructive pulmonary dis ease) Overview: Dr Peoples Gastroesophageal reflux disease without esophagi tis Depression with anxiety documented as of this encounter (statuses as of 03/14/2024) Resolved Problems Problem Noted Date Diagnosed Date [...] as of this encounter (statuses as of 03/14/2024) Immunizations Name Administration Dates Next Due COVID-19 mRNA, LNP-s, No Pre serve, 2-Dose Series (Moderna) 01/20/2021,12/23/2020 Pneumococcal Conjugate Vacci ne, 20-valent ([id number]) 05/01/2023 Pneumococcal Polysaccharide PPV23 (Pneumovax) 10/09/2015 Seasonal [...] Sign Reading Time Taken Comments Blood Pressure 160/72 03/14/2024 11:42 AM EDT Pulse 71 03/14/2024 11:42 AM EDT Temperature 36.4 C (97.5 F) 03/14/2024 11:42 AM E DT Respiratory Rate 17 03/14/2024 11:42 AM EDT Oxygen Saturation 97% 03/14/2024 11:42 AM EDT Inhaled Oxygen Concentration - - Weight 51.4 kg (113 lb 6.4 oz) 03/14/2024 11:42 AM EDT Height 157.5 cm (5' 2") 03/14/2024 11:42 AM EDT Body Mass Index 20.74 03/14/2024 11:42 AM EDT documented in this [...] Progress Notes * Stefany Benitez MD - 03/14/2024 11:56 AM EDT ASSESSMENT / PLAN: Melissa Carpenter is a 58 year old female with PMHx H/o left lung neoplasm / s/p lobectomy in LLL / COPD / 39 pack year history / h/o tobacco use in early remission - still smokes 3 cigarettes a day /HTN / MDD / anxiety / bipolar / HLD - here for recheck Sinusitis Recommend OTC flonase + saline spray Add abx next week if not improved or moves in to chest HTN / hypertensive kidney disease Moderately well controlled today Follows with cardiology Continue losartan, [...] MDD / Anxiety / Bipolar affective disorder stable Follows with [facility]. On paxil, abilify and klonopin HLD Cont statin Former tobacco use Quit 2022 39 pack year history Screenings/anticipatory guidance reviewed include if applicable nutrition, family planning/contraception, physical activity, healthy weight, injury prevention, misuse of tobacco, alcohol and drugs, sexual behavior and STDs, dental health, mental health, immunizations, age appropriate screenings: Next Dexa 2024, started oral fosamax and 50k vit d weekly 08/2023 Next colonoscopy 2025 (10yr recall) / annual mammograms UTD / paps with [employer],recent h/o LGSIL, next pap due 06/2024 Follow Up: Return in about 6 months (around 09/13/2024) for Labs 2-5 Days Before Next Visit. | For:Labs 2-5 Days Before Next Visit Hypertensive kidney disease (Primary) - COMPREHENSIVE METABOLIC PANEL; Future; Expected date: 09/13/2024 Acute frontal sinusitis, recurrence not specified - Cephalexin 500 MG Oral Capsule; Take 1 Capsule by mouth in the morning and 1 Capsule at noon and 1 Capsule before bedtime. Do all this for 10 days. History of lung cancer Centrilobular emphysema (HCC) Chronic heart failure with preserved ejection fraction (HCC) Dyslipidemia, goal LDL below 70 Bipolar affective disorder, remission status unspecified (HCC) Follow Up: Return in about 6 months (around 09/13/2024) for Labs 2-5 Days Before Next Visit. | For:Labs 2-5 Days Before Next Visit If needed, prefers contact by: Ok to leave message on phone: SUBJECTIVE: Nursing Notes: Bharati Ko LPN 03/14/24 1148 Signed The patient has been properly identified by confirmation of name and date of . Chief Complaint Patient presents with Follow Up Would like to discuss her sinuses is not sure if she is having allergies or if she has an infection HPI: Melissa Carpenter is a 58 year old female. Here for recheck. She is adherent with medications She denies any chest symptoms but is feeling as if a sinus infection is coming on - last time it turned in to pneumonia. X 1 week sinus congestion. No fevers. She reports that her mother, who was on hospice, has passed. 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 Umeclidinium [place] 62.5 MCG/ACT Inhalation Aerosol Powder Breath Activated [...] MOUTH IN THE MORNING AND ONE BEFORE [id number] Tablet 3 Ipratropium-Albuterol 0.5-2.5 (3) MG/3ML Inhalation Solution (Duoneb) Inhale 3 mL by mouth 4 times a day as needed for Dyspnea, Wheezing or Cough. Entresto 97-103 MG Oral Tablet (sacubitril-valsartan 97-103 [...] taking: Reported on 11/19/2023) 1 Each 1 D3-50 1.25 MG (06005 UT) Oral Capsule (Cholecalciferol) Take 1 Capsule by mouth once a week. (Patient not taking: Reported on 03/05/2024) 12 Capsule 0 No current facility-administered medications for this visit. OBJECTIVE: BP 160/72 | Pulse 71 | Temp 36.4 C (97.5 F) | Resp 17 | Ht 1.575 m (5' 2") | Wt 51.4 kg (113 lb6.4 oz) | LMP 04/06/2020 | SpO2 97% | BMI 20.74 kg/m | BSA 1.5 m Vitals reviewed and is hypertensive / afebrile / and not tachycardic General: No acute distress. Neuro: Alert Pleasant & interactive. Respiratory: Good inspiratory effort, no labored breathing. CTAB with exception of wheeze in LLL (s/p lobectomy there) CV: RRR no M R G HEENT: Conjunctivae appear clear. No swelling noted face or lips. TM s wnl bl Skin: No rash visible on exposed skin areas, normal coloration & appears dry. Psych: Normal affect. Fluent speech. Stefany Benitez MD [facility], [address] [address] There are no Patient Instructions on file for this visit. documented in this encounter Nursing Notes * Bharati Ko LPN - 03/14/2024 11:48 AM EDT The patient has been properly identified by confirmation of name and date of . Chief Complaint Patient presents with Follow Up Would like to discuss her sinuses is not sure if she is having allergies or if she has an infection documented in this encounter Plan of Treatment Upcoming Encounters Date Type Department Care Team (Late st Contact Info) Description 03/21/2024 8:30 AM EDT Office Visit [facility], [facility] [address] Joan Hampton CRNP 132 [facility] [place] [address] 04/02/2024 1:00 PM EDT Imaging Vascular Lab, [facility] [address] [facility] [place] 132 [facility] [place] [address] 04/02/2024 2:10 PM EDT Office Visit Vascular Surgery, [facility] 132 [facility] [place] [address] Sanjiv Wolf MD [address] [place] [address] 04/07/2024 4:15 PM EDT Imaging Radiology [facility] [address] [facility] [place] 132 [facility] [place] [address] 04/08/2024 2:00 PM EDT Office Visit Nephrology, [facility] [address] [place], [place] [address] Brad Johnson MD 200 [facility] [place], [place] [address] 08/04/2024 10:00 AM EST [facility] [address] [facility] [place] [address] Nathalia Guerrero PA-C [address] [place] [address] 09/15/2024 10:40 AM EST Office Visit [facility] [address] [place] [id number] Stefany Benitez MD [address] [place] [address] Scheduled Orders Name Type Priority Associated Diagnoses Orde r Schedule COMPREHENSIVE METABOLIC PANEL Lab Routine Hypertensive kidney disease Expected: 09/13/2024 (Approximate), Expires: 04/13/2025 Scheduled Procedures Name Priority Associated Diagnoses Date/Ti [...] D LEVEL ONCE IN A LIFETIME-USE SMARTSET# [id number] Completed 11/14/2023, 05/05/2023, 08/16/2017, Additional history exists GARDASIL-HPV IMMUNIZATION SERIES Aged Out No longer eligible based on patient's age to complete this topic MENINGOCOCCAL (MENACTRA/MENVEO) Aged Out No longer eligible based on patient's age to complete this topic documented as of this encounter Medical Devices Not on filedocumented as of this encounter Visit Diagnoses Diagnosis Hypertensive kidney disease- Primary Unspecified hypertensive kidney disease with chronic kidney disease stage I through stage IV, or unspecified Acute frontal sinusitis, recurrence not specified History of lung cancer Personal history of malignant neoplasm of bronchus and lung Centrilobular emphysema (HCC) Other emphysema Chronic heart failure with preserved ejection fraction (HCC) Dyslipidemia, goal LDL below 70 Other and unspecified hyperlipidemia Bipolar affective disorder, remission status unspecified (HCC) documented in this encounter Advance Directives * [...] Power of Attor jazlyn? No Care Teams Occasional Caregiver Relationship Specialty Start Date End Date Stefany Benitez MD [address] [place] [address] PCP - General Family Medicine 04/25/22 documented as of this encounter
--- OUTSIDE RECORDS SUMMARY | 2024-05-27 09:20 | External Medical Summary | Summary of Care ---
Author Name Unknown Organization [facility] Address [address] [facility] [place] [address] Phone [phone] Care Team Providers Care Tool Crib Manager Name Role Phone Stefany Benitez MD Primary Care Provid er Reason for Visit * Reason Onset Date Comments Test Results 03/13/2024 Encounter Details Date Type Department Care Team (Late st Contact Info) Description 03/13/2024 Telephone Cardiology, [facility] [address] [place] [address] Garret Beverly MD [address] [place] [address] Test Results Allergies Active Allergy Reactions Criticality Noted Date [...] as of this encounter (statuses as of 03/13/2024) Medications Medication Sig Dispensed Refills Start Date [...] by mouth in the morning. Active Umeclidinium [place] 62.5 MCG/ACT Inhalation Aerosol Powder Breath Activated [...] Wheezing or Cough. 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 Condyloma acuminatum Moderate COPD (chronic obstructive pulmonary dis ease) Overview: Dr Peoples Gastroesophageal reflux disease without esophagi tis Depression with anxiety documented as of this encounter (statuses as of 03/13/2024) Resolved Problems Problem Noted Date Diagnosed Date [...] miriam Nodule of left lung 08/17/2015 09/10/20 DVT prophylaxis 10/02/2014 10/23/2014 Screening cholesterol level [...] as of this encounter (statuses as of 03/13/2024) Immunizations Name Administration Dates Next Due COVID-19 mRNA, LNP-s, No Pre serve, 2-Dose Series (Moderna) 01/20/2021,12/23/2020 Pneumococcal Conjugate Vacci ne, 20-valent ([id number]) 05/01/2023 Pneumococcal Polysaccharide PPV23 (Pneumovax) 10/09/2015 Seasonal [...] encounter Miscellaneous Notes * Telephone Encounter - Mary Kay Jose CMA - 03/13/2024 3:37 PM EDT My g sent. * Telephone Encounter - Mary Kay Jose CMA - 03/13/2024 3:35 PM EDT ----- Message from Garret Beverly MD sent at 03/13/2024 3:27 PM EDT ----- Stress echocardiography without stress-induced ischemia. There was a hypertensive blood pressure response was hypertensive changes on echocardiogram. Mildly blunted heart rate response to peak stress. keep upcoming appointment to discuss documented in this encounter Plan of Treatment Upcoming Encounters Date Type Department Care Team (Late st Contact Info) Description 03/14/2024 11:40 AM EDT Office Visit [facility] [address] [place] [address] Stefany Benitez MD [address] [place] [address] 03/21/2024 8:30 AM EDT Office Visit Cardiology, [facility] 132 [place] [address] Joan Hampton CRNP 132 [place] [address] 04/02/2024 1:00 PM EDT Imaging Vascular Lab, [facility] 2nd [facility] 132 [place] [address] 04/02/2024 2:10 PM EDT Office Visit Vascular Surgery, [address] [place] [address] Sanjiv Wolf MD [address] [place] [address] 04/07/2024 4:15 PM EDT Imaging Radiology [facility] 1st [facility] 132 [place] [address] 04/08/2024 2:00 PM EDT Office Visit Nephrology, [facility] [address] [place] [address] Brad Johnson MD [address] [place] [address] 08/04/2024 10:00 AM EST Office Visit Gynecology/Obstetrics [facility] [address] [place] [address] Nathalia Guerrero PA-C [address] [place] [address] Scheduled Procedures Name Priority Associated Diagnoses Date/Ti [...] D LEVEL ONCE IN A LIFETIME-USE SMARTSET# [id number] Completed 11/14/2023, 05/05/2023, 08/16/2017, Additional history exists [...] Power of Attor jazlyn? No Care Teams Tool Crib Manager Relationship Specialty Start Date End Date Stefany Benitez MD [address] [place] [address] PCP - General Family Medicine 04/25/22 documented as of this encounter
--- OUTSIDE RECORDS SUMMARY | 2024-05-27 09:21 | External Medical Summary | Summary of Care ---
Author Name Unknown Organization [facility] Address [address] [place] [address] Phone [phone] Care Team Providers Care Tire Buster Name Role Phone Stefany Benitez MD Primary Care Provid er Encounter Details Date Type Department Care Team (Late st Contact Info) Description 02/15/2024 Population Health External Data Unspecified Department Allergies [...] as of this encounter (statuses as of 02/20/2024) Medications Medication Sig Dispensed Refills Start Date [...] Tablet by mouth in the morning. Active Benzonatate 100 MG Oral Capsule (Tessalon Perles) Take 1 Capsule by mouth 3 times a day as needed for Cough. Active Umeclidinium [place] 62.5 MCG/ACT Inhalation Aerosol Powder Breath Activated [...] BEFORE BEDTIME 180 Tablet 3 10/03/2023 Active guaiFENesin ER 600 MG Oral Tablet Extended Release 12 Hour (Humibid LA) Take 2 Tablets by mouth in the morning and 2 Tablets before bedtime. Active Ipratropium-Albuterol 0.5-2.5 (3) MG/3ML Inhalation Solution (Duoneb) Inhale 3 mL by mouth 4 times a day as needed for Dyspnea, Wheezing or Cough. 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 Condyloma acuminatum Moderate COPD (chronic obstructive pulmonary dis ease) Overview: Dr Peoples Gastroesophageal reflux disease without esophagi tis Depression with anxiety documented as of this encounter (statuses as of 02/20/2024) Resolved Problems Problem Noted Date Diagnosed Date [...] as of this encounter (statuses as of 02/20/2024) Immunizations Name Administration Dates Next Due COVID-19 mRNA, LNP-s, No Pre serve, 2-Dose Series (Moderna) 01/20/2021,12/23/2020 Pneumococcal Conjugate Vacci ne, 20-valent ([id number]) 05/01/2023 Pneumococcal Polysaccharide PPV23 (Pneumovax) 10/09/2015 Seasonal [...] Team (Late st Contact Info) Description 03/05/2024 8:00 AM EDT Imaging [facility] [address] [place] [address] Gw, Excess Time Radiology [address] [place] [address] 03/14/2024 11:40 AM EDT Office Visit [address] [place] [phone] Stefany Benitez MD [address] [place] [address] 03/21/2024 8:30 AM EDT Office Visit Cardiology, [facility] [address] [facility] [place] [address] Joan Hampton CRNP [facility] [place] [address] 04/02/2024 1:00 PM EDT Imaging [facility] 132 [facility] [place] [address] 04/02/2024 2:10 PM EDT Office Visit Vascular Surgery, [facility] [address] [facility] [place] [address] Sanjiv Wolf MD [address] [place] [address] 04/07/2024 4:15 PM EDT Imaging Radiology [facility] 1st [facility] [address] [facility] [place] [address] 06/30/2024 2:40 PM EDT Office Visit Nephrology, [facility] 200 [place] [address] Brad Johnson MD [address] [place] [address] 08/04/2024 10:00 AM EST Office Visit Gynecology/Obstetrics [facility] [address] [facility] [place] [address] Nathalia Guerrero PA-C 132 [facility] [place] [address] Scheduled Procedures Name Priority Associated Diagnoses Date/Ti [...] D LEVEL ONCE IN A LIFETIME-USE SMARTSET# [id number] Completed 11/14/2023, 05/05/2023, 08/16/2017, Additional history exists [...] Power of Attor jazlyn? No Care Teams Tire Buster Relationship Specialty Start Date End Date Stefany Benitez MD [address] [place] [address] PCP - General Family Medicine 04/25/22 documented as of this encounter
--- OUTSIDE RECORDS SUMMARY | 2024-05-27 09:21 | External Medical Summary | Summary of Care ---
Author Name Unknown Organization [facility] Address [address] [place] [address] Phone [phone] Care Team Providers Care Purification Director Name Role Phone Stefany Benitez MD Primary Care Provid er Encounter Details Date Type Department Care Team (Late st Contact Info) Description 01/17/2024 11:30 AM EDT Scheduled Telephone Care Coordination and Integration [address], [place] [id number] Marisela Tran [facility] Winder [address] [place] [address] Allergies Active Allergy Reactions Criticality Noted Date [...] as of this encounter (statuses as of 01/17/2024) Medications Medication Sig Dispensed Refills Start Date [...] as needed for Cough. 0 Active Umeclidinium [place] 62.5 MCG/ACT Inhalation Aerosol Powder Breath Activated [...] dental appointment. 4 Capsule 0 08/21/2023 Active Alendronate Sodium 70 MG Oral [...] the morning and 2 Tablets before bedtime. 0 Active Ipratropium-Albuterol 0.5-2.5 (3) MG/3ML Inhalation Solution (Duoneb) Inhale 3 mL by mouth 4 times a day as needed for Dyspnea, Wheezing or Cough. 0 Active D3-50 1.25 MG (25886 UT) Oral Capsule (Cholecalciferol)Maureen cations:Age-related osteoporosis without current pathological fracture,Hypovitamino sis D Take 1 Capsule by mouth once a week. 12 Capsule 0 12/18/2023 Active Furosemide 40 MG Oral Tablet (Lasix) Take 1 Tablet by mouth in the morning. 0 12/07/2023 Active Entresto 97-103 MG Oral Tablet Take 1 Tablet by mouth in the morning and 1 Tablet before bedtime. 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 Condyloma acuminatum Moderate COPD (chronic obstructive pulmonary dis ease) Overview: Dr Peoples Gastroesophageal reflux disease without esophagi tis Depression with anxiety documented as of this encounter (statuses as of 01/17/2024) Resolved Problems Problem Noted Date Diagnosed Date [...] as of this encounter (statuses as of 01/17/2024) Immunizations Name Administration Dates Next Due COVID-19 mRNA, LNP-s, No Pre serve, 2-Dose Series (Moderna) 01/20/2021,12/23/2020 Pneumococcal Conjugate Vacci ne, 20-valent ([id number]) 05/01/2023 Pneumococcal Polysaccharide PPV23 (Pneumovax) 10/09/2015 Seasonal [...] as of this encounter Progress Notes * Marisela Tr[facility] - 01/17/2024 9:49 AM EDT Telemedicine visit: No [facility] (MARLENY) documentation: MARLENY f/u call per WILMA Villarreal CM Spoke with patient Reports tiredness today; elderly mother is on hospice and was up most of night with breathing issues Discussed asking hospice for more support hours--notes hospice is trying to get more hours Brother is involved and helps with mother; no involvement from sister Reports productive cough (yellow/green), head pressure and some SOB Checked SpO2 today and was running low 90's--this is low for her Yelling heard in background and patient states "I gotta go" Call ended abruptly---unable to complete full assessment documented in this encounter Plan of Treatment Upcoming Encounters Date Type Department Care Team (Late st Contact Info) Description 03/05/2024 8:00 AM EDT Imaging [facility] 132 [facility] [place] [address] Gw, Excess Time Radiology [facility] [place] [address] 03/14/2024 11:40 AM EDT Office Visit [place] [address] [place] [address] Stefany Benitez MD [address] [place] [address] 03/21/2024 8:30 AM EDT Office Visit Cardiology, [facility] 132 [facility] [place] [address] Joan Hampton CRNP 132 [facility] [place] [address] 04/02/2024 1:00 PM EDT Imaging Vascular Lab, [address], [place] [address] [place] [address] 04/02/2024 2:10 PM EDT Office Visit Vascular Surgery, [facility] 132 [facility] [place] [address] Sanjiv Wolf MD [address] [place] [address] 04/07/2024 4:15 PM EDT Imaging Radiology [facility] 1st Floor, [place] [address] [place] [address] 06/30/2024 2:40 PM EDT Office Visit Nephrology, Seymour Perez [address] [place] [address] Brad Johnson MD 200 [facility] [place] [address] 08/04/2024 10:00 AM EST Office Visit Gynecology/Obstetrics [facility] [address] [place] [address] Nathalia Guerrero PA-C [address] [place] [address] Scheduled Procedures Name Priority Associated Diagnoses Date/Ti [...] 06/05/2025 06/05/2023, 06/05/2023 Pap Smear 05/01/2026 05/01/2023, 0711/2019, 02/06/2017, Additional history exists Colonoscopy 08/03/2026 08/03/2016, [...] D LEVEL ONCE IN A LIFETIME-USE SMARTSET# [id number] Completed 11/14/2023, 05/05/2023, 08/16/2017, Additional history exists [...] the patient have Health Care Power of Fence Installer Foreman? No Care Teams Purification Director Relationship Specialty Start Date End Date Stefany Benitez MD [address] [facility] [place] [address] PCP - General Family Medicine 04/25/22 documented as of this encounter
--- OUTSIDE RECORDS SUMMARY | 2024-05-27 09:21 | External Medical Summary | Summary of Care ---
Author Name Unknown Organization [facility] Address [address] [place] [address] Phone [phone] Care Team Providers Care Forest Practices Field Coordinator Name Role Phone Stefany Benitez MD Primary Care Provid er Encounter Details Date Type Department Care Team (Late st Contact Info) Description 02/19/2024 Population Health External Data Unspecified Department Allergies [...] day as needed for Cough. Active Umeclidinium [place] 62.5 MCG/ACT Inhalation Aerosol Powder Breath Activated [...] Wheezing or Cough. 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 Heterozygous factor V Leiden mutation 09/30/2014 [...] (Moderna) 01/20/2021,12/23/2020 Pneumococcal Conjugate Vacci ne, 20-valent ([id number]) 05/01/2023 Pneumococcal Polysaccharide PPV23 (Pneumovax) 10/09/2015 Seasonal [...] Info) Description 03/05/2024 8:00 AM EDT Imaging [facility] [address] [place] [address] Gw, Excess Time Radiology 132 [place] [address] 03/14/2024 11:40 AM EDT Office Visit [address] [place] [address] Stefany Benitez MD [address] [place] [address] 03/21/2024 8:30 AM EDT Office Visit Cardiology, [facility] 132 [place] [address] Joan Hampton CRNP 132 [facility] [place] [address] 04/02/2024 1:00 PM EDT Imaging [facility] 132 [facility] [place] [address] 04/02/2024 2:10 PM EDT Office Visit Vascular Surgery, [facility] [address] [place] [address] Sanjiv Wolf MD [address] [place] [address] 04/07/2024 4:15 PM EDT Imaging Radiology [facility] 1st [facility] [address] [place] [address] 06/30/2024 2:40 PM EDT Office Visit Nephrology, [facility] 200 [facility] [place] [address] Brad Johnson MD 200 [facility] [place] [address] 08/04/2024 10:00 AM EST Office Visit Gynecology/Obstetrics [facility] [address] [place] [address] Nathalia Guerrero PA-C 132 [facility] [place] [address] Scheduled Procedures Name Priority Associated Diagnoses Date/Ti [...] D LEVEL ONCE IN A LIFETIME-USE SMARTSET# [id number] Completed 11/14/2023, 05/05/2023, 08/16/2017, Additional history exists [...] Power of Attor jazlyn? No Care Teams Forest Practices Field Coordinator Relationship Specialty Start Date End Date Stefany Benitez MD [address] [place] [address] PCP - General Family Medicine 04/25/22 documented as of this encounter
--- OUTSIDE RECORDS SUMMARY | 2024-05-27 09:21 | External Medical Summary | Summary of Care ---
Author Name Unknown Organization [facility] Address [address] [place] [address] Phone [phone] Care Team Providers Care Bomb Technician Name Role Phone Stefany Benitez MD Primary Care Provid er Encounter Details Date Type Department Care Team (Late st Contact Info) Description 01/10/2024 10:45 AM EDT Scheduled Telephone Care Coordination and Integration [address] [place], [place] [phone] Marisela Tran [facility] [address] [place] [address] Allergies Active Allergy Reactions Criticality Noted Date [...] as of this encounter (statuses as of 01/10/2024) Medications Medication Sig Dispensed Refills Start Date [...] as needed for Cough. 0 Active Umeclidinium [place] 62.5 MCG/ACT Inhalation Aerosol Powder Breath Activated [...] or Cough. 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 Condyloma acuminatum Moderate COPD (chronic obstructive pulmonary dis ease) Overview: Dr Peoples Gastroesophageal reflux disease without esophagi tis Depression with anxiety documented as of this encounter (statuses as of 01/10/2024) Resolved Problems Problem Noted Date Diagnosed Date [...] as of this encounter (statuses as of 01/10/2024) Immunizations Name Administration Dates Next Due COVID-19 mRNA, LNP-s, No Pre serve, 2-Dose Series (Moderna) 01/20/2021,12/23/2020 Pneumococcal Conjugate Vacci ne, 20-valent ([id number]) 05/01/2023 Pneumococcal Polysaccharide PPV23 (Pneumovax) 10/09/2015 Seasonal [...] Progress Notes * [facility]isela Tr[facility] - 01/10/2024 11:42 AM EDT Telemedicine visit: No [facility] (MARLENY) documentation: MARLENY f/u call per WILMA Villarreal CM Spoke to patient Denies concerns Weighs daily, was not able to recall exact weight 109-110 today Aware to call CM with needs documented in this encounter Plan of Treatment Upcoming Encounters Date Type Department Care Team (Late st Contact Info) Description 03/05/2024 8:00 AM EDT Imaging [facility] 2nd Floor Cardiology, [place] 132 [facility] [place] [address] Gw, Excess Time Radiology 132 [facility] [place] [address] 03/14/2024 11:40 AM EDT Office Visit [facility] [address] [place] [address] Stefany Benitez MD [address] [place] [address] 03/21/2024 8:30 AM EDT Office Visit Cardiology, [facility] 132 [facility] [place] [address] Joan Hampton CRNP 132 [facility] [place] [address] 04/02/2024 1:00 PM EDT Imaging Vascular Lab, [address] 132 [facility] [place] [address] 04/02/2024 2:10 PM EDT Office Visit Vascular Surgery, [facility] 132 [facility] [place] [address] Sanjiv Wolf MD [address] [facility] [address] 04/07/2024 4:15 PM EDT Imaging Radiology [facility] 1st [facility] 132 [facility] [place] [address] 06/30/2024 2:40 PM EDT Office Visit Nephrology, [facility] 200 [facility] [place] [address] Brad Johnson MD [address] [place] [address] 08/04/2024 10:00 AM EST [facility] [address] [place] [address] Nathalia Guerrero PA-C [address] [place] [address] Scheduled Procedures Name Priority Associated Diagnoses Date/Ti [...] D LEVEL ONCE IN A LIFETIME-USE SMARTSET# [id number] Completed 11/14/2023, 05/05/2023, 08/16/2017, Additional history exists [...] patient have Health Care Power of Microbiology Quality Control Technician? No Care Teams Bomb Technician Relationship Specialty Start Date End Date Stefany Benitez MD [address] [place] [address] PCP - General Family Medicine 04/25/22 documented as of this encounter
--- OUTSIDE RECORDS SUMMARY | 2024-05-27 09:21 | External Medical Summary | Summary of Care ---
Author Name Unknown Organization [facility] Address [address] [facility] [place] [address] Phone [phone] Care Team Providers Care Microbiology Lab Assistant Name Role Phone Stefany Benitez MD Primary Care Provid er Reason for Visit * Reason Comments eRx-Medication Refill Encounter Details Date Type Department Care Team (Late st Contact Info) Description 01/29/2024 Refill Cardiology, [facility] [address] [place] [address] Joan Hampton CRNP [address] [place] [address] Allergies Active Allergy Reactions Criticality Noted Date [...] as of this encounter (statuses as of 01/29/2024) Medications Medication Sig Dispensed Refills Start Date [...] as needed for Cough. 0 Active Umeclidinium [place] 62.5 MCG/ACT Inhalation Aerosol Powder Breath Activated [...] dental appointment. 4 Capsule 0 3 Active Alendronate Sodium 70 MG Oral [...] BEFORE BEDTIME 180 Tablet 3 4 Active guaiFENesin ER 600 MG Oral Tablet Extended Release 12 Hour (Humibid LA) Take 2 Tablets by mouth in the morning and 2 Tablets before bedtime. 0 Active Ipratropium-Albuter ol 0.5-2.5 (3) MG/3ML Inhalation Solution (Duoneb) Inhale 3 mL by mouth 4 times a day as needed for Dyspnea, Wheezing or Cough. 0 Active D3-50 1.25 MG (19173 UT) Oral Capsule (Cholecalciferol)In dications:Age-relat ed osteoporosis without current pathological fracture,Hypovitami nosis D Take 1 Capsule by mouth once a week. 12 Capsule 0 4 Active Entresto 97-103 MG Oral Tablet (sacubitril-valsart an 97-103 mg per tab) Take 1 Tablet by mouth in the morning and 1 Tablet before bedtime. 180 Tablet 3 4 Active Furosemide 40 MG Oral Tablet (Lasix) Take 1 Tablet by mouth in the morning. 90 Tablet 3 4 Active Furosemide 40 MG Oral Tablet (Lasix) Take 1 Tablet by mouth in the morning. 0 4 01/29/20 24 Discontinued Entresto 97-103 MG Oral Tablet Take 1 Tablet by mouth in the morning and 1 Tablet before bedtime. 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 Condyloma acuminatum Moderate COPD (chronic obstructive pulmonary dis ease) Overview: Dr Peoples Gastroesophageal reflux disease without esophagi tis Depression with anxiety documented as of this encounter (statuses as of 01/29/2024) Resolved Problems Problem Noted Date Diagnosed Date [...] as of this encounter (statuses as of 01/29/2024) Immunizations Name Administration Dates Next Due COVID-19 mRNA, LNP-s, No Pre serve, 2-Dose Series (Moderna) 01/20/2021,12/23/2020 Pneumococcal Conjugate Vacci ne, 20-valent ([id number]) 05/01/2023 Pneumococcal Polysaccharide PPV23 (Pneumovax) 10/09/2015 Seasonal [...] encounter Miscellaneous Notes * Telephone Encounter - Joe Sanchez DO - 01/29/2024 2:40 PM EDTSigned Prescriptions: Disp Refills Entresto 97-103 MG Oral Tablet (sacubitril*180 Ta*3 Sig: Take 1 Tablet by mouth in the morning and 1 Tablet before bedtime. Authorizing Provider: JOE SANCHEZ Furosemide 40 MG Oral Tablet (Lasix) 90 Tab*3 Sig: Take 1 Tablet by mouth in the morning. Authorizing Provider: JOE SANCHEZ * Telephone Encounter - Meredith Moon RN - 01/29/2024 12:55 PM EDTPending Prescriptions: Disp Refills Entresto 97-103 MG Oral Tablet (sacubitril*180 Ta*3 Sig: Take 1 Tablet by mouth in the morning and 1 Tablet before bedtime. Furosemide 40 MG Oral Tablet (Lasix) 90 Tab*3 Sig: Take 1 Tablet by mouth in the morning. * Telephone Encounter - Meredith Moon RN - 01/29/2024 12:55 PM EDT Pending Prescriptions: Disp Refills Entresto 97-103 MG Oral Tablet (sacubitri*180 Ta*3 Sig: Take 1 Tablet by mouth in the morning and 1 Tablet before bedtime. Furosemide 40 MG Oral Tablet (Lasix) [Pha*90 Tab*3 Sig: Take 1 Tablet by mouth in the morning. documented in this encounter Plan of Treatment Upcoming Encounters Date Type Department Care Team (Late st Contact Info) Description 03/05/2024 8:00 AM EDT Imaging [facility] 2nd Floor Cardiology, [address] [place] [address] Gw, Excess Time Radiology [address] [place] [address] [place] [address] 03/14/2024 11:40 AM EDT Office Visit [place] [address] [place] [phone] Stefany Benitez MD [address] [place] [address] 03/21/2024 8:30 AM EDT Office Visit Cardiology, [facility] 132 [facility] [place] [address] Joan Hampton CRNP [address] [place] [address] 04/02/2024 1:00 PM EDT Imaging Vascular Lab, [address] 132 [facility] [place] [address] 04/02/2024 2:10 PM EDT Office Visit Vascular Surgery, [facility] 132 [facility] [place] [address] Sanjiv Wolf MD [address] [place] [address] 04/07/2024 4:15 PM EDT Imaging Radiology [facility] [place] [address] 06/30/2024 2:40 PM EDT Office Visit Nephrology, Seymour Perez 200 [facility] [place], [place] [address] Brad Johnson MD [address] [facility] [address] [place] [address] 08/04/2024 10:00 AM EST Office Visit Gynecology/Obstetrics Yulisa Perez [address] [place] [address] Nathalia Guerrero PA-C [address] [place] [address] Scheduled Procedures Name Priority Associated Diagnoses Date/Ti [...] D LEVEL ONCE IN A LIFETIME-USE SMARTSET# [id number] Completed 11/14/2023, 05/05/2023, 08/16/2017, Additional history exists [...] the patient have Health Care Power of Rice Field Worker? No Care Teams Microbiology Lab Assistant Relationship Specialty Start Date End Date Stefany Benitez MD [address] [place] [facility] [facility] [place] [address] PCP - General Family Medicine 04/25/22 documented as of this encounter
--- OUTSIDE RECORDS SUMMARY | 2024-05-27 09:21 | External Medical Summary | Summary of Care ---
Author Name Unknown Organization [facility] Address [address] [place] [facility] [place] [place] [address] Phone [phone] Care Team Providers Care Piano Regulator Inspector Name Role Phone Stefany Benitez MD Primary Care Provid er Encounter Details Date Type Department Care Team (Late st Contact Info) Description 03/05/2024 Orders Only Unspecified Department Daniel Cuevas, DO [address] [place] [address] Allergies Active Allergy Reactions Criticality Noted Date [...] as of this encounter (statuses as of 03/05/2024) Medications Medication Sig Dispensed Refills Start Date [...] day as needed for Cough. Active Umeclidinium [place] 62.5 MCG/ACT Inhalation Aerosol Powder Breath Activated [...] Wheezing or Cough. 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 Condyloma acuminatum Moderate COPD (chronic obstructive pulmonary dis ease) Overview: Dr Peoples Gastroesophageal reflux disease without esophagi tis Depression with anxiety documented as of this encounter (statuses as of 03/05/2024) Resolved Problems Problem Noted Date Diagnosed Date [...] as of this encounter (statuses as of 03/05/2024) Immunizations Name Administration Dates Next Due COVID-19 mRNA, LNP-s, No Pre serve, 2-Dose Series (Moderna) 01/20/2021,12/23/2020 Pneumococcal Conjugate Vacci ne, 20-valent ([id number]) 05/01/2023 Pneumococcal Polysaccharide PPV23 (Pneumovax) 10/09/2015 Seasonal [...] Description 03/14/2024 11:40 AM EDT Office Visit [facility] [address] [place] [address] Stefany Benitez MD [address] [place] [id number] 03/21/2024 8:30 AM EDT Office Visit Cardiology, [facility] 132 [facility] [place] [address] Joan Hampton CRNP [address] [place] [address] 04/02/2024 1:00 PM EDT Imaging [facility] 132 [facility] [place] [address] 04/02/2024 2:10 PM EDT Office Visit Vascular Surgery, [facility] 132 [facility] [place] [address] Sanjiv Wolf MD [address] [place] [address] 04/07/2024 4:15 PM EDT Imaging Radiology [facility] 1st [facility] 132 [facility] [place] [address] 06/30/2024 2:40 PM EDT Office Visit Nephrology, [facility] [address] [place] [address] Brad Johnson MD [address] [place] [address] 08/04/2024 10:00 AM EST Office Visit Gynecology/Obstetrics [facility] 132 [facility] [place] [address] Nathalia Guerrero PA-C 132 [facility] [place] [address] Scheduled Procedures Name Priority Associated Diagnoses Date/Ti [...] D LEVEL ONCE IN A LIFETIME-USE SMARTSET# [id number] Completed 11/14/2023, 05/05/2023, 08/16/2017, Additional history exists GARDASIL-HPV IMMUNIZATION SERIES Aged Out No longer eligible based on patient's age to complete this topic MENINGOCOCCAL (MENACTRA/MENVEO) Aged Out No longer eligible based on patient's age to complete this topic documented as of this encounter Medical Devices Not on filedocumented as of this encounter Procedures Procedure Name Priority Date/Time Associated Diagnosis Comments NM MYOCARDIAL PERFUSION IMAGING SPECT MULTIPLE STUDIES WITH PHARMACOLOGIC INTERVENTION Routine 03/05/2024 7:47 AM EDT documented in this encounter Results * NM MYOCARDIAL PERFUSION IMAGING SPECT MULTIPLE STUDIES WITH PHARMACOLOGIC INTERVENTION (03/05/2024 7:47 AM EDT) LEFT VENTRICULAR EJECTION FRACTION 53 % [facility] C[facility]IOLOG[facility] 03/05/2024 7:47 AM EDT Daniel [place]A NUCLEAR MED [facility] CARDIOLOGY documented in this encounter Advance Directives * [...] Power of Attor jazlyn? No Care Teams Piano Regulator Inspector Relationship Specialty Start Date End Date Stefany Benitez MD [address] [place] [address] PCP - General Family Medicine 04/25/22 documented as of this encounter
[2024-05-27] MEDS: PROMETHAZINE 6.25 MG/50.25 ML BAG IV PRN (10:01)
--- NOTE | 2024-05-27 10:53 | Nephrology Consultation ---
Date of Consultation May 27, 2024 Assessment & Plan (1) GARLAND (acute kidney injury): on admission creatinine was 1.7 which is higher than her baseline of normal. however her renal function has been all over the place in the last few months with some episodes of acute kidney injury also. Most recent outpatient lab was from May 07, 2024 and showed a creatinine of 1.4. looking at the trend this can be regarded as her baseline. on admission it was 1.7 but it is already trending down to 1.6. Etiology of acute kidney injury is most likely hemodynamic in the setting of respiratory failure and decompensated heart failure. no further workup is needed for the etiology of acute kidney injury she does need daily renal panel as well as strict input output charting. given her symptoms as well as radiological finding it is reasonable to give her Lasix (2) Acute hyponatremia: him to assume this as hypervolemic hyponatremia in the setting of decompensated congestive heart failure. the treatment of this is IV Lasix and diuresis. urine sodium and urine osmolarity has been sent and is pending and we will review. (3) Acute hypoxemic respiratory failure: (4) Acute on chronic diastolic heart failure with preserved ejection fraction: she has acute respiratory failure and requiring 3 L oxygen. likely combination of cardiac as well as pulmonary issues causing this respiratory failure. radiologically she looks like she has congestive heart failure with pleural effusion pulmonary congestion and pericardial effusion but then lot of findings we expect in the echocardiogram with CHF are absent. defer to Cardiology. cardiology note was reviewed in detail and agree with coordination with Nephrology regarding diuretics dosing. also consider pulmonary consult given her prior history of complicated pulmonary issues for now will do Lasix 40 mg IV q.8 hours. depending on the response will titrate further Plan case complexity high. reviewed Cardiology note as well as prior H and P hospital discharge, total time spent 62 minutes History of Present Illness Reason for Consultation: Hyponatremia and GARLAND Attending Physician: Abdi Robles DO History of Present Illness 59/F Extremely complicated cardiopulmonary status with history of recurrent respiratory failure. she is status post lobectomy of the left lung for lung cancer and also has underlying emphysema. she also has underlying pneumonitis, a cute decompensated diastolic congestive heart failure with associated right greater than left pleural effusions. significant vascular disease and is supposed to undergo aortic endarterectomy end of June 2020. she presented to the hospital late last night with shortness of breath. denies chest pain orthopnea lower extremity edema PND cough fever a productive sputum. Admitted for respiratory failure /CHF. na was low at 126 hen dropped to 124. back in normal na of 138. Also current creat of 1.7 is worse than 0.9 she had before. Workup so far shows CHF with Pulm edema and pl eff and pericardial effusion also. Home lasix dose 20 bid. ECHO done however is not classic type of CHF--normal Sized IVC and normal Sized left atrium and normal LVEF but she does have some diastolic dysfunction !!! Has got lasix 40mg x 1 dose but also received IV fluids. currently not written for either pending cards and nephro consult. she is currently On o2 --3 liter. BP is slightly high. ROS--- poor historian. History was reviewed from the chart. 12 systems reviewed and is otherwise negative. positive review of systems listed in his fear Physical examination middle-aged white female who looks older a chronically ill. She does have facial puffiness and resting shortness of breath. awake and alert oriented x3 mucous membrane is moist neck is supple no JVD chest bilateral decreased breath sound but very diminished in the left with bilateral rhonchi and crackles. CVS S1-S2 regular no murmur heard abdomen is soft nontender extremities without edema Allergies Allergy/AdvReac Type Severity Reaction Status Date / Time Bactrim Allergy Intermediate HIVES Verified 07/26/15 07:15 Sulfa (Sulfonamide Allergy Intermediate BACTRIM- Verified 05/27/24 02:11 Antibiotics) HIVES sulfamethoxazole Allergy Intermediate HIVES Verified 05/27/24 02:11 trimethoprim Allergy Intermediate HIVES Verified 05/27/24 02:11 metaxalone Allergy Unknown Unknown Verified 05/27/24 02:11 morphine Allergy Unknown . Verified 05/27/24 02:11 neomycin Allergy Unknown Unknown Verified 05/27/24 02:11 Quinolones Allergy Unknown Unknown Verified 05/27/24 02:11 tetracycline Allergy Unknown Hives Verified 05/27/24 02:11 amoxicillin [From Augmentin] Allergy Hives Verified 05/27/24 02:11 clavulanic acid Allergy Hives Verified 05/27/24 02:11 [From Augmentin] umeclidinium Allergy Hives Verified 05/27/24 02:11 [From Anoro Ellipta] vilanterol Allergy Unknown Verified 05/27/24 02:11 [From Anoro Ellipta] erythromycin base AdvReac Unknown Nausea Verified 05/27/24 02:23 moxifloxacin AdvReac Unknown hives Verified 05/27/24 02:11 Home Medications Medication Instructions Recorded Confirmed Type aripiprazole 5 mg tablet (Abilify) 5 mg PO DAILY 12/03/19 05/27/24 History aspirin 81 mg tablet 81 mg PO DAILY 02/04/20 05/27/24 History cetirizine 10 mg tablet 10 mg PO DAILY 02/04/20 05/27/24 History clonazepam 0.5 mg tablet 0.5 mg PO BID PRN Anxiety 02/04/20 05/27/24 History amlodipine 10 mg tablet 10 mg PO DAILY 08/01/21 05/27/24 History atorvastatin 20 mg tablet 20 mg PO DAILY 06/11/23 05/27/24 History carvedilol 25 mg tablet 25 mg PO BID 06/11/23 05/27/24 History paroxetine HCl 40 mg tablet 40 mg PO DAILY 06/11/23 05/27/24 History albuterol sulfate 2.5 mg/3 mL 2.5 mg (3 mL) inhalation Q4H PRN 06/15/23 05/27/24 Rx (0.083 %) solution for nebulization shortness of breath or wheezing #180 mL benzonatate 100 mg capsule 100 mg PO TID PRN cough #20 caps 06/15/23 05/27/24 Rx hydralazine 50 mg tablet 50 mg PO TID #90 tabs 06/15/23 05/27/24 Rx terazosin 1 mg capsule 2 mg (2 x 1 mg) PO HS #30 caps 06/15/23 05/27/24 Rx umeclidinium 62.5 mcg/actuation 1 inh inhalation DAILY #90 puffs 07/10/23 05/27/24 Rx blister powder for inhalation (Incruse Ellipta) acetaminophen 650 mg 650 mg PO Q8H PRN Pain 10/21/23 05/27/24 History tablet,extended release albuterol sulfate 90 mcg/actuation 2 puff inhalation Q4H PRN 01/04/24 05/27/24 Rx aerosol inhaler (Ventolin HFA) shortness of breath ,coughing or wheezing #18 grams furosemide 40 mg tablet 20 mg PO BID 05/27/24 05/27/24 History losartan 50 mg PO BID 05/27/24 05/27/24 History Patient History Medical History Anaphylaxis History of temporomandibular joint disorder GERD (gastroesophageal reflux disease) Bipolar disorder Breast fibroadenoma 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 Pulmonary nodule Arthritis Allergic rhinitis Lumbar stenosis (09/25/14) Surgical History History of D&C History of lumbar surgery H/O breast surgery H/O splenectomy Family History Father Hypertension Mother Lung cancer Other Breast cancer COPD (chronic obstructive pulmonary disease) Diabetes Social History Smoking Status: Former smoker Tobacco Type: Cigarettes Age Quit Using Tobacco: 58; Cigarettes Per Day: 3; Second Hand Exposure: No; Hx Alcohol Use: No Hx Substance Use: No Preferred Language: Welsh Communication Ability: Effective Prop Attendant Required: No Beliefs That Will Affect Care: None marital status: Current Living Situation: Spouse current occupational status: disabled Other Information That Helps Us Care for You: No Feels Safe at Home: Yes Safety Concerns: Feels Safe At This Time Assistive Devices: Nebulizer Results & Data Vital Signs (Past 12 Hours) Vital Signs Temp Pulse Pulse Resp BP BP Pulse Ox 05/27/24 07:43 73 13 95 05/27/24 07:04 71 05/27/24 06:50 65 16 98 05/27/24 04:38 20 156/78 H 95 05/27/24 04:38 68 05/27/24 04:38 05/27/24 04:38 36.9 C 66 20 156/78 H 95 05/27/24 04:00 69 16 136/52 L 96 05/27/24 03:45 68 19 98 05/27/24 03:00 61 14 151/78 H 92 05/27/24 02:59 63 133/85 05/27/24 02:20 63 20 133/85 92 05/27/24 00:37 67 21 167/74 H 95 05/27/24 00:37 05/27/24 00:34 70 05/27/24 00:25 75 L 05/27/24 00:24 36.6 C 79 32 H 201/74 H 75 L O2 Del Method O2 Flow Rate 05/27/24 07:43 Nasal Cannula 3 05/27/24 07:04 05/27/24 06:50 Nasal Cannula 4 05/27/24 04:38 Nasal Cannula 4 05/27/24 04:38 05/27/24 04:38 Nasal Cannula 4 05/27/24 04:38 Nasal Cannula 4 05/27/24 04:00 05/27/24 03:45 05/27/24 03:00 05/27/24 02:59 05/27/24 02:20 Nasal Cannula 6 05/27/24 00:37 Nebulizer 15 05/27/24 00:37 Nebulizer 15 05/27/24 00:34 05/27/24 00:25 Oxymask 05/27/24 00:24 Room Air Laboratory Results CBC, renal Panel, Urine tests, ECHO and CXR reviewed. Diagnostic Findings chest x-ray shows pleural effusion as well as pulmonary congestion echo was reviewed and shows normal ejection fraction normal size left atrium and normal shows IVC but there is presence of diastolic dysfunction
[2024-05-27 11:24] LABS: Troponin I High Sensitivity 16.3 pg/ml (0-14)
--- NOTE | 2024-05-27 11:27 | Cardiology Consultation ---
Date of Consultation May 27, 2024 Assessment & Plan (1) GARLAND (acute kidney injury): (2) Acute hypoxemic respiratory failure: (3) Hypoxia: (4) Pneumonia: (5) Dyspnea: (6) Stenosis of abdominal aorta: (7) Acute on chronic diastolic heart failure with preserved ejection fraction: (8) Hypertensive urgency: (9) Elevated troponin: Plan Markedly complex 59-year-old female admitted with recurrent acute hypoxic respiratory failure, possible underlying pneumonitis, acute decompensated diastolic congestive heart failure with associated right greater than left pleural effusions. Laboratory work notable for recurrent hyponatremia, acute on chronic renal dysfunction. Patient with known underlying near occlusion of the infrarenal abdominal aorta with planned aortic endarterectomy by Dr. Wolf on June 27, 2024. Possible pneumonia treatment as per hospitalist. Need to coordinate IV diuresis with Nephrology. Further recommendations pending evaluation by Dr. Cuevas and patient's ongoing hospital course. Supervising Physician Co-Signing Physician Notes Attending attestation: Case reviewed with the advanced practitioner. I have personally performed a history and physical examination on the patient. I have reviewed the advanced practitioner's documentation on the date of service referenced in note, and I agree with, and take responsibility for the plan of care. Question of patient has multifactorial respiratory insufficiency with noted wheezing on physical examination. CT suggestive of centrilobular emphysema as well as CHF with moderate right and small left pleural effusions. Would consider course of corticosteroids in addition to diuretic therapy. Continue subcutaneous heparin for DVT prophylaxis. Respiratory status needs to be optimized before consideration of complex vascular surgery which is tentatively scheduled to be performed at [facility] [place] in a month. Daniel Cuevas DO History of Present Illness Reason for Consultation: CHF Requesting Physician: Dr. Rowell Attending Physician: Dr. Abdi Robles, History of Present Illness Ms. eMlissa Carpenter is a very complex 59-year-old female who presented to the [facility] ER in policy issue clerk hours of May 27, 2024 with acute on chronic dyspnea. Patient notes that 2 nights ago she began to experience orthopnea and PND. She notes trying her rescue inhaler as well as nebulizer without improvement. Patient notes "I started with that I could not catch my breath again and now they said I got the pneumonia again." Patient describes a cough productive of green/yellow sputum without fevers or chills, orthopnea, intermittent PND, mild intermittent lower extremity peripheral edema. She denies chest pain, tachypalpitations, dizziness or syncope. SpO2 was 74% on presentation, improving to 92% with supplemental oxygen. Initial blood pressure was 201/74. EKG revealed normal sinus rhythm at 69 bpm with nonspecific T wave changes, QTc 452 ms. High-sensitivity troponin elevated 14.1 -> 33.6 -> 16.3 pg/mL. Resting echocardiography revealed normal LV systolic function, EF 55 to 60%, without regional wall motion abnormalities. Mild concentric LVH was noted along with mild tricuspid regurgitation. Estimated PASP was 30 to 40 mmHg which is normal to mildly elevated. Grade 2 diastolic dysfunction noted along with a chronic trivial circumferential pericar dial effusion of nonhemodynamic significance. Significant hyponatremia noted with a sodium of 124. Creatinine elevated at 1.61. Imaging of the chest revealed moderate right, small left pleural effusions with adjacent compressive atelectasis and interstitial changes felt to be due to interstitial pulmonary edema, underlying severe upper lobe predominant central lobar emphysema. Patient currently scheduled for aortic endarterectomy by Dr. 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 Father committed suicide. Social History: Reformed smoker, 40 pack years. Social alcohol. No illegal drug use. Allergies Allergy/AdvReac Type Severity Reaction Status Date / Time Bactrim Allergy Intermediate HIVES Verified 07/26/15 07:15 Sulfa (Sulfonamide Allergy Intermediate BACTRIM- Verified 05/27/24 02:11 Antibiotics) HIVES sulfamethoxazole Allergy Intermediate HIVES Verified 05/27/24 02:11 trimethoprim Allergy Intermediate HIVES Verified 05/27/24 02:11 metaxalone Allergy Unknown Unknown Verified 05/27/24 02:11 morphine Allergy Unknown . Verified 05/27/24 02:11 neomycin Allergy Unknown Unknown Verified 05/27/24 02:11 Quinolones Allergy Unknown Unknown Verified 05/27/24 02:11 tetracycline Allergy Unknown Hives Verified 05/27/24 02:11 amoxicillin [From Augmentin] Allergy Hives Verified 05/27/24 02:11 clavulanic acid Allergy Hives Verified 05/27/24 02:11 [From Augmentin] umeclidinium Allergy Hives Verified 05/27/24 02:11 [From Anoro Ellipta] vilanterol Allergy Unknown Verified 05/27/24 02:11 [From Anoro Ellipta] erythromycin base AdvReac Unknown Nausea Verified 05/27/24 02:23 moxifloxacin AdvReac Unknown hives Verified 05/27/24 02:11 Home Medications Medication Instructions Recorded Confirmed Type aripiprazole 5 mg tablet (Abilify) 5 mg PO DAILY 12/03/19 05/27/24 History aspirin 81 mg tablet 81 mg PO DAILY 02/04/20 05/27/24 History cetirizine 10 mg tablet 10 mg PO DAILY 02/04/20 05/27/24 History clonazepam 0.5 mg tablet 0.5 mg PO BID PRN Anxiety 02/04/20 05/27/24 History amlodipine 10 mg tablet 10 mg PO DAILY 08/01/21 05/27/24 History atorvastatin 20 mg tablet 20 mg PO DAILY 06/11/23 05/27/24 History carvedilol 25 mg tablet 25 mg PO BID 06/11/23 05/27/24 History paroxetine HCl 40 mg tablet 40 mg PO DAILY 06/11/23 05/27/24 History albuterol sulfate 2.5 mg/3 mL 2.5 mg (3 mL) inhalation Q4H PRN 06/15/23 05/27/24 Rx (0.083 %) solution for nebulization shortness of breath or wheezing #180 mL benzonatate 100 mg capsule 100 mg PO TID PRN cough #20 caps 06/15/23 05/27/24 Rx hydralazine 50 mg tablet 50 mg PO TID #90 tabs 06/15/23 05/27/24 Rx terazosin 1 mg capsule 2 mg (2 x 1 mg) PO HS #30 caps 06/15/23 05/27/24 Rx umeclidinium 62.5 mcg/actuation 1 inh inhalation DAILY #90 puffs 07/10/23 05/27/24 Rx blister powder for inhalation (Incruse Ellipta) acetaminophen 650 mg 650 mg PO Q8H PRN Pain 10/21/23 05/27/24 History tablet,extended release albuterol sulfate 90 mcg/actuation 2 puff inhalation Q4H PRN 01/04/24 05/27/24 Rx aerosol inhaler (Ventolin HFA) shortness of breath ,coughing or wheezing #18 grams furosemide 40 mg tablet 20 mg PO BID 05/27/24 05/27/24 History losartan 50 mg PO BID 05/27/24 05/27/24 History Patient History Medical History Anaphylaxis History of temporomandibular joint disorder GERD (gastroesophageal reflux disease) Bipolar disorder Breast fibroadenoma Heterozygous for prothrombin [id number] mutation Pulmonary nodule Arthritis Allergic rhinitis Lumbar stenosis (09/25/14) Surgical History History of D&C History of lumbar surgery H/O breast surgery H/O splenectomy Family History Father Hypertension Mother Lung cancer Other Breast cancer COPD (chronic obstructive pulmonary disease) Diabetes Social History Smoking Status: Former smoker Tobacco Type: Cigarettes Age Quit Using Tobacco: 58; Cigarettes Per Day: 3; Second Hand Exposure: No; Hx Alcohol Use: No Hx Substance Use: No Preferred Language: [place] Timorese Communication Ability: Effective Motor Tester Required: No Beliefs That Will Affect Care: None marital status: Current Living Situation: Spouse current occupational status: disabled Other Information That Helps Us Care for You: No Feels Safe at Home: Yes Safety Concerns: Feels Safe At This Time Assistive Devices: Nebulizer Review of Systems Review of Systems: Complete Review of Systems: Unable to be obtained. Physical Exam Physical Exam: General: Alert to person and place but not to time. Lethargic. HENT: Periorbital edema. Normocephalic. Atraumatic. Eyes: PER. Conjunctiva pink, sclera clear. Neck: No JVD. Heart: Regular at 70 bpm. No murmur. No rub. Lungs: Decreased. Diminished. Clear. Abdomen: +BS. Soft. Nontender. No masses or organomegaly. Extremities: No clubbing, cyanosis, or edema. Limited neurological examination is without focal deficits. Pulses: radial=2/4, posterior tibial=1/4. Results & Data Vital Signs (Past 12 Hours) Vital Signs Temp Pulse Pulse Resp BP BP Pulse Ox 05/27/24 07:43 73 13 95 05/27/24 07:04 71 05/27/24 06:50 65 16 98 05/27/24 04:38 20 156/78 H 95 05/27/24 04:38 68 05/27/24 04:38 05/27/24 04:38 36.9 C 66 20 156/78 H 95 05/27/24 04:00 69 16 136/52 L 96 05/27/24 03:45 68 19 98 05/27/24 03:00 61 14 151/78 H 92 05/27/24 02:59 63 133/85 05/27/24 02:20 63 20 133/85 92 05/27/24 00:37 67 21 167/74 H 95 05/27/24 00:37 05/27/24 00:34 70 05/27/24 00:25 75 L 05/27/24 00:24 36.6 C 79 32 H 201/74 H 75 L O2 Del Method O2 Flow Rate 05/27/24 07:43 Nasal Cannula 3 05/27/24 07:04 05/27/24 06:50 Nasal Cannula 4 05/27/24 04:38 Nasal Cannula 4 05/27/24 04:38 05/27/24 04:38 Nasal Cannula 4 05/27/24 04:38 Nasal Cannula 4 05/27/24 04:00 05/27/24 03:45 05/27/24 03:00 05/27/24 02:59 05/27/24 02:20 Nasal Cannula 6 05/27/24 00:37 Nebulizer 15 05/27/24 00:37 Nebulizer 15 05/27/24 00:34 05/27/24 00:25 Oxymask 05/27/24 00:24 Room Air Laboratory Results Cardiac Enzymes 05/27/24 05/27/24 05/27/24 Range/Units 00:44 04:17 10:35 AST 19 (13-39) U/L Troponin I High Sens 14.1 H 33.6 H D 16.3 H D (0-14) pg/ml CBC 05/27/24 05/27/24 Range/Units 00:44 04:17 WBC 10.81 H 9.92 (4.8-10.8) K/ul RBC 3.51 L 3.32 L (4.20-5.40) M/uL Hgb 10.0 L 9.6 L (12.0-16.0) g/dl Hct 29.7 L 27.5 L (37.0-47.0) % Plt Count 189 176 (130-400) K/uL Neut # (Auto) 8.09 H 8.83 H (1.40-6.50) K/uL Lymph # (Auto) 1.78 0.83 L (1.20-3.40) K/uL [place] # (Auto) 0.66 H 0.16 (0.11-0.59) K/uL Eos # (Auto) 0.14 0.03 (0.00-0.50) K/uL Baso # (Auto) 0.10 0.04 (0.00-0.20) K/uL Comprehensive Metabolic Panel 05/27/24 05/27/24 05/27/24 Range/Units 00:44 04:17 10:35 Sodium 126 L 124 L 124 L (136-145) mmol/L Potassium 4.3 4.3 (3.5-5.1) mmol/L Chloride 93 L 93 L (98-107) mmol/L Carbon Dioxide 23 21 (21-32) mmol/L BUN 32 H 35 H (6-23) mg/dl Creatinine 1.77 H 1.61 H (0.6-1.2) mg/dl Glucose 129 H 145 H (70-99(Fasting)) mg/dl Calcium 8.2 L 8.2 L (8.6-10.3) mg/dl AST 19 (13-39) U/L ALT 13 (7-52) U/L Alkaline Phosphatase 74 (34-104) U/L Total Protein 6.8 (6.0-8.3) gm/dl Albumin 4.4 (3.4-5.0) gm/dl Intake and Output 05/26/24 05/27/24 05/27/24 22:59 06:59 14:59 Intake Total 986 / 986 919.25 / 919.25 Balance 986 / 986 919.25 / 919.25 Intake: IV 986 / 986 919.25 / 919.25 Albumin 25% 12.5 gm In 50 ml @ 50 / 50 50 mls/hr IV ONE ONE Rx#: [id number] Azithromycin 500 mg In Dextrose 255 / 255 5% 250 ml @ 127.5 mls/hr IV NOW STA Rx#:[id number] Magnesium Sulfate / D5w 1 gm In 100 / 100 100 ml @ 100 mls/hr IV NOW STA Rx#:[id number] Promethazine 6.25 mg In 50.25 50.25 / 50.25 ml @ 201 mls/hr IV Q6H PRN Rx#: [id number] Sodium Chloride 0.9% 1,000 ml @ 581 / 581 819 / 819 60 mls/hr IV .[id number] ONE Rx#: [id number] cefTRIAXone SODIUM 2,000 mg In 50 / 50 50 ml @ 100 mls/hr IV NOW STA Rx#:[id number] Other: Weight 59.2 kg Weight Measurement Method Built in [facility] Diagnostic Findings Pharmacologic Nuclear Stress Report 03/05/2024: Quality of the study is poor with significant extracardiac uptake of isotopic tracer adjacent to the mid and apical inferior, and inferolateral lou. There is a small reversible defect involving the mid lateral wall suggestive of ischemia, although ramp filter artifact can not be excluded. Dobutamine stress echo 03/13/2024: The stress echo is negative for inducible ischemia. The low heart rate response to stress reduces the sensitivity of this test for the detection of coronary artery disease or ischemia. There is a mildly blunted heart rate response to maximal dose dobutamine/atropine stress protocol secondary to medical therapies. Patient ultimately achieving 82% age predicted maximum heart rate. Blood pressure response was hypertensive The stress EKG response showed no evidence of ischemia. The left ventricular wall motion is normal. The left ventricular wall motion with stress is normal. The left ventricular ejection fraction increases normally with stress. The left ventricular systolic function is normal. The qualitative LV ejection fraction is 55-59% (normal). The LV wall thickness is moderately increased (concentric). March 2024 CTA of the chest ([employer]) 1. Severe calcified atheromatous disease results in near occlusion of the suprarenal abdominal aorta with multifocal areas of reconstitution, about the level of the renal arteries. Severe calcified atheromatous disease again noted in the infrarenal abdominal aorta resulting in severe stenosis/near occlusion overall findings are grossly unchanged since at least 12/06/2023. 2. Severe calcified atheromatous disease results in greater than 75% luminal narrowing/near occlusion of the bilateral common iliac arteries. 3. Solid pulmonary nodule in the left lower lobe measuring up to 0.8 cm. Ground- glass nodule at the left lung base measuring up to 0.[address] thorax in 6 months is recommended to evaluate for stability. 4. Multi station mediastinal and right hilar lymphadenopathy, nonspecific and grossly stable from prior examination. 5. Ground-glass opacity in the right middle lobe, likely infectious/inflammatory, attention on follow-up imaging. Continuous telemetry monitoring notable for a very brief episode of type I second-degree heart block followed by very brief episode of 2-1 AV block
--- NOTE | 2024-05-27 13:30 | Hospitalist Progress Note ---
Date of Service May 27, 2024 Assessment & Plan (1) Acute hypoxemic respiratory failure: (2) GARLAND (acute kidney injury): (3) Acute on chronic diastolic heart failure with preserved ejection fraction: (4) Hyponatremia: (5) Hypertension, uncontrolled: (6) Pulmonary emphysema: (7) History of adenocarcinoma of lung: (8) Heterozygous factor V Leiden mutation: Plan: Not on chronic anticoagulation Plan Patient presents to the emergency room with acute hypoxic respiratory failure with additional findings acute kidney injury and hyponatremia and evident evidence of decompensated heart failure. Cardiology and nephrology consultations noted Monitor renal and sodium levels Hyponatremia suspicious for SIADH, additional laboratory studies pending, patient has multiple comorbidities as possible etiologies for SIADH including history of lung cancer, COPD. Titrate oxygen as able Procalcitonin low, discontinue antibiotics and observe Add Breo inhaler for COPD, patient does not seem to be in severe COPD exac erbation, will hold on systemic steroids at this time. Continue to monitor laboratory studies Continue to monitor blood pressure, adjust antihypertensives as needed Admission and Anticipated Discharge Date Admission Date: May 27, 2024 Subjective Patient states she feels a little bit better. Denies chest pain or shortness of breath Physical Exam Physical Exam: Constitutional: Alert HEENT: Mucous membranes moist., Eyelids edematous and puffy Lungs: decreased breath sounds, prolonged expiratory phase, rare wheeze CV: S1-S2, regular Abdomen: Soft, nontender, nondistended Extremities: No significant edema Neuro: No focal deficits Psych: Cooperative, normal mood Results & Data Results & Data Vital Signs (Past 12 Hours) Vital Signs Temp Pulse Pulse Resp BP BP Pulse Ox 05/27/24 11:55 05/27/24 11:42 76 15 96 05/27/24 11:30 72 20 96 05/27/24 11:15 81 17 95 05/27/24 10:45 75 15 96 05/27/24 10:30 70 14 95 05/27/24 10:21 72 14 93 05/27/24 10:18 71 15 93 05/27/24 09:54 106 H 22 93 05/27/24 09:45 78 15 96 05/27/24 09:21 87 18 95 05/27/24 09:15 147/99 H 05/27/24 09:09 72 15 98 05/27/24 09:03 83 14 95 05/27/24 08:51 79 22 96 05/27/24 08:36 77 12 95 05/27/24 08:12 83 12 92 05/27/24 08:09 77 14 93 05/27/24 07:51 75 13 98 05/27/24 07:48 71 13 98 05/27/24 07:43 73 13 95 05/27/24 07:24 78 16 99 05/27/24 07:18 66 12 99 05/27/24 07:04 71 05/27/24 07:00 65 13 98 05/27/24 06:57 69 13 95 05/27/24 06:50 65 16 98 05/27/24 05:12 96 05/27/24 05:06 96 05/27/24 04:57 96 05/27/24 04:42 96 05/27/24 04:38 20 156/78 H 95 05/27/24 04:38 68 05/27/24 04:38 05/27/24 04:38 36.9 C 66 20 156/78 H 95 05/27/24 04:00 69 16 136/52 L 96 05/27/24 03:45 68 19 98 05/27/24 03:00 61 14 151/78 H 92 05/27/24 02:59 63 133/85 05/27/24 02:20 63 20 133/85 92 Pulse Ox O2 Del Method O2 Del Method O2 Flow Rate O2 Flow Rate 05/27/24 11:55 96 Nasal Cannula 2 05/27/24 11:42 05/27/24 11:30 05/27/24 11:15 05/27/24 10:45 05/27/24 10:30 05/27/24 10:21 05/27/24 10:18 05/27/24 09:54 05/27/24 09:45 05/27/24 09:21 05/27/24 09:15 05/27/24 09:09 05/27/24 09:03 05/27/24 08:51 05/27/24 08:36 05/27/24 08:12 05/27/24 08:09 05/27/24 07:51 05/27/24 07:48 05/27/24 07:43 Nasal Cannula 3 05/27/24 07:24 05/27/24 07:18 05/27/24 07:04 05/27/24 07:00 05/27/24 06:57 05/27/24 06:50 Nasal Cannula 4 05/27/24 05:12 05/27/24 05:06 05/27/24 04:57 05/27/24 04:42 05/27/24 04:38 Nasal Cannula 4 05/27/24 04:38 05/27/24 04:38 Nasal Cannula 4 05/27/24 04:38 Nasal Cannula 4 05/27/24 04:00 05/27/24 03:45 05/27/24 03:00 05/27/24 02:59 05/27/24 02:20 Nasal Cannula 6 Diagnostic Findings Reviewed imaging, laboratory and diagnostic studies. Pertinent findings as below. Echocardiogram reviewed, normal ejection fraction, grade 2 diastolic dysfunction, trace pericardial effusion, no evidence of tamponade Critical Care Time Prolonged Care Time 40, reviewing records, coordinating care, communication with specialists (6) Pulmonary emphysema Emphysema type: centrilobular Qualified Code(s): J43.2 - Centrilobular emphysema
[2024-05-27] MEDS: HEPARIN SOD 5,000 UNIT/0.5 ML VIAL SQ SCH (14:01)
[2024-05-27] MEDS: ALBUT/IPRATROP 3MG/0.5MG NEB 3 ML VIAL NEB PRN (14:01)
[2024-05-27 14:52] LABS: Calcium 8.2 mg/dl (8.6-10.3); Potassium 4.4 mmol/L (3.5-5.1)
[2024-05-27 14:58] LABS: BUN Creatinine Ratio 22.9 (10-20); Creatinine Clr Calc Pharmacy 30.9 ml/min; Est GFR (African American) 41.7 ml/min
[2024-05-27] MEDS: TERAZOSIN HCL 1 MG CAP PO SCH (19:48)
[2024-05-27] MEDS: FLUTICASONE/VILANTEROL 100/25MCG 14 PUFFS/INHALER INH SCH (19:48)
[2024-05-27] MEDS: clonazePAM 0.5 MG TAB PO PRN (20:05)
[2024-05-27] MEDS: guaiFENesin 600 MG TABCR PO SCH (21:23)
[2024-05-27 23:28] LABS: Appearance Urine Clear (Clear); Bacteria Urine Automated None Seen (None Seen); Bilirubin Urine Negative (Negative); Blood Urine Negative (Negative); Cast Urine Automated 0-2 /lpf (0-2); Color Urine Yellow; Glucose Urine UA Negative (Negative); Ketones Urine Negative (Negative); Leukocyte Esterase Urine Trace (Negative); Nitrite Urine Negative (Negative); Protein Urine Negative (Negative); RBC Urine Automated 0-2 /hpf (0-2); Specific Gravity Urine 1.014 (1.000-1.030); Urobilinogen Urine Negative (Negative); WBC Urine Automated 0-5 /hpf (0-5)
--- NOTE | 2024-05-28 01:33 | CT Scan Report ---
Exam(s): CT FACIAL Without Contrast EXAM: CT Maxillofacial Without Intravenous Contrast CLINICAL HISTORY: Reason for exam: swelling. TECHNIQUE: Axial computed tomography images of the face without intravenous contrast. CTDI is 36.3 mGy and DLP is 648.2 mGy-cm. Automated exposure control was utilized for the study. A dose lowering technique was utilized adhering to the principles of ALARA. COMPARISON: No relevant prior studies available. FINDINGS: Bones/joints: Surgical changes from previous left temporomandibular joint arthroplasty. There is severe degenerative changes involve the right temporomandibular joint. No facial fracture is identified. Soft tissues: Mild preseptal soft tissue edema involving the left orbit suggesting preseptal orbital cellulitis. Orbits: The globes are symmetrical. The retrobulbar soft tissues are normal. Sinuses: Unremarkable. No air-fluid levels. Dental: The patient is edentulous. IMPRESSION: 1. No facial fracture is identified. 2. Mild preseptal soft tissue edema involving the left orbit suggesting preseptal orbital cellulitis. 3. Surgical changes from previous left temporomandibular joint arthroplasty. There is severe degenerative changes involve the right temporomandibular joint. Electronically signed by: Abdirahman Cheema MD 05/28/24 01:32 AM
--- NOTE | 2024-05-28 02:28 | Communication Note ---
Date of Service: May 28, 2024 Patient noted to have left-sided facial swelling as per RN. No headache, no eye pain, no blurred vision complaints as per patient. No head trauma from fall at home a few days ago. Sinus congestion symptoms 2 days ago as per patient. Maxillofacial CT 1. No facial fracture is identified. 2. Mild preseptal soft tissue edema involving the left orbit suggesting preseptal orbital cellulitis. AP Preseptal/orbital cellulitis, left No sepsis for now Vancomycin and ceftriaxone Ophthalmology consult if without improvement
[2024-05-28] MEDS ORDERED: CEFUROXIME IV SCH (02:30)
[2024-05-28] MEDS: carvediloL 6.25 MG TAB PO ONE (03:58)
[2024-05-28] MEDS: CEFUROXIME IV SCH (03:59)
[2024-05-28] MEDS: DEXTROSE 5% IV SCH (03:59)
[2024-05-28] MEDS: FUROSEMIDE 40 MG/4 ML VIAL IV ONE ×3 (04:36→13:19)
[2024-05-28 04:42] LABS: Hematocrit (blood only) 26.7 % (37.0-47.0); Hemoglobin 9.3 g/dl (12.0-16.0); Mean Corpuscular Hemoglobin 28.5 pg (25.0-34.0); Mean Corpuscular Hgb Conc 34.8 g/dL (32.0-36.0); Mean Corpuscular Volume 81.9 fL (80.0-100.0); Mean Platelet Volume 11.5 fL (9.4-12.4); Platelet Count 203 K/uL (130-400); RDW Coefficient of Variation 14.6 % (11.5-14.5); Red Blood Count 3.26 M/uL (4.20-5.40); White Blood Count 12.02 K/ul (4.8-10.8)
[2024-05-28 04:49] LABS: HCO3 ABG 23 mmol/L (19-24); PCO2 ABG 42 mmHg (35-46); PO2 ABG 66 mmHg (80-95); pH ABG 7.34 (7.35-7.45)
[2024-05-28 04:51] LABS: Allen Test Pos (Pos)
[2024-05-28 05:04] LABS: BUN Creatinine Ratio 23.5 (10-20); Calcium 8.5 mg/dl (8.6-10.3); Creatinine Clr Calc Pharmacy 32.5 ml/min; Est GFR (African American) 44.4 ml/min; Est GFR (Non-African American) 38.3 ml/min; Potassium 4.5 mmol/L (3.5-5.1)
[2024-05-28] MEDS ORDERED: VANCOMYCIN CONSULT ACTIVE PRN (07:17)
[2024-05-28] MEDS ORDERED: VANCOMYCIN HCL 1,000 MG in SODIUM CHLORIDE 0.9% 250 ML IV STA (07:17)
[2024-05-28] MEDS: VANCOMYCIN HCL 1,000 MG in SODIUM CHLORIDE 0.9% 250 ML IV ONE (08:04)
[2024-05-28] MEDS: ATORVASTATIN 20 MG TAB PO SCH (08:11)
--- NOTE | 2024-05-28 08:14 | XRay Report ---
SINGLE VIEW CHEST CLINICAL HISTORY: Dyspnea FINDINGS: An AP, portable, upright chest radiograph is compared to chest x-ray and chest CT dated 05/02. The heart is enlarged noting atherosclerotic calcification of the thoracic aorta. There is pu lmonary vascular congestion. Emphysema and chronic interstitial thickening is similar to previous. Th ere are bilateral pleural effusions with dependent consolidation, right greater than left. Elevation of left hemidiaphragm is similar to previous. No pneumothorax is seen. The skeletal structures are os teopenic. The bony thorax is grossly intact. IMPRESSION: 1. Cardiomegaly with evidence of congestive failure. 2. Emphysema. 3. Right larger than left pleural effusions with dependent consolidation. Radiographic follow-up to r tomer is recommended ACT 112: Negative or not required by law. Electronically signed by: Rudi Dobbs M.D. 05/28/2024 8:12 AM
[2024-05-28] MEDS: ALBUTEROL 0.083% NEBU SOLN 3 ML VIAL INH SCH ×2 (08:53→11:34)
[2024-05-28] MEDS ORDERED: methylPREDNISolone 1000 MG/16 ML IV SCH (09:00)
[2024-05-28] MEDS ORDERED: AZITHROMYCIN 250 MG TAB PO SCH (09:00)
[2024-05-28] MEDS ORDERED: methylPREDNISolone 40 MG in SYRINGE 0 ML IV SCH (09:00)
--- NOTE | 2024-05-28 09:25 | Pharmacy Report ---
Pharmacy PK ABX Note - Date of Service May 28, 2024 - Assessment and Plan Assessment 59 year old F receiving vancomycin and ceftriaxone for treatment of preseptal orbital cellulitis. Pertinent microbiologic data includes: none. Day # 1 of antimicrobial therapy. Plan Vancomycin * Loading dose: 1000 mg IV x 1 * Maintenance dose: 750 mg IV every 24 hours * Regimen is predicted to achieve target AUC/ESPERANZA of 400-600 mg/L.hr * Random level ordered for: 05/29/2024 at 0444 Pharmacy will continue to follow and will adjust dose/frequency as necessary. Thank you. Pharmacy has transitioned to AUC monitoring for vancomycin. AUC/ESPERANZA is the preferred PK/PD target and is associated with decreased risk of nephrotoxicity compared to traditional trough targets.
[2024-05-28] MEDS: cefTRIAXone SODIUM 2,000 MG/50 ML BAG IV SCH (10:03)
--- NOTE | 2024-05-28 10:03 | Nephrology Progress Note ---
Date of Service May 28, 2024 Assessment & Plan Admission and Anticipated Discharge Date Admission Date: May 27, 2024 Subjective Assessment & Plan (1) GARLAND (acute kidney injury): on admission creatinine was 1.7 which is higher than her baseline of normal. however her renal function has been all over the place in the last few months with some episodes of acute kidney injury also. Most recent outpatient lab was from May 07, 2024 and showed a creatinine of 1.4. looking at the trend this can be regarded as her baseline. on admission it was 1.7 but it is already trending down to 1.6. Etiology of acute kidney injury is most likely hemodynamic in the setting of respiratory failure and decompensated heart failure. no further workup is needed for the etiology of acute kidney injury. Creat today is better at 1.5 she does need daily renal panel as well as strict input output charting. given her symptoms as well as radiological finding it is reasonable to give her Lasix for treatment of CHF (2) Acute hyponatremia: have to assume this as hypervolemic hyponatremia in the setting of decompensated congestive heart failure. na 125 so has not dropped at least--slight improvement the treatment of this is IV Lasix and diuresis. urine sodium 11 and urine osmolarity 391--however in Setting Of CHF neither tests are of any clinical Value. (3) Acute hypoxemic respiratory failure: (4) Acute on chronic diastolic heart failure with preserved ejection fraction: o2 need has got worse and also very SOB. she has acute respiratory failure and requiring 10 L oxygen. likely combination of cardiac as well as pulmonary issues causing this respiratory failure. radiologically she looks like she has congestive heart failure with pleural effusion pulmonary congestion and pericardial effusion but then lot of findings we expect in the echocardiogram with CHF are absent. for now will need to treat as both cardiac ( CHF) and Pulmonary with Abx, nebs and Steroid. cardiology note was reviewed in detail and agree with coordination with Nephrology regarding diuretics dosing. also consider pulmonary consult given her prior history of complicated pulmonar y issues and worsened o2 need For now will do Lasix 40 mg IV q.8 hours. depending on the response will titrate further Plan discussed with Primary team and in agreement. S--was quite SOB earlier today. got lasix 40 mg iv.needing a lot of o2 and BP is high. Physical examination middle-aged white female who looks older a chronically ill. She does have facial puffiness and resting shortness of breath. awake and alert oriented x3 mucous membrane is moist neck is supple no JVD chest bilateral decreased breath sound but very diminished in the left with bilateral rhonchi and crackles. CVS S1-S2 regular no murmur heard abdomen is soft nontender extremities without edema Results & Data Vital Signs (Past 12 Hours) Vital Signs Temp Pulse Resp BP BP Pulse Ox O2 Del Method 05/28/24 09:05 Oxymask 05/28/24 07:58 85 28 H 91 Nasal Cannula 05/28/24 07:07 36.4 C L 77 20 175/74 H 92 Nasal Cannula 05/28/24 05:00 93 Nasal Cannula 05/28/24 04:30 84 24 178/74 H 91 Nasal Cannula 05/28/24 04:11 82 26 H 89 L Nasal Cannula 05/28/24 03:28 36.6 C 80 22 181/87 H 93 Nasal Cannula 05/27/24 22:25 36.5 C 80 20 161/74 H 93 Nasal Cannula O2 Flow Rate 05/28/24 09:05 10 05/28/24 07:58 13 05/28/24 07:07 5 05/28/24 05:00 5 05/28/24 04:30 5 05/28/24 04:11 5 05/28/24 03:28 3 05/27/24 22:25 3
[2024-05-28] MEDS: FUROSEMIDE 40 MG/4 ML VIAL IV SCH (10:43)
--- NOTE | 2024-05-28 10:57 | Cardiology Progress Note ---
Date of Service May 28, 2024 Assessment & Plan (1) Acute hypoxemic respiratory failure: (2) Acute on chronic diastolic heart failure with preserved ejection fraction: (3) Acute exacerbation of chronic obstructive pulmonary disease: (4) Hypertensive urgency: (5) Pleural effusion: Plan 1. IV furosemide, 40 mg every 8 hours 2. Strict monitoring of I's/O's and daily weights on the same standing scale 3. Daily laboratory work, metabolic panels 4. Increase hydralazine to 75 mg 3 times per day for additional blood pressure control Admission and Anticipated Discharge Date Admission Date: May 27, 2024 Supervising Physician Co-Signing Physician Notes Attending attestation: Case reviewed with the advanced practitioner. I have personally performed a history and physical examination on the patient. I have reviewed the advanced practitioner's documentation on the date of service referenced in note, and I agree with, and take responsibility for the plan of care. Continue diuretic therapy, Abluterol, Methylprednesolone, Breo Elipta, Rocephin. SQ heparin for DVT prophylaxis. Daniel Cuevas, Subjective Patient seen and examined. Chart, medications, telemetry reviewed Feeling "rough." Received 60 mg IV furosemide earlier this morning (05/28/2024 @ 04:36) with some improvement in dyspnea Telemetry: Sinus with heart rates ranging from 60-90, predominantly in the 70s. Resting echocardiography with preserved LV systolic function, EF 55 to 60%, with mild concentric LVH, mild TR, normal to mildly elevated pulmonary artery systolic pressure (30 to 40 mmHg), grade 2 diastolic dysfunction Review of Systems Review of Systems: Complete Review of Systems is as stated above, negative, or noncontributory. Physical Exam Physical Exam: General: A&Ox3. HENT: Improved periorbital edema. Normocephalic. Atraumatic. Eyes: PER. Conjunctiva pink, sclera clear. Neck: JVD. Heart: Regular at 76 bpm. No murmur. No rub. Lungs: Diffuse expiratory wheeze. Decreased. Diminished. Right basilar rales. Abdomen: +BS. Soft. Nontender. No masses or organomegaly. Extremities: No clubbing, cyanosis, or edema. Limited neurological examination is without focal deficits. Pulses: radial=2/4, posterior tibial=1/4. Results & Data Vital Signs (Past 12 Hours) Vital Signs Temp Pulse Pulse Resp BP BP Pulse Ox 05/28/24 09:05 05/28/24 07:58 85 28 H 91 05/28/24 07:30 83 05/28/24 07:07 36.4 C L 77 20 175/74 H 92 05/28/24 05:00 93 05/28/24 04:30 84 24 178/74 H 91 05/28/24 04:11 82 26 H 89 L 05/28/24 03:28 36.6 C 80 22 181/87 H 93 O2 Del Method O2 Flow Rate 05/28/24 09:05 Oxymask 10 05/28/24 07:58 Nasal Cannula 13 05/28/24 07:30 05/28/24 07:07 Nasal Cannula 5 05/28/24 05:00 Nasal Cannula 5 05/28/24 04:30 Nasal Cannula 5 05/28/24 04:11 Nasal Cannula 5 05/28/24 03:28 Nasal Cannula 3 Laboratory Results Cardiac Enzymes 05/27/24 Range/Units 10:35 Troponin I High Sens 16.3 H D (0-14) pg/ml CBC 05/28/24 Range/Units 04:29 WBC 12.02 H (4.8-10.8) K/ul RBC 3.26 L (4.20-5.40) M/uL Hgb 9.3 L (12.0-16.0) g/dl Hct 26.7 L (37.0-47.0) % Plt Count 203 (130-400) K/uL Comprehensive Metabolic Panel 05/27/24 05/27/24 05/28/24 Range/Units 10:35 14:33 04:29 Sodium 124 L 124 L 125 L (136-145) mmol/L Potassium 4.4 4.5 (3.5-5.1) mmol/L Chloride 93 L 93 L (98-107) mmol/L Carbon Dioxide 22 23 (21-32) mmol/L BUN 36 H 35 H (6-23) mg/dl Creatinine 1.57 H 1.49 H (0.6-1.2) mg/dl Glucose 168 H 145 H (70-99(Fasting)) mg/dl Calcium 8.2 L 8.5 L (8.6-10.3) mg/dl Intake and Output 05/27/24 05/28/24 05/28/24 22:59 06:59 14:59 Intake Total 100 / 1076.75 57.5 / 1076.75 320 / 320 Output Total 300 / 550 250 / 550 Balance -200 / 526.75 -192.5 / 526.75 320 / 320 Intake: IV 57.5 / 976.75 320 / 320 Vancomycin HCl 1,000 mg In 270 / 270 Sodium Chloride 0.9% 250 ml @ 200 mls/hr IV ONE ONE Rx#: [id number] cefTRIAXone SODIUM 2,000 mg In 50 / 50 50 ml @ 100 mls/hr IV Q24H [facility] Rx#:[id number] cefUROXime 750 mg In Dextrose 5 57.5 / 57.5 % 50 ml @ 115 mls/hr IV Q12H [facility] Rx#:[id number] Oral 100 / 100 Output: Urine 300 / 550 250 / 550 Other: Weight 59 kg Weight Measurement Method Standing Scale
[2024-05-28] MEDS: methylPREDNISolone 40 MG in SYRINGE 0 ML IV SCH (11:57)
--- NOTE | 2024-05-28 12:58 | Hospitalist Progress Note ---
Date of Service May 28, 2024 Assessment & Plan (1) Acute on chronic diastolic heart failure with preserved ejection fraction: Plan: Presented with worsening shortness of breath and noted to have Hypoxic respiratory failure secondary to acute on chronic diastolic heart failure and is complicated by acute exacerbation of COPD Appreciate cardiology input and recommendation Has been getting intravenous Lasix 40 mg every 8 hourly as per recommendation by the generator switchboard operator Clinically little better and will be monitored on the medical telemetry unit (2) Acute hypoxemic respiratory failure: (3) COPD exacerbation: Plan: Has significant emphysema on the x-ray Clinically has COPD exacerbation Will continue with regular bronchodilator and intravenous Solu-Medrol (4) GARLAND (acute kidney injury): Plan: Right to have GARLAND on CKD on admission with creatinine 1.7 Creatinine has been stable and usually better at 1.5 today Appreciate nephrology input and recommendation Will continue intravenous Lasix and monitor BMP daily (5) Hyponatremia: Plan: Also noted to have acute hyponatremia on presentation with level of 125 Likely secondary to SIADH Urine sodium noted to be 11 and osmolality 391 Seems to be hypervolemic hyponatremia Restrict oral fluid and also treated with intravenous Lasix (6) Hypertension, uncontrolled: Plan: Blood pressure remains elevated Medications are being adjusted (7) Pulmonary emphysema: Plan: If the respiratory status does not improve we will get pulmonary evaluation while in the hospital (8) History of adenocarcinoma of lung: (9) Heterozygous factor V Leiden mutation: Plan: Not on chronic anticoagulation Plan Progress note from prior hospitalist: Patient presents to the emergency room with acute hypoxic respiratory failure with additional findings acute kidney injury and hyponatremia and evident evidence of decompensated heart failure. Cardiology and nephrology consultations noted Monitor renal and sodium levels Hyponatremia suspicious for SIADH, additional laboratory studies pending, patient has multiple comorbidities as possible etiologies for SIADH including history of lung cancer, COPD. Titrate oxygen as able Procalcitonin low, discontinue antibiotics and observe Add Breo inhaler for COPD, patient does not seem to be in severe COPD exacerbation, will hold on systemic steroids at this time. Continue to monitor laboratory studies Continue to monitor blood pressure, adjust antihypertensives as needed Admission and Anticipated Discharge Date Admission Date: May 27, 2024 Subjective 05/28/2024 The patient was seen and examined in medical telemetry unit She was having more shortness of breath earlier this morning and was requiring 2 L oxygen by nasal cannula to maintain saturation She was noted to be hypoxic and showed widespread wheezing and crackles at the bases Denies any chest pain and/or palpitation Received nebulized bronchodilator, intravenous Lasix and intravenous Solu-Medrol and was feeling better Review of Systems Review of Systems: All systems reviewed and are unremarkable except as noted below Physical Exam Physical Exam: Lying in bed with acute distress due to shortness of breath Constitutional: + ill appearing and average body habitus Eyes: PERRL, conjunctivae normal, anicteric sclerae ENMT: external ear and nose normal, oropharynx normal Neck: trachea midline, no thyromegaly Respiratory: + respiratory distress Auscultation: + diminished lung sounds, + crackles and + wheezes Cardiovascular: Rate/Rhythm: regular rate and regular rhythm; not tachycardic Heart Sounds: normal S1 and normal S2; no murmur Extremities: + edema (Trace edema bilateral) Gastrointestinal (Abdomen): Inspection/Auscultation: normal bowel sounds; abdomen not distended Percussion/Palpation: abdomen soft; abdomen nontender Musculoskeletal: No acute arthritis involving of the joint Neurologic: normal touch/pain/proprioception and moves all extremities; no focal motor deficits Psychiatric: A+Ox3, euthymic affect Lymphatic: no cervical or axillary lymphadenopathy Results & Data Results & Data Vital Signs (Past 12 Hours) Vital Signs Temp Pulse Pulse Resp BP BP Pulse Ox 05/28/24 11:34 80 17 96 05/28/24 10:56 36.7 C 77 20 160/74 H 92 05/28/24 09:05 05/28/24 07:58 85 28 H 91 05/28/24 07:30 83 05/28/24 07:07 36.4 C L 77 20 175/74 H 92 05/28/24 05:00 93 05/28/24 04:30 84 24 178/74 H 91 05/28/24 04:11 82 26 H 89 L 05/28/24 03:28 36.6 C 80 22 181/87 H 93 O2 Del Method O2 Flow Rate 05/28/24 11:34 Nasal Cannula 10 05/28/24 10:56 High Flow Nasal Cannula 13 05/28/24 09:05 Oxymask 10 05/28/24 07:58 Nasal Cannula 13 05/28/24 07:30 05/28/24 07:07 Nasal Cannula 5 05/28/24 05:00 Nasal Cannula 5 05/28/24 04:30 Nasal Cannula 5 05/28/24 04:11 Nasal Cannula 5 05/28/24 03:28 Nasal Cannula 3 Laboratory Results Short CBC 05/28/24 Range/Units 04:29 WBC 12.02 H (4.8-10.8) K/ul Hgb 9.3 L (12.0-16.0) g/dl Hct 26.7 L (37.0-47.0) % Plt Count 203 (130-400) K/uL BMP 05/27/24 05/28/24 14:33 04:29 Sodium 124 L 125 L Potassium 4.4 4.5 Chloride 93 L 93 L Carbon Dioxide 22 23 BUN 36 H 35 H Creatinine 1.57 H 1.49 H Glucose 168 H 145 H Calcium 8.2 L 8.5 L Urine 05/27/24 Range/Units 22:50 Urine Color Yellow Urine Appearance Clear (Clear) Urine pH 5.0 (4.5-7.5) Ur Specific [place] 1.014 (1.000-1.030) Urine Protein Negative (Negative) Urine Glucose (UA) Negative (Negative) Medications Administered Current Inpatient Medications Acetaminophen (Acetaminophen 325 Mg Tab) 650 mg PO QID PRN PRN Reason: pain/fever Stop: 06/26/24 03:26 Albuterol (Albut/Ipratrop 3mg/0.5mg Neb 3 Ml Vial) 3 ml NEB Q2H PRN; Protocol PRN Reason: SOB/WHEEZING Stop: 06/26/24 03:41 Last Admin: 05/28/24 07:58 Dose: 3 ml Albuterol (Albuterol 0.083% Nebu Soln 3 Ml Vial) 2.5 mg INH Q4R MEDARDO; Protocol Stop: 06/27/24 08:29 Last Admin: 05/28/24 11:34 Dose: 2.5 mg Amlodipine Besylate (Amlodipine Besylate 5 Mg Tab) 10 mg PO DAILY MEDARDO Stop: 06/26/24 08:59 Last Admin: 05/28/24 08:12 Dose: 10 mg Aripiprazole (Aripiprazole 5 Mg Tab) 5 mg PO DAILY MEDARDO Stop: 06/26/24 08:59 Last Admin: 05/28/24 08:12 Dose: 5 mg Aspirin (Aspirin 81 Mg Ectab) 81 mg PO DAILY MEDARDO Stop: 06/26/24 08:59 Last Admin: 05/28/24 08:11 Dose: 81 mg Atorvastatin Calcium (Atorvastatin 20 Mg Tab) 20 mg PO DAILY MEDARDO Stop: 06/27/24 08:59 Last Admin: 05/28/24 08:11 Dose: 20 mg Benzonatate (Benzonatate 100 Mg Capsule) 100 mg PO TID PRN PRN Reason: cough Stop: 06/26/24 04:50 Carvedilol (Carvedilol 6.25 Mg Tab) 18.75 mg PO BID MEDARDO Stop: 06/27/24 20:59 Cetirizine HCl (Cetirizine Hcl 10 Mg Tablet) 10 mg PO DAILY MEDARDO Stop: 06/26/24 08:59 Last Admin: 05/28/24 08:12 Dose: 10 mg Clonazepam (Clonazepam 0.5 Mg Tab) 0.5 mg PO BID PRN PRN Reason: Anxiety Stop: 06/26/24 04:50 Last Admin: 05/28/24 08:04 Dose: 0.5 mg Fluticasone/Vilanterol (Fluticasone/Vilanterol 100/25mcg 14 Puffs/Inhaler) 1 puffs INH DAILY MEDADRO Stop: 06/26/24 16:55 Last Admin: 05/28/24 08:12 Dose: 1 puffs Furosemide (Furosemide 40 Mg/4 Ml Vial) 40 mg IV Q8H [facility]ARDO Stop: 06/27/24 09:59 Last Admin: 05/28/24 10:43 Dose: Not Given Guaifenesin (Guaifenesin 600 Mg Tabcr) 600 mg PO Q12 [facility]ARDO Stop: 06/26/24 20:59 Last Admin: 05/28/24 11:57 Dose: 600 mg Heparin Sodium (Porcine) (Heparin Sod 5,000 Unit/0.5 Ml Vial) 5,000 units SQ Q8 MEDARDO Stop: 06/26/24 13:59 Last Admin: 05/28/24 04:44 Dose: 5,000 units Hydralazine HCl (Hydralazine Hcl 25 Mg Tab) 75 mg PO TID [facility] Stop: 06/27/24 13:59 Promethazine HCl (Phenergan) 6.25 mg in 50.25 mls @ 201 mls/hr IV Q6H PRN PRN Reason: Nausea And Vomiting Stop: 06/26/24 03:26 Last Infusion: 05/27/24 10:56 Dose: Infused Ceftriaxone Sodium (Rocephin) 2,000 mg in 50 mls @ 100 mls/hr IV Q24H [facility]ARDO Stop: 06/07/24 08:59 Last Infusion: 05/28/24 10:43 Dose: Infused Methylprednisolone 40 mg/ (Syringe) 0.64 mls @ 1.5 mls/min IV BID MEDARDO Stop: 06/27/24 08:59 Last Admin: 05/28/24 11:57 Dose: 1.5 mls/min Vancomycin HCl 750 mg/ Sodium (Chloride) 265 mls @ 200 mls/hr IV Q24H [facility] Stop: 06/05/24 07:59 Miscellaneous Information (Vancomycin Consult Active) 1 each N/A UD PRN PRN Reason: Consult Stop: 06/27/24 07:16 Oxycodone HCl (Oxycodone Hcl Ir 5 Mg Tab (Immediate Release)) 5 mg PO Q4H PRN PRN Reason: Pain Stop: 06/10/24 03:26 Paroxetine HCl (Paroxetine Hcl 20 Mg Tab) 40 mg PO DAILY MEDARDO Stop: 06/26/24 08:59 Last Admin: 05/28/24 08:12 Dose: 40 mg Terazosin HCl (Terazosin Hcl 1 Mg Cap) 2 mg PO HS MEDARDO Stop: 06/26/24 20:59 Last Admin: 05/27/24 19:48 Dose: 2 mg (7) Pulmonary emphysema Emphysema type: centrilobular Qualified Code(s): J43.2 - Centrilobular emphysema
[2024-05-28] MEDS: hydrALAZINE HCL 25 MG TAB PO SCH (13:04)
[2024-05-28 14:33] LABS: Base Excess ABG -3.2 mEq/L (-9-1.8); HCO3 ABG 23 mmol/L (19-24); Oxygen Saturation ABG 98.8 % (90-95); PCO2 ABG 43 mmHg (35-46); PO2 ABG 124 mmHg (80-95); pH ABG 7.33 (7.35-7.45)
[2024-05-28 14:35] LABS: Allen Test Pos (Pos)
[2024-05-28] MEDS: carvediloL 6.25 MG TAB PO SCH (19:35)
--- NOTE | 2024-05-28 23:14 | Electrocardiogram Report ---
Test Reason : Blood Pressure : */* mmHG Vent. Rate : 69 BPM Atrial Rate : 69 BPM P-R Int : 154 ms QRS Dur : 88 ms QT Int : 422 ms P-R-T Axes : 43 -9 64 degrees QTcB Int : 452 ms Normal sinus rhythm Possible Anterior infarct , age undetermined Abnormal ECG When compared with ECG of 03-Dec-2023 18:16, Premature atrial complexes are no longer Present Confirmed by Destin Camacho ([id number]) on 05/28/2024 11:14:05 PM Referred By: REFERRED SELF Confirmed By: Destin Camacho
[2024-05-29 06:59] LABS: Hematocrit (blood only) 25.8 % (37.0-47.0); Hemoglobin 9.2 g/dl (12.0-16.0); Mean Corpuscular Hemoglobin 29.4 pg (25.0-34.0); Mean Corpuscular Hgb Conc 35.7 g/dL (32.0-36.0); Mean Corpuscular Volume 82.4 fL (80.0-100.0); Platelet Count 193 K/uL (130-400); RDW Coefficient of Variation 14.8 % (11.5-14.5); RDW Standard Deviation 44.1 fL (36.4-46.3); Red Blood Count 3.13 M/uL (4.20-5.40); White Blood Count 10.19 K/ul (4.8-10.8)
[2024-05-29 07:13] LABS: BUN Creatinine Ratio 29.7 (10-20); Creatinine Clr Calc Pharmacy 35.1 ml/min; Est GFR (African American) 48.7 ml/min; Magnesium 2.1 mg/dl (1.7-2.4); Potassium 4.2 mmol/L (3.5-5.1)
[2024-05-29 07:24] LABS: Basophils # (auto) 0.01 K/uL (0.00-0.20); Basophils % (auto) 0.1 %; Immature Granulocytes # (auto) 0.07 K/uL (0.01-0.20); Immature Granulocytes % (auto) 0.7 %; Lymphocytes % (auto) 4.9 %; Monocytes # (auto) 0.18 K/uL (0.11-0.59); Monocytes % (auto) 1.8 %; Neutrophils # (auto) 9.43 K/uL (1.40-6.50); Neutrophils % (auto) 92.5 %
[2024-05-29] MEDS ORDERED: VANCOMYCIN HCL 750 MG in SODIUM CHLORIDE 0.9% 250 ML IV SCH (08:00)
[2024-05-29] MEDS ORDERED: VANCOMYCIN HCL 1,000 MG in SODIUM CHLORIDE 0.9% 250 ML IV SCH (08:00)
--- NOTE | 2024-05-29 09:33 | Pharmacy Report ---
Pharmacy PK ABX Note - Date of Service May 29, 2024 - Assessment and Plan Assessment 05/29: Patient continues on vancomycin treatment. Patient's random vancomycin level came back lower than predicted per model. In addition, patient's CrCl improved per labs this AM from 32.5 to 35.1. Patient's dose for this AM increased to improve AUC and in anticipation of GARLAND resolution. 05/28: 59 year old F receiving vancomycin and ceftriaxone for treatment of preseptal orbital cellulitis. Pertinent microbiologic data includes: none. Day # 1 of antimicrobial therapy. Plan Vancomycin * Loading dose: 1000 mg IV x 1 * Maintenance dose: 1000 mg IV every 24 hours * Regimen is predicted to achieve target AUC/ESPERANZA of 400-600 mg/L.hr * Random level 05/29/2024: 8.5 Pharmacy will continue to follow and will adjust dose/frequency as necessary. Thank you. Pharmacy has transitioned to AUC monitoring for vancomycin. AUC/ESPERANZA is the preferred PK/PD target and is associated with decreased risk of nephrotoxicity compared to traditional trough targets.
--- NOTE | 2024-05-29 10:29 | Nephrology Progress Note ---
Date of Service May 29, 2024 Assessment & Plan Admission and Anticipated Discharge Date Admission Date: May 27, 2024 Subjective Assessment & Plan (1) GARLAND (acute kidney injury): on admission creatinine was 1.7 which is higher than her baseline of normal. however her renal function has been all over the place in the last few months with some episodes of acute kidney injury also. Most recent outpatient lab was from May 07, 2024 and showed a creatinine of 1.4. looking at the trend this can be regarded as her baseline. on admission it was 1.7 but it is already trending down to 1.6. Etiology of acute kidney injury is most likely hemodynamic in the setting of respiratory failure and decompensated heart failure. no further workup is needed for the etiology of acute kidney injury. Creat today is better at 1.3 and now getting close to baseline she does need daily renal panel as well as strict input output charting. given her symptoms as well as radiological finding it is reasonable to give her Lasix for treatment of CHF (2) Acute hyponatremia: have to assume this as hypervolemic hyponatremia in the setting of decompensated congestive heart failure. na 127 and rising slowly. the treatment of this is IV Lasix and diuresis. urine sodium 11 and urine osmolarity 391--however in Setting Of CHF neither tests are of any clinical Value. (3) Acute hypoxemic respiratory failure: (4) Acute on chronic diastolic heart failure with preserved ejection fraction: o2 need has got worse and also very SOB. she has acute respiratory failure and requiring 10 L oxygen. likely combination of cardiac as well as pulmonary issues causing this respiratory failure. radiologically she looks like she has congestive heart failure with pleural effusion pulmonary congestion and pericardial effusion but then lot of findings we expect in the echocardiogram with CHF are absent. for now will need to treat as both cardiac ( CHF) and Pulmonary with Abx, nebs and Steroid. cardiology note was reviewed in detail and agree with coordination with Nephrology regarding diuretics dosing. also consider pulmonary consult given her prior history of complicated pul monary issues and worsened o2 need On lasix 40 iv q8. Weight same as 2 days ago at 59 and urine output not much ( ? accurate). raise lasix to 60 iv q8h Plan discussed with Primary team and in agreement. S--was quite SOB yesterday. Wt not changed and urine output quite low. needing a lot of o2 and BP is high. Physical examination middle-aged white female who looks older a chronically ill. She does have facial puffiness and resting shortness of breath. awake and alert oriented x3 mucous membrane is moist neck is supple no JVD chest bilateral decreased breath sound but very diminished in the left with bilateral rhonchi and crackles. CVS S1-S2 regular no murmur heard abdomen is soft nontender extremities without edema Results & Data Vital Signs (Past 12 Hours) Vital Signs Temp Pulse Pulse Pulse Resp BP BP 05/29/24 09:00 05/29/24 07:46 90 22 05/29/24 07:35 05/29/24 07:24 37.2 C 85 22 178/74 H 05/29/24 07:15 89 05/29/24 04:34 36.8 C 54 L 20 164/65 H 05/29/24 03:24 80 18 05/29/24 00:20 36.7 C 81 22 174/75 H 05/28/24 23:52 71 05/28/24 23:29 79 18 Pulse Ox O2 Del Method O2 Del Method O2 Flow Rate O2 Flow Rate 05/29/24 09:00 High Flow Nasal Cannula 10 05/29/24 07:46 96 Nasal Cannula 10 05/29/24 07:35 High Flow Nasal Cannula 11 05/29/24 07:24 96 Nasal Cannula 11 05/29/24 07:15 05/29/24 04:34 96 Nasal Cannula 12 05/29/24 03:24 94 Nasal Cannula 12 05/29/24 00:20 97 Nasal Cannula 14 05/28/24 23:52 05/28/24 23:29 96 Nasal Cannula 13
--- NOTE | 2024-05-29 10:45 | Cardiology Progress Note ---
Date of Service May 29, 2024 Assessment & Plan (1) Acute hypoxemic respiratory failure: (2) Acute on chronic diastolic heart failure with preserved ejection fraction: (3) Acute exacerbation of chronic obstructive pulmonary disease: (4) Hypertensive urgency: (5) Pleural effusion: Plan 1. Agree with uptitration of furosemide as ordered by Nephrology 2. Strict monitoring of I's/O's and daily weights on the same standing scale, daily metabolic panels 3. Increase hydralazine to 100 mg times per day for additional blood pressure control Admission and Anticipated Discharge Date Admission Date: May 27, 2024 Supervising Physician Co-Signing Physician Notes Attending attestation: Case reviewed with the advanced practitioner. I have personally performed a history and physical examination on the patient. I have reviewed the advanced practitioner's documentation on the date of service referenced in note, and I agree with, and take responsibility for the plan of care. Continue diuretic therapy, Abluterol, Methylprednesolone, Breo Elipta, Rocephin. SQ heparin for DVT prophylaxis. Daniel Cuevas, Subjective Patient seen and examined. Chart, medications, telemetry reviewed Feeling a little less breathless. No chest pain. No palpitations. Furosemide increased to 60 mg IV every 8 hours by Nephrology. Review of Systems Review of Systems: Complete Review of Systems is as stated above, negative, or noncontributory. Physical Exam Physical Exam: General: A&Ox3. HENT: Minimal left periorbital edema (improved). Normocephalic. Atraumatic. Eyes: PER. Conjunctiva pink, sclera clear. Neck: JVD. Heart: Regular at 84 bpm. No murmur. No rub. Lungs: Diminished. Decreased. Scattered wheezing and rales. Abdomen: +BS. Soft. Nontender. No masses or organomegaly. Extremities: No clubbing, cyanosis, or edema. Limited neurological examination is without focal deficits. Pulses: radial=2/4, posterior tibial=1/4. Results & Data Vital Signs (Past 12 Hours) Vital Signs Temp Pulse Pulse Pulse Resp BP BP 05/29/24 09:00 05/29/24 07:46 90 22 05/29/24 07:35 05/29/24 07:24 37.2 C 85 22 178/74 H 05/29/24 07:15 89 05/29/24 04:34 36.8 C 54 L 20 164/65 H 05/29/24 03:24 80 18 05/29/24 00:20 36.7 C 81 22 174/75 H 05/28/24 23:52 71 05/28/24 23:29 79 18 Pulse Ox O2 Del Method O2 Del Method O2 Flow Rate O2 Flow Rate 05/29/24 09:00 High Flow Nasal Cannula 10 05/29/24 07:46 96 Nasal Cannula 10 05/29/24 07:35 High Flow Nasal Cannula 11 05/29/24 07:24 96 Nasal Cannula 11 05/29/24 07:15 05/29/24 04:34 96 Nasal Cannula 12 05/29/24 03:24 94 Nasal Cannula 12 05/29/24 00:20 97 Nasal Cannula 14 05/28/24 23:52 05/28/24 23:29 96 Nasal Cannula 13 Laboratory Results CBC 05/29/24 Range/Units 06:03 WBC 10.19 (4.8-10.8) K/ul RBC 3.13 L (4.20-5.40) M/uL Hgb 9.2 L (12.0-16.0) g/dl Hct 25.8 L (37.0-47.0) % Plt Count 193 (130-400) K/uL Neut # (Auto) 9.43 H (1.40-6.50) K/uL Lymph # (Auto) 0.50 L (1.20-3.40) K/uL [place] # (Auto) 0.18 (0.11-0.59) K/uL Eos # (Auto) 0.00 (0.00-0.50) K/uL Baso # (Auto) 0.01 (0.00-0.20) K/uL Comprehensive Metabolic Panel 05/29/24 Range/Units 06:03 Sodium 127 L (136-145) mmol/L Potassium 4.2 (3.5-5.1) mmol/L Chloride 92 L (98-107) mmol/L Carbon Dioxide 24 (21-32) mmol/L BUN 41 H (6-23) mg/dl Creatinine 1.38 H (0.6-1.2) mg/dl Glucose 130 H (70-99(Fasting)) mg/dl Calcium 8.0 L (8.6-10.3) mg/dl Intake and Output 05/28/24 05/29/24 05/29/24 22:59 06:59 14:59 Intake Total 470 / 1140.25 170 / 170 Output Total 200 / 200 Balance 470 / 415.25 -30 / -30 Intake: IV 50 / 50 cefTRIAXone SODIUM 2,000 mg In 50 / 50 50 ml @ 100 mls/hr IV Q24H PENDING SALE TO [facility] Rx#:[id number] Oral 470 / 770 120 / 120 Output: Urine 200 / 200 # Bowel Movements 0 / 0 Other: Weight 59.2 kg Weight Measurement Method Built in [facility] Diagnostic Findings Telemetry: Sinus with 70's with one four beat run of complex ectopy Resting echocardiography on May 27, 2024 with preserved LV systolic function, EF 55 to 60%, with mild concentric LVH, mild TR, normal to mildly elevated pulmonary artery systolic pressure (30 to 40 mmHg), grade 2 diastolic dysfunction
[2024-05-29] MEDS: VANCOMYCIN HCL 1,000 MG in SODIUM CHLORIDE 0.9% 250 ML IV SCH (11:40)
[2024-05-29] MEDS: FUROSEMIDE 40 MG/4 ML VIAL IV SCH (11:40)
[2024-05-29] MEDS: hydrALAZINE TAB 50 MG TAB PO SCH (12:54)
--- NOTE | 2024-05-29 15:52 | Pulmonary Consultation ---
Date of Consultation May 29, 2024 Assessment & Plan (1) Acute exacerbation of chronic obstructive pulmonary disease: Patient with ongoing COPD exacerbation. Will change powdered inhaler to nebulized Perforomist and Pulmicort twice daily. Continue IV Solu-Medrol. Continue broad-spectrum antibiotics. Patient notes roughly 50-vftu-hfxr smoking history. Will need outpatient PFTs and low-dose lung cancer screening with CT chest. Once she is ready, would recommend discharging her on Symbicort and Spiriva. (2) Acute respiratory failure with hypoxia: Wean O2 as able. Hypoxia due to bronchospasm. This should improve with further bronchodilation. (3) Pleural effusion: Right pleural effusion is very small and not amenable to thoracentesis at this time. Plan Pulmonary will continue to follow with you. Thank you for the consult. History of Present Illness Reason for Consultation: Hypoxemia Attending Physician: Ortega Calderon MD History of Present Illness 59-year-old female with a past medical history of diastolic heart failure, peripheral vascular disease, COPD, adenocarcinoma of the lung status post left upper lobe resection, GERD and hypertension who presented to the hospital with increasing shortness of breath. Patient was also found to be diastolic heart failure on admission. Patient on 40 mg 80 mg every 8 hours of Lasix. She is also on methylprednisone 40 mg twice daily and Breo elliptica. CT chest May 27 revealed moderate right and small left pleural effusion with compressive atelectasis. Interstitial changes noted in the lungs. Severe upper lobe predominant centrilobular emphysema. Chest x-ray today revealed right greater than left pleural effusion. Echo 05/27/2024 revealed a normal LVEF. Pulmonary systolic artery pressures were mildly elevated to 40 mmHg. Grade 2 diastolic dysfunction. Patient notes that she has had increased wheeze with cough. She has shortness of breath with minimal exertion. Allergies Allergy/AdvReac Type Severity Reaction Status Date / Time Bactrim Allergy Intermediate HIVES Verified 07/26/15 07:15 Sulfa (Sulfonamide Allergy Intermediate BACTRIM- Verified 05/27/24 02:11 Antibiotics) HIVES sulfamethoxazole Allergy Intermediate HIVES Verified 05/27/24 02:11 trimethoprim Allergy Intermediate HIVES Verified 05/27/24 02:11 metaxalone Allergy Unknown Unknown Verified 05/27/24 02:11 morphine Allergy Unknown . Verified 05/27/24 02:11 neomycin Allergy Unknown Unknown Verified 05/27/24 02:11 Quinolones Allergy Unknown Unknown Verified 05/27/24 02:11 tetracycline Allergy Unknown Hives Verified 05/27/24 02:11 amoxicillin [From Augmentin] Allergy Hives Verified 05/27/24 02:11 clavulanic acid Allergy Hives Verified 05/27/24 02:11 [From Augmentin] umeclidinium Allergy Hives Verified 05/27/24 02:11 [From Anoro Ellipta] vilanterol Allergy Unknown Verified 05/27/24 02:11 [From Anoro Ellipta] erythromycin base AdvReac Unknown Nausea Verified 05/27/24 02:23 moxifloxacin AdvReac Unknown hives Verified 05/27/24 02:11 Home Medications Medication Instructions Recorded Confirmed Type aripiprazole 5 mg tablet (Abilify) 5 mg PO DAILY 12/03/19 05/27/24 History aspirin 81 mg tablet 81 mg PO DAILY 02/04/20 05/27/24 History cetirizine 10 mg tablet 10 mg PO DAILY 02/04/20 05/27/24 History clonazepam 0.5 mg tablet 0.5 mg PO BID PRN Anxiety 02/04/20 05/27/24 History amlodipine 10 mg tablet 10 mg PO DAILY 08/01/21 05/27/24 History atorvastatin 20 mg tablet 20 mg PO DAILY 06/11/23 05/27/24 History carvedilol 25 mg tablet 25 mg PO BID 06/11/23 05/27/24 History paroxetine HCl 40 mg tablet 40 mg PO DAILY 06/11/23 05/27/24 History albuterol sulfate 2.5 mg/3 mL 2.5 mg (3 mL) inhalation Q4H PRN 06/15/23 05/27/24 Rx (0.083 %) solution for nebulization shortness of breath or wheezing #180 mL benzonatate 100 mg capsule 100 mg PO TID PRN cough #20 caps 06/15/23 05/27/24 Rx hydralazine 50 mg tablet 50 mg PO TID #90 tabs 06/15/23 05/27/24 Rx terazosin 1 mg capsule 2 mg (2 x 1 mg) PO HS #30 caps 06/15/23 05/27/24 Rx umeclidinium 62.5 mcg/actuation 1 inh inhalation DAILY #90 puffs 07/10/23 05/27/24 Rx blister powder for inhalation (Incruse Ellipta) acetaminophen 650 mg 650 mg PO Q8H PRN Pain 10/21/23 05/27/24 History tablet,extended release albuterol sulfate 90 mcg/actuation 2 puff inhalation Q4H PRN 01/04/24 05/27/24 Rx aerosol inhaler (Ventolin HFA) shortness of breath ,coughing or wheezing #18 grams furosemide 40 mg tablet 20 mg PO BID 05/27/24 05/27/24 History losartan 50 mg PO BID 05/27/24 05/27/24 History Patient History Medical History Anaphylaxis History of temporomandibular joint disorder GERD (gastroesophageal reflux disease) Bipolar disorder Breast fibroadenoma 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 Pulmonary nodule Arthritis Allergic rhinitis Lumbar stenosis (09/25/14) Surgical History History of D&C History of lumbar surgery H/O breast surgery H/O splenectomy Family History Father Hypertension Mother Lung cancer Other Breast cancer COPD (chronic obstructive pulmonary disease) Diabetes Social History Smoking Status: Former smoker Tobacco Type: Cigarettes Age Quit Using Tobacco: 58; Cigarettes Per Day: 3; Second Hand Exposure: No; Hx Alcohol Use: No Hx Substance Use: No Preferred Language: Honduran Communication Ability: Effective Film Maker Required: No Beliefs That Will Affect Care: None marital status: Current Living Situation: Spouse current occupational status: disabled Other Information That Helps Us Care for You: No Feels Safe at Home: Yes Safety Concerns: Feels Safe At This Time Assistive Devices: Nebulizer Review of Systems Review of Systems: All systems reviewed & are unremarkable except as noted in HPI & below Physical Exam Physical Exam: Constitutional: Patient appears to be of their stated age. Patient is in no apparent distress. Patient is well-developed. Eyes: Pupils are equal round and reactive to light. Conjunctivae are normal. Anicteric sclera. Ears nose, mouth and throat: Mallampati class 2. Normal posterior oropharynx. Uvula is midline. Neck: Trachea is midline. Visual inspection is normal. Respiratory: Diffuse expiratory wheeze. Mild tachypnea. Prolonged phase of exhalation. Cardiovascular: Regular rate and rhythm. No murmurs. No edema. Gastrointestinal: Normal bowel sounds, soft, nontender and nondistended. No hepatosplenomegaly noted. Musculoskeletal: No cyanosis. Patient is able to move all extremities. Strength is 5 out of 5 in the upper and lower extremities. Skin: No rashes, warm dry and intact. Neurologic: No obvious focal neurological deficits seen. Psychiatric: Alert and oriented x3 with a euthymic affect. Results & Data Results & Data Vital Signs (Past 12 Hours) Vital Signs Temp Pulse Pulse Pulse Resp BP BP 05/29/24 15:09 96 H 24 05/29/24 14:00 84 05/29/24 11:21 87 24 05/29/24 11:18 36.8 C 86 22 170/69 H 05/29/24 09:00 05/29/24 07:46 90 22 05/29/24 07:35 05/29/24 07:24 37.2 C 85 22 178/74 H 05/29/24 07:15 89 05/29/24 04:34 36.8 C 54 L 20 164/65 H Pulse Ox O2 Del Method O2 Del Method O2 Flow Rate O2 Flow Rate 05/29/24 15:09 94 Nasal Cannula 11 05/29/24 14:00 05/29/24 11:21 92 Nasal Cannula 10 05/29/24 11:18 91 Nasal Cannula 11 05/29/24 09:00 High Flow Nasal Cannula 10 05/29/24 07:46 96 Nasal Cannula 10 05/29/24 07:35 High Flow Nasal Cannula 11 05/29/24 07:24 96 Nasal Cannula 11 05/29/24 07:15 05/29/24 04:34 96 Nasal Cannula 12 PG Care Time/CCT Total # of Minutes Spent Total Time Spent with Patient: Total time spent is greater than 50% in coordination of care (as documented) at patient's floor/unit and/or counseling patient: Coding Level of Care Code 70218 IN/OBS CONSULT LVL 5,80M Diagnoses Acute exacerbation of chronic obstructive pulmonary disease J44.1 Acute respiratory failure with hypoxia J96.01 Pleural effusion J90
--- NOTE | 2024-05-29 16:00 | Hospitalist Progress Note ---
Date of Service May 29, 2024 Assessment & Plan (1) Acute on chronic diastolic heart failure with preserved ejection fraction: Plan: Presented with worsening shortness of breath and noted to have Hypoxic respiratory failure secondary to acute on chronic diastolic heart failure and is complicated by acute exacerbation of COPD Appreciate cardiology input and recommendation Has been getting intravenous Lasix 40 mg every 8 hourly as per recommendation by the video game repair technician Clinically little better and will be monitored on the medical telemetry unit Has not had enough diuresis and is still requiring high flow oxygen to maintain saturation Lasix has been increased to 60 mg every 8 hours intravenously Will monitor PRp and intake output (2) Acute hypoxemic respiratory failure: (3) COPD exacerbation: Plan: Has significant emphysema on the x-ray Clinically has COPD exacerbation Will continue with regular bronchodilator and intravenous Solu-Medrol Clinically not any better with ongoing requirement of high flow oxygen to maintain saturation Significant emphysematous change with history of CT of the lung we will get pulmonary evaluation for further management (4) GARLAND (acute kidney injury): Plan: Right to have GARLAND on CKD on admission with creatinine 1.7 Creatinine has been stable and usually better at 1.5 today Appreciate nephrology input and recommendation Will continue intravenous Lasix and monitor BMP daily Creatinine remains stable (5) Hyponatremia: Plan: Also noted to have acute hyponatremia on presentation with level of 125 Likely secondary to SIADH Urine sodium noted to be 11 and osmolality 391 Seems to be hypervolemic hyponatremia Restrict oral fluid and also treated with intravenous Lasix Sodium level has been 127 and stable (6) Hypertension, uncontrolled: Plan: Blood pressure remains elevated Medications are being adjusted Hydralazine dose has been increased to 100 mg 3 times daily (7) Pulmonary emphysema: Plan: If the respiratory status does not improve we will get pulmonary evaluation while in the hospital (8) History of adenocarcinoma of lung: (9) Heterozygous factor V Leiden mutation: Plan: Not on chronic anticoagulation Plan Progress note from prior hospitalist: Patient presents to the emergency room with acute hypoxic respiratory failure with additional findings acute kidney injury and hyponatremia and evident evidence of decompensated heart failure. Cardiology and nephrology consultations noted Monitor renal and sodium levels Hyponatremia suspicious for SIADH, additional laboratory studies pending, patient has multiple comorbidities as possible etiologies for SIADH including history of lung cancer, COPD. Titrate oxygen as able Procalcitonin low, discontinue antibiotics and observe Add Breo inhaler for COPD, patient does not seem to be in severe COPD exacerbation, will hold on systemic steroids at this time. Continue to monitor laboratory studies Continue to monitor blood pressure, adjust antihypertensives as needed Admission and Anticipated Discharge Date Admission Date: May 27, 2024 Subjective 05/28/2024 The patient was seen and examined in medical telemetry unit She was having more shortness of breath earlier this morning and was requiring 2 L oxygen by nasal cannula to maintain saturation She was noted to be hypoxic and showed widespread wheezing and crackles at the bases Denies any chest pain and/or palpitation Received nebulized bronchodilator, intravenous Lasix and intravenous Solu-Medrol and was feeling better 05/29/2024 The patient was seen and examined in medical telemetry unit She has been feeling much better but remains short of breath at rest and requiring high flow oxygen Condition has not changed since yesterday Denies any chest pain and/or palpitation Review of Systems Review of Systems: All systems reviewed and are unremarkable except as noted below Physical Exam Physical Exam: Lying in bed with acute distress due to shortness of breath Constitutional: + ill appearing and average body habitus Eyes: PERRL, conjunctivae normal, anicteric sclerae ENMT: external ear and nose normal, oropharynx normal Neck: trachea midline, no thyromegaly Respiratory: + respiratory distress Auscultation: + diminished lung sounds, + crackles and + wheezes Cardiovascular: Rate/Rhythm: regular rate and regular rhythm; not tachycardic Heart Sounds: normal S1 and normal S2; no murmur Extremities: + edema (Trace edema bilateral) Gastrointestinal (Abdomen): Inspection/Auscultation: normal bowel sounds; abdomen not distended Percussion/Palpation: abdomen soft; abdomen nontender Neurologic: normal touch/pain/proprioception and moves all extremities; no focal motor deficits Psychiatric: A+Ox3, euthymic affect Lymphatic: no cervical or axillary lymphadenopathy Results & Data Results & Data Vital Signs (Past 12 Hours) Vital Signs Temp Pulse Pulse Pulse Resp BP BP 05/29/24 15:50 36.7 C 88 18 182/71 H 05/29/24 15:09 96 H 24 05/29/24 14:00 84 05/29/24 11:21 87 24 05/29/24 11:18 36.8 C 86 22 170/69 H 05/29/24 09:00 05/29/24 07:46 90 22 05/29/24 07:35 05/29/24 07:24 37.2 C 85 22 178/74 H 05/29/24 07:15 89 05/29/24 04:34 36.8 C 54 L 20 164/65 H Pulse Ox O2 Del Method O2 Del Method O2 Flow Rate O2 Flow Rate 05/29/24 15:50 92 Nasal Cannula 12 05/29/24 15:09 94 Nasal Cannula 11 05/29/24 14:00 05/29/24 11:21 92 Nasal Cannula 10 05/29/24 11:18 91 Nasal Cannula 11 05/29/24 09:00 High Flow Nasal Cannula 10 05/29/24 07:46 96 Nasal Cannula 10 05/29/24 07:35 High Flow Nasal Cannula 11 05/29/24 07:24 96 Nasal Cannula 11 05/29/24 07:15 05/29/24 04:34 96 Nasal Cannula 12 Laboratory Results Short CBC 05/29/24 Range/Units 06:03 WBC 10.19 (4.8-10.8) K/ul Hgb 9.2 L (12.0-16.0) g/dl Hct 25.8 L (37.0-47.0) % Plt Count 193 (130-400) K/uL BMP 05/29/24 06:03 Sodium 127 L Potassium 4.2 Chloride 92 L Carbon Dioxide 24 BUN 41 H Creatinine 1.38 H Glucose 130 H Calcium 8.0 L Medications Administered Current Inpatient Medications Acetaminophen (Acetaminophen 325 Mg Tab) 650 mg PO QID PRN PRN Reason: pain/fever Stop: 06/26/24 03:26 Albuterol (Albut/Ipratrop 3mg/0.5mg Neb 3 Ml Vial) 3 ml NEB Q2H PRN; Protocol PRN Reason: SOB/WHEEZING Stop: 06/26/24 03:41 Last Admin: 05/28/24 07:58 Dose: 3 ml Albuterol (Albuterol 0.083% Nebu Soln 3 Ml Vial) 2.5 mg INH Q4R MEDARDO; Protocol Stop: 06/27/24 08:29 Last Admin: 05/29/24 15:08 Dose: 2.5 mg Amlodipine Besylate (Amlodipine Besylate 5 Mg Tab) 10 mg PO DAILY MEDARDO Stop: 06/26/24 08:59 Last Admin: 05/29/24 07:37 Dose: 10 mg Aripiprazole (Aripiprazole 5 Mg Tab) 5 mg PO DAILY MEDARDO Stop: 06/26/24 08:59 Last Admin: 05/29/24 07:40 Dose: 5 mg Aspirin (Aspirin 81 Mg Ectab) 81 mg PO DAILY MEDARDO Stop: 06/26/24 08:59 Last Admin: 05/29/24 07:39 Dose: 81 mg Atorvastatin Calcium (Atorvastatin 20 Mg Tab) 20 mg PO DAILY MEDARDO Stop: 06/27/24 08:59 Last Admin: 05/29/24 07:39 Dose: 20 mg Benzonatate (Benzonatate 100 Mg Capsule) 100 mg PO TID PRN PRN Reason: cough Stop: 06/26/24 04:50 Carvedilol (Carvedilol 6.25 Mg Tab) 18.75 mg PO BID MEDARDO Stop: 06/27/24 20:59 Last Admin: 05/29/24 07:38 Dose: 18.75 mg Cetirizine HCl (Cetirizine Hcl 10 Mg Tablet) 10 mg PO DAILY MEDARDO Stop: 06/26/24 08:59 Last Admin: 05/29/24 07:37 Dose: 10 mg Clonazepam (Clonazepam 0.5 Mg Tab) 0.5 mg PO BID PRN PRN Reason: Anxiety Stop: 06/26/24 04:50 Last Admin: 05/29/24 11:41 Dose: 0.5 mg Fluticasone/Vilanterol (Fluticasone/Vilanterol 100/25mcg 14 Puffs/Inhaler) 1 puffs INH DAILY MEDARDO Stop: 06/26/24 16:55 Last Admin: 05/29/24 07:42 Dose: 1 puffs Furosemide (Furosemide 40 Mg/4 Ml Vial) 60 mg IV Q8H MEDARDO Stop: 06/27/24 10:59 Last Admin: 05/29/24 11:40 Dose: 60 mg Guaifenesin (Guaifenesin 600 Mg Tabcr) 600 mg PO Q12 MEDARDO Stop: 06/26/24 20:59 Last Admin: 05/29/24 07:39 Dose: 600 mg Heparin Sodium (Porcine) (Heparin Sod 5,000 Unit/0.5 Ml Vial) 5,000 units SQ Q8 MEDARDO Stop: 06/26/24 13:59 Last Admin: 05/29/24 12:53 Dose: 5,000 units Hydralazine HCl (Hydralazine Tab 50 Mg Tab) 100 mg PO TID MEDARDO Stop: 06/28/24 13:59 Last Admin: 05/29/24 12:54 Dose: 100 mg Promethazine HCl (Phenergan) 6.25 mg in 50.25 mls @ 201 mls/hr IV Q6H PRN PRN Reason: Nausea And Vomiting Stop: 06/26/24 03:26 Last Infusion: 05/28/24 13:14 Dose: Infused Ceftriaxone Sodium (Rocephin) 2,000 mg in 50 mls @ 100 mls/hr IV Q24H [facility] Stop: 06/07/24 08:59 Last Infusion: 05/29/24 08:09 Dose: Infused Methylprednisolone 40 mg/ (Syringe) 0.64 mls @ 1.5 mls/min IV BID [facility] Stop: 06/27/24 08:59 Last Admin: 05/29/24 09:27 Dose: 1.5 mls/min Vancomycin HCl 1,000 mg/ (Sodium Chloride) 270 mls @ 200 mls/hr IV Q24H [facility] Stop: 06/05/24 07:59 Last Infusion: 05/29/24 13:01 Dose: Infused Miscellaneous Information (Vancomycin Consult Active) 1 each N/A UD PRN PRN Reason: Consult Stop: 06/27/24 07:16 Oxycodone HCl (Oxycodone Hcl Ir 5 Mg Tab (Immediate Release)) 5 mg PO Q4H PRN PRN Reason: Pain Stop: 06/10/24 03:26 Paroxetine HCl (Paroxetine Hcl 20 Mg Tab) 40 mg PO DAILY MEDARDO Stop: 06/26/24 08:59 Last Admin: 05/29/24 07:39 Dose: 40 mg Terazosin HCl (Terazosin Hcl 1 Mg Cap) 2 mg PO HS [facility] Stop: 06/26/24 20:59 Last Admin: 05/28/24 19:34 Dose: 2 mg (7) Pulmonary emphysema Emphysema type: centrilobular Qualified Code(s): J43.2 - Centrilobular emphysema
[2024-05-29] MEDS: ACETAMINOPHEN 325 MG TAB PO PRN (20:29)
[2024-05-29] MEDS: BUDESONIDE 0.5 MG/2 ML VIAL (PULMICORT) NEB SCH (20:31)
[2024-05-29] MEDS: FORMOTEROL 20 MCG/2 ML VIAL NEB SCH (20:31)
[2024-05-30 07:52] LABS: BUN Creatinine Ratio 35.3 (10-20); Calcium 7.4 mg/dl (8.6-10.3); Creatinine Clr Calc Pharmacy 32.3 ml/min; Est GFR (African American) 44.1 ml/min; Magnesium 2.3 mg/dl (1.7-2.4); Potassium 3.9 mmol/L (3.5-5.1)
--- NOTE | 2024-05-30 09:36 | Nephrology Progress Note ---
Date of Service May 30, 2024 Assessment & Plan Admission and Anticipated Discharge Date Admission Date: May 27, 2024 Subjective Assessment & Plan (1) GARLAND (acute kidney injury): on admission creatinine was 1.7 which is higher than her baseline of normal. however her renal function has been all over the place in the last few months with some episodes of acute kidney injury also. Most recent outpatient lab was from May 07, 2024 and showed a creatinine of 1.4. looking at the trend this can be regarded as her baseline. on admission it was 1.7 but it is already trending down to 1.6. Etiology of acute kidney injury is most likely hemodynamic in the setting of respiratory failure and decompensated heart failure. no further workup is needed for the etiology of acute kidney injury. Creat today is slightly worse than yesterday at 1.5 but overall no major change in creat for last few days. She does need daily renal panel as well as strict input output charting. given her symptoms as well as radiological finding it is reasonable to give her Lasix for treatment of CHF (2) Acute hyponatremia: have to assume this as hypervolemic hyponatremia in the setting of decomp ensated congestive heart failure. Plus given COPD she is prone na 127 and rising slowly and today it is 130. Continue IV Lasix and diuresis. urine sodium 11 and urine osmolarity 391--however in Setting Of CHF neither tests are of any clinical Value. (3) Acute hypoxemic respiratory failure: (4) Acute on chronic diastolic heart failure with preserved ejection fraction: o2 need has got worse and also very SOB. she has acute respiratory failure and requiring 8 L oxygen. likely combination of cardiac as well as pulmonary issues causing this respiratory failure. My feeling is this is more pulmonary driven than cardiac. radiologically she looks like she has congestive heart failure with pleural effusion pulmonary congestion and pericardial effusion but then lot of findings we expect in the echocardiogram with CHF are absent. for now will need to treat as both cardiac ( CHF) and Pulmonary with Abx, nebs and Steroid. cardiology note as well as Pulmonary note was reviewed in detail Lower lasix to 40 iv q8h Plan discussed with Primary team and in agreement. S--was quite SOB yesterday. Wt not changed and urine output quite low. needing a lot of o2 and BP is high. Physical examination middle-aged white female who looks older a chronically ill. She does have facial puffiness and resting shortness of breath. awake and alert oriented x3 mucous membrane is moist neck is supple no JVD chest bilateral decreased breath sound but very diminished in the left with bilateral rhonchi and crackles. CVS S1-S2 regular no murmur heard abdomen is soft nontender extremities without edema Results & Data Vital Signs (Past 12 Hours) Vital Signs Temp Pulse Pulse Resp BP BP Pulse Ox 05/30/24 08:00 05/30/24 07:56 36.6 C 85 16 172/72 H 89 L 05/30/24 07:15 86 20 100 05/30/24 06:02 77 12 93 05/30/24 04:09 36.7 C 83 18 158/54 H 95 05/30/24 03:39 85 95 05/30/24 01:42 89 14 90 05/29/24 23:27 36.8 C 77 18 160/70 H 93 05/29/24 22:42 80 20 96 05/29/24 21:40 76 Pulse Ox O2 Del Method O2 Del Method O2 Flow Rate O2 Flow Rate 05/30/24 08:00 94 High Flow Nasal Cannula 8 05/30/24 07:56 Nebulizer 05/30/24 07:15 Nasal Cannula 7 05/30/24 06:02 Nasal Cannula 7 05/30/24 04:09 High Flow Nasal Cannula 8 05/30/24 03:39 Nasal Cannula 8 05/30/24 01:42 Nasal Cannula 10 05/29/24 23:27 High Flow Nasal Cannula 12 05/29/24 22:42 Nasal Cannula 12 05/29/24 21:40
[2024-05-30] MEDS: FUROSEMIDE 40 MG/4 ML VIAL IV SCH (10:04)
--- NOTE | 2024-05-30 11:12 | Cardiology Progress Note ---
Date of Service May 30, 2024 Assessment & Plan (1) Acute hypoxemic respiratory failure: (2) Acute on chronic diastolic heart failure with preserved ejection fraction: (3) Acute exacerbation of chronic obstructive pulmonary disease: (4) Hypertensive urgency: (5) Pleural effusion: Plan Diuretic(s) as per Nephrology. Increase carvedilol dosing to 25 mg twice a day for additional heart rate control, increase terazosin for BP Admission and Anticipated Discharge Date Admission Date: May 27, 2024 Supervising Physician Co-Signing Physician Notes Attending attestation: Case reviewed with the advanced practitioner. I have personally performed a history and physical examination on the patient. I have reviewed the advanced practitioner's documentation on the date of service referenced in note, and I agree with, and take responsibility for the plan of care. Respiratory status, wheezing, overall appearance improving on current dose of furosemide and treatment of underlying lung disease. SQ heparin for DVT prophylaxis. Daniel Cuevas, Subjective Patient seen and examined. Chart, medications, telemetry reviewed Breathing better today. Palpitations develop with activity, after significant dyspnea. No chest pain. Telemetry: Sinus in the 80's. One 8 beat run of VT at 00:57:46 Review of Systems Review of Systems: Complete Review of Systems is as stated above, negative, or noncontributory. Physical Exam Physical Exam: General: A&Ox3. Eyes: PER. Neck: No JVD. Heart: Regular at 84 bpm. No murmur. No rub. Lungs: Diminished. Decreased. Improved aeration. No wheezing appreciated. Abdomen: +BS. Soft. Nontender. No masses or organomegaly. Extremities: No clubbing, cyanosis, or edema. Limited neurological examination is without focal deficits. Pulses: radial=2/4, posterior tibial=0/4. Results & Data Vital Signs (Past 12 Hours) Vital Signs Temp Pulse Pulse Resp BP BP Pulse Ox 05/30/24 10:54 78 05/30/24 10:26 86 16 93 05/30/24 08:00 05/30/24 07:56 36.6 C 85 16 172/72 H 89 L 05/30/24 07:15 86 20 100 05/30/24 06:02 77 12 93 05/30/24 04:09 36.7 C 83 18 158/54 H 95 05/30/24 03:39 85 95 05/30/24 01:42 89 14 90 05/29/24 23:27 36.8 C 77 18 160/70 H 93 Pulse Ox O2 Del Method O2 Del Method O2 Flow Rate O2 Flow Rate 05/30/24 10:54 05/30/24 10:26 Nasal Cannula 5 05/30/24 08:00 94 High Flow Nasal Cannula 8 05/30/24 07:56 Nebulizer 05/30/24 07:15 Nasal Cannula 7 05/30/24 06:02 Nasal Cannula 7 05/30/24 04:09 High Flow Nasal Cannula 8 05/30/24 03:39 Nasal Cannula 8 05/30/24 01:42 Nasal Cannula 10 05/29/24 23:27 High Flow Nasal Cannula 12 Laboratory Results Comprehensive Metabolic Panel 05/30/24 Range/Units 06:48 Sodium 130 L (136-145) mmol/L Potassium 3.9 (3.5-5.1) mmol/L Chloride 94 L (98-107) mmol/L Carbon Dioxide 26 (21-32) mmol/L BUN 53 H (6-23) mg/dl Creatinine 1.50 H (0.6-1.2) mg/dl Glucose 135 H (70-99(Fasting)) mg/dl Calcium 7.4 L (8.6-10.3) mg/dl Intake and Output 05/29/24 05/30/24 05/30/24 22:59 06:59 14:59 Intake Total 370.25 / 1470.25 50 / 50 Output Total 900 / 2700 1250 / 2700 Balance -900 / -1229.75 -879.75 / -1229.75 50 / 50 Intake: IV 50.25 / 370.25 50 / 50 Promethazine 6.25 mg In 50.25 50.25 / 50.25 ml @ 201 mls/hr IV Q6H PRN Rx#: [id number] cefTRIAXone SODIUM 2,000 mg In 50 / 50 50 ml @ 100 mls/hr IV Q24H MEDARDO Rx#:[id number] Oral 320 / 1100 Output: Urine 900 / 2700 1250 / 2700 Other: Weight 57 kg Weight Measurement Method Built in [facility]
--- NOTE | 2024-05-30 14:07 | Hospitalist Progress Note ---
Date of Service May 30, 2024 Assessment & Plan (1) Acute on chronic diastolic heart failure with preserved ejection fraction: Plan: Presented with worsening shortness of breath and noted to have Hypoxic respiratory failure secondary to acute on chronic diastolic heart failure and is complicated by acute exacerbation of COPD Appreciate cardiology input and recommendation Has been getting intravenous Lasix 40 mg every 8 hourly as per recommendation by the waist cutter Clinically little better and will be monitored on the medical telemetry unit Has not had enough diuresis and is still requiring high flow oxygen to maintain saturation Lasix has been increased to 60 mg every 8 hours intravenously Clinically a little better with output- we will continue current management (2) Acute hypoxemic respiratory failure: (3) COPD exacerbation: Plan: Has significant emphysema on the x-ray Clinically has COPD exacerbation Will continue with regular bronchodilator and intravenous Solu-Medrol Clinically not any better with ongoing requirement of high flow oxygen to maintain saturation Significant emphysematous change with history of CT of the lung we will get pulmonary evaluation for further management Appreciate pulmonary input and recommendation Will discontinue vancomycin and add azithromycin for atypical coverage (4) GARLAND (acute kidney injury): Plan: Right to have GARLAND on CKD on admission with creatinine 1.7 Creatinine has been stable and usually better at 1.5 today Appreciate nephrology input and recommendation Will continue intravenous Lasix and monitor BMP daily Creatinine remains stable (5) Hyponatremia: Plan: Also noted to have acute hyponatremia on presentation with level of 125 Likely secondary to SIADH Urine sodium noted to be 11 and osmolality 391 Seems to be hypervolemic hyponatremia Restrict oral fluid and also treated with intravenous Lasix Sodium level has been 127 and stable Sodium level has been improving which is at 130 as of 05/30/2024 (6) Hypertension, uncontrolled: Plan: Blood pressure remains elevated Medications are being adjusted Hydralazine dose has been increased to 100 mg 3 times daily (7) Pulmonary emphysema: Plan: If the respiratory status does not improve we will get pulmonary evaluation while in the hospital (8) History of adenocarcinoma of lung: (9) Heterozygous factor V Leiden mutation: Plan: Not on chronic anticoagulation Plan Progress note from prior hospitalist: Patient presents to the emergency room with acute hypoxic respiratory failure with additional findings acute kidney injury and hyponatremia and evident evidence of decompensated heart failure. Cardiology and nephrology consultations noted Monitor renal and sodium levels Hyponatremia suspicious for SIADH, additional laboratory studies pending, patient has multiple comorbidities as possible etiologies for SIADH including history of lung cancer, COPD. Titrate oxygen as able Procalcitonin low, discontinue antibiotics and observe Add Breo inhaler for COPD, patient does not seem to be in severe COPD exacerbation, will hold on systemic steroids at this time. Continue to monitor laboratory studies Continue to monitor blood pressure, adjust antihypertensives as needed Admission and Anticipated Discharge Date Admission Date: May 27, 2024 Subjective 05/28/2024 The patient was seen and examined in medical telemetry unit She was having more shortness of breath earlier this morning and was requiring 2 L oxygen by nasal cannula to maintain saturation She was noted to be hypoxic and showed widespread wheezing and crackles at the bases Denies any chest pain and/or palpitation Received nebulized bronchodilator, intravenous Lasix and intravenous Solu-Medrol and was feeling better 05/29/2024 The patient was seen and examined in medical telemetry unit She has been feeling much better but remains short of breath at rest and requiring high flow oxygen Condition has not changed since yesterday Denies any chest pain and/or palpitation 05/30/2024 The patient was seen and examined in medical telemetry unit She has been a little better but is still requiring high flow oxygen Remains generally weak and lethargic Denies any chest pain and/or palpitation Review of Systems Review of Systems: All systems reviewed and are unremarkable except as noted below Physical Exam Physical Exam: Lying in bed with acute distress due to shortness of breath Constitutional: + ill appearing and average body habitus Eyes: PERRL, conjunctivae normal, anicteric sclerae ENMT: external ear and nose normal, oropharynx normal Neck: trachea midline, no thyromegaly Respiratory: + respiratory distress Auscultation: + diminished lung sounds, + crackles and + wheezes Cardiovascular: Rate/Rhythm: regular rate and regular rhythm; not tachycardic Heart Sounds: normal S1 and normal S2; no murmur Extremities: + edema (Trace edema bilateral) Gastrointestinal (Abdomen): Inspection/Auscultation: normal bowel sounds; abdomen not distended Percussion/Palpation: abdomen soft; abdomen nontender Neurologic: normal touch/pain/proprioception and moves all extremities; no focal motor deficits Psychiatric: A+Ox3, euthymic affect Lymphatic: no cervical or axillary lymphadenopathy Results & Data Results & Data Vital Signs (Past 12 Hours) Vital Signs Temp Pulse Pulse Resp BP BP Pulse Ox 05/30/24 12:14 36.8 C 78 16 164/71 H 91 05/30/24 10:54 78 05/30/24 10:26 86 16 93 05/30/24 08:00 05/30/24 07:56 36.6 C 85 16 172/72 H 89 L 05/30/24 07:15 86 20 100 05/30/24 06:02 77 12 93 05/30/24 04:09 36.7 C 83 18 158/54 H 95 05/30/24 03:39 85 95 Pulse Ox O2 Del Method O2 Del Method O2 Flow Rate O2 Flow Rate 05/30/24 12:14 Nasal Cannula 4.5 05/30/24 10:54 05/30/24 10:26 Nasal Cannula 5 05/30/24 08:00 94 High Flow Nasal Cannula 8 05/30/24 07:56 Nebulizer 05/30/24 07:15 Nasal Cannula 7 05/30/24 06:02 Nasal Cannula 7 05/30/24 04:09 High Flow Nasal Cannula 8 05/30/24 03:39 Nasal Cannula 8 Laboratory Results BMP 05/30/24 06:48 Sodium 130 L Potassium 3.9 Chloride 94 L Carbon Dioxide 26 BUN 53 H Creatinine 1.50 H Glucose 135 H Calcium 7.4 L Medications Administered Current Inpatient Medications Acetaminophen (Acetaminophen 325 Mg Tab) 650 mg PO QID PRN PRN Reason: pain/fever Stop: 06/26/24 03:26 Last Admin: 05/29/24 20:29 Dose: 650 mg Albuterol (Albut/Ipratrop 3mg/0.5mg Neb 3 Ml Vial) 3 ml NEB Q2H PRN; Protocol PRN Reason: SOB/WHEEZING Stop: 06/26/24 03:41 Last Admin: 05/30/24 10:15 Dose: 3 ml Albuterol (Albuterol 0.083% Nebu Soln 3 Ml Vial) 2.5 mg INH Q4R MEDARDO; Protocol Stop: 06/27/24 08:29 Last Admin: 05/30/24 10:28 Dose: Not Given Amlodipine Besylate (Amlodipine Besylate 5 Mg Tab) 10 mg PO DAILY MEDARDO Stop: 06/26/24 08:59 Last Admin: 05/30/24 10:02 Dose: 10 mg Aripiprazole (Aripiprazole 5 Mg Tab) 5 mg PO DAILY MEDARDO Stop: 06/26/24 08:59 Last Admin: 05/30/24 13:53 Dose: 5 mg Aspirin (Aspirin 81 Mg Ectab) 81 mg PO DAILY MEDARDO Stop: 06/26/24 08:59 Last Admin: 05/30/24 10:02 Dose: 81 mg Atorvastatin Calcium (Atorvastatin 20 Mg Tab) 20 mg PO DAILY MEDARDO Stop: 06/27/24 08:59 Last Admin: 05/30/24 10:01 Dose: 20 mg Benzonatate (Benzonatate 100 Mg Capsule) 100 mg PO TID PRN PRN Reason: cough Stop: 06/26/24 04:50 Budesonide (Budesonide 0.5 Mg/2 Ml Vial (Pulmicort)) 0.5 mg NEB BIDR [facility] Stop: 06/28/24 18:59 Last Admin: 05/30/24 07:14 Dose: 0.5 mg Carvedilol (Carvedilol 25 Mg Tab) 25 mg PO BID MEDARDO Stop: 06/29/24 20:59 Cetirizine HCl (Cetirizine Hcl 10 Mg Tablet) 10 mg PO DAILY MEDARDO Stop: 06/26/24 08:59 Last Admin: 05/30/24 10:02 Dose: 10 mg Clonazepam (Clonazepam 0.5 Mg Tab) 0.5 mg PO BID PRN PRN Reason: Anxiety Stop: 06/26/24 04:50 Last Admin: 05/30/24 01:53 Dose: 0.5 mg Formoterol Fumarate (Formoterol 20 Mcg/2 Ml Vial) 20 mcg NEB BIDR MEDARDO Stop: 06/28/24 18:59 Last Admin: 05/30/24 07:15 Dose: 20 mcg Furosemide (Furosemide 40 Mg/4 Ml Vial) 40 mg IV Q8H MEDARDO Stop: 06/27/24 09:59 Last Admin: 05/30/24 10:04 Dose: 40 mg Guaifenesin (Guaifenesin 600 Mg Tabcr) 600 mg PO Q12 MEDARDO Stop: 06/26/24 20:59 Last Admin: 05/30/24 10:02 Dose: 600 mg Heparin Sodium (Porcine) (Heparin Sod 5,000 Unit/0.5 Ml Vial) 5,000 units SQ Q8 MEDARDO Stop: 06/26/24 13:59 Last Admin: 05/30/24 13:53 Dose: 5,000 units Hydralazine HCl (Hydralazine Tab 50 Mg Tab) 100 mg PO TID MEDARDO Stop: 06/28/24 13:59 Last Admin: 05/30/24 13:53 Dose: 100 mg Promethazine HCl (Phenergan) 6.25 mg in 50.25 mls @ 201 mls/hr IV Q6H PRN PRN Reason: Nausea And Vomiting Stop: 06/26/24 03:26 Last Infusion: 05/30/24 06:00 Dose: Infused Ceftriaxone Sodium (Rocephin) 2,000 mg in 50 mls @ 100 mls/hr IV Q24H MEDARDO Stop: 06/07/24 08:59 Last Infusion: 05/30/24 10:56 Dose: Infused Methylprednisolone 40 mg/ (Syringe) 0.64 mls @ 1.5 mls/min IV BID MEDARDO Stop: 06/27/24 08:59 Last Admin: 05/30/24 10:03 Dose: 1.5 mls/min Oxycodone HCl (Oxycodone Hcl Ir 5 Mg Tab (Immediate Release)) 5 mg PO Q4H PRN PRN Reason: Pain Stop: 06/10/24 03:26 Paroxetine HCl (Paroxetine Hcl 20 Mg Tab) 40 mg PO DAILY MEDARDO Stop: 06/26/24 08:59 Last Admin: 05/30/24 10:02 Dose: 40 mg Terazosin HCl (Terazosin Hcl 5 Mg Cap) 5 mg PO HS MEDARDO Stop: 06/29/24 20:59 (7) Pulmonary emphysema Emphysema type: centrilobular Qualified Code(s): J43.2 - Centrilobular emphysema
--- NOTE | 2024-05-30 15:09 | Pulmonology Progress Note ---
Date of Service May 30, 2024 Assessment & Plan (1) Acute exacerbation of chronic obstructive pulmonary disease: Plan: Patient with ongoing COPD exacerbation. Symptoms improving oxygen requirements proving today. Continue Pulmicort and Perforomist. Will transition to oral prednisone. Would recommend a 2-week course. Can likely be discharged home in the next 1 to 2 days. Patient notes roughly [id number] smoking history. Will need outpatient PFTs and low-dose lung cancer screening with CT chest. Once she is ready, would recommend discharging her on Symbicort and Spiriva. (2) Acute respiratory failure with hypoxia: Plan: Wean O2 as able. O2 requirements improving. Hypoxia due to bronchospasm. (3) Pleural effusion: Plan: Right pleural effusion is very small and not amenable to thoracentesis at this time. Plan Thank you for the consult. Pulmonary sign off at this time. Please call with questions. Admission and Anticipated Discharge Date Admission Date: May 27, 2024 Subjective Shortness of breath has improved and oxygen requirements improved as well. Down to 4 L of oxygen at this time. Denies any shortness of breath at rest. Review of Systems Review of Systems: All systems reviewed & are unremarkable except as noted in HPI & below Physical Exam Physical Exam: Constitutional: Patient appears to be of their stated age. Patient is in no apparent distress. Patient is well-developed. Eyes: Pupils are equal round and reactive to light. Conjunctivae are normal. Anicteric sclera. Ears nose, mouth and throat: Mallampati class 2. Normal posterior oropharynx. Uvula is midline. Neck: Trachea is midline. Visual inspection is normal. Respiratory: Diffuse expiratory wheeze. Prolonged phase of exhalation. Cardiovascular: Regular rate and rhythm. No murmurs. No edema. Gastrointestinal: Normal bowel sounds, soft, nontender and nondistended. No hepatosplenomegaly noted. Musculoskeletal: No cyanosis. Patient is able to move all extremities. Strength is 5 out of 5 in the upper and lower extremities. Skin: No rashes, warm dry and intact. Neurologic: No obvious focal neurological deficits seen. Psychiatric: Alert and oriented x3 with a euthymic affect. Results & Data Results & Data Vital Signs (Past 12 Hours) Vital Signs Temp Pulse Pulse Resp BP BP Pulse Ox 05/30/24 14:54 80 17 96 05/30/24 12:14 36.8 C 78 16 164/71 H 91 05/30/24 10:54 78 05/30/24 10:26 86 16 93 05/30/24 08:00 05/30/24 07:56 36.6 C 85 16 172/72 H 89 L 05/30/24 07:15 86 20 100 05/30/24 06:02 77 12 93 05/30/24 04:09 36.7 C 83 18 158/54 H 95 05/30/24 03:39 85 95 Pulse Ox O2 Del Method O2 Del Method O2 Flow Rate O2 Flow Rate 05/30/24 14:54 Nasal Cannula 4 05/30/24 12:14 Nasal Cannula 4.5 05/30/24 10:54 05/30/24 10:26 Nasal Cannula 5 05/30/24 08:00 94 High Flow Nasal Cannula 8 05/30/24 07:56 Nebulizer 05/30/24 07:15 Nasal Cannula 7 05/30/24 06:02 Nasal Cannula 7 05/30/24 04:09 High Flow Nasal Cannula 8 05/30/24 03:39 Nasal Cannula 8 PG Care Time/CCT Total # of Minutes Spent Total Time Spent with Patient: Total time spent is greater than 50% in coordination of care (as documented) at patient's floor/unit and/or counseling patient: Coding Level of Care Code 31231 SUB INP/OBS CARE 2/35MIN Diagnoses Acute exacerbation of chronic obstructive pulmonary disease J44.1 Acute respiratory failure with hypoxia J96.01 Pleural effusion J90
[2024-05-30] MEDS: AZITHROMYCIN 500 MG in DEXTROSE 5% 250 ML IV STA (16:17)
[2024-05-30] MEDS: carvediloL 25 MG TAB PO SCH (19:54)
[2024-05-30] MEDS: TERAZOSIN HCL 5 MG CAP PO SCH (19:56)
[2024-05-31 07:23] LABS: BUN Creatinine Ratio 39.9 (10-20); Calcium 7.7 mg/dl (8.6-10.3); Creatinine Clr Calc Pharmacy 33.9 ml/min; Est GFR (African American) 46.7 ml/min; Est GFR (Non-African American) 40.3 ml/min; Magnesium 2.3 mg/dl (1.7-2.4); Potassium 3.8 mmol/L (3.5-5.1)
[2024-05-31] MEDS: predniSONE 20 MG TAB PO SCH (08:25)
--- NOTE | 2024-05-31 09:29 | Cardiology Progress Note ---
Date of Service May 31, 2024 Assessment & Plan (1) Acute hypoxemic respiratory failure: (2) Acute on chronic diastolic heart failure with preserved ejection fraction: (3) Acute exacerbation of chronic obstructive pulmonary disease: (4) Hypertensive urgency: (5) Pleural effusion: Plan Sodium improved. Furosemide reduced from 60 mg IV every 8 hours to 40 mg IV every 8 hours on 05/30/2024. Would attribute significant improvement in wheezing to her change in bronchodilators and addition of prednisone. Would increase activity. She really needs to get out of bed and in the chair and maybe go for a walk today. Admission and Anticipated Discharge Date Admission Date: May 27, 2024 Subjective Patient seen in cardiology follow-up. Wheezing much improved. Telemetry reveals sinus rhythm. Physical Exam Physical Exam: General: A&Ox3. Eyes: PER. Neck: No JVD. Heart: Regular at 84 bpm. No murmur. No rub. Lungs: Diminished. Decreased. Improved aeration. No wheezing appreciated. Abdomen: +BS. Soft. Nontender. No masses or organomegaly. Extremities: No clubbing, cyanosis, or edema. Limited neurological examination is without focal deficits. Results & Data Vital Signs (Past 12 Hours) Vital Signs Temp Pulse Pulse Resp BP Pulse Ox O2 Del Method 05/31/24 07:21 36.7 C 81 18 165/76 H 95 Nasal Cannula 05/31/24 07:18 83 18 97 Nasal Cannula 05/31/24 07:00 76 05/31/24 04:06 36.6 C 75 20 162/60 H 95 Nasal Cannula 05/31/24 03:50 79 16 98 Nasal Cannula 05/31/24 00:02 36.6 C 92 H 20 173/56 H 92 Nasal Cannula 05/30/24 22:58 85 20 91 Nasal Cannula 05/30/24 21:35 74 O2 Flow Rate 05/31/24 07:21 3 05/31/24 07:18 3 05/31/24 07:00 05/31/24 04:06 4 05/31/24 03:50 3 05/31/24 00:02 4 05/30/24 22:58 4 05/30/24 21:35
[2024-05-31] MEDS: AZITHROMYCIN 250 MG in DEXTROSE 5% 250 ML IV SCH (13:15)
--- NOTE | 2024-05-31 13:43 | Nephrology Progress Note ---
Date of Service May 31, 2024 Assessment & Plan (1) GARLAND (acute kidney injury): Plan: on admission creatinine was 1.7 which is higher than her baseline of normal. however her renal function has been all over the place in the last few months with some episodes of acute kidney injury also. Most recent outpatient lab was from May 07, 2024 and showed a creatinine of 1.4. looking at the trend this can be regarded as her baseline. on admission it was 1.7 but it is already trending down to 1.4. Etiology of acute kidney injury is most likely hemodynamic in the setting of respiratory failure and decompensated heart failure. no further workup is needed for the etiology of acute kidney injury she does need daily renal panel as well as strict input output charting. - for now will do Lasix 40 mg IV q.8 hours. (2) Acute hyponatremia: Plan: him to assume this as hypervolemic hyponatremia in the setting of decompensated congestive heart failure. the treatment of this is IV Lasix and diuresis.Na wnl now urine sodium and urine osmolarity has been sent and is pending and we will review. (3) Acute hypoxemic respiratory failure: (4) Acute on chronic diastolic heart failure with preserved ejection fraction: Plan: Admission and Anticipated Discharge Date Admission Date: May 27, 2024 Subjective Comfortable ,no distress. Wheezing much improved. Review of Systems 2 Review of Systems: All systems reviewed & are unremarkable except as noted in HPI & below Physical Exam 2 Physical Exam: General: A&Ox3. Eyes: KATHIE Neck: No JVD. Heart: Regular at 84 bpm. No murmur. No rub. Lungs: Diminished. Decreased. Improved aeration. No wheezing appreciated. Abdomen: +BS. Soft. Nontender. No masses or organomegaly. Extremities: No clubbing, cyanosis, or edema. Limited neurological examination is without focal deficits. Results & Data Vital Signs (Past 12 Hours) Vital Signs Temp Pulse Pulse Resp BP Pulse Ox O2 Del Method 05/31/24 11:17 88 22 96 Nasal Cannula 05/31/24 10:58 37.1 C 74 18 155/56 H 93 Nasal Cannula 05/31/24 08:20 Nasal Cannula 05/31/24 08:20 05/31/24 07:21 36.7 C 81 18 165/76 H 95 Nasal Cannula 05/31/24 07:18 83 18 97 Nasal Cannula 05/31/24 07:00 76 05/31/24 04:06 36.6 C 75 20 162/60 H 95 Nasal Cannula 05/31/24 03:50 79 16 98 Nasal Cannula O2 Del Method O2 Flow Rate 05/31/24 11:17 3 05/31/24 10:58 3 05/31/24 08:20 4 05/31/24 08:20 Room Air 05/31/24 07:21 3 05/31/24 07:18 3 05/31/24 07:00 05/31/24 04:06 4 05/31/24 03:50 3 Laboratory Results 05/29/24 06:03 05/31/24 06:13
--- NOTE | 2024-05-31 16:06 | Hospitalist Progress Note ---
Date of Service May 31, 2024 Assessment & Plan (1) Acute on chronic diastolic heart failure with preserved ejection fraction: Plan: Presented with worsening shortness of breath and noted to have Hypoxic respiratory failure secondary to acute on chronic diastolic heart failure and is complicated by acute exacerbation of COPD Appreciate cardiology input and recommendation Has been getting intravenous Lasix 40 mg every 8 hourly as per recommendation by the ore dryer Clinically little better and will be monitored on the medical telemetry unit Has not had enough diuresis and is still requiring high flow oxygen to maintain saturation Lasix has been increased to 60 mg every 8 hours intravenously Clinically a little better with output- we will continue current management Lasix has been decreased to 60 mg intravenously Q8 hourly Will monitor output and adjust doses accordingly (2) Acute hypoxemic respiratory failure: (3) COPD exacerbation: Plan: Has significant emphysema on the x-ray Clinically has COPD exacerbation Will continue with regular bronchodilator and intravenous Solu-Medrol Clinically not any better with ongoing requirement of high flow oxygen to maintain saturation Significant emphysematous change with history of CT of the lung we will get pulmonary evaluation for further management Appreciate pulmonary input and recommendation Will discontinue vancomycin and add azithromycin for atypical coverage Will continue current antibiotic and changed to oral on discharge to finish the course of 10 days in total (4) GARLAND (acute kidney injury): Plan: Right to have GARLAND on CKD on admission with creatinine 1.7 Creatinine has been stable and usually better at 1.5 today Appreciate nephrology input and recommendation Will continue intravenous Lasix and monitor BMP daily Creatinine remains stable (5) Hyponatremia: Plan: Also noted to have acute hyponatremia on presentation with level of 125 Likely secondary to SIADH Urine sodium noted to be 11 and osmolality 391 Seems to be hypervolemic hyponatremia Restrict oral fluid and also treated with intravenous Lasix Sodium level has been 127 and stable Sodium level has been improving which is at 130 as of 05/30/2024 Sodium level has been normalized in (6) Hypertension, uncontrolled: Plan: Blood pressure remains elevated Medications are being adjusted Hydralazine dose has been increased to 100 mg 3 times daily (7) Pulmonary emphysema: Plan: If the respiratory status does not improve we will get pulmonary evaluation while in the hospital (8) History of adenocarcinoma of lung: (9) Heterozygous factor V Leiden mutation: Plan: Not on chronic anticoagulation Plan Progress note from prior hospitalist: Patient presents to the emergency room with acute hypoxic respiratory failure with additional findings acute kidney injury and hyponatremia and evident evidence of decompensated heart failure. Cardiology and nephrology consultations noted Monitor renal and sodium levels Hyponatremia suspicious for SIADH, additional laboratory studies pending, patient has multiple comorbidities as possible etiologies for SIADH including history of lung cancer, COPD. Titrate oxygen as able Procalcitonin low, discontinue antibiotics and observe Add Breo inhaler for COPD, patient does not seem to be in severe COPD exacerbation, will hold on systemic steroids at this time. Continue to monitor laboratory studies Continue to monitor blood pressure, adjust antihypertensives as needed Admission and Anticipated Discharge Date Admission Date: May 27, 2024 Subjective 05/28/2024 The patient was seen and examined in medical telemetry unit She was having more shortness of breath earlier this morning and was requiring 2 L oxygen by nasal cannula to maintain saturation She was noted to be hypoxic and showed widespread wheezing and crackles at the bases Denies any chest pain and/or palpitation Received nebulized bronchodilator, intravenous Lasix and intravenous Solu-Medrol and was feeling better 05/29/2024 The patient was seen and examined in medical telemetry unit She has been feeling much better but remains short of breath at rest and requiring high flow oxygen Condition has not changed since yesterday Denies any chest pain and/or palpitation 05/30/2024 The patient was seen and examined in medical telemetry unit She has been a little better but is still requiring high flow oxygen Remains generally weak and lethargic Denies any chest pain and/or palpitation 05/31/2024 The patient was seen and examined in medical telemetry unit She has been feeling a lot better Minimal wheezing and does not have any shortness of breath and has been saturating on 3L Review of Systems Review of Systems: All systems reviewed and are unremarkable except as noted below Physical Exam Physical Exam: Lying in bed with acute distress due to shortness of breath Constitutional: + ill appearing and average body habitus Eyes: PERRL, conjunctivae normal, anicteric sclerae ENMT: external ear and nose normal, oropharynx normal Neck: trachea midline, no thyromegaly Respiratory: + respiratory distress Auscultation: + diminished lung sounds, + crackles and + wheezes Cardiovascular: Rate/Rhythm: regular rate and regular rhythm; not tachycardic Heart Sounds: normal S1 and normal S2; no murmur Extremities: + edema (Trace edema bilateral) Gastrointestinal (Abdomen): Inspection/Auscultation: normal bowel sounds; abdomen not distended Percussion/Palpation: abdomen soft; abdomen nontender Neurologic: normal touch/pain/proprioception and moves all extremities; no focal motor deficits Psychiatric: A+Ox3, euthymic affect Lymphatic: no cervical or axillary lymphadenopathy Results & Data Results & Data Vital Signs (Past 12 Hours) Vital Signs Temp Pulse Pulse Resp BP Pulse Ox O2 Del Method 05/31/24 15:22 78 20 94 Nasal Cannula 05/31/24 15:03 36.8 C 77 18 158/61 H 91 Nasal Cannula 05/31/24 14:35 79 05/31/24 11:17 88 22 96 Nasal Cannula 05/31/24 10:58 37.1 C 74 18 155/56 H 93 Nasal Cannula 05/31/24 08:20 Nasal Cannula 05/31/24 08:20 05/31/24 07:21 36.7 C 81 18 165/76 H 95 Nasal Cannula 05/31/24 07:18 83 18 97 Nasal Cannula 05/31/24 07:00 76 05/31/24 04:06 36.6 C 75 20 162/60 H 95 Nasal Cannula O2 Del Method O2 Flow Rate 05/31/24 15:22 3 05/31/24 15:03 3 05/31/24 14:35 05/31/24 11:17 3 05/31/24 10:58 3 05/31/24 08:20 4 05/31/24 08:20 Room Air 05/31/24 07:21 3 05/31/24 07:18 3 05/31/24 07:00 05/31/24 04:06 4 Laboratory Results [facility] 05/31/24 06:13 Sodium 137 Potassium 3.8 Chloride 98 Carbon Dioxide 30 BUN 57 H Creatinine 1.43 H Glucose 127 H Calcium 7.7 L Medications Administered Current Inpatient Medications Acetaminophen (Acetaminophen 325 Mg Tab) 650 mg PO QID PRN PRN Reason: pain/fever Stop: 06/26/24 03:26 Last Admin: 05/29/24 20:29 Dose: 650 mg Albuterol (Albut/Ipratrop 3mg/0.5mg Neb 3 Ml Vial) 3 ml NEB Q2H PRN; Protocol PRN Reason: SOB/WHEEZING Stop: 06/26/24 03:41 Last Admin: 05/30/24 10:15 Dose: 3 ml Albuterol (Albuterol 0.083% Nebu Soln 3 Ml Vial) 2.5 mg INH Q4R [facility]; Protocol Stop: 06/27/24 08:29 Last Admin: 05/31/24 15:22 Dose: 2.5 mg Amlodipine Besylate (Amlodipine Besylate 5 Mg Tab) 10 mg PO DAILY [facility] Stop: 06/26/24 08:59 Last Admin: 05/31/24 08:24 Dose: 10 mg Aripiprazole (Aripiprazole 5 Mg Tab) 5 mg PO DAILY [facility] Stop: 06/26/24 08:59 Last Admin: 05/31/24 08:25 Dose: 5 mg Aspirin (Aspirin 81 Mg Ectab) 81 mg PO DAILY [facility] Stop: 06/26/24 08:59 Last Admin: 05/31/24 08:25 Dose: 81 mg Atorvastatin Calcium (Atorvastatin 20 Mg Tab) 20 mg PO DAILY [facility] Stop: 06/27/24 08:59 Last Admin: 05/31/24 08:25 Dose: 20 mg Benzonatate (Benzonatate 100 Mg Capsule) 100 mg PO TID PRN PRN Reason: cough Stop: 06/26/24 04:50 Budesonide (Budesonide 0.5 Mg/2 Ml Vial (Pulmicort)) 0.5 mg NEB BIDR [facility] Stop: 06/28/24 18:59 Last Admin: 05/31/24 07:17 Dose: 0.5 mg Carvedilol (Carvedilol 25 Mg Tab) 25 mg PO BID [facility] Stop: 06/29/24 20:59 Last Admin: 05/31/24 08:25 Dose: 25 mg Cetirizine HCl (Cetirizine Hcl 10 Mg Tablet) 10 mg PO DAILY [facility] Stop: 06/26/24 08:59 Last Admin: 05/31/24 08:25 Dose: 10 mg Clonazepam (Clonazepam 0.5 Mg Tab) 0.5 mg PO BID PRN PRN Reason: Anxiety Stop: 06/26/24 04:50 Last Admin: 05/30/24 19:54 Dose: 0.5 mg Formoterol Fumarate (Formoterol 20 Mcg/2 Ml Vial) 20 mcg NEB BIDR [facility] Stop: 06/28/24 18:59 Last Admin: 05/31/24 07:17 Dose: 20 mcg Furosemide (Furosemide 40 Mg/4 Ml Vial) 40 mg IV Q8H [facility] Stop: 06/27/24 09:59 Last Admin: 05/31/24 08:24 Dose: 40 mg Guaifenesin (Guaifenesin 600 Mg Tabcr) 600 mg PO Q12 [facility] Stop: 06/26/24 20:59 Last Admin: 05/31/24 08:25 Dose: 600 mg Heparin Sodium (Porcine) (Heparin Sod 5,000 Unit/0.5 Ml Vial) 5,000 units SQ Q8 [facility] Stop: 06/26/24 13:59 Last Admin: 05/31/24 13:15 Dose: 5,000 units Hydralazine HCl (Hydralazine Tab 50 Mg Tab) 100 mg PO TID [facility] Stop: 06/28/24 13:59 Last Admin: 05/31/24 13:15 Dose: 100 mg Promethazine HCl (Phenergan) 6.25 mg in 50.25 mls @ 201 mls/hr IV Q6H PRN PRN Reason: Nausea And Vomiting Stop: 06/26/24 03:26 Last Infusion: 05/30/24 06:00 Dose: Infused Ceftriaxone Sodium (Rocephin) 2,000 mg in 50 mls @ 100 mls/hr IV Q24H [facility] Stop: 06/07/24 08:59 Last Infusion: 05/31/24 08:59 Dose: Infused Azithromycin 250 mg/ Dextrose 252.5 mls @ 125 mls/hr IV Q24H [facility] Stop: 06/07/24 13:59 Last Infusion: 05/31/24 15:30 Dose: Infused Oxycodone HCl (Oxycodone Hcl Ir 5 Mg Tab (Immediate Release)) 5 mg PO Q4H PRN PRN Reason: Pain Stop: 06/10/24 03:26 Paroxetine HCl (Paroxetine Hcl 20 Mg Tab) 40 mg PO DAILY [facility] Stop: 06/26/24 08:59 Last Admin: 05/31/24 08:25 Dose: 40 mg Prednisone (Prednisone 20 Mg Tab) 40 mg PO DAILY [facility] Stop: 06/30/24 08:59 Last Admin: 05/31/24 08:25 Dose: 40 mg Terazosin HCl (Terazosin Hcl 5 Mg Cap) 5 mg PO HS [facility] Stop: 06/29/24 20:59 Last Admin: 05/30/24 19:56 Dose: 5 mg (7) Pulmonary emphysema Emphysema type: centrilobular Qualified Code(s): J43.2 - Centrilobular emphysema
[2024-06-01 07:54] LABS: BUN Creatinine Ratio 43.1 (10-20); Creatinine Clr Calc Pharmacy 44.5 ml/min; Est GFR (African American) 64.8 ml/min; Est GFR (Non-African American) 55.9 ml/min; Magnesium 2.3 mg/dl (1.7-2.4); Potassium 3.4 mmol/L (3.5-5.1)
[2024-06-01] MEDS: POTASSIUM CHLORIDE CRTAB 20 MEQ TABCR PO STA (08:56)
--- NOTE | 2024-06-01 10:48 | Cardiology Progress Note ---
Date of Service June 01, 2024 Assessment & Plan (1) Acute hypoxemic respiratory failure: (2) Acute on chronic diastolic heart failure with preserved ejection fraction: (3) Acute exacerbation of chronic obstructive pulmonary disease: (4) Hypertensive urgency: (5) Pleural effusion: Plan Sodium improved. Furosemide reduced from 60 mg IV every 8 hours to 40 mg IV every 8 hours on 05/30/2024. Would attribute significant improvement in wheezing to her change in bronchodilators and addition of prednisone. Would increase activity. She really needs to get out of bed and in the chair and maybe go for a walk today. Anticipate change to torsemide 40 mg p.o. daily on 06/02/2024, with anticipated discharge plan if she continues to progress. Admission and Anticipated Discharge Date Admission Date: May 27, 2024 Subjective Patient seen in cardiology follow-up. No acute complaints. Rested well overnight last night. Slightly more audible wheezing noted today compared to yesterday. Telemetry reveals sinus rhythm in the 70s with occasional PVCs. Physical Exam Physical Exam: General: A&Ox3. Eyes: PER. Neck: No JVD. Heart: Regular at 84 bpm. No murmur. No rub. Lungs: Diminished. Decreased. Improved aeration. No wheezing appreciated. Abdomen: +BS. Soft. Nontender. No masses or organomegaly. Extremities: No clubbing, cyanosis, or edema. Limited neurological examination is without focal deficits. Results & Data Vital Signs (Past 12 Hours) Vital Signs Temp Pulse Pulse Pulse Resp BP BP 06/01/24 10:24 76 18 06/01/24 08:19 36.7 C 73 16 171/72 H 06/01/24 08:10 36.8 C 68 16 172/68 H 06/01/24 08:00 06/01/24 07:00 69 06/01/24 06:57 75 18 06/01/24 03:19 85 17 06/01/24 02:46 36.4 C L 73 18 156/74 H 05/31/24 22:56 83 17 Pulse Ox O2 Del Method O2 Del Method O2 Flow Rate O2 Flow Rate 06/01/24 10:24 96 Nasal Cannula 2 06/01/24 08:19 96 Nasal Cannula 2 06/01/24 08:10 96 Nasal Cannula 2 06/01/24 08:00 Nasal Cannula 3 06/01/24 07:00 06/01/24 06:57 97 Nasal Cannula 2 06/01/24 03:19 96 Nasal Cannula 2 06/01/24 02:46 94 Nasal Cannula 2 05/31/24 22:56 97 Nasal Cannula 2 Laboratory Results Comprehensive Metabolic Panel 06/01/24 Range/Units 06:26 Sodium 141 (136-145) mmol/L Potassium 3.4 L (3.5-5.1) mmol/L Chloride 99 (98-107) mmol/L Carbon Dioxide 35 H (21-32) mmol/L BUN 47 H (6-23) mg/dl Creatinine 1.09 D (0.6-1.2) mg/dl Glucose 102 H (70-99(Fasting)) mg/dl Calcium 8.0 L (8.6-10.3) mg/dl Intake and Output 05/31/24 06/01/24 06/01/24 22:59 06:59 14:59 Intake Total 402.5 / 602.5 150 / 602.5 230 / 230 Output Total 950 / 3500 1600 / 3500 600 / 600 Balance -547.5 / -2897.5 -1450 / -2897.5 -370 / -370 Intake: IV 252.5 / 302.5 50 / 50 Azithromycin 250 mg In Dextrose 252.5 / 252.5 5% 250 ml @ 125 mls/hr IV Q24H [facility] Rx#:[id number] cefTRIAXone SODIUM 2,000 mg In 50 / 50 50 ml @ 100 mls/hr IV Q24H [facility] Rx#:[id number] Oral 150 / 300 150 / 300 180 / 180 Output: Urine 950 / 3500 1600 / 3500 600 / 600 Other: Weight 54.7 kg Weight Measurement Method Built in [facility]
--- NOTE | 2024-06-01 12:29 | Nephrology Progress Note ---
Date of Service June 01, 2024 Assessment & Plan (1) GARLAND (acute kidney injury): Plan: on admission creatinine was 1.7 which is higher than her baseline of normal. however her renal function has been all over the place in the last few months with some episodes of acute kidney injury also. Most recent outpatient lab was from May 07, 2024 and showed a creatinine of 1.4. looking at the trend this can be regarded as her baseline. On admission it was 1.7, this is now at baseline Etiology of acute kidney injury was most likely hemodynamic in the setting of respiratory failure and decompensated heart failure. no further workup is needed for the etiology of acute kidney injury she does need daily renal panel as well as strict input output charting. - Change to torsemide 40 mg from and DC IV Lasix from tomorrow (2) Acute hyponatremia: Plan: him to assume this as hypervolemic hyponatremia in the setting of decompensated congestive heart failure. .Na wnl now, with diuresis. start on torsemide as above (3) Acute hypoxemic respiratory failure: (4) Acute on chronic diastolic heart failure with preserved ejection fraction: Plan: Admission and Anticipated Discharge Date Admission Date: May 27, 2024 Subjective No acute complaints. Rested well overnight last night. Wheezing betteer Review of Systems 2 Review of Systems: All systems reviewed & are unremarkable except as noted in HPI & below Physical Exam 2 Physical Exam: General: A&Ox3. Eyes: KATHIE Neck: No JVD. Heart: Regular,No murmur. No rub. Lungs: Diminished. Decreased. Improved aeration. No wheezing appreciated. Abdomen: +BS. Soft. Nontender. No masses or organomegaly. Extremities: No clubbing, cyanosis, or edema. Limited neurological examination is without focal deficits. Results & Data Vital Signs (Past 12 Hours) Vital Signs Temp Pulse Pulse Pulse Pulse Resp BP 06/01/24 11:47 37.0 C 65 20 06/01/24 11:46 37.0 C 06/01/24 11:40 06/01/24 11:00 37.1 C 71 19 06/01/24 10:24 76 18 06/01/24 08:19 36.7 C 73 16 06/01/24 08:10 36.8 C 68 16 172/68 H 06/01/24 08:00 06/01/24 07:00 69 06/01/24 06:57 75 18 06/01/24 03:19 85 17 06/01/24 02:46 36.4 C L 73 18 BP Pulse Ox O2 Del Method O2 Del Method O2 Flow Rate O2 Flow Rate 06/01/24 11:47 160/80 H 96 Nasal Cannula 2 06/01/24 11:46 06/01/24 11:40 Nasal Cannula 2 06/01/24 11:00 160/69 H 94 Nasal Cannula 2 06/01/24 10:24 96 Nasal Cannula 2 06/01/24 08:19 171/72 H 96 Nasal Cannula 2 06/01/24 08:10 96 Nasal Cannula 2 06/01/24 08:00 Nasal Cannula 3 06/01/24 07:00 06/01/24 06:57 97 Nasal Cannula 2 06/01/24 03:19 96 Nasal Cannula 2 06/01/24 02:46 156/74 H 94 Nasal Cannula 2 Laboratory Results 05/29/24 06:03 06/01/24 06:26
--- NOTE | 2024-06-01 15:36 | Hospitalist Progress Note ---
Date of Service June 01, 2024 Assessment & Plan (1) Acute on chronic diastolic heart failure with preserved ejection fraction: Plan: Presented with worsening shortness of breath and noted to have Hypoxic respiratory failure secondary to acute on chronic diastolic heart failure and is complicated by acute exacerbation of COPD Appreciate cardiology input and recommendation Has been getting intravenous Lasix 40 mg every 8 hourly as per recommendation by the entertainment manager Clinically little better and will be monitored on the medical telemetry unit Has not had enough diuresis and is still requiring high flow oxygen to maintain saturation Lasix has been increased to 60 mg every 8 hours intravenously Clinically a little better with output- we will continue current management Lasix has been decreased to 60 mg intravenously Q8 hourly Will monitor output and adjust doses accordingly Clinically much better with the improving symptoms and decreasing wheezing and shortness of breath Will continue reduced dose of intravenous Lasix for today and tomorrow Will get PT and OT evaluation Likely discharge on Sunday (2) Acute hypoxemic respiratory failure: (3) COPD exacerbation: Plan: Has significant emphysema on the x-ray Clinically has COPD exacerbation Will continue with regular bronchodilator and intravenous Solu-Medrol Clinically not any better with ongoing requirement of high flow oxygen to maintain saturation Significant emphysematous change with history of CT of the lung we will get pulmonary evaluation for further management Appreciate pulmonary input and recommendation Will discontinue vancomycin and add azithromycin for atypical coverage Will continue current antibiotic and changed to oral on discharge to finish the course of 10 days in total (4) GARLAND (acute kidney injury): Plan: Right to have GARLAND on CKD on admission with creatinine 1.7 Creatinine has been stable and usually better at 1.5 today Appreciate nephrology input and recommendation Will continue intravenous Lasix and monitor BMP daily Creatinine remains stable (5) Hyponatremia: Plan: Also noted to have acute hyponatremia on presentation with level of 125 Likely secondary to SIADH Urine sodium noted to be 11 and osmolality 391 Seems to be hypervolemic hyponatremia Restrict oral fluid and also treated with intravenous Lasix Sodium level has been 127 and stable Sodium level has been improving which is at 130 as of 05/30/2024 Sodium level has been normalized (6) Hypertension, uncontrolled: Plan: Blood pressure remains elevated Medications are being adjusted Hydralazine dose has been increased to 100 mg 3 times daily (7) Pulmonary emphysema: Plan: If the respiratory status does not improve we will get pulmonary evaluation wh ile in the hospital (8) History of adenocarcinoma of lung: (9) Heterozygous factor V Leiden mutation: Plan: Not on chronic anticoagulation Plan Progress note from prior hospitalist: Patient presents to the emergency room with acute hypoxic respiratory failure with additional findings acute kidney injury and hyponatremia and evident evidence of decompensated heart failure. Cardiology and nephrology consultations noted Monitor renal and sodium levels Hyponatremia suspicious for SIADH, additional laboratory studies pending, patient has multiple comorbidities as possible etiologies for SIADH including history of lung cancer, COPD. Titrate oxygen as able Procalcitonin low, discontinue antibiotics and observe Add Breo inhaler for COPD, patient does not seem to be in severe COPD exacerbation, will hold on systemic steroids at this time. Continue to monitor laboratory studies Continue to monitor blood pressure, adjust antihypertensives as needed Admission and Anticipated Discharge Date Admission Date: May 27, 2024 Subjective 05/28/2024 The patient was seen and examined in medical telemetry unit She was having more shortness of breath earlier this morning and was requiring 2 L oxygen by nasal cannula to maintain saturation She was noted to be hypoxic and showed widespread wheezing and crackles at the bases Denies any chest pain and/or palpitation Received nebulized bronchodilator, intravenous Lasix and intravenous Solu-Medrol and was feeling better 05/29/2024 The patient was seen and examined in medical telemetry unit She has been feeling much better but remains short of breath at rest and requiring high flow oxygen Condition has not changed since yesterday Denies any chest pain and/or palpitation 05/30/2024 The patient was seen and examined in medical telemetry unit She has been a little better but is still requiring high flow oxygen Remains generally weak and lethargic Denies any chest pain and/or palpitation 05/31/2024 The patient was seen and examined in medical telemetry unit She has been feeling a lot better Minimal wheezing and does not have any shortness of breath and has been saturating on 3L 06/01/2024 Patient was seen and examined in medical telemetry unit She has been feeling much better Has little wheezing but no shortness of breath at rest Has been saturating on 2 L nasal cannula Review of Systems Review of Systems: All systems reviewed and are unremarkable except as noted below Physical Exam Physical Exam: Lying in bed with acute distress due to shortness of breath Constitutional: + ill appearing and average body habitus Eyes: PERRL, conjunctivae normal, anicteric sclerae ENMT: external ear and nose normal, oropharynx normal Neck: trachea midline, no thyromegaly Respiratory: + respiratory distress Auscultation: + diminished lung sounds, + crackles and + wheezes Cardiovascular: Rate/Rhythm: regular rate and regular rhythm; not tachycardic Heart Sounds: normal S1 and normal S2; no murmur Extremities: + edema (Trace edema bilateral) Gastrointestinal (Abdomen): Inspection/Auscultation: normal bowel sounds; abdomen not distended Percussion/Palpation: abdomen soft; abdomen nontender Neurologic: normal touch/pain/proprioception and moves all extremities; no focal motor deficits Psychiatric: A+Ox3, euthymic affect Lymphatic: no cervical or axillary lymphadenopathy Results & Data Results & Data Vital Signs (Past 12 Hours) Vital Signs Temp Pulse Pulse Pulse Pulse Resp BP 06/01/24 15:25 76 20 06/01/24 11:47 37.0 C 65 20 06/01/24 11:46 37.0 C 06/01/24 11:40 06/01/24 11:00 37.1 C 71 19 06/01/24 10:24 76 18 06/01/24 08:19 36.7 C 73 16 06/01/24 08:10 36.8 C 68 16 172/68 H 06/01/24 08:00 06/01/24 07:00 69 06/01/24 06:57 75 18 BP Pulse Ox O2 Del Method O2 Del Method O2 Flow Rate O2 Flow Rate 06/01/24 15:25 98 Nasal Cannula 2 06/01/24 11:47 160/80 H 96 Nasal Cannula 2 06/01/24 11:46 06/01/24 11:40 Nasal Cannula 2 06/01/24 11:00 160/69 H 94 Nasal Cannula 2 06/01/24 10:24 96 Nasal Cannula 2 06/01/24 08:19 171/72 H 96 Nasal Cannula 2 06/01/24 08:10 96 Nasal Cannula 2 06/01/24 08:00 Nasal Cannula 3 06/01/24 07:00 06/01/24 06:57 97 Nasal Cannula 2 Laboratory Results [facility] 06/01/24 06:26 Sodium 141 Potassium 3.4 L Chloride 99 Carbon Dioxide 35 H BUN 47 H Creatinine 1.09 D Glucose 102 H Calcium 8.0 L Medications Administered Current Inpatient Medications Acetaminophen (Acetaminophen 325 Mg Tab) 650 mg PO QID PRN PRN Reason: pain/fever Stop: 06/26/24 03:26 Last Admin: 05/29/24 20:29 Dose: 650 mg Albuterol (Albut/Ipratrop 3mg/0.5mg Neb 3 Ml Vial) 3 ml NEB Q2H PRN; Protocol PRN Reason: SOB/WHEEZING Stop: 06/26/24 03:41 Last Admin: 05/30/24 10:15 Dose: 3 ml Albuterol (Albuterol 0.083% Nebu Soln 3 Ml Vial) 2.5 mg INH Q4R [facility]; Protocol Stop: 06/27/24 08:29 Last Admin: 06/01/24 15:25 Dose: 2.5 mg Amlodipine Besylate (Amlodipine Besylate 5 Mg Tab) 10 mg PO DAILY [facility] Stop: 06/26/24 08:59 Last Admin: 06/01/24 08:48 Dose: 10 mg Aripiprazole (Aripiprazole 5 Mg Tab) 5 mg PO DAILY [facility] Stop: 06/26/24 08:59 Last Admin: 06/01/24 08:48 Dose: 5 mg Aspirin (Aspirin 81 Mg Ectab) 81 mg PO DAILY [facility] Stop: 06/26/24 08:59 Last Admin: 06/01/24 08:49 Dose: 81 mg Atorvastatin Calcium (Atorvastatin 20 Mg Tab) 20 mg PO DAILY [facility] Stop: 06/27/24 08:59 Last Admin: 06/01/24 08:48 Dose: 20 mg Benzonatate (Benzonatate 100 Mg Capsule) 100 mg PO TID PRN PRN Reason: cough Stop: 06/26/24 04:50 Budesonide (Budesonide 0.5 Mg/2 Ml Vial (Pulmicort)) 0.5 mg NEB BIDR [facility] Stop: 06/28/24 18:59 Last Admin: 06/01/24 06:56 Dose: 0.5 mg Carvedilol (Carvedilol 25 Mg Tab) 25 mg PO BID [facility] Stop: 06/29/24 20:59 Last Admin: 06/01/24 08:49 Dose: 25 mg Cetirizine HCl (Cetirizine Hcl 10 Mg Tablet) 10 mg PO DAILY [facility] Stop: 06/26/24 08:59 Last Admin: 06/01/24 08:49 Dose: 10 mg Clonazepam (Clonazepam 0.5 Mg Tab) 0.5 mg PO BID PRN PRN Reason: Anxiety Stop: 06/26/24 04:50 Last Admin: 05/31/24 19:20 Dose: 0.5 mg Formoterol Fumarate (Formoterol 20 Mcg/2 Ml Vial) 20 mcg NEB BIDR [facility] Stop: 06/28/24 18:59 Last Admin: 06/01/24 06:56 Dose: 20 mcg Furosemide (Furosemide 40 Mg/4 Ml Vial) 40 mg IV Q8H [facility] Stop: 06/27/24 09:59 Last Admin: 06/01/24 08:50 Dose: 40 mg Guaifenesin (Guaifenesin 600 Mg Tabcr) 600 mg PO Q12 [facility] Stop: 06/26/24 20:59 Last Admin: 06/01/24 08:49 Dose: 600 mg Heparin Sodium (Porcine) (Heparin Sod 5,000 Unit/0.5 Ml Vial) 5,000 units SQ Q8 [facility] Stop: 06/26/24 13:59 Last Admin: 06/01/24 06:15 Dose: 5,000 units Hydralazine HCl (Hydralazine Tab 50 Mg Tab) 100 mg PO TID [facility] Stop: 06/28/24 13:59 Last Admin: 06/01/24 08:49 Dose: 100 mg Promethazine HCl (Phenergan) 6.25 mg in 50.25 mls @ 201 mls/hr IV Q6H PRN PRN Reason: Nausea And Vomiting Stop: 06/26/24 03:26 Last Infusion: 05/30/24 06:00 Dose: Infused Ceftriaxone Sodium (Rocephin) 2,000 mg in 50 mls @ 100 mls/hr IV Q24H [facility] Stop: 06/07/24 08:59 Last Infusion: 06/01/24 10:03 Dose: Infused Azithromycin 250 mg/ Dextrose 252.5 mls @ 125 mls/hr IV Q24H [facility] Stop: 06/07/24 13:59 Last Infusion: 05/31/24 15:30 Dose: Infused Oxycodone HCl (Oxycodone Hcl Ir 5 Mg Tab (Immediate Release)) 5 mg PO Q4H PRN PRN Reason: Pain Stop: 06/10/24 03:26 Paroxetine HCl (Paroxetine Hcl 20 Mg Tab) 40 mg PO DAILY [facility] Stop: 06/26/24 08:59 Last Admin: 06/01/24 08:49 Dose: 40 mg Prednisone (Prednisone 20 Mg Tab) 40 mg PO DAILY [facility] Stop: 06/30/24 08:59 Last Admin: 06/01/24 08:48 Dose: 40 mg Terazosin HCl (Terazosin Hcl 5 Mg Cap) 5 mg PO HS [facility] Stop: 06/29/24 20:59 Last Admin: 05/31/24 20:19 Dose: 5 mg (7) Pulmonary emphysema Emphysema type: centrilobular Qualified Code(s): J43.2 - Centrilobular emphysema
[2024-06-02 06:40] LABS: Basophils # (auto) 0.01 K/uL (0.00-0.20); Basophils % (auto) 0.1 %; Hematocrit (blood only) 27.4 % (37.0-47.0); Hemoglobin 9.1 g/dl (12.0-16.0); Immature Granulocytes # (auto) 0.15 K/uL (0.01-0.20); Immature Granulocytes % (auto) 1.5 %; Lymphocytes # (auto) 1.77 K/uL (1.20-3.40); Mean Corpuscular Hemoglobin 28.8 pg (25.0-34.0); Mean Corpuscular Hgb Conc 33.2 g/dL (32.0-36.0); Mean Corpuscular Volume 86.7 fL (80.0-100.0); Mean Platelet Volume 10.4 fL (9.4-12.4); Monocytes # (auto) 0.86 K/uL (0.11-0.59); Monocytes % (auto) 8.7 %; Neutrophils # (auto) 7.04 K/uL (1.40-6.50); Neutrophils % (auto) 71.7 %; Platelet Count 194 K/uL (130-400); RDW Coefficient of Variation 15.6 % (11.5-14.5); Red Blood Count 3.16 M/uL (4.20-5.40); White Blood Count 9.83 K/ul (4.8-10.8)
[2024-06-02 07:00] LABS: BUN Creatinine Ratio 36.1 (10-20); Calcium 8.1 mg/dl (8.6-10.3); Creatinine Clr Calc Pharmacy 44.9 ml/min; Est GFR (African American) 65.5 ml/min; Est GFR (Non-African American) 56.5 ml/min; Magnesium 2.1 mg/dl (1.7-2.4); Potassium 3.8 mmol/L (3.5-5.1)
--- NOTE | 2024-06-02 11:30 | Cardiology Progress Note ---
Date of Service June 02, 2024 Assessment & Plan (1) Acute hypoxemic respiratory failure: (2) Acute on chronic diastolic heart failure with preserved ejection fraction: (3) Acute exacerbation of chronic obstructive pulmonary disease: (4) Hypertensive urgency: (5) Pleural effusion: Plan Sodium improved. Furosemide reduced from 60 mg IV every 8 hours to 40 mg IV every 8 hours on 05/30/2024. Sodium up to 140 mmol/L today. Discontinue IV furosemide. Start torsemide 40 mg daily on 06/03/2024. Would attribute significant improvement in wheezing to her change in bronchodilators and addition of prednisone. Would increase activity. She really needs to get out of bed and in the chair and maybe go for a walk today. Ongoing issues with high blood pressure noted, however patient is on multiple agents, amlodipine 10 mg daily, hydralazine 100 mg 3 times daily, carvedilol 25 mg twice daily, terazosin and 5 mg daily, and diuretic and therefore would not titrate any of these agents additionally. Admission and Anticipated Discharge Date Admission Date: May 27, 2024 Subjective Patient without acute complaints this morning. Wheezing improved. Telemetry reveals sinus rhythm in the 70s. Physical Exam Physical Exam: General: A&Ox3. Eyes: PER. Neck: No JVD. Heart: Regular at 84 bpm. No murmur. No rub. Lungs: Diminished. Decreased. Improved aeration. No wheezing appreciated. Abdomen: +BS. Soft. Nontender. No masses or organomegaly. Extremities: No clubbing, cyanosis, or edema. Limited neurological examination is without focal deficits. Results & Data Vital Signs (Past 12 Hours) Vital Signs Temp Pulse Pulse Pulse Resp BP Pulse Ox 06/02/24 10:17 06/02/24 10:10 06/02/24 10:04 66 06/02/24 07:56 36.9 C 67 20 190/74 H 97 06/02/24 07:35 66 16 96 06/02/24 03:20 36.8 C 75 18 175/74 H 94 06/02/24 03:08 75 18 97 06/02/24 00:03 06/02/24 00:00 Pulse Ox O2 Del Method O2 Del Method O2 Flow Rate O2 Flow Rate 06/02/24 10:17 Nasal Cannula 2 06/02/24 10:10 97 Nasal Cannula 2 06/02/24 10:04 06/02/24 07:56 High Flow Nasal Cannula 2 06/02/24 07:35 Nasal Cannula 2 06/02/24 03:20 Nasal Cannula 2 06/02/24 03:08 Nasal Cannula 2 06/02/24 00:03 Nasal Cannula 2 06/02/24 00:00 Nasal Cannula 2 Laboratory Results CBC 06/02/24 Range/Units 06:18 WBC 9.83 (4.8-10.8) K/ul RBC 3.16 L (4.20-5.40) M/uL Hgb 9.1 L (12.0-16.0) g/dl Hct 27.4 L (37.0-47.0) % Plt Count 194 (130-400) K/uL Neut # (Auto) 7.04 H (1.40-6.50) K/uL Lymph # (Auto) 1.77 (1.20-3.40) K/uL Anderson # (Auto) 0.86 H (0.11-0.59) K/uL Eos # (Auto) 0.00 (0.00-0.50) K/uL Baso # (Auto) 0.01 (0.00-0.20) K/uL Comprehensive Metabolic Panel 06/02/24 Range/Units 06:18 Sodium 140 (136-145) mmol/L Potassium 3.8 (3.5-5.1) mmol/L Chloride 97 L (98-107) mmol/L Carbon Dioxide 39 H (21-32) mmol/L BUN 39 H (6-23) mg/dl Creatinine 1.08 (0.6-1.2) mg/dl Glucose 95 (70-99(Fasting)) mg/dl Calcium 8.1 L (8.6-10.3) mg/dl Intake and Output 06/01/24 06/02/24 06/02/24 22:59 06:59 14:59 Intake Total 677.5 / 1507.5 140 / 1507.5 50 / 50 Output Total 1900 / 5900 2000 / 5900 Balance -1222.5 / -4392.5 -1860 / -4392.5 50 / 50 Intake: IV 252.5 / 302.5 50 / 50 Azithromycin 250 mg In Dextrose 252.5 / 252.5 5% 250 ml @ 125 mls/hr IV Q24H [facility] Rx#:[id number] cefTRIAXone SODIUM 2,000 mg In 50 / 50 50 ml @ 100 mls/hr IV Q24H [facility] Rx#:[id number] Oral 425 / 1205 140 / 1205 Output: Urine 1900 / 5900 2000 / 5900 Other: Weight 52.1 kg Weight Measurement Method Built in [facility]
--- NOTE | 2024-06-02 13:50 | Hospitalist Progress Note ---
Date of Service June 02, 2024 Assessment & Plan (1) Acute on chronic diastolic heart failure with preserved ejection fraction: Plan: Presented with worsening shortness of breath and noted to have Hypoxic respiratory failure secondary to acute on chronic diastolic heart failure and is complicated by acute exacerbation of COPD Appreciate cardiology input and recommendation Has been getting intravenous Lasix 40 mg every 8 hourly as per recommendation by the associate merchandise planner Clinically little better and will be monitored on the medical telemetry unit Has not had enough diuresis and is still requiring high flow oxygen to maintain saturation Lasix has been increased to 60 mg every 8 hours intravenously Clinically a little better with output- we will continue current management Lasix has been decreased to 60 mg intravenously Q8 hourly Will monitor output and adjust doses accordingly Clinically much better with the improving symptoms and decreasing wheezing and shortness of breath Will continue reduced dose of intravenous Lasix for today and tomorrow Will get PT and OT evaluation Clinically much better without any shortness of breath at rest and has been saturating normally on room air (2) Acute hypoxemic respiratory failure: (3) COPD exacerbation: Plan: Has significant emphysema on the x-ray Clinically has COPD exacerbation Will continue with regular bronchodilator and intravenous Solu-Medrol Clinically not any better with ongoing requirement of high flow oxygen to maintain saturation Significant emphysematous change with history of CT of the lung we will get pulmonary evaluation for further management Appreciate pulmonary input and recommendation Will discontinue vancomycin and add azithromycin for atypical coverage Will continue current antibiotic and changed to oral on discharge to finish the course of 10 days in total No wheezing and/or crackles (4) GARLAND (acute kidney injury): Plan: Right to have GARLAND on CKD on admission with creatinine 1.7 Creatinine has been stable and usually better at 1.5 today Appreciate nephrology input and recommendation Will continue intravenous Lasix and monitor BMP daily Creatinine remains stable (5) Hyponatremia: Plan: Also noted to have acute hyponatremia on presentation with level of 125 Likely secondary to SIADH Urine sodium noted to be 11 and osmolality 391 Seems to be hypervolemic hyponatremia Restrict oral fluid and also treated with intravenous Lasix Sodium level has been 127 and stable Sodium level has been improving which is at 130 as of 05/30/2024 Sodium level has been normalized sodium level is 140 as of 06/02/2024 (6) Hypertension, uncontrolled: Plan: Blood pressure remains elevated Medications are being adjusted Hydralazine dose has been increased to 100 mg 3 times daily (7) Pulmonary emphysema: Plan: If the respiratory status does not improve we will get pulmonary evaluation while in the hospital (8) History of adenocarcinoma of lung: (9) Heterozygous factor V Leiden mutation: Plan: Not on chronic anticoagulation Plan Progress note from prior hospitalist: Patient presents to the emergency room with acute hypoxic respiratory failure with additional findings acute kidney injury and hyponatremia and evident evide nce of decompensated heart failure. Cardiology and nephrology consultations noted Monitor renal and sodium levels Hyponatremia suspicious for SIADH, additional laboratory studies pending, patient has multiple comorbidities as possible etiologies for SIADH including history of lung cancer, COPD. Titrate oxygen as able Procalcitonin low, discontinue antibiotics and observe Add Breo inhaler for COPD, patient does not seem to be in severe COPD exacerbation, will hold on systemic steroids at this time. Continue to monitor laboratory studies Continue to monitor blood pressure, adjust antihypertensives as needed Admission and Anticipated Discharge Date Admission Date: May 27, 2024 Subjective 05/28/2024 The patient was seen and examined in medical telemetry unit She was having more shortness of breath earlier this morning and was requiring 2 L oxygen by nasal cannula to maintain saturation She was noted to be hypoxic and showed widespread wheezing and crackles at the bases Denies any chest pain and/or palpitation Received nebulized bronchodilator, intravenous Lasix and intravenous Solu-Medrol and was feeling better 05/29/2024 The patient was seen and examined in medical telemetry unit She has been feeling much better but remains short of breath at rest and req uiring high flow oxygen Condition has not changed since yesterday Denies any chest pain and/or palpitation 05/30/2024 The patient was seen and examined in medical telemetry unit She has been a little better but is still requiring high flow oxygen Remains generally weak and lethargic Denies any chest pain and/or palpitation 05/31/2024 The patient was seen and examined in medical telemetry unit She has been feeling a lot better Minimal wheezing and does not have any shortness of breath and has been saturating on 3L 06/01/2024 Patient was seen and examined in medical telemetry unit She has been feeling much better Has little wheezing but no shortness of breath at rest Has been saturating on 2 L nasal cannula 06/02/2024 Patient was seen and examined in medical telemetry unit She has been much better without any cough and no shortness of breath at rest Saturating normally on room air Likely discharge tomorrow Review of Systems Review of Systems: All systems reviewed and are unremarkable except as noted below Physical Exam Physical Exam: Lying in bed without any acute distress distress Constitutional: + ill appearing and average body habitus Eyes: PERRL, conjunctivae normal, anicteric sclerae ENMT: external ear and nose normal, oropharynx normal Neck: trachea midline, no thyromegaly Respiratory: + respiratory distress Auscultation: + diminished lung sounds; no crackles and no wheezes Cardiovascular: Rate/Rhythm: regular rate and regular rhythm; not tachycardic Heart Sounds: normal S1 and normal S2; no murmur Extremities: + edema (Trace edema bilateral) Gastrointestinal (Abdomen): Inspection/Auscultation: normal bowel sounds; ab domen not distended Percussion/Palpation: abdomen soft; abdomen nontender Neurologic: normal touch/pain/proprioception and moves all extremities; no focal motor deficits Psychiatric: A+Ox3, euthymic affect Lymphatic: no cervical or axillary lymphadenopathy Results & Data Results & Data Vital Signs (Past 12 Hours) Vital Signs Temp Pulse Pulse Pulse Resp BP Pulse Ox 06/02/24 11:34 64 18 92 06/02/24 10:17 06/02/24 10:10 06/02/24 10:04 66 06/02/24 07:56 36.9 C 67 20 190/74 H 97 06/02/24 07:35 66 16 96 06/02/24 03:20 36.8 C 75 18 175/74 H 94 06/02/24 03:08 75 18 97 Pulse Ox O2 Del Method O2 Del Method O2 Flow Rate O2 Flow Rate 06/02/24 11:34 Room Air 06/02/24 10:17 Nasal Cannula 2 06/02/24 10:10 97 Nasal Cannula 2 06/02/24 10:04 06/02/24 07:56 High Flow Nasal Cannula 2 06/02/24 07:35 Nasal Cannula 2 06/02/24 03:20 Nasal Cannula 2 06/02/24 03:08 Nasal Cannula 2 Laboratory Results Short CBC 06/02/24 Range/Units 06:18 WBC 9.83 (4.8-10.8) K/ul Hgb 9.1 L (12.0-16.0) g/dl Hct 27.4 L (37.0-47.0) % Plt Count 194 (130-400) K/uL BMP 06/02/24 06:18 Sodium 140 Potassium 3.8 Chloride 97 L Carbon Dioxide 39 H BUN 39 H Creatinine 1.08 Glucose 95 Calcium 8.1 L Medications Administered Current Inpatient Medications Acetaminophen (Acetaminophen 325 Mg Tab) 650 mg PO QID PRN PRN Reason: pain/fever Stop: 06/26/24 03:26 Last Admin: 05/29/24 20:29 Dose: 650 mg Albuterol (Albut/Ipratrop 3mg/0.5mg Neb 3 Ml Vial) 3 ml NEB Q2H PRN; Protocol PRN Reason: SOB/WHEEZING Stop: 06/26/24 03:41 Last Admin: 06/01/24 23:06 Dose: 3 ml Albuterol (Albuterol 0.083% Nebu Soln 3 Ml Vial) 2.5 mg INH Q4R MEDARDO; Protocol Stop: 06/27/24 08:29 Last Admin: 06/02/24 11:32 Dose: 2.5 mg Amlodipine Besylate (Amlodipine Besylate 5 Mg Tab) 10 mg PO DAILY [facility]ARDO Stop: 06/26/24 08:59 Last Admin: 06/02/24 08:53 Dose: 10 mg Aripiprazole (Aripiprazole 5 Mg Tab) 5 mg PO DAILY [facility]ARDO Stop: 06/26/24 08:59 Last Admin: 06/02/24 08:54 Dose: 5 mg Aspirin (Aspirin 81 Mg Ectab) 81 mg PO DAILY [facility]ARD[facility] Stop: 06/26/24 08:59 Last Admin: 06/02/24 08:54 Dose: 81 mg Atorvastatin Calcium (Atorvastatin 20 Mg Tab) 20 mg PO DAILY [facility]ARDO Stop: 06/27/24 08:59 Last Admin: 06/02/24 08:54 Dose: 20 mg Benzonatate (Benzonatate 100 Mg Capsule) 100 mg PO TID PRN PRN Reason: cough Stop: 06/26/24 04:50 Budesonide (Budesonide 0.5 Mg/2 Ml Vial (Pulmicort)) 0.5 mg NEB BIDR MEDARDO Stop: 06/28/24 18:59 Last Admin: 06/02/24 07:32 Dose: 0.5 mg Carvedilol (Carvedilol 25 Mg Tab) 25 mg PO BID [facility]ARDO Stop: 06/29/24 20:59 Last Admin: 06/02/24 08:55 Dose: 25 mg Cetirizine HCl (Cetirizine Hcl 10 Mg Tablet) 10 mg PO DAILY [facility]ARDO Stop: 06/26/24 08:59 Last Admin: 06/02/24 08:55 Dose: 10 mg Clonazepam (Clonazepam 0.5 Mg Tab) 0.5 mg PO BID PRN PRN Reason: Anxiety Stop: 06/26/24 04:50 Last Admin: 06/01/24 21:19 Dose: 0.5 mg Formoterol Fumarate (Formoterol 20 Mcg/2 Ml Vial) 20 mcg NEB BIDR [facility]ARDO Stop: 06/28/24 18:59 Last Admin: 06/02/24 07:33 Dose: 20 mcg Guaifenesin (Guaifenesin 600 Mg Tabcr) 600 mg PO Q12 [facility] Stop: 06/26/24 20:59 Last Admin: 06/02/24 08:56 Dose: 600 mg Heparin Sodium (Porcine) (Heparin Sod 5,000 Unit/0.5 Ml Vial) 5,000 units SQ Q8 [facility]ARDO Stop: 06/26/24 13:59 Last Admin: 06/02/24 03:22 Dose: 5,000 units Hydralazine HCl (Hydralazine Tab 50 Mg Tab) 100 mg PO TID [facility] Stop: 06/28/24 13:59 Last Admin: 06/02/24 08:56 Dose: 100 mg Promethazine HCl (Phenergan) 6.25 mg in 50.25 mls @ 201 mls/hr IV Q6H PRN PRN Reason: Nausea And Vomiting Stop: 06/26/24 03:26 Last Infusion: 05/30/24 06:00 Dose: Infused Ceftriaxone Sodium (Rocephin) 2,000 mg in 50 mls @ 100 mls/hr IV Q24H [facility] Stop: 06/07/24 08:59 Last Infusion: 06/02/24 09:56 Dose: Infused Azithromycin 250 mg/ Dextrose 252.5 mls @ 125 mls/hr IV Q24H [facility] Stop: 06/07/24 13:59 Last Infusion: 06/01/24 16:48 Dose: Infused Oxycodone HCl (Oxycodone Hcl Ir 5 Mg Tab (Immediate Release)) 5 mg PO Q4H PRN PRN Reason: Pain Stop: 06/10/24 03:26 Paroxetine HCl (Paroxetine Hcl 20 Mg Tab) 40 mg PO DAILY [facility]ARDO Stop: 06/26/24 08:59 Last Admin: 06/02/24 08:57 Dose: 40 mg Prednisone (Prednisone 20 Mg Tab) 40 mg PO DAILY [facility] Stop: 06/30/24 08:59 Last Admin: 06/02/24 08:57 Dose: 40 mg Terazosin HCl (Terazosin Hcl 5 Mg Cap) 5 mg PO HS [facility] Stop: 06/29/24 20:59 Last Admin: 06/01/24 21:12 Dose: 5 mg Torsemide (Torsemide 20 Mg Tab) 40 mg PO QAM [facility] Stop: 07/03/24 08:59 (7) Pulmonary emphysema Emphysema type: centrilobular Qualified Code(s): J43.2 - Centrilobular emphysema
[2024-06-03] MEDS: TORSEMIDE 20 MG TAB PO SCH (08:23)
--- NOTE | 2024-06-03 11:04 | Cardiology Progress Note ---
Date of Service June 03, 2024 Assessment & Plan (1) Acute hypoxemic respiratory failure: (2) Acute on chronic diastolic heart failure with preserved ejection fraction: (3) Acute exacerbation of chronic obstructive pulmonary disease: (4) Hypertensive urgency: (5) Pleural effusion: Plan Serum sodium within normal range. IV furosemide discontinued 06/02/2024. Torsemide 40 mg daily added today. Continue at discharge. Would attribute significant improvement in wheezing to her change in bronchodilators and addition of prednisone. Increase activity as tolerated. Restart losartan 50 mg daily. (Outpatient dose 50 mg twice daily) Continue other antihypertensive medical regimen with amlodipine, hydralazine, carvedilol, terazosin, and diuretic. Tentative plan for complex vascular surgery at [facility] for treatment of infrarenal abdominal aortic stenosis with Dr. Wolf 06/27/2024. Admission and Anticipated Discharge Date Admission Date: May 27, 2024 Subjective Patient seen and examined at bedside. Feeling better today. Denies cough or wheeze. Telemetry reveals sinus rhythm in the 60s. Review of Systems Review of Systems: All systems reviewed & are unremarkable except as noted in Subjective Physical Exam Constitutional: well nourished; no acute distress Respiratory: normal respiratory effort; no respiratory distress Auscultation: + diminished lung sounds; no crackles, no rales, no rhonchi and no wheezes Cardiovascular: Rate/Rhythm: regular rate and regular rhythm Heart Sounds: normal S1 and normal S2; no murmur Vessels: no JVD Extremities: no edema Gastrointestinal (Abdomen): Inspection/Auscultation: normal bowel sounds; abdomen not distended Percussion/Palpation: abdomen soft; abdomen nontender, no guarding and abdomen not rigid Neurologic: CN's II-XI intact bilaterally and moves all extremities Results & Data Vital Signs (Past 12 Hours) Vital Signs Temp Pulse Pulse Resp BP Pulse Ox O2 Del Method 06/03/24 08:20 Room Air 06/03/24 07:52 36.5 C 65 18 163/69 H 95 Room Air 06/03/24 07:45 65 17 94 Room Air 06/03/24 07:00 59 L 06/03/24 03:30 67 17 96 Room Air 06/03/24 02:44 36.8 C 78 16 177/80 H 92 Room Air 06/02/24 22:58 36.9 C 61 18 172/75 H 99 Room Air 06/02/24 22:58 63 Laboratory Results Intake and Output 06/02/24 06/03/24 06/03/24 22:59 06:59 14:59 Intake Total 692.5 / 1222.5 290 / 290 Output Total 900 / 3500 600 / 3500 0 / 0 Balance -207.5 / -2277.5 -600 / -2277.5 290 / 290 Intake: IV 252.5 / 302.5 50 / 50 Azithromycin 250 mg In Dextrose 252.5 / 252.5 5% 250 ml @ 125 mls/hr IV Q24H MEDARDO Rx#:[id number] cefTRIAXone SODIUM 2,000 mg In 50 / 50 50 ml @ 100 mls/hr IV Q24H MEDARDO Rx#:[id number] Oral 440 / 920 240 / 240 Output: Urine 900 / 3500 600 / 3500 # Bowel Movements 0 / 0 Other: Other Intake Source sips # Unmeasured Voids 1 Weight 50.8 kg Weight Measurement Method Standing Scale
[2024-06-03] MEDS ORDERED: LOSARTAN POTASSIUM 25 MG TAB PO SCH (11:15)
[2024-06-03 11:41] VITALS: RESP 18; TEMP 98.2; O2SAT 99
[2024-06-03] MEDS: LOSARTAN POTASSIUM 50 MG TAB PO SCH (12:14)
[2024-06-03 13:28] VITALS: BP 172/68
--- NOTE | 2024-06-03 13:32 | Discharge Summary ---
Discharge Summary Date of Service June 03, 2024 Principal Dx & Hospital Course #1 = Principal Diagnosis (1) Acute on chronic diastolic heart failure with preserved ejection fraction: (2) Acute hypoxemic respiratory failure: (3) COPD exacerbation: (4) GARLAND (acute kidney injury): (5) Hyponatremia: (6) Hypertension, uncontrolled: (7) Pulmonary emphysema: (8) History of adenocarcinoma of lung: (9) Heterozygous factor V Leiden mutation: Plan This is a 59-year-old female who has a significant past medical history of chronic diastolic CHF, PSVT, PVD, mild MR, COPD, hypertension, lung adenocarcinoma status post surgery, GERD, history of inherited hypercoagulable state, CKD, chronic hyponatremia, chronic anemia, mood disorder intermittent tobacco abuse who presented to ED after falling off scaffolding and landing on her left shoulder resulting in pain. On admission she also reported worsening shortness of breath and dry cough. On admission patient was hypoxic in the 70s and SBP in the 200s. Symptoms were felt to be secondary to acute on chronic CHF exacerbation as well as COPD exacerbation. Cardiology was on board who transitioned her to IV Lasix and diuresed her appropriately. She was then transition to oral torsemide prior to discharge. She was seen and evaluated by pulmonology in regard to her COPD exacerbation. She was treated with IV antibiotic and prednisone therapy. She is being discharged to complete a course of oral azithromycin and a prednisone taper. Pulmonology also recommends starting on a Symbicort and Spiriva inhalers at discharge. It is also recommended that she have outpatient PFT testing and low-dose CT cancer screening. Her hospital course was also complicated with GARLAND and hyponatremia. Nephrology was consulted and manages this. I felt like her hyponatremia was in setting of hypervolemic hyponatremia and SIADH. Her sodium and renal function returned to baseline at discharge. Her blood pressure was significantly elevated and required adjustments to her medications. Her hydralazine was increased to 100 mg 3 times a day and her losartan was adjusted to 50 mg daily. Notes For Next Care Provider please obtain BMP at follow up appt for hyponatremia and GARLAND Pt needs PFTS and lung cancer screening CT as outpt Need to ensure cardiology follow up Medication Changes From Visit MEDICATION CHANGES: Azithromycin 250 mg 1 tablet daily for additional 3 days, next dose 06/04/2024, this is your antibiotic therapy Prednisone Taper as follows: Next dose due 06/04/24 * 40 mg ( 2 tablets) daily for 3 days * 30mg ( 1.5 tablets) daily for 3 days * 20mg (1 tablet) daily for 3 days * 10 mg ( 0.5mg tablet) daily for 3 days then stop Increase your Hydralazine to 100mg three times daily, next dose due evening of 06/03/24. Decrease your Losartan to 50mg by mouth daily, next dose 06/04/24. STOP TAKING LASIX; You are now prescribed Torsemide 40mg one tablet by now daily, next dose due 06/04/24. NEW INHALERS: STOP INCRUSE * Symbicort 1 inhalation twice daily * Spirivia 1 capsule inhaled daily Admission HPI Per Admitting Provider History obtained from patient and records. Medical history significant for chronic diastolic heart failure (EF 55 to 60%, TTE 2023), PSVT, PVD, mild MR, COPD, hypertension, lung adenocarcinoma status post surgery, GERD, hx inherited hypercoagulable state as per records (early demise: heterozygous Factor V Leiden mutation, heterozygous MTHFR mutation, heterozygous prothrombin gene mutation) status post anticoagulation during , CRI (baseline creatinine 1.3-1.4), chronic hyponatremia, chronic anemia (baseline hemoglobin of 10), cervical dysplasia, mood disorder, intermittent tobacco abuse. Last confinement November 2023 for COPD exacerbation and CHF. TTE showed EF of 55 to 60%, mild MR, diastolic dysfunction with trivial circumferential pericardial effusion. Patient fell off scaffolding yesterday landing on her left shoulder resulting in pain. No head trauma, LOC. Yesterday, patient had worsening SOB without chest pain complaints. Dry cough symptoms. Denies headache. Denies aspiration. Not sure about sick contacts. Not sure about fluid retention. Compliant with home medications. SBP 200s, O2 sat 70s upon arrival at the ER. Ceftriaxone, azithromycin, Solu-Medrol, and neb treatment administered at the ER. Patient currently feeling much better. 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 Admission Exam Per Admitting Provider GENERAL: Comfortable, flat affect, no respiratory distress SKIN: Pallor, warm HEENT: Bespectacled, pale palpebral conjunctivae, no ptosis, moist buccal mucosa, nasal cannula in place NECK : Supple, no tenderness CHEST : Decreased breath sounds, no tenderness HEART : RRR, no obvious murmurs ABDOMEN: Some distention, nontender EXTREMITIES : No LE swelling/tenderness, left shoulder tenderness, no other conspicuous deformities noted NEUROLOGIC : Coherent, no facial asymmetry, no other gross focality Discharge Exam Gen: WD/WN, NAD, A&O x3 HEENT: Normocephalic, atraumatic, conjunctivae moist, sclerae anicteric, mucous membranes moist. Lung: Clear to Auscultation bilaterally, no wheezes/rales/rhonchi Heart: Regular rate, regular rhythm, 2/6 KATIE LUSB, no rubs, or gallops Abdomen: Soft, NT, ND +BS x 4 Extremities: No edema Skin: Warm, no rash, negative turgor. Updated Medication List Medication Instructions Recorded Confirmed Type aripiprazole 5 mg tablet (Abilify) 5 mg PO DAILY 12/03/19 05/27/24 History aspirin 81 mg tablet 81 mg PO DAILY 02/04/20 05/27/24 History cetirizine 10 mg tablet 10 mg PO DAILY 02/04/20 05/27/24 History clonazepam 0.5 mg tablet 0.5 mg PO BID PRN Anxiety 02/04/20 05/27/24 History amlodipine 10 mg tablet 10 mg PO DAILY 08/01/21 05/27/24 History atorvastatin 20 mg tablet 20 mg PO DAILY 06/11/23 05/27/24 History carvedilol 25 mg tablet 25 mg PO BID 06/11/23 05/27/24 History paroxetine HCl 40 mg tablet 40 mg PO DAILY 06/11/23 05/27/24 History albuterol sulfate 2.5 mg/3 mL 2.5 mg (3 mL) inhalation Q4H PRN 06/15/23 05/27/24 Rx (0.083 %) solution for nebulization shortness of breath or wheezing #180 mL benzonatate 100 mg capsule 100 mg PO TID PRN cough #20 caps 06/15/23 05/27/24 Rx terazosin 1 mg capsule 2 mg (2 x 1 mg) PO HS #30 caps 06/15/23 05/27/24 Rx acetaminophen 650 mg 650 mg PO Q8H PRN Pain 10/21/23 05/27/24 History tablet,extended release albuterol sulfate 90 mcg/actuation 2 puff inhalation Q4H PRN 01/04/24 05/27/24 Rx aerosol inhaler (Ventolin HFA) shortness of breath ,coughing or wheezing #18 grams azithromycin 250 mg tablet 250 mg PO DAILY #3 tabs 06/03/24 Rx budesonide-formoterol HFA 160 1 inh inhalation BID #10.2 grams 06/03/24 Rx mcg-4.5 mcg/actuation aerosol inhaler (Symbicort) hydralazine 50 mg tablet 100 mg (2 x 50 mg) PO TID 30 days 06/03/24 Rx #90 tabs losartan 50 mg PO DAILY ##0 06/03/24 05/27/24 Rx prednisone 20 mg tablet See Taper PO DAILY #15 tabs 06/03/24 Rx tiotropium bromide 18 mcg capsule 1 cap inhalation DAILY #30 06/03/24 Rx with inhalation device (Spiriva inhalations with HandiHaler) torsemide 20 mg tablet 40 mg (2 x 20 mg) PO QAM #30 tabs 06/03/24 Rx Hospital Stay Data Consultations 05/27/24 03:11 ED Decision to Admit Stat 05/27/24 06:24 Consult Cardiology Routine Plan Serum sodium within normal range. IV furosemide discontinued 06/02/2024. Torsemide 40 mg daily added today. Continue at discharge. Would attribute significant improvement in wheezing to her change in bronchodilators and addition of prednisone. Increase activity as tolerated. Restart losartan 50 mg daily. (Outpatient dose 50 mg twice daily) Continue other antihypertensive medical regimen with amlodipine, hydralazine, carvedilol, terazosin, and diuretic. Tentative plan for complex vascular surgery at [facility] for treatment of infrarenal abdominal aortic stenosis with Dr. Wolf 06/27/2024. 05/27/24 07:58 Consult Nephrology Routine 1) GARLAND (acute kidney injury): Plan: on admission creatinine was 1.7 which is higher than her baseline of normal. however her renal function has been all over the place in the last few months with some episodes of acute kidney injury also. Most recent outpatient lab was from May 07, 2024 and showed a creatinine of 1.4. looking at the trend this can be regarded as her baseline. On admission it was 1.7, this is now at baseline Etiology of acute kidney injury was most likely hemodynamic in the setting of respiratory failure and de compensated heart failure. no further workup is needed for the etiology of acute kidney injury she does need daily renal panel as well as strict input output charting. - Change to torsemide 40 mg from and DC IV Lasix from tomorrow (2) Acute hyponatremia: Plan: him to assume this as hypervolemic hyponatremia in the setting of decompensated congestive heart failure. .Na wnl now, with diuresis. start on torsemide as above 05/29/24 12:02 Consult Pulmonology Routine 1) Acute exacerbation of chronic obstructive pulmonary disease: Plan: Patient with ongoing COPD exacerbation. Symptoms improving oxygen requirements proving today. Continue Pulmicort and Perforomist. Will transition to oral prednisone. Would recommend a 2-week course. Can likely be discharged home in the next 1 to 2 days. Patient notes roughly [id number] smoking history. Will need outpatient PFTs and low-dose lung cancer screening with CT chest. Once she is ready, would recommend discharging her on Symbicort and Spiriva. (2) Acute respiratory failure with hypoxia: Plan: Wean O2 as able. O2 requirements improving. Hypoxia due to bronchospasm. (3) Pleural effusion: Plan: Right pleural effusion is very small and not amenable to thoracentesis at this time. Diagnostic Imagining Performed Chest X-Ray 05/27/24 00:33 XR chest 1V portable HISTORY: Shortness of breath. COMPARISON: Chest 12/05/2023. FINDINGS: No pneumothorax. The heart remains mildly enlarged. Small bilateral pleural effusions and patchy bibasilar densities most pronounced on the right. This has progressed in the interval and may represent a pneumonia. Interstitial thickening has progressed and suggest mild interstitial pulmonary edema. Emphysema again noted. IMPRESSION: 1. Interval progression of the mild interstitial pulmonary edema and small bilateral pleural effusions. 2. Bibasilar densities have also progressed. This could represent atelectasis from the pleural effusions or a pneumonitis. ACT 112: Negative or not required by law. Electronically signed by: Bhavik Lowe M.D. 05/27/2024 7:19 AM Shoulder X-Ray 05/27/24 00:33 XR shoulder LT min 2V routine CLINICAL HISTORY: Trauma. COMPARISON: Chest CT November 30, 2023. FINDINGS: Alignment of the left shoulder is anatomic. There are no fractures. There are no osseous lesions. Postoperative findings within the left hemithorax are incidentally noted. IMPRESSION: No fracture or dislocation within the left shoulder. ACT 112: Negative or not required by law. Electronically signed by: Kwame Weir M.D. 05/27/2024 6:[address] 05/27/24 03:26 Exam(s): CT CHEST Without Contrast EXAM: CT Chest Without Intravenous Contrast CLINICAL HISTORY: Reason for exam: cough. TECHNIQUE: Axial computed tomography images of the chest without intravenous contrast. CTDI is 6.38 mGy and DLP is 222.13 mGy-cm. Automated exposure control was utilized for the study. A dose lowering technique was utilized adhering to the principles of ALARA. COMPARISON: No relevant prior studies available. FINDINGS: Lungs: Interstitial changes in the lungs which can be seen with interstitial pulmonary edema. Severe upper lobe prominent centrilobular emphysema. This asymmetrically affects the right lung. Dependent right lower lung airspace disease which may relate to atelectatic changes. Pleural space: Moderate right and small left pleural effusions with adjacent compressive atelectasis. Findings are favored to relate to sequela of volume overload. No pneumothorax. Heart: Cardiomegaly with pericardial effusion measuring 8 mm. No significant coronary artery calcifications. Bones/joints: Degenerative changes in the spine. No acute fracture. No dislocation. Soft tissues: Unremarkable. Vasculature: Atherosclerotic disease. Partially visualized complete occlusion of the infrarenal abdominal aorta with calcifications. No thoracic aortic aneurysm. Lymph nodes: Unremarkable. No enlarged lymph nodes. IMPRESSION: 1. Moderate right and small left pleural effusions with adjacent compressive atelectasis. Findings are favored to relate to sequela of volume overload. 2. Interstitial changes in the lungs which can be seen with interstitial pulmonary edema. 3. Severe upper lobe prominent centrilobular emphysema. This asymmetrically affects the right lung. 4. Cardiomegaly with pericardial effusion measuring 8 mm. 5. Partially visualized complete occlusion of the infrarenal abdominal aorta with calcifications. 6. No other acute findings. 7. Incidental findings as described. Electronically signed by: Boris Sanchez MD 05/27/24 05:[address] 05/27/24 20:44 Exam(s): CT FACIAL Without Contrast EXAM: CT Maxillofacial Without Intravenous Contrast CLINICAL HISTORY: Reason for exam: swelling. TECHNIQUE: Axial computed tomography images of the face without intravenous contrast. CTDI is 36.3 mGy and DLP is 648.2 mGy-cm. Automated exposure control was utilized for the study. A dose lowering technique was utilized adhering to the principles of ALARA. COMPARISON: No relevant prior studies available. FINDINGS: Bones/joints: Surgical changes from previous left temporomandibular joint arthroplasty. There is severe degenerative changes involve the right temporomandibular joint. No facial fracture is identified. Soft tissues: Mild preseptal soft tissue edema involving the left orbit suggesting preseptal orbital cellulitis. Orbits: The globes are symmetrical. The retrobulbar soft tissues are normal. Sinuses: Unremarkable. No air-fluid levels. Dental: The patient is edentulous. IMPRESSION: 1. No facial fracture is identified. 2. Mild preseptal soft tissue edema involving the left orbit suggesting preseptal orbital cellulitis. 3. Surgical changes from previous left temporomandibular joint arthroplasty. There is severe degenerative changes involve the right temporomandibular joint. Electronically signed by: Abdirahman Cheema MD 05/28/24 01:32 AM Chest X-Ray 05/28/24 04:15 SINGLE VIEW CHEST CLINICAL HISTORY: Dyspnea FINDINGS: An AP, portable, upright chest radiograph is compared to chest x-ray and chest CT dated 05/27/2024. The heart is enlarged noting atherosclerotic calcification of the thoracic aorta. There is pulmonary vascular congestion. Emphysema and chronic interstitial thickening is similar to previous. There are bilateral pleural effusions with dependent consolidation, right greater than left. Elevation of left hemidiaphragm is similar to previous. No pneumothorax is seen. The skeletal structures are osteopenic. The bony thorax is grossly intact. IMPRESSION: 1. Cardiomegaly with evidence of congestive failure. 2. Emphysema. 3. Right larger than left pleural effusions with dependent consolidation. Radiographic follow-up to resolution is recommended ACT 112: Negative or not required by law. Electronically signed by: Rudi Dobbs M.D. 05/28/2024 8:12 AM Pending Results Patient Have Any Pending Studies at Discharge: No Discharge Instructions Given to Patient (Per Discharging Provider) MEDICATION CHANGES: Azithromycin 250 mg 1 tablet daily for additional 3 days, next dose 06/04/2024, this is your antibiotic therapy Prednisone Taper as follows: Next dose due 06/04/24 * 40 mg ( 2 tablets) daily for 3 days * 30mg ( 1.5 tablets) daily for 3 days * 20mg (1 tablet) daily for 3 days * 10 mg ( 0.5mg tablet) daily for 3 days then stop Increase your Hydralazine to 100mg three times daily, next dose due evening of 06/03/24. Decrease your Losartan to 50mg by mouth daily, next dose 06/04/24. STOP TAKING LASIX; You are now prescribed Torsemide 40mg one tablet by now daily, next dose due 06/04/24. NEW INHALERS: STOP INCRUSE * Symbicort 1 inhalation twice daily * Spirivia 1 capsule inhaled daily SUMMARY OF TEST RESULTS: You were admitted to hospital due to low oxygen levels. You were found to have a COPD Exacerbation and CHF exacerbation. You were treated with IV antibiotics, Steroids, IV diuretic and your symptoms gradually improved. You were seen and evaluated by the heart and lung Doctors. You also were found to have acute kidney injury and low sodium which was managed by a kidney Doctor. This improved with medication and fluid restriction. Your blood pressure was elevated during hospital stay and cardiology adjusted your blood pressure medications. PENDING TEST RESULTS: None RECOMMENDATIONS FOR FOLLOW-UP: Please follow up with Primary Care Provider as scheduled. It is recommended you have outpatient Pulmonary Function Studies done to determine severity of your COPD. It is also recommended that you undergo low dose lung cancer CT chest screening due to your history of smoking. Please discuss this with your Primary Care Provider. It is recommended you establish with a lung doctor after discharge from the hospital to help manage your COPD. Please follow up with Cardiology as scheduled to manage your blood pressure and heart failure. It is recommended you have a repeat BMP (metabolic panel to evaluate your kidney function and sodium) at your follow up appointment with your Primary Care Pro vider. Please weigh yourself daily. If you notice a weight gain of more that 5lbs in a week please contact your Primary Care of Cardiology Provider. Please monitor blood pressure twice daily and keep a log of this. Adjustments were made to your blood pressure medications at discharge. Please take your log to your Primary Care appointment. OTHER INSTRUCTIONS: Seek medical attention if you have: * temperature above 101 * chest pain or trouble breathing * abdominal pain, nausea, vomiting * diarrhea, dark stools or bloody stools * any unanswered questions or concerns Call 911 if symptoms are severe. Please take good care of yourself. It has been a pleasure taking care of you. Please take care of yourself. If you have any questions regarding your recent hospitalization please contact [facility] and request vicki Lovettist @ [phone]. Gladis Gardner PA-C Total Time Total Time Spent Total Time Spent (In Minutes): 45 minutes Supervising Physician Co-Signing Physician Notes Attending addendum: The patient was seen and examined in medical telemetry unit She has been much better for the last 2 days Does not have any shortness of breath or wheezing at rest Denies any other significant symptoms On examination Lying in bed without any acute distress Hemodynamically stable Chest examination did not show any significant wheezing and no crackles Her labs, medications and imaging studies reviewed COPD exacerbation seems controlled now Hyponatremia has been corrected Cardiac status remained stable Agree with assessment plan as outlined above by Pinky Cloud PA-C and take the full responsibility of the care A total of 20 minutes spent in patient care, documentation and reviewing the chart. DR Mina Calderon
[2024-06-03 14:41] VITALS: PULSE 62
== END 2024-06-03 15:26 | disposition home or self-care (01) | DRG 291 ==
LOC: ED 00:20 → EDINP 03:24 → SUATTDRO 03:24 → 2W 18:59